=== PATIENT | female | born 1955 | race Caucasian/White ===

== ENCOUNTER 2021-02-13 14:48 | Inpatient (IN) | payer BC ==
[2021-02-13] MEDS ORDERED: NITROGLYCERIN SL TABS 0.4 MG TAB SUBLINGUAL PRN ×2 (15:01→16:18)
[2021-02-13] MEDS ORDERED: HEPARIN SODIUM 1,000 UN/ML (10ML VL) IV ONE ×2 (15:01→15:33)
[2021-02-13] MEDS ORDERED: LORazepam 2 MG/ML INJ IV STA (15:03)
[2021-02-13 15:08] LABS: Anisocytosis Slight; HCT 40.2 % (34.0-46.0); HGB 12.4 gm/dL (11.4-16.0); Hypochromasia Marked; MCH 30.6 pg (25.0-35.0); MCHC 30.9 g/dL (31.0-37.0); MCV 99.3 fL (80.0-100.0); Macrocytosis Slight; Mean Platelet Volume 8.2; Platelet Count 221 k/uL (150-450); Poikilocytosis Moderate; RBC 4.05 m/uL (3.80-5.40); RDW 17.3 % (11.5-15.5); WBC 20.5 k/uL (3.8-10.6)
[2021-02-13 15:08] LABS: Glucose,Whole Blood 244 mg/dL (75-99)
[2021-02-13] MEDS ORDERED: ASPIRIN 325 MG TAB ONE (15:26)
[2021-02-13] MEDS ORDERED: TICAGRELOR 90 MG TAB ONE (15:26)
[2021-02-13] MEDS ORDERED: LIDOCAINE 1% INJ 10MG/ML (20 ML MDV) SQ ONE (15:27)
[2021-02-13] MEDS ORDERED: SODIUM CHLORIDE 0.9% 500 ML 500 ML IV ONE (15:27)
[2021-02-13] MEDS ORDERED: VERAPAMIL SYRINGE (5 MG/10 ML) INTRAARTER ONE (15:28)
[2021-02-13] MEDS ORDERED: HEPARIN SODIUM 1,000 UN/ML (10ML VL) ONE (15:30)
--- NOTE | 2021-02-13 15:31 | XR ---
EXAMINATION TYPE: XR chest 1V portable DATE OF EXAM: 02/13/2021 COMPARISON: Chest x-ray 12/30/2013 HISTORY: Chest pain, intubated TECHNIQUE: Single frontal view of the chest is obtained. FINDINGS: Endotracheal tube is overlying the tracheal air column, there are overlying artifacts. The re is airspace disease seen within the right lung and possibly left. Heart size may be accentuated by apical lordotic and rotated technique. No evident pneumothorax or pleural effusion. Surgical clips a re present right upper quadrant. There is thoracic spondylosis. There is a displaced left third and f ifth rib fracture, nondisplaced left fourth rib fracture IMPRESSION: Status post intubation. There may be underlying pulmonary edema or pneumonia, follow-up PA and lateral chest x-ray when stable. Rib fractures noted on the left.
[2021-02-13] MEDS ORDERED: TICAGRELOR 90 MG TAB OG-TUBE ONE (15:33)
[2021-02-13] MEDS ORDERED: ASPIRIN 325 MG TAB OG-TUBE ONE (15:33)
--- NOTE | 2021-02-13 15:33 | P.CRDCN ---
History of Present Illness History of present illness: HISTORY OF PRESENTING ILLNESS This is a pleasant 65-year-old female past medical history significant for type 2 diabetes, hypertension, dyslipidemia. 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 We have been asked to see in consultation for STEMI. Patient is seen and examined in the emergency department. Apparently, patient was not feeling well during the day, she thought it was her blood sugars, she had symptoms of indigestion. She collapsed and arrested at home. EMS was called. CPR was ini tiated, patient was intubated on scene, given 5 doses of Epi, 5 shocks, 450mg IV amiodarone. ROSC was achieved. patient was transported to [facility]. On arrival to ER, patient's went into cardiac arrest, CPR was initiated with 1 Epi and 1 Bicarb given. EKG revealed atrial fibrillation with ST elevation V2-V5. REVIEW OF SYSTEMS Unable to complete review of systems due to mechanical ventilation PHYSICAL EXAMINATION Blood pressure 90s/50s HR 80s, still in a fib. CONSTITUTIONAL: Intubated on Mechanical Ventilation CHEST EXAMINATION: Lungs are diminished to auscultation bilaterally HEART EXAMINATION: Irregular rate and rhythm. S1, S2 heard. ABDOMEN: Soft, nontender. EXTREMITIES: 2+bilateral lower extremity edema NEUROLOGIC EXAMINATION: Intubated, mechanically ventilated ASSESSMENT STEMI Atrial fibrillation, unclear if paroxysmal or persistent at this time History of hypertension History of hyperlipidemia PLAN -Will proceed with cardiac catheterization at this time with Dr. Myles -Will reach out to family -Further recommendations based on clinical course Nurse Practitioner note has been reviewed, I agree with a documented findings and plan of care. Patient was seen and examined. Past Medical History Past Medical History: Unable to Obtain History of Any Multi-Drug Resistant Organisms: Unobtainable Past Surgical History: Unable to Obtain Past Psychological History: Unable to Obtain Smoking Status: Unknown if ever smoked Past Alcohol Use History: Unable to Obtain Past Drug Use History: Unable to Obtain Medications and Allergies Home Medications Medication Instructions Recorded Confirmed Type Aspirin 1 tab PO DAILY 02/18/14 02/22/14 History Atorvastatin [Lipitor] 40 mg PO DAILY 02/18/14 02/22/14 History Famotidine [Pepcid] 10 mg PO BID 02/18/14 02/22/14 History Insulin Glulisine [Apidra] 0 unit SQ DAILY 02/18/14 02/22/14 History Insulin NPH/Reg Insulin 70/30 0 unit SQ PC-BID 02/18/14 02/22/14 History [humuLIN 70/30 VIAL] Levothyroxine Sodium [Synthroid] 200 mcg PO DAILY 02/18/14 02/22/14 History Metoprolol Succinate [Toprol XL] 50 mg PO DAILY 02/18/14 02/22/14 History Telmisartan/Hydrochlorothiazid 1 each PO DAILY 02/18/14 02/22/14 History [Micardis Hct 40-12.5 mg Tablet] metFORMIN HCL [Glucophage] 500 mg PO BID 02/18/14 02/22/14 History rOPINIRole HCL [Requip] 0.25 mg PO HS 02/18/14 02/22/14 History Allergies Allergy/AdvReac Type Severity Reaction Status Date / Time Penicillins AdvReac Rash/Hives Verified 02/13/21 14:55 Physical Exam Vitals: Vital Signs Temp Pulse Resp BP Pulse Ox 02/13/21 15:11 85 16 93/57 02/13/21 15:08 93 16 92/68 94 L 02/13/21 14:56 97.3 F L 79 16 118/71 96 Intake and Output 02/13/21 02/13/21 02/13/21 06:59 14:59 22:59 Other: Weight 132.676 kg Results Current Medications Generic Name Dose Route Start Last Admin Trade Name Freq PRN Reason Stop Dose Admin Propofol 1,000 mg/ IV Solution 100 mls @ 0 mls/hr 02/13/21 15:15 IV .Q0M ADRIANA Protocol Titrate Nitroglycerin 0.4 mg 02/13/21 15:01 Nitroglycerin Sl Tabs 0.4 Mg Tab SUBLINGUAL Q5M PRN Chest Pain Intake and Output 02/13/21 02/13/21 02/13/21 06:59 14:59 22:59 Other: Weight 132.676 kg Patient Weight 02/14/21 06:59 Weight 132.676 kg
--- NOTE | 2021-02-13 15:34 | ED ---
CPR HPI - General Chief Complaint: Cardiac Arrest/CPR Stated Complaint: CPR Time Seen by Provider: 02/13/21 14:48 Source: EMS, RN notes reviewed Mode of arrival: EMS Limitations: altered mental status, physical limitation - History of Present Illness Initial Comments: 65-year-old female history diabetes no prior history of heart disease who apparently been having issues with her blood sugar all day and she had a witnessed arrest in front of family members. EMS was called a Jody protocol was begun patient was noted be in ventricular fibrillation. Patient was intubated with a 7.5 and a tracheal tube she was placed on monitor found have ventricular fibrillation she was shocked a total of 5 times she was given 450 mg of amiodarone. This continued the patient did get return of spontaneous circulation briefly upon arrival here was noted to be pulseless in what appear to be a PDA rhythm. ACLS was continued. MD Complaint: collapsed during rest - Related Data Home Medications Medication Instructions Recorded Confirmed Aspirin 1 tab PO DAILY 02/18/14 02/22/14 Atorvastatin [Lipitor] 40 mg PO DAILY 02/18/14 02/22/14 Famotidine [Pepcid] 10 mg PO BID 02/18/14 02/22/14 Insulin Glulisine [Apidra] 0 unit SQ DAILY 02/18/14 02/22/14 Insulin NPH/Reg Insulin 70/30 0 unit SQ PC-BID 02/18/14 02/22/14 [humuLIN 70/30 VIAL] Levothyroxine Sodium [Synthroid] 200 mcg PO DAILY 02/18/14 02/22/14 Metoprolol Succinate [Toprol XL] 50 mg PO DAILY 02/18/14 02/22/14 Telmisartan/Hydrochlorothiazid 1 each PO DAILY 02/18/14 02/22/14 [Micardis Hct 40-12.5 mg Tablet] metFORMIN HCL [Glucophage] 500 mg PO BID 02/18/14 02/22/14 rOPINIRole HCL [Requip] 0.25 mg PO HS 02/18/14 02/22/14 Allergies Allergy/AdvReac Type Severity Reaction Status Date / Time Penicillins AdvReac Rash/Hives Verified 02/13/21 14:55 Review of Systems ROS Statement: Those systems with pertinent positive or pertinent negative responses have been documented in the HPI. Limitations: ROS unobtainable due to patients medical condition Past Medical History Past Medical History: Unable to Obtain History of Any Multi-Drug Resistant Organisms: Unobtainable Past Surgical History: Unable to Obtain Past Psychological History: Unable to Obtain Smoking Status: Unknown if ever smoked Past Alcohol Use History: Unable to Obtain Past Drug Use History: Unable to Obtain General Exam - General Exam Comments Initial Comments: This is a well-developed obese female who is unresponsive with ACLS protocol in progress including chest compressions Limitations: altered mental status, physical limitation General appearance: other (Unresponsive) Head exam: Present: atraumatic, normocephalic, normal inspection Eye exam: Present: other (Pupils midline and minimally responsive) ENT exam: Present: other (Orotracheal tube in place) Neck exam: Present: normal inspection, other (No stridor JVD or bruits) Respiratory exam: Present: other (Good breath sounds with ventilatory efforts) Cardiovascular Exam: Present: other (Initially pulseless) GI/Abdominal exam: Present: soft, distended. Absent: bruit, pulsatile mass Rectal exam: Present: deferred Extremities exam: Present: other (Mottled-appearing skin) Back exam: Present: normal inspection Neurological exam: Present: other (Unresponsive) Skin exam: Present: other (Pale and mottled) Course Vital Signs 02/13/21 02/13/21 02/13/21 14:56 15:08 15:11 Temperature 97.3 F L Pulse Rate 79 93 85 Respiratory 16 16 16 Rate Blood Pressure 118/71 92/68 93/57 O2 Sat by Pulse 96 94 L Oximetry - Reevaluation(s) Reevaluation #1: 02/13/21 15:29 Shortly after ACLS protocol was continued the patient was noted have a pulse. EKG was performed showing evidence of an atrial fibrillation rhythm with ST elevations in leads V2 V3 V4 extending into V5. A STEMI alert was called Dr. tom on did come to the emergency department to see the patient. Patient was taken to the Engineering Equipment Operator. Reevaluation #2: 02/13/21 15:30 I did discuss the case with Dr. Nobles who is the admitting physician. Procedures - [place] Protocol (Time Out) Patient Identification (2 identifiers required): Chart, Arm Band Site Marked: Not Applicable Medical Decision Making - Lab Data Lab Results 02/13/21 Range/Units 14:58 POC Glucose (mg/dL) 244 H (75-99) mg/dL POC Glu Polo Coach ID Ana Martino - Radiology Data Radiology results: report reviewed (Image reviewed as well as report evidence of infiltrate versus pulmonary edema rib fractures on the left noted. Refreshes her left third and fifth rib fractures. Nondisplaced left fourth rib fracture ET tube does appear to be in good position), image reviewed Critical Care Time Critical Care Time: Yes Total Critical Care Time: 31 Critical Care Time: Critical care time includes initial presentation with history physical labs x- rays discussed with paramedics on arrival discussion with the admitting physician cardiology group. Review of old charting was available documentation of the above. Disposition Clinical Impression: Acute myocardial infarction, Cardiac arrest, Cardiac arrest with ventricular fibrillation, Signs of return of spontaneous circulation Disposition: ADMITTED IP TO THIS [facility] Condition: Critical Referrals: Thierno Brambila DO [Primary Care Provider] - 1-2 days
[2021-02-13 15:37] LABS: Albumin 3.4 g/dL (3.5-5.0); Calcium 8.6 mg/dL (8.4-10.2); Potassium 2.8 mmol/L (3.5-5.1); Total Bilirubin 0.4 mg/dL (0.2-1.3); Total Protein 6.2 g/dL (6.3-8.2)
[2021-02-13 15:42] LABS: INR 2.7 (<1.2); Partial Thromboplastin Time 26.2 sec (22.0-30.0); Prothrombin Time 26.1 sec (9.0-12.0)
[2021-02-13] MEDS: MIDAZOLAM 2 MG/2 ML VIAL IV ONE ×2 (15:50→16:05)
[2021-02-13] MEDS: METOPROLOL TARTRATE 5 MG/5 ML VIAL IVP ONE ×2 (16:00→16:15)
[2021-02-13] MEDS: POTASSIUM CHLORIDE 20 MEQ in WATER FOR INJECTION 1 100ML.BAG IVPB SCH ×4 (16:00→22:29)
[2021-02-13] MEDS ORDERED: METOPROLOL TARTRATE 5 MG/5 ML VIAL IVP ONE (16:04)
[2021-02-13 16:14] LABS: Band Neutrophils % 24 %; Eosinophils # (M) 0.21 k/uL (0-0.7); Lymphocytes # (M) 9.84 k/uL (1.0-4.8); Metamyelocytes # (M) 0.21 k/uL (0); Metamyelocytes % 1 %; Neutrophils % (M) 26 %; Nucleated Red Blood Cells 0 /100 WBC (0-0); Total Cells Counted 100
[2021-02-13] MEDS ORDERED: IOPAMIDOL-370 125ML BTL INJ ONE (16:16)
[2021-02-13] MEDS ORDERED: IOPAMIDOL-370 100ML BTL INJ ONE (16:17)
[2021-02-13] MEDS ORDERED: RX INFO: IV CONTRAST WAS GIVEN 1 EACH MISC MISCELLANE PRN (16:18)
[2021-02-13] MEDS ORDERED: ATROPINE SULFATE 0.1 MG/ML 10ML SYRINGE IV PRN (16:18)
[2021-02-13] MEDS ORDERED: MAG HYDROX/AL HYDROX/SIMETH 30 ML CUP PO PRN (16:18)
[2021-02-13] MEDS ORDERED: ZOLPIDEM 5 MG TAB PO PRN (16:18)
[2021-02-13 16:19] LABS: ABG Base Excess -5.8 mmol/L; ABG HCO3 21 mmol/L (21-25); ABG Oxygen Saturation 87.5 % (94-97); ABG PCO2 47 mmHg (35-45); ABG PH 7.26 (7.35-7.45); ABG TCO2 23 mmol/L (19-24); Allen Test Performed? Yes
[2021-02-13 16:23] LABS: ABG PO2 59 mmHg (83-108)
[2021-02-13 17:02] LABS: Glucose,Whole Blood 233 mg/dL (75-99)
--- NOTE | 2021-02-13 17:23 | CC ---
CARDIAC CATHETERIZATION REPORT DATE OF PROCEDURE: 02/13/2021 Mrs. Hale is a 65-year-old female with a known history of hypertension, hyperlipidemia, diabetes mellitus, who had a sudden cardiac arrest at home, was defibrillated and CPR was initiated by the EMS. She was transferred to the emergency room, where she had PEA requiring repeat CPR. Patient was intubated. Her EKG showed ST-segment elevation anteriorly. In view of that, recommendation was made regarding cardiac catheterization. No family was available. PROCEDURE DESCRIPTION: Patient was brought to the labor relations specialist. She was draped and prepped in conventional fashion. Using Seldinger technique, a 6-Rwandan sheath was introduced in the right radial artery. Selective left coronary angiography was performed using 6-Rwandan 3.75 EBU guiding catheter. After obtaining images of the left anterior descending artery and performing angioplasty and stenting, a 5-Rwandan 3.5 bend right Priscilla catheter was used to obtain images of the right coronary artery and the guiding catheter was used to cross the aortic valve. At the end procedure, catheter and sheath were removed. Hemostasis was obtained with deployment of a TR band. There was no immediate complication. Patient was returned to her room in stable condition, intubated but hemodynamically stable. FINDINGS: FLUOROSCOPY: There was calcification involving the left anterior descending artery in the proximal segment. LEFT MAIN: This is a large-sized vessel bifurcating into left circumflex and left anterior descending coronary artery. Left main coronary artery has no evidence of high- grade stenosis. LEFT ANTERIOR DESCENDING ARTERY: This is a large-sized vessel giving rise to 2 diagonal branches. At the takeoff of the second diagonal branch in the proximal segment at the takeoff of the first septal crane hoist or lift operator there is a 90% eccentric lesion in a heavily calcified segment. Following that, the vessel is totally occluded with no significant antegrade flow. LEFT CIRCUMFLEX: This is a large-sized vessel, nondominant, giving rise to a large obtuse marginal branch. The left circumflex as well as its branches have no evidence of obstructive coronary artery disease. RIGHT CORONARY ARTERY: This is a large dominant vessel bifurcating distally into PDA and posterolateral segment and branches. The right coronary artery in the proximal segment has an area of stenosis of 50% to 60%. There is another plaque in the mid segment distally bifurcating into PDA and PLV. The PLV appears to be totally occluded with no antegrade flow. COLLATERALS: There is a collateral from the septal crane hoist or lift operator toward the PLV. LEFT VENTRICULOGRAM: Left ventriculogram was not performed. HEMODYNAMICS: There was no gradient across the aortic valve. The left ventricular end- diastolic pressure was 30 to 35 mmHg. ANGIOPLASTY: After cannulating the left main, using a 0.014 balanced medium weight J-wire with the help of a FineCross microcatheter, the total occlusion was crossed and the wire was positioned distally. The microcatheter was removed and a 2.5 x 12 mm Trek balloon was advanced, and two inflations at 8 atmospheres were done. Following that the balloon was removed and a 2.75 x 28 mm Xience Skypoint stent was deployed and post-dilated at 16 atmospheres. Following that the balloon was removed and a 3.25 x 12 mm Xience Skypoint stent was deployed proximal to the first one and post-dilated at 14 atmospheres. Following that, a 3.25 x 12 mm NC Trek balloon was advanced, and inflations in proximal segment of the stents were performed at maximum of 12 atmospheres. After the last inflation, after appropriate wait, the balloon and the guidewire were withdrawn back into the guiding catheter. Images were obtained and repeated. Those images revealed stable successful stenting. Subsequently images of the right coronary artery were performed. Following that, catheter and sheath were removed. Of note, patient received a loading dose of Brilinta as well as 9000 mg of intravenous heparin. The ACT was followed. RESULTS: 1. Totally occluded proximal LAD with reduction of stenosis post angioplasty from 100% to 0%. 2. 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 RECOMMENDATIONS: The patient will be continued on aspirin, Brilinta, beta beni, GONZALEZ inhibitor and statin. An echocardiogram with Doppler will be obtained. Her cardiac enzymes will be followed. Neurologically she will be followed, and depending on her progress, further recommendations will be made. The prognosis remains guarded. Duration of the sedation was 47 minutes. MMFILIPPOL / JOHNN: [id number] /
--- NOTE | 2021-02-13 17:28 | LTR ---
February 13, 2021 To: Dr. Brambila Regarding: Radha Hale (59) Dear Dr. Brambila, I had the pleasure of performing coronary angiography, angioplasty and stenting on Mrs. Hale at [facility] on February 13, and a full copy of the procedure note will be forwarded to you. In brief, she presented with an acute anterior wall myocardial infarction and underwent successful recanalization of the totally occluded LAD. I am hopeful that this procedure will stabilize her status and hopefully her neurological status will stabilize. Depending on her progress, further recommendations will be made. Thank you again for allowing me to participate in this patient's care. Please feel free to call with any questions. Sincerely, Jasper Myles M.D. BLAKE / ZORAIDA: [id number] /
[2021-02-13] MEDS: SODIUM CHLORIDE 0.9% 1,000 ML IV SCH (18:00)
--- NOTE | 2021-02-13 18:13 | P.CNPUL ---
History of Present Illness Consult date: 02/13/21 Requesting physician: Jordan Nobles Reason for consult: dyspnea, chest pain, hypoxemia Chief complaint: Chest pain. History of present illness: Pulmonary/critical care consult dated 02/13/2021. 65-year-old female with a history of diabetes, hypothyroidism, hyperlipidemia, hypertension, gastroesophageal reflux disease, and obesity, who was seen in the emergency room, on February 13. She apparently had a witnessed cardiac arrest in front of family members. EMS was called, and ACLS protocol was begun. The patient was noted to be in ventricular fibrillation. She apparently was intubated, and placed on the monitor and found to have ventricular fibrillation, and was defibrillated, a total of 5 times he was given 450 mg of amiodarone. She did apparently have spontaneous circulation briefly upon arrival, but apparently did develop PEA rhythm in the emergency room, and ACLS was continued. The patient was taken to the Customer Care Assistant, and found to have a complete occlusion of the LAD. 2 stents replaced, via the right radial approach. The patient came back to the intensive care unit on the ventilator. She is on the volume assist control mode, rate 18, tidal volumes 375, FiO2 100%, and PEEP of 10. Initial gases showed a pO2 of 59, pCO2 47, and a pH is 7.26. These blood gases were d one on a rate of 14, and a PEEP of 5. Hence the increase in rate and PEEP. The patient is currently on Toprol fall at 25 mcg/kg/m, and saline at 50 mL an hour. I reviewed her medications at the bedside with the nurse, Rachael. The plan is to keep her on the ventilator overnight, and work on getting her extubated in the morning. Because of a cardiac arrest, no history could be obtained. The medical history that I noted above, was gleaned from the medications that she takes. They included Requip, Glucophage, micardis HCT, metoprolol, Synthroid, insulin, famotidine, Lipitor, and aspirin. Review of Systems REVIEW OF SYSTEMS: Review of systems cannot be obtained on this patient, because she presented to the emergency department, and cardiac arrest, and also to the intensive care unit, ventilated and sedated. CONSTITUTIONAL: [Negative.] NEUROLOGIC: [ Negative.] HEENT: [ Negative.] CARDIAC: [Negative.] PULMONARY: [Negative.] GI: [Negative.] : [Negative.] RHEUMATOLOGIC: [ Negative.] IMMUNOLOGIC: [ Negative.] ENDOCRINE: [Negative. ] DERMATOLOGIC: [Negative.] Past Medical History Past Medical History: Unable to Obtain History of Any Multi-Drug Resistant Organisms: Unobtainable Past Surgical History: Unable to Obtain Past Psychological History: Unable to Obtain Smoking Status: Unknown if ever smoked Past Alcohol Use History: Unable to Obtain Past Drug Use History: Unable to Obtain Medications and Allergies Home Medications Medication Instructions Recorded Confirmed Type Aspirin 81 tab PO DAILY 02/18/14 02/13/21 History Atorvastatin [Lipitor] 40 mg PO DAILY 02/18/14 02/13/21 History Levothyroxine Sodium [Synthroid] 200 mcg PO [id number] 02/18/14 02/13/21 History Famotidine [Pepcid] 40 mg PO BID 02/13/21 02/13/21 History Insulin NPH Hum/Reg Insulin Hm 70 unit SQ DAILY 02/13/21 02/13/21 History [Relion Novolin 70-30 Flexpen] Insulin NPH Hum/Reg Insulin Hm 90 unit SQ HS 02/13/21 02/13/21 History [Relion Novolin 70-30 Flexpen] Levothyroxine Sodium [Synthroid] 125 mcg PO CHEW 02/13/21 02/13/21 History Metoprolol Succinate (ER) [Toprol 100 mg PO DAILY 02/13/21 02/13/21 History XL] cloNIDine HCL 0.1 mg PO BID 02/13/21 02/13/21 History Allergies Allergy/AdvReac Type Severity Reaction Status Date / Time Penicillins AdvReac Rash/Hives Verified 02/13/21 17:35 Physical Exam Osteopathic Statement: *. No significant issues noted on an osteopathic structural exam other than those noted in the History and Physical/Consult. Vitals: Vital Signs Temp Pulse Resp BP Pulse Ox 02/13/21 15:11 85 16 93/57 02/13/21 15:08 93 16 92/68 94 L 02/13/21 14:56 97.3 F L 79 16 118/71 96 Intake and Output 02/13/21 02/13/21 02/13/21 06:59 14:59 22:59 Intake Total 250 Balance 250 Intake: IV 250 Other: Weight 132.676 kg Obese white female, with an orally placed endotracheal tube and NG tube. She is currently sedated on propofol. HEENT examination is grossly unremarkable. Neck supple. Full range of motion. No adenopathy thyromegaly or neck vein distention. Cardiovascular examination reveals regular rhythm rate. S1-S2 normal. No S3 or S4. No discernible murmur noted. Heart sounds are distant. Heart rate is 85 bpm. Lungs reveal scattered bilateral rhonchi. No wheezes or crackles. Breath sounds equal bilaterally.. Abdomen soft, and obese. Bowel sounds are not noted. Extremities are intact. Mild edema. No cyanosis or clubbing. Skin is without rash or lesion. Neurologic examination could not be assessed as the patient is currently sed ated. Results - Laboratory Findings CBC and BMP: 02/13/21 14:55 02/13/21 14:55 ABG ABG pH 7.26 (7.35-7.45) L 02/13/21 16:16 ABG pCO2 47 mmHg (35-45) H 02/13/21 16:16 ABG pO2 59 mmHg (83-108) L* 02/13/21 16:16 ABG O2 Saturation 87.5 % (94-97) L 02/13/21 16:16 PT/INR, D-dimer PT 26.1 sec (9.0-12.0) H 02/13/21 14:55 INR 2.7 (<1.2) H 02/13/21 14:55 Abnormal lab findings: Abnormal Labs 02/13/21 02/13/21 02/13/21 14:55 14:55 14:55 WBC 20.5 H MCHC 30.9 L RDW 17.3 H Neutrophils # (Manual) 10.20 H Lymphocytes # (Manual) 9.84 H Metamyelocytes # (Man) 0.21 H PT 26.1 H INR 2.7 H ABG pH ABG pCO2 ABG pO2 ABG O2 Saturation Potassium 2.8 L Carbon Dioxide 17 L Glucose 265 H POC Glucose (mg/dL) AST 83 H ALT 36 H Total Protein 6.2 L Albumin 3.4 L 02/13/21 02/13/21 02/13/21 14:58 16:16 17:01 WBC MCHC RDW Neutrophils # (Manual) Lymphocytes # (Manual) Metamyelocytes # (Man) PT INR ABG pH 7.26 L ABG pCO2 47 H ABG pO2 59 L* ABG O2 Saturation 87.5 L Potassium Carbon Dioxide Glucose POC Glucose (mg/dL) 244 H 233 H AST ALT Total Protein Albumin - Diagnostic Findings Chest x-ray: image reviewed Assessment and Plan Assessment: [id number] cardiopulmonary arrest, with cardiopulmonary resuscitation, and eventual return of spontaneous circulation. The patient appeared to be intubated in the field, and defibrillated 5 times. She did have return of spontaneous circulation, but was also found to have pulseless electrical activity (PEA). Status post stent placement, to the 100% occluded LAD, via the right radial approach. Routine postoperative ventilator management, status post intubation on February 13. History of diabetes mellitus. History of hypothyroidism. History of hyperlipidemia. History of hypertension. Obesity. History of gastroesophageal reflux disease. Plan: Plan dated 02/13/2021. The patient will be maintained on mechanical ventilator overnight. We'll attempt to get her weaned and extubated tomorrow. Currently, the ventilator settings were changed to increase her rate up from 14 up to 18, and increase the PEEP from 5 up to 10 cm water. This will hopefully improve oxygenation, reduces CO2, and raise the PTH. The patient's on propofol at 25 mcg/kg/m. The patient's receiving saline at 50 mL an hour. Chest x-rays consistent with flash pulmonary edema. I've asked the respiratory therapist to start the patient on DuoNeb, every 4 hours [id number]. Additional recommendations and suggestions are forthcoming. Prognosis is guarded. Time with Patient: Greater than 30
[2021-02-13] MEDS: SPIRONOLACTONE 25 MG TAB PO SCH (18:43)
[2021-02-13] MEDS: METOPROLOL TARTRATE 25 MG TAB PO SCH (20:23)
[2021-02-13] MEDS: TICAGRELOR 90 MG TAB PO SCH (20:23)
[2021-02-13] MEDS: ATORVASTATIN 80 MG TAB PO SCH (20:23)
[2021-02-13] MEDS: lisinopriL 5 MG TAB PO SCH (20:23)
[2021-02-13] MEDS: IPRATROPIUM-ALBUTEROL 3 ML NEB INHALATION SCH ×2 (20:36→23:24)
[2021-02-13] MEDS: CHLORHEXIDINE GLUCONATE 15 ML CUP MUCOUS MEM SCH (21:04)
[2021-02-14 00:23] LABS: Glucose,Whole Blood 261 mg/dL (75-99)
[2021-02-14] MEDS: INSULIN ASPART (NovoLOG) 100 UNIT/ML VIAL SQ SCH ×5 (00:23→23:24)
[2021-02-14] MEDS: IPRATROPIUM-ALBUTEROL 3 ML NEB INHALATION SCH ×5 (03:26→20:32)
[2021-02-14 04:06] LABS: African American GFR (CKD) >90 (>60 ml/min/1.73 sqM); Anion Gap 6 mmol/L; Blood Urea Nitrogen 18 mg/dL (7-17); Carbon Dioxide 26 mmol/L (22-30); Chloride 103 mmol/L (98-107); Glucose 238 mg/dL (74-99); Non-African American GFR(CKD) >90 (>60 ml/min/1.73 sqM); Potassium 4.7 mmol/L (3.5-5.1); Sodium 135 mmol/L (137-145)
[2021-02-14 04:11] LABS: HCT 37.6 % (34.0-46.0); HGB 12.2 gm/dL (11.4-16.0); Hypochromasia Slight; MCH 29.9 pg (25.0-35.0); MCHC 32.3 g/dL (31.0-37.0); Mean Platelet Volume 7.5; Platelet Count 205 k/uL (150-450); RBC 4.06 m/uL (3.80-5.40); RDW 15.8 % (11.5-15.5); WBC 20.1 k/uL (3.8-10.6)
[2021-02-14 04:12] LABS: MCV 92.5 fL (80.0-100.0)
[2021-02-14 05:30] LABS: Glucose,Whole Blood 230 mg/dL (75-99)
[2021-02-14 05:30] LABS: ABG Base Excess 4.2 mmol/L; ABG HCO3 29 mmol/L (21-25); ABG Oxygen Saturation 99.7 % (94-97); ABG PCO2 45 mmHg (35-45); ABG PH 7.42 (7.35-7.45); ABG PO2 159 mmHg (83-108); ABG TCO2 30 mmol/L (19-24); Allen Test Performed? Yes
[2021-02-14] MEDS: LEVOTHYROXINE 100 MCG TAB PO SCH (05:53)
[2021-02-14 06:30] LABS: Amorphous Sediment,Urine Moderate /hpf; Appearance,Urine Turbid (Clear); Bilirubin,Urine Negative (Negative); Blood,Urine Negative (Negative); Color,Urine Yellow; Glucose,Urine (UA) 2+ (Negative); Ketones,Urine Negative (Negative); Leukocyte Esterase,Urine Small (Negative); Mucus,Urine Occasional /hpf; Nitrite,Urine Negative (Negative); PH, Urine 5.5 (5.0-8.0); Protein,Urine 1+ (Negative); Squamous Epithelial Cell,Urine 1 /hpf (0-4); Urobilinogen,Urine <2.0 mg/dL (<2.0); WBC,Urine 8 /hpf (0-5)
[2021-02-14 06:40] LABS: Specific Gravity,Urine >1.050 (1.001-1.035)
[2021-02-14] MEDS: lisinopriL 5 MG TAB PO SCH ×2 (08:02→21:05)
[2021-02-14] MEDS: ASPIRIN 81 MG PO SCH (08:02)
[2021-02-14] MEDS: TICAGRELOR 90 MG TAB PO SCH ×2 (08:02→21:05)
[2021-02-14] MEDS: SPIRONOLACTONE 25 MG TAB PO SCH (08:02)
[2021-02-14] MEDS: CHLORHEXIDINE GLUCONATE 15 ML CUP MUCOUS MEM SCH ×2 (08:02→21:05)
[2021-02-14] MEDS: METOPROLOL TARTRATE 25 MG TAB PO SCH ×2 (08:02→21:05)
--- NOTE | 2021-02-14 08:53 | XR ---
EXAMINATION TYPE: XR chest 1V portable DATE OF EXAM: 02/14/2021 COMPARISON: Chest x-ray 02/13/2021 HISTORY: Intubated TECHNIQUE: Single frontal view of the chest is obtained. FINDINGS: Endotracheal tube, NG tube are overlying appropriate positions. There are overlying artifa cts, exam is expiratory. There is no evident pneumothorax. Basilar density obscures the left hemidiap hragm. There is improvement in aeration in the right lung. Cardiac mediastinal silhouette is likely s table. There are left-sided rib fractures seen on previous exam which are not as well seen on today's . IMPRESSION: There may be basilar atelectasis, effusion.
--- NOTE | 2021-02-14 09:32 | P.PN ---
Subjective Progress Note Date: 02/14/21 Principal diagnosis: Cardiac arrest 65-year-old female with a history of diabetes, hypothyroidism, hyperlipidemia, hypertension, gastroesophageal reflux disease, and obesity, who was seen in the emergency room, on February 13. She apparently had a witnessed cardiac arrest in front of family members. EMS was called, and ACLS protocol was begun. The patient was noted to be in ventricular fibrillation. She apparently was intubated, and placed on the monitor and found to have ventricular fibrillation, and was defibrillated, a total of 5 times he was given 450 mg of amiodarone. She did apparently have spontaneous circulation briefly upon arrival, but apparently did develop PEA rhythm in the emergency room, and ACLS was continued. The patient was taken to the Block [facility], and found to have a complete occlusion of the LAD. 2 stents replaced, via the right radial approach. The patient came back to the intensive care unit on the ventilator. She is on the volume assist control mode, rate 18, tidal volumes 375, FiO2 100%, and PEEP of 10. Initial gases showed a pO2 of 59, pCO2 47, and a pH is 7.26. These blood gases were done on a rate of 14, and a PEEP of 5. Hence the increase in rate and PEEP. The patient is currently on Toprol fall at 25 mcg/kg/m, and saline at 50 mL an hour. I reviewed her medications at the bedside with the nurse, Rachael. The plan is to keep her on the ventilator overnight, and work on getting her extubated in the morning. Because of a cardiac arrest, no history could be obtained. The medical history that I noted above, was gleaned from the medications that she takes. They included Requip, Glucophage, micardis HCT, metoprolol, Synthroid, insulin, famotidine, Lipitor, and aspirin. The patient is seen today 02/14/2021 in follow-up in the intensive care unit. She remains intubated, sedated and on the mechanical ventilator. Current settings are assist-control mode at a rate of 18, tidal volume 375, FiO2 40% and a PEEP of 10. Morning blood gases revealed a PaO2 of 159, pCO2 44, pH 7.4 to on 50% FiO2. She is sedated with propofol at 45 mcg/kg/m. 0.9 normal saying at 50 MLS per hour. Chest x-ray reveals good placement of the endotracheal tube and nasogastric tubes. There is no pneumothorax. Some basilar density obscures left hemidiaphragm. Improved aeration in the right lung. Some bibasilar atelectasis. Left-sided rib fractures. Sputum culture pending. White count 20.1. Hemoglobin 12.2. Platelets 205. Sodium 135. Potassium 4.7. Creatinine 0.72. Glucose 238. Urine culture pending. She's been initiated and DuoNeb inhalations. Remains on Brilinta and aspirin. Objective - Vital Signs Vital signs: Vital Signs Temp 99.3 F 02/14/21 08:00 Pulse 86 02/14/21 08:24 Resp 21 02/14/21 08:24 BP 112/59 02/14/21 08:00 Pulse Ox 99 02/14/21 08:00 Intake & Output 02/13/21 02/14/21 02/14/21 18:59 06:59 18:59 Intake Total 219.055 4785.736 197.146 Output Total 250 555 115 Balance 81.510 673.736 82.146 Weight 132.676 kg 136.6 kg Intake: IV 300 900 100 Potassium Chloride 20 meq 300 In Water For Injection 1 100ml.bag @ 50 mls/hr IVPB Q2HR ADRIANA Rx#: [id number] Sodium Chloride 0.9% 1, 50 600 100 000 ml @ 50 mls/hr IV . Q20H ADRIANA Rx#:[id number] Intake, IV Titration 31.510 328.736 97.146 Amount propofoL 1,000 mg In 31.510 328.736 97.146 Empty Bag 1 bag @ Titrate IV .Q0M ADRIANA Rx#: [id number] Output: Urine 250 555 115 Other: Voiding Method Indwelling Catheter Indwelling Catheter - Exam GENERAL EXAM: Intubated, sedated 65-year-old obese female, in no apparent distress. HEAD: Normocephalic. EYES: Sluggish reaction of pupils, equal size. NOSE: Clear with pink turbinates. THROAT: No erythema or exudates. NECK: No masses, no JVD. CHEST: No chest wall deformity. LUNGS: Equal air entry with crackles in the bilateral bases. CVS: S1 and S2 normal with no audible murmur, regular rhythm. ABDOMEN: No hepatosplenomegaly, normal bowel sounds, no guarding or rigidity. SPINE: No scoliosis or deformity SKIN: No rashes CENTRAL NERVOUS SYSTEM: No focal deficits, tone is normal in all 4 extremities. EXTREMITIES: There is no peripheral edema. No clubbing, no cyanosis. Peripheral pulses are intact. - Labs CBC & Chem 7: 02/14/21 03:18 02/14/21 03:18 Labs: Abnormal Lab Results - Last 24 Hours (Table) 02/13/21 02/13/21 02/13/21 Range/Units 14:55 14:55 14:55 WBC 20.5 H (3.8-10.6) k/uL MCHC 30.9 L (31.0-37.0) g/dL RDW 17.3 H (11.5-15.5) % Neutrophils # (Manual) 10.20 H (1.3-7.7) k/uL Lymphocytes # (Manual) 9.84 H (1.0-4.8) k/uL Metamyelocytes # (Man) 0.21 H (0) k/uL PT 26.1 H (9.0-12.0) sec INR 2.7 H (<1.2) ABG pH (7.35-7.45) ABG pCO2 (35-45) mmHg ABG pO2 (83-108) mmHg ABG HCO3 (21-25) mmol/L ABG Total CO2 (19-24) mmol/L ABG O2 Saturation (94-97) % Sodium (137-145) mmol/L Potassium 2.8 L (3.5-5.1) mmol/L Carbon Dioxide 17 L (22-30) mmol/L BUN (7-17) mg/dL Glucose 265 H (74-99) mg/dL POC Glucose (mg/dL) (75-99) mg/dL Calcium (8.4-10.2) mg/dL AST 83 H (14-36) U/L ALT 36 H (4-34) U/L Troponin I (0.000-0.034) ng/mL Total Protein 6.2 L (6.3-8.2) g/dL Albumin 3.4 L (3.5-5.0) g/dL Urine Appearance (Clear) Ur Specific [place] (1.001-1.035) Urine Protein (Negative) Urine Glucose (UA) (Negative) Ur Leukocyte Esterase (Negative) Urine WBC (0-5) /hpf Amorphous Sediment (None) /hpf Urine Mucus (None) /hpf 02/13/21 02/13/21 02/13/21 Range/Units 14:58 16:16 17:01 WBC (3.8-10.6) k/uL MCHC (31.0-37.0) g/dL RDW (11.5-15.5) % Neutrophils # (Manual) (1.3-7.7) k/uL Lymphocytes # (Manual) (1.0-4.8) k/uL Metamyelocytes # (Man) (0) k/uL PT (9.0-12.0) sec INR (<1.2) ABG pH 7.26 L (7.35-7.45) ABG pCO2 47 H (35-45) mmHg ABG pO2 59 L* (83-108) mmHg ABG HCO3 (21-25) mmol/L ABG Total CO2 (19-24) mmol/L ABG O2 Saturation 87.5 L (94-97) % Sodium (137-145) mmol/L Potassium (3.5-5.1) mmol/L Carbon Dioxide (22-30) mmol/L BUN (7-17) mg/dL Glucose (74-99) mg/dL POC Glucose (mg/dL) 244 H 233 H (75-99) mg/dL Calcium (8.4-10.2) mg/dL AST (14-36) U/L ALT (4-34) U/L Troponin I (0.000-0.034) ng/mL Total Protein (6.3-8.2) g/dL Albumin (3.5-5.0) g/dL Urine Appearance (Clear) Ur Specific [place] (1.001-1.035) Urine Protein (Negative) Urine Glucose (UA) (Negative) Ur Leukocyte Esterase (Negative) Urine WBC (0-5) /hpf Amorphous Sediment (None) /hpf Urine Mucus (None) /hpf 02/13/21 02/13/21 02/14/21 Range/Units 18:08 20:31 00:21 WBC (3.8-10.6) k/uL MCHC (31.0-37.0) g/dL RDW (11.5-15.5) % Neutrophils # (Manual) (1.3-7.7) k/uL Lymphocytes # (Manual) (1.0-4.8) k/uL Metamyelocytes # (Man) (0) k/uL PT (9.0-12.0) sec INR (<1.2) ABG pH (7.35-7.45) ABG pCO2 (35-45) mmHg ABG pO2 (83-108) mmHg ABG HCO3 (21-25) mmol/L ABG Total CO2 (19-24) mmol/L ABG O2 Saturation (94-97) % Sodium (137-145) mmol/L Potassium (3.5-5.1) mmol/L Carbon Dioxide (22-30) mmol/L BUN (7-17) mg/dL Glucose (74-99) mg/dL POC Glucose (mg/dL) 261 H (75-99) mg/dL Calcium (8.4-10.2) mg/dL AST (14-36) U/L ALT (4-34) U/L Troponin I 9.470 H* 23.900 H* (0.000-0.034) ng/mL Total Protein (6.3-8.2) g/dL Albumin (3.5-5.0) g/dL Urine Appearance (Clear) Ur Specific [place] (1.001-1.035) Urine Protein (Negative) Urine Glucose (UA) (Negative) Ur Leukocyte Esterase (Negative) Urine WBC (0-5) /hpf Amorphous Sediment (None) /hpf Urine Mucus (None) /hpf 02/14/21 02/14/21 02/14/21 Range/Units 03:18 03:18 05:16 WBC 20.1 H (3.8-10.6) k/uL MCHC (31.0-37.0) g/dL RDW 15.8 H (11.5-15.5) % Neutrophils # (Manual) (1.3-7.7) k/uL Lymphocytes # (Manual) (1.0-4.8) k/uL Metamyelocytes # (Man) (0) k/uL PT (9.0-12.0) sec INR (<1.2) ABG pH (7.35-7.45) ABG pCO2 (35-45) mmHg ABG pO2 159 H (83-108) mmHg ABG HCO3 29 H (21-25) mmol/L ABG Total CO2 30 H (19-24) mmol/L ABG O2 Saturation 99.7 H (94-97) % Sodium 135 L (137-145) mmol/L Potassium (3.5-5.1) mmol/L Carbon Dioxide (22-30) mmol/L BUN 18 H (7-17) mg/dL Glucose 238 H (74-99) mg/dL POC Glucose (mg/dL) (75-99) mg/dL Calcium 8.0 L (8.4-10.2) mg/dL AST (14-36) U/L ALT (4-34) U/L Troponin I (0.000-0.034) ng/mL Total Protein (6.3-8.2) g/dL Albumin (3.5-5.0) g/dL Urine Appearance (Clear) Ur Specific [place] (1.001-1.035) Urine Protein (Negative) Urine Glucose (UA) (Negative) Ur Leukocyte Esterase (Negative) Urine WBC (0-5) /hpf Amorphous Sediment (None) /hpf Urine Mucus (None) /hpf 02/14/21 02/14/21 Range/Units 05:29 05:33 WBC (3.8-10.6) k/uL MCHC (31.0-37.0) g/dL RDW (11.5-15.5) % Neutrophils # (Manual) (1.3-7.7) k/uL Lymphocytes # (Manual) (1.0-4.8) k/uL Metamyelocytes # (Man) (0) k/uL PT (9.0-12.0) sec INR (<1.2) ABG pH (7.35-7.45) ABG pCO2 (35-45) mmHg ABG pO2 (83-108) mmHg ABG HCO3 (21-25) mmol/L ABG Total CO2 (19-24) mmol/L ABG O2 Saturation (94-97) % Sodium (137-145) mmol/L Potassium (3.5-5.1) mmol/L Carbon Dioxide (22-30) mmol/L BUN (7-17) mg/dL Glucose (74-99) mg/dL POC Glucose (mg/dL) 230 H (75-99) mg/dL Calcium (8.4-10.2) mg/dL AST (14-36) U/L ALT (4-34) U/L Troponin I (0.000-0.034) ng/mL Total Protein (6.3-8.2) g/dL Albumin (3.5-5.0) g/dL Urine Appearance Turbid H (Clear) Ur Specific [place] >1.050 H (1.001-1.035) Urine Protein 1+ H (Negative) Urine Glucose (UA) 2+ H (Negative) Ur Leukocyte Esterase Small H (Negative) Urine WBC 8 H (0-5) /hpf Amorphous Sediment Moderate H (None) /hpf Urine Mucus Occasional H (None) /hpf Microbiology - Last 24 Hours (Table) 02/13/21 15:15 Sputum Culture - Preliminary Sputum Assessment and Plan Assessment: 1 [id number] cardiopulmonary arrest, with cardiopulmonary resuscitation, and eventual return of spontaneous circulation. The patient appeared to be intubated in the field, and defibrillated 5 times. She did have return of spontaneous circulation, but was also found to have pulseless electrical activity (PEA). 2 Status post stent placement, to the 100% occluded LAD, via the right radial approach. 3 Routine postoperative ventilator management, status post intubation on February 13. 4 History of diabetes mellitus. 5 History of hypothyroidism. 6 History of hyperlipidemia. 7 History of hypertension. 8 Obesity. 9 History of gastroesophageal reflux disease. Plan: The patient was seen and evaluated She will receive a daily interruption of sedation Possible spontaneous breathing trial with a pressure support of 5 and CPAP If she does well we'll plan for extubation If not able to extubate we will initiate tube feedings Follow-up chest x-ray, ABGs and labs in the a.m. We will continue to follow and make further recommendations based on her clinical status Critical care time 38 minutes I, the cosigning physician, performed a history & physical examination of the patient. Lungs sounds crackles in the posterior bases. Maintaining good O2 saturations in the 90s on 40% FiO2 and a PEEP of 10 via the mechanical ventilator. I discussed the assessment and plan of care with my nurse practitioner, Marilin Dumont. I attest to the above note as dictated by her.
[2021-02-14] MEDS: DEXMEDETOMIDINE/0.9% NACL(PMX) 400 MCG in EMPTY BAG 1 BAG IV SCH (09:48)
--- NOTE | 2021-02-14 11:10 | P.HPIM ---
History of Present Illness This is a pleasant 65 years old female with past medical history of Coronary Artery Disease , Diabetes Mellitus, GERD, Hypertension, hypothyroidism. She is a patient of Dr. Brambila Patient presents with unresponsiveness and and cardiac arrest. CPR was ongoing through EMS, patient was found in ventricular fibrillation per EMS, Pt was given 5 epi, 5 shocks and 450mg of Amniodarone. Pt did have ROSC for a few minutes but when arriving to ER no pulse present. In the emergency room patient got intubated and placed on mechanical ventilation. Initial vitals showed temperature 97.3, heart rate 79, breathing rate 16, blood pressure 118/71 and 92/62 and she was saturating 96% on mechanical ventilation Labs were showing leukocytosis of 20.5 K. INR 2.7 PH 7.2, pCO2 47 and pO2 59. Sodium 137, low potassium 2.8, normal creatinine 0.9. Glucose elevated to 65. Liver enzymes slightly elevated with AST 83 and ALT 36. Trending up troponin 0.02, 9.4 and 23.9. Coronavirus chest x-ray: Status post intubation. There may be underlying pulmonary edema or pneumonia. Repeat fracture noted on the left Nondetected. EKG showing ST elevation in anterior septal leads V1 to V4 Patient was taken to emergent cardiac cath and she underwent cardiac catheterization with PCI to the totally occluded proximal LAD. After the procedure patient was placed on aspirin, Brillinta ,and beta beni, GONZALEZ inhibitor and statin Today patient is still intubated in the ICU, and on mechanical ventilation. She has PEEP of 10, FiO2 of 40%, tidal volume 375, she has sinus rhythm at 90 bpm, she has a Mcneil and OG tube. She has normal saline running at 50 mL per hour Review of Systems n/a Past Medical History Past Medical History: Coronary Artery Disease (CAD), Diabetes Mellitus, G ERD/Reflux, Hypertension, Thyroid Disorder History of Any Multi-Drug Resistant Organisms: None Reported Past Surgical History: Cholecystectomy Past Anesthesia/Blood Transfusion Reactions: No Reported Reaction Past Psychological History: No Psychological Hx Reported Smoking Status: Never smoker Past Alcohol Use History: Unable to Obtain Past Drug Use History: Unable to Obtain Medications and Allergies Home Medications Medication Instructions Recorded Confirmed Type Aspirin 81 tab PO DAILY 02/18/14 02/13/21 History Atorvastatin [Lipitor] 40 mg PO DAILY 02/18/14 02/13/21 History Levothyroxine Sodium [Synthroid] 200 mcg PO [id number] 02/18/14 02/13/21 History Famotidine [Pepcid] 40 mg PO BID 02/13/21 02/13/21 History Insulin NPH Hum/Reg Insulin Hm 70 unit SQ DAILY 02/13/21 02/13/21 History [Relion Novolin 70-30 Flexpen] Insulin NPH Hum/Reg Insulin Hm 90 unit SQ HS 02/13/21 02/13/21 History [Relion Novolin 70-30 Flexpen] Levothyroxine Sodium [Synthroid] 125 mcg PO CHEW 02/13/21 02/13/21 History Metoprolol Succinate (ER) [Toprol 100 mg PO DAILY 02/13/21 02/13/21 History XL] cloNIDine HCL 0.1 mg PO BID 02/13/21 02/13/21 History Allergies Allergy/AdvReac Type Severity Reaction Status Date / Time Penicillins AdvReac Rash/Hives Verified 02/13/21 17:35 Physical Exam Vitals: Vital Signs Temp Pulse Resp BP Pulse Ox 02/14/21 07:00 82 25 H 119/55 98 02/14/21 06:00 86 25 H 124/63 98 02/14/21 05:00 86 28 H 118/59 99 02/14/21 04:05 85 02/14/21 04:00 97.5 F L 84 24 117/64 100 02/14/21 03:39 85 02/14/21 03:00 79 25 H 119/64 99 02/14/21 02:00 76 18 118/52 100 02/14/21 01:00 82 26 H 120/64 100 02/14/21 00:00 75 24 125/62 99 02/13/21 23:50 77 02/13/21 23:30 82 02/13/21 23:00 75 25 H 107/70 100 02/13/21 22:00 78 30 H 103/83 99 02/13/21 21:00 92 31 H 143/69 100 02/13/21 20:00 98.5 F 91 31 H 123/90 100 02/13/21 19:00 84 27 H 95/63 100 02/13/21 18:30 84 26 H 131/71 100 02/13/21 18:00 91 31 H 133/95 100 02/13/21 17:30 85 31 H 115/65 98 02/13/21 17:00 96 32 H 129/105 93 L 02/13/21 16:54 95 35 H 02/13/21 16:00 27 H 02/13/21 15:11 85 16 93/57 02/13/21 15:08 93 16 92/68 94 L 02/13/21 14:56 97.3 F L 79 16 118/71 96 Intake and Output 02/13/21 02/14/21 02/14/21 22:59 06:59 14:59 Intake Total 935.310 624.936 50 Output Total 435 370 50 Balance 500.310 254.936 0 Intake: IV 750 450 50 Potassium Chloride 20 meq 250 50 In Water For Injection 1 100ml.bag @ 50 mls/hr IVPB Q2HR ADRIANA Rx#: [id number] Sodium Chloride 0.9% 1, 250 400 50 000 ml @ 50 mls/hr IV . Q20H ADRIANA Rx#:[id number] Intake, IV Titration 185.310 174.936 Amount propofoL 1,000 mg In 185.310 174.936 Empty Bag 1 bag @ Titrate IV .Q0M ADRIANA Rx#: [id number] Output: Urine 435 370 50 Other: Voiding Method Indwelling Catheter Indwelling Catheter Weight 132.676 kg 136.6 kg -GENERAL: The patient is sedated and intubated, not in any acute distress. morbidly obese HEENT: Pupils are round and equally reacting to light. EOMI. No scleral icterus. No conjunctival pallor. Normocephalic, atraumatic. No pharyngeal erythema. No thyromegaly. CARDIOVASCULAR: S1 and S2 present. No murmurs, rubs, or gallops. PULMONARY: Chest is clear to auscultation, no wheezing. ABDOMEN: Soft, nontender, nondistended, normoactive bowel sounds. No palpable organomegaly. MUSCULOSKELETAL: No joint swelling or deformity. EXTREMITIES: No cyanosis, clubbing, or pedal edema. NEUROLOGICAL: Gross neurological examination did not reveal any focal deficits. SKIN: No rashes. no petechiae. Results CBC & Chem 7: 02/14/21 03:18 02/14/21 03:18 Labs: Abnormal Lab Results - Last 24 Hours (Table) 02/13/21 02/13/21 02/13/21 Range/Units 14:55 14:55 14:55 WBC 20.5 H (3.8-10.6) k/uL MCHC 30.9 L (31.0-37.0) g/dL RDW 17.3 H (11.5-15.5) % Neutrophils # (Manual) 10.20 H (1.3-7.7) k/uL Lymphocytes # (Manual) 9.84 H (1.0-4.8) k/uL Metamyelocytes # (Man) 0.21 H (0) k/uL PT 26.1 H (9.0-12.0) sec INR 2.7 H (<1.2) ABG pH (7.35-7.45) ABG pCO2 (35-45) mmHg ABG pO2 (83-108) mmHg ABG HCO3 (21-25) mmol/L ABG Total CO2 (19-24) mmol/L ABG O2 Saturation (94-97) % Sodium (137-145) mmol/L Potassium 2.8 L (3.5-5.1) mmol/L Carbon Dioxide 17 L (22-30) mmol/L BUN (7-17) mg/dL Glucose 265 H (74-99) mg/dL POC Glucose (mg/dL) (75-99) mg/dL Calcium (8.4-10.2) mg/dL AST 83 H (14-36) U/L ALT 36 H (4-34) U/L Troponin I (0.000-0.034) ng/mL Total Protein 6.2 L (6.3-8.2) g/dL Albumin 3.4 L (3.5-5.0) g/dL Urine Appearance (Clear) Ur Specific [place] (1.001-1.035) Urine Protein (Negative) Urine Glucose (UA) (Negative) Ur Leukocyte Esterase (Negative) Urine WBC (0-5) /hpf Amorphous Sediment (None) /hpf Urine Mucus (None) /hpf 02/13/21 02/13/21 02/13/21 Range/Units 14:58 16:16 17:01 WBC (3.8-10.6) k/uL MCHC (31.0-37.0) g/dL RDW (11.5-15.5) % Neutrophils # (Manual) (1.3-7.7) k/uL Lymphocytes # (Manual) (1.0-4.8) k/uL Metamyelocytes # (Man) (0) k/uL PT (9.0-12.0) sec INR (<1.2) ABG pH 7.26 L (7.35-7.45) ABG pCO2 47 H (35-45) mmHg ABG pO2 59 L* (83-108) mmHg ABG HCO3 (21-25) mmol/L ABG Total CO2 (19-24) mmol/L ABG O2 Saturation 87.5 L (94-97) % Sodium (137-145) mmol/L Potassium (3.5-5.1) mmol/L Carbon Dioxide (22-30) mmol/L BUN (7-17) mg/dL Glucose (74-99) mg/dL POC Glucose (mg/dL) 244 H 233 H (75-99) mg/dL Calcium (8.4-10.2) mg/dL AST (14-36) U/L ALT (4-34) U/L Troponin I (0.000-0.034) ng/mL Total Protein (6.3-8.2) g/dL Albumin (3.5-5.0) g/dL Urine Appearance (Clear) Ur Specific [place] (1.001-1.035) Urine Protein (Negative) Urine Glucose (UA) (Negative) Ur Leukocyte Esterase (Negative) Urine WBC (0-5) /hpf Amorphous Sediment (None) /hpf Urine Mucus (None) /hpf 02/13/21 02/13/21 02/14/21 Range/Units 18:08 20:31 00:21 WBC (3.8-10.6) k/uL MCHC (31.0-37.0) g/dL RDW (11.5-15.5) % Neutrophils # (Manual) (1.3-7.7) k/uL Lymphocytes # (Manual) (1.0-4.8) k/uL Metamyelocytes # (Man) (0) k/uL PT (9.0-12.0) sec INR (<1.2) ABG pH (7.35-7.45) ABG pCO2 (35-45) mmHg ABG pO2 (83-108) mmHg ABG HCO3 (21-25) mmol/L ABG Total CO2 (19-24) mmol/L ABG O2 Saturation (94-97) % Sodium (137-145) mmol/L Potassium (3.5-5.1) mmol/L Carbon Dioxide (22-30) mmol/L BUN (7-17) mg/dL Glucose (74-99) mg/dL POC Glucose (mg/dL) 261 H (75-99) mg/dL Calcium (8.4-10.2) mg/dL AST (14-36) U/L ALT (4-34) U/L Troponin I 9.470 H* 23.900 H* (0.000-0.034) ng/mL Total Protein (6.3-8.2) g/dL Albumin (3.5-5.0) g/dL Urine Appearance (Clear) Ur Specific [place] (1.001-1.035) Urine Protein (Negative) Urine Glucose (UA) (Negative) Ur Leukocyte Esterase (Negative) Urine WBC (0-5) /hpf Amorphous Sediment (None) /hpf Urine Mucus (None) /hpf 02/14/21 02/14/21 02/14/21 Range/Units 03:18 03:18 05:16 WBC 20.1 H (3.8-10.6) k/uL MCHC (31.0-37.0) g/dL RDW 15.8 H (11.5-15.5) % Neutrophils # (Manual) (1.3-7.7) k/uL Lymphocytes # (Manual) (1.0-4.8) k/uL Metamyelocytes # (Man) (0) k/uL PT (9.0-12.0) sec INR (<1.2) ABG pH (7.35-7.45) ABG pCO2 (35-45) mmHg ABG pO2 159 H (83-108) mmHg ABG HCO3 29 H (21-25) mmol/L ABG Total CO2 30 H (19-24) mmol/L ABG O2 Saturation 99.7 H (94-97) % Sodium 135 L (137-145) mmol/L Potassium (3.5-5.1) mmol/L Carbon Dioxide (22-30) mmol/L BUN 18 H (7-17) mg/dL Glucose 238 H (74-99) mg/dL POC Glucose (mg/dL) (75-99) mg/dL Calcium 8.0 L (8.4-10.2) mg/dL AST (14-36) U/L ALT (4-34) U/L Troponin I (0.000-0.034) ng/mL Total Protein (6.3-8.2) g/dL Albumin (3.5-5.0) g/dL Urine Appearance (Clear) Ur Specific [place] (1.001-1.035) Urine Protein (Negative) Urine Glucose (UA) (Negative) Ur Leukocyte Esterase (Negative) Urine WBC (0-5) /hpf Amorphous Sediment (None) /hpf Urine Mucus (None) /hpf 02/14/21 02/14/21 Range/Units 05:29 05:33 WBC (3.8-10.6) k/uL MCHC (31.0-37.0) g/dL RDW (11.5-15.5) % Neutrophils # (Manual) (1.3-7.7) k/uL Lymphocytes # (Manual) (1.0-4.8) k/uL Metamyelocytes # (Man) (0) k/uL PT (9.0-12.0) sec INR (<1.2) ABG pH (7.35-7.45) ABG pCO2 (35-45) mmHg ABG pO2 (83-108) mmHg ABG HCO3 (21-25) mmol/L ABG Total CO2 (19-24) mmol/L ABG O2 Saturation (94-97) % Sodium (137-145) mmol/L Potassium (3.5-5.1) mmol/L Carbon Dioxide (22-30) mmol/L BUN (7-17) mg/dL Glucose (74-99) mg/dL POC Glucose (mg/dL) 230 H (75-99) mg/dL Calcium (8.4-10.2) mg/dL AST (14-36) U/L ALT (4-34) U/L Troponin I (0.000-0.034) ng/mL Total Protein (6.3-8.2) g/dL Albumin (3.5-5.0) g/dL Urine Appearance Turbid H (Clear) Ur Specific [place] >1.050 H (1.001-1.035) Urine Protein 1+ H (Negative) Urine Glucose (UA) 2+ H (Negative) Ur Leukocyte Esterase Small H (Negative) Urine WBC 8 H (0-5) /hpf Amorphous Sediment Moderate H (None) /hpf Urine Mucus Occasional H (None) /hpf Microbiology - Last 24 Hours (Table) 02/13/21 15:15 Sputum Culture - Preliminary Sputum Thrombosis Risk Factor Assmnt - Choose All That Apply Any of the Below Risk Factors Present?: Yes Each Factor Represents 1 point: Obesity (BMI >25) Each Risk Factor Represents 2 Points: Age 61-74 years Other congenital or acquired thrombophilia - If yes, enter type in comment: No Thrombosis Risk Factor Assessment Total Risk Factor Score: 3 Thrombosis Risk Factor Assessment Level: Moderate Risk Assessment and Plan Assessment: Acute anteroseptal STEMI Cardiac arrest, status post ventricular fibrillation status post CPR and return of circulation Acute hypoxic respiratory failure needing intubation and mechanical ventilation Metabolic acidosis Possible pulmonary edema Leukocytosis, secondary to above Left fracture secondary to CPR Coagulopathy with INR 2.7 upon admission Hypertension Hypothyroidism Diabetes mellitus History of GERD History of coronary artery disease Morbidly obese. BMI 45.8 Plan: This is a 65 years old female who presents with STEMI and cardiac arrest status post CPR and intubation, underwent cardiac cath and PCI to LAD Continue with aspirin, brillinta , beta beni, statin and GONZALEZ inhibitor Continue with Intubation and mechanical ventilation with pulmonary/critical care team consult [employer] Truck [employer] on the case Labs and medication were reviewed.. Continue same treatment. Continue with symptomatic treatment. Resume home medication. Monitor lytes and vitals. DVT and GI prophylaxis. Further recommendations as per clinical course of the patient DVT prophylaxis: Aspirin and brillinta GI Prophylaxis: Pepcid PT/OT: Pending Prognosis is guarded
--- NOTE | 2021-02-14 11:31 | PN ---
PROGRESS NOTE Mrs. Hale is a 65-year-old female with known history of hypertension, hyperlipidemia and diabetes mellitus who presented with a cardiac arrest and acute anterior wall myocardial infarction, underwent CPR and cardioversion, was intubated, taken to the cardiac catheterization laboratory and was found to have a totally occluded proximal LAD and underwent stenting of that vessel. She remains intubated and sedated, in sinus mechanism, had no further arrhythmia. Her urine output is stable. Her oxygenation is stable. She has no episode of ventricular tachycardia nor atrial fibrillation. She is on no vasopressor. Her medications at this time include aspirin once a day, Lipitor 80 mg daily, insulin, lisinopril 5 mg twice a day, metoprolol tartrate 25 mg twice a day, Brilinta 90 mg twice a day and spironolactone 25 mg daily. PHYSICAL EXAMINATION: Blood pressure is running in the 110s to 120s with a heart rate in the 80s. Lungs clear anteriorly. Heart regular rate and rhythm.. S1, S2. No S3. No rub appreciated. Abdomen soft, obese. Positive bowel sounds. EXTREMITIES: No edema. Right radial pulse intact. LAB DATA: Lab data revealed a peak troponin of 23.9. Her BUN and creatinine are 18 and 0.72, potassium 4.7. Her pH is 7.42, pCO2 of 45, PO2 of 159. Hemoglobin 12.2, white blood cell count 20.1. Her magnesium is 1.8. Her EKG revealed QS in V1 to V2 and a small R- wave in V3. Her chest x-ray shows no infiltrate. IMPRESSION: 1. Status post acute anterior wall myocardial infarction complicated by ventricular fibrillation and PEA. Hemodynamically at this time, status post stenting of the LAD. 2. Respiratory failure. 3. Hypertension. 4. Hyperlipidemia. 5. Diabetes mellitus. 6. Obesity. RECOMMENDATIONS: Will continue present therapy. An echocardiogram with Doppler will be obtained today. Patient will be evaluated by Dr. Chávez for possible weaning and extubation if neurologically stable. Will follow her urine output and if needed she will receive diuretics. Depending on her progress, further recommendations will be made. MMODL / JOHNN: [id number] /
--- NOTE | 2021-02-14 12:00 | ECHOF ---
Referral Reason:mo MEASUREMENTS -------- HEIGHT: 172.7 cm WEIGHT: 136.5 kg BP: 119/55 IVSd: 1.3 cm (0.6 - 1.1) LVIDd: 4.2 cm (3.9 - 5.3) LVPWd: 1.6 cm (0.6 - 1.1) IVSs: 1.8 cm LVIDs: 3.0 cm LVPWs: 1.4 cm FINDINGS -------- Sinus rhythm. This was a technically difficult study with suboptimal views. Pt. on a vent. The left ventricular size is normal. There is mild concentric left ventricular hypertrophy. Overa ll left ventricular systolic function is low-normal with, an EF between 50 - 55 %. The RV was not well visualized. The left atrium was not well visualized. The right atrium was not well visualized. 3.0mg of Lumason was utilized for enhancement of images Interatrial and interventricular septum intact. The aortic valve was not well visualized. There is no evidence of aortic regurgitation. There is no evidence of aortic stenosis. The mitral valve was not well visualized. The tricuspid valve was not well visualized. The pulmonic valve was not well visualized. IVC Not well visulized. There is no pericardial effusion. CONCLUSIONS -------- 1. The left ventricular size is normal. 2. There is mild concentric left ventricular hypertrophy. 3. Overall left ventricular systolic function is low-normal with, an EF between 50 - 55 %. VEHICLE SAFETY INSPECTOR: Mackenzie Ruano GAUTAM
[2021-02-14 12:29] LABS: Glucose,Whole Blood 199 mg/dL (75-99)
[2021-02-14] MEDS: SODIUM CHLORIDE 0.9% 1,000 ML IV SCH (13:38)
--- NOTE | 2021-02-14 14:05 | P.CNNES ---
History of Present Illness Consult date: 02/14/21 Requesting physician: Krish Chávez Reason for Consult: anoxic brain injury History of Present Illness: Patient is a 65-year-old female came to the hospital by ambulance, yesterday at 2:48 PM with cardiac arrest. According to EMS flow sheet they were called at 2:24 PM for a patient had become unconscious/fainted. When EMS arrived at the scene at 2:28 PM, patient was laying supine on the living room floor with axonal respiration. Patient's family had mentioned that they heard a fall off the couch. Family stated when they came in the room, she was on the floor and not breathing. Family stated they started CPR at that time. Family stated patient was down for approximately 5 minutes prior to EMS arrival. Patient has no recent history of illness but was complaining of possible diabetic issues earlier in the day. Patient has no known cardiac issues. On examination patient was unresponsive with GCS of 3. Skin pale and cyanotic with mottling to the chest and abdomen. Pupils were 4 mm and nonreactive. Patient had no pulse and agonal respiration upon arrival. CPR was initiated. Patient was noted to have the fibrillation on the monitor. Patient was given A. fib at 200 J with success. Patient was given epinephrine 1 mg IV push 4 total doses. Patient had a moderate amount of frothy sputum/fluid coming from the mouth. Patient was intubated with a size 7.5 mm ET tube placed. Patient remained in V. fib throughout the CPR. Patient's blood sugar was 136. Patient arrived to the ER at 2:48 PM. Patient was noted to be in PEA. CPR was continued in the ER. Patient has ROSC at 2:52 PM. Overall downtime estimated to be around 32 minutes based upon above documentation. Chest x-ray showed status post intubation. There may be underlying pulmonary edema or pneumonia, a follow-up PA and lateral chest x-ray when stable. Her fractures noted on the left. EKG shows atrial fibrillation, rightward axis. 2- D echo revealed normal left ventricular size. Mild concentric LVH. Overall left-ventricular systolic function is low normal, with an EF between 50-55%. Blood test shows WBC 20.5 hemoglobin 12.4, platelet 221. PT is 26.1, INR 2.7 PTT 26.2. Sodium 137 potassium 2.8 normal renal functions, AST 83, ALT 36. Troponin is negative at baseline, but went up to 9.47 in 2 hours. Coronavirus PCR negative. Subsequent troponin went up to 23.9. UA shows small amount of leukocyte Estrace. Patient's home medications include Lipitor 40 mg, levothyroxine, aspirin 81 mg, Pepcid 40 mg twice a day, insulin, levothyroxine, metoprolol, clonidine. Patient has no previous history of atrial fibrillation. She does occasionally smoke marijuana. Patient's daughter has reported that patient 8 and ice cream sandwich earlier, she was complaining of her blood sugars may be elevated. She was complaining of indigestion. Her daughter mentioned that she went downstairs and all of a sudden heard a "fired", she heard her relatives screaming. Patient was found on the ground, unresponsive. EMS was called. Patient underwent cardiac catheterization, and was found to have totally occluded proximal LAD with reduction of stenosis post angioplasty from 100% to 0%. Chronically occluded right PLB with collaterals from the left system with moderate disease in the mid RCA. Patient started on aspirin, Brilinta, beta beni and GONZALEZ inhibitor's and statin. Per nursing report, when sedation was decreased, patient was agitated, thrashing all over, trying to crawl out of bed. The nurse tried her on Precedex, but she could not get her to calm down. Therefore Precedex was discontinued and resumed on propofol 50 g. No seizure-like activity has been witnessed. Review of Systems ROS unobtainable: due to endotracheal tube, due to mental status Past Medical History Past Medical History: Coronary Artery Disease (CAD), Diabetes Mellitus, GERD/Reflux, Hypertension, Thyroid Disorder History of Any Multi-Drug Resistant Organisms: None Reported Past Surgical History: Cholecystectomy Past Anesthesia/Blood Transfusion Reactions: No Reported Reaction Past Psychological History: No Psychological Hx Reported Smoking Status: Never smoker Past Alcohol Use History: Unable to Obtain Past Drug Use History: Unable to Obtain Medications and Allergies Home Medications Medication Instructions Recorded Confirmed Type Aspirin 81 tab PO DAILY 02/18/14 02/13/21 History Atorvastatin [Lipitor] 40 mg PO DAILY 02/18/14 02/13/21 History Levothyroxine Sodium [Synthroid] 200 mcg PO [id number] 02/18/14 02/13/21 History Famotidine [Pepcid] 40 mg PO BID 02/13/21 02/13/21 History Insulin NPH Hum/Reg Insulin Hm 70 unit SQ DAILY 02/13/21 02/13/21 History [Relion Novolin 70-30 Flexpen] Insulin NPH Hum/Reg Insulin Hm 90 unit SQ HS 02/13/21 02/13/21 History [Relion Novolin 70-30 Flexpen] Levothyroxine Sodium [Synthroid] 125 mcg PO CHEW 02/13/21 02/13/21 History Metoprolol Succinate (ER) [Toprol 100 mg PO DAILY 02/13/21 02/13/21 History XL] cloNIDine HCL 0.1 mg PO BID 02/13/21 02/13/21 History Allergies Allergy/AdvReac Type Severity Reaction Status Date / Time Penicillins AdvReac Rash/Hives Verified 02/13/21 17:35 Physical Examination - Vital Signs Vital Signs: Vital Signs Temp Pulse Resp BP Pulse Ox 02/14/21 11:33 72 20 02/14/21 11:19 71 28 H 02/14/21 11:00 87 10 L 86/45 99 02/14/21 10:00 90 117/87 97 02/14/21 09:00 99.1 F 85 31 H 114/63 99 02/14/21 08:24 86 21 02/14/21 08:01 87 29 H 02/14/21 08:00 99.3 F 87 30 H 112/59 99 02/14/21 07:00 82 25 H 119/55 98 02/14/21 06:00 86 25 H 124/63 98 02/14/21 05:00 86 28 H 118/59 99 02/14/21 04:05 85 02/14/21 04:00 97.5 F L 84 24 117/64 100 02/14/21 03:39 85 02/14/21 03:00 79 25 H 119/64 99 02/14/21 02:00 76 18 118/52 100 02/14/21 01:00 82 26 H 120/64 100 02/14/21 00:00 75 24 125/62 99 02/13/21 23:50 77 02/13/21 23:30 82 02/13/21 23:00 75 25 H 107/70 100 02/13/21 22:00 78 30 H 103/83 99 02/13/21 21:00 92 31 H 143/69 100 02/13/21 20:00 98.5 F 91 31 H 123/90 100 02/13/21 19:00 84 27 H 95/63 100 02/13/21 18:30 84 26 H 131/71 100 02/13/21 18:00 91 31 H 133/95 100 02/13/21 17:30 85 31 H 115/65 98 02/13/21 17:00 96 32 H 129/105 93 L 02/13/21 16:54 95 35 H 02/13/21 16:00 27 H 02/13/21 15:11 85 16 93/57 02/13/21 15:08 93 16 92/68 94 L 02/13/21 14:56 97.3 F L 79 16 118/71 96 Intake and Output 02/13/21 02/14/21 02/14/21 22:59 06:59 14:59 Intake Total 935.310 624.936 324.141 Output Total 435 370 160 Balance 500.310 254.936 164.141 Intake: IV 750 450 150 Potassium Chloride 20 meq 250 50 In Water For Injection 1 100ml.bag @ 50 mls/hr IVPB Q2HR ADRIANA Rx#: [id number] Sodium Chloride 0.9% 1, 250 400 150 000 ml @ 50 mls/hr IV . Q20H ADRIANA Rx#:[id number] Intake, IV Titration 185.310 174.936 174.141 Amount Dexmedetomidine/0.9% NaCl 19.295 (Pmx) 400 mcg In Empty Bag 1 bag @ 0.2 MCG/KG/HR 6.83 mls/hr IV .[id number] ADRIANA Rx#:[id number] propofoL 1,000 mg In 185.310 174.936 154.846 Empty Bag 1 bag @ Titrate IV .Q0M ADRIANA Rx#: [id number] Output: Urine 435 370 160 Other: Voiding Method Indwelling Catheter Indwelling Catheter Indwelling Catheter Weight 132.676 kg 136.6 kg Patient is an elderly female, who is sedated on propofol 50 g. Patient is sedated on propofol, unresponsive, GCS of 3. On cranial examination, pupils are round and reacting to light, visual davalos cannot be tested. Oculocephalics are absent. Corneals are very slightly present. Face cannot be assessed as patient is intubated. Lower cranial nerves cannot be assessed. On muscle strength testing, patient does not respond to painful stimuli. No seizure-like activity witnessed. Deep tendon reflexes are absent, plantars are flat. Sensory to touch or painful stimuli shows no response. Cerebellar function cannot be checked. Gait cannot be checked. On general examination, there is no carotid bruit or murmur, S1-S2 audible. Abdomen is soft nontender. Patient is mild peripheral edema. Results - Laboratory Findings CBC and BMP: 02/14/21 03:18 02/14/21 03:18 Abnormal Lab Findings: Abnormal Labs 02/13/21 02/13/21 02/13/21 14:55 14:55 14:55 WBC 20.5 H MCHC 30.9 L RDW 17.3 H Neutrophils # (Manual) 10.20 H Lymphocytes # (Manual) 9.84 H Metamyelocytes # (Man) 0.21 H PT 26.1 H INR 2.7 H ABG pH ABG pCO2 ABG pO2 ABG HCO3 ABG Total CO2 ABG O2 Saturation Sodium Potassium 2.8 L Carbon Dioxide 17 L BUN Glucose 265 H POC Glucose (mg/dL) Calcium AST 83 H ALT 36 H Troponin I Total Protein 6.2 L Albumin 3.4 L Urine Appearance Ur Specific Vass Urine Protein Urine Glucose (UA) Ur Leukocyte Esterase Urine WBC Amorphous Sediment Urine Mucus 02/13/21 02/13/21 02/13/21 14:58 16:16 17:01 WBC MCHC RDW Neutrophils # (Manual) Lymphocytes # (Manual) Metamyelocytes # (Man) PT INR ABG pH 7.26 L ABG pCO2 47 H ABG pO2 59 L* ABG HCO3 ABG Total CO2 ABG O2 Saturation 87.5 L Sodium Potassium Carbon Dioxide BUN Glucose POC Glucose (mg/dL) 244 H 233 H Calcium AST ALT Troponin I Total Protein Albumin Urine Appearance Ur Specific Vass Urine Protein Urine Glucose (UA) Ur Leukocyte Esterase Urine WBC Amorphous Sediment Urine Mucus 02/13/21 02/13/21 02/14/21 18:08 20:31 00:21 WBC MCHC RDW Neutrophils # (Manual) Lymphocytes # (Manual) Metamyelocytes # (Man) PT INR ABG pH ABG pCO2 ABG pO2 ABG HCO3 ABG Total CO2 ABG O2 Saturation Sodium Potassium Carbon Dioxide BUN Glucose POC Glucose (mg/dL) 261 H Calcium AST ALT Troponin I 9.470 H* 23.900 H* Total Protein Albumin Urine Appearance Ur Specific Vass Urine Protein Urine Glucose (UA) Ur Leukocyte Esterase Urine WBC Amorphous Sediment Urine Mucus 02/14/21 02/14/21 02/14/21 03:18 03:18 05:16 WBC 20.1 H MCHC RDW 15.8 H Neutrophils # (Manual) Lymphocytes # (Manual) Metamyelocytes # (Man) PT INR ABG pH ABG pCO2 ABG pO2 159 H ABG HCO3 29 H ABG Total CO2 30 H ABG O2 Saturation 99.7 H Sodium 135 L Potassium Carbon Dioxide BUN 18 H Glucose 238 H POC Glucose (mg/dL) Calcium 8.0 L AST ALT Troponin I Total Protein Albumin Urine Appearance Ur Specific Vass Urine Protein Urine Glucose (UA) Ur Leukocyte Esterase Urine WBC Amorphous Sediment Urine Mucus 02/14/21 02/14/21 02/14/21 05:29 05:33 12:28 WBC MCHC RDW Neutrophils # (Manual) Lymphocytes # (Manual) Metamyelocytes # (Man) PT INR ABG pH ABG pCO2 ABG pO2 ABG HCO3 ABG Total CO2 ABG O2 Saturation Sodium Potassium Carbon Dioxide BUN Glucose POC Glucose (mg/dL) 230 H 199 H Calcium AST ALT Troponin I Total Protein Albumin Urine Appearance Turbid H Ur Specific Vass >1.050 H Urine Protein 1+ H Urine Glucose (UA) 2+ H Ur Leukocyte Esterase Small H Urine WBC 8 H Amorphous Sediment Moderate H Urine Mucus Occasional H Assessment and Plan Assessment: * Status post cardiac arrest, with the downtime of 32 minutes. At present patient is sedated with propofol 50 g. Patient with sedation holiday becomes restless, agitated, moves all 4 extremities, but does not follow commands, as per nursing report. Rule out anoxic encephalopathy. Rule out other structural abnormalities. * Acute STEMI, * New onset atrial fibrillation. * Diabetes * Hypertension * CAD Plan: * Computed tomography scan of head, rule out CVA, ICB * EEG evaluate for underlying cerebral activity, rule out any seizure-like tendency. * Medical management as per IM and critical care * Cardiology also on board. * Continue close neuro checks. * Patient started on aspirin 81 mg and Brilinta, also on high dose statins Lipitor 80 mg. * Repeat PT and INR. Patient's INR was elevated 2.7 of unclear cause, as she is not on warfarin. * DVT prophylaxis with SCDs. * Neurology will follow.
[2021-02-14 14:51] LABS: Prothrombin Time 10.8 sec (9.0-12.0)
[2021-02-14 15:13] LABS: Amphetamine Screen,Urine Not Detected (NotDetected); Barbiturate Screen,Urine Not Detected (NotDetected); Benzodiazepines Screen,Urine Detected (NotDetected); Cocaine Screen,Urine Not Detected (NotDetected); Methadone Screen, Urine Not Detected (NotDetected); Opiate Screen,Urine Not Detected (NotDetected); Oxycodone Screen, Urine Not Detected (NotDetected); Phencyclidine Screen,Urine Not Detected (NotDetected); Tricyclic Antidepressant,Urine Not Detected (NotDetected); Urn Cannabinoid Scrn Detected (NotDetected)
--- NOTE | 2021-02-14 15:35 | CT ---
EXAMINATION TYPE: CT brain wo con DATE OF EXAM: 02/14/2021 COMPARISON: None HISTORY: Altered mental status. CT DLP: 1232.4 mGycm Automated exposure control for dose reduction was used. FINDINGS: Changes of chronic sinusitis. Orbits are symmetric. Low-attenuation in the white matter is nonspecifi c. Area of low-attenuation the right parietal lobe of indeterminate age. Abnormal soft tissue in the nasopharynx is noted could be postinflammatory. No acute hemorrhage or mass effect. Suggestion of an endotracheal tube. IMPRESSION: DEGENERATIVE AND NONSPECIFIC WHITE MATTER CHANGES ARE NONSPECIFIC. IF CONCERN FOR ACUTE ISCHEMIA DONTRELL ELATE WITH MRI WITH PARTICULAR ATTENTION TO THE AREA OF LOW ATTENUATION IN THE RIGHT PARIETAL LOBE TO EXCLUDE ACUTE ISCHEMIA.
[2021-02-14 17:33] LABS: Glucose,Whole Blood 178 mg/dL (75-99)
[2021-02-14] MEDS: ATORVASTATIN 80 MG TAB PO SCH (21:05)
[2021-02-14 23:12] LABS: Glucose,Whole Blood 152 mg/dL (75-99)
[2021-02-15] MEDS: IPRATROPIUM-ALBUTEROL 3 ML NEB INHALATION SCH ×6 (01:33→20:56)
[2021-02-15 04:42] LABS: HCT 36.8 % (34.0-46.0); HGB 11.6 gm/dL (11.4-16.0); Hypochromasia Slight; MCH 29.4 pg (25.0-35.0); MCHC 31.5 g/dL (31.0-37.0); MCV 93.3 fL (80.0-100.0); Mean Platelet Volume 7.1; Platelet Count 174 k/uL (150-450); RBC 3.95 m/uL (3.80-5.40); RDW 15.9 % (11.5-15.5); WBC 14.3 k/uL (3.8-10.6)
[2021-02-15 05:12] LABS: African American GFR (CKD) >90 (>60 ml/min/1.73 sqM); Anion Gap 7 mmol/L; Blood Urea Nitrogen 16 mg/dL (7-17); Calcium 8.3 mg/dL (8.4-10.2); Carbon Dioxide 27 mmol/L (22-30); Chloride 104 mmol/L (98-107); Glucose 206 mg/dL (74-99); Non-African American GFR(CKD) >90 (>60 ml/min/1.73 sqM); Potassium 4.2 mmol/L (3.5-5.1); Sodium 138 mmol/L (137-145)
[2021-02-15] MEDS: LEVOTHYROXINE 100 MCG TAB PO SCH (05:17)
[2021-02-15] MEDS: INSULIN ASPART (NovoLOG) 100 UNIT/ML VIAL SQ SCH ×3 (05:17→18:03)
[2021-02-15 06:04] LABS: Glucose,Whole Blood 234 mg/dL (75-99)
[2021-02-15 06:27] LABS: ABG Base Excess 7.2 mmol/L; ABG HCO3 32 mmol/L (21-25); ABG Oxygen Saturation 97.4 % (94-97); ABG PCO2 48 mmHg (35-45); ABG PH 7.43 (7.35-7.45); ABG PO2 86 mmHg (83-108); ABG TCO2 33 mmol/L (19-24); Allen Test Performed? Yes
--- NOTE | 2021-02-15 07:47 | XR ---
EXAMINATION TYPE: XR chest 1V portable DATE OF EXAM: 02/15/2021 COMPARISON: Chest x-ray 02/14/2021 HISTORY: Tube placement TECHNIQUE: Single frontal view of the chest is obtained. FINDINGS: Endotracheal tube and NG tube are stable. Pleural-parenchymal changes show a similar appea kenisha. There are overlying artifacts. Cardiac mediastinal sweat shows no interval change. Left-sided rib fractures have been previously documented. IMPRESSION: There is not a significant interval change.
[2021-02-15] MEDS: SODIUM CHLORIDE 0.9% 1,000 ML IV SCH (08:17)
[2021-02-15] MEDS: DEXMEDETOMIDINE/0.9% NACL(PMX) 400 MCG in EMPTY BAG 1 BAG IV SCH ×2 (08:18→13:16)
--- NOTE | 2021-02-15 10:05 | EEG ---
ELECTROENCEPHALOGRAM REPORT DATE OF SERVICE: 02/15/2021 PREAMBLE: This is a 65-year-old female with cardiac arrest. Patient is currently on ventilator in the ICU with sedation running at propofol 60 mcg. EEG FINDINGS: This is a 21-channel digital EEG recorded with video competent, utilizing 10/20 international system with referential and bipolar montages. The recording starts with the presence of diffuse moderate to high amplitude activity in mixed frequencies of delta and theta range. During the middle and later part of the recording, more developed and well regulated posterior-dominant 10 hertz alpha activity was seen that does not seem to be clearly reactive to eye opening or closing. Photic stimulation was not performed. No focal or generalized epileptiform activity was seen. Different stages of sleep were not seen. IMPRESSION: This is an abnormal EEG due to background slowing of mild to moderate degree. This is suggestive of generalized cerebral dysfunction as can be seen with toxic metabolic encephalopathy or from diffuse structural brain abnormality. No epileptiform activity was seen. MMODL / IJN: [id number] / MTDD
--- NOTE | 2021-02-15 10:19 | PN ---
PROGRESS NOTE Mrs. Hale is a 65-year-old female who presented with cardiac arrest, was found to have an acute [id number] anterior wall myocardial infarction, underwent stenting of her proximal LAD and mid LAD. She remains intubated and sedated. Yesterday she was moving all her extremities but would not follow commands. She was seen by the neurology service and underwent EEG this morning. She continues to be hemodynamically stable, in sinus mechanism. There is no evidence of recurrent ventricular tachycardia. She continues to be at this time on aspirin once a day, Lipitor 80 mg daily, Zestril 5 mg twice a day, metoprolol tartrate 25 mg twice a day, spironolactone 25 mg daily and Brilinta 90 mg twice a day. PHYSICAL EXAMINATION: Blood pressure is running in the 130s with a heart rate in the 90s. Afebrile. Lungs clear anteriorly. Intubated, sedated. Heart: Regular rate and rhythm. S1, S2. No S3. No rub or gallop. Abdomen soft, obese, non-tender. Extremities no edema. LAB DATA: Lab data revealed BUN and creatinine of 16 and 0.63, potassium 4.2, hemoglobin of 11.6. Her pH is 7.43, pCO2 of 48, PO2 of 86. IMPRESSION: 1. Status post cardiac arrest with ventricular tachycardia and CPR. 2. Status post anterior wall myocardial infarction and stenting of the proximal and mid LAD. 3. 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 4. History of hypertension. 5. Hyperlipidemia. 6. Diabetes mellitus. RECOMMENDATIONS: From the cardiac standpoint, will continue on the present regimen, follow her blood pressure. I will review the results for echocardiogram. We will await the input of the neurology service and the results of the EEG and depending on her progress, further recommendations will be made. MMODL / IJN: [id number] /
[2021-02-15] MEDS: ASPIRIN 81 MG PO SCH (10:21)
[2021-02-15] MEDS: SPIRONOLACTONE 25 MG TAB PO SCH (10:21)
[2021-02-15] MEDS: METOPROLOL TARTRATE 25 MG TAB PO SCH ×2 (10:21→21:01)
[2021-02-15] MEDS: lisinopriL 5 MG TAB PO SCH ×2 (10:21→21:00)
[2021-02-15] MEDS: TICAGRELOR 90 MG TAB PO SCH ×2 (10:21→21:00)
[2021-02-15] MEDS: CHLORHEXIDINE GLUCONATE 15 ML CUP MUCOUS MEM SCH ×2 (10:21→21:00)
--- NOTE | 2021-02-15 11:55 | P.PN ---
Subjective Progress Note Date: 02/15/21 Principal diagnosis: Acute cardiac arrest 65-year-old female with a history of diabetes, hypothyroidism, hyperlipidemia, hypertension, gastroesophageal reflux disease, and obesity, who was seen in the emergency room, on February 13. She apparently had a witnessed cardiac arrest in front of family members. EMS was called, and ACLS protocol was begun. The patient was noted to be in ventricular fibrillation. She apparently was intubated, and placed on the monitor and found to have ventricular fibrillation, and was defibrillated, a total of 5 times he was given 450 mg of amiodarone. She did apparently have spontaneous circulation briefly upon arrival, but apparently did develop PEA rhythm in the emergency room, and ACLS was continued. The patient was taken to the [facility], and found to have a complete occlusion of the LAD. 2 stents replaced, via the right radial approach. The patient came back to the intensive care unit on the ventilator. She is on the volume assist control mode, rate 18, tidal volumes 375, FiO2 100%, and PEEP of 10. Initial gases showed a pO2 of 59, pCO2 47, and a pH is 7.26. These blood gases were done on a rate of 14, and a PEEP of 5. Hence the increase in rate and PEEP. The patient is currently on Toprol fall at 25 mcg/kg/m, and saline at 50 mL an hour. I reviewed her medications at the bedside with the nurse, Rachael. The jac n is to keep her on the ventilator overnight, and work on getting her extubated in the morning. Because of a cardiac arrest, no history could be obtained. The medical history that I noted above, was gleaned from the medications that she takes. They included Requip, Glucophage, micardis HCT, metoprolol, Synthroid, insulin, famotidine, Lipitor, and aspirin. The patient is seen today 02/14/2021 in follow-up in the intensive care unit. She remains intubated, sedated and on the mechanical ventilator. Current settings are assist-control mode at a rate of 18, tidal volume 375, FiO2 40% and a PEEP of 10. Morning blood gases revealed a PaO2 of 159, pCO2 44, pH 7.4 to on 50% FiO2. She is sedated with propofol at 45 mcg/kg/m. 0.9 normal saying at 50 MLS per hour. Chest x-ray reveals good placement of the endotracheal tube and nasogastric tubes. There is no pneumothorax. Some basilar density obscures left hemidiaphragm. Improved aeration in the right lung. Some bibasilar atelectasis. Left-sided rib fractures. Sputum culture pending. White count 20.1. Hemoglobin 12.2. Platelets 205. Sodium 135. Potassium 4.7. Creatinine 0.72. Glucose 238. Urine culture pending. She's been initiated and DuoNeb inhalations. Remains on Brilinta and aspirin. On 02/15/2021 patient seen in follow-up in intensive care unit, she remains intubated, and sedated on mechanical ventilator with assist control mode of ventilation with a rate of 18, tidal, 375, PEEP of 10, and FiO2 of 40%. This morning's blood gas shows pO2 of 86, pCO2 48, and pH of 7.43. 0.9 normal saline entered a 50 ML per hour, Diprivan is at 20 mics per kilo per minute. No tube feedings. She is in sinus mechanism with a rate of 122. Her sedation is being weaned, she failed a sedation holiday yesterday. Right now she has her eyes open, she appears to be slightly tracking with her gaze, however she is not following commands, and she is becoming restless and agitated. She is not on any vasopressor support, no arrhythmias overnight, no acute events. Chest x-ray today shows basilar density at the left hemidiaphragm likely related to atelectasis. Left-sided rib fractures, stable exam. Brain CT from yesterday shows degenerative and nonspecific white matter changes, and MRI was recommended to exclude acute ischemia. No acute hemorrhage or mass effect. Neurology is following, EEG has been completed showing background slowing of mild to moderate degree suggestive of generalized cerebral dysfunction as can be seen with toxic metabolic encephalopathy, no epileptiform activity. Today's labs have been reviewed with blood cell count is improving and is down to 14.3, hemoglobin is 11.6, electrolytes and renal profile are within normal limits, urinalysis showed turbid urine, with 1+ protein, 2+ glucose, small leuks, but no definite sign of infection, urine drug screen showed benzodiazepines and marijuana. COVID-19 PCR was negative. Sputum culture has been sent showing no PMNs, moderate gram-posi tive cocci.. Objective - Vital Signs Vital signs: Vital Signs Temp 98 F 02/15/21 04:00 Pulse 79 02/15/21 11:20 Resp 27 H 02/15/21 07:00 BP 131/75 02/15/21 07:00 Pulse Ox 98 02/15/21 07:00 Intake & Output 02/14/21 02/15/21 02/15/21 18:59 06:59 18:59 Intake Total 749.355 3357.207 260.75 Output Total 675 660 180 Balance 293.659 391.207 80.75 Weight 136.6 kg 135 kg 135 kg Intake: IV 600 600 200 Sodium Chloride 0.9% 1, 600 600 200 000 ml @ 50 mls/hr IV . Q20H [facility] Rx#:[id number] Intake, IV Titration 368.659 451.207 60.75 Amount Dexmedetomidine/0.9% NaCl 19.295 (Pmx) 400 mcg In Empty Bag 1 bag @ 0.2 MCG/KG/HR 6.83 mls/hr IV .[id number] [facility] Rx#:[id number] propofoL 1,000 mg In 349.364 451.207 60.75 Empty Bag 1 bag @ Titrate IV .Q0M [facility] Rx#: [id number] Output: Urine 675 660 180 Other: Voiding Method Indwelling Catheter Indwelling Catheter - Exam GENERAL EXAM: 65-year-old white female patient on assist-control mode of ventilation, slightly restless, her sedation is being weaned, patient opens eyes, appears to be tracking with her eyes but does not follow commands comfortable in no apparent distress. HEAD: Normocephalic/atraumatic. EYES: Normal reaction of pupils, equal size. Conjunctiva pink, sclera white. NOSE: Clear with pink turbinates. THROAT: No erythema or exudates. NECK: No masses, no JVD, no thyroid enlargement, no adenopathy. CHEST: No chest wall deformity. Symmetrical expansion. LUNGS: Equal air entry with no crackles, wheeze, rhonchi or dullness. CVS: Regular rate and rhythm, normal S1 and S2, no gallops, no murmurs, no rubs ABDOMEN: Soft, nontender. No hepatosplenomegaly, normal bowel sounds, no guarding or rigidity. EXTREMITIES: No clubbing, no edema, no cyanosis, 2+ pulses and upper and lower extremities. MUSCULOSKELETAL: Muscle strength and tone normal. SPINE: No scoliosis or deformity SKIN: No rashes CENTRAL NERVOUS SYSTEM: Sedated, restless intubated No focal deficits, tone is normal in all 4 extremities. - Labs CBC & Chem 7: 02/15/21 04:19 02/15/21 04:19 Labs: Abnormal Lab Results - Last 24 Hours (Table) 02/14/21 02/14/21 02/14/21 Range/Units 03:18 12:28 14:32 WBC (3.8-10.6) k/uL RDW (11.5-15.5) % ABG pCO2 (35-45) mmHg ABG HCO3 (21-25) mmol/L ABG Total CO2 (19-24) mmol/L ABG O2 Saturation (94-97) % Glucose (74-99) mg/dL POC Glucose (mg/dL) 199 H (75-99) mg/dL Hemoglobin A1c 9.1 H (4.0-6.0) % Calcium (8.4-10.2) mg/dL U Benzodiazepines Scrn Detected H (NotDetected) U Marijuana (THC) Screen Detected H (NotDetected) 02/14/21 02/14/21 02/15/21 Range/Units 17:32 23:10 04:19 WBC 14.3 H (3.8-10.6) k/uL RDW 15.9 H (11.5-15.5) % ABG pCO2 (35-45) mmHg ABG HCO3 (21-25) mmol/L ABG Total CO2 (19-24) mmol/L ABG O2 Saturation (94-97) % Glucose (74-99) mg/dL POC Glucose (mg/dL) 178 H 152 H (75-99) mg/dL Hemoglobin A1c (4.0-6.0) % Calcium (8.4-10.2) mg/dL U Benzodiazepines Scrn (NotDetected) U Marijuana (THC) Screen (NotDetected) 02/15/21 02/15/21 02/15/21 Range/Units 04:19 06:03 06:21 WBC (3.8-10.6) k/uL RDW (11.5-15.5) % ABG pCO2 48 H (35-45) mmHg ABG HCO3 32 H (21-25) mmol/L ABG Total CO2 33 H (19-24) mmol/L ABG O2 Saturation 97.4 H (94-97) % Glucose 206 H (74-99) mg/dL POC Glucose (mg/dL) 234 H (75-99) mg/dL Hemoglobin A1c (4.0-6.0) % Calcium 8.3 L (8.4-10.2) mg/dL U Benzodiazepines Scrn (NotDetected) U Marijuana (THC) Screen (NotDetected) Microbiology - Last 24 Hours (Table) 02/13/21 15:15 Gram Stain - Preliminary Sputum Sputum Culture - Preliminary Assessment and Plan Plan: Assessment: #1. Acute hypoxic respiratory failure related to acute cardiac arrest, patient was intubated out in the field on 02/13/2021, and remains intubated currently #2. V. fib and PEA out of hospital cardiopulmonary arrest, with 30 pulmonary resuscitation, and return of spontaneous circulation. Patient required defibrillation 5 times, and out in the field intubation #3. Acute anterior wall myocardial infarction, status post stenting of the LAD on 02/13/2021 #4. Altered mental status, likely related to hypoxic encephalopathy, neurology is following #5. History of diabetes mellitus type 2 #6. Hypertension #7. Hyperlipidemia #8. Hypothyroidism #9. Morbid obesity with BMI of 45.3 kg/m #10. Never smoker #11. History of coronary artery disease #12. New onset age of fibrillation #13. History of marijuana smoking Plan: Proceed with daily interruption of sedation If patient tolerates sedation holiday may proceed with pressure support of 5 and CPAP 5 trial However she is a bit restless, not following commands Neurology recs We can stop the Diprivan and start the patient on Precedex for agitation We'll try to get the patient extubated today If not extubated today will need to start nutritional support Consult dietary for tube feeding recommendation Today's labs and chest x-rays reviewed Echocardiogram reviewed Antiplatelet therapy, high intensity statins, beta beni per cardiology recommendations We'll continue to follow her clinical course I performed a history & physical examination of the patient and discussed their management with my nurse practitioner, Ana Tran. I reviewed the nurse practitioner's note and agree with the documented findings and plan of care. Lung sounds are positive for dim breath sounds throughout the lung davalos. The findings and the impression was discussed with the patient. I attest to the documentation by the nurse practitioner. Time with Patient: Greater than 30
[2021-02-15 12:32] LABS: Glucose,Whole Blood 328 mg/dL (75-99)
[2021-02-15 17:22] LABS: Glucose,Whole Blood 322 mg/dL (75-99)
[2021-02-15] MEDS: ATORVASTATIN 80 MG TAB PO SCH (21:00)
[2021-02-15 21:57] LABS: Chol/HDL Ratio 3.47 Ratio
--- NOTE | 2021-02-15 22:33 | P.PN ---
Subjective This is a pleasant 65 years old female with past medical history of Coronary Artery Disease , Diabetes Mellitus, GERD, Hypertension, hypothyroidism. She is a patient of Dr. Brambila Patient presents with unresponsiveness and and cardiac arrest. CPR was ongoing through EMS, patient was found in ventricular fibrillation per EMS, Pt was given 5 epi, 5 shocks and 450mg of Amniodarone. Pt did have ROSC for a few minutes but when arriving to ER no pulse present. In the emergency room patient got intubated and placed on mechanical ventilation. Initial vitals showed temperature 97.3, heart rate 79, breathing rate 16, blood pressure 118/71 and 92/62 and she was saturating 96% on mechanical ventilation Labs were showing leukocytosis of 20.5 K. INR 2.7 PH 7.2, pCO2 47 and pO2 59. Sodium 137, low potassium 2.8, normal creatinine 0.9. Glucose elevated to 65. Liver enzymes slightly elevated with AST 83 and ALT 36. Trending up troponin 0.02, 9.4 and 23.9. Coronavirus chest x-ray: Status post intubation. There may be underlying pulmonary edema or pneumonia. Repeat fracture noted on the left Nondetected. EKG showing ST elevation in anterior septal leads V1 to V4 Patient was taken to emergent cardiac cath and she underwent cardiac cathete rization with PCI to the totally occluded proximal LAD. After the procedure patient was placed on aspirin, Brillinta ,and beta beni, GONZALEZ inhibitor and statin Today patient is still intubated in the ICU, and on mechanical ventilation. She has PEEP of 10, FiO2 of 40%, tidal volume 375, she has sinus rhythm at 90 bpm, she has a Mcneil and OG tube. She has normal saline running at 50 mL per hour 02/15/2021 ICU intubated and sedated with pulmonary/critical care team followed closely Patient failed sedation trial yesterday and today. Neurology team on the case PEG showing no epileptiform discharge Ejection fraction is 50-55% Chest x-ray no change from yesterday Labs reviewed, WBC down to 14 K, INR down to normal at 1.5 Patient remains on aspirin and Brilinta Continue with gentle hydration, lisinopril, metoprolol and Aldactone with cardiology and nephrology followed the patient closely Objective - Vital Signs Vital signs: Vital Signs Temp 98 F 02/15/21 04:00 Pulse 81 02/15/21 11:30 Resp 27 H 02/15/21 07:00 BP 131/75 02/15/21 07:00 Pulse Ox 98 02/15/21 07:00 Intake & Output 02/14/21 02/15/21 02/15/21 18:59 06:59 18:59 Intake Total 252.517 7797.207 260.75 Output Total 675 660 180 Balance 293.659 391.207 80.75 Weight 136.6 kg 135 kg 135 kg Intake: IV 600 600 200 Sodium Chloride 0.9% 1, 600 600 200 000 ml @ 50 mls/hr IV . Q20H [facility] Rx#:[id number] Intake, IV Titration 368.659 451.207 60.75 Amount Dexmedetomidine/0.9% NaCl 19.295 (Pmx) 400 mcg In Empty Bag 1 bag @ 0.2 MCG/KG/HR 6.83 mls/hr IV .[id number] [facility] Rx#:[id number] propofoL 1,000 mg In 349.364 451.207 60.75 Empty Bag 1 bag @ Titrate IV .Q0M [facility] Rx#: [id number] Output: Urine 675 660 180 Other: Voiding Method Indwelling Catheter Indwelling Catheter - Exam -GENERAL: The patient is sedated and intubated, not in any acute distress. morbidly obese HEENT: Pupils are round and equally reacting to light. EOMI. No scleral icterus. No conjunctival pallor. Normocephalic, atraumatic. No pharyngeal erythema. No thyromegaly. CARDIOVASCULAR: S1 and S2 present. No murmurs, rubs, or gallops. PULMONARY: Chest is clear to auscultation, no wheezing. ABDOMEN: Soft, nontender, nondistended, normoactive bowel sounds. No palpable organomegaly. MUSCULOSKELETAL: No joint swelling or deformity. EXTREMITIES: No cyanosis, clubbing, or pedal edema. NEUROLOGICAL: Gross neurological examination did not reveal any focal deficits. SKIN: No rashes. no petechiae. - Labs CBC & Chem 7: 02/15/21 04:19 02/15/21 04:19 Labs: Abnormal Lab Results - Last 24 Hours (Table) 02/14/21 02/14/21 02/14/21 Range/Units 03:18 12:28 14:32 WBC (3.8-10.6) k/uL RDW (11.5-15.5) % ABG pCO2 (35-45) mmHg ABG HCO3 (21-25) mmol/L ABG Total CO2 (19-24) mmol/L ABG O2 Saturation (94-97) % Glucose (74-99) mg/dL POC Glucose (mg/dL) 199 H (75-99) mg/dL Hemoglobin A1c 9.1 H (4.0-6.0) % Calcium (8.4-10.2) mg/dL U Benzodiazepines Scrn Detected H (NotDetected) U Marijuana (THC) Screen Detected H (NotDetected) 02/14/21 02/14/21 02/15/21 Range/Units 17:32 23:10 04:19 WBC 14.3 H (3.8-10.6) k/uL RDW 15.9 H (11.5-15.5) % ABG pCO2 (35-45) mmHg ABG HCO3 (21-25) mmol/L ABG Total CO2 (19-24) mmol/L ABG O2 Saturation (94-97) % Glucose (74-99) mg/dL POC Glucose (mg/dL) 178 H 152 H (75-99) mg/dL Hemoglobin A1c (4.0-6.0) % Calcium (8.4-10.2) mg/dL U Benzodiazepines Scrn (NotDetected) U Marijuana (THC) Screen (NotDetected) 02/15/21 02/15/21 02/15/21 Range/Units 04:19 06:03 06:21 WBC (3.8-10.6) k/uL RDW (11.5-15.5) % ABG pCO2 48 H (35-45) mmHg ABG HCO3 32 H (21-25) mmol/L ABG Total CO2 33 H (19-24) mmol/L ABG O2 Saturation 97.4 H (94-97) % Glucose 206 H (74-99) mg/dL POC Glucose (mg/dL) 234 H (75-99) mg/dL Hemoglobin A1c (4.0-6.0) % Calcium 8.3 L (8.4-10.2) mg/dL U Benzodiazepines Scrn (NotDetected) U Marijuana (THC) Screen (NotDetected) Microbiology - Last 24 Hours (Table) 02/13/21 15:15 Gram Stain - Preliminary Sputum Sputum Culture - Preliminary Assessment and Plan Assessment: Acute anteroseptal STEMI Cardiac arrest, status post ventricular fibrillation status post CPR and return of circulation Acute hypoxic respiratory failure needing intubation and mechanical ventilation Metabolic acidosis Possible pulmonary edema Leukocytosis, secondary to above Left fracture secondary to CPR Coagulopathy with INR 2.7 upon admission Hypertension Hypothyroidism Diabetes mellitus History of GERD History of coronary artery disease Morbidly obese. BMI 45.8 Plan: This is a 65 years old female who presents with STEMI and cardiac arrest status post CPR and intubation, underwent cardiac cath and PCI to LAD Continue with aspirin, brillinta , beta beni, statin and GONZALEZ inhibitor Continue with Intubation and mechanical ventilation with pulmonary/critical care team consult [facility] on the case Neurologist consulted Labs and medication were reviewed.. Continue same treatment. Continue with symptomatic treatment. Resume home medication. Monitor lytes and vitals. DVT and GI prophylaxis. Further recommendations as per clinical course of the patient DVT prophylaxis: Aspirin and brillinta GI Prophylaxis: Pepcid PT/OT: Pending Prognosis is guarded
[2021-02-15 23:51] LABS: Glucose,Whole Blood 285 mg/dL (75-99)
[2021-02-16] MEDS: IPRATROPIUM-ALBUTEROL 3 ML NEB INHALATION SCH ×7 (00:02→19:19)
[2021-02-16] MEDS: INSULIN ASPART (NovoLOG) 100 UNIT/ML VIAL SQ SCH ×5 (00:13→23:45)
[2021-02-16] MEDS: DEXMEDETOMIDINE/0.9% NACL(PMX) 400 MCG in EMPTY BAG 1 BAG IV SCH ×5 (03:52→23:28)
[2021-02-16] MEDS: SODIUM CHLORIDE 0.9% 1,000 ML IV SCH ×2 (03:52→23:47)
[2021-02-16 04:25] LABS: Basophils # (A) 0.1 k/uL (0-0.2); Basophils % (A) 0 %; Eosinophils # (A) 0.1 k/uL (0-0.7); Eosinophils % (A) 1 %; HCT 35.6 % (34.0-46.0); HGB 11.3 gm/dL (11.4-16.0); Hypochromasia Slight; Lymphocytes # (A) 1.2 k/uL (1.0-4.8); Lymphocytes % (A) 8 %; MCH 29.2 pg (25.0-35.0); MCHC 31.8 g/dL (31.0-37.0); MCV 91.8 fL (80.0-100.0); Mean Platelet Volume 8.5; Monocytes # (A) 1.4 k/uL (0-1.0); Monocytes % (A) 9 %; Neutrophils # (A) 12.9 k/uL (1.3-7.7); Neutrophils % (A) 82 %; Platelet Count 171 k/uL (150-450); RBC 3.88 m/uL (3.80-5.40); RDW 15.8 % (11.5-15.5); WBC 15.8 k/uL (3.8-10.6)
[2021-02-16 05:04] LABS: ALT 27 U/L (4-34); AST 28 U/L (14-36); African American GFR (CKD) >90 (>60 ml/min/1.73 sqM); Albumin 2.6 g/dL (3.5-5.0); Alkaline Phosphatase 73 U/L (38-126); Anion Gap 6 mmol/L; Blood Urea Nitrogen 16 mg/dL (7-17); Calcium 7.6 mg/dL (8.4-10.2); Carbon Dioxide 28 mmol/L (22-30); Chloride 101 mmol/L (98-107); Glucose 263 mg/dL (74-99); Non-African American GFR(CKD) >90 (>60 ml/min/1.73 sqM); Potassium 3.5 mmol/L (3.5-5.1); Sodium 135 mmol/L (137-145); Total Bilirubin 0.4 mg/dL (0.2-1.3); Total Protein 5.2 g/dL (6.3-8.2)
[2021-02-16] MEDS ORDERED: Potassium Replacement Protocol 1 EACH MISC MISCELLANE PRN (05:23)
[2021-02-16 05:45] LABS: Glucose,Whole Blood 338 mg/dL (75-99)
[2021-02-16] MEDS: LEVOTHYROXINE 100 MCG TAB PO SCH (05:56)
[2021-02-16] MEDS ORDERED: POTASSIUM CHLORIDE ER 20 MEQ TAB.ER PO SCH (06:00)
[2021-02-16] MEDS: POTASSIUM BICARB-CITRIC ACID 25 MEQ TABLET.EFF PO SCH ×2 (06:23→07:55)
[2021-02-16] MEDS: TICAGRELOR 90 MG TAB PO SCH ×2 (07:55→21:48)
[2021-02-16] MEDS: CHLORHEXIDINE GLUCONATE 15 ML CUP MUCOUS MEM SCH (07:55)
[2021-02-16] MEDS: METOPROLOL TARTRATE 25 MG TAB PO SCH (07:55)
[2021-02-16] MEDS: SPIRONOLACTONE 25 MG TAB PO SCH (07:55)
[2021-02-16] MEDS: lisinopriL 5 MG TAB PO SCH ×2 (07:55→21:47)
[2021-02-16] MEDS: ASPIRIN 81 MG PO SCH (07:55)
[2021-02-16 08:04] LABS: ABG Base Excess 9.4 mmol/L; ABG HCO3 33 mmol/L (21-25); ABG Oxygen Saturation 97.5 % (94-97); ABG PCO2 45 mmHg (35-45); ABG PH 7.48 (7.35-7.45); ABG PO2 83 mmHg (83-108); ABG TCO2 34 mmol/L (19-24); Allen Test Performed? Yes
--- NOTE | 2021-02-16 09:18 | XR ---
EXAMINATION TYPE: XR chest 1V portable DATE OF EXAM: 02/16/2021 Comparison: 02/15/2021 Clinical History: 65-year-old female Tube placement Findings: ET tube is satisfactory. NG tube courses below the diaphragm. Heart borderline in size. Slightly low lung volumes. Perihilar opacities may be slightly increased. Small left pleural effusion and retrocar diac opacity persists and Impression: 1. Perihilar opacities may be slightly increased. Correlate for possible mild pulmonary vascular sae estion. 2. Continued small left pleural effusion with atelectasis versus consolidation in the retrocardiac re gion.
[2021-02-16] MEDS: METOPROLOL TARTRATE 50 MG TAB PO SCH ×2 (09:47→21:47)
--- NOTE | 2021-02-16 10:06 | P.PN ---
Subjective Progress Note Date: 02/16/21 Principal diagnosis: Acute cardiac arrest 65-year-old female with a history of diabetes, hypothyroidism, hyperlipidemia, hypertension, gastroesophageal reflux disease, and obesity, who was seen in the emergency room, on February 13. She apparently had a witnessed cardiac arrest in front of family members. EMS was called, and ACLS protocol was begun. The patient was noted to be in ventricular fibrillation. She apparently was intubated, and placed on the monitor and found to have ventricular fibrillation, and was defibrillated, a total of 5 times he was given 450 mg of amiodarone. She did apparently have spontaneous circulation briefly upon arrival, but apparently did develop PEA rhythm in the emergency room, and ACLS was continued. The patient was taken to the [facility], and found to have a complete occlusion of the LAD. 2 stents replaced, via the right radial approach. The patient came back to the intensive care unit on the ventilator. She is on the volume assist control mode, rate 18, tidal volumes 375, FiO2 100%, and PEEP of 10. Initial gases showed a pO2 of 59, pCO2 47, and a pH is 7.26. These blood gases were done on a rate of 14, and a PEEP of 5. Hence the increase in rate and PEEP. The patient is currently on Toprol fall at 25 mcg/kg/m, and saline at 50 mL an hour. I reviewed her medications at the bedside with the nurse, Rachael. The jac n is to keep her on the ventilator overnight, and work on getting her extubated in the morning. Because of a cardiac arrest, no history could be obtained. The medical history that I noted above, was gleaned from the medications that she takes. They included Requip, Glucophage, micardis HCT, metoprolol, Synthroid, insulin, famotidine, Lipitor, and aspirin. The patient is seen today 02/14/2021 in follow-up in the intensive care unit. She remains intubated, sedated and on the mechanical ventilator. Current settings are assist-control mode at a rate of 18, tidal volume 375, FiO2 40% and a PEEP of 10. Morning blood gases revealed a PaO2 of 159, pCO2 44, pH 7.4 to on 50% FiO2. She is sedated with propofol at 45 mcg/kg/m. 0.9 normal saying at 50 MLS per hour. Chest x-ray reveals good placement of the endotracheal tube and nasogastric tubes. There is no pneumothorax. Some basilar density obscures left hemidiaphragm. Improved aeration in the right lung. Some bibasilar atelectasis. Left-sided rib fractures. Sputum culture pending. White count 20.1. Hemoglobin 12.2. Platelets 205. Sodium 135. Potassium 4.7. Creatinine 0.72. Glucose 238. Urine culture pending. She's been initiated and DuoNeb inhalations. Remains on Brilinta and aspirin. On 02/15/2021 patient seen in follow-up in intensive care unit, she remains intubated, and sedated on mechanical ventilator with assist control mode of ventilation with a rate of 18, tidal, 375, PEEP of 10, and FiO2 of 40%. This morning's blood gas shows pO2 of 86, pCO2 48, and pH of 7.43. 0.9 normal saline entered a 50 ML per hour, Diprivan is at 20 mics per kilo per minute. No tube feedings. She is in sinus mechanism with a rate of 122. Her sedation is being weaned, she failed a sedation holiday yesterday. Right now she has her eyes open, she appears to be slightly tracking with her gaze, however she is not following commands, and she is becoming restless and agitated. She is not on any vasopressor support, no arrhythmias overnight, no acute events. Chest x-ray today shows basilar density at the left hemidiaphragm likely related to atelectasis. Left-sided rib fractures, stable exam. Brain CT from yesterday shows degenerative and nonspecific white matter changes, and MRI was recommended to exclude acute ischemia. No acute hemorrhage or mass effect. Neurology is following, EEG has been completed showing background slowing of mild to moderate degree suggestive of generalized cerebral dysfunction as can be seen with toxic metabolic encephalopathy, no epileptiform activity. Today's labs have been reviewed with blood cell count is improving and is down to 14.3, hemoglobin is 11.6, electrolytes and renal profile are within normal limits, urinalysis showed turbid urine, with 1+ protein, 2+ glucose, small leuks, but no definite sign of infection, urine drug screen showed benzodiazepines and marijuana. COVID-19 PCR was negative. Sputum culture has been sent showing no PMNs, moderate gram-posi tive cocci On 02/16/2021 patient seen in follow-up in the intensive care unit, she remains intubated, sedated on assist control mode of ventilation with a rate of 18, tidal vital 375, FiO2 40% and PEEP of 10. Her peak air pressures 27, and her static pressure is 17. Today's chest x-ray shows perihilar opacities with possible slight increase, and possible mild pulmonary vascular congestion. The re is a small left pleural effusion with atelectasis in the retrocardiac region. Her EEG showed background slowing of mild to moderate degree, and generalized cerebral dysfunction as can be seen with toxic metabolic encephalopathy, no epileptiform activity. Brain CT showed degenerative nonspecific white matter changes. Blood gas today shows pO2 of 83, pCO2 45, and pH of 7.48. Her white blood cell count is improving, is down to 15.8, hemoglobin is 11.3, sodium is 135, the rest of electrolytes and renal profile are unremarkable. Patient is currently on 0.0 cm with a 50 ML per hour and debridement is a 40 mics per kilo per minute. She is in sinus mechanism, with a rate of 12. Yesterday patient tolerated sedation holiday, and she tolerated a brief CPAP trial, however weaning parameters were suboptimal, and patient was not ready to extubate and she was placed on assist-control mode of ventilation and received a day. She's had no acute events overnight. She is having some colored secretions suctioned out of her ET tube. She is tolerating her tube feedings, she is on vital 1.2 at a rate of 28. Objective - Vital Signs Vital signs: Vital Signs Temp 100.3 F H 02/16/21 08:00 Pulse 112 H 02/16/21 08:00 Resp 31 H 02/16/21 08:00 BP 151/71 02/16/21 08:00 Pulse Ox 95 02/16/21 08:00 Intake & Output 02/15/21 02/16/21 02/16/21 18:59 06:59 18:59 Intake Total 496.871 3109.000 275.20 Output Total 675 600 30 Balance 268.493 747.000 245.20 Weight 135 kg 129.3 kg Intake: IV 600 600 50 Sodium Chloride 0.9% 1, 600 600 50 000 ml @ 50 mls/hr IV . Q20H [facility] Rx#:[id number] Intake, IV Titration 315.493 300.000 197.20 Amount Dexmedetomidine/0.9% NaCl 25.043 0 (Pmx) 400 mcg In Empty Bag 1 bag @ 0.2 MCG/KG/HR 6.83 mls/hr IV .[id number] [facility] Rx#:[id number] propofoL 1,000 mg In 290.45 300.000 197.20 Empty Bag 1 bag @ Titrate IV .Q0M [facility] Rx#: [id number] Tube Feeding 28 327 28 Other 120 Output: Urine 675 600 30 Other: Voiding Method Indwelling Catheter Indwelling Catheter Indwelling Catheter - Exam GENERAL EXAM: 65-year-old white female patient on assist-control mode of ventilation, slightly restless, her sedation is being weaned, patient opens eyes, appears to be tracking with her eyes but does not follow commands comfo rtable in no apparent distress. HEAD: Normocephalic/atraumatic. EYES: Normal reaction of pupils, equal size. Conjunctiva pink, sclera white. NOSE: Clear with pink turbinates. THROAT: No erythema or exudates. NECK: No masses, no JVD, no thyroid enlargement, no adenopathy. CHEST: No chest wall deformity. Symmetrical expansion. LUNGS: Equal air entry with no crackles, wheeze, rhonchi or dullness. CVS: Regular rate and rhythm, normal S1 and S2, no gallops, no murmurs, no rubs ABDOMEN: Soft, nontender. No hepatosplenomegaly, normal bowel sounds, no guarding or rigidity. EXTREMITIES: No clubbing, no edema, no cyanosis, 2+ pulses and upper and lower extremities. MUSCULOSKELETAL: Muscle strength and tone normal. SPINE: No scoliosis or deformity SKIN: No rashes CENTRAL NERVOUS SYSTEM: Sedated, restless intubated No focal deficits, tone is normal in all 4 extremities. - Labs CBC & Chem 7: 02/16/21 03:21 02/16/21 04:27 Labs: Abnormal Lab Results - Last 24 Hours (Table) 02/15/21 02/15/21 02/15/21 Range/Units 04:19 12:30 17:21 WBC (3.8-10.6) k/uL Hgb (11.4-16.0) gm/dL RDW (11.5-15.5) % Neutrophils # (1.3-7.7) k/uL Monocytes # (0-1.0) k/uL ABG pH (7.35-7.45) ABG HCO3 (21-25) mmol/L ABG Total CO2 (19-24) mmol/L ABG O2 Saturation (94-97) % Sodium (137-145) mmol/L Glucose (74-99) mg/dL POC Glucose (mg/dL) 328 H 322 H (75-99) mg/dL Calcium (8.4-10.2) mg/dL Total Protein (6.3-8.2) g/dL Albumin (3.5-5.0) g/dL Triglycerides 316.00 H (0.00-149.00) mg/dL VLDL Cholesterol, Calc 63.20 H (5.00-40.00) mg/dL HDL Cholesterol 30.80 L (40.00-60.00) mg/dL 02/15/21 02/16/21 02/16/21 Range/Units 23:49 03:21 04:27 WBC 15.8 H (3.8-10.6) k/uL Hgb 11.3 L (11.4-16.0) gm/dL RDW 15.8 H (11.5-15.5) % Neutrophils # 12.9 H (1.3-7.7) k/uL Monocytes # 1.4 H (0-1.0) k/uL ABG pH (7.35-7.45) ABG HCO3 (21-25) mmol/L ABG Total CO2 (19-24) mmol/L ABG O2 Saturation (94-97) % Sodium 135 L (137-145) mmol/L Glucose 263 H (74-99) mg/dL POC Glucose (mg/dL) 285 H (75-99) mg/dL Calcium 7.6 L (8.4-10.2) mg/dL Total Protein 5.2 L (6.3-8.2) g/dL Albumin 2.6 L (3.5-5.0) g/dL Triglycerides (0.00-149.00) mg/dL VLDL Cholesterol, Calc (5.00-40.00) mg/dL HDL Cholesterol (40.00-60.00) mg/dL 02/16/21 02/16/21 Range/Units 05:44 07:58 WBC (3.8-10.6) k/uL Hgb (11.4-16.0) gm/dL RDW (11.5-15.5) % Neutrophils # (1.3-7.7) k/uL Monocytes # (0-1.0) k/uL ABG pH 7.48 H (7.35-7.45) ABG HCO3 33 H (21-25) mmol/L ABG Total CO2 34 H (19-24) mmol/L ABG O2 Saturation 97.5 H (94-97) % Sodium (137-145) mmol/L Glucose (74-99) mg/dL POC Glucose (mg/dL) 338 H (75-99) mg/dL Calcium (8.4-10.2) mg/dL Total Protein (6.3-8.2) g/dL Albumin (3.5-5.0) g/dL Triglycerides (0.00-149.00) mg/dL VLDL Cholesterol, Calc (5.00-40.00) mg/dL HDL Cholesterol (40.00-60.00) mg/dL Microbiology - Last 24 Hours (Table) 02/13/21 15:15 Gram Stain - Final Sputum Sputum Culture - Final Assessment and Plan Plan: Assessment: #1. Acute hypoxic respiratory failure related to acute cardiac arrest, patient was intubated out in the field on 02/13/2021, and remains intubated currently #2. V. fib and PEA out of hospital cardiopulmonary arrest, with 30 pulmonary resuscitation, and return of spontaneous circulation. Patient required defibrillation 5 times, and out in the field intubation #3. Acute anterior wall myocardial infarction, status post stenting of the LAD on 02/13/2021 #4. Altered mental status, likely related to hypoxic encephalopathy, neurology is following #5. History of diabetes mellitus type 2 #6. Hypertension #7. Hyperlipidemia #8. Hypothyroidism #9. Morbid obesity with BMI of 45.3 kg/m #10. Never smoker #11. History of coronary artery disease #12. New onset age of fibrillation #13. History of marijuana smoking Plan: Proceed with daily interruption of sedation May use Precedex if becomes agitated We'll give another per support of 5 and CPAP of 5 trial today If patient has satisfactory weaning parameters will proceed with extubation Cutback to IV fluids to KVO Echocardiogram has been reviewed, labs and chest x-ray reviewed No arrhythmias overnight, no acute events Will send the pro-calcitonin level, sputum culture We'll cover with antibiotics if positive I performed a history & physical examination of the patient and discussed their management with my nurse practitioner, Ana Tran. I reviewed the nurse practitioner's note and agree with the documented findings and plan of care. Lung sounds are positive for dim breath sounds throughout the lung davalos. The findings and the impression was discussed with the patient. I attest to the documentation by the nurse practitioner. Time with Patient: Greater than 30
--- NOTE | 2021-02-16 10:20 | P.PN ---
Subjective Progress Note Date: 02/15/21 Patient was seen for a follow-up. Patient is still on sedation propofol 50 g per program per minute. Per nursing report, when sedation was decreased, patient nodded appropriately couple times for yes and no. At present patient is sedated. No seizure-like activity noted. Objective - Vital Signs Vital signs: Vital Signs Temp 100.3 F H 02/16/21 08:00 Pulse 107 H 02/16/21 09:00 Resp 30 H 02/16/21 09:00 BP 136/61 02/16/21 09:00 Pulse Ox 96 02/16/21 09:00 Intake & Output 02/15/21 02/16/21 02/16/21 18:59 06:59 18:59 Intake Total 266.160 0633.000 509.20 Output Total 675 600 255 Balance 268.493 747.000 254.20 Weight 135 kg 129.3 kg Intake: IV 600 600 200 Sodium Chloride 0.9% 1, 600 600 200 000 ml @ 50 mls/hr IV . Q20H [facility] Rx#:[id number] Intake, IV Titration 315.493 300.000 197.20 Amount Dexmedetomidine/0.9% NaCl 25.043 0 (Pmx) 400 mcg In Empty Bag 1 bag @ 0.2 MCG/KG/HR 6.83 mls/hr IV .[id number] [facility] Rx#:[id number] propofoL 1,000 mg In 290.45 300.000 197.20 Empty Bag 1 bag @ Titrate IV .Q0M [facility] Rx#: [id number] Tube Feeding 28 327 112 Other 120 Output: Urine 675 600 255 Other: Voiding Method Indwelling Catheter Indwelling Catheter Indwelling Catheter - Exam Patient is sedated. Patient is on ventilator. Pupils are round and reacting. Oculocephalics absent. Corneals minimally present. Patient does not respond to noxious stimuli. Plantars are flat. - Labs CBC & Chem 7: 02/16/21 03:21 02/16/21 04:27 Labs: Abnormal Lab Results - Last 24 Hours (Table) 02/15/21 02/15/21 02/15/21 Range/Units 04:19 12:30 17:21 WBC (3.8-10.6) k/uL Hgb (11.4-16.0) gm/dL RDW (11.5-15.5) % Neutrophils # (1.3-7.7) k/uL Monocytes # (0-1.0) k/uL ABG pH (7.35-7.45) ABG HCO3 (21-25) mmol/L ABG Total CO2 (19-24) mmol/L ABG O2 Saturation (94-97) % Sodium (137-145) mmol/L Glucose (74-99) mg/dL POC Glucose (mg/dL) 328 H 322 H (75-99) mg/dL Calcium (8.4-10.2) mg/dL Total Protein (6.3-8.2) g/dL Albumin (3.5-5.0) g/dL Triglycerides 316.00 H (0.00-149.00) mg/dL VLDL Cholesterol, Calc 63.20 H (5.00-40.00) mg/dL HDL Cholesterol 30.80 L (40.00-60.00) mg/dL 02/15/21 02/16/21 02/16/21 Range/Units 23:49 03:21 04:27 WBC 15.8 H (3.8-10.6) k/uL Hgb 11.3 L (11.4-16.0) gm/dL RDW 15.8 H (11.5-15.5) % Neutrophils # 12.9 H (1.3-7.7) k/uL Monocytes # 1.4 H (0-1.0) k/uL ABG pH (7.35-7.45) ABG HCO3 (21-25) mmol/L ABG Total CO2 (19-24) mmol/L ABG O2 Saturation (94-97) % Sodium 135 L (137-145) mmol/L Glucose 263 H (74-99) mg/dL POC Glucose (mg/dL) 285 H (75-99) mg/dL Calcium 7.6 L (8.4-10.2) mg/dL Total Protein 5.2 L (6.3-8.2) g/dL Albumin 2.6 L (3.5-5.0) g/dL Triglycerides (0.00-149.00) mg/dL VLDL Cholesterol, Calc (5.00-40.00) mg/dL HDL Cholesterol (40.00-60.00) mg/dL 02/16/21 02/16/21 Range/Units 05:44 07:58 WBC (3.8-10.6) k/uL Hgb (11.4-16.0) gm/dL RDW (11.5-15.5) % Neutrophils # (1.3-7.7) k/uL Monocytes # (0-1.0) k/uL ABG pH 7.48 H (7.35-7.45) ABG HCO3 33 H (21-25) mmol/L ABG Total CO2 34 H (19-24) mmol/L ABG O2 Saturation 97.5 H (94-97) % Sodium (137-145) mmol/L Glucose (74-99) mg/dL POC Glucose (mg/dL) 338 H (75-99) mg/dL Calcium (8.4-10.2) mg/dL Total Protein (6.3-8.2) g/dL Albumin (3.5-5.0) g/dL Triglycerides (0.00-149.00) mg/dL VLDL Cholesterol, Calc (5.00-40.00) mg/dL HDL Cholesterol (40.00-60.00) mg/dL Microbiology - Last 24 Hours (Table) 02/13/21 15:15 Gram Stain - Final Sputum Sputum Culture - Final Assessment and Plan Assessment: * Status post cardiac arrest, with the downtime of 32 minutes. At present patient is sedated with propofol 50 g. per nurse report, on sedation holi day, patient did respond slightly better as compared to yesterday. A couple times reported patient nodded appropriately. * Acute STEMI, * New onset atrial fibrillation. * Diabetes * Hypertension * CAD Plan: * Computed tomography scan of head revealed degenerative and nonspecific white matter changes are nonspecific. I reviewed computed tomography scan, no signs of acute stroke. No ICB * EEG was abnormal due to background slowing of mild to moderate degree. This is suggestive of generalized cerebral dysfunction as can be seen with toxic metabolic encephalopathy or from diffuse structural brain abnormality. No epileptiform activity was seen. * Medical management as per IM and critical care * Cardiology also on board. * Continue close neuro checks. * Patient started on aspirin 81 mg and Brilinta, also on high dose statins Lipitor 80 mg. * Repeat PT and INR. Patient's INR was elevated 2.7 of unclear cause, as she is not on warfarin. * DVT prophylaxis with SCDs. * Neurology will follow.
--- NOTE | 2021-02-16 11:09 | PN ---
PROGRESS NOTE Mrs. Hale is a 65-year-old female with a history of diabetes, hypertension and hyperlipidemia who presented with cardiac arrest and evidence of acute anterior wall myocardial infarction, underwent coronary angioplasty and stenting of the LAD in two segments. Her echocardiogram showed no significant impairment in left ventricular systolic function. She remains intubated. Attempts to extubate her yesterday were unsuccessful. She was evaluated by the neurology service and underwent an EEG yesterday that revealed generalized cerebral dysfunction, possible toxic metabolic encephalopathy. Hemodynamically she is stable. She is on no vasopressor. Her urine output has been stable. She continues to be on aspirin once a day, Lipitor 80 mg daily, insulin, lisinopril 5 mg twice a day, metoprolol tartrate 25 mg twice a day, Brilinta 90 mg twice a day and spironolactone 25 mg daily. PHYSICAL EXAMINATION: Blood pressure is running in the 140s to 150s with a heart rate in the low 100s. She has a temperature of a 100.3. Lungs clear anteriorly. Heart: Regular rate and rhythm. S1, S2. No S3. No rub or gallop, with a systolic murmur at the base, ejection type. No diastolic murmur. Abdomen soft, obese. Positive bowel sounds. Extremities no significant edema. LAB DATA: Lab data revealed BUN and creatinine of 16 and 0.52, potassium 3.5. Her pH is 7.48, pCO2 of 45, PO2 of 83. Her hemoglobin is 11.3. IMPRESSION: 1. Status post anterior wall myocardial infarction with stenting of the LAD. 2. Cardiac arrest with ventricular tachycardia and PEA, status post CPR. 3. Hypertension. 4. Hyperlipidemia. 5. Diabetes mellitus. 6. Respiratory failure. 7. Probable metabolic encephalopathy. RECOMMENDATIONS: I will increase the dose of her beta beni and follow her blood pressure and depending on her trend, the lisinopril dose can be further increased. She will be evaluated by Dr. Chávez regarding the requirement for antibiotics. She may have either aspiration or UTI as an explanation for her fever. Depending on her progress, further recommendations will be made. The prognosis remains guarded. MMODL / IJN: [id number] /
[2021-02-16 12:02] LABS: Glucose,Whole Blood 302 mg/dL (75-99)
--- NOTE | 2021-02-16 17:03 | P.PN ---
Subjective Progress Note Date: 02/16/21 Patient was seen for a follow-up. Patient was extubated half an hour ago. Patient is off sedation. Appears somewhat sick. But answers and responds appropriately. Please refer to examination below. Objective - Vital Signs Vital signs: Vital Signs Temp 98.8 F 02/16/21 12:00 Pulse 79 02/16/21 16:00 Resp 24 02/16/21 16:00 BP 138/73 02/16/21 16:00 Pulse Ox 98 02/16/21 16:00 Intake & Output 02/15/21 02/16/21 02/16/21 18:59 06:59 18:59 Intake Total 181.080 7338.000 1050.749 Output Total 675 600 570 Balance 268.493 747.000 480.749 Weight 135 kg 129.3 kg Intake: IV 600 600 500 Sodium Chloride 0.9% 1, 600 600 500 000 ml @ 50 mls/hr IV . Q20H [facility] Rx#:[id number] Intake, IV Titration 315.493 300.000 382.749 Amount Dexmedetomidine/0.9% NaCl 25.043 185.549 (Pmx) 400 mcg In Empty Bag 1 bag @ 0.2 MCG/KG/HR 6.83 mls/hr IV .[id number] [facility] Rx#:[id number] propofoL 1,000 mg In 290.45 300.000 197.20 Empty Bag 1 bag @ Titrate IV .Q0M [facility] Rx#: [id number] Tube Feeding 28 327 168 Other 120 Output: Urine 675 600 570 Other: Voiding Method Indwelling Catheter Indwelling Catheter Indwelling Catheter - Exam Patient is extubated, appears somewhat restless, turns her head back and forth, but does respond appropriately. Patient is quite alert and awake, slightly encephalopathic. Patient makes eye contact. Patient able to name eyeglasses very well. Her pupils are round and reacting. Extraocular muscles are intact. Face appears symmetric. She appears generalized weak. However she was able to squeeze the hand to 3+ bilaterally, able to lift her arms antigravity, also able to wiggle her feet bilaterally. Patient nodded "no" for headache. No obvious seizure activity. - Labs CBC & Chem 7: 02/16/21 03:21 02/16/21 04:27 Labs: Abnormal Lab Results - Last 24 Hours (Table) 02/15/21 02/15/21 02/15/21 Range/Units 04:19 17:21 23:49 WBC (3.8-10.6) k/uL Hgb (11.4-16.0) gm/dL RDW (11.5-15.5) % Neutrophils # (1.3-7.7) k/uL Monocytes # (0-1.0) k/uL ABG pH (7.35-7.45) ABG HCO3 (21-25) mmol/L ABG Total CO2 (19-24) mmol/L ABG O2 Saturation (94-97) % Sodium (137-145) mmol/L Glucose (74-99) mg/dL POC Glucose (mg/dL) 322 H 285 H (75-99) mg/dL Calcium (8.4-10.2) mg/dL Total Protein (6.3-8.2) g/dL Albumin (3.5-5.0) g/dL Triglycerides 316.00 H (0.00-149.00) mg/dL VLDL Cholesterol, Calc 63.20 H (5.00-40.00) mg/dL HDL Cholesterol 30.80 L (40.00-60.00) mg/dL Procalcitonin (0.02-0.09) ng/mL 02/16/21 02/16/21 02/16/21 Range/Units 03:21 04:27 04:27 WBC 15.8 H (3.8-10.6) k/uL Hgb 11.3 L (11.4-16.0) gm/dL RDW 15.8 H (11.5-15.5) % Neutrophils # 12.9 H (1.3-7.7) k/uL Monocytes # 1.4 H (0-1.0) k/uL ABG pH (7.35-7.45) ABG HCO3 (21-25) mmol/L ABG Total CO2 (19-24) mmol/L ABG O2 Saturation (94-97) % Sodium 135 L (137-145) mmol/L Glucose 263 H (74-99) mg/dL POC Glucose (mg/dL) (75-99) mg/dL Calcium 7.6 L (8.4-10.2) mg/dL Total Protein 5.2 L (6.3-8.2) g/dL Albumin 2.6 L (3.5-5.0) g/dL Triglycerides (0.00-149.00) mg/dL VLDL Cholesterol, Calc (5.00-40.00) mg/dL HDL Cholesterol (40.00-60.00) mg/dL Procalcitonin 1.37 H (0.02-0.09) ng/mL 02/16/21 02/16/21 02/16/21 Range/Units 05:44 07:58 12:00 WBC (3.8-10.6) k/uL Hgb (11.4-16.0) gm/dL RDW (11.5-15.5) % Neutrophils # (1.3-7.7) k/uL Monocytes # (0-1.0) k/uL ABG pH 7.48 H (7.35-7.45) ABG HCO3 33 H (21-25) mmol/L ABG Total CO2 34 H (19-24) mmol/L ABG O2 Saturation 97.5 H (94-97) % Sodium (137-145) mmol/L Glucose (74-99) mg/dL POC Glucose (mg/dL) 338 H 302 H (75-99) mg/dL Calcium (8.4-10.2) mg/dL Total Protein (6.3-8.2) g/dL Albumin (3.5-5.0) g/dL Triglycerides (0.00-149.00) mg/dL VLDL Cholesterol, Calc (5.00-40.00) mg/dL HDL Cholesterol (40.00-60.00) mg/dL Procalcitonin (0.02-0.09) ng/mL Microbiology - Last 24 Hours (Table) 02/13/21 15:15 Gram Stain - Final Sputum Sputum Culture - Final Assessment and Plan Assessment: * Status post cardiac arrest, with the downtime of 32 minutes. Patient is extubated today, following commands, able to speak a couple words and move her extremities to some extent on command. * Acute STEMI, * New onset atrial fibrillation. * Diabetes * Hypertension * CAD Plan: * Patient is post extubation, doing quite well. Patient responding appropriately. Still generalized weak, but much better than yesterday. * Computed tomography scan of head revealed degenerative and nonspecific white matter changes are nonspecific. I reviewed computed tomography scan, no signs of acute stroke. No ICB * EEG was abnormal due to background slowing of mild to moderate degree. This is suggestive of generalized cerebral dysfunction as can be seen with toxic metabolic encephalopathy or from diffuse structural brain abnormality. No epileptiform activity was seen. * Medical management as per IM and critical care * Cardiology also on board. * Continue close neuro checks. * Patient started on aspirin 81 mg and Brilinta, also on high dose statins Lipitor 80 mg. * DVT prophylaxis with SCDs. * Neurology will follow.
[2021-02-16 17:53] LABS: Glucose,Whole Blood 186 mg/dL (75-99)
--- NOTE | 2021-02-16 21:15 | P.PN ---
Subjective This is a pleasant 65 years old female with past medical history of Coronary Artery Disease , Diabetes Mellitus, GERD, Hypertension, hypothyroidism. She is a patient of Dr. Brambila Patient presents with unresponsiveness and and cardiac arrest. CPR was ongoing through EMS, patient was found in ventricular fibrillation per EMS, Pt was given 5 epi, 5 shocks and 450mg of Amniodarone. Pt did have ROSC for a few minutes but when arriving to ER no pulse present. In the emergency room patient got intubated and placed on mechanical ventilation. Initial vitals showed temperature 97.3, heart rate 79, breathing rate 16, blood pressure 118/71 and 92/62 and she was saturating 96% on mechanical ventilation Labs were showing leukocytosis of 20.5 K. INR 2.7 PH 7.2, pCO2 47 and pO2 59. Sodium 137, low potassium 2.8, normal creatinine 0.9. Glucose elevated to 65. Liver enzymes slightly elevated with AST 83 and ALT 36. Trending up troponin 0.02, 9.4 and 23.9. Coronavirus chest x-ray: Status post intubation. There may be underlying pulmonary edema or pneumonia. Repeat fracture noted on the left Nondetected. EKG showing ST elevation in anterior septal leads V1 to V4 Patient was taken to emergent cardiac cath and she underwent cardiac cathete rization with PCI to the totally occluded proximal LAD. After the procedure patient was placed on aspirin, Brillinta ,and beta beni, GONZALEZ inhibitor and statin Today patient is still intubated in the ICU, and on mechanical ventilation. She has PEEP of 10, FiO2 of 40%, tidal volume 375, she has sinus rhythm at 90 bpm, she has a Mcneil and OG tube. She has normal saline running at 50 mL per hour 02/15/2021 ICU intubated and sedated with pulmonary/critical care team followed closely Patient failed sedation trial yesterday and today. Neurology team on the case PEG showing no epileptiform discharge Ejection fraction is 50-55% Chest x-ray no change from yesterday Labs reviewed, WBC down to 14 K, INR down to normal at 1.5 Patient remains on aspirin and Brilinta Continue with gentle hydration, lisinopril, metoprolol and Aldactone with cardiology and nephrology followed the patient closely 02/16/2021 Patient remains in the ICU intubated and sedated. She is undergoing sedation holiday today as well with possible extubation that are on. She is developing fever of 100.4, her WBCs 15 K. EEG showing no epileptiform discharge. Chest x-ray showing increased perihilar opacity. There are sputum culture, proteincalcitonin. Patient is kept on aspirin and Brilinta and gentle hydration. Objective - Vital Signs Vital signs: Vital Signs Temp 100.3 F H 02/16/21 08:00 Pulse 107 H 02/16/21 09:00 Resp 30 H 02/16/21 09:00 BP 136/61 02/16/21 09:00 Pulse Ox 96 02/16/21 09:00 Intake & Output 02/15/21 02/16/21 02/16/21 18:59 06:59 18:59 Intake Total 196.727 1310.000 509.20 Output Total 675 600 255 Balance 268.493 747.000 254.20 Weight 135 kg 129.3 kg Intake: IV 600 600 200 Sodium Chloride 0.9% 1, 600 600 200 000 ml @ 50 mls/hr IV . Q20H ADRIANA Rx#:[id number] Intake, IV Titration 315.493 300.000 197.20 Amount Dexmedetomidine/0.9% NaCl 25.043 0 (Pmx) 400 mcg In Empty Bag 1 bag @ 0.2 MCG/KG/HR 6.83 mls/hr IV .[id number] ADRIANA Rx#:[id number] propofoL 1,000 mg In 290.45 300.000 197.20 Empty Bag 1 bag @ Titrate IV .Q0M ADRIANA Rx#: [id number] Tube Feeding 28 327 112 Other 120 Output: Urine 675 600 255 Other: Voiding Method Indwelling Catheter Indwelling Catheter Indwelling Catheter - Exam -GENERAL: The patient is sedated and intubated, not in any acute distress. morbidly obese HEENT: Pupils are round and equally reacting to light. EOMI. No scleral icterus. No conjunctival pallor. Normocephalic, atraumatic. No pharyngeal erythema. No thyromegaly. CARDIOVASCULAR: S1 and S2 present. No murmurs, rubs, or gallops. PULMONARY: Chest is clear to auscultation, no wheezing. ABDOMEN: Soft, nontender, nondistended, normoactive bowel sounds. No palpable organomegaly. MUSCULOSKELETAL: No joint swelling or deformity. EXTREMITIES: No cyanosis, clubbing, or pedal edema. NEUROLOGICAL: Gross neurological examination did not reveal any focal deficits. SKIN: No rashes. no petechiae. - Labs CBC & Chem 7: 02/16/21 03:21 02/16/21 04:27 Labs: Abnormal Lab Results - Last 24 Hours (Table) 02/15/21 02/15/21 02/15/21 Range/Units 04:19 12:30 17:21 WBC (3.8-10.6) k/uL Hgb (11.4-16.0) gm/dL RDW (11.5-15.5) % Neutrophils # (1.3-7.7) k/uL Monocytes # (0-1.0) k/uL ABG pH (7.35-7.45) ABG HCO3 (21-25) mmol/L ABG Total CO2 (19-24) mmol/L ABG O2 Saturation (94-97) % Sodium (137-145) mmol/L Glucose (74-99) mg/dL POC Glucose (mg/dL) 328 H 322 H (75-99) mg/dL Calcium (8.4-10.2) mg/dL Total Protein (6.3-8.2) g/dL Albumin (3.5-5.0) g/dL Triglycerides 316.00 H (0.00-149.00) mg/dL VLDL Cholesterol, Calc 63.20 H (5.00-40.00) mg/dL HDL Cholesterol 30.80 L (40.00-60.00) mg/dL 02/15/21 02/16/21 02/16/21 Range/Units 23:49 03:21 04:27 WBC 15.8 H (3.8-10.6) k/uL Hgb 11.3 L (11.4-16.0) gm/dL RDW 15.8 H (11.5-15.5) % Neutrophils # 12.9 H (1.3-7.7) k/uL Monocytes # 1.4 H (0-1.0) k/uL ABG pH (7.35-7.45) ABG HCO3 (21-25) mmol/L ABG Total CO2 (19-24) mmol/L ABG O2 Saturation (94-97) % Sodium 135 L (137-145) mmol/L Glucose 263 H (74-99) mg/dL POC Glucose (mg/dL) 285 H (75-99) mg/dL Calcium 7.6 L (8.4-10.2) mg/dL Total Protein 5.2 L (6.3-8.2) g/dL Albumin 2.6 L (3.5-5.0) g/dL Triglycerides (0.00-149.00) mg/dL VLDL Cholesterol, Calc (5.00-40.00) mg/dL HDL Cholesterol (40.00-60.00) mg/dL 02/16/21 02/16/21 Range/Units 05:44 07:58 WBC (3.8-10.6) k/uL Hgb (11.4-16.0) gm/dL RDW (11.5-15.5) % Neutrophils # (1.3-7.7) k/uL Monocytes # (0-1.0) k/uL ABG pH 7.48 H (7.35-7.45) ABG HCO3 33 H (21-25) mmol/L ABG Total CO2 34 H (19-24) mmol/L ABG O2 Saturation 97.5 H (94-97) % Sodium (137-145) mmol/L Glucose (74-99) mg/dL POC Glucose (mg/dL) 338 H (75-99) mg/dL Calcium (8.4-10.2) mg/dL Total Protein (6.3-8.2) g/dL Albumin (3.5-5.0) g/dL Triglycerides (0.00-149.00) mg/dL VLDL Cholesterol, Calc (5.00-40.00) mg/dL HDL Cholesterol (40.00-60.00) mg/dL Microbiology - Last 24 Hours (Table) 02/13/21 15:15 Gram Stain - Final Sputum Sputum Culture - Final Assessment and Plan Assessment: Acute anteroseptal STEMI Cardiac arrest, status post ventricular fibrillation status post CPR and return of circulation Acute hypoxic respiratory failure needing intubation and mechanical ventilation Metabolic acidosis Possible pulmonary edema Leukocytosis, secondary to above Left fracture secondary to CPR Coagulopathy with INR 2.7 upon admission, resolved Hypertension Hypothyroidism Diabetes mellitus History of GERD History of coronary artery disease Morbidly obese. BMI 45.8 Plan: This is a 65 years old female who presents with STEMI and cardiac arrest status post CPR and intubation, underwent cardiac cath and PCI to LAD Continue with aspirin, brillinta , beta beni, statin and GONZALEZ inhibitor Continue with Intubation and mechanical ventilation with pulmonary/critical care team consult with possible extubation. Pulmonary team Registered Nurse Supervisor on the case Neurologist consulted Labs and medication were reviewed.. Continue same treatment. Continue with symptomatic treatment. Resume home medication. Monitor lytes and vitals. DVT and GI prophylaxis. Further recommendations as per clinical course of the patient DVT prophylaxis: Aspirin and brillinta GI Prophylaxis: Pepcid PT/OT: Pending Prognosis is guarded
[2021-02-16] MEDS: ATORVASTATIN 80 MG TAB PO SCH (21:47)
[2021-02-16] MEDS ORDERED: ACETAMINOPHEN SUPPOSITORY 650 MG SUPP RECTAL PRN (22:11)
[2021-02-16] MEDS ORDERED: ACETAMINOPHEN IV (For NPO) 1,000 MG in EMPTY BAG 1 BAG IVPB ONE (22:11)
[2021-02-16 23:36] LABS: Glucose,Whole Blood 138 mg/dL (75-99)
[2021-02-17] MEDS: DEXMEDETOMIDINE/0.9% NACL(PMX) 400 MCG in EMPTY BAG 1 BAG IV SCH ×2 (01:30→03:44)
[2021-02-17] MEDS: IPRATROPIUM-ALBUTEROL 3 ML NEB INHALATION SCH ×6 (01:42→20:47)
[2021-02-17 03:49] LABS: HCT 31.6 % (34.0-46.0); Hypochromasia Moderate; MCH 29.7 pg (25.0-35.0); MCHC 31.7 g/dL (31.0-37.0); MCV 93.7 fL (80.0-100.0); Mean Platelet Volume 7.7; Platelet Count 155 k/uL (150-450); RBC 3.37 m/uL (3.80-5.40); RDW 15.7 % (11.5-15.5); WBC 11.9 k/uL (3.8-10.6)
[2021-02-17 04:28] LABS: African American GFR (CKD) >90 (>60 ml/min/1.73 sqM); Anion Gap 9 mmol/L; Blood Urea Nitrogen 19 mg/dL (7-17); Calcium 8.3 mg/dL (8.4-10.2); Carbon Dioxide 28 mmol/L (22-30); Chloride 106 mmol/L (98-107); Glucose 158 mg/dL (74-99); Non-African American GFR(CKD) 87 (>60 ml/min/1.73 sqM); Potassium 4.2 mmol/L (3.5-5.1); Sodium 143 mmol/L (137-145)
[2021-02-17] MEDS: LEVOTHYROXINE 100 MCG TAB PO SCH (06:41)
[2021-02-17 06:42] LABS: Glucose,Whole Blood 229 mg/dL (75-99)
[2021-02-17] MEDS: INSULIN ASPART (NovoLOG) 100 UNIT/ML VIAL SQ SCH ×4 (06:45→23:50)
--- NOTE | 2021-02-17 06:54 | XR ---
EXAMINATION TYPE: XR chest 1V DATE OF EXAM: 02/17/2021 CLINICAL HISTORY: Difficulty breathing had to be intubated. TECHNIQUE: Single AP portable semiupright view of the chest is obtained. COMPARISON: Chest x-ray from earlier today and older studies FINDINGS: New orogastric tube projects below diaphragm. New Endotracheal tube terminates aortic knob level just above oksana. Low lung volumes with increasing right basilar opacity. Persistent left basilar opacity. Cardiac silh ouette size within normal limits. Osseous structures are intact. IMPRESSION: 1. New endotracheal and orogastric tubes satisfactory in position. 2. Stable small left pleural effusion with associated left basilar atelectasis and/or infiltrate. New tiny right pleural effusion with developing right basilar acute atelectasis and/or infiltrate.
[2021-02-17] MEDS ORDERED: CISATRACURIUM 2 MG/ML 5 ML VIAL IV ONE ×2 (08:06→08:48)
--- NOTE | 2021-02-17 08:22 | XR ---
EXAMINATION TYPE: XR chest 1V portable DATE OF EXAM: 02/17/2021 COMPARISON: 02/16/2021 HISTORY: Tube placement TECHNIQUE: Single frontal view of the chest is obtained. FINDINGS: ET and NG tube is been removed. Persistent left-sided consolidation and pleural effusion. Patchy right perihilar infiltrate stable. No pneumothorax. Hypertrophic and degenerative change of th e spine. IMPRESSION: Bilateral infiltrate stable.
[2021-02-17] MEDS: METOPROLOL TARTRATE 5 MG/5 ML VIAL IVP SCH ×2 (08:30→08:37)
--- NOTE | 2021-02-17 08:37 | PN ---
PROGRESS NOTE Mrs. Hale is a 65-year-old female who presented with an acute anterior wall myocardial infarction complicated by cardiac arrest and ventricular fibrillation and CPR. She underwent cardiac catheterization, angioplasty and stenting of the LAD yesterday. She was extubated, but then earlier in the morning became more tachypneic, hypoxic requiring repeat intubation. She is intubated at this time in sinus mechanism. Blood pressure is good. Hemodynamically stable. Her urine output is stable. She had no evidence of ventricular tachycardia or malignant arrhythmia. She continues to be on aspirin once a day, Lipitor 80 mg daily, Zestril 5 mg twice a day, metoprolol tartrate 50 mg twice a day, Aldactone 25 mg daily and Brilinta 90 mg twice a day. PHYSICAL EXAMINATION: Her blood pressure is running in the 130s with a heart rate in the 70s. Her heart rate went up to 120s prior to intubation. LUNGS: Clear. HEART: Regular rate and rhythm S1, S2. No S3. No rub appreciated. ABDOMEN: Soft, obese. Positive bowel sounds. EXTREMITIES: No significant edema. LAB DATA: Lab data revealed BUN and creatinine 19 and 0.74, potassium 4.2, hemoglobin of 10. Chest x-ray shows a small right pleural effusion. IMPRESSION: 1. Respiratory failure requiring repeat intubation, rule out aspiration pneumonia at the time of her initial presentation or yesterday, no evidence of CHF. 2. Status post acute anterior myocardial infarction with stenting of the LAD on February 13. 3. Ventricular tachycardia, ventricular fibrillation and CPR prior to the angioplasty and stenting. 4. History of hypertension. 5. Hyperlipidemia. 6. Diabetes mellitus. 7. Anoxic encephalopathy. RECOMMENDATIONS: From the cardiac standpoint, we will continue present therapy. The patient does not appear to be fluid overloaded at this point. Her urine output has been good. She will be further evaluated today by Dr. Chávez and her respiratory status will be further assessed. Depending on her progress, further recommendations will be made. MMODL / IJN: [id number] / MTDD
--- NOTE | 2021-02-17 08:46 | XR ---
EXAMINATION TYPE: XR chest 1V portable DATE OF EXAM: 02/17/2021 CLINICAL HISTORY: Central line placement. TECHNIQUE: Single AP portable semi-upright view of the chest is obtained. COMPARISON: Chest x-ray from earlier today. FINDINGS: New left-sided internal jugular central venous catheter terminates at cavoatrial junction. No pneumothorax after central line placement. Stable endotracheal and orogastric tubes. Low lung volumes with bibasilar opacities redemonstrated and stable. Cardiac silhouette size is stab le and upper limits of normal. Osseous structures are intact. IMPRESSION: As above.
[2021-02-17] MEDS: CISATRACURIUM 200 MG in SODIUM CHLORIDE 0.9% 180 ML IV SCH ×2 (08:58→16:55)
[2021-02-17] MEDS ORDERED: CISATRACURIUM 200 MG in SODIUM CHLORIDE 0.9% 180 ML IV SCH (09:00)
[2021-02-17 09:22] LABS: ABG Base Excess -1.5 mmol/L; ABG HCO3 25 mmol/L (21-25); ABG PCO2 48 mmHg (35-45); ABG PH 7.32 (7.35-7.45); ABG PO2 122 mmHg (83-108); ABG TCO2 26 mmol/L (19-24)
[2021-02-17 09:24] LABS: Allen Test Performed? no
[2021-02-17] MEDS: CEFEPIME 2 GM in SODIUM CHLORIDE 0.9% 100 ML IVPB SCH ×3 (09:33→23:52)
[2021-02-17] MEDS: SPIRONOLACTONE 25 MG TAB PO SCH (09:34)
[2021-02-17] MEDS: CHLORHEXIDINE GLUCONATE 15 ML CUP MUCOUS MEM SCH ×2 (09:34→20:56)
[2021-02-17] MEDS: lisinopriL 5 MG TAB PO SCH ×3 (09:34→22:27)
[2021-02-17] MEDS: ASPIRIN 81 MG PO SCH (09:34)
[2021-02-17] MEDS: PANTOPRAZOLE 40 MG/10 ML VIAL IVP SCH (09:34)
[2021-02-17] MEDS: METOPROLOL TARTRATE 50 MG TAB PO SCH ×3 (09:34→22:29)
--- NOTE | 2021-02-17 10:07 | PCN ---
PROCEDURE NOTE PROCEDURE PERFORMED: Left internal jugular triple-lumen catheter. CURATOR: Dr. Chávez and Dr. Tran. PREOP DIAGNOSIS: Administration of fluids and pressors. POSTOP DIAGNOSIS: Administration of fluids and pressors. TRIPLE LUMEN CATHETER PLACEMENT: Indication: Hemodynamic monitoring/Intravenous access. A time-out was completed verifying correct patient, procedure, site, positioning, and implant(s) or special equipment if applicable. The patient was placed in a dependent position appropriate for triple lumen catheter placement based on the vein to be cannulated. The patient's left neck was prepped and draped in sterile fashion. 1% Lidocaine was used to anesthetize the surrounding skin area. A triple lumen 9F Cordis catheter was introduced into the internal jugular vein using Seldinger technique. The catheter was threaded smoothly over the guide wire and appropriate blood return was obtained. Each lumen of the catheter was evacuated of air and flushed with sterile saline. The catheter was then sutured in place to the skin and a sterile dressing applied. Perfusion to the extremity distal to the point of catheter insertion was checked and found to be adequate. There was no immediate complication. We used the left internal jugular site. We did a posterior approach. There was good blood return from all 3 ports. The patient tolerated the procedure well. Catheter was sutured in place. A sterile dressing was applied by the nurse. A chest x-ray was ordered to check placement. Rule out complication. MMODL / IJN: [id number] /
[2021-02-17] MEDS ORDERED: METOPROLOL TARTRATE 5 MG/5 ML VIAL IVP ONE (10:11)
[2021-02-17] MEDS: METOPROLOL TARTRATE 5 MG/5 ML VIAL IVP PRN ×2 (10:19→15:44)
--- NOTE | 2021-02-17 10:19 | PCN ---
PROCEDURE NOTE PULMONARY/CRITICAL CARE PROCEDURE NOTE: PROCEDURE PERFORMED: Right radial art line. INTRANET DEVELOPER: Dr. Chávez and Dr. Tran. ARTERIAL LINE PLACEMENT: PREOP DIAGNOSIS: Frequent blood draws and blood gas monitoring. POSTOP DIAGNOSIS: Frequent blood draws and blood gas monitoring. Indications: Hemodynamic monitoring. A time-out was completed verifying correct patient, procedure, site, positioning, and implant(s) or special equipment if applicable. Everette's test was performed to ensure adequate perfusion. The patient's right wrist was prepped and draped in sterile fashion. 1% Lidocaine was used to anesthetize the area. An 18G Arrow arterial line was introduced into the radial artery. The catheter was threaded over the guide wire and the needle was removed with appropriate pulsatile blood return. Blood loss was minimal. The catheter was then sutured in place to the skin and a sterile dressing applied. Perfusion to the extremity distal to the point of catheter insertion was checked and found to be adequate. The patient tolerated the procedure well and there were no complications. We used the right radial artery. The catheter was sutured in place. There was good blood return and waveform. The patient tolerated procedure well. A sterile dressing was applied by the nurse. There was no immediate complication. MMODL / IJN: [id number] /
--- NOTE | 2021-02-17 11:24 | P.PN ---
Subjective Progress Note Date: 02/17/21 Principal diagnosis: Acute cardiac arrest 65-year-old female with a history of diabetes, hypothyroidism, hyperlipidemia, hypertension, gastroesophageal reflux disease, and obesity, who was seen in the emergency room, on February 13. She apparently had a witnessed cardiac arrest in front of family members. EMS was called, and ACLS protocol was begun. The patient was noted to be in ventricular fibrillation. She apparently was intubated, and placed on the monitor and found to have ventricular fibrillation, and was defibrillated, a total of 5 times he was given 450 mg of amiodarone. She did apparently have spontaneous circulation briefly upon arrival, but apparently did develop PEA rhythm in the emergency room, and ACLS was continued. The patient was taken to the [facility], and found to have a complete occlusion of the LAD. 2 stents replaced, via the right radial approach. The patient came back to the intensive care unit on the ventilator. She is on the volume assist control mode, rate 18, tidal volumes 375, FiO2 100%, and PEEP of 10. Initial gases showed a pO2 of 59, pCO2 47, and a pH is 7.26. These blood gases were done on a rate of 14, and a PEEP of 5. Hence the increase in rate and PEEP. The patient is currently on Toprol fall at 25 mcg/kg/m, and saline at 50 mL an hour. I reviewed her medications at the bedside with the nurse, Rachael. The jac n is to keep her on the ventilator overnight, and work on getting her extubated in the morning. Because of a cardiac arrest, no history could be obtained. The medical history that I noted above, was gleaned from the medications that she takes. They included Requip, Glucophage, micardis HCT, metoprolol, Synthroid, insulin, famotidine, Lipitor, and aspirin. The patient is seen today 02/14/2021 in follow-up in the intensive care unit. She remains intubated, sedated and on the mechanical ventilator. Current settings are assist-control mode at a rate of 18, tidal volume 375, FiO2 40% and a PEEP of 10. Morning blood gases revealed a PaO2 of 159, pCO2 44, pH 7.4 to on 50% FiO2. She is sedated with propofol at 45 mcg/kg/m. 0.9 normal saying at 50 MLS per hour. Chest x-ray reveals good placement of the endotracheal tube and nasogastric tubes. There is no pneumothorax. Some basilar density obscures left hemidiaphragm. Improved aeration in the right lung. Some bibasilar atelectasis. Left-sided rib fractures. Sputum culture pending. White count 20.1. Hemoglobin 12.2. Platelets 205. Sodium 135. Potassium 4.7. Creatinine 0.72. Glucose 238. Urine culture pending. She's been initiated and DuoNeb inhalations. Remains on Brilinta and aspirin. On 02/15/2021 patient seen in follow-up in intensive care unit, she remains intubated, and sedated on mechanical ventilator with assist control mode of ventilation with a rate of 18, tidal, 375, PEEP of 10, and FiO2 of 40%. This morning's blood gas shows pO2 of 86, pCO2 48, and pH of 7.43. 0.9 normal saline entered a 50 ML per hour, Diprivan is at 20 mics per kilo per minute. No tube feedings. She is in sinus mechanism with a rate of 122. Her sedation is being weaned, she failed a sedation holiday yesterday. Right now she has her eyes open, she appears to be slightly tracking with her gaze, however she is not following commands, and she is becoming restless and agitated. She is not on any vasopressor support, no arrhythmias overnight, no acute events. Chest x-ray today shows basilar density at the left hemidiaphragm likely related to atelectasis. Left-sided rib fractures, stable exam. Brain CT from yesterday shows degenerative and nonspecific white matter changes, and MRI was recommended to exclude acute ischemia. No acute hemorrhage or mass effect. Neurology is following, EEG has been completed showing background slowing of mild to moderate degree suggestive of generalized cerebral dysfunction as can be seen with toxic metabolic encephalopathy, no epileptiform activity. Today's labs have been reviewed with blood cell count is improving and is down to 14.3, hemoglobin is 11.6, electrolytes and renal profile are within normal limits, urinalysis showed turbid urine, with 1+ protein, 2+ glucose, small leuks, but no definite sign of infection, urine drug screen showed benzodiazepines and marijuana. COVID-19 PCR was negative. Sputum culture has been sent showing no PMNs, moderate gram-posi tive cocci On 02/16/2021 patient seen in follow-up in the intensive care unit, she remains intubated, sedated on assist control mode of ventilation with a rate of 18, tidal vital 375, FiO2 40% and PEEP of 10. Her peak air pressures 27, and her static pressure is 17. Today's chest x-ray shows perihilar opacities with possible slight increase, and possible mild pulmonary vascular congestion. The re is a small left pleural effusion with atelectasis in the retrocardiac region. Her EEG showed background slowing of mild to moderate degree, and generalized cerebral dysfunction as can be seen with toxic metabolic encephalopathy, no epileptiform activity. Brain CT showed degenerative nonspecific white matter changes. Blood gas today shows pO2 of 83, pCO2 45, and pH of 7.48. Her white blood cell count is improving, is down to 15.8, hemoglobin is 11.3, sodium is 135, the rest of electrolytes and renal profile are unremarkable. Patient is currently on 0.0 cm with a 50 ML per hour and debridement is a 40 mics per kilo per minute. She is in sinus mechanism, with a rate of 12. Yesterday patient tolerated sedation holiday, and she tolerated a brief CPAP trial, however weaning parameters were suboptimal, and patient was not ready to extubate and she was placed on assist-control mode of ventilation and received a day. She's had no acute events overnight. She is having some colored secretions suctioned out of her ET tube. She is tolerating her tube feedings, she is on vital 1.2 at a rate of 28. On 02/17/2021 patient seen in follow-up in intensive care unit. She was weaned and extubated from mechanical ventilator last night, however through the night of her breathing had worsened, and exhalation had to be placed on BiPAP support. Early this morning she had failed the BiPAP support, she was very dyspneic, tachycardic, and she had to be reintubated at 6:00 this morning. She is currently on assist control mode of ventilation with a rate of 18, tidal vital 400, FiO2 of 70% and PEEP of 12. She is currently unemployed and was seen at a rate of 29 per hour, Diprivan is a 60 mics per minute. And patient will also need to be paralyzed. Chest x-ray from this morning showed low lung volumes with bibasilar opacities. Patient was still quite tachycardic but in sinus mechanism, and hypertensive, she was given 5 mg of Lopressor IV push with good response, she is less tachycardic and blood pressure has improved. Patient is already on maintenance dose Lopressor 50 mg twice daily. Cardiology is following. The rest of her blood work was reviewed showing white blood cell count of 11.9, hemoglobin of 10, electrolytes are within normal limits, BUN of 19 and creatinine 0.74. Pro-calcitonin level was elevated at 1.37, and patient will be started on cefepime for empiric antibiotic coverage, sputum culture will be sent. Blood culture has also been ordered. Patient is on Protonix for GI prophylaxis, we will add Lovenox for DVT prophylaxis. Objective - Vital Signs Vital signs: Vital Signs Temp 102.9 F H 02/17/21 08:00 Pulse 133 H 02/17/21 10:00 Resp 18 02/17/21 10:00 BP 118/57 02/17/21 10:00 Pulse Ox 96 02/17/21 10:00 Intake & Output 02/16/21 02/17/21 02/17/21 18:59 06:59 18:59 Intake Total 1177.841 729.620 178.648 Output Total 670 675 325 Balance 507.841 54.620 -146.352 Weight 130.4 kg 130.4 kg Intake: IV 600 270 60 Sodium Chloride 0.9% 1, 600 270 60 000 ml @ 20 mls/hr IV . Q24H [facility] Rx#:[id number] Intake, IV Titration 409.841 459.620 118.648 Amount ACETAMINOPHEN IV (For NPO 100 ) 1,000 mg In Empty Bag 1 bag @ 400 mls/hr IVPB ONCE ONE Rx#:[id number] Dexmedetomidine/0.9% NaCl 212.641 347.754 (Pmx) 400 mcg In Empty Bag 1 bag @ 0.2 MCG/KG/HR 6.83 mls/hr IV .[id number] [facility] Rx#:[id number] propofoL 1,000 mg In 197.20 11.866 118.648 Empty Bag 1 bag @ Titrate IV .Q0M [facility] Rx#: [id number] Tube Feeding 168 Output: Urine 670 675 325 Other: Voiding Method Indwelling Catheter Indwelling Catheter ABP, PAP, CO, CI - Last Documented Arterial Blood Pressure 141/76 - Exam GENERAL EXAM: 65-year-old white female patient on assist-control mode of ventilation, sedated, but not paralyzed yet, currently on assist-control mode of ventilation, with a rate of 18, tidal volume 400, FiO2 of 70% and PEEP of 12. HEAD: Normocephalic/atraumatic. EYES: Normal reaction of pupils, equal size. Conjunctiva pink, sclera white. NOSE: Clear with pink turbinates. THROAT: No erythema or exudates. NECK: No masses, no JVD, no thyroid enlargement, no adenopathy. CHEST: No chest wall deformity. Symmetrical expansion. LUNGS: Equal air entry with no crackles, wheeze, rhonchi or dullness. CVS: Regular rate and rhythm, normal S1 and S2, no gallops, no murmurs, no rubs ABDOMEN: Soft, nontender. No hepatosplenomegaly, normal bowel sounds, no guarding or rigidity. EXTREMITIES: No clubbing, no edema, no cyanosis, 2+ pulses and upper and lower extremities. MUSCULOSKELETAL: Muscle strength and tone normal. SPINE: No scoliosis or deformity SKIN: No rashes CENTRAL NERVOUS SYSTEM: Sedated, restless intubated No focal deficits, tone is normal in all 4 extremities. - Labs CBC & Chem 7: 02/17/21 03:08 02/17/21 03:08 Labs: Abnormal Lab Results - Last 24 Hours (Table) 02/16/21 02/16/21 02/16/21 Range/Units 04:27 12:00 17:52 WBC (3.8-10.6) k/uL RBC (3.80-5.40) m/uL Hgb (11.4-16.0) gm/dL Hct (34.0-46.0) % RDW (11.5-15.5) % ABG pH (7.35-7.45) ABG pCO2 (35-45) mmHg ABG pO2 (83-108) mmHg ABG Total CO2 (19-24) mmol/L ABG O2 Saturation (94-97) % BUN (7-17) mg/dL Glucose (74-99) mg/dL POC Glucose (mg/dL) 302 H 186 H (75-99) mg/dL Calcium (8.4-10.2) mg/dL Procalcitonin 1.37 H (0.02-0.09) ng/mL 02/16/21 02/17/21 02/17/21 Range/Units 23:34 03:08 03:08 WBC 11.9 H (3.8-10.6) k/uL RBC 3.37 L (3.80-5.40) m/uL Hgb 10.0 L (11.4-16.0) gm/dL Hct 31.6 L (34.0-46.0) % RDW 15.7 H (11.5-15.5) % ABG pH (7.35-7.45) ABG pCO2 (35-45) mmHg ABG pO2 (83-108) mmHg ABG Total CO2 (19-24) mmol/L ABG O2 Saturation (94-97) % BUN 19 H (7-17) mg/dL Glucose 158 H (74-99) mg/dL POC Glucose (mg/dL) 138 H (75-99) mg/dL Calcium 8.3 L (8.4-10.2) mg/dL Procalcitonin (0.02-0.09) ng/mL 02/17/21 02/17/21 Range/Units 06:40 09:20 WBC (3.8-10.6) k/uL RBC (3.80-5.40) m/uL Hgb (11.4-16.0) gm/dL Hct (34.0-46.0) % RDW (11.5-15.5) % ABG pH 7.32 L (7.35-7.45) ABG pCO2 48 H (35-45) mmHg ABG pO2 122 H (83-108) mmHg ABG Total CO2 26 H (19-24) mmol/L ABG O2 Saturation 99.0 H (94-97) % BUN (7-17) mg/dL Glucose (74-99) mg/dL POC Glucose (mg/dL) 229 H (75-99) mg/dL Calcium (8.4-10.2) mg/dL Procalcitonin (0.02-0.09) ng/mL Microbiology - Last 24 Hours (Table) 02/17/21 06:25 Sputum Culture - Preliminary Sputum Assessment and Plan Plan: Assessment: #1. Acute hypoxic respiratory failure related to acute cardiac arrest, patient was intubated out in the field on 02/13/2021, was weaned and extubated on 02/16/2021 however had to be reintubated on 02/17/2021 for worsening hypoxia, and dyspnea #2. Elevated pro-calcitonin lobe, with possibility of aspiration pneumonia, we'll add cefepime #3. V. fib and PEA out of hospital cardiopulmonary arrest, with 30 pulmonary resuscitation, and return of spontaneous circulation. Patient required defibrillation 5 times, and out in the field intubation #4. Acute anterior wall myocardial infarction, status post stenting of the LAD on 02/13/2021 #5. Altered mental status, likely related to hypoxic encephalopathy, neurology is following #6. History of diabetes mellitus type 2 #7. Hypertension #8. Hyperlipidemia #9. Hypothyroidism #10. Morbid obesity with BMI of 45.3 kg/m #11. Never smoker #12. History of coronary artery disease #13. New onset age of fibrillation #14. History of marijuana smoking Plan: Patient failed BiPAP support, and had to be reintubated early this morning Currently on assist control mode of ventilation with a rate of 18, tidal volume 400, FiO2 of 70% and PEEP of 12 Blood gas has been reviewed Drop FiO2 to 60%, and continue weaning FiO2 to keep O2 sats at or above 90% Patient received a couple doses of IV metoprolol for hypertension, and tachycardia that responded well Maintenance dose of beta blockers per cardiology We will initiate sepsis workup including blood culture and sputum culture Patient will be started on cefepime Reinitiate tube feedings for nutritional support Daily chest x-rays blood gases and basic blood work Daily interruption of sedation for assessment of mental status We'll reevaluate for readiness to wean again tomorrow I performed a history & physical examination of the patient and discussed their management with my nurse practitioner, Ana Tran. I reviewed the nurse practitioner's note and agree with the documented findings and plan of care. Lung sounds are positive for dim breath sounds throughout the lung davalos. The findings and the impression was discussed with the patient. I attest to the documentation by the nurse practitioner. Time with Patient: Greater than 30
[2021-02-17 11:34] LABS: Glucose,Whole Blood 251 mg/dL (75-99)
[2021-02-17] MEDS: TICAGRELOR 90 MG TAB PO SCH ×2 (15:11→20:55)
[2021-02-17] MEDS ORDERED: HYDROmorphone 1 MG/ML 1 ML SYRINGE IVP PRN (15:12)
[2021-02-17 17:08] LABS: Glucose,Whole Blood 265 mg/dL (75-99)
[2021-02-17 17:40] LABS: Glucose,Whole Blood 260 mg/dL (75-99)
[2021-02-17] MEDS: ACETAMINOPHEN IV (For NPO) 1,000 MG in EMPTY BAG 1 BAG IVPB PRN (17:45)
[2021-02-17] MEDS ORDERED: ACETAMINOPHEN IV (For NPO) 1,000 MG in EMPTY BAG 1 BAG IVPB SCH (18:00)
--- NOTE | 2021-02-17 18:10 | P.PN ---
Subjective Progress Note Date: 02/17/21 02/17/2021: Patient apparently developed respiratory distress overnight. Patient's heart rate was going up to 150 and respiration 50/m. BiPAP did not work. Patient was ultimately re-intubated earlier this morning at 6 AM and now on mechanical ventilation. Also on propofol 60 g per 2 g/m. Also on Nimbex 2 mcg/kg/m. Exam limited due to above. 02/16/2021: Patient was seen for a follow-up. Patient was extubated half an hour ago. Patient is off sedation. Appears somewhat sick. But answers and responds appropriately. Please refer to examination below. Objective - Vital Signs Vital signs: Vital Signs Temp 102.1 F H 02/17/21 14:00 Pulse 120 H 02/17/21 17:35 Resp 18 02/17/21 15:18 BP 118/57 02/17/21 15:00 Pulse Ox 95 02/17/21 15:18 Intake & Output 02/16/21 02/17/21 02/17/21 18:59 06:59 18:59 Intake Total 1177.841 729.620 574.443 Output Total 670 675 550 Balance 507.841 54.620 24.443 Weight 130.4 kg 130.4 kg Intake: IV 600 270 140 Sodium Chloride 0.9% 1, 600 270 140 000 ml @ 20 mls/hr IV . Q24H [facility] Rx#:[id number] Intake, IV Titration 409.841 459.620 434.443 Amount ACETAMINOPHEN IV (For NPO 100 ) 1,000 mg In Empty Bag 1 bag @ 400 mls/hr IVPB ONCE ONE Rx#:[id number] Cisatracurium 200 mg In 64.939 Sodium Chloride 0.9% 180 ml @ 1 MCG/KG/MIN 7.824 mls/hr IV .Q24H [facility] Rx#: [id number] Dexmedetomidine/0.9% NaCl 212.641 347.754 (Pmx) 400 mcg In Empty Bag 1 bag @ 0.2 MCG/KG/HR 6.83 mls/hr IV .[id number] [facility] Rx#:[id number] propofoL 1,000 mg In 197.20 11.866 369.504 Empty Bag 1 bag @ Titrate IV .Q0M [facility] Rx#: [id number] Tube Feeding 168 Output: Urine 670 167 550 Other: Voiding Method Indwelling Catheter Indwelling Catheter Indwelling Catheter ABP, PAP, CO, CI - Last Documented Arterial Blood Pressure 136/58 - Exam 02/17/2021: Patient intubated, sedated on high dose propofol 60 g and Nimbex. Exam limited. 02/16/2021: Patient is extubated, appears somewhat restless, turns her head back and forth, but does respond appropriately. Patient is quite alert and awake, slightly encephalopathic. Patient makes eye contact. Patient able to name eyeglasses very well. Her pupils are round and reacting. Extraocular muscles are intact. Face appears symmetric. She appears generalized weak. However she was able to squeeze the hand to 3+ bilaterally, able to lift her arms antigravity, also able to wiggle her feet bilaterally. Patient nodded "no" for headache. No obvious seizure activity. - Labs CBC & Chem 7: 02/17/21 03:08 02/17/21 03:08 Labs: Abnormal Lab Results - Last 24 Hours (Table) 02/16/21 02/17/21 02/17/21 Range/Units 23:34 03:08 03:08 WBC 11.9 H (3.8-10.6) k/uL RBC 3.37 L (3.80-5.40) m/uL Hgb 10.0 L (11.4-16.0) gm/dL Hct 31.6 L (34.0-46.0) % RDW 15.7 H (11.5-15.5) % ABG pH (7.35-7.45) ABG pCO2 (35-45) mmHg ABG pO2 (83-108) mmHg ABG Total CO2 (19-24) mmol/L ABG O2 Saturation (94-97) % BUN 19 H (7-17) mg/dL Glucose 158 H (74-99) mg/dL POC Glucose (mg/dL) 138 H (75-99) mg/dL Calcium 8.3 L (8.4-10.2) mg/dL 02/17/21 02/17/21 02/17/21 Range/Units 06:40 09:20 11:32 WBC (3.8-10.6) k/uL RBC (3.80-5.40) m/uL Hgb (11.4-16.0) gm/dL Hct (34.0-46.0) % RDW (11.5-15.5) % ABG pH 7.32 L (7.35-7.45) ABG pCO2 48 H (35-45) mmHg ABG pO2 122 H (83-108) mmHg ABG Total CO2 26 H (19-24) mmol/L ABG O2 Saturation 99.0 H (94-97) % BUN (7-17) mg/dL Glucose (74-99) mg/dL POC Glucose (mg/dL) 229 H 251 H (75-99) mg/dL Calcium (8.4-10.2) mg/dL 02/17/21 02/17/21 Range/Units 17:07 17:39 WBC (3.8-10.6) k/uL RBC (3.80-5.40) m/uL Hgb (11.4-16.0) gm/dL Hct (34.0-46.0) % RDW (11.5-15.5) % ABG pH (7.35-7.45) ABG pCO2 (35-45) mmHg ABG pO2 (83-108) mmHg ABG Total CO2 (19-24) mmol/L ABG O2 Saturation (94-97) % BUN (7-17) mg/dL Glucose (74-99) mg/dL POC Glucose (mg/dL) 265 H 260 H (75-99) mg/dL Calcium (8.4-10.2) mg/dL Microbiology - Last 24 Hours (Table) 02/17/21 06:25 Sputum Culture - Preliminary Sputum Assessment and Plan Assessment: * Status post cardiac arrest, with the downtime of 32 minutes. Patient was extubated 02/16/2021, and now we intubated this morning 02/17/2021 due to respiratory distress. * Acute STEMI, * New onset atrial fibrillation. * Diabetes * Hypertension * CAD Plan: * Patient is now re-intubated, on sedating and paralyzing agent. Exam is limited. * Computed tomography scan of head revealed degenerative and nonspecific white matter changes are nonspecific. I reviewed computed tomography scan, no signs of acute stroke. No ICB * EEG was abnormal due to background slowing of mild to moderate degree. This is suggestive of generalized cerebral dysfunction as can be seen with toxic metabolic encephalopathy or from diffuse structural brain abnormality. No epileptiform activity was seen. * Medical management as per IM and critical care * Cardiology also on board. * Continue close neuro checks. * Patient started on aspirin 81 mg and Brilinta, also on high dose statins Lipitor 80 mg. * DVT prophylaxis with SCDs. * At present he appears patient to have mainly medical issues. She was doing quite well when she was extubated yesterday and was following commands, appropriate responses. At this time, patient needs continued critical care, IM management. Neurology will follow sporadically/peripherally.
[2021-02-17] MEDS: ATORVASTATIN 80 MG TAB PO SCH (20:55)
[2021-02-17 23:49] LABS: Glucose,Whole Blood 338 mg/dL (75-99)
[2021-02-17] MEDS: SODIUM CHLORIDE 0.9% 1,000 ML IV SCH (23:54)
[2021-02-18] MEDS: IPRATROPIUM-ALBUTEROL 3 ML NEB INHALATION SCH ×6 (01:03→21:33)
[2021-02-18 05:16] LABS: Basophils % (A) 0 %; Eosinophils % (A) 0 %; HGB 10.1 gm/dL (11.4-16.0); Hypochromasia Marked; Lymphocytes # (A) 0.3 k/uL (1.0-4.8); Lymphocytes % (A) 2 %; MCH 29.4 pg (25.0-35.0); MCHC 30.5 g/dL (31.0-37.0); MCV 96.5 fL (80.0-100.0); Mean Platelet Volume 8.1; Monocytes # (A) 0.4 k/uL (0-1.0); Monocytes % (A) 3 %; Neutrophils # (A) 13.3 k/uL (1.3-7.7); Neutrophils % (A) 94 %; Platelet Count 153 k/uL (150-450); RBC 3.42 m/uL (3.80-5.40); RDW 15.6 % (11.5-15.5); WBC 14.1 k/uL (3.8-10.6)
[2021-02-18 05:31] LABS: Albumin 2.6 g/dL (3.5-5.0); Total Protein 5.4 g/dL (6.3-8.2)
[2021-02-18 05:32] LABS: Calcium 7.5 mg/dL (8.4-10.2); Potassium 4.1 mmol/L (3.5-5.1); Total Bilirubin 1.3 mg/dL (0.2-1.3)
[2021-02-18 05:40] LABS: Glucose,Whole Blood 261 mg/dL (75-99)
[2021-02-18] MEDS: LEVOTHYROXINE 100 MCG TAB PO SCH (06:19)
[2021-02-18] MEDS: INSULIN ASPART (NovoLOG) 100 UNIT/ML VIAL SQ SCH ×4 (06:19→23:36)
[2021-02-18 06:29] LABS: ABG Base Excess -1.5 mmol/L; ABG HCO3 27 mmol/L (21-25); ABG PO2 111 mmHg (83-108); ABG TCO2 29 mmol/L (19-24); Allen Test Performed? Yes
[2021-02-18 06:32] LABS: ABG PCO2 75 mmHg (35-45); ABG PH 7.17 (7.35-7.45)
--- NOTE | 2021-02-18 06:35 | XR ---
EXAMINATION TYPE: XR chest 1V portable DATE OF EXAM: 02/18/2021 COMPARISON: 02/17/2021 HISTORY: Tube placement TECHNIQUE: Single frontal view of the chest is obtained. FINDINGS: There is mild pulmonary vascular congestion which is worsened in the interval compared to previous. There is also increased retrocardiac opacity compared to previous. There is no pneumothorax . ET tube approximately 4.6 cm above the oksana. There is a left-sided central venous catheter the tip of which is in the SVC/R junction. There is an NG tube stomach. The osseous structures are intact. IMPRESSION: ET tube 4.6 cm above the oksana. Mild worsening in the acute cardiopulmonary disease as described above.
[2021-02-18] MEDS ORDERED: propofoL 100 ML IV ONE ×3 (08:47→16:49)
[2021-02-18] MEDS: lisinopriL 5 MG TAB PO SCH (09:36)
[2021-02-18] MEDS: CHLORHEXIDINE GLUCONATE 15 ML CUP MUCOUS MEM SCH ×2 (09:45→20:13)
[2021-02-18] MEDS: CEFEPIME 2 GM in SODIUM CHLORIDE 0.9% 100 ML IVPB SCH ×2 (09:45→17:09)
[2021-02-18] MEDS: TICAGRELOR 90 MG TAB PO SCH ×2 (09:46→20:13)
[2021-02-18] MEDS: PANTOPRAZOLE 40 MG/10 ML VIAL IVP SCH (09:46)
[2021-02-18] MEDS: ASPIRIN 81 MG PO SCH (09:46)
--- NOTE | 2021-02-18 10:24 | P.PN ---
Subjective Progress Note Date: 02/18/21 Principal diagnosis: Respiratory failure. 65-year-old female with a history of diabetes, hypothyroidism, hyperlipidemia, hypertension, gastroesophageal reflux disease, and obesity, who was seen in the emergency room, on February 13. She apparently had a witnessed cardiac arrest in front of family members. EMS was called, and ACLS protocol was begun. The patient was noted to be in ventricular fibrillation. She apparently was intubated, and placed on the monitor and found to have ventricular fibrillation, and was defibrillated, a total of 5 times he was given 450 mg of amiodarone. She did apparently have spontaneous circulation briefly upon arrival, but apparently did develop PEA rhythm in the emergency room, and ACLS was continued. The patient was taken to the Care Worker, and found to have a complete occlusion of the LAD. 2 stents replaced, via the right radial approach. The patient came back to the intensive care unit on the ventilator. She is on the volume assist control mode, rate 18, tidal volumes 375, FiO2 100%, and PEEP of 10. Initial gases showed a pO2 of 59, pCO2 47, and a pH is 7.26. These blood gases were done on a rate of 14, and a PEEP of 5. Hence the increase in rate and PEEP. The patient is currently on Toprol fall at 25 mcg/kg/m, and saline at 50 mL an hour. I reviewed her medications at the bedside with the nurse, Rachael. The jac n is to keep her on the ventilator overnight, and work on getting her extubated in the morning. Because of a cardiac arrest, no history could be obtained. The medical history that I noted above, was gleaned from the medications that she takes. They included Requip, Glucophage, micardis HCT, metoprolol, Synthroid, insulin, famotidine, Lipitor, and aspirin. The patient is seen today 02/14/2021 in follow-up in the intensive care unit. She remains intubated, sedated and on the mechanical ventilator. Current settings are assist-control mode at a rate of 18, tidal volume 375, FiO2 40% and a PEEP of 10. Morning blood gases revealed a PaO2 of 159, pCO2 44, pH 7.4 to on 50% FiO2. She is sedated with propofol at 45 mcg/kg/m. 0.9 normal saying at 50 MLS per hour. Chest x-ray reveals good placement of the endotracheal tube and nasogastric tubes. There is no pneumothorax. Some basilar density obscures left hemidiaphragm. Improved aeration in the right lung. Some bibasilar atelectasis. Left-sided rib fractures. Sputum culture pending. White count 20.1. Hemoglobin 12.2. Platelets 205. Sodium 135. Potassium 4.7. Creatinine 0.72. Glucose 238. Urine culture pending. She's been initiated and DuoNeb inhalations. Remains on Brilinta and aspirin. On 02/15/2021 patient seen in follow-up in intensive care unit, she remains intubated, and sedated on mechanical ventilator with assist control mode of ventilation with a rate of 18, tidal, 375, PEEP of 10, and FiO2 of 40%. This morning's blood gas shows pO2 of 86, pCO2 48, and pH of 7.43. 0.9 normal saline entered a 50 ML per hour, Diprivan is at 20 mics per kilo per minute. No tube feedings. She is in sinus mechanism with a rate of 122. Her sedation is being weaned, she failed a sedation holiday yesterday. Right now she has her eyes open, she appears to be slightly tracking with her gaze, however she is not following commands, and she is becoming restless and agitated. She is not on any vasopressor support, no arrhythmias overnight, no acute events. Chest x-ray today shows basilar density at the left hemidiaphragm likely related to atelectasis. Left-sided rib fractures, stable exam. Brain CT from yesterday shows degenerative and nonspecific white matter changes, and MRI was recommended to exclude acute ischemia. No acute hemorrhage or mass effect. Neurology is following, EEG has been completed showing background slowing of mild to moderate degree suggestive of generalized cerebral dysfunction as can be seen with toxic metabolic encephalopathy, no epileptiform activity. Today's labs have been reviewed with blood cell count is improving and is down to 14.3, hemoglobin is 11.6, electrolytes and renal profile are within normal limits, urinalysis showed turbid urine, with 1+ protein, 2+ glucose, small leuks, but no definite sign of infection, urine drug screen showed benzodiazepines and marijuana. COVID-19 PCR was negative. Sputum culture has been sent showing no PMNs, moderate gram-posi tive cocci On 02/16/2021 patient seen in follow-up in the intensive care unit, she remains intubated, sedated on assist control mode of ventilation with a rate of 18, tidal vital 375, FiO2 40% and PEEP of 10. Her peak air pressures 27, and her static pressure is 17. Today's chest x-ray shows perihilar opacities with possible slight increase, and possible mild pulmonary vascular congestion. The re is a small left pleural effusion with atelectasis in the retrocardiac region. Her EEG showed background slowing of mild to moderate degree, and generalized cerebral dysfunction as can be seen with toxic metabolic encephalopathy, no epileptiform activity. Brain CT showed degenerative nonspecific white matter changes. Blood gas today shows pO2 of 83, pCO2 45, and pH of 7.48. Her white blood cell count is improving, is down to 15.8, hemoglobin is 11.3, sodium is 135, the rest of electrolytes and renal profile are unremarkable. Patient is currently on 0.0 cm with a 50 ML per hour and debridement is a 40 mics per kilo per minute. She is in sinus mechanism, with a rate of 12. Yesterday patient tolerated sedation holiday, and she tolerated a brief CPAP trial, however weaning parameters were suboptimal, and patient was not ready to extubate and she was placed on assist-control mode of ventilation and received a day. She's had no acute events overnight. She is having some colored secretions suctioned out of her ET tube. She is tolerating her tube feedings, she is on vital 1.2 at a rate of 28. On 02/17/2021 patient seen in follow-up in intensive care unit. She was weaned and extubated from mechanical ventilator last night, however through the night of her breathing had worsened, and exhalation had to be placed on BiPAP support. Early this morning she had failed the BiPAP support, she was very dyspneic, tachycardic, and she had to be reintubated at 6:00 this morning. She is currently on assist control mode of ventilation with a rate of 18, tidal vital 400, FiO2 of 70% and PEEP of 12. She is currently unemployed and was seen at a rate of 29 per hour, Diprivan is a 60 mics per minute. And patient will also need to be paralyzed. Chest x-ray from this morning showed low lung volumes with bibasilar opacities. Patient was still quite tachycardic but in sinus mechanism, and hypertensive, she was given 5 mg of Lopressor IV push with good response, she is less tachycardic and blood pressure has improved. Patient is already on maintenance dose Lopressor 50 mg twice daily. Cardiology is following. The rest of her blood work was reviewed showing white blood cell count of 11.9, hemoglobin of 10, electrolytes are within normal limits, BUN of 19 and creatinine 0.74. Pro-calcitonin level was elevated at 1.37, and patient will be started on cefepime for empiric antibiotic coverage, sputum culture will be sent. Blood culture has also been ordered. Patient is on Protonix for GI prophylaxis, we will add Lovenox for DVT prophylaxis. Progress note dated 02/18/2021. 65-year-old female again seen in room 261. The patient was extubated from mechanical ventilation, on February 16. Unfortunately, on the morning of the , she was reintubated. The patient remains on the mechanical ventilator. She is on the volume assist control mode, rate 18, tidal volume 400, FiO2 85%, and PEEP of 12. Arterial blood gases show pO2 111, CO2 of 75, and pH is 7.17. The blood gases were done on 100%. Hence, the FiO2 was reduced down to 85%. The patient remains on propofol at 40 mcg/kg/m and Nimbex at 1 mcg/kg/m. She's also getting Dilaudid when necessary. The patient's on saline at 50 mL an hour, and receiving tube feedings with vital high protein at 24 mL an hour, which is goal. The patient was thought to have possibly aspirated, and remains on cefepime. White count 14.1, hemoglobin 10.1, hematocrit 33.0, and platelet count 153,000. Sodium potassium chloride CO2 all normal. Anion gap normal. BUN 35, with a creatinine of 1.29. Chest x-ray shows mild pulmonary vascular congestion, and increased opacity or infiltrate particularly in the right mid lung. Objective - Vital Signs Vital signs: Vital Signs Temp 99.6 F 02/18/21 04:00 Pulse 126 H 02/18/21 08:37 Resp 18 02/18/21 07:00 BP 95/49 02/18/21 01:00 Pulse Ox 95 02/18/21 07:00 Intake & Output 12/02/18/21 02/18/21 18:59 06:59 18:59 Intake Total 335.542 3114.375 174 Output Total 800 285 30 Balance -25.576 1155.375 144 Weight 130.4 kg Intake: IV 220 310 50 Sodium Chloride 0.9% 1, 220 310 50 000 ml @ 50 mls/hr IV . Q20H ADRIANA Rx#:[id number] Intake, IV Titration 506.424 506.375 100 Amount Cisatracurium 200 mg In 64.939 115.469 Sodium Chloride 0.9% 180 ml @ 1 MCG/KG/MIN 7.824 mls/hr IV .Q24H ADRIANA Rx#: [id number] propofoL 1,000 mg In 441.485 390.906 100 Empty Bag 1 bag @ Titrate IV .Q0M ADRIANA Rx#: [id number] Tube Feeding 48 264 24 Other 360 Output: Urine 800 285 30 Other: Voiding Method Indwelling Catheter Indwelling Catheter ABP, PAP, CO, CI - Last Documented Arterial Blood Pressure 103/34 - Exam No acute distress, sedated and paralyzed, with an orally placed endotracheal tube and NG tube. HEENT examination is grossly unremarkable. Neck supple. Full range of motion. No adenopathy thyromegaly or neck vein distention. Cardiovascular examination reveals regular rhythm rate. S1-S2 normal. No S3 or S4. No discernible murmur noted. Heart sounds are distant. Heart rates 126 bpm. It is regular. Lungs reveal coarse bilateral rhonchi and bilateral crackles. Breath sounds equal bilaterally. No wheezes. Abdomen soft, with bowel sounds. Extremities are intact. No cyanosis or clubbing. Mild edema present. Skin is without rash or lesion. Neurologic examination cannot be adequately assessed as the patient's currently sedated and paralyzed. - Labs CBC & Chem 7: 02/18/21 04:40 02/18/21 04:40 Labs: Abnormal Lab Results - Last 24 Hours (Table) 02/17/21 02/17/21 02/17/21 Range/Units 11:32 17:07 17:39 WBC (3.8-10.6) k/uL RBC (3.80-5.40) m/uL Hgb (11.4-16.0) gm/dL Hct (34.0-46.0) % MCHC (31.0-37.0) g/dL RDW (11.5-15.5) % Neutrophils # (1.3-7.7) k/uL Lymphocytes # (1.0-4.8) k/uL ABG pH (7.35-7.45) ABG pCO2 (35-45) mmHg ABG pO2 (83-108) mmHg ABG HCO3 (21-25) mmol/L ABG Total CO2 (19-24) mmol/L ABG O2 Saturation (94-97) % BUN (7-17) mg/dL Creatinine (0.52-1.04) mg/dL Glucose (74-99) mg/dL POC Glucose (mg/dL) 251 H 265 H 260 H (75-99) mg/dL Calcium (8.4-10.2) mg/dL AST (14-36) U/L Total Protein (6.3-8.2) g/dL Albumin (3.5-5.0) g/dL 02/17/21 02/18/21 02/18/21 Range/Units 23:45 04:40 04:40 WBC 14.1 H (3.8-10.6) k/uL RBC 3.42 L (3.80-5.40) m/uL Hgb 10.1 L (11.4-16.0) gm/dL Hct 33.0 L (34.0-46.0) % MCHC 30.5 L (31.0-37.0) g/dL RDW 15.6 H (11.5-15.5) % Neutrophils # 13.3 H (1.3-7.7) k/uL Lymphocytes # 0.3 L (1.0-4.8) k/uL ABG pH (7.35-7.45) ABG pCO2 (35-45) mmHg ABG pO2 (83-108) mmHg ABG HCO3 (21-25) mmol/L ABG Total CO2 (19-24) mmol/L ABG O2 Saturation (94-97) % BUN 35 H (7-17) mg/dL Creatinine 1.29 H (0.52-1.04) mg/dL Glucose 311 H (74-99) mg/dL POC Glucose (mg/dL) 338 H (75-99) mg/dL Calcium 7.5 L (8.4-10.2) mg/dL AST 51 H (14-36) U/L Total Protein 5.4 L (6.3-8.2) g/dL Albumin 2.6 L (3.5-5.0) g/dL 02/18/21 02/18/21 Range/Units 05:39 05:40 WBC (3.8-10.6) k/uL RBC (3.80-5.40) m/uL Hgb (11.4-16.0) gm/dL Hct (34.0-46.0) % MCHC (31.0-37.0) g/dL RDW (11.5-15.5) % Neutrophils # (1.3-7.7) k/uL Lymphocytes # (1.0-4.8) k/uL ABG pH 7.17 L* (7.35-7.45) ABG pCO2 75 H* (35-45) mmHg ABG pO2 111 H (83-108) mmHg ABG HCO3 27 H (21-25) mmol/L ABG Total CO2 29 H (19-24) mmol/L ABG O2 Saturation 98.0 H (94-97) % BUN (7-17) mg/dL Creatinine (0.52-1.04) mg/dL Glucose (74-99) mg/dL POC Glucose (mg/dL) 261 H (75-99) mg/dL Calcium (8.4-10.2) mg/dL AST (14-36) U/L Total Protein (6.3-8.2) g/dL Albumin (3.5-5.0) g/dL Microbiology - Last 24 Hours (Table) 02/17/21 12:10 Blood Culture - Final Blood 02/17/21 06:25 Gram Stain - Preliminary Sputum Sputum Culture - Preliminary Assessment and Plan Assessment: [id number] cardiopulmonary arrest, with cardiopulmonary resuscitation, and eventual return of spontaneous circulation. The patient appeared to be intubated in the field, and defibrillated 5 times. She did have return of s pontaneous circulation, but was also found to have pulseless electrical activity (PEA). Status post stent placement, to the 100% occluded LAD, via the right radial approach. Routine postoperative ventilator management, status post intubation on February 13, extubation on 02/16/2021, and reintubation on 02/17/2021. History of diabetes mellitus. History of hypothyroidism. History of hyperlipidemia. History of hypertension. Morbid obesity. History of gastroesophageal reflux disease. New-onset atrial fibrillation. Plan: Plan dated 02/13/2021. The patient will be maintained on mechanical ventilator overnight. We'll attempt to get her weaned and extubated tomorrow. Currently, the ventilator settings were changed to increase her rate up from 14 up to 18, and increase the PEEP from 5 up to 10 cm water. This will hopefully improve oxygenation, reduces CO2, and raise the PTH. The patient's on propofol at 25 mcg/kg/m. The patient's receiving saline at 50 mL an hour. Chest x-rays consistent with flash pulmonary edema. I've asked the respiratory therapist to start the patient on DuoNeb, every 4 hours [id number]. Additional recommendations and suggestions are forthcoming. Prognosis is guarded. Plan dated 02/18/2021. The patient was initially extubated on February 16, but unfortunately, required reintubation on February 17. The patient's vent settings are change. The rate is increased to 24, and the PEEP is increased to 15. We will attempt to wean the FiO2. We will also try to wean the patient off the Nimbex. The patient remains on cefepime empirically, for possible aspiration pneumonia. The patient's overall prognosis remains very guarded. We will continue to follow make recommendations where appropriate. Prognosis is guarded. Thus far, microbiology is negative. X-ray, labs, medications are reviewed. The patient will have a chest x-ray in the morning, as well as a CBC, basic metabolic profile, and blood gas. Time with Patient: Greater than 30
[2021-02-18] MEDS: NOREPINEPHRINE 4 MG in SODIUM CHLORIDE 0.9% 250 ML IV SCH ×3 (10:49→22:17)
[2021-02-18] MEDS: METOPROLOL TARTRATE 50 MG TAB PO SCH ×2 (11:13→20:13)
--- NOTE | 2021-02-18 11:26 | PN ---
PROGRESS NOTE Mrs. Hale is a 65-year-old female who presented with an acute anterior wall myocardial infarction complicated by cardiac arrest and ventricular fibrillation and ventricular tachycardia requiring CPR. She underwent stenting of the LAD. Her echocardiogram revealed mild impairment of left ventricular systolic function. She was extubated but had to be reintubated and appears to have aspiration pneumonia. She remains intubated. Her blood pressure is on the lower side. She is sedated. She is in sinus mechanism with episode of sinus tachycardia. She continues to be at this time on aspirin once a day, Lipitor 80 mg daily, metoprolol tartrate 50 mg twice a day, lisinopril 5 mg twice a day, Aldactone 25 mg daily and Brilinta 90 mg twice a day in addition to her antibiotics. PHYSICAL EXAMINATION: Blood pressure running in the low 100s with a blood pressure in the 110s. LUNGS: With crackles anteriorly. HEART: Tachycardic. S1, S2. No S3, with a no gallop. ABDOMEN: Soft, obese. EXTREMITIES: No edema. LAB DATA: Lab data revealed BUN and creatinine 35 and 1.29. Her pH 7.17, pCO2 of 75, PO2 111. Her hemoglobin is 10.1, white blood cells 14.1. Her chest x-ray showed increase in the infiltrate and congestion. IMPRESSION: 1. Respiratory failure with possible aspiration pneumonia. 2. Cardiopulmonary arrest following acute anterior myocardial infarction. 3. Status post stenting of the LAD. 4. Worsening renal function. 5. Anoxic encephalopathy. 6. History of diabetes. 7. Hypertension. 8. Hyperlipidemia. 9. Obesity. RECOMMENDATIONS: From the cardiac standpoint, I will hold her Aldactone and her lisinopril at this time. Will continue the rest of her medical regimen. Continue supportive care and depending on her progress further recommendations will be made. Unfortunately prognosis remains guarded. MMODL / IJN: [id number] /
[2021-02-18 11:34] LABS: Glucose,Whole Blood 368 mg/dL (75-99)
[2021-02-18] MEDS: CISATRACURIUM 200 MG in SODIUM CHLORIDE 0.9% 180 ML IV SCH (17:08)
[2021-02-18 17:41] LABS: Glucose,Whole Blood 334 mg/dL (75-99)
[2021-02-18] MEDS ORDERED: VANCOMYCIN IV PER PHARMACY 1 EACH MISC MISCELLANE PRN (17:51)
[2021-02-18] MEDS: VANCOMYCIN 2,500 MG in SODIUM CHLORIDE 0.9% 500 ML 500 ML IVPB SCH (18:55)
[2021-02-18] MEDS: ATORVASTATIN 80 MG TAB PO SCH (20:13)
--- NOTE | 2021-02-18 22:15 | P.PN ---
Subjective This is a pleasant 65 years old female with past medical history of Coronary Artery Disease , Diabetes Mellitus, GERD, Hypertension, hypothyroidism. She is a patient of Dr. Brambila Patient presents with unresponsiveness and and cardiac arrest. CPR was ongoing through EMS, patient was found in ventricular fibrillation per EMS, Pt was given 5 epi, 5 shocks and 450mg of Amniodarone. Pt did have ROSC for a few minutes but when arriving to ER no pulse present. In the emergency room patient got intubated and placed on mechanical ventilation. Initial vitals showed temperature 97.3, heart rate 79, breathing rate 16, blood pressure 118/71 and 92/62 and she was saturating 96% on mechanical ventilation Labs were showing leukocytosis of 20.5 K. INR 2.7 PH 7.2, pCO2 47 and pO2 59. Sodium 137, low potassium 2.8, normal creatinine 0.9. Glucose elevated to 65. Liver enzymes slightly elevated with AST 83 and ALT 36. Trending up troponin 0.02, 9.4 and 23.9. Coronavirus chest x-ray: Status post intubation. There may be underlying pulmonary edema or pneumonia. Repeat fracture noted on the left Nondetected. EKG showing ST elevation in anterior septal leads V1 to V4 Patient was taken to emergent cardiac cath and she underwent cardiac cathete rization with PCI to the totally occluded proximal LAD. After the procedure patient was placed on aspirin, Brillinta ,and beta beni, GONZALEZ inhibitor and statin Today patient is still intubated in the ICU, and on mechanical ventilation. She has PEEP of 10, FiO2 of 40%, tidal volume 375, she has sinus rhythm at 90 bpm, she has a Mcneil and OG tube. She has normal saline running at 50 mL per hour 02/15/2021 ICU intubated and sedated with pulmonary/critical care team followed closely Patient failed sedation trial yesterday and today. Neurology team on the case PEG showing no epileptiform discharge Ejection fraction is 50-55% Chest x-ray no change from yesterday Labs reviewed, WBC down to 14 K, INR down to normal at 1.5 Patient remains on aspirin and Brilinta Continue with gentle hydration, lisinopril, metoprolol and Aldactone with cardiology and nephrology followed the patient closely 02/16/2021 Patient remains in the ICU intubated and sedated. She is undergoing sedation holiday today as well with possible extubation that are on. She is developing fever of 100.4, her WBCs 15 K. EEG showing no epileptiform discharge. Chest x-ray showing increased perihilar opacity. There are sputum culture, proteincalcitonin. Patient is kept on aspirin and Brilinta and gentle hydration. 02/17/2021 Yesterday patient got extubated and she was doing relatively well until during the night when her respiratory status Worsened and by the morning she has to be intubated again for tachypnea and tachycardia and now she is again on mechanical ventilation. Also patient is a spiking a fever and 102 most likely secondary to pneumonia and patient was started on cefepime with culture has been requested from blood and sputum. Objective - Vital Signs Vital signs: Vital Signs Temp 102.9 F H 02/17/21 08:00 Pulse 103 H 02/17/21 12:00 Resp 18 02/17/21 12:00 BP 118/57 02/17/21 12:00 Pulse Ox 97 02/17/21 12:00 Intake & Output 02/16/21 02/17/21 02/17/21 18:59 06:59 18:59 Intake Total 1177.841 729.620 248.134 Output Total 670 675 325 Balance 507.841 54.620 -76.866 Weight 130.4 kg 130.4 kg Intake: IV 600 270 60 Sodium Chloride 0.9% 1, 600 270 60 000 ml @ 20 mls/hr IV . Q24H [facility] Rx#:[id number] Intake, IV Titration 409.841 459.620 188.134 Amount ACETAMINOPHEN IV (For NPO 100 ) 1,000 mg In Empty Bag 1 bag @ 400 mls/hr IVPB ONCE ONE Rx#:[id number] Dexmedetomidine/0.9% NaCl 212.641 347.754 (Pmx) 400 mcg In Empty Bag 1 bag @ 0.2 MCG/KG/HR 6.83 mls/hr IV [id number] ADRIANA Rx#:[id number] propofoL 1,000 mg In 197.20 11.866 188.134 Empty Bag 1 bag @ Titrate IV .Q0M ADRIANA Rx#: [id number] Tube Feeding 168 Output: Urine 670 675 325 Other: Voiding Method Indwelling Catheter Indwelling Catheter ABP, PAP, CO, CI - Last Documented Arterial Blood Pressure 120/50 - Exam -GENERAL: The patient is sedated and intubated, not in any acute distress. morbidly obese HEENT: Pupils are round and equally reacting to light. EOMI. No scleral icterus. No conjunctival pallor. Normocephalic, atraumatic. No pharyngeal erythema. No th yromegaly. CARDIOVASCULAR: S1 and S2 present. No murmurs, rubs, or gallops. PULMONARY: Chest is clear to auscultation, no wheezing. ABDOMEN: Soft, nontender, nondistended, normoactive bowel sounds. No palpable organomegaly. MUSCULOSKELETAL: No joint swelling or deformity. EXTREMITIES: No cyanosis, clubbing, or pedal edema. NEUROLOGICAL: Gross neurological examination did not reveal any focal deficits. SKIN: No rashes. no petechiae. - Labs CBC & Chem 7: 02/18/21 04:40 02/18/21 04:40 Labs: Abnormal Lab Results - Last 24 Hours (Table) 02/16/21 02/16/21 02/16/21 Range/Units 04:27 17:52 23:34 WBC (3.8-10.6) k/uL RBC (3.80-5.40) m/uL Hgb (11.4-16.0) gm/dL Hct (34.0-46.0) % RDW (11.5-15.5) % ABG pH (7.35-7.45) ABG pCO2 (35-45) mmHg ABG pO2 (83-108) mmHg ABG Total CO2 (19-24) mmol/L ABG O2 Saturation (94-97) % BUN (7-17) mg/dL Glucose (74-99) mg/dL POC Glucose (mg/dL) 186 H 138 H (75-99) mg/dL Calcium (8.4-10.2) mg/dL Procalcitonin 1.37 H (0.02-0.09) ng/mL 02/17/21 02/17/21 02/17/21 Range/Units 03:08 03:08 06:40 WBC 11.9 H (3.8-10.6) k/uL RBC 3.37 L (3.80-5.40) m/uL Hgb 10.0 L (11.4-16.0) gm/dL Hct 31.6 L (34.0-46.0) % RDW 15.7 H (11.5-15.5) % ABG pH (7.35-7.45) ABG pCO2 (35-45) mmHg ABG pO2 (83-108) mmHg ABG Total CO2 (19-24) mmol/L ABG O2 Saturation (94-97) % BUN 19 H (7-17) mg/dL Glucose 158 H (74-99) mg/dL POC Glucose (mg/dL) 229 H (75-99) mg/dL Calcium 8.3 L (8.4-10.2) mg/dL Procalcitonin (0.02-0.09) ng/mL 02/17/21 02/17/21 Range/Units 09:20 11:32 WBC (3.8-10.6) k/uL RBC (3.80-5.40) m/uL Hgb (11.4-16.0) gm/dL Hct (34.0-46.0) % RDW (11.5-15.5) % ABG pH 7.32 L (7.35-7.45) ABG pCO2 48 H (35-45) mmHg ABG pO2 122 H (83-108) mmHg ABG Total CO2 26 H (19-24) mmol/L ABG O2 Saturation 99.0 H (94-97) % BUN (7-17) mg/dL Glucose (74-99) mg/dL POC Glucose (mg/dL) 251 H (75-99) mg/dL Calcium (8.4-10.2) mg/dL Procalcitonin (0.02-0.09) ng/mL Microbiology - Last 24 Hours (Table) 02/17/21 06:25 Sputum Culture - Preliminary Sputum Assessment and Plan Assessment: Acute anteroseptal STEMI Cardiac arrest, status post ventricular fibrillation status post CPR and return of circulation Acute hypoxic respiratory failure needing intubation and mechanical ventilation Sepsis secondary to pneumonia with fever and leukocytosis Metabolic acidosis Possible pulmonary edema Leukocytosis, secondary to above Left fracture secondary to CPR Coagulopathy with INR 2.7 upon admission, resolved Hypertension Hypothyroidism Diabetes mellitus History of GERD History of coronary artery disease Morbidly obese. BMI 45.8 Plan: This is a 65 years old female who presents with STEMI and cardiac arrest status post CPR and intubation, underwent cardiac cath and PCI to LAD Continue with aspirin, brillinta , beta beni, statin and GONZALEZ inhibitor Continue with Intubation and mechanical ventilation with pulmonary/critical care team consult with possible extubation. Pulmonary team Patient is started on cefepime. Follow-up culture results Rn Mds on the case Neurologist consulted Labs and medication were reviewed.. Continue same treatment. Continue with symptomatic treatment. Resume home medication. Monitor lytes and vitals. DVT and GI prophylaxis. Further recommendations as per clinical course of the patient DVT prophylaxis: Aspirin and brillinta GI Prophylaxis: Pepcid PT/OT: Pending Prognosis is guarded
[2021-02-18] MEDS ORDERED: SODIUM CHLORIDE 0.9% 1,000 ML IV ONE (22:27)
--- NOTE | 2021-02-18 22:31 | P.PN ---
Subjective This is a pleasant 65 years old female with past medical history of Coronary Artery Disease , Diabetes Mellitus, GERD, Hypertension, hypothyroidism. She is a patient of Dr. Brambila Patient presents with unresponsiveness and and cardiac arrest. CPR was ongoing through EMS, patient was found in ventricular fibrillation per EMS, Pt was given 5 epi, 5 shocks and 450mg of Amniodarone. Pt did have ROSC for a few minutes but when arriving to ER no pulse present. In the emergency room patient got intubated and placed on mechanical ventilation. Initial vitals showed temperature 97.3, heart rate 79, breathing rate 16, blood pressure 118/71 and 92/62 and she was saturating 96% on mechanical ventilation Labs were showing leukocytosis of 20.5 K. INR 2.7 PH 7.2, pCO2 47 and pO2 59. Sodium 137, low potassium 2.8, normal creatinine 0.9. Glucose elevated to 65. Liver enzymes slightly elevated with AST 83 and ALT 36. Trending up troponin 0.02, 9.4 and 23.9. Coronavirus chest x-ray: Status post intubation. There may be underlying pulmonary edema or pneumonia. Repeat fracture noted on the left Nondetected. EKG showing ST elevation in anterior septal leads V1 to V4 Patient was taken to emergent cardiac cath and she underwent cardiac cathete rization with PCI to the totally occluded proximal LAD. After the procedure patient was placed on aspirin, Brillinta ,and beta beni, GONZALEZ inhibitor and statin Today patient is still intubated in the ICU, and on mechanical ventilation. She has PEEP of 10, FiO2 of 40%, tidal volume 375, she has sinus rhythm at 90 bpm, she has a Mcneil and OG tube. She has normal saline running at 50 mL per hour 02/15/2021 ICU intubated and sedated with pulmonary/critical care team followed closely Patient failed sedation trial yesterday and today. Neurology team on the case PEG showing no epileptiform discharge Ejection fraction is 50-55% Chest x-ray no change from yesterday Labs reviewed, WBC down to 14 K, INR down to normal at 1.5 Patient remains on aspirin and Brilinta Continue with gentle hydration, lisinopril, metoprolol and Aldactone with cardiology and nephrology followed the patient closely 02/16/2021 Patient remains in the ICU intubated and sedated. She is undergoing sedation holiday today as well with possible extubation that are on. She is developing fever of 100.4, her WBCs 15 K. EEG showing no epileptiform discharge. Chest x-ray showing increased perihilar opacity. There are sputum culture, proteincalcitonin. Patient is kept on aspirin and Brilinta and gentle hydration. 02/17/2021 Yesterday patient got extubated and she was doing relatively well until during the night when her respiratory status Worsened and by the morning she has to be intubated again for tachypnea and tachycardia and now she is again on mechanical ventilation. Also patient is a spiking a fever and 102 most likely secondary to pneumonia and patient was started on cefepime with culture has been requested from blood and sputum. 02/18/2021 Today patient still intubated and sedated, she still on mechanical ventilation. With pulmonary/critical care team monitor her closely and following her She is developing pneumonia with sepsis status progressed into septic shock, blood culture and sputum culture are growing staph aureus pending final culture results patient was started on IV vancomycin as well as cefepime. her blood pressure started dropping and she needed levothroid, her creatinine trending up and she is developing oliguria as per last hour she made only 5 ml/h when i checked with the night nurse. therefore 1 l liter of bolus is provided. her sugar is elevated more than 300 and if this not improving she might need to be started on insulin drip. her leukocytosis is at 14 k, creatinine trending up to 1.2. she still has a fever of 102 today. Remains on aspirin and Brilinta, pulmonary/critical care team and cardiology teams on the case Objective - Vital Signs Vital signs: Vital Signs Temp 102.1 F H 02/18/21 12:00 Pulse 112 H 02/18/21 13:00 Resp 24 02/18/21 12:00 BP 95/49 02/18/21 01:00 Pulse Ox 97 02/18/21 12:00 Intake & Output 02/17/21 02/18/21 02/18/21 18:59 06:59 18:59 Intake Total 496.626 4179.375 914.015 Output Total 800 285 55 Balance -25.576 1155.375 859.015 Weight 130.4 kg 136.6 kg Intake: IV 220 310 400 Cefepime 2 gm In Sodium 100 Chloride 0.9% 100 ml @ 25 mls/hr IVPB Q8HR [facility] Rx# :[id number] Sodium Chloride 0.9% 1, 220 310 300 000 ml @ 50 mls/hr IV . Q20H [facility] Rx#:[id number] Intake, IV Titration 506.424 506.375 130.015 Amount Cisatracurium 200 mg In 64.939 115.469 Sodium Chloride 0.9% 180 ml @ 1 MCG/KG/MIN 7.824 mls/hr IV .Q24H [facility] Rx#: [id number] Norepinephrine 4 mg In 16.975 Sodium Chloride 0.9% 250 ml @ 0.05 MCG/KG/MIN 24. 841 mls/hr IV .[id number] [facility] Rx#:[id number] propofoL 1,000 mg In 441.485 390.906 113.04 Empty Bag 1 bag @ Titrate IV .Q0M [facility] Rx#: [id number] Tube Feeding 48 264 144 Other 360 240 Output: Urine 800 285 55 Other: Voiding Method Indwelling Catheter Indwelling Catheter Indwelling Catheter ABP, PAP, CO, CI - Last Documented Arterial Blood Pressure 129/46 - Exam -GENERAL: The patient is sedated and intubated, not in any acute distress. morbidly obese HEENT: Pupils are round and equally reacting to light. EOMI. No scleral icterus. No conjunctival pallor. Normocephalic, atraumatic. No pharyngeal erythema. No thyromegaly. CARDIOVASCULAR: S1 and S2 present. No murmurs, rubs, or gallops. PULMONARY: Chest is clear to auscultation, no wheezing. ABDOMEN: Soft, nontender, nondistended, normoactive bowel sounds. No palpable organomegaly. MUSCULOSKELETAL: No joint swelling or deformity. EXTREMITIES: No cyanosis, clubbing, or pedal edema. NEUROLOGICAL: Gross neurological examination did not reveal any focal deficits. SKIN: No rashes. no petechiae. - Labs CBC & Chem 7: 02/18/21 04:40 02/18/21 04:40 Labs: Abnormal Lab Results - Last 24 Hours (Table) 02/17/21 02/17/21 02/17/21 Range/Units 17:07 17:39 23:45 WBC (3.8-10.6) k/uL RBC (3.80-5.40) m/uL Hgb (11.4-16.0) gm/dL Hct (34.0-46.0) % MCHC (31.0-37.0) g/dL RDW (11.5-15.5) % Neutrophils # (1.3-7.7) k/uL Lymphocytes # (1.0-4.8) k/uL ABG pH (7.35-7.45) ABG pCO2 (35-45) mmHg ABG pO2 (83-108) mmHg ABG HCO3 (21-25) mmol/L ABG Total CO2 (19-24) mmol/L ABG O2 Saturation (94-97) % BUN (7-17) mg/dL Creatinine (0.52-1.04) mg/dL Glucose (74-99) mg/dL POC Glucose (mg/dL) 265 H 260 H 338 H (75-99) mg/dL Calcium (8.4-10.2) mg/dL AST (14-36) U/L Total Protein (6.3-8.2) g/dL Albumin (3.5-5.0) g/dL 02/18/21 02/18/21 02/18/21 Range/Units 04:40 04:40 05:39 WBC 14.1 H (3.8-10.6) k/uL RBC 3.42 L (3.80-5.40) m/uL Hgb 10.1 L (11.4-16.0) gm/dL Hct 33.0 L (34.0-46.0) % MCHC 30.5 L (31.0-37.0) g/dL RDW 15.6 H (11.5-15.5) % Neutrophils # 13.3 H (1.3-7.7) k/uL Lymphocytes # 0.3 L (1.0-4.8) k/uL ABG pH (7.35-7.45) ABG pCO2 (35-45) mmHg ABG pO2 (83-108) mmHg ABG HCO3 (21-25) mmol/L ABG Total CO2 (19-24) mmol/L ABG O2 Saturation (94-97) % BUN 35 H (7-17) mg/dL Creatinine 1.29 H (0.52-1.04) mg/dL Glucose 311 H (74-99) mg/dL POC Glucose (mg/dL) 261 H (75-99) mg/dL Calcium 7.5 L (8.4-10.2) mg/dL AST 51 H (14-36) U/L Total Protein 5.4 L (6.3-8.2) g/dL Albumin 2.6 L (3.5-5.0) g/dL 02/18/21 02/18/21 Range/Units 05:40 11:33 WBC (3.8-10.6) k/uL RBC (3.80-5.40) m/uL Hgb (11.4-16.0) gm/dL Hct (34.0-46.0) % MCHC (31.0-37.0) g/dL RDW (11.5-15.5) % Neutrophils # (1.3-7.7) k/uL Lymphocytes # (1.0-4.8) k/uL ABG pH 7.17 L* (7.35-7.45) ABG pCO2 75 H* (35-45) mmHg ABG pO2 111 H (83-108) mmHg ABG HCO3 27 H (21-25) mmol/L ABG Total CO2 29 H (19-24) mmol/L ABG O2 Saturation 98.0 H (94-97) % BUN (7-17) mg/dL Creatinine (0.52-1.04) mg/dL Glucose (74-99) mg/dL POC Glucose (mg/dL) 368 H (75-99) mg/dL Calcium (8.4-10.2) mg/dL AST (14-36) U/L Total Protein (6.3-8.2) g/dL Albumin (3.5-5.0) g/dL Microbiology - Last 24 Hours (Table) 02/17/21 12:10 Blood Culture Gram Stain - Preliminary Blood 02/17/21 06:25 Gram Stain - Preliminary Sputum Sputum Culture - Preliminary Presumptive Staph aureus 02/17/21 12:10 Blood Culture - Final Blood Assessment and Plan Assessment: Acute anteroseptal STEMI Cardiac arrest, status post ventricular fibrillation status post CPR and return of circulation Acute hypoxic respiratory failure needing intubation and mechanical ventilation Sepsis secondary to pneumonia with fever and leukocytosis, developing into septic shock Metabolic acidosis Possible pulmonary edema Leukocytosis, secondary to above Left fracture secondary to CPR Coagulopathy with INR 2.7 upon admission, resolved Hypertension Hypothyroidism Diabetes mellitus History of GERD History of coronary artery disease Morbidly obese. BMI 45.8 Plan: This is a 65 years old female who presents with STEMI and cardiac arrest status post CPR and intubation, underwent cardiac cath and PCI to LAD Continue with aspirin, brillinta , beta beni, statin and GONZALEZ inhibitor Continue with Intubation and mechanical ventilation with pulmonary/critical care team consult with possible extubation. Pulmonary team Patient is started on cefepime. F I vancomycin added, ollow-up culture results Monitor creatinine and urine output Script Manager on the case Neurologist consulted Labs and medication were reviewed.. Continue same treatment. Continue with symptomatic treatment. Resume home medication. Monitor lytes and vitals. DVT and GI prophylaxis. Further recommendations as per clinical course of the patient DVT prophylaxis: Aspirin and brillinta GI Prophylaxis: Pepcid PT/OT: Pending Prognosis is guarded
[2021-02-18 23:17] LABS: Glucose,Whole Blood 306 mg/dL (75-99)
[2021-02-19 00:48] LABS: Glucose,Whole Blood 303 mg/dL (75-99)
[2021-02-19] MEDS: IPRATROPIUM-ALBUTEROL 3 ML NEB INHALATION SCH ×7 (00:55→23:19)
[2021-02-19] MEDS: INSULIN REGULAR 100 UNIT in SODIUM CHLORIDE 0.9% 100 ML IV SCH ×2 (01:10→23:52)
[2021-02-19] MEDS: NOREPINEPHRINE 4 MG in SODIUM CHLORIDE 0.9% 250 ML IV SCH ×4 (01:41→07:54)
[2021-02-19 02:09] LABS: Glucose,Whole Blood 253 mg/dL (75-99)
[2021-02-19 02:52] LABS: Glucose,Whole Blood 241 mg/dL (75-99)
[2021-02-19 03:17] LABS: Anisocytosis Slight; Basophils % (A) 0 %; Eosinophils % (A) 0 %; HCT 32.5 % (34.0-46.0); HGB 9.7 gm/dL (11.4-16.0); Hypochromasia Marked; Lymphocytes # (A) 0.6 k/uL (1.0-4.8); Lymphocytes % (A) 4 %; MCH 28.9 pg (25.0-35.0); MCHC 29.9 g/dL (31.0-37.0); MCV 96.8 fL (80.0-100.0); Mean Platelet Volume 8.9; Monocytes # (A) 0.3 k/uL (0-1.0); Monocytes % (A) 2 %; Neutrophils # (A) 13.6 k/uL (1.3-7.7); Neutrophils % (A) 93 %; Platelet Count 160 k/uL (150-450); RBC 3.36 m/uL (3.80-5.40); RDW 16.1 % (11.5-15.5); WBC 14.6 k/uL (3.8-10.6)
[2021-02-19 03:37] LABS: Albumin 2.3 g/dL (3.5-5.0); Calcium 7.3 mg/dL (8.4-10.2); Potassium 3.6 mmol/L (3.5-5.1); Total Bilirubin 1.1 mg/dL (0.2-1.3); Total Protein 5.2 g/dL (6.3-8.2)
[2021-02-19 03:50] LABS: Glucose,Whole Blood 202 mg/dL (75-99)
[2021-02-19] MEDS: ACETAMINOPHEN IV (For NPO) 1,000 MG in EMPTY BAG 1 BAG IVPB PRN ×2 (04:01→14:21)
[2021-02-19] MEDS ORDERED: Potassium Replacement Protocol 1 EACH MISC MISCELLANE PRN (04:44)
[2021-02-19 04:57] LABS: Glucose,Whole Blood 185 mg/dL (75-99)
[2021-02-19] MEDS ORDERED: POTASSIUM BICARB-CITRIC ACID 25 MEQ TABLET.EFF PO SCH (05:00)
[2021-02-19 05:56] LABS: Glucose,Whole Blood 166 mg/dL (75-99)
[2021-02-19] MEDS ORDERED: CEFEPIME 2 GM in SODIUM CHLORIDE 0.9% 100 ML IVPB SCH (06:00)
[2021-02-19] MEDS: SODIUM CHLORIDE 0.9% 1,000 ML IV SCH (06:09)
[2021-02-19 06:32] LABS: ABG HCO3 23 mmol/L (21-25); ABG Oxygen Saturation 96.2 % (94-97); ABG PCO2 63 mmHg (35-45); ABG PO2 85 mmHg (83-108); ABG TCO2 25 mmol/L (19-24); Allen Test Performed? Yes
[2021-02-19 06:35] LABS: ABG PH 7.18 (7.35-7.45)
--- NOTE | 2021-02-19 06:38 | XR ---
EXAMINATION TYPE: XR chest 1V portable DATE OF EXAM: 02/19/2021 COMPARISON: 02/18/2021 HISTORY: Shortness of breath TECHNIQUE: Single frontal view of the chest is obtained. FINDINGS: ET tube is 5 cm above the oksana. There is no change in the left sided central venous cath eter. There is no change in the retrocardiac opacity in the bilateral pulmonary vascular congestion. There is no pneumothorax. IMPRESSION: No significant interval change in the acute cardiopulmonary disease.
[2021-02-19 06:41] LABS: Glucose,Whole Blood 155 mg/dL (75-99)
[2021-02-19 08:05] LABS: Glucose,Whole Blood 173 mg/dL (75-99)
[2021-02-19] MEDS ORDERED: FUROSEMIDE 10 MG/ML 10 ML VIAL IV STA (08:36)
--- NOTE | 2021-02-19 08:56 | P.NPCON ---
History of Present Illness - Reason for Consult acute renal failure - History of Present Illness Reason for consultation: Acute kidney injury History of present illness: Patient is a 65-year-old female seen in renal consultation for acute kidney injury. Patient presented to the hospital on 02/13/2021 with abnormal blood sugars as well as witnessed arrest in front of family members. She underwent CPR and was found to be in V. fib and was shocked total of 5 times. She underwent cardiac catheterization on 02/13/2021 and underwent angioplasty of the LAD. Echocardiogram revealed preserved ejection fraction. Patient is currently intubated. She is on Levophed. She is being treated for MRSA pneumonia and bacteremia with IV vancomycin. She is receiving IV fluids. Patient is oliguric. Tested negative for coronavirus. Patient does have history of diabetes as well as hypertension. Vital signs - tachycardic and hypotensive. On vasopressor support. Febrile. HEENT: Intubated. LUNGS: Breath sounds decreased. HEART: Tachycardic. ABDOMEN: Soft, obese. EXTREMITITES: No edema. Past Medical History Past Medical History: Coronary Artery Disease (CAD), Diabetes Mellitus, GERD/Reflux, Hypertension, Thyroid Disorder History of Any Multi-Drug Resistant Organisms: None Reported Past Surgical History: Cholecystectomy Past Anesthesia/Blood Transfusion Reactions: No Reported Reaction Past Psychological History: No Psychological Hx Reported Smoking Status: Never smoker Past Alcohol Use History: Unable to Obtain Past Drug Use History: Unable to Obtain Medications and Allergies Home Medications Medication Instructions Recorded Confirmed Type Aspirin 81 tab PO DAILY 02/18/14 02/13/21 History Atorvastatin [Lipitor] 40 mg PO DAILY 02/18/14 02/13/21 History Levothyroxine Sodium [Synthroid] 200 mcg PO [id number] 02/18/14 02/13/21 History Famotidine [Pepcid] 40 mg PO BID 02/13/21 02/13/21 History Insulin NPH Hum/Reg Insulin Hm 70 unit SQ DAILY 02/13/21 02/13/21 History [Relion Novolin 70-30 Flexpen] Insulin NPH Hum/Reg Insulin Hm 90 unit SQ HS 02/13/21 02/13/21 History [Relion Novolin 70-30 Flexpen] Levothyroxine Sodium [Synthroid] 125 mcg PO CHEW 02/13/21 02/13/21 History Metoprolol Succinate (ER) [Toprol 100 mg PO DAILY 02/13/21 02/13/21 History XL] cloNIDine HCL 0.1 mg PO BID 02/13/21 02/13/21 History Allergies Allergy/AdvReac Type Severity Reaction Status Date / Time Penicillins AdvReac Rash/Hives Verified 02/13/21 17:35 Physical Exam Vitals: Vital Signs Temp Pulse Resp Pulse Ox 02/19/21 08:00 100.9 F H 113 H 24 95 02/19/21 07:30 117 H 24 95 02/19/21 07:00 112 H 24 95 02/19/21 06:30 112 H 24 94 L 02/19/21 06:00 111 H 24 94 L 02/19/21 05:30 110 H 19 94 L 02/19/21 05:00 108 H 24 94 L 02/19/21 04:30 105 H 24 94 L 02/19/21 04:00 100.9 F H 105 H 24 94 L 02/19/21 03:30 105 H 24 94 L 02/19/21 03:00 104 H 24 94 L 02/19/21 02:30 101 H 24 95 02/19/21 02:00 98 24 95 02/19/21 01:30 101 H 24 95 02/19/21 01:08 98 02/19/21 01:00 99 24 96 02/19/21 00:55 99 02/19/21 00:30 98 24 97 02/19/21 00:00 99.9 F H 98 24 97 02/18/21 23:30 99 24 97 02/18/21 23:00 100 24 97 02/18/21 22:30 101 H 24 96 02/18/21 22:00 102 H 24 96 02/18/21 21:54 110 H 02/18/21 21:35 114 H 02/18/21 21:30 117 H 24 96 02/18/21 21:00 120 H 24 96 02/18/21 20:00 99.6 F 120 H 24 96 02/18/21 19:00 115 H 24 96 02/18/21 18:00 113 H 24 96 02/18/21 17:00 112 H 24 96 02/18/21 16:34 118 H 02/18/21 16:26 112 H 02/18/21 16:00 96.8 F L 105 H 24 96 02/18/21 15:00 108 H 24 97 02/18/21 14:00 108 H 24 96 02/18/21 13:00 114 H 24 95 02/18/21 12:49 116 H 02/18/21 12:00 102.1 F H 114 H 24 97 02/18/21 11:00 125 H 24 97 02/18/21 10:00 122 H 24 96 02/18/21 09:00 126 H 24 92 L Intake and Output 02/18/21 02/19/21 02/19/21 22:59 06:59 14:59 Intake Total 6441.308 6761.297 467.419 Output Total 70 23 10 Balance 1154.021 5434.297 457.419 Intake: IV 450 350 100 Cefepime 2 gm In Sodium 100 Chloride 0.9% 100 ml @ 25 mls/hr IVPB Q8HR [facility] Rx# :[id number] Sodium Chloride 0.9% 1, 350 350 100 000 ml @ 50 mls/hr IV . Q20H [facility] Rx#:[id number] Intake, IV Titration 918.223 8318.297 299.419 Amount ACETAMINOPHEN IV (For NPO 100 ) 1,000 mg In Empty Bag 1 bag @ 400 mls/hr IVPB Q6HR [facility] Rx#:[id number] Cisatracurium 200 mg In 8.508 Sodium Chloride 0.9% 180 ml @ 1 MCG/KG/MIN 7.824 mls/hr IV .Q24H [facility] Rx#: [id number] Insulin Regular 100 unit 33.050 2.8 In Sodium Chloride 0.9% 100 ml @ Per Protocol IV .Q0M [facility] Rx#:[id number] Norepinephrine 4 mg In 369.511 711.367 254 Sodium Chloride 0.9% 250 ml @ 0.05 MCG/KG/MIN 24. 841 mls/hr IV .[id number] [facility] Rx#:[id number] Sodium Chloride 0.9% 1, 1000 000 ml @ 999 mls/hr IV . Q1H1M [facility] Rx#:[id number] Vancomycin 2,500 mg In 500 Sodium Chloride 0.9% 500 ml 500 ml @ 167 mls/hr IVPB Q24HR@1200 [facility] Rx#: [id number] propofoL 1,000 mg In 74.584 245.880 42.619 Empty Bag 1 bag @ Titrate IV .Q0M [facility] Rx#: [id number] Tube Feeding 216 192 48 Other 120 240 20 Output: Urine 70 23 10 Other: Voiding Method Indwelling Catheter Indwelling Catheter ABP, PAP, CO, CI - Last 8 Hours Arterial Blood Pressure 106/34 Arterial Blood Pressure 112/35 Arterial Blood Pressure 112/36 Arterial Blood Pressure 116/37 Arterial Blood Pressure 120/38 Arterial Blood Pressure 122/38 Arterial Blood Pressure 114/37 Arterial Blood Pressure 114/39 Arterial Blood Pressure 116/39 Arterial Blood Pressure 120/39 Arterial Blood Pressure 115/41 Arterial Blood Pressure 94/38 Arterial Blood Pressure 111/41 Arterial Blood Pressure 112/44 Results - Lab Results Most recent lab results ABG pH 7.18 (7.35-7.45) L* 02/19/21 06:25 ABG pCO2 63 mmHg (35-45) H 02/19/21 06:25 ABG pO2 85 mmHg (83-108) 02/19/21 06:25 ABG HCO3 23 mmol/L (21-25) 02/19/21 06:25 ABG O2 Saturation 96.2 % (94-97) 02/19/21 06:25 Calcium 7.3 mg/dL (8.4-10.2) L 02/19/21 03:00 Magnesium 1.8 mg/dL (1.6-2.3) 02/14/21 03:18 02/19/21 03:00 02/19/21 03:00 Assessment and Plan Plan: Assessment: 1. Acute kidney injury secondary to ATN secondary to cardiac arrest and septic shock. Baseline creatinine is near 1 and is up at 2.74 today. Oliguric. 2. Septic shock secondary to MRSA pneumonia and bacteremia on antibiotics. 3. Status post cardiac arrest on 02/13/2021. 4. Acute MN status post stenting of the LAD on 02/13/2021. 5. Diabetes. Plan: Maintain IV fluids. Wean FiO2 and vasopressors. Lasix 80 mg IV once today. Check vancomycin level. Dose to be adjusted for renal function. Continue to assess daily for need for renal replacement therapy. Thank you for the consultation. I will continue to follow the patient with you during her hospital stay.
[2021-02-19 09:07] LABS: Glucose,Whole Blood 179 mg/dL (75-99)
[2021-02-19] MEDS: CHLORHEXIDINE GLUCONATE 15 ML CUP MUCOUS MEM SCH ×2 (09:09→20:07)
[2021-02-19] MEDS: ASPIRIN 81 MG PO SCH (09:09)
[2021-02-19] MEDS: METOPROLOL TARTRATE 50 MG TAB PO SCH ×2 (09:09→20:07)
[2021-02-19] MEDS: TICAGRELOR 90 MG TAB PO SCH ×2 (09:09→20:07)
[2021-02-19] MEDS: PANTOPRAZOLE 40 MG/10 ML VIAL IVP SCH (09:09)
[2021-02-19] MEDS: LEVOTHYROXINE 100 MCG TAB PO SCH (09:32)
[2021-02-19] MEDS: NOREPINEPHRINE 32 MG in SODIUM CHLORIDE 0.9% 218 ML IV SCH (10:01)
[2021-02-19 10:18] LABS: Glucose,Whole Blood 171 mg/dL (75-99)
[2021-02-19 11:00] LABS: Glucose,Whole Blood 171 mg/dL (75-99)
--- NOTE | 2021-02-19 11:00 | PN ---
PROGRESS NOTE Mrs. Hale is a 65-year-old female with a history of hypertension, hyperlipidemia and diabetes mellitus who presented with a myocardial infarction complicated by ventricular fibrillation and ventricular tachycardia, had CPR and subsequent cardiac catheterization and was found to have a totally occluded LAD and underwent stenting of that vessel. She was extubated, subsequently re-intubated and had evidence of aspiration pneumonia. She continues to be intubated, hemodynamically unstable in sinus tachycardia with decreased urine output. She is requiring vasopressor. She has had no further episode of ventricular tachycardia. She was febrile earlier. Her medications include aspirin once a day, Lipitor 80 mg daily. She received one dose of IV Lasix today. She is on metoprolol 50 mg twice a day in addition to Brilinta 90 mg twice a day. PHYSICAL EXAMINATION: Blood pressure in the 100s with a heart rate in the 110s to 120s. She had a temperature of 100.9. LUNGS: Clear anteriorly. No wheezes. HEART: Tachycardic. S1, S2. No S3, with a systolic murmur at the base. No diastolic murmur. ABDOMEN: Soft. Positive bowel sounds. No organomegaly. EXTREMITIES: Plus edema. LAB DATA: White blood cell count 14.6, hemoglobin 9.7. Her BUN creatinine are up to 51 and 2.74. Her pH is 7.18 with a pCO2 of 63 and a PO2 of 85. Her chest x-ray shows no significant changes. IMPRESSION: 1. Respiratory failure with aspiration pneumonia. 2. Status post cardiac arrest with ventricular fibrillation. 3. Status post anterior myocardial infarction and stenting of the LAD. 4. Acute renal injury. 5. Hypotension with possible septic shock. 6. Diabetes mellitus. 7. History of hyperlipidemia. 8. Obesity. RECOMMENDATIONS: Will continue supportive care. Patient has been seen by the nephrology service. Will continue on the present regimen. Unfortunately the prognosis is guarded. Depending on her progress, further recommendations will be made. MMODL / IJN: [id number] /
--- NOTE | 2021-02-19 11:29 | P.PN ---
Subjective Progress Note Date: 02/19/21 Principal diagnosis: Respiratory failure. 65-year-old female with a history of diabetes, hypothyroidism, hyperlipidemia, hypertension, gastroesophageal reflux disease, and obesity, who was seen in the emergency room, on February 13. She apparently had a witnessed cardiac arrest in front of family members. EMS was called, and ACLS protocol was begun. The patient was noted to be in ventricular fibrillation. She apparently was intubated, and placed on the monitor and found to have ventricular fibrillation, and was defibrillated, a total of 5 times he was given 450 mg of amiodarone. She did apparently have spontaneous circulation briefly upon arrival, but apparently did develop PEA rhythm in the emergency room, and ACLS was continued. The patient was taken to the Ethnographer, and found to have a complete occlusion of the LAD. 2 stents replaced, via the right radial approach. The patient came back to the intensive care unit on the ventilator. She is on the volume assist control mode, rate 18, tidal volumes 375, FiO2 100%, and PEEP of 10. Initial gases showed a pO2 of 59, pCO2 47, and a pH is 7.26. These blood gases were done on a rate of 14, and a PEEP of 5. Hence the increase in rate and PEEP. The patient is currently on Toprol fall at 25 mcg/kg/m, and saline at 50 mL an hour. I reviewed her medications at the bedside with the nurse, Rachael. The jac n is to keep her on the ventilator overnight, and work on getting her extubated in the morning. Because of a cardiac arrest, no history could be obtained. The medical history that I noted above, was gleaned from the medications that she takes. They included Requip, Glucophage, micardis HCT, metoprolol, Synthroid, insulin, famotidine, Lipitor, and aspirin. The patient is seen today 02/14/2021 in follow-up in the intensive care unit. She remains intubated, sedated and on the mechanical ventilator. Current settings are assist-control mode at a rate of 18, tidal volume 375, FiO2 40% and a PEEP of 10. Morning blood gases revealed a PaO2 of 159, pCO2 44, pH 7.4 to on 50% FiO2. She is sedated with propofol at 45 mcg/kg/m. 0.9 normal saying at 50 MLS per hour. Chest x-ray reveals good placement of the endotracheal tube and nasogastric tubes. There is no pneumothorax. Some basilar density obscures left hemidiaphragm. Improved aeration in the right lung. Some bibasilar atelectasis. Left-sided rib fractures. Sputum culture pending. White count 20.1. Hemoglobin 12.2. Platelets 205. Sodium 135. Potassium 4.7. Creatinine 0.72. Glucose 238. Urine culture pending. She's been initiated and DuoNeb inhalations. Remains on Brilinta and aspirin. On 02/15/2021 patient seen in follow-up in intensive care unit, she remains intubated, and sedated on mechanical ventilator with assist control mode of ventilation with a rate of 18, tidal, 375, PEEP of 10, and FiO2 of 40%. This morning's blood gas shows pO2 of 86, pCO2 48, and pH of 7.43. 0.9 normal saline entered a 50 ML per hour, Diprivan is at 20 mics per kilo per minute. No tube feedings. She is in sinus mechanism with a rate of 122. Her sedation is being weaned, she failed a sedation holiday yesterday. Right now she has her eyes open, she appears to be slightly tracking with her gaze, however she is not following commands, and she is becoming restless and agitated. She is not on any vasopressor support, no arrhythmias overnight, no acute events. Chest x-ray today shows basilar density at the left hemidiaphragm likely related to atelectasis. Left-sided rib fractures, stable exam. Brain CT from yesterday shows degenerative and nonspecific white matter changes, and MRI was recommended to exclude acute ischemia. No acute hemorrhage or mass effect. Neurology is following, EEG has been completed showing background slowing of mild to moderate degree suggestive of generalized cerebral dysfunction as can be seen with toxic metabolic encephalopathy, no epileptiform activity. Today's labs have been reviewed with blood cell count is improving and is down to 14.3, hemoglobin is 11.6, electrolytes and renal profile are within normal limits, urinalysis showed turbid urine, with 1+ protein, 2+ glucose, small leuks, but no definite sign of infection, urine drug screen showed benzodiazepines and marijuana. COVID-19 PCR was negative. Sputum culture has been sent showing no PMNs, moderate gram-posi tive cocci On 02/16/2021 patient seen in follow-up in the intensive care unit, she remains intubated, sedated on assist control mode of ventilation with a rate of 18, tidal vital 375, FiO2 40% and PEEP of 10. Her peak air pressures 27, and her static pressure is 17. Today's chest x-ray shows perihilar opacities with possible slight increase, and possible mild pulmonary vascular congestion. The re is a small left pleural effusion with atelectasis in the retrocardiac region. Her EEG showed background slowing of mild to moderate degree, and generalized cerebral dysfunction as can be seen with toxic metabolic encephalopathy, no epileptiform activity. Brain CT showed degenerative nonspecific white matter changes. Blood gas today shows pO2 of 83, pCO2 45, and pH of 7.48. Her white blood cell count is improving, is down to 15.8, hemoglobin is 11.3, sodium is 135, the rest of electrolytes and renal profile are unremarkable. Patient is currently on 0.0 cm with a 50 ML per hour and debridement is a 40 mics per kilo per minute. She is in sinus mechanism, with a rate of 12. Yesterday patient tolerated sedation holiday, and she tolerated a brief CPAP trial, however weaning parameters were suboptimal, and patient was not ready to extubate and she was placed on assist-control mode of ventilation and received a day. She's had no acute events overnight. She is having some colored secretions suctioned out of her ET tube. She is tolerating her tube feedings, she is on vital 1.2 at a rate of 28. On 02/17/2021 patient seen in follow-up in intensive care unit. She was weaned and extubated from mechanical ventilator last night, however through the night of her breathing had worsened, and exhalation had to be placed on BiPAP support. Early this morning she had failed the BiPAP support, she was very dyspneic, tachycardic, and she had to be reintubated at 6:00 this morning. She is currently on assist control mode of ventilation with a rate of 18, tidal vital 400, FiO2 of 70% and PEEP of 12. She is currently unemployed and was seen at a rate of 29 per hour, Diprivan is a 60 mics per minute. And patient will also need to be paralyzed. Chest x-ray from this morning showed low lung volumes with bibasilar opacities. Patient was still quite tachycardic but in sinus mechanism, and hypertensive, she was given 5 mg of Lopressor IV push with good response, she is less tachycardic and blood pressure has improved. Patient is already on maintenance dose Lopressor 50 mg twice daily. Cardiology is following. The rest of her blood work was reviewed showing white blood cell count of 11.9, hemoglobin of 10, electrolytes are within normal limits, BUN of 19 and creatinine 0.74. Pro-calcitonin level was elevated at 1.37, and patient will be started on cefepime for empiric antibiotic coverage, sputum culture will be sent. Blood culture has also been ordered. Patient is on Protonix for GI prophylaxis, we will add Lovenox for DVT prophylaxis. Progress note dated 02/18/2021. 65-year-old female again seen in room 261. The patient was extubated from mechanical ventilation, on February 16. Unfortunately, on the morning of the , she was reintubated. The patient remains on the mechanical ventilator. She is on the volume assist control mode, rate 18, tidal volume 400, FiO2 85%, and PEEP of 12. Arterial blood gases show pO2 111, CO2 of 75, and pH is 7.17. The blood gases were done on 100%. Hence, the FiO2 was reduced down to 85%. The patient remains on propofol at 40 mcg/kg/m and Nimbex at 1 mcg/kg/m. She's also getting Dilaudid when necessary. The patient's on saline at 50 mL an hour, and receiving tube feedings with vital high protein at 24 mL an hour, which is goal. The patient was thought to have possibly aspirated, and remains on cefepime. White count 14.1, hemoglobin 10.1, hematocrit 33.0, and platelet count 153,000. Sodium potassium chloride CO2 all normal. Anion gap normal. BUN 35, with a creatinine of 1.29. Chest x-ray shows mild pulmonary vascular congestion, and increased opacity or infiltrate particularly in the right mid lung. Progress note dated 02/19/2021. 65-year-old female, again seen in room 261. The patient was extubated from mechanical ventilation on February 16, and unfortunately, on the morning of the , she was reintubated. She remains on the mechanical ventilator. She is on the volume assist control mode, rate now 24, to be increased to 28, tidal volume 400, FiO2 60%, and PEEP of 15. Blood gases show pO2 of 85, pCO2 of 63, and a pH is 7.17. The patient's getting saline at 50 mL an hour, propofol at 30 mcg/kg/m, Nimbex at 0.75 mcg/kg/m, levothyroid at 35 mcg/m, insulin at 2 units per hour, and vital high protein at 24 mL an hour, which is goal. The patient likely aspirated, which is why she was reintubated. White count is 14.6, hemoglobin 9.7, hematocrit 32.5, and platelet count 160,000. Sodium 140, potassium 3.6, chlorides 111, CO2 22, anion gap 7, BUN 51, and creatinine 2.74. Albumin is 2.3. Pro-calcitonin level is elevated at 1.37. Sputum from February 17 showed staph aureus. Blood cultures from the same day also show staph aureus. The Staphylococcus aureus is a methicillin sensitive staph aureus. The patients cefepime will be discontinued and the vancomycin will be discontinued, and the patient we placed on Levaquin. The patient's chest x-ray is essentially unchanged, and continues to show pulmonary vascular congestion, and a right midlung infiltrate. Objective - Vital Signs Vital signs: Vital Signs Temp 100.9 F H 02/19/21 08:00 Pulse 98 02/19/21 10:30 Resp 28 H 02/19/21 10:30 BP 95/49 02/18/21 01:00 Pulse Ox 98 02/19/21 10:30 Intake & Output 02/18/21 02/19/21 02/19/21 18:59 06:59 18:59 Intake Total 9335.786 0525.881 711.361 Output Total 80 78 15 Balance 8684.321 7621.881 696.361 Weight 136.6 kg Intake: IV 750 550 200 Cefepime 2 gm In Sodium 200 Chloride 0.9% 100 ml @ 25 mls/hr IVPB Q8HR ADRIANA Rx# :[id number] Sodium Chloride 0.9% 1, 550 550 200 000 ml @ 50 mls/hr IV . Q20H ADRIANA Rx#:[id number] Intake, IV Titration 294.909 2139.881 395.361 Amount ACETAMINOPHEN IV (For NPO 100 ) 1,000 mg In Empty Bag 1 bag @ 400 mls/hr IVPB Q6HR PRN Rx#:[id number] Cisatracurium 200 mg In 84.531 95.942 Sodium Chloride 0.9% 180 ml @ 1 MCG/KG/MIN 7.824 mls/hr IV .Q24H [facility]LY [facility], [facility]–1983 Rx#: [id number] Insulin Regular 100 unit 33.050 2.8 In Sodium Chloride 0.9% 100 ml @ Per Protocol IV .Q0M [facility], [facility]–1983 Rx#:[id number] Norepinephrine 4 mg In 244.935 965.367 254 Sodium Chloride 0.9% 250 ml @ 0.05 MCG/KG/MIN 24. 841 mls/hr IV .[id number] [facility], [facility]–1983 Rx#:[id number] Sodium Chloride 0.9% 1, 1000 000 ml @ 999 mls/hr IV . Q1H1M ONE Rx#:[id number] Vancomycin 2,500 mg In 500 Sodium Chloride 0.9% 500 ml 500 ml @ 167 mls/hr IVPB Q24HR@1200 [facility], [facility]–1983 Rx#: [id number] propofoL 1,000 mg In 200.00 320.464 42.619 Empty Bag 1 bag @ Titrate IV .Q0M [facility], [facility]–1983 Rx#: [id number] Tube Feeding 288 312 96 Other 240 360 20 Output: Urine 80 78 15 Other: Voiding Method Indwelling Catheter Indwelling Catheter Indwelling Catheter ABP, PAP, CO, CI - Last Documented Arterial Blood Pressure 111/50 - Exam No acute distress, sedated and paralyzed, with an orally placed endotracheal tube and NG tube. HEENT examination is grossly unremarkable. Neck supple. Full range of motion. No adenopathy thyromegaly or neck vein distention. Cardiovascular examination reveals regular rhythm rate. S1-S2 normal. No S3 or S4. No discernible murmur noted. Heart sounds are distant. Heart rates 98 bpm. It is regular. Lungs reveal coarse bilateral rhonchi and bilateral crackles. Breath sounds equal bilaterally. No wheezes. Saturations are 98%. Abdomen soft, with bowel sounds. Extremities are intact. No cyanosis or clubbing. Mild edema present. Skin is without rash or lesion. Neurologic examination cannot be adequately assessed as the patient's currently sedated and paralyzed. - Labs CBC & Chem 7: 02/19/21 03:00 02/19/21 03:00 Labs: Abnormal Lab Results - Last 24 Hours (Table) 02/18/21 02/18/21 02/18/21 Range/Units 11:33 17:39 23:16 WBC (3.8-10.6) k/uL RBC (3.80-5.40) m/uL Hgb (11.4-16.0) gm/dL Hct (34.0-46.0) % MCHC (31.0-37.0) g/dL RDW (11.5-15.5) % Neutrophils # (1.3-7.7) k/uL Lymphocytes # (1.0-4.8) k/uL ABG pH (7.35-7.45) ABG pCO2 (35-45) mmHg ABG Total CO2 (19-24) mmol/L Chloride (98-107) mmol/L BUN (7-17) mg/dL Creatinine (0.52-1.04) mg/dL Glucose (74-99) mg/dL POC Glucose (mg/dL) 368 H 334 H 306 H (75-99) mg/dL Calcium (8.4-10.2) mg/dL AST (14-36) U/L Total Protein (6.3-8.2) g/dL Albumin (3.5-5.0) g/dL 02/19/21 02/19/21 02/19/21 Range/Units 00:47 02:08 02:50 WBC (3.8-10.6) k/uL RBC (3.80-5.40) m/uL Hgb (11.4-16.0) gm/dL Hct (34.0-46.0) % MCHC (31.0-37.0) g/dL RDW (11.5-15.5) % Neutrophils # (1.3-7.7) k/uL Lymphocytes # (1.0-4.8) k/uL ABG pH (7.35-7.45) ABG pCO2 (35-45) mmHg ABG Total CO2 (19-24) mmol/L Chloride (98-107) mmol/L BUN (7-17) mg/dL Creatinine (0.52-1.04) mg/dL Glucose (74-99) mg/dL POC Glucose (mg/dL) 303 H 253 H 241 H (75-99) mg/dL Calcium (8.4-10.2) mg/dL AST (14-36) U/L Total Protein (6.3-8.2) g/dL Albumin (3.5-5.0) g/dL 02/19/21 02/19/21 02/19/21 Range/Units 03:00 03:00 03:49 WBC 14.6 H (3.8-10.6) k/uL RBC 3.36 L (3.80-5.40) m/uL Hgb 9.7 L (11.4-16.0) gm/dL Hct 32.5 L (34.0-46.0) % MCHC 29.9 L (31.0-37.0) g/dL RDW 16.1 H (11.5-15.5) % Neutrophils # 13.6 H (1.3-7.7) k/uL Lymphocytes # 0.6 L (1.0-4.8) k/uL ABG pH (7.35-7.45) ABG pCO2 (35-45) mmHg ABG Total CO2 (19-24) mmol/L Chloride 111 H (98-107) mmol/L BUN 51 H (7-17) mg/dL Creatinine 2.74 H (0.52-1.04) mg/dL Glucose 233 H (74-99) mg/dL POC Glucose (mg/dL) 202 H (75-99) mg/dL Calcium 7.3 L (8.4-10.2) mg/dL AST 75 H (14-36) U/L Total Protein 5.2 L (6.3-8.2) g/dL Albumin 2.3 L (3.5-5.0) g/dL 02/19/21 02/19/21 02/19/21 Range/Units 04:55 05:54 06:25 WBC (3.8-10.6) k/uL RBC (3.80-5.40) m/uL Hgb (11.4-16.0) gm/dL Hct (34.0-46.0) % MCHC (31.0-37.0) g/dL RDW (11.5-15.5) % Neutrophils # (1.3-7.7) k/uL Lymphocytes # (1.0-4.8) k/uL ABG pH 7.18 L* (7.35-7.45) ABG pCO2 63 H (35-45) mmHg ABG Total CO2 25 H (19-24) mmol/L Chloride (98-107) mmol/L BUN (7-17) mg/dL Creatinine (0.52-1.04) mg/dL Glucose (74-99) mg/dL POC Glucose (mg/dL) 185 H 166 H (75-99) mg/dL Calcium (8.4-10.2) mg/dL AST (14-36) U/L Total Protein (6.3-8.2) g/dL Albumin (3.5-5.0) g/dL 02/19/21 02/19/21 02/19/21 Range/Units 06:39 08:04 09:06 WBC (3.8-10.6) k/uL RBC (3.80-5.40) m/uL Hgb (11.4-16.0) gm/dL Hct (34.0-46.0) % MCHC (31.0-37.0) g/dL RDW (11.5-15.5) % Neutrophils # (1.3-7.7) k/uL Lymphocytes # (1.0-4.8) k/uL ABG pH (7.35-7.45) ABG pCO2 (35-45) mmHg ABG Total CO2 (19-24) mmol/L Chloride (98-107) mmol/L BUN (7-17) mg/dL Creatinine (0.52-1.04) mg/dL Glucose (74-99) mg/dL POC Glucose (mg/dL) 155 H 173 H 179 H (75-99) mg/dL Calcium (8.4-10.2) mg/dL AST (14-36) U/L Total Protein (6.3-8.2) g/dL Albumin (3.5-5.0) g/dL 02/19/21 02/19/21 Range/Units 10:15 10:58 WBC (3.8-10.6) k/uL RBC (3.80-5.40) m/uL Hgb (11.4-16.0) gm/dL Hct (34.0-46.0) % MCHC (31.0-37.0) g/dL RDW (11.5-15.5) % Neutrophils # (1.3-7.7) k/uL Lymphocytes # (1.0-4.8) k/uL ABG pH (7.35-7.45) ABG pCO2 (35-45) mmHg ABG Total CO2 (19-24) mmol/L Chloride (98-107) mmol/L BUN (7-17) mg/dL Creatinine (0.52-1.04) mg/dL Glucose (74-99) mg/dL POC Glucose (mg/dL) 171 H 171 H (75-99) mg/dL Calcium (8.4-10.2) mg/dL AST (14-36) U/L Total Protein (6.3-8.2) g/dL Albumin (3.5-5.0) g/dL Microbiology - Last 24 Hours (Table) 02/17/21 06:25 Gram Stain - Final Sputum Sputum Culture - Final Staphylococcus aureus 02/17/21 12:10 Blood Culture Gram Stain - Preliminary Blood Blood Culture - Preliminary Staphylococcus aureus 02/17/21 12:10 Blood Culture - Final Blood Assessment and Plan Assessment: [id number] cardiopulmonary arrest, with cardiopulmonary resuscitation, and eventual return of spontaneous circulation. The patient appeared was intubated in the field, and defibrillated 5 times. She did have return of spontaneous circulation, but was also found to have pulseless electrical activity (PEA). Status post stent placement, to the 100% occluded LAD, via the right radial approach. Routine postoperative ventilator management, status post intubation on February 13, extubation on 02/16/2021, and reintubation on 02/17/2021. Methicillin sensitive staph aureus bacteremia/pneumonia/sepsis. History of diabetes mellitus. History of hypothyroidism. History of hyperlipidemia. History of hypertension. Morbid obesity. History of gastroesophageal reflux disease. New-onset atrial fibrillation. Plan: Plan dated 02/13/2021. The patient will be maintained on mechanical ventilator overnight. We'll attempt to get her weaned and extubated tomorrow. Currently, the ventilator settings were changed to increase her rate up from 14 up to 18, and increase the PEEP from 5 up to 10 cm water. This will hopefully improve oxygenation, reduces CO2, and raise the PTH. The patient's on propofol at 25 mcg/kg/m. The patient's receiving saline at 50 mL an hour. Chest x-rays consistent with flash pulmonary edema. I've asked the respiratory therapist to start the patient on DuoNeb, every 4 hours [id number]. Additional recommendations and suggestions are forthcoming. Prognosis is guarded. Plan dated 02/18/2021. The patient was initially extubated on February 16, but unfortunately, required reintubation on February 17. The patient's vent settings are change. The rate is increased to 24, and the PEEP is increased to 15. We will attempt to wean the FiO2. We will also try to wean the patient off the Nimbex. The patient remains on cefepime empirically, for possible aspiration pneumonia. The patient's overall prognosis remains very guarded. We will continue to follow make recommendations where appropriate. Prognosis is guarded. Thus far, microbiology is negative. X-ray, labs, medications are reviewed. The patient will have a chest x-ray in the morning, as well as a CBC, basic metabolic profile, and blood gas. Plan dated 02/19/2021. The patient's sputum and blood showed evidence of methicillin sensitive staph aureus. The cefepime and vancomycin will be discontinued in favor of Levaquin. The patient's labs, x-rays, and medications are all reviewed. Chest x-rays essentially unchanged. The patient will have a morning chest x-ray, labs, and blood gas. The patient remains on propofol, Nimbex, norepinephrine, and insulin. Additional recommendations and suggestions are forthcoming. Prognosis is guarded. We will continue to follow make recommendations where appropriate. Time with Patient: Greater than 30
[2021-02-19 11:57] LABS: Glucose,Whole Blood 154 mg/dL (75-99)
[2021-02-19] MEDS ORDERED: LEVOFLOXACIN 500MG-D5W PMX 500 MG in DEXTROSE/WATER 1 100ML.BAG IVPB ONE (12:00)
[2021-02-19 12:05] LABS: Glucose,Whole Blood 179 mg/dL (75-99)
[2021-02-19 13:01] LABS: Glucose,Whole Blood 186 mg/dL (75-99)
--- NOTE | 2021-02-19 13:32 | P.PN ---
Subjective Progress Note Date: 02/19/21 02/19/2021: This is a telemedicine followup performed on this patient today on 02/19/2021. Patient continues to be on propofol 30 g, and also on Nimbex 0.4 g per program per minute. Patient is on weaning down schedule of Nimbex. She has not had any sedation holidays since she was reintubated on 02/17/2021. No seizure-like activity noted. No new concerns. 02/17/2021: Patient apparently developed respiratory distress overnight. Patient's heart rate was going up to 150 and respiration 50/m. BiPAP did not work. Patient was ultimately re-intubated earlier this morning at 6 AM and now on mechanical ventilation. Also on propofol 60 g per 2 g/m. Also on Nimbex 2 mcg/kg/m. Exam limited due to above. 02/16/2021: Patient was seen for a follow-up. Patient was extubated half an hour ago. Patient is off sedation. Appears somewhat sick. But answers and responds appropriately. Please refer to examination below. Objective - Vital Signs Vital signs: Vital Signs Temp 102.0 F H 02/19/21 12:00 Pulse 100 02/19/21 12:22 Resp 28 H 02/19/21 12:00 BP 95/49 02/18/21 01:00 Pulse Ox 98 02/19/21 12:00 Intake & Output 02/18/21 02/19/21 02/19/21 18:59 06:59 18:59 Intake Total 3706.570 5898.881 1285.897 Output Total 80 78 25 Balance 5224.453 0451.881 1260.897 Weight 136.6 kg Intake: IV 750 550 400 Cefepime 2 gm In Sodium 200 Chloride 0.9% 100 ml @ 25 mls/hr IVPB Q8HR [facility] Rx# :[id number] Levofloxacin 500Mg-D5w 100 Pmx 500 mg In Dextrose/ Water 1 100ml.bag @ 100 mls/hr IVPB ONCE ONE Rx#: [id number] Sodium Chloride 0.9% 1, 550 550 300 000 ml @ 50 mls/hr IV . Q20H [facility] Rx#:[id number] Intake, IV Titration 060.816 8591.881 525.897 Amount ACETAMINOPHEN IV (For NPO 100 ) 1,000 mg In Empty Bag 1 bag @ 400 mls/hr IVPB Q6HR [facility] Rx#:[id number] Cisatracurium 200 mg In 84.531 105.135 Sodium Chloride 0.9% 180 ml @ 1 MCG/KG/MIN 7.824 mls/hr IV .Q24H [facility] Rx#: [id number] Insulin Regular 100 unit 33.050 2.8 In Sodium Chloride 0.9% 100 ml @ Per Protocol IV .Q0M [facility] Rx#:[id number] Norepinephrine 32 mg In 21.343 Sodium Chloride 0.9% 218 ml @ 0.05 MCG/KG/MIN 3. 202 mls/hr IV .Q24H [facility] Rx#:[id number] Norepinephrine 4 mg In 244.935 965.367 254 Sodium Chloride 0.9% 250 ml @ 0.05 MCG/KG/MIN 24. 841 mls/hr IV .[id number] [facility] Rx#:[id number] Sodium Chloride 0.9% 1, 1000 000 ml @ 999 mls/hr IV . Q1H1M [facility] Rx#:[id number] Vancomycin 2,500 mg In 500 Sodium Chloride 0.9% 500 ml 500 ml @ 167 mls/hr IVPB Q24HR@1200 [facility] Rx#: [id number] propofoL 1,000 mg In 200.00 320.464 142.619 Empty Bag 1 bag @ Titrate IV .Q0M [facility] Rx#: [id number] Tube Feeding 288 312 120 Other 240 360 240 Output: Urine 80 78 25 Other: Voiding Method Indwelling Catheter Indwelling Catheter Indwelling Catheter ABP, PAP, CO, CI - Last Documented Arterial Blood Pressure 115/51 - Exam 02/19/2021: Patient intubated, sedated on propofol 30 g per program per minute. Also on Nimbex. Exam is limited. Pupils are equal 3-4 mm, round and reacting bilaterally. Rest of the examination not performed because of on sedation and Nimbex. 02/17/2021: Patient intubated, sedated on high dose propofol 60 g and Nimbex. Exam limited. 02/16/2021: Patient is extubated, appears somewhat restless, turns her head back and forth, but does respond appropriately. Patient is quite alert and awake, slightly encephalopathic. Patient makes eye contact. Patient able to name eyeglasses very well. Her pupils are round and reacting. Extraocular muscles are intact. Face appears symmetric. She appears generalized weak. However she was able to squeeze the hand to 3+ bilaterally, able to lift her arms antigravity, also able to wiggle her feet bilaterally. Patient nodded "no" for headache. No obvious seizure activity. - Labs CBC & Chem 7: 02/19/21 03:00 02/19/21 03:00 Labs: Abnormal Lab Results - Last 24 Hours (Table) 02/18/21 02/18/21 02/19/21 Range/Units 17:39 23:16 00:47 WBC (3.8-10.6) k/uL RBC (3.80-5.40) m/uL Hgb (11.4-16.0) gm/dL Hct (34.0-46.0) % MCHC (31.0-37.0) g/dL RDW (11.5-15.5) % Neutrophils # (1.3-7.7) k/uL Lymphocytes # (1.0-4.8) k/uL ABG pH (7.35-7.45) ABG pCO2 (35-45) mmHg ABG Total CO2 (19-24) mmol/L Chloride (98-107) mmol/L BUN (7-17) mg/dL Creatinine (0.52-1.04) mg/dL Glucose (74-99) mg/dL POC Glucose (mg/dL) 334 H 306 H 303 H (75-99) mg/dL Calcium (8.4-10.2) mg/dL AST (14-36) U/L Total Protein (6.3-8.2) g/dL Albumin (3.5-5.0) g/dL 02/19/21 02/19/21 02/19/21 Range/Units 02:08 02:50 03:00 WBC 14.6 H (3.8-10.6) k/uL RBC 3.36 L (3.80-5.40) m/uL Hgb 9.7 L (11.4-16.0) gm/dL Hct 32.5 L (34.0-46.0) % MCHC 29.9 L (31.0-37.0) g/dL RDW 16.1 H (11.5-15.5) % Neutrophils # 13.6 H (1.3-7.7) k/uL Lymphocytes # 0.6 L (1.0-4.8) k/uL ABG pH (7.35-7.45) ABG pCO2 (35-45) mmHg ABG Total CO2 (19-24) mmol/L Chloride (98-107) mmol/L BUN (7-17) mg/dL Creatinine (0.52-1.04) mg/dL Glucose (74-99) mg/dL POC Glucose (mg/dL) 253 H 241 H (75-99) mg/dL Calcium (8.4-10.2) mg/dL AST (14-36) U/L Total Protein (6.3-8.2) g/dL Albumin (3.5-5.0) g/dL 02/19/21 02/19/21 02/19/21 Range/Units 03:00 03:49 04:55 WBC (3.8-10.6) k/uL RBC (3.80-5.40) m/uL Hgb (11.4-16.0) gm/dL Hct (34.0-46.0) % MCHC (31.0-37.0) g/dL RDW (11.5-15.5) % Neutrophils # (1.3-7.7) k/uL Lymphocytes # (1.0-4.8) k/uL ABG pH (7.35-7.45) ABG pCO2 (35-45) mmHg ABG Total CO2 (19-24) mmol/L Chloride 111 H (98-107) mmol/L BUN 51 H (7-17) mg/dL Creatinine 2.74 H (0.52-1.04) mg/dL Glucose 233 H (74-99) mg/dL POC Glucose (mg/dL) 202 H 185 H (75-99) mg/dL Calcium 7.3 L (8.4-10.2) mg/dL AST 75 H (14-36) U/L Total Protein 5.2 L (6.3-8.2) g/dL Albumin 2.3 L (3.5-5.0) g/dL 02/19/21 02/19/21 02/19/21 Range/Units 05:54 06:25 06:39 WBC (3.8-10.6) k/uL RBC (3.80-5.40) m/uL Hgb (11.4-16.0) gm/dL Hct (34.0-46.0) % MCHC (31.0-37.0) g/dL RDW (11.5-15.5) % Neutrophils # (1.3-7.7) k/uL Lymphocytes # (1.0-4.8) k/uL ABG pH 7.18 L* (7.35-7.45) ABG pCO2 63 H (35-45) mmHg ABG Total CO2 25 H (19-24) mmol/L Chloride (98-107) mmol/L BUN (7-17) mg/dL Creatinine (0.52-1.04) mg/dL Glucose (74-99) mg/dL POC Glucose (mg/dL) 166 H 155 H (75-99) mg/dL Calcium (8.4-10.2) mg/dL AST (14-36) U/L Total Protein (6.3-8.2) g/dL Albumin (3.5-5.0) g/dL 02/19/21 02/19/21 02/19/21 Range/Units 08:04 09:06 10:15 WBC (3.8-10.6) k/uL RBC (3.80-5.40) m/uL Hgb (11.4-16.0) gm/dL Hct (34.0-46.0) % MCHC (31.0-37.0) g/dL RDW (11.5-15.5) % Neutrophils # (1.3-7.7) k/uL Lymphocytes # (1.0-4.8) k/uL ABG pH (7.35-7.45) ABG pCO2 (35-45) mmHg ABG Total CO2 (19-24) mmol/L Chloride (98-107) mmol/L BUN (7-17) mg/dL Creatinine (0.52-1.04) mg/dL Glucose (74-99) mg/dL POC Glucose (mg/dL) 173 H 179 H 171 H (75-99) mg/dL Calcium (8.4-10.2) mg/dL AST (14-36) U/L Total Protein (6.3-8.2) g/dL Albumin (3.5-5.0) g/dL 02/19/21 02/19/21 02/19/21 Range/Units 10:58 11:55 12:04 WBC (3.8-10.6) k/uL RBC (3.80-5.40) m/uL Hgb (11.4-16.0) gm/dL Hct (34.0-46.0) % MCHC (31.0-37.0) g/dL RDW (11.5-15.5) % Neutrophils # (1.3-7.7) k/uL Lymphocytes # (1.0-4.8) k/uL ABG pH (7.35-7.45) ABG pCO2 (35-45) mmHg ABG Total CO2 (19-24) mmol/L Chloride (98-107) mmol/L BUN (7-17) mg/dL Creatinine (0.52-1.04) mg/dL Glucose (74-99) mg/dL POC Glucose (mg/dL) 171 H 154 H 179 H (75-99) mg/dL Calcium (8.4-10.2) mg/dL AST (14-36) U/L Total Protein (6.3-8.2) g/dL Albumin (3.5-5.0) g/dL Microbiology - Last 24 Hours (Table) 02/17/21 06:25 Gram Stain - Final Sputum Sputum Culture - Final Staphylococcus aureus 02/17/21 12:10 Blood Culture Gram Stain - Preliminary Blood Blood Culture - Preliminary Staphylococcus aureus 02/17/21 12:10 Blood Culture - Final Blood Assessment and Plan Assessment: * Status post cardiac arrest, with the downtime of 32 minutes. Patient was extubated 02/16/2021 doing quite well, following commands appropriately, and t hen re-intubated on 02/17/2021 due to respiratory distress. * Toxic metabolic encephalopathy, possible some component of anoxic encephalopathy. * Acute STEMI, * New onset atrial fibrillation. * Diabetes * Hypertension * CAD Plan: * Patient is intubated, on sedating and paralyzing agent. Exam is limited. * Computed tomography scan of head revealed degenerative and nonspecific white matter changes are nonspecific. I reviewed computed tomography scan, no signs of acute stroke. No ICB * EEG was abnormal due to background slowing of mild to moderate degree. This is suggestive of generalized cerebral dysfunction as can be seen with toxic metabolic encephalopathy or from diffuse structural brain abnormality. No epileptiform activity was seen. * Medical management as per IM and critical care * Cardiology also on board. * Patient started on aspirin 81 mg and Brilinta, also on high dose statins Lipitor 80 mg. * DVT prophylaxis with SCDs. * At present he appears patient to have mainly medical issues. She was doing quite well when she was extubated yesterday and was following commands, appropriate responses. At this time, patient needs continued critical care, IM management. Dr. Dominic Chávez to resume neurology service from the morning. Neurology will follow sporadically/peripherally.
[2021-02-19 14:09] LABS: Glucose,Whole Blood 174 mg/dL (75-99)
[2021-02-19 15:11] LABS: Glucose,Whole Blood 173 mg/dL (75-99)
[2021-02-19 16:18] LABS: Glucose,Whole Blood 111 mg/dL (75-99)
[2021-02-19 17:13] LABS: Glucose,Whole Blood 157 mg/dL (75-99)
[2021-02-19 18:49] LABS: Glucose,Whole Blood 183 mg/dL (75-99)
[2021-02-19 19:59] LABS: Glucose,Whole Blood 163 mg/dL (75-99)
[2021-02-19] MEDS: ATORVASTATIN 80 MG TAB PO SCH (20:07)
[2021-02-19 21:03] LABS: Glucose,Whole Blood 161 mg/dL (75-99)
[2021-02-19 21:57] LABS: Glucose,Whole Blood 173 mg/dL (75-99)
--- NOTE | 2021-02-19 22:59 | P.PN ---
Subjective This is a pleasant 65 years old female with past medical history of Coronary Artery Disease , Diabetes Mellitus, GERD, Hypertension, hypothyroidism. She is a patient of Dr. Brambila Patient presents with unresponsiveness and and cardiac arrest. CPR was ongoing through EMS, patient was found in ventricular fibrillation per EMS, Pt was given 5 epi, 5 shocks and 450mg of Amniodarone. Pt did have ROSC for a few minutes but when arriving to ER no pulse present. In the emergency room patient got intubated and placed on mechanical ventilation. Initial vitals showed temperature 97.3, heart rate 79, breathing rate 16, blood pressure 118/71 and 92/62 and she was saturating 96% on mechanical ventilation Labs were showing leukocytosis of 20.5 K. INR 2.7 PH 7.2, pCO2 47 and pO2 59. Sodium 137, low potassium 2.8, normal creatinine 0.9. Glucose elevated to 65. Liver enzymes slightly elevated with AST 83 and ALT 36. Trending up troponin 0.02, 9.4 and 23.9. Coronavirus chest x-ray: Status post intubation. There may be underlying pulmonary edema or pneumonia. Repeat fracture noted on the left Nondetected. EKG showing ST elevation in anterior septal leads V1 to V4 Patient was taken to emergent cardiac cath and she underwent cardiac cathete rization with PCI to the totally occluded proximal LAD. After the procedure patient was placed on aspirin, Brillinta ,and beta beni, GONZALEZ inhibitor and statin Today patient is still intubated in the ICU, and on mechanical ventilation. She has PEEP of 10, FiO2 of 40%, tidal volume 375, she has sinus rhythm at 90 bpm, she has a Mcneil and OG tube. She has normal saline running at 50 mL per hour 02/15/2021 ICU intubated and sedated with pulmonary/critical care team followed closely Patient failed sedation trial yesterday and today. Neurology team on the case PEG showing no epileptiform discharge Ejection fraction is 50-55% Chest x-ray no change from yesterday Labs reviewed, WBC down to 14 K, INR down to normal at 1.5 Patient remains on aspirin and Brilinta Continue with gentle hydration, lisinopril, metoprolol and Aldactone with cardiology and nephrology followed the patient closely 02/16/2021 Patient remains in the ICU intubated and sedated. She is undergoing sedation holiday today as well with possible extubation that are on. She is developing fever of 100.4, her WBCs 15 K. EEG showing no epileptiform discharge. Chest x-ray showing increased perihilar opacity. There are sputum culture, proteincalcitonin. Patient is kept on aspirin and Brilinta and gentle hydration. 02/17/2021 Yesterday patient got extubated and she was doing relatively well until during the night when her respiratory status Worsened and by the morning she has to be intubated again for tachypnea and tachycardia and now she is again on mechanical ventilation. Also patient is a spiking a fever and 102 most likely secondary to pneumonia and patient was started on cefepime with culture has been requested from blood and sputum. 02/18/2021 Today patient still intubated and sedated, she still on mechanical ventilation. With pulmonary/critical care team monitor her closely and following her She is developing pneumonia with sepsis status progressed into septic shock, blood culture and sputum culture are growing staph aureus pending final culture results patient was started on IV vancomycin as well as cefepime. her blood pressure started dropping and she needed levothroid, her creatinine trending up and she is developing oliguria as per last hour she made only 5 ml/h when i checked with the night nurse. therefore 1 l liter of bolus is provided. her sugar is elevated more than 300 and if this not improving she might need to be started on insulin drip. her leukocytosis is at 14 k, creatinine trending up to 1.2. she still has a fever of 102 today. Remains on aspirin and Brilinta, pulmonary/critical care team and cardiology teams on the case 02/19/2021 Patient remains in critical condition needs mechanical ventilation on Levophed for her septic shock secondary to MSSA septicemia and pneumonia with positive sputum on blood culture Her antibiotics were adjusted today about pulmonary/critical care team into Levaquin while they discontinued cefepime and IV vancomycin. Patient still running high fever at 102. And she is becoming oliguric with acute kidney injury creatinine trending up to 2.7. Nephrology consult was obtained as she might need dialysis down the road if no improvement. Chest x-ray shows slight worsening on the right side or an changed. When I reviewed by myself. Antibiotics has just adjusted as above. Also she is on normal saline at 50 mm, insulin drip and pressors. Also she is on aspirin, Brilinta for her new ostomy Objective - Vital Signs Vital signs: Vital Signs Temp 100.9 F H 02/19/21 08:00 Pulse 100 02/19/21 11:30 Resp 28 H 02/19/21 11:30 BP 95/49 02/18/21 01:00 Pulse Ox 98 02/19/21 11:30 Intake & Output 02/18/21 02/19/21 02/19/21 18:59 06:59 18:59 Intake Total 9396.617 9583.881 791.897 Output Total 80 78 20 Balance 3788.442 3799.881 771.897 Weight 136.6 kg Intake: IV 750 550 250 Cefepime 2 gm In Sodium 200 Chloride 0.9% 100 ml @ 25 mls/hr IVPB Q8HR [facility] Rx# :[id number] Sodium Chloride 0.9% 1, 550 550 250 000 ml @ 50 mls/hr IV . Q20H [facility] Rx#:[id number] Intake, IV Titration 880.463 7135.881 425.897 Amount ACETAMINOPHEN IV (For NPO 100 ) 1,000 mg In Empty Bag 1 bag @ 400 mls/hr IVPB Q6HR [facility] Rx#:[id number] Cisatracurium 200 mg In 84.531 105.135 Sodium Chloride 0.9% 180 ml @ 1 MCG/KG/MIN 7.824 mls/hr IV .Q24H [facility] Rx#: [id number] Insulin Regular 100 unit 33.050 2.8 In Sodium Chloride 0.9% 100 ml @ Per Protocol IV .Q0M [facility] Rx#:[id number] Norepinephrine 32 mg In 21.343 Sodium Chloride 0.9% 218 ml @ 0.05 MCG/KG/MIN 3. 202 mls/hr IV .Q24H [facility] Rx#:[id number] Norepinephrine 4 mg In 244.935 965.367 254 Sodium Chloride 0.9% 250 ml @ 0.05 MCG/KG/MIN 24. 841 mls/hr IV .[id number] [facility] Rx#:[id number] Sodium Chloride 0.9% 1, 1000 000 ml @ 999 mls/hr IV . Q1H1M [facility] Rx#:[id number] Vancomycin 2,500 mg In 500 Sodium Chloride 0.9% 500 ml 500 ml @ 167 mls/hr IVPB Q24HR@1200 [facility] Rx#: [id number] propofoL 1,000 mg In 200.00 320.464 42.619 Empty Bag 1 bag @ Titrate IV .Q0M [facility] Rx#: [id number] Tube Feeding 288 312 96 Other 240 360 20 Output: Urine 80 78 20 Other: Voiding Method Indwelling Catheter Indwelling Catheter Indwelling Catheter ABP, PAP, CO, CI - Last Documented Arterial Blood Pressure 97/45 - Exam -GENERAL: The patient is sedated and intubated, not in any acute distress. morbidly obese HEENT: Pupils are round and equally reacting to light. EOMI. No scleral icterus. No conjunctival pallor. Normocephalic, atraumatic. No pharyngeal erythema. No thyromegaly. CARDIOVASCULAR: S1 and S2 present. No murmurs, rubs, or gallops. PULMONARY: Chest is clear to auscultation, no wheezing. ABDOMEN: Soft, nontender, nondistended, normoactive bowel sounds. No palpable organomegaly. MUSCULOSKELETAL: No joint swelling or deformity. EXTREMITIES: No cyanosis, clubbing, or pedal edema. NEUROLOGICAL: Gross neurological examination did not reveal any focal deficits. SKIN: No rashes. no petechiae. - Labs CBC & Chem 7: 02/19/21 03:00 02/19/21 03:00 Labs: Abnormal Lab Results - Last 24 Hours (Table) 02/18/21 02/18/21 02/19/21 Range/Units 17:39 23:16 00:47 WBC (3.8-10.6) k/uL RBC (3.80-5.40) m/uL Hgb (11.4-16.0) gm/dL Hct (34.0-46.0) % MCHC (31.0-37.0) g/dL RDW (11.5-15.5) % Neutrophils # (1.3-7.7) k/uL Lymphocytes # (1.0-4.8) k/uL ABG pH (7.35-7.45) ABG pCO2 (35-45) mmHg ABG Total CO2 (19-24) mmol/L Chloride (98-107) mmol/L BUN (7-17) mg/dL Creatinine (0.52-1.04) mg/dL Glucose (74-99) mg/dL POC Glucose (mg/dL) 334 H 306 H 303 H (75-99) mg/dL Calcium (8.4-10.2) mg/dL AST (14-36) U/L Total Protein (6.3-8.2) g/dL Albumin (3.5-5.0) g/dL 02/19/21 02/19/21 02/19/21 Range/Units 02:08 02:50 03:00 WBC 14.6 H (3.8-10.6) k/uL RBC 3.36 L (3.80-5.40) m/uL Hgb 9.7 L (11.4-16.0) gm/dL Hct 32.5 L (34.0-46.0) % MCHC 29.9 L (31.0-37.0) g/dL RDW 16.1 H (11.5-15.5) % Neutrophils # 13.6 H (1.3-7.7) k/uL Lymphocytes # 0.6 L (1.0-4.8) k/uL ABG pH (7.35-7.45) ABG pCO2 (35-45) mmHg ABG Total CO2 (19-24) mmol/L Chloride (98-107) mmol/L BUN (7-17) mg/dL Creatinine (0.52-1.04) mg/dL Glucose (74-99) mg/dL POC Glucose (mg/dL) 253 H 241 H (75-99) mg/dL Calcium (8.4-10.2) mg/dL AST (14-36) U/L Total Protein (6.3-8.2) g/dL Albumin (3.5-5.0) g/dL 02/19/21 02/19/21 02/19/21 Range/Units 03:00 03:49 04:55 WBC (3.8-10.6) k/uL RBC (3.80-5.40) m/uL Hgb (11.4-16.0) gm/dL Hct (34.0-46.0) % MCHC (31.0-37.0) g/dL RDW (11.5-15.5) % Neutrophils # (1.3-7.7) k/uL Lymphocytes # (1.0-4.8) k/uL ABG pH (7.35-7.45) ABG pCO2 (35-45) mmHg ABG Total CO2 (19-24) mmol/L Chloride 111 H (98-107) mmol/L BUN 51 H (7-17) mg/dL Creatinine 2.74 H (0.52-1.04) mg/dL Glucose 233 H (74-99) mg/dL POC Glucose (mg/dL) 202 H 185 H (75-99) mg/dL Calcium 7.3 L (8.4-10.2) mg/dL AST 75 H (14-36) U/L Total Protein 5.2 L (6.3-8.2) g/dL Albumin 2.3 L (3.5-5.0) g/dL 02/19/21 02/19/21 02/19/21 Range/Units 05:54 06:25 06:39 WBC (3.8-10.6) k/uL RBC (3.80-5.40) m/uL Hgb (11.4-16.0) gm/dL Hct (34.0-46.0) % MCHC (31.0-37.0) g/dL RDW (11.5-15.5) % Neutrophils # (1.3-7.7) k/uL Lymphocytes # (1.0-4.8) k/uL ABG pH 7.18 L* (7.35-7.45) ABG pCO2 63 H (35-45) mmHg ABG Total CO2 25 H (19-24) mmol/L Chloride (98-107) mmol/L BUN (7-17) mg/dL Creatinine (0.52-1.04) mg/dL Glucose (74-99) mg/dL POC Glucose (mg/dL) 166 H 155 H (75-99) mg/dL Calcium (8.4-10.2) mg/dL AST (14-36) U/L Total Protein (6.3-8.2) g/dL Albumin (3.5-5.0) g/dL 02/19/21 02/19/21 02/19/21 Range/Units 08:04 09:06 10:15 WBC (3.8-10.6) k/uL RBC (3.80-5.40) m/uL Hgb (11.4-16.0) gm/dL Hct (34.0-46.0) % MCHC (31.0-37.0) g/dL RDW (11.5-15.5) % Neutrophils # (1.3-7.7) k/uL Lymphocytes # (1.0-4.8) k/uL ABG pH (7.35-7.45) ABG pCO2 (35-45) mmHg ABG Total CO2 (19-24) mmol/L Chloride (98-107) mmol/L BUN (7-17) mg/dL Creatinine (0.52-1.04) mg/dL Glucose (74-99) mg/dL POC Glucose (mg/dL) 173 H 179 H 171 H (75-99) mg/dL Calcium (8.4-10.2) mg/dL AST (14-36) U/L Total Protein (6.3-8.2) g/dL Albumin (3.5-5.0) g/dL 02/19/21 Range/Units 10:58 WBC (3.8-10.6) k/uL RBC (3.80-5.40) m/uL Hgb (11.4-16.0) gm/dL Hct (34.0-46.0) % MCHC (31.0-37.0) g/dL RDW (11.5-15.5) % Neutrophils # (1.3-7.7) k/uL Lymphocytes # (1.0-4.8) k/uL ABG pH (7.35-7.45) ABG pCO2 (35-45) mmHg ABG Total CO2 (19-24) mmol/L Chloride (98-107) mmol/L BUN (7-17) mg/dL Creatinine (0.52-1.04) mg/dL Glucose (74-99) mg/dL POC Glucose (mg/dL) 171 H (75-99) mg/dL Calcium (8.4-10.2) mg/dL AST (14-36) U/L Total Protein (6.3-8.2) g/dL Albumin (3.5-5.0) g/dL Microbiology - Last 24 Hours (Table) 02/17/21 06:25 Gram Stain - Final Sputum Sputum Culture - Final Staphylococcus aureus 02/17/21 12:10 Blood Culture Gram Stain - Preliminary Blood Blood Culture - Preliminary Staphylococcus aureus 02/17/21 12:10 Blood Culture - Final Blood Assessment and Plan Assessment: Acute anteroseptal STEMI Cardiac arrest, status post ventricular fibrillation status post CPR and return of circulation Acute hypoxic respiratory failure needing intubation and mechanical ventilation Sepsis secondary to pneumonia with fever and leukocytosis, developing into septic shock secondary to MSSA in the sputum and blood Metabolic acidosis Possible pulmonary edema Leukocytosis, secondary to above Left fracture secondary to CPR Coagulopathy with INR 2.7 upon admission, resolved Hypertension Hypothyroidism Diabetes mellitus History of GERD History of coronary artery disease Morbidly obese. BMI 45.8 Plan: This is a 65 years old female who presents with STEMI and cardiac arrest status post CPR and intubation, underwent cardiac cath and PCI to LAD Continue with aspirin, brillinta , beta beni, statin and GONZALEZ inhibitor Continue with Intubation and mechanical ventilation with pulmonary/critical care team consult with possible extubation. Pulmonary team Antibiotics were adjusted to Levaquin per pulmonary/critical care team. Monitor creatinine and urine output . Nephrology consult Head Of Commission Department on the case Neurologist consulted Labs and medication were reviewed.. Continue same treatment. Continue with symptomatic treatment. Resume home medication. Monitor lytes and vitals. DVT and GI prophylaxis. Further recommendations as per clinical course of the patient DVT prophylaxis: Aspirin and brillinta GI Prophylaxis: Pepcid PT/OT: Pending Prognosis is guarded
[2021-02-19 23:08] LABS: Glucose,Whole Blood 173 mg/dL (75-99)
[2021-02-19 23:50] LABS: Glucose,Whole Blood 160 mg/dL (75-99)
[2021-02-20 00:57] LABS: Glucose,Whole Blood 165 mg/dL (75-99)
[2021-02-20 02:05] LABS: Glucose,Whole Blood 170 mg/dL (75-99)
[2021-02-20] MEDS: IPRATROPIUM-ALBUTEROL 3 ML NEB INHALATION SCH ×5 (03:13→19:40)
[2021-02-20 03:14] LABS: Glucose,Whole Blood 178 mg/dL (75-99)
[2021-02-20] MEDS: NOREPINEPHRINE 32 MG in SODIUM CHLORIDE 0.9% 218 ML IV SCH ×2 (03:21→05:20)
[2021-02-20 03:51] LABS: Glucose,Whole Blood 178 mg/dL (75-99)
[2021-02-20 03:58] LABS: Anisocytosis Slight; Basophils # (A) 0.1 k/uL (0-0.2); Basophils % (A) 0 %; Eosinophils # (A) 0.2 k/uL (0-0.7); Eosinophils % (A) 1 %; HCT 29.7 % (34.0-46.0); HGB 9.3 gm/dL (11.4-16.0); Hypochromasia Marked; Lymphocytes # (A) 0.9 k/uL (1.0-4.8); Lymphocytes % (A) 5 %; MCH 29.5 pg (25.0-35.0); MCHC 31.4 g/dL (31.0-37.0); Mean Platelet Volume 9.2; Monocytes # (A) 0.4 k/uL (0-1.0); Monocytes % (A) 3 %; Neutrophils # (A) 14.1 k/uL (1.3-7.7); Neutrophils % (A) 89 %; Platelet Count 152 k/uL (150-450); RBC 3.16 m/uL (3.80-5.40); RDW 16.4 % (11.5-15.5); WBC 15.8 k/uL (3.8-10.6)
[2021-02-20 04:45] LABS: Albumin 2.2 g/dL (3.5-5.0); Potassium 4.1 mmol/L (3.5-5.1); Total Protein 5.1 g/dL (6.3-8.2)
[2021-02-20 05:02] LABS: Glucose,Whole Blood 182 mg/dL (75-99)
[2021-02-20 05:48] LABS: Glucose,Whole Blood 187 mg/dL (75-99)
[2021-02-20] MEDS: LEVOTHYROXINE 100 MCG TAB PO SCH (05:58)
[2021-02-20 06:18] LABS: ABG Base Excess -8.8 mmol/L; ABG HCO3 19 mmol/L (21-25); ABG Oxygen Saturation 97.7 % (94-97); ABG PCO2 48 mmHg (35-45); ABG PH 7.21 (7.35-7.45); ABG PO2 98 mmHg (83-108); ABG TCO2 21 mmol/L (19-24); Allen Test Performed? Yes
[2021-02-20 06:59] LABS: Glucose,Whole Blood 195 mg/dL (75-99)
[2021-02-20 08:23] LABS: Glucose,Whole Blood 184 mg/dL (75-99)
[2021-02-20] MEDS ORDERED: SODIUM CHLORIDE 0.9% 500 ML IV SCH (08:39)
[2021-02-20] MEDS: VANCOMYCIN 2,500 MG in SODIUM CHLORIDE 0.9% 500 ML 500 ML IVPB SCH (08:40)
--- NOTE | 2021-02-20 08:41 | P.PN ---
Subjective Patient is seen in follow-up for acute kidney injury. Renal function continues to worsen. Oliguric. On Levophed. Receiving IV fluids as well as tube feeds. Vital signs are stable. On vasopressor support. HEENT: Intubated. LUNGS: Breath sounds decreased. HEART: Tachycardic. ABDOMEN: Soft, obese. EXTREMITITES: 1+ edema. Objective - Vital Signs Vital signs: Vital Signs Temp 99.6 F 02/20/21 04:00 Pulse 110 H 02/20/21 07:00 Resp 28 H 02/20/21 07:00 BP 95/49 02/18/21 01:00 Pulse Ox 96 02/20/21 07:00 Intake & Output 02/19/21 02/20/21 02/20/21 18:59 06:59 18:59 Intake Total 2176.625 1736.959 201.600 Output Total 38 15 0 Balance 2138.625 1721.959 201.600 Weight 140 kg Intake: IV 800 600 50 ACETAMINOPHEN IV (For NPO 100 ) 1,000 mg In Empty Bag 1 bag @ 400 mls/hr IVPB Q6HR PRN Rx#:[id number] Levofloxacin 500Mg-D5w 100 Pmx 500 mg In Dextrose/ Water 1 100ml.bag @ 100 mls/hr IVPB ONCE ONE Rx#: [id number] Sodium Chloride 0.9% 1, 600 600 50 000 ml @ 50 mls/hr IV . Q20H [facility] Rx#:[id number] Intake, IV Titration 752.625 488.959 127.600 Amount Cisatracurium 200 mg In 116.507 Sodium Chloride 0.9% 180 ml @ 1 MCG/KG/MIN 7.824 mls/hr IV .Q24H [facility] Rx#: [id number] Insulin Regular 100 unit 31.767 21.916 In Sodium Chloride 0.9% 100 ml @ Per Protocol IV .Q0M [facility] Rx#:[id number] Norepinephrine 32 mg In 107.732 208.860 29.966 Sodium Chloride 0.9% 218 ml @ 0.05 MCG/KG/MIN 3. 202 mls/hr IV .Q24H [facility] Rx#:[id number] Norepinephrine 4 mg In 254 Sodium Chloride 0.9% 250 ml @ 0.05 MCG/KG/MIN 24. 841 mls/hr IV .[id number] [facility] Rx#:[id number] propofoL 1,000 mg In 242.619 258.183 97.634 Empty Bag 1 bag @ Titrate IV .Q0M [facility] Rx#: [id number] Tube Feeding 264 288 24 Other 360 360 Output: Urine 38 15 0 Other: Voiding Method Indwelling Catheter Indwelling Catheter ABP, PAP, CO, CI - Last Documented Arterial Blood Pressure 112/35 - Labs CBC & Chem 7: 02/20/21 03:55 02/20/21 03:55 Labs: Abnormal Lab Results - Last 24 Hours (Table) 02/19/21 02/19/21 02/19/21 Range/Units 09:06 10:15 10:58 WBC (3.8-10.6) k/uL RBC (3.80-5.40) m/uL Hgb (11.4-16.0) gm/dL Hct (34.0-46.0) % RDW (11.5-15.5) % Neutrophils # (1.3-7.7) k/uL Lymphocytes # (1.0-4.8) k/uL ABG pH (7.35-7.45) ABG pCO2 (35-45) mmHg ABG HCO3 (21-25) mmol/L ABG O2 Saturation (94-97) % Chloride (98-107) mmol/L Carbon Dioxide (22-30) mmol/L BUN (7-17) mg/dL Creatinine (0.52-1.04) mg/dL Glucose (74-99) mg/dL POC Glucose (mg/dL) 179 H 171 H 171 H (75-99) mg/dL Calcium (8.4-10.2) mg/dL AST (14-36) U/L Alkaline Phosphatase (38-126) U/L Total Protein (6.3-8.2) g/dL Albumin (3.5-5.0) g/dL 02/19/21 02/19/21 02/19/21 Range/Units 11:55 12:04 12:59 WBC (3.8-10.6) k/uL RBC (3.80-5.40) m/uL Hgb (11.4-16.0) gm/dL Hct (34.0-46.0) % RDW (11.5-15.5) % Neutrophils # (1.3-7.7) k/uL Lymphocytes # (1.0-4.8) k/uL ABG pH (7.35-7.45) ABG pCO2 (35-45) mmHg ABG HCO3 (21-25) mmol/L ABG O2 Saturation (94-97) % Chloride (98-107) mmol/L Carbon Dioxide (22-30) mmol/L BUN (7-17) mg/dL Creatinine (0.52-1.04) mg/dL Glucose (74-99) mg/dL POC Glucose (mg/dL) 154 H 179 H 186 H (75-99) mg/dL Calcium (8.4-10.2) mg/dL AST (14-36) U/L Alkaline Phosphatase (38-126) U/L Total Protein (6.3-8.2) g/dL Albumin (3.5-5.0) g/dL 02/19/21 02/19/21 02/19/21 Range/Units 14:07 15:10 16:15 WBC (3.8-10.6) k/uL RBC (3.80-5.40) m/uL Hgb (11.4-16.0) gm/dL Hct (34.0-46.0) % RDW (11.5-15.5) % Neutrophils # (1.3-7.7) k/uL Lymphocytes # (1.0-4.8) k/uL ABG pH (7.35-7.45) ABG pCO2 (35-45) mmHg ABG HCO3 (21-25) mmol/L ABG O2 Saturation (94-97) % Chloride (98-107) mmol/L Carbon Dioxide (22-30) mmol/L BUN (7-17) mg/dL Creatinine (0.52-1.04) mg/dL Glucose (74-99) mg/dL POC Glucose (mg/dL) 174 H 173 H 111 H (75-99) mg/dL Calcium (8.4-10.2) mg/dL AST (14-36) U/L Alkaline Phosphatase (38-126) U/L Total Protein (6.3-8.2) g/dL Albumin (3.5-5.0) g/dL 02/19/21 02/19/21 02/19/21 Range/Units 17:12 18:48 19:57 WBC (3.8-10.6) k/uL RBC (3.80-5.40) m/uL Hgb (11.4-16.0) gm/dL Hct (34.0-46.0) % RDW (11.5-15.5) % Neutrophils # (1.3-7.7) k/uL Lymphocytes # (1.0-4.8) k/uL ABG pH (7.35-7.45) ABG pCO2 (35-45) mmHg ABG HCO3 (21-25) mmol/L ABG O2 Saturation (94-97) % Chloride (98-107) mmol/L Carbon Dioxide (22-30) mmol/L BUN (7-17) mg/dL Creatinine (0.52-1.04) mg/dL Glucose (74-99) mg/dL POC Glucose (mg/dL) 157 H 183 H 163 H (75-99) mg/dL Calcium (8.4-10.2) mg/dL AST (14-36) U/L Alkaline Phosphatase (38-126) U/L Total Protein (6.3-8.2) g/dL Albumin (3.5-5.0) g/dL 02/19/21 02/19/21 02/19/21 Range/Units 21:02 21:55 23:06 WBC (3.8-10.6) k/uL RBC (3.80-5.40) m/uL Hgb (11.4-16.0) gm/dL Hct (34.0-46.0) % RDW (11.5-15.5) % Neutrophils # (1.3-7.7) k/uL Lymphocytes # (1.0-4.8) k/uL ABG pH (7.35-7.45) ABG pCO2 (35-45) mmHg ABG HCO3 (21-25) mmol/L ABG O2 Saturation (94-97) % Chloride (98-107) mmol/L Carbon Dioxide (22-30) mmol/L BUN (7-17) mg/dL Creatinine (0.52-1.04) mg/dL Glucose (74-99) mg/dL POC Glucose (mg/dL) 161 H 173 H 173 H (75-99) mg/dL Calcium (8.4-10.2) mg/dL AST (14-36) U/L Alkaline Phosphatase (38-126) U/L Total Protein (6.3-8.2) g/dL Albumin (3.5-5.0) g/dL 02/19/21 02/20/21 02/20/21 Range/Units 23:48 00:54 02:04 WBC (3.8-10.6) k/uL RBC (3.80-5.40) m/uL Hgb (11.4-16.0) gm/dL Hct (34.0-46.0) % RDW (11.5-15.5) % Neutrophils # (1.3-7.7) k/uL Lymphocytes # (1.0-4.8) k/uL ABG pH (7.35-7.45) ABG pCO2 (35-45) mmHg ABG HCO3 (21-25) mmol/L ABG O2 Saturation (94-97) % Chloride (98-107) mmol/L Carbon Dioxide (22-30) mmol/L BUN (7-17) mg/dL Creatinine (0.52-1.04) mg/dL Glucose (74-99) mg/dL POC Glucose (mg/dL) 160 H 165 H 170 H (75-99) mg/dL Calcium (8.4-10.2) mg/dL AST (14-36) U/L Alkaline Phosphatase (38-126) U/L Total Protein (6.3-8.2) g/dL Albumin (3.5-5.0) g/dL 02/20/21 02/20/21 02/20/21 Range/Units 03:12 03:49 03:55 WBC 15.8 H (3.8-10.6) k/uL RBC 3.16 L (3.80-5.40) m/uL Hgb 9.3 L (11.4-16.0) gm/dL Hct 29.7 L (34.0-46.0) % RDW 16.4 H (11.5-15.5) % Neutrophils # 14.1 H (1.3-7.7) k/uL Lymphocytes # 0.9 L (1.0-4.8) k/uL ABG pH (7.35-7.45) ABG pCO2 (35-45) mmHg ABG HCO3 (21-25) mmol/L ABG O2 Saturation (94-97) % Chloride (98-107) mmol/L Carbon Dioxide (22-30) mmol/L BUN (7-17) mg/dL Creatinine (0.52-1.04) mg/dL Glucose (74-99) mg/dL POC Glucose (mg/dL) 178 H 178 H (75-99) mg/dL Calcium (8.4-10.2) mg/dL AST (14-36) U/L Alkaline Phosphatase (38-126) U/L Total Protein (6.3-8.2) g/dL Albumin (3.5-5.0) g/dL 02/20/21 02/20/21 02/20/21 Range/Units 03:55 05:01 05:47 WBC (3.8-10.6) k/uL RBC (3.80-5.40) m/uL Hgb (11.4-16.0) gm/dL Hct (34.0-46.0) % RDW (11.5-15.5) % Neutrophils # (1.3-7.7) k/uL Lymphocytes # (1.0-4.8) k/uL ABG pH (7.35-7.45) ABG pCO2 (35-45) mmHg ABG HCO3 (21-25) mmol/L ABG O2 Saturation (94-97) % Chloride 110 H (98-107) mmol/L Carbon Dioxide 17 L (22-30) mmol/L BUN 65 H (7-17) mg/dL Creatinine 3.75 H (0.52-1.04) mg/dL Glucose 171 H (74-99) mg/dL POC Glucose (mg/dL) 182 H 187 H (75-99) mg/dL Calcium 7.0 L (8.4-10.2) mg/dL AST 113 H (14-36) U/L Alkaline Phosphatase 156 H (38-126) U/L Total Protein 5.1 L (6.3-8.2) g/dL Albumin 2.2 L (3.5-5.0) g/dL 02/20/21 02/20/21 02/20/21 Range/Units 06:15 06:58 08:22 WBC (3.8-10.6) k/uL RBC (3.80-5.40) m/uL Hgb (11.4-16.0) gm/dL Hct (34.0-46.0) % RDW (11.5-15.5) % Neutrophils # (1.3-7.7) k/uL Lymphocytes # (1.0-4.8) k/uL ABG pH 7.21 L (7.35-7.45) ABG pCO2 48 H (35-45) mmHg ABG HCO3 19 L (21-25) mmol/L ABG O2 Saturation 97.7 H (94-97) % Chloride (98-107) mmol/L Carbon Dioxide (22-30) mmol/L BUN (7-17) mg/dL Creatinine (0.52-1.04) mg/dL Glucose (74-99) mg/dL POC Glucose (mg/dL) 195 H 184 H (75-99) mg/dL Calcium (8.4-10.2) mg/dL AST (14-36) U/L Alkaline Phosphatase (38-126) U/L Total Protein (6.3-8.2) g/dL Albumin (3.5-5.0) g/dL Microbiology - Last 24 Hours (Table) 02/17/21 12:10 Blood Culture Gram Stain - Preliminary Blood Blood Culture - Preliminary Staphylococcus aureus 02/17/21 06:25 Gram Stain - Final Sputum Sputum Culture - Final Staphylococcus aureus Assessment and Plan Plan: Assessment: 1. Acute kidney injury secondary to ATN secondary to cardiac arrest and septic shock. Baseline creatinine is near 1 and is up at 3.75 today. Oliguric. Diuretic unresponsive. 2. Septic shock secondary to staph pneumonia and bacteremia on antibiotics. 3. Status post cardiac arrest on 02/13/2021. 4. Acute [place] status post stenting of the LAD on 02/13/2021. 5. Diabetes. 6. Metabolic acidosis secondary to acute kidney injury. Expect improvement postdialysis. Plan: Hep-Lock IV fluids. Receiving tube feeding. Wean FiO2 and vasopressors. Monitor vancomycin levels. Dose to be adjusted for renal function. Due to worsening renal function and oliguria, initiate renal replacement therapy. Consult vascular surgery for dialysis catheter placement. First treatment of hemodialysis today and second treatment tomorrow.
[2021-02-20] MEDS ORDERED: SODIUM CHLORIDE 0.9% 2,000 ML IV ONE (08:50)
--- NOTE | 2021-02-20 08:57 | P.PN ---
Subjective Progress Note Date: 02/20/21 65-year-old female with a history of diabetes, hypothyroidism, hyperlipidemia, hypertension, gastroesophageal reflux disease, and obesity, who was seen in the emergency room, on February 13. She apparently had a witnessed cardiac arrest in front of family members. EMS was called, and ACLS protocol was begun. The patient was noted to be in ventricular fibrillation. She apparently was intubated, and placed on the monitor and found to have ventricular fibrillation, and was defibrillated, a total of 5 times he was given 450 mg of amiodarone. She did apparently have spontaneous circulation briefly upon arrival, but apparently did develop PEA rhythm in the emergency room, and ACLS was continued. The patient was taken to the [facility], and found to have a complete occlusion of the LAD. 2 stents replaced, via the right radial approach. The patient came back to the intensive care unit on the ventilator. Chest x-ray today shows basilar density at the left hemidiaphragm likely related to atelectasis. Left- sided rib fractures, stable exam. Brain CT from yesterday shows degenerative and nonspecific white matter changes, and MRI was recommended to exclude acute ischemia. No acute hemorrhage or mass effect. Neurology is following, EEG has been completed showing background slowing of mild to moderate degree suggestive of generalized cerebral dysfunction as can be seen with toxic metabolic encephalopathy, no epileptiform activity. Urine drug screen showed benzodiazepines and marijuana. COVID-19 PCR was negative. Sputum culture has been sent showing no PMNs, moderate gram-positive cocci. On 02/16/2021 patient was weaned and extubated from mechanical ventilator last night, however through the night of her breathing had worsened, and exhalation had to be placed on BiPAP support. She had to be reintubated on 02/17/2021. The patient was thought to have possibly aspirated, and remains on cefepime. She is on the volume assist control mode, rate now 28, tidal volume 400, FiO2 60%, and PEEP of 15. Blood gases show from today shows a pH of 7.21 with a pCO2 of 48 and pO2 o f 98. The peak airway pressure is 30. The chest x-ray from today showing bibasilar atelectatic changes and infiltrates. ET tube is sitting high in the trachea and it may benefit from pushing and thereby around 1 cm. No significant orotracheal secretions. The patient is obese and she has a short thick neck, likely obvious features of obstructive sleep apnea. She'll follow-up The patient's getting saline at KVO , and the patient has developed an acute kidney injury in the renal function progressively getting worse. Urine output is in order of 0-5 mL an hour. Fluid balance has been positive and the patient has gained at least 10 kg since this current hospitalization. On her blood work today, the patient has a creatinine of 3.75 with a BUN of 65, serum bicarb is at 17 with a potassium level of 4.1, the white cell is at 15.8 with a hemoglobin of 9.3 and a platelet count of 152. She is obviously hemodynamically unstable. She had progressive worsening in her blood pressure control and the patient is currently on norepinephrine infusion running at 34 g per minute. She is sadated , propofol at 40 mcg/kg/m, Nimbex off, insulin at 4 units per hour, and vital high protein at 24 mL an hour, which is goal. The patient likely aspirated, which is why she was reintubated. Pro-calcitonin level is elevated at 1.37. Sputum from February 17 showed staph aureus. Blood cultures from the same day also show staph aureus. The Staphylo coccus aureus is a methicillin sensitive staph aureus. The patients cefepime will be discontinued and the vancomycin will be discontinued, and the patient we placed on Levaquin. Objective - Vital Signs Vital signs: Vital Signs Temp 99.6 F 02/20/21 04:00 Pulse 110 H 02/20/21 07:00 Resp 28 H 02/20/21 07:00 BP 95/49 02/18/21 01:00 Pulse Ox 96 02/20/21 07:00 Intake & Output 02/19/21 02/20/21 02/20/21 18:59 06:59 18:59 Intake Total 2176.625 1736.959 201.600 Output Total 38 15 0 Balance 2138.625 1721.959 201.600 Weight 140 kg Intake: IV 800 600 50 ACETAMINOPHEN IV (For NPO 100 ) 1,000 mg In Empty Bag 1 bag @ 400 mls/hr IVPB Q6HR PRN Rx#:[id number] Levofloxacin 500Mg-D5w 100 Pmx 500 mg In Dextrose/ Water 1 100ml.bag @ 100 mls/hr IVPB ONCE ONE Rx#: [id number] Sodium Chloride 0.9% 1, 600 600 50 000 ml @ 50 mls/hr IV . Q20H ADRIANA Rx#:[id number] Intake, IV Titration 752.625 488.959 127.600 Amount Cisatracurium 200 mg In 116.507 Sodium Chloride 0.9% 180 ml @ 1 MCG/KG/MIN 7.824 mls/hr IV .Q24H ADRIANA Rx#: [id number] Insulin Regular 100 unit 31.767 21.916 In Sodium Chloride 0.9% 100 ml @ Per Protocol IV .Q0M [facility]RIANA Rx#:[id number] Norepinephrine 32 mg In 107.732 208.860 29.966 Sodium Chloride 0.9% 218 ml @ 0.05 MCG/KG/MIN 3. 202 mls/hr IV .Q24H [facility]ANA Rx#:[id number] Norepinephrine 4 mg In 254 Sodium Chloride 0.9% 250 ml @ 0.05 MCG/KG/MIN 24. 841 mls/hr IV .[id number] [facility]RIANA Rx#:[id number] propofoL 1,000 mg In 242.619 258.183 97.634 Empty Bag 1 bag @ Titrate IV .Q0M ADRIANA Rx#: [id number] Tube Feeding 264 288 24 Other 360 360 Output: Urine 38 15 0 Other: Voiding Method Indwelling Catheter Indwelling Catheter ABP, PAP, CO, CI - Last Documented Arterial Blood Pressure 112/35 - Exam No acute distress, sedated , with an orally placed endotracheal tube and NG tube. The patient is morbidly obese with obvious features of obstructive sleep apnea. She is currently intubated on a mechanical ventilator. She is off paralytics and she is sedated with propofol HEENT examination is grossly unremarkable. Neck supple. Full range of motion. No adenopathy thyromegaly or neck vein distention. Cardiovascular examination reveals regular rhythm rate. S1-S2 normal. No S3 or S4. No discernible murmur noted. Heart sounds are distant. Lungs reveal coarse bilateral rhonchi and bilateral crackles. Breath sounds equal bilaterally. No wheezes. Abdomen soft, with bowel sounds. Extremities are intact. No cyanosis or clubbing. Mild edema present. the patient is cold and clammy and there is marked diminished and the pulses in all 4 extremities. Skin is without rash or lesion. Neurologic examination cannot be adequately assessed as the patient's currently sedated - Labs CBC & Chem 7: 02/20/21 03:55 02/20/21 03:55 Labs: Abnormal Lab Results - Last 24 Hours (Table) 02/19/21 02/19/21 02/19/21 Range/Units 09:06 10:15 10:58 WBC (3.8-10.6) k/uL RBC (3.80-5.40) m/uL Hgb (11.4-16.0) gm/dL Hct (34.0-46.0) % RDW (11.5-15.5) % Neutrophils # (1.3-7.7) k/uL Lymphocytes # (1.0-4.8) k/uL ABG pH (7.35-7.45) ABG pCO2 (35-45) mmHg ABG HCO3 (21-25) mmol/L ABG O2 Saturation (94-97) % Chloride (98-107) mmol/L Carbon Dioxide (22-30) mmol/L BUN (7-17) mg/dL Creatinine (0.52-1.04) mg/dL Glucose (74-99) mg/dL POC Glucose (mg/dL) 179 H 171 H 171 H (75-99) mg/dL Calcium (8.4-10.2) mg/dL AST (14-36) U/L Alkaline Phosphatase (38-126) U/L Total Protein (6.3-8.2) g/dL Albumin (3.5-5.0) g/dL 02/19/21 02/19/21 02/19/21 Range/Units 11:55 12:04 12:59 WBC (3.8-10.6) k/uL RBC (3.80-5.40) m/uL Hgb (11.4-16.0) gm/dL Hct (34.0-46.0) % RDW (11.5-15.5) % Neutrophils # (1.3-7.7) k/uL Lymphocytes # (1.0-4.8) k/uL ABG pH (7.35-7.45) ABG pCO2 (35-45) mmHg ABG HCO3 (21-25) mmol/L ABG O2 Saturation (94-97) % Chloride (98-107) mmol/L Carbon Dioxide (22-30) mmol/L BUN (7-17) mg/dL Creatinine (0.52-1.04) mg/dL Glucose (74-99) mg/dL POC Glucose (mg/dL) 154 H 179 H 186 H (75-99) mg/dL Calcium (8.4-10.2) mg/dL AST (14-36) U/L Alkaline Phosphatase (38-126) U/L Total Protein (6.3-8.2) g/dL Albumin (3.5-5.0) g/dL 02/19/21 02/19/21 02/19/21 Range/Units 14:07 15:10 16:15 WBC (3.8-10.6) k/uL RBC (3.80-5.40) m/uL Hgb (11.4-16.0) gm/dL Hct (34.0-46.0) % RDW (11.5-15.5) % Neutrophils # (1.3-7.7) k/uL Lymphocytes # (1.0-4.8) k/uL ABG pH (7.35-7.45) ABG pCO2 (35-45) mmHg ABG HCO3 (21-25) mmol/L ABG O2 Saturation (94-97) % Chloride (98-107) mmol/L Carbon Dioxide (22-30) mmol/L BUN (7-17) mg/dL Creatinine (0.52-1.04) mg/dL Glucose (74-99) mg/dL POC Glucose (mg/dL) 174 H 173 H 111 H (75-99) mg/dL Calcium (8.4-10.2) mg/dL AST (14-36) U/L Alkaline Phosphatase (38-126) U/L Total Protein (6.3-8.2) g/dL Albumin (3.5-5.0) g/dL 02/19/21 02/19/21 02/19/21 Range/Units 17:12 18:48 19:57 WBC (3.8-10.6) k/uL RBC (3.80-5.40) m/uL Hgb (11.4-16.0) gm/dL Hct (34.0-46.0) % RDW (11.5-15.5) % Neutrophils # (1.3-7.7) k/uL Lymphocytes # (1.0-4.8) k/uL ABG pH (7.35-7.45) ABG pCO2 (35-45) mmHg ABG HCO3 (21-25) mmol/L ABG O2 Saturation (94-97) % Chloride (98-107) mmol/L Carbon Dioxide (22-30) mmol/L BUN (7-17) mg/dL Creatinine (0.52-1.04) mg/dL Glucose (74-99) mg/dL POC Glucose (mg/dL) 157 H 183 H 163 H (75-99) mg/dL Calcium (8.4-10.2) mg/dL AST (14-36) U/L Alkaline Phosphatase (38-126) U/L Total Protein (6.3-8.2) g/dL Albumin (3.5-5.0) g/dL 02/19/21 02/19/21 02/19/21 Range/Units 21:02 21:55 23:06 WBC (3.8-10.6) k/uL RBC (3.80-5.40) m/uL Hgb (11.4-16.0) gm/dL Hct (34.0-46.0) % RDW (11.5-15.5) % Neutrophils # (1.3-7.7) k/uL Lymphocytes # (1.0-4.8) k/uL ABG pH (7.35-7.45) ABG pCO2 (35-45) mmHg ABG HCO3 (21-25) mmol/L ABG O2 Saturation (94-97) % Chloride (98-107) mmol/L Carbon Dioxide (22-30) mmol/L BUN (7-17) mg/dL Creatinine (0.52-1.04) mg/dL Glucose (74-99) mg/dL POC Glucose (mg/dL) 161 H 173 H 173 H (75-99) mg/dL Calcium (8.4-10.2) mg/dL AST (14-36) U/L Alkaline Phosphatase (38-126) U/L Total Protein (6.3-8.2) g/dL Albumin (3.5-5.0) g/dL 02/19/21 02/20/2102/20/21 Range/Units 23:48 00:54 02:04 WBC (3.8-10.6) k/uL RBC (3.80-5.40) m/uL Hgb (11.4-16.0) gm/dL Hct (34.0-46.0) % RDW (11.5-15.5) % Neutrophils # (1.3-7.7) k/uL Lymphocytes # (1.0-4.8) k/uL ABG pH (7.35-7.45) ABG pCO2 (35-45) mmHg ABG HCO3 (21-25) mmol/L ABG O2 Saturation (94-97) % Chloride (98-107) mmol/L Carbon Dioxide (22-30) mmol/L BUN (7-17) mg/dL Creatinine (0.52-1.04) mg/dL Glucose (74-99) mg/dL POC Glucose (mg/dL) 160 H 165 H 170 H (75-99) mg/dL Calcium (8.4-10.2) mg/dL AST (14-36) U/L Alkaline Phosphatase (38-126) U/L Total Protein (6.3-8.2) g/dL Albumin (3.5-5.0) g/dL 02/20/21 02/20/21 02/20/21 Range/Units 03:12 03:49 03:55 WBC 15.8 H (3.8-10.6) k/uL RBC 3.16 L (3.80-5.40) m/uL Hgb 9.3 L (11.4-16.0) gm/dL Hct 29.7 L (34.0-46.0) % RDW 16.4 H (11.5-15.5) % Neutrophils # 14.1 H (1.3-7.7) k/uL Lymphocytes # 0.9 L (1.0-4.8) k/uL ABG pH (7.35-7.45) ABG pCO2 (35-45) mmHg ABG HCO3 (21-25) mmol/L ABG O2 Saturation (94-97) % Chloride (98-107) mmol/L Carbon Dioxide (22-30) mmol/L BUN (7-17) mg/dL Creatinine (0.52-1.04) mg/dL Glucose (74-99) mg/dL POC Glucose (mg/dL) 178 H 178 H (75-99) mg/dL Calcium (8.4-10.2) mg/dL AST (14-36) U/L Alkaline Phosphatase (38-126) U/L Total Protein (6.3-8.2) g/dL Albumin (3.5-5.0) g/dL 02/20/21 02/20/21 02/20/21 Range/Units 03:55 05:01 05:47 WBC (3.8-10.6) k/uL RBC (3.80-5.40) m/uL Hgb (11.4-16.0) gm/dL Hct (34.0-46.0) % RDW (11.5-15.5) % Neutrophils # (1.3-7.7) k/uL Lymphocytes # (1.0-4.8) k/uL ABG pH (7.35-7.45) ABG pCO2 (35-45) mmHg ABG HCO3 (21-25) mmol/L ABG O2 Saturation (94-97) % Chloride 110 H (98-107) mmol/L Carbon Dioxide 17 L (22-30) mmol/L BUN 65 H (7-17) mg/dL Creatinine 3.75 H (0.52-1.04) mg/dL Glucose 171 H (74-99) mg/dL POC Glucose (mg/dL) 182 H 187 H (75-99) mg/dL Calcium 7.0 L (8.4-10.2) mg/dL AST 113 H (14-36) U/L Alkaline Phosphatase 156 H (38-126) U/L Total Protein 5.1 L (6.3-8.2) g/dL Albumin 2.2 L (3.5-5.0) g/dL 02/20/21 02/20/21 02/20/21 Range/Units 06:15 06:58 08:22 WBC (3.8-10.6) k/uL RBC (3.80-5.40) m/uL Hgb (11.4-16.0) gm/dL Hct (34.0-46.0) % RDW (11.5-15.5) % Neutrophils # (1.3-7.7) k/uL Lymphocytes # (1.0-4.8) k/uL ABG pH 7.21 L (7.35-7.45) ABG pCO2 48 H (35-45) mmHg ABG HCO3 19 L (21-25) mmol/L ABG O2 Saturation 97.7 H (94-97) % Chloride (98-107) mmol/L Carbon Dioxide (22-30) mmol/L BUN (7-17) mg/dL Creatinine (0.52-1.04) mg/dL Glucose (74-99) mg/dL POC Glucose (mg/dL) 195 H 184 H (75-99) mg/dL Calcium (8.4-10.2) mg/dL AST (14-36) U/L Alkaline Phosphatase (38-126) U/L Total Protein (6.3-8.2) g/dL Albumin (3.5-5.0) g/dL Microbiology - Last 24 Hours (Table) 02/17/21 12:10 Blood Culture Gram Stain - Preliminary Blood Blood Culture - Preliminary Staphylococcus aureus 02/17/21 06:25 Gram Stain - Final Sputum Sputum Culture - Final Staphylococcus aureus Assessment and Plan Plan: 1 [id number] cardiopulmonary arrest, with cardiopulmonary resuscitation, and eventual return of spontaneous circulation. The patient appeared was intubated in the field, and defibrillated 5 times. She did have return of spontaneous circulation, but was also found to have pulseless electrical activity (PEA). 2 Acute STEMI, anterior wall and the patient is Status post stent placement, to the 100% occluded LAD, via the right radial approach. 3 Routine postoperative ventilator management, status post intubation on February 13, extubation on 02/16/2021, and reintubation on 02/17/2021. 4 Methicillin sensitive staph aureus bacteremia/pneumonia/sepsis. 5 shock, and the patient is profoundly hypotensive on pressors and higher dose of norepinephrine running at 34 g per minute. This is likely septic shock. The patient had a cardiac rhythm showed a preserved LV function. She is acute ST segment elevation myocardial infarction and 6 acute kidney injury/ATN secondary to cardiac arrest/shock. The findings on t he case. The patient is oliguric and the patient is developing fluid retention. 7 History of hyperlipidemia. 8 History of hypertension. 9 Morbid obesity. 10 History of gastroesophageal reflux disease. 11 New-onset atrial fibrillation, converted into normal sinus rhythm and currently the patient is sinus tachycardia. 12 History of diabetes mellitus. 13 History of hypothyroidism. 14 metabolic acidosis secondary to above Plan: Continue vent support, no ventilator changes to be done for today. The patient is profoundly hypotensive. This is likely septic shock. Discussed this with the medical team. The patient will be given a total of 2 L of normal saline bolus and following that the patient will be placed on vasopressin physiologic dose and the norepinephrine will be titrated to maintain a blood pressure mean above 65. Meanwhile, we'll going to continue the Levaquin and add cefepime again as an empiric antibiotic coverage. Awaiting final cultures. Repeat cultures will be sent also. The pro calcitonin level was elevated. In regards to the acute kidney injury, the patient is oliguric. I'm not sure she is going to be handled dialysis for now. While this is the plan per nephrology. Dialysis catheter will be inserted today and we'll attempt a slow dialysis as long as her hemodynamics allow. We'll check troponins Will check cardiac enzymes we'll check EKG We'll do a limited echo to reevaluate the ejection fraction Ultrasound the kidneys to rule out hydronephrosis Stop metoprolol due to her massive shock state Continue aspirin and Plavix Current cardiac rhythm is sinus sugar control continue insulin drip for blood sugar control Condition is extremely critical. This patient is a very high mortality risk and she has signs of multisystem organ failure post cardiac arrest. We'll continue to follow. My working diagnosis septic shock post cardiac arrest, the patient is hemodynamically unstable and the patient has developed significant renal failure. Extremely critical. This evaluation was done and morning 30 minutes. Time with Patient: Greater than 30
[2021-02-20 09:34] LABS: Glucose,Whole Blood 192 mg/dL (75-99)
--- NOTE | 2021-02-20 09:47 | US ---
EXAMINATION TYPE: US kidneys/renal and bladder DATE OF EXAM: 02/20/2021 COMPARISON: NONE CLINICAL HISTORY: acute kidney injury. EXAM MEASUREMENTS: Right Kidney: 12.2 x7.2 x 5.7 cm Left Kidney: 10.9 x 5.5 x 7.0 cm Right Kidney: Obscured by overlying bowel gas Left Kidney: Extremely limited due to overlying bowel gas and patient body habitus Bladder: Bladder not seen, johnson catheter seen Bilateral Jets seen: No Limited exam due to patient body habitus IMPRESSION: Limited exam demonstrates no obvious hydronephrosis or nephrolithiasis.
--- NOTE | 2021-02-20 10:08 | XR ---
EXAMINATION TYPE: XR chest 1V portable DATE OF EXAM: 02/20/2021 COMPARISON: 02/19/2021 HISTORY: Tube placement TECHNIQUE: Single frontal view of the chest is obtained. FINDINGS: ET and NG tube in good position. Bilateral mixed alveolar and interstitial infiltrates are noted. Central line noted stable. No pneumothorax. Sclerosis of the left scapula seen which can be a ssociated with osseous lesions correlate clinically. IMPRESSION: Bilateral infiltrate is stable.
[2021-02-20 10:09] LABS: Glucose,Whole Blood 179 mg/dL (75-99)
[2021-02-20] MEDS: SODIUM CHLORIDE 0.9% 1,000 ML IV SCH ×2 (11:00→12:08)
[2021-02-20] MEDS: CEFEPIME 1 GM in SODIUM CHLORIDE 0.9% 50 ML IVPB SCH ×2 (11:00→21:58)
[2021-02-20 11:23] LABS: Glucose,Whole Blood 182 mg/dL (75-99)
--- NOTE | 2021-02-20 11:35 | P.GSCN ---
History of Present Illness History of present illness: 65-year-old white female patient seen in the schedule for consulted for urgent replacement dialysis catheter. Patient is OLIGURIC AND CREATININE IS HIGH PATIENT WILL NEED A DIALYSIS CATHETER FEMORAL APPROACH. NECK EXAMINATION PATIENT HAS BEEN INTUBATED CHEST AREA BREATH SOUNDS ARE DECREAS ED ABDOMEN IS PROTUBERANT NO PERITONEAL SIGN NOTED FEMORALS ARE PALPABLE BILATERAL PLAN IS PLACEMENT OF A DIALYSIS CATHETER RISK AND COMPLICATION DISCUSSED Past Medical History Past Medical History: Coronary Artery Disease (CAD), Diabetes Mellitus, GERD/Re flux, Hypertension, Thyroid Disorder History of Any Multi-Drug Resistant Organisms: None Reported Past Surgical History: Cholecystectomy Past Anesthesia/Blood Transfusion Reactions: No Reported Reaction Past Psychological History: No Psychological Hx Reported Smoking Status: Never smoker Past Alcohol Use History: Unable to Obtain Past Drug Use History: Unable to Obtain Medications and Allergies Home Medications Medication Instructions Recorded Confirmed Type Aspirin 81 tab PO DAILY 02/18/14 02/13/21 History Atorvastatin [Lipitor] 40 mg PO DAILY 02/18/14 02/13/21 History Levothyroxine Sodium [Synthroid] 200 mcg PO [id number] 02/18/14 02/13/21 History Famotidine [Pepcid] 40 mg PO BID 02/13/21 02/13/21 History Insulin NPH Hum/Reg Insulin Hm 70 unit SQ DAILY 02/13/21 02/13/21 History [Relion Novolin 70-30 Flexpen] Insulin NPH Hum/Reg Insulin Hm 90 unit SQ HS 02/13/21 02/13/21 History [Relion Novolin 70-30 Flexpen] Levothyroxine Sodium [Synthroid] 125 mcg PO CHEW 02/13/21 02/13/21 History Metoprolol Succinate (ER) [Toprol 100 mg PO DAILY 02/13/21 02/13/21 History XL] cloNIDine HCL 0.1 mg PO BID 02/13/21 02/13/21 History Allergies Allergy/AdvReac Type Severity Reaction Status Date / Time Penicillins AdvReac Rash/Hives Verified 02/13/21 17:35 Surgical - Exam Vital Signs Temp Pulse Resp BP Pulse Ox 97.3 F L 79 16 118/71 96 02/13/21 14:56 02/13/21 14:56 02/13/21 14:56 02/13/21 14:56 02/13/21 14:56 Results - Labs 02/20/21 03:55 02/20/21 03:55 Abnormal Lab Results - Last 24 Hours (Table) 02/19/21 02/19/21 02/19/21 Range/Units 11:55 12:04 12:59 WBC (3.8-10.6) k/uL RBC (3.80-5.40) m/uL Hgb (11.4-16.0) gm/dL Hct (34.0-46.0) % RDW (11.5-15.5) % Neutrophils # (1.3-7.7) k/uL Lymphocytes # (1.0-4.8) k/uL ABG pH (7.35-7.45) ABG pCO2 (35-45) mmHg ABG HCO3 (21-25) mmol/L ABG O2 Saturation (94-97) % Chloride (98-107) mmol/L Carbon Dioxide (22-30) mmol/L BUN (7-17) mg/dL Creatinine (0.52-1.04) mg/dL Glucose (74-99) mg/dL POC Glucose (mg/dL) 154 H 179 H 186 H (75-99) mg/dL Calcium (8.4-10.2) mg/dL AST (14-36) U/L Alkaline Phosphatase (38-126) U/L Total Protein (6.3-8.2) g/dL Albumin (3.5-5.0) g/dL 02/19/21 02/19/21 02/19/21 Range/Units 14:07 15:10 16:15 WBC (3.8-10.6) k/uL RBC (3.80-5.40) m/uL Hgb (11.4-16.0) gm/dL Hct (34.0-46.0) % RDW (11.5-15.5) % Neutrophils # (1.3-7.7) k/uL Lymphocytes # (1.0-4.8) k/uL ABG pH (7.35-7.45) ABG pCO2 (35-45) mmHg ABG HCO3 (21-25) mmol/L ABG O2 Saturation (94-97) % Chloride (98-107) mmol/L Carbon Dioxide (22-30) mmol/L BUN (7-17) mg/dL Creatinine (0.52-1.04) mg/dL Glucose (74-99) mg/dL POC Glucose (mg/dL) 174 H 173 H 111 H (75-99) mg/dL Calcium (8.4-10.2) mg/dL AST (14-36) U/L Alkaline Phosphatase (38-126) U/L Total Protein (6.3-8.2) g/dL Albumin (3.5-5.0) g/dL 02/19/21 02/19/21 02/19/21 Range/Units 17:12 18:48 19:57 WBC (3.8-10.6) k/uL RBC (3.80-5.40) m/uL Hgb (11.4-16.0) gm/dL Hct (34.0-46.0) % RDW (11.5-15.5) % Neutrophils # (1.3-7.7) k/uL Lymphocytes # (1.0-4.8) k/uL ABG pH (7.35-7.45) ABG pCO2 (35-45) mmHg ABG HCO3 (21-25) mmol/L ABG O2 Saturation (94-97) % Chloride (98-107) mmol/L Carbon Dioxide (22-30) mmol/L BUN (7-17) mg/dL Creatinine (0.52-1.04) mg/dL Glucose (74-99) mg/dL POC Glucose (mg/dL) 157 H 183 H 163 H (75-99) mg/dL Calcium (8.4-10.2) mg/dL AST (14-36) U/L Alkaline Phosphatase (38-126) U/L Total Protein (6.3-8.2) g/dL Albumin (3.5-5.0) g/dL 02/19/21 02/19/21 02/19/21 Range/Units 21:02 21:55 23:06 WBC (3.8-10.6) k/uL RBC (3.80-5.40) m/uL Hgb (11.4-16.0) gm/dL Hct (34.0-46.0) % RDW (11.5-15.5) % Neutrophils # (1.3-7.7) k/uL Lymphocytes # (1.0-4.8) k/uL ABG pH (7.35-7.45) ABG pCO2 (35-45) mmHg ABG HCO3 (21-25) mmol/L ABG O2 Saturation (94-97) % Chloride (98-107) mmol/L Carbon Dioxide (22-30) mmol/L BUN (7-17) mg/dL Creatinine (0.52-1.04) mg/dL Glucose (74-99) mg/dL POC Glucose (mg/dL) 161 H 173 H 173 H (75-99) mg/dL Calcium (8.4-10.2) mg/dL AST (14-36) U/L Alkaline Phosphatase (38-126) U/L Total Protein (6.3-8.2) g/dL Albumin (3.5-5.0) g/dL 02/19/21 02/20/21 02/20/21 Range/Units 23:48 00:54 02:04 WBC (3.8-10.6) k/uL RBC (3.80-5.40) m/uL Hgb (11.4-16.0) gm/dL Hct (34.0-46.0) % RDW (11.5-15.5) % Neutrophils # (1.3-7.7) k/uL Lymphocytes # (1.0-4.8) k/uL ABG pH (7.35-7.45) ABG pCO2 (35-45) mmHg ABG HCO3 (21-25) mmol/L ABG O2 Saturation (94-97) % Chloride (98-107) mmol/L Carbon Dioxide (22-30) mmol/L BUN (7-17) mg/dL Creatinine (0.52-1.04) mg/dL Glucose (74-99) mg/dL POC Glucose (mg/dL) 160 H 165 H 170 H (75-99) mg/dL Calcium (8.4-10.2) mg/dL AST (14-36) U/L Alkaline Phosphatase (38-126) U/L Total Protein (6.3-8.2) g/dL Albumin (3.5-5.0) g/dL 02/20/21 02/20/21 02/20/21 Range/Units 03:12 03:49 03:55 WBC 15.8 H (3.8-10.6) k/uL RBC 3.16 L (3.80-5.40) m/uL Hgb 9.3 L (11.4-16.0) gm/dL Hct 29.7 L (34.0-46.0) % RDW 16.4 H (11.5-15.5) % Neutrophils # 14.1 H (1.3-7.7) k/uL Lymphocytes # 0.9 L (1.0-4.8) k/uL ABG pH (7.35-7.45) ABG pCO2 (35-45) mmHg ABG HCO3 (21-25) mmol/L ABG O2 Saturation (94-97) % Chloride (98-107) mmol/L Carbon Dioxide (22-30) mmol/L BUN (7-17) mg/dL Creatinine (0.52-1.04) mg/dL Glucose (74-99) mg/dL POC Glucose (mg/dL) 178 H 178 H (75-99) mg/dL Calcium (8.4-10.2) mg/dL AST (14-36) U/L Alkaline Phosphatase (38-126) U/L Total Protein (6.3-8.2) g/dL Albumin (3.5-5.0) g/dL 02/20/21 02/20/21 02/20/21 Range/Units 03:55 05:01 05:47 WBC (3.8-10.6) k/uL RBC (3.80-5.40) m/uL Hgb (11.4-16.0) gm/dL Hct (34.0-46.0) % RDW (11.5-15.5) % Neutrophils # (1.3-7.7) k/uL Lymphocytes # (1.0-4.8) k/uL ABG pH (7.35-7.45) ABG pCO2 (35-45) mmHg ABG HCO3 (21-25) mmol/L ABG O2 Saturation (94-97) % Chloride 110 H (98-107) mmol/L Carbon Dioxide 17 L (22-30) mmol/L BUN 65 H (7-17) mg/dL Creatinine 3.75 H (0.52-1.04) mg/dL Glucose 171 H (74-99) mg/dL POC Glucose (mg/dL) 182 H 187 H (75-99) mg/dL Calcium 7.0 L (8.4-10.2) mg/dL AST 113 H (14-36) U/L Alkaline Phosphatase 156 H (38-126) U/L Total Protein 5.1 L (6.3-8.2) g/dL Albumin 2.2 L (3.5-5.0) g/dL 02/20/21 02/20/21 02/20/21 Range/Units 06:15 06:58 08:22 WBC (3.8-10.6) k/uL RBC (3.80-5.40) m/uL Hgb (11.4-16.0) gm/dL Hct (34.0-46.0) % RDW (11.5-15.5) % Neutrophils # (1.3-7.7) k/uL Lymphocytes # (1.0-4.8) k/uL ABG pH 7.21 L (7.35-7.45) ABG pCO2 48 H (35-45) mmHg ABG HCO3 19 L (21-25) mmol/L ABG O2 Saturation 97.7 H (94-97) % Chloride (98-107) mmol/L Carbon Dioxide (22-30) mmol/L BUN (7-17) mg/dL Creatinine (0.52-1.04) mg/dL Glucose (74-99) mg/dL POC Glucose (mg/dL) 195 H 184 H (75-99) mg/dL Calcium (8.4-10.2) mg/dL AST (14-36) U/L Alkaline Phosphatase (38-126) U/L Total Protein (6.3-8.2) g/dL Albumin (3.5-5.0) g/dL 02/20/21 02/20/21 02/20/21 Range/Units 09:33 10:08 11:21 WBC (3.8-10.6) k/uL RBC (3.80-5.40) m/uL Hgb (11.4-16.0) gm/dL Hct (34.0-46.0) % RDW (11.5-15.5) % Neutrophils # (1.3-7.7) k/uL Lymphocytes # (1.0-4.8) k/uL ABG pH (7.35-7.45) ABG pCO2 (35-45) mmHg ABG HCO3 (21-25) mmol/L ABG O2 Saturation (94-97) % Chloride (98-107) mmol/L Carbon Dioxide (22-30) mmol/L BUN (7-17) mg/dL Creatinine (0.52-1.04) mg/dL Glucose (74-99) mg/dL POC Glucose (mg/dL) 192 H 179 H 182 H (75-99) mg/dL Calcium (8.4-10.2) mg/dL AST (14-36) U/L Alkaline Phosphatase (38-126) U/L Total Protein (6.3-8.2) g/dL Albumin (3.5-5.0) g/dL Microbiology - Last 24 Hours (Table) 02/17/21 12:10 Blood Culture Gram Stain - Preliminary Blood Blood Culture - Preliminary Staphylococcus aureus 02/17/21 06:25 Gram Stain - Final Sputum Sputum Culture - Final Staphylococcus aureus Diabetes panel 02/20/21 Range/Units 03:55 Sodium 140 (137-145) mmol/L Potassium 4.1 (3.5-5.1) mmol/L Chloride 110 H (98-107) mmol/L Carbon Dioxide 17 L (22-30) mmol/L BUN 65 H (7-17) mg/dL Creatinine 3.75 H (0.52-1.04) mg/dL Glucose 171 H (74-99) mg/dL Calcium 7.0 L (8.4-10.2) mg/dL AST 113 H (14-36) U/L ALT 26 (4-34) U/L Alkaline Phosphatase 156 H (38-126) U/L Total Protein 5.1 L (6.3-8.2) g/dL Albumin 2.2 L (3.5-5.0) g/dL Calcium panel 02/20/21 Range/Units 03:55 Calcium 7.0 L (8.4-10.2) mg/dL Albumin 2.2 L (3.5-5.0) g/dL Pituitary panel 02/20/21 Range/Units 03:55 Sodium 140 (137-145) mmol/L Potassium 4.1 (3.5-5.1) mmol/L Chloride 110 H (98-107) mmol/L Carbon Dioxide 17 L (22-30) mmol/L BUN 65 H (7-17) mg/dL Creatinine 3.75 H (0.52-1.04) mg/dL Glucose 171 H (74-99) mg/dL Calcium 7.0 L (8.4-10.2) mg/dL Adrenal panel 02/20/21 Range/Units 03:55 Sodium 140 (137-145) mmol/L Potassium 4.1 (3.5-5.1) mmol/L Chloride 110 H (98-107) mmol/L Carbon Dioxide 17 L (22-30) mmol/L BUN 65 H (7-17) mg/dL Creatinine 3.75 H (0.52-1.04) mg/dL Glucose 171 H (74-99) mg/dL Calcium 7.0 L (8.4-10.2) mg/dL Total Bilirubin 1.0 (0.2-1.3) mg/dL AST 113 H (14-36) U/L ALT 26 (4-34) U/L Alkaline Phosphatase 156 H (38-126) U/L Total Protein 5.1 L (6.3-8.2) g/dL Albumin 2.2 L (3.5-5.0) g/dL
[2021-02-20] MEDS ORDERED: LEVOFLOXACIN 250MG-D5W PMX 250 MG in DEXTROSE/WATER 1 50ML.BAG IVPB SCH (12:00)
[2021-02-20 12:04] LABS: Glucose,Whole Blood 173 mg/dL (75-99)
[2021-02-20] MEDS: CHLORHEXIDINE GLUCONATE 15 ML CUP MUCOUS MEM SCH ×2 (12:04→20:30)
[2021-02-20] MEDS: PANTOPRAZOLE 40 MG/10 ML VIAL IVP SCH (12:04)
[2021-02-20] MEDS: ASPIRIN 81 MG PO SCH (12:04)
[2021-02-20] MEDS: TICAGRELOR 90 MG TAB PO SCH ×2 (12:04→20:30)
--- NOTE | 2021-02-20 12:13 | PN ---
PROGRESS NOTE FOLLOW-UP NOTE: This is a 65-year-old lady who has been in the hospital for almost a week, was admitted with acute coronary syndrome, underwent cardiac catheterization, angioplasty of a totally occluded LAD. On her initial presentation, she was in ventricular fibrillation, had CPR. Currently she is intubated on vent, has renal failure and is going to have dialysis started soon. Current medications include aspirin, Lipitor, Lopressor and Brilinta. On exam, she is intubated on vent and unresponsive. Heart rate is 90 to 105 beats per minute. She is in sinus. Respiratory rate is 15, blood pressure 89/50. Chest exam reveals diminished air entry at the bases. I do not hear any crackles or rhonchi. Heart exam reveals first and second heart sounds. No gallop. No murmur. Abdomen appears distended. Examination of extremities reveals bilateral 1+ pitting edema. Labs show that the hemoglobin is 9.3. Potassium is 4.1. BUN is 65, creatinine is 3.7. ASSESSMENT: 1. Acute coronary syndrome. 2. Ventricular fibrillation, status post cardiac arrest. 3. Renal failure. 4. Vent-requiring respiratory failure. PLAN: I will continue aspirin, Brilinta, statin and current supportive therapy. MMODL / IJN: [id number] /
[2021-02-20] MEDS: SODIUM CHLORIDE 0.9% 50 ML with VASOPRESSIN 20 UNIT IVPB SCH ×2 (13:10)
[2021-02-20 13:16] LABS: Glucose,Whole Blood 165 mg/dL (75-99)
[2021-02-20 15:29] LABS: Glucose,Whole Blood 154 mg/dL (75-99)
[2021-02-20 16:08] LABS: Glucose,Whole Blood 153 mg/dL (75-99)
[2021-02-20 17:15] LABS: Glucose,Whole Blood 143 mg/dL (75-99)
[2021-02-20 18:55] LABS: Glucose,Whole Blood 146 mg/dL (75-99)
[2021-02-20 19:35] LABS: Glucose,Whole Blood 157 mg/dL (75-99)
[2021-02-20] MEDS: ATORVASTATIN 80 MG TAB PO SCH (20:30)
[2021-02-20 21:15] LABS: Glucose,Whole Blood 158 mg/dL (75-99)
[2021-02-20 22:23] LABS: Glucose,Whole Blood 177 mg/dL (75-99)
[2021-02-20 22:23] LABS: Hepatitis B Surface AB- Quant 3.5 mIU/mL; Hepatitis B Surface Antibody Nonreactive (Nonreactive); Hepatitis B Surface Antigen Nonreactive (Nonreactive)
[2021-02-20 23:08] LABS: Glucose,Whole Blood 164 mg/dL (75-99)
[2021-02-20 23:57] LABS: Glucose,Whole Blood 167 mg/dL (75-99)
--- NOTE | 2021-02-21 00:11 | P.PN ---
Subjective This is a pleasant 65 years old female with past medical history of Coronary Artery Disease , Diabetes Mellitus, GERD, Hypertension, hypothyroidism. She is a patient of Dr. Brambila Patient presents with unresponsiveness and and cardiac arrest. CPR was ongoing through EMS, patient was found in ventricular fibrillation per EMS, Pt was given 5 epi, 5 shocks and 450mg of Amniodarone. Pt did have ROSC for a few minutes but when arriving to ER no pulse present. In the emergency room patient got intubated and placed on mechanical ventilation. Initial vitals showed temperature 97.3, heart rate 79, breathing rate 16, blood pressure 118/71 and 92/62 and she was saturating 96% on mechanical ventilation Labs were showing leukocytosis of 20.5 K. INR 2.7 PH 7.2, pCO2 47 and pO2 59. Sodium 137, low potassium 2.8, normal creatinine 0.9. Glucose elevated to 65. Liver enzymes slightly elevated with AST 83 and ALT 36. Trending up troponin 0.02, 9.4 and 23.9. Coronavirus chest x-ray: Status post intubation. There may be underlying pulmonary edema or pneumonia. Repeat fracture noted on the left Nondetected. EKG showing ST elevation in anterior septal leads V1 to V4 Patient was taken to emergent cardiac cath and she underwent cardiac cathete rization with PCI to the totally occluded proximal LAD. After the procedure patient was placed on aspirin, Brillinta ,and beta beni, GONZALEZ inhibitor and statin Today patient is still intubated in the ICU, and on mechanical ventilation. She has PEEP of 10, FiO2 of 40%, tidal volume 375, she has sinus rhythm at 90 bpm, she has a Mcneil and OG tube. She has normal saline running at 50 mL per hour 02/15/2021 ICU intubated and sedated with pulmonary/critical care team followed closely Patient failed sedation trial yesterday and today. Neurology team on the case PEG showing no epileptiform discharge Ejection fraction is 50-55% Chest x-ray no change from yesterday Labs reviewed, WBC down to 14 K, INR down to normal at 1.5 Patient remains on aspirin and Brilinta Continue with gentle hydration, lisinopril, metoprolol and Aldactone with cardiology and nephrology followed the patient closely 02/16/2021 Patient remains in the ICU intubated and sedated. She is undergoing sedation holiday today as well with possible extubation that are on. She is developing fever of 100.4, her WBCs 15 K. EEG showing no epileptiform discharge. Chest x-ray showing increased perihilar opacity. There are sputum culture, proteincalcitonin. Patient is kept on aspirin and Brilinta and gentle hydration. 02/17/2021 Yesterday patient got extubated and she was doing relatively well until during the night when her respiratory status Worsened and by the morning she has to be intubated again for tachypnea and tachycardia and now she is again on mechanical ventilation. Also patient is a spiking a fever and 102 most likely secondary to pneumonia and patient was started on cefepime with culture has been requested from blood and sputum. 02/18/2021 Today patient still intubated and sedated, she still on mechanical ventilation. With pulmonary/critical care team monitor her closely and following her She is developing pneumonia with sepsis status progressed into septic shock, blood culture and sputum culture are growing staph aureus pending final culture results patient was started on IV vancomycin as well as cefepime. her blood pressure started dropping and she needed levothroid, her creatinine trending up and she is developing oliguria as per last hour she made only 5 ml/h when i checked with the night nurse. therefore 1 l liter of bolus is provided. her sugar is elevated more than 300 and if this not improving she might need to be started on insulin drip. her leukocytosis is at 14 k, creatinine trending up to 1.2. she still has a fever of 102 today. Remains on aspirin and Brilinta, pulmonary/critical care team and cardiology teams on the case 02/19/2021 Patient remains in critical condition needs mechanical ventilation on Levophed for her septic shock secondary to MSSA septicemia and pneumonia with positive sputum on blood culture Her antibiotics were adjusted today about pulmonary/critical care team into Levaquin while they discontinued cefepime and IV vancomycin. Patient still running high fever at 102. And she is becoming oliguric with acute kidney injury creatinine trending up to 2.7. Nephrology consult was obtained as she might need dialysis down the road if no improvement. Chest x-ray shows slight worsening on the right side or an changed. When I reviewed by myself. Antibiotics has just adjusted as above. Also she is on normal saline at 50 mm, insulin drip and pressors. Also she is on aspirin, Brilinta for her new ostomy 02/20/2021 Patient remains intubated and sedated in the ICU. She still in critical condition. She is currently in septic shock secondary to MSSA pneumonia and bacteremia. She's been covered with broad-spectrum antibiotics of Levaquin and cefepime. Continue with IV fluid normal sign 75 and pressors with levophed and vasopressin Also he is on insulin drip. Labs showed leukocytosis of 15.6. Creatinine trending up to 3.7 and patient is oliguric. Patient is started on hemodialysis today, second hemodialysis tomorrow Objective - Vital Signs Vital signs: Vital Signs Temp 99.6 F 02/20/21 04:00 Pulse 104 H 02/20/21 10:00 Resp 15 02/20/21 10:00 BP 89/52 02/20/21 10:00 Pulse Ox 97 02/20/21 10:00 Intake & Output 02/19/21 02/20/21 02/20/21 18:59 06:59 18:59 Intake Total 2176.625 0370.767 1594.972 Output Total 38 15 10 Balance 2138.625 1692.356 8192.972 Weight 140 kg Intake: IV 736 508 1636 ACETAMINOPHEN IV (For NPO 100 ) 1,000 mg In Empty Bag 1 bag @ 400 mls/hr IVPB Q6HR PRN Rx#:[id number] Levofloxacin 500Mg-D5w 100 Pmx 500 mg In Dextrose/ Water 1 100ml.bag @ 100 mls/hr IVPB ONCE ONE Rx#: [id number] Sodium Chloride 0.9% 1, 037 503 6655 000 ml @ 50 mls/hr IV . Q20H [facility]RIANA Rx#:[id number] Intake, IV Titration 752.625 488.959 176.972 Amount Cisatracurium 200 mg In 116.507 Sodium Chloride 0.9% 180 ml @ 1 MCG/KG/MIN 7.824 mls/hr IV .Q24H ADRIANA Rx#: [id number] Insulin Regular 100 unit 31.767 21.916 25.467 In Sodium Chloride 0.9% 100 ml @ Per Protocol IV .Q0M ADRIANA Rx#:[id number] Norepinephrine 32 mg In 107.732 208.860 53.871 Sodium Chloride 0.9% 218 ml @ 0.05 MCG/KG/MIN 3. 202 mls/hr IV .Q24H [facility]RIANA Rx#:[id number] Norepinephrine 4 mg In 254 Sodium Chloride 0.9% 250 ml @ 0.05 MCG/KG/MIN 24. 841 mls/hr IV .[id number] ADRIANA Rx#:[id number] propofoL 1,000 mg In 242.619 258.183 97.634 Empty Bag 1 bag @ Titrate IV .Q0M ADRIANA Rx#: [id number] Tube Feeding 264 288 24 Other 360 360 Output: Urine 38 15 10 Other: Voiding Method Indwelling Catheter Indwelling Catheter Indwelling Catheter ABP, PAP, CO, CI - Last Documented Arterial Blood Pressure 112/34 - Exam -GENERAL: The patient is sedated and intubated, not in any acute distress. morbidly obese HEENT: Pupils are round and equally reacting to light. EOMI. No scleral icterus. No conjunctival pallor. Normocephalic, atraumatic. No pharyngeal erythema. No thyromegaly. CARDIOVASCULAR: S1 and S2 present. No murmurs, rubs, or gallops. PULMONARY: Chest is clear to auscultation, no wheezing. ABDOMEN: Soft, nontender, nondistended, normoactive bowel sounds. No palpable organomegaly. MUSCULOSKELETAL: No joint swelling or deformity. EXTREMITIES: No cyanosis, clubbing, or pedal edema. NEUROLOGICAL: Gross neurological examination did not reveal any focal deficits. SKIN: No rashes. no petechiae. - Labs CBC & Chem 7: 02/20/21 03:55 02/20/21 03:55 Labs: Abnormal Lab Results - Last 24 Hours (Table) 02/19/21 02/19/21 02/19/21 Range/Units 10:58 11:55 12:04 WBC (3.8-10.6) k/uL RBC (3.80-5.40) m/uL Hgb (11.4-16.0) gm/dL Hct (34.0-46.0) % RDW (11.5-15.5) % Neutrophils # (1.3-7.7) k/uL Lymphocytes # (1.0-4.8) k/uL ABG pH (7.35-7.45) ABG pCO2 (35-45) mmHg ABG HCO3 (21-25) mmol/L ABG O2 Saturation (94-97) % Chloride (98-107) mmol/L Carbon Dioxide (22-30) mmol/L BUN (7-17) mg/dL Creatinine (0.52-1.04) mg/dL Glucose (74-99) mg/dL POC Glucose (mg/dL) 171 H 154 H 179 H (75-99) mg/dL Calcium (8.4-10.2) mg/dL AST (14-36) U/L Alkaline Phosphatase (38-126) U/L Total Protein (6.3-8.2) g/dL Albumin (3.5-5.0) g/dL 02/19/21 02/19/21 02/19/21 Range/Units 12:59 14:07 15:10 WBC (3.8-10.6) k/uL RBC (3.80-5.40) m/uL Hgb (11.4-16.0) gm/dL Hct (34.0-46.0) % RDW (11.5-15.5) % Neutrophils # (1.3-7.7) k/uL Lymphocytes # (1.0-4.8) k/uL ABG pH (7.35-7.45) ABG pCO2 (35-45) mmHg ABG HCO3 (21-25) mmol/L ABG O2 Saturation (94-97) % Chloride (98-107) mmol/L Carbon Dioxide (22-30) mmol/L BUN (7-17) mg/dL Creatinine (0.52-1.04) mg/dL Glucose (74-99) mg/dL POC Glucose (mg/dL) 186 H 174 H 173 H (75-99) mg/dL Calcium (8.4-10.2) mg/dL AST (14-36) U/L Alkaline Phosphatase (38-126) U/L Total Protein (6.3-8.2) g/dL Albumin (3.5-5.0) g/dL 02/19/21 02/19/21 02/19/21 Range/Units 16:15 17:12 18:48 WBC (3.8-10.6) k/uL RBC (3.80-5.40) m/uL Hgb (11.4-16.0) gm/dL Hct (34.0-46.0) % RDW (11.5-15.5) % Neutrophils # (1.3-7.7) k/uL Lymphocytes # (1.0-4.8) k/uL ABG pH (7.35-7.45) ABG pCO2 (35-45) mmHg ABG HCO3 (21-25) mmol/L ABG O2 Saturation (94-97) % Chloride (98-107) mmol/L Carbon Dioxide (22-30) mmol/L BUN (7-17) mg/dL Creatinine (0.52-1.04) mg/dL Glucose (74-99) mg/dL POC Glucose (mg/dL) 111 H 157 H 183 H (75-99) mg/dL Calcium (8.4-10.2) mg/dL AST (14-36) U/L Alkaline Phosphatase (38-126) U/L Total Protein (6.3-8.2) g/dL Albumin (3.5-5.0) g/dL 02/19/21 02/19/21 02/19/21 Range/Units 19:57 21:02 21:55 WBC (3.8-10.6) k/uL RBC (3.80-5.40) m/uL Hgb (11.4-16.0) gm/dL Hct (34.0-46.0) % RDW (11.5-15.5) % Neutrophils # (1.3-7.7) k/uL Lymphocytes # (1.0-4.8) k/uL ABG pH (7.35-7.45) ABG pCO2 (35-45) mmHg ABG HCO3 (21-25) mmol/L ABG O2 Saturation (94-97) % Chloride (98-107) mmol/L Carbon Dioxide (22-30) mmol/L BUN (7-17) mg/dL Creatinine (0.52-1.04) mg/dL Glucose (74-99) mg/dL POC Glucose (mg/dL) 163 H 161 H 173 H (75-99) mg/dL Calcium (8.4-10.2) mg/dL AST (14-36) U/L Alkaline Phosphatase (38-126) U/L Total Protein (6.3-8.2) g/dL Albumin (3.5-5.0) g/dL 02/19/21 02/19/21 02/20/21 Range/Units 23:06 23:48 00:54 WBC (3.8-10.6) k/uL RBC (3.80-5.40) m/uL Hgb (11.4-16.0) gm/dL Hct (34.0-46.0) % RDW (11.5-15.5) % Neutrophils # (1.3-7.7) k/uL Lymphocytes # (1.0-4.8) k/uL ABG pH (7.35-7.45) ABG pCO2 (35-45) mmHg ABG HCO3 (21-25) mmol/L ABG O2 Saturation (94-97) % Chloride (98-107) mmol/L Carbon Dioxide (22-30) mmol/L BUN (7-17) mg/dL Creatinine (0.52-1.04) mg/dL Glucose (74-99) mg/dL POC Glucose (mg/dL) 173 H 160 H 165 H (75-99) mg/dL Calcium (8.4-10.2) mg/dL AST (14-36) U/L Alkaline Phosphatase (38-126) U/L Total Protein (6.3-8.2) g/dL Albumin (3.5-5.0) g/dL 02/20/21 02/20/21 02/20/21 Range/Units 02:04 03:12 03:49 WBC (3.8-10.6) k/uL RBC (3.80-5.40) m/uL Hgb (11.4-16.0) gm/dL Hct (34.0-46.0) % RDW (11.5-15.5) % Neutrophils # (1.3-7.7) k/uL Lymphocytes # (1.0-4.8) k/uL ABG pH (7.35-7.45) ABG pCO2 (35-45) mmHg ABG HCO3 (21-25) mmol/L ABG O2 Saturation (94-97) % Chloride (98-107) mmol/L Carbon Dioxide (22-30) mmol/L BUN (7-17) mg/dL Creatinine (0.52-1.04) mg/dL Glucose (74-99) mg/dL POC Glucose (mg/dL) 170 H 178 H 178 H (75-99) mg/dL Calcium (8.4-10.2) mg/dL AST (14-36) U/L Alkaline Phosphatase (38-126) U/L Total Protein (6.3-8.2) g/dL Albumin (3.5-5.0) g/dL 02/20/21 02/20/21 02/20/21 Range/Units 03:55 03:55 05:01 WBC 15.8 H (3.8-10.6) k/uL RBC 3.16 L (3.80-5.40) m/uL Hgb 9.3 L (11.4-16.0) gm/dL Hct 29.7 L (34.0-46.0) % RDW 16.4 H (11.5-15.5) % Neutrophils # 14.1 H (1.3-7.7) k/uL Lymphocytes # 0.9 L (1.0-4.8) k/uL ABG pH (7.35-7.45) ABG pCO2 (35-45) mmHg ABG HCO3 (21-25) mmol/L ABG O2 Saturation (94-97) % Chloride 110 H (98-107) mmol/L Carbon Dioxide 17 L (22-30) mmol/L BUN 65 H (7-17) mg/dL Creatinine 3.75 H (0.52-1.04) mg/dL Glucose 171 H (74-99) mg/dL POC Glucose (mg/dL) 182 H (75-99) mg/dL Calcium 7.0 L (8.4-10.2) mg/dL AST 113 H (14-36) U/L Alkaline Phosphatase 156 H (38-126) U/L Total Protein 5.1 L (6.3-8.2) g/dL Albumin 2.2 L (3.5-5.0) g/dL 02/20/21 02/20/21 02/20/21 Range/Units 05:47 06:15 06:58 WBC (3.8-10.6) k/uL RBC (3.80-5.40) m/uL Hgb (11.4-16.0) gm/dL Hct (34.0-46.0) % RDW (11.5-15.5) % Neutrophils # (1.3-7.7) k/uL Lymphocytes # (1.0-4.8) k/uL ABG pH 7.21 L (7.35-7.45) ABG pCO2 48 H (35-45) mmHg ABG HCO3 19 L (21-25) mmol/L ABG O2 Saturation 97.7 H (94-97) % Chloride (98-107) mmol/L Carbon Dioxide (22-30) mmol/L BUN (7-17) mg/dL Creatinine (0.52-1.04) mg/dL Glucose (74-99) mg/dL POC Glucose (mg/dL) 187 H 195 H (75-99) mg/dL Calcium (8.4-10.2) mg/dL AST (14-36) U/L Alkaline Phosphatase (38-126) U/L Total Protein (6.3-8.2) g/dL Albumin (3.5-5.0) g/dL 02/20/21 02/20/21 02/20/21 Range/Units 08:22 09:33 10:08 WBC (3.8-10.6) k/uL RBC (3.80-5.40) m/uL Hgb (11.4-16.0) gm/dL Hct (34.0-46.0) % RDW (11.5-15.5) % Neutrophils # (1.3-7.7) k/uL Lymphocytes # (1.0-4.8) k/uL ABG pH (7.35-7.45) ABG pCO2 (35-45) mmHg ABG HCO3 (21-25) mmol/L ABG O2 Saturation (94-97) % Chloride (98-107) mmol/L Carbon Dioxide (22-30) mmol/L BUN (7-17) mg/dL Creatinine (0.52-1.04) mg/dL Glucose (74-99) mg/dL POC Glucose (mg/dL) 184 H 192 H 179 H (75-99) mg/dL Calcium (8.4-10.2) mg/dL AST (14-36) U/L Alkaline Phosphatase (38-126) U/L Total Protein (6.3-8.2) g/dL Albumin (3.5-5.0) g/dL Microbiology - Last 24 Hours (Table) 02/17/21 12:10 Blood Culture Gram Stain - Preliminary Blood Blood Culture - Preliminary Staphylococcus aureus 02/17/21 06:25 Gram Stain - Final Sputum Sputum Culture - Final Staphylococcus aureus Assessment and Plan Assessment: Acute anteroseptal STEMI Cardiac arrest, status post ventricular fibrillation status post CPR and return of circulation Acute hypoxic respiratory failure needing intubation and mechanical ventilation Sepsis secondary to pneumonia with fever and leukocytosis, developing into septic shock secondary to MSSA in the sputum and blood Metabolic acidosis acute kidney injury with oliguria requiring hemodialysis Possible pulmonary edema Leukocytosis, secondary to above Left fracture secondary to CPR Coagulopathy with INR 2.7 upon admission, resolved Hypertension Hypothyroidism Diabetes mellitus History of GERD History of coronary artery disease Morbidly obese. BMI 45.8 Plan: This is a 65 years old female who presents with STEMI and cardiac arrest status post CPR and intubation, underwent cardiac cath and PCI to LAD Continue with aspirin, brillinta , beta beni, statin and GONZALEZ inhibitor Continue with Intubation and mechanical ventilation with pulmonary/critical care team consult with possible extubation. Pulmonary team Antibiotics were adjusted to Levaquin per pulmonary/critical care team. Monitor creatinine and urine output . Nephrology consult. Continue with hemodialysis per her senior java ui developer Med Surg Rn on the case Neurologist consulted Labs and medication were reviewed.. Continue same treatment. Continue with symptomatic treatment. Resume home medication. Monitor lytes and vitals. DVT and GI prophylaxis. Further recommendations as per clinical course of the patient DVT prophylaxis: Aspirin and brillinta GI Prophylaxis: Pepcid Prognosis is guarded
[2021-02-21] MEDS: SODIUM CHLORIDE 0.9% 50 ML with VASOPRESSIN 20 UNIT IVPB SCH ×6 (01:28→20:36)
[2021-02-21] MEDS: INSULIN REGULAR 100 UNIT in SODIUM CHLORIDE 0.9% 100 ML IV SCH (01:32)
[2021-02-21] MEDS: SODIUM CHLORIDE 0.9% 1,000 ML IV SCH ×2 (02:00→20:35)
[2021-02-21] MEDS: IPRATROPIUM-ALBUTEROL 3 ML NEB INHALATION SCH ×6 (02:15→19:12)
[2021-02-21 02:21] LABS: Glucose,Whole Blood 171 mg/dL (75-99)
[2021-02-21 03:06] LABS: Glucose,Whole Blood 173 mg/dL (75-99)
[2021-02-21 03:31] LABS: Anisocytosis Slight; Basophils # (A) 0.1 k/uL (0-0.2); Basophils % (A) 0 %; Eosinophils # (A) 0.1 k/uL (0-0.7); Eosinophils % (A) 0 %; HCT 29.5 % (34.0-46.0); HGB 8.8 gm/dL (11.4-16.0); Hypochromasia Marked; Lymphocytes # (A) 0.7 k/uL (1.0-4.8); Lymphocytes % (A) 3 %; MCH 28.2 pg (25.0-35.0); MCHC 29.6 g/dL (31.0-37.0); MCV 95.2 fL (80.0-100.0); Monocytes # (A) 0.6 k/uL (0-1.0); Monocytes % (A) 2 %; Neutrophils # (A) 21.4 k/uL (1.3-7.7); Neutrophils % (A) 93 %; Platelet Count 150 k/uL (150-450); Poikilocytosis Slight; RDW 17.2 % (11.5-15.5)
[2021-02-21 03:39] LABS: Albumin 2.1 g/dL (3.5-5.0); Calcium 6.8 mg/dL (8.4-10.2); Phosphorus 4.1 mg/dL (2.5-4.5); Potassium 3.9 mmol/L (3.5-5.1); Total Bilirubin 0.8 mg/dL (0.2-1.3); Total Protein 4.9 g/dL (6.3-8.2)
[2021-02-21 06:06] LABS: Glucose,Whole Blood 172 mg/dL (75-99)
[2021-02-21 06:07] LABS: ABG Base Excess -6.7 mmol/L; ABG HCO3 21 mmol/L (21-25); ABG Oxygen Saturation 98.9 % (94-97); ABG PCO2 47 mmHg (35-45); ABG PH 7.25 (7.35-7.45); ABG PO2 123 mmHg (83-108); ABG TCO2 22 mmol/L (19-24); Allen Test Performed? Yes
[2021-02-21] MEDS: LEVOTHYROXINE 100 MCG TAB PO SCH (06:12)
[2021-02-21 07:02] LABS: Glucose,Whole Blood 168 mg/dL (75-99)
[2021-02-21] MEDS: NOREPINEPHRINE 32 MG in SODIUM CHLORIDE 0.9% 218 ML IV SCH (07:06)
[2021-02-21 08:17] LABS: Glucose,Whole Blood 164 mg/dL (75-99)
--- NOTE | 2021-02-21 08:39 | P.PN ---
Subjective Patient is seen in follow-up for acute kidney injury. Hemodialysis dependent. Started on dialysis 02/20/2021. Oliguric. On Levophed. Receiving tube feeds. Vital signs are stable. On vasopressor support. HEENT: Intubated. LUNGS: Breath sounds decreased. HEART: Tachycardic. ABDOMEN: Soft, obese. EXTREMITITES: 1+ edema. Objective - Vital Signs Vital signs: Vital Signs Temp 98.2 F 02/21/21 04:30 Pulse 111 H 02/21/21 04:30 Resp 32 H 02/21/21 04:30 BP 89/52 02/20/21 19:30 Pulse Ox 97 02/21/21 04:30 Intake & Output 02/20/21 02/21/21 02/21/21 18:59 06:59 18:59 Intake Total 3839.370 1816.977 360 Output Total 20 10 10 Balance 3819.370 1806.977 350 Weight 140 kg 142 kg Intake: IV 2859 992 162 PRESSURE BAGS Sodium 54 72 12 chloride 0.9 Sodium Chloride 0.9% 1, 2130 000 ml @ 50 mls/hr IV . Q20H [facility]ANA Rx#:[id number] Sodium Chloride 0.9% 1, 675 920 150 000 ml @ 75 mls/hr IV . [id number] [facility]RIANA Rx#:[id number] Intake, IV Titration 296.370 106.977 Amount Insulin Regular 100 unit 36.417 45.250 In Sodium Chloride 0.9% 100 ml @ Per Protocol IV .Q0M [facility]ANA Rx#:[id number] Norepinephrine 32 mg In 162.319 61.727 Sodium Chloride 0.9% 218 ml @ 0.05 MCG/KG/MIN 3. 202 mls/hr IV .Q24H [facility]ANA Rx#:[id number] propofoL 1,000 mg In 97.634 Empty Bag 1 bag @ Titrate IV .Q0M ADRIANA Rx#: [id number] Tube Feeding 264 358 78 Other 420 360 120 Output: Urine 20 10 10 Hemodialysis 0 Other: Voiding Method Indwelling Catheter Indwelling Catheter Indwelling Catheter ABP, PAP, CO, CI - Last Documented Arterial Blood Pressure 131/36 - Labs CBC & Chem 7: 02/21/21 03:00 02/21/21 03:00 Labs: Abnormal Lab Results - Last 24 Hours (Table) 02/20/21 02/20/21 02/20/21 Range/Units 09:33 10:08 11:21 WBC (3.8-10.6) k/uL RBC (3.80-5.40) m/uL Hgb (11.4-16.0) gm/dL Hct (34.0-46.0) % MCHC (31.0-37.0) g/dL RDW (11.5-15.5) % Neutrophils # (1.3-7.7) k/uL Lymphocytes # (1.0-4.8) k/uL ABG pH (7.35-7.45) ABG pCO2 (35-45) mmHg ABG pO2 (83-108) mmHg ABG O2 Saturation (94-97) % Chloride (98-107) mmol/L Carbon Dioxide (22-30) mmol/L BUN (7-17) mg/dL Creatinine (0.52-1.04) mg/dL Glucose (74-99) mg/dL POC Glucose (mg/dL) 192 H 179 H 182 H (75-99) mg/dL Calcium (8.4-10.2) mg/dL AST (14-36) U/L Alkaline Phosphatase (38-126) U/L Troponin I (0.000-0.034) ng/mL Total Protein (6.3-8.2) g/dL Albumin (3.5-5.0) g/dL Procalcitonin (0.02-0.09) ng/mL 02/20/21 02/20/21 02/20/21 Range/Units 12:03 12:55 12:55 WBC (3.8-10.6) k/uL RBC (3.80-5.40) m/uL Hgb (11.4-16.0) gm/dL Hct (34.0-46.0) % MCHC (31.0-37.0) g/dL RDW (11.5-15.5) % Neutrophils # (1.3-7.7) k/uL Lymphocytes # (1.0-4.8) k/uL ABG pH (7.35-7.45) ABG pCO2 (35-45) mmHg ABG pO2 (83-108) mmHg ABG O2 Saturation (94-97) % Chloride (98-107) mmol/L Carbon Dioxide (22-30) mmol/L BUN (7-17) mg/dL Creatinine (0.52-1.04) mg/dL Glucose (74-99) mg/dL POC Glucose (mg/dL) 173 H (75-99) mg/dL Calcium (8.4-10.2) mg/dL AST (14-36) U/L Alkaline Phosphatase (38-126) U/L Troponin I 1.570 H* (0.000-0.034) ng/mL Total Protein (6.3-8.2) g/dL Albumin (3.5-5.0) g/dL Procalcitonin 19.60 H (0.02-0.09) ng/mL 02/20/21 02/20/21 02/20/21 Range/Units 13:15 15:27 16:06 WBC (3.8-10.6) k/uL RBC (3.80-5.40) m/uL Hgb (11.4-16.0) gm/dL Hct (34.0-46.0) % MCHC (31.0-37.0) g/dL RDW (11.5-15.5) % Neutrophils # (1.3-7.7) k/uL Lymphocytes # (1.0-4.8) k/uL ABG pH (7.35-7.45) ABG pCO2 (35-45) mmHg ABG pO2 (83-108) mmHg ABG O2 Saturation (94-97) % Chloride (98-107) mmol/L Carbon Dioxide (22-30) mmol/L BUN (7-17) mg/dL Creatinine (0.52-1.04) mg/dL Glucose (74-99) mg/dL POC Glucose (mg/dL) 165 H 154 H 153 H (75-99) mg/dL Calcium (8.4-10.2) mg/dL AST (14-36) U/L Alkaline Phosphatase (38-126) U/L Troponin I (0.000-0.034) ng/mL Total Protein (6.3-8.2) g/dL Albumin (3.5-5.0) g/dL Procalcitonin (0.02-0.09) ng/mL 02/20/21 02/20/21 02/20/21 Range/Units 17:13 17:15 18:53 WBC (3.8-10.6) k/uL RBC (3.80-5.40) m/uL Hgb (11.4-16.0) gm/dL Hct (34.0-46.0) % MCHC (31.0-37.0) g/dL RDW (11.5-15.5) % Neutrophils # (1.3-7.7) k/uL Lymphocytes # (1.0-4.8) k/uL ABG pH (7.35-7.45) ABG pCO2 (35-45) mmHg ABG pO2 (83-108) mmHg ABG O2 Saturation (94-97) % Chloride (98-107) mmol/L Carbon Dioxide (22-30) mmol/L BUN (7-17) mg/dL Creatinine (0.52-1.04) mg/dL Glucose (74-99) mg/dL POC Glucose (mg/dL) 143 H 146 H (75-99) mg/dL Calcium (8.4-10.2) mg/dL AST (14-36) U/L Alkaline Phosphatase (38-126) U/L Troponin I 1.500 H* (0.000-0.034) ng/mL Total Protein (6.3-8.2) g/dL Albumin (3.5-5.0) g/dL Procalcitonin (0.02-0.09) ng/mL 02/20/21 02/20/21 02/20/21 Range/Units 19:34 21:13 22:21 WBC (3.8-10.6) k/uL RBC (3.80-5.40) m/uL Hgb (11.4-16.0) gm/dL Hct (34.0-46.0) % MCHC (31.0-37.0) g/dL RDW (11.5-15.5) % Neutrophils # (1.3-7.7) k/uL Lymphocytes # (1.0-4.8) k/uL ABG pH (7.35-7.45) ABG pCO2 (35-45) mmHg ABG pO2 (83-108) mmHg ABG O2 Saturation (94-97) % Chloride (98-107) mmol/L Carbon Dioxide (22-30) mmol/L BUN (7-17) mg/dL Creatinine (0.52-1.04) mg/dL Glucose (74-99) mg/dL POC Glucose (mg/dL) 157 H 158 H 177 H (75-99) mg/dL Calcium (8.4-10.2) mg/dL AST (14-36) U/L Alkaline Phosphatase (38-126) U/L Troponin I (0.000-0.034) ng/mL Total Protein (6.3-8.2) g/dL Albumin (3.5-5.0) g/dL Procalcitonin (0.02-0.09) ng/mL 02/20/21 02/20/21 02/21/21 Range/Units 23:07 23:57 02:19 WBC (3.8-10.6) k/uL RBC (3.80-5.40) m/uL Hgb (11.4-16.0) gm/dL Hct (34.0-46.0) % MCHC (31.0-37.0) g/dL RDW (11.5-15.5) % Neutrophils # (1.3-7.7) k/uL Lymphocytes # (1.0-4.8) k/uL ABG pH (7.35-7.45) ABG pCO2 (35-45) mmHg ABG pO2 (83-108) mmHg ABG O2 Saturation (94-97) % Chloride (98-107) mmol/L Carbon Dioxide (22-30) mmol/L BUN (7-17) mg/dL Creatinine (0.52-1.04) mg/dL Glucose (74-99) mg/dL POC Glucose (mg/dL) 164 H 167 H 171 H (75-99) mg/dL Calcium (8.4-10.2) mg/dL AST (14-36) U/L Alkaline Phosphatase (38-126) U/L Troponin I (0.000-0.034) ng/mL Total Protein (6.3-8.2) g/dL Albumin (3.5-5.0) g/dL Procalcitonin (0.02-0.09) ng/mL 02/21/21 02/21/21 02/21/21 Range/Units 03:00 03:00 03:05 WBC 23.0 H (3.8-10.6) k/uL RBC 3.10 L (3.80-5.40) m/uL Hgb 8.8 L (11.4-16.0) gm/dL Hct 29.5 L (34.0-46.0) % MCHC 29.6 L (31.0-37.0) g/dL RDW 17.2 H (11.5-15.5) % Neutrophils # 21.4 H (1.3-7.7) k/uL Lymphocytes # 0.7 L (1.0-4.8) k/uL ABG pH (7.35-7.45) ABG pCO2 (35-45) mmHg ABG pO2 (83-108) mmHg ABG O2 Saturation (94-97) % Chloride 113 H (98-107) mmol/L Carbon Dioxide 18 L (22-30) mmol/L BUN 59 H (7-17) mg/dL Creatinine 3.65 H (0.52-1.04) mg/dL Glucose 158 H (74-99) mg/dL POC Glucose (mg/dL) 173 H (75-99) mg/dL Calcium 6.8 L (8.4-10.2) mg/dL AST 123 H (14-36) U/L Alkaline Phosphatase 203 H (38-126) U/L Troponin I (0.000-0.034) ng/mL Total Protein 4.9 L (6.3-8.2) g/dL Albumin 2.1 L (3.5-5.0) g/dL Procalcitonin (0.02-0.09) ng/mL 02/21/21 02/21/21 02/21/21 Range/Units 06:03 06:04 07:00 WBC (3.8-10.6) k/uL RBC (3.80-5.40) m/uL Hgb (11.4-16.0) gm/dL Hct (34.0-46.0) % MCHC (31.0-37.0) g/dL RDW (11.5-15.5) % Neutrophils # (1.3-7.7) k/uL Lymphocytes # (1.0-4.8) k/uL ABG pH 7.25 L (7.35-7.45) ABG pCO2 47 H (35-45) mmHg ABG pO2 123 H (83-108) mmHg ABG O2 Saturation 98.9 H (94-97) % Chloride (98-107) mmol/L Carbon Dioxide (22-30) mmol/L BUN (7-17) mg/dL Creatinine (0.52-1.04) mg/dL Glucose (74-99) mg/dL POC Glucose (mg/dL) 172 H 168 H (75-99) mg/dL Calcium (8.4-10.2) mg/dL AST (14-36) U/L Alkaline Phosphatase (38-126) U/L Troponin I (0.000-0.034) ng/mL Total Protein (6.3-8.2) g/dL Albumin (3.5-5.0) g/dL Procalcitonin (0.02-0.09) ng/mL 02/21/21 Range/Units 08:16 WBC (3.8-10.6) k/uL RBC (3.80-5.40) m/uL Hgb (11.4-16.0) gm/dL Hct (34.0-46.0) % MCHC (31.0-37.0) g/dL RDW (11.5-15.5) % Neutrophils # (1.3-7.7) k/uL Lymphocytes # (1.0-4.8) k/uL ABG pH (7.35-7.45) ABG pCO2 (35-45) mmHg ABG pO2 (83-108) mmHg ABG O2 Saturation (94-97) % Chloride (98-107) mmol/L Carbon Dioxide (22-30) mmol/L BUN (7-17) mg/dL Creatinine (0.52-1.04) mg/dL Glucose (74-99) mg/dL POC Glucose (mg/dL) 164 H (75-99) mg/dL Calcium (8.4-10.2) mg/dL AST (14-36) U/L Alkaline Phosphatase (38-126) U/L Troponin I (0.000-0.034) ng/mL Total Protein (6.3-8.2) g/dL Albumin (3.5-5.0) g/dL Procalcitonin (0.02-0.09) ng/mL Microbiology - Last 24 Hours (Table) 02/20/21 09:01 Blood Culture Gram Stain - Preliminary Blood 02/20/21 09:01 Blood Culture - Final Blood 02/17/21 12:10 Blood Culture Gram Stain - Final Blood Blood Culture - Final Staphylococcus aureus Assessment and Plan Plan: Assessment: 1. Acute kidney injury secondary to ATN secondary to cardiac arrest and septic shock. Baseline creatinine is near 1. Oliguric. Diuretic unresponsive. Started on hemodialysis 02/20/2021. No hydronephrosis noted on kidney ultrasound. 2. Septic shock secondary to staph pneumonia and bacteremia on antibiotics. 3. Status post cardiac arrest on 02/13/2021. 4. Acute SD status post stenting of the LAD on 02/13/2021. 5. Diabetes. 6. Metabolic acidosis secondary to acute kidney injury and IVFs. Plan: Second treatment of hemodialysis today. Maintain tube feeding. Wean FiO2 and vasopressors. Add bicarb. Continue to assess daily for need for renal replacement therapy. Phosphorus normal at 4.1.
--- NOTE | 2021-02-21 09:01 | XR ---
EXAMINATION TYPE: XR chest 1V portable DATE OF EXAM: 02/21/2021 COMPARISON: 02/20/2021 HISTORY: Tube placement TECHNIQUE: Single frontal view of the chest is obtained. FINDINGS: ET and NG tube stable. There is diffuse bilateral infiltrate stable. Consolidative process left lower lobe. No pneumothorax. Central line stable. Small left pleural effusion. IMPRESSION: Correlate for CHF versus diffuse interstitial and alveolar pneumonia.
--- NOTE | 2021-02-21 09:17 | P.PN ---
Subjective Progress Note Date: 02/21/21 65-year-old female with a history of diabetes, hypothyroidism, hyperlipidemia, hypertension, gastroesophageal reflux disease, and obesity, who was seen in the emergency room, on February 13. She apparently had a witnessed cardiac arrest in front of family members. EMS was called, and ACLS protocol was begun. The patient was noted to be in ventricular fibrillation. She apparently was intubated, and placed on the monitor and found to have ventricular fibrillation, and was defibrillated, a total of 5 times he was given 450 mg of amiodarone. She did apparently have spontaneous circulation briefly upon arrival, but apparently did develop PEA rhythm in the emergency room, and ACLS was continued. The patient was taken to the [facility], and found to have a complete occlusion of the LAD. 2 stents replaced, via the right radial approach. The patient came back to the intensive care unit on the ventilator. Chest x-ray today shows basilar density at the left hemidiaphragm likely related to atelectasis. Left- sided rib fractures, stable exam. Brain CT from yesterday shows degenerative and nonspecific white matter changes, and MRI was recommended to exclude acute ischemia. No acute hemorrhage or mass effect. Neurology is following, EEG has been completed showing background slowing of mild to moderate degree suggestive of generalized cerebral dysfunction as can be seen with toxic metabolic encephalopathy, no epileptiform activity. Urine drug screen showed benzodiazepines and marijuana. COVID-19 PCR was negative. Sputum culture has been sent showing no PMNs, moderate gram-positive cocci. On 02/16/2021 patient was weaned and extubated from mechanical ventilator last night, however through the night of her breathing had worsened, and exhalation had to be placed on BiPAP support. She had to be reintubated on 02/17/2021. The patient was thought to have possibly aspirated, and remains on cefepime. She is on the volume assist control mode, rate now 28, tidal volume 400, FiO2 60%, and PEEP of 15. Blood gases show from today shows a pH of 7.21 with a pCO2 of 48 and pO2 o f 98. The peak airway pressure is 30. The chest x-ray from today showing bibasilar atelectatic changes and infiltrates. ET tube is sitting high in the trachea and it may benefit from pushing and thereby around 1 cm. No significant orotracheal secretions. The patient is obese and she has a short thick neck, likely obvious features of obstructive sleep apnea. She'll follow-up The patient's getting saline at KVO , and the patient has developed an acute kidney injury in the renal function progressively getting worse. Urine output is in order of 0-5 mL an hour. Fluid balance has been positive and the patient has gained at least 10 kg since this current hospitalization. On her blood work today, the patient has a creatinine of 3.75 with a BUN of 65, serum bicarb is at 17 with a potassium level of 4.1, the white cell is at 15.8 with a hemoglobin of 9.3 and a platelet count of 152. She is obviously hemodynamically unstable. She had progressive worsening in her blood pressure control and the patient is currently on norepinephrine infusion running at 34 g per minute. She is sadated , propofol at 40 mcg/kg/m, Nimbex off, insulin at 4 units per hour, and vital high protein at 24 mL an hour, which is goal. The patient likely aspirated, which is why she was reintubated. Pro-calcitonin level is elevated at 1.37. Sputum from February 17 showed staph aureus. Blood cultures from the same day also show staph aureus. The Staphylo coccus aureus is a methicillin sensitive staph aureus. The patients cefepime will be discontinued and the vancomycin will be discontinued, and the patient we placed on Levaquin. On today's evaluation of 02/21/2021, the patient is post cardiac arrest and septic shock and the patient is currently being seen for a follow-up in intensive care unit. On today's evaluation, the patient remains off sedation the patient was taken off propofol yesterday morning and she has been also off paralytics. despite that, she remains completely unresponsive to any verbal or painful stimulation.. This patient is not following any commands. She is not even grimacing to painful stimulation. treatment are equal and reactive to light. no seizure activity has been noted. CAT scan of the brain that was done at time of admission showed nonspecific white matter changes and no follow-up CAT scan was done since as the patient's condition decompensated significantly. EEG was consistent with some encephalopathy. this morning, the patient remains on a assist-control mode of mechanical ventilation. She is on a rate of 28 with a tidal volume of 400 FiO2 is at60% with a PEEP of 15. The chest x-ray showed lower lobe bilateral pulmonary infiltrates. ET tube is in a good location. the peak airway pressure is around 28. the blood gases from today showed a pH of 7.25 with a pCO2 of 47 and pO2 of 123 and this was done and FiO2 of 60%. as such, the patient is demonstrating adequate oxygenation special that her current pulse ox is around 98%. hemodynamically, the patient was septic. Blood cultures turn down man to be positive for staph aureus, MSSA. I give the patient does of vancomycin yesterday and I covered her with IV cefepime. she did receive a total of 2 L of IV fluids yesterday in consultation for septic shock. following that, she was started on a combination of norepinephrine and vasopressin. overnight, vasopressin was discontinued and the patient is currently on norepinephrine running at 23 g her minutes. urine output is 0 and the patient is currently undergoing hemodialysis. she did undergo insertion of dialysis yesterday and it is her second session today. metabolically, her electrolytes showing a sodium level of 141, serum bicarbonate of 18, creatinine is at 3.6 with a mean of 59. her troponin peaked at 1.5. Her white cell count currently is at 23 with a hemoglobin of 8.8 and a platelet count of 150. she is receiving enteral feeding for nutritional support. She was started on vital high protein Actigall of 55 mL an hour. she is also receiving water flushes through her OG. active issue for now is her unresponsiveness specially off sedation for the past 24 hours. cardiac rhythm is sinus. Echocardiogram showed a preserved LV function post cardiac arrest and post myocardial infarction. Objective - Vital Signs Vital signs: Vital Signs Temp 98.7 F 02/21/21 08:00 Pulse 107 H 02/21/21 08:30 Resp 32 H 02/21/21 08:30 BP 89/52 02/21/21 08:30 Pulse Ox 97 02/21/21 08:30 Intake & Output 02/20/21 02/21/21 02/21/21 18:59 06:59 18:59 Intake Total 3839.370 1816.977 360 Output Total 20 10 10 Balance 3819.370 1806.977 350 Weight 140 kg 142 kg Intake: IV 2859 992 162 PRESSURE BAGS Sodium 54 72 12 chloride 0.9 Sodium Chloride 0.9% 1, 2130 000 ml @ 50 mls/hr IV . [facility] Rx#:[id number] Sodium Chloride 0.9% 1, 675 920 150 000 ml @ 75 mls/hr IV . [id number] [facility] Rx#:[id number] Intake, IV Titration 296.370 106.977 Amount Insulin Regular 100 unit 36.417 45.250 In Sodium Chloride 0.9% 100 ml @ Per Protocol IV .Q0M [facility] Rx#:[id number] Norepinephrine 32 mg In 162.319 61.727 Sodium Chloride 0.9% 218 ml @ 0.05 MCG/KG/MIN 3. 202 mls/hr IV .Q24H [facility] Rx#:[id number] propofoL 1,000 mg In 97.634 Empty Bag 1 bag @ Titrate IV .Q0M [facility] Rx#: [id number] Tube Feeding 264 358 78 Other 420 360 120 Output: Urine 20 10 10 Hemodialysis 0 Other: Voiding Method Indwelling Catheter Indwelling Catheter Indwelling Catheter ABP, PAP, CO, CI - Last Documented Arterial Blood Pressure 79/32 - Exam No acute distress, sedated , with an orally placed endotracheal tube and NG tube. The patient is morbidly obese with obvious features of obstructive sleep apnea. She is currently intubated on a mechanical ventilator. She is off paralytics and sedated HEENT examination is grossly unremarkable. Neck supple. Full range of motion. No adenopathy thyromegaly or neck vein distention. Cardiovascular examination reveals regular rhythm rate. S1-S2 normal. No S3 or S4. No discernible murmur noted. Heart sounds are distant. Lungs reveal coarse bilateral rhonchi and bilateral crackles. Breath sounds equal bilaterally. No wheezes. Abdomen soft, with bowel sounds. Extremities are intact. No cyanosis or clubbing. Mild edema present. the patient is cold and clammy and there is marked diminished and the pulses in all 4 extremities. Skin is without rash or lesion. Neurologic examination cannot be adequately assessed as the patient's off sedated , completely unresponsive at this point, not following any verbal coommands or painful stimulation. pupils are equal and reactive to light. pupillary response is sluggish. She has a weak cough and mechanism and a weak gag. motor function cannot be assessed. sensory function cannot be assessed. no seizure activity has been noted on today's evaluation. - Labs CBC & Chem 7: 02/21/21 03:00 02/21/21 03:00 Labs: Abnormal Lab Results - Last 24 Hours (Table) 02/20/21 02/20/21 02/20/21 Range/Units 09:33 10:08 11:21 WBC (3.8-10.6) k/uL RBC (3.80-5.40) m/uL Hgb (11.4-16.0) gm/dL Hct (34.0-46.0) % MCHC (31.0-37.0) g/dL RDW (11.5-15.5) % Neutrophils # (1.3-7.7) k/uL Lymphocytes # (1.0-4.8) k/uL ABG pH (7.35-7.45) ABG pCO2 (35-45) mmHg ABG pO2 (83-108) mmHg ABG O2 Saturation (94-97) % Chloride (98-107) mmol/L Carbon Dioxide (22-30) mmol/L BUN (7-17) mg/dL Creatinine (0.52-1.04) mg/dL Glucose (74-99) mg/dL POC Glucose (mg/dL) 192 H 179 H 182 H (75-99) mg/dL Calcium (8.4-10.2) mg/dL AST (14-36) U/L Alkaline Phosphatase (38-126) U/L Troponin I (0.000-0.034) ng/mL Total Protein (6.3-8.2) g/dL Albumin (3.5-5.0) g/dL Procalcitonin (0.02-0.09) ng/mL 02/20/21 02/20/21 02/20/21 Range/Units 12:03 12:55 12:55 WBC (3.8-10.6) k/uL RBC (3.80-5.40) m/uL Hgb (11.4-16.0) gm/dL Hct (34.0-46.0) % MCHC (31.0-37.0) g/dL RDW (11.5-15.5) % Neutrophils # (1.3-7.7) k/uL Lymphocytes # (1.0-4.8) k/uL ABG pH (7.35-7.45) ABG pCO2 (35-45) mmHg ABG pO2 (83-108) mmHg ABG O2 Saturation (94-97) % Chloride (98-107) mmol/L Carbon Dioxide (22-30) mmol/L BUN (7-17) mg/dL Creatinine (0.52-1.04) mg/dL Glucose (74-99) mg/dL POC Glucose (mg/dL) 173 H (75-99) mg/dL Calcium (8.4-10.2) mg/dL AST (14-36) U/L Alkaline Phosphatase (38-126) U/L Troponin I 1.570 H* (0.000-0.034) ng/mL Total Protein (6.3-8.2) g/dL Albumin (3.5-5.0) g/dL Procalcitonin 19.60 H (0.02-0.09) ng/mL 02/20/21 02/20/21 02/20/21 Range/Units 13:15 15:27 16:06 WBC (3.8-10.6) k/uL RBC (3.80-5.40) m/uL Hgb (11.4-16.0) gm/dL Hct (34.0-46.0) % MCHC (31.0-37.0) g/dL RDW (11.5-15.5) % Neutrophils # (1.3-7.7) k/uL Lymphocytes # (1.0-4.8) k/uL ABG pH (7.35-7.45) ABG pCO2 (35-45) mmHg ABG pO2 (83-108) mmHg ABG O2 Saturation (94-97) % Chloride (98-107) mmol/L Carbon Dioxide (22-30) mmol/L BUN (7-17) mg/dL Creatinine (0.52-1.04) mg/dL Glucose (74-99) mg/dL POC Glucose (mg/dL) 165 H 154 H 153 H (75-99) mg/dL Calcium (8.4-10.2) mg/dL AST (14-36) U/L Alkaline Phosphatase (38-126) U/L Troponin I (0.000-0.034) ng/mL Total Protein (6.3-8.2) g/dL Albumin (3.5-5.0) g/dL Procalcitonin (0.02-0.09) ng/mL 02/20/21 02/20/21 02/20/21 Range/Units 17:13 17:15 18:53 WBC (3.8-10.6) k/uL RBC (3.80-5.40) m/uL Hgb (11.4-16.0) gm/dL Hct (34.0-46.0) % MCHC (31.0-37.0) g/dL RDW (11.5-15.5) % Neutrophils # (1.3-7.7) k/uL Lymphocytes # (1.0-4.8) k/uL ABG pH (7.35-7.45) ABG pCO2 (35-45) mmHg ABG pO2 (83-108) mmHg ABG O2 Saturation (94-97) % Chloride (98-107) mmol/L Carbon Dioxide (22-30) mmol/L BUN (7-17) mg/dL Creatinine (0.52-1.04) mg/dL Glucose (74-99) mg/dL POC Glucose (mg/dL) 143 H 146 H (75-99) mg/dL Calcium (8.4-10.2) mg/dL AST (14-36) U/L Alkaline Phosphatase (38-126) U/L Troponin I 1.500 H* (0.000-0.034) ng/mL Total Protein (6.3-8.2) g/dL Albumin (3.5-5.0) g/dL Procalcitonin (0.02-0.09) ng/mL 02/20/21 02/20/21 02/20/21 Range/Units 19:34 21:13 22:21 WBC (3.8-10.6) k/uL RBC (3.80-5.40) m/uL Hgb (11.4-16.0) gm/dL Hct (34.0-46.0) % MCHC (31.0-37.0) g/dL RDW (11.5-15.5) % Neutrophils # (1.3-7.7) k/uL Lymphocytes # (1.0-4.8) k/uL ABG pH (7.35-7.45) ABG pCO2 (35-45) mmHg ABG pO2 (83-108) mmHg ABG O2 Saturation (94-97) % Chloride (98-107) mmol/L Carbon Dioxide (22-30) mmol/L BUN (7-17) mg/dL Creatinine (0.52-1.04) mg/dL Glucose (74-99) mg/dL POC Glucose (mg/dL) 157 H 158 H 177 H (75-99) mg/dL Calcium (8.4-10.2) mg/dL AST (14-36) U/L Alkaline Phosphatase (38-126) U/L Troponin I (0.000-0.034) ng/mL Total Protein (6.3-8.2) g/dL Albumin (3.5-5.0) g/dL Procalcitonin (0.02-0.09) ng/mL 02/20/21 02/20/21 02/21/21 Range/Units 23:07 23:57 02:19 WBC (3.8-10.6) k/uL RBC (3.80-5.40) m/uL Hgb (11.4-16.0) gm/dL Hct (34.0-46.0) % MCHC (31.0-37.0) g/dL RDW (11.5-15.5) % Neutrophils # (1.3-7.7) k/uL Lymphocytes # (1.0-4.8) k/uL ABG pH (7.35-7.45) ABG pCO2 (35-45) mmHg ABG pO2 (83-108) mmHg ABG O2 Saturation (94-97) % Chloride (98-107) mmol/L Carbon Dioxide (22-30) mmol/L BUN (7-17) mg/dL Creatinine (0.52-1.04) mg/dL Glucose (74-99) mg/dL POC Glucose (mg/dL) 164 H 167 H 171 H (75-99) mg/dL Calcium (8.4-10.2) mg/dL AST (14-36) U/L Alkaline Phosphatase (38-126) U/L Troponin I (0.000-0.034) ng/mL Total Protein (6.3-8.2) g/dL Albumin (3.5-5.0) g/dL Procalcitonin (0.02-0.09) ng/mL 02/21/21 02/21/21 02/21/21 Range/Units 03:00 03:00 03:05 WBC 23.0 H (3.8-10.6) k/uL RBC 3.10 L (3.80-5.40) m/uL Hgb 8.8 L (11.4-16.0) gm/dL Hct 29.5 L (34.0-46.0) % MCHC 29.6 L (31.0-37.0) g/dL RDW 17.2 H (11.5-15.5) % Neutrophils # 21.4 H (1.3-7.7) k/uL Lymphocytes # 0.7 L (1.0-4.8) k/uL ABG pH (7.35-7.45) ABG pCO2 (35-45) mmHg ABG pO2 (83-108) mmHg ABG O2 Saturation (94-97) % Chloride 113 H (98-107) mmol/L Carbon Dioxide 18 L (22-30) mmol/L BUN 59 H (7-17) mg/dL Creatinine 3.65 H (0.52-1.04) mg/dL Glucose 158 H (74-99) mg/dL POC Glucose (mg/dL) 173 H (75-99) mg/dL Calcium 6.8 L (8.4-10.2) mg/dL AST 123 H (14-36) U/L Alkaline Phosphatase 203 H (38-126) U/L Troponin I (0.000-0.034) ng/mL Total Protein 4.9 L (6.3-8.2) g/dL Albumin 2.1 L (3.5-5.0) g/dL Procalcitonin (0.02-0.09) ng/mL 02/21/21 02/21/21 02/21/21 Range/Units 06:03 06:04 07:00 WBC (3.8-10.6) k/uL RBC (3.80-5.40) m/uL Hgb (11.4-16.0) gm/dL Hct (34.0-46.0) % MCHC (31.0-37.0) g/dL RDW (11.5-15.5) % Neutrophils # (1.3-7.7) k/uL Lymphocytes # (1.0-4.8) k/uL ABG pH 7.25 L (7.35-7.45) ABG pCO2 47 H (35-45) mmHg ABG pO2 123 H (83-108) mmHg ABG O2 Saturation 98.9 H (94-97) % Chloride (98-107) mmol/L Carbon Dioxide (22-30) mmol/L BUN (7-17) mg/dL Creatinine (0.52-1.04) mg/dL Glucose (74-99) mg/dL POC Glucose (mg/dL) 172 H 168 H (75-99) mg/dL Calcium (8.4-10.2) mg/dL AST (14-36) U/L Alkaline Phosphatase (38-126) U/L Troponin I (0.000-0.034) ng/mL Total Protein (6.3-8.2) g/dL Albumin (3.5-5.0) g/dL Procalcitonin (0.02-0.09) ng/mL 02/21/21 Range/Units 08:16 WBC (3.8-10.6) k/uL RBC (3.80-5.40) m/uL Hgb (11.4-16.0) gm/dL Hct (34.0-46.0) % MCHC (31.0-37.0) g/dL RDW (11.5-15.5) % Neutrophils # (1.3-7.7) k/uL Lymphocytes # (1.0-4.8) k/uL ABG pH (7.35-7.45) ABG pCO2 (35-45) mmHg ABG pO2 (83-108) mmHg ABG O2 Saturation (94-97) % Chloride (98-107) mmol/L Carbon Dioxide (22-30) mmol/L BUN (7-17) mg/dL Creatinine (0.52-1.04) mg/dL Glucose (74-99) mg/dL POC Glucose (mg/dL) 164 H (75-99) mg/dL Calcium (8.4-10.2) mg/dL AST (14-36) U/L Alkaline Phosphatase (38-126) U/L Troponin I (0.000-0.034) ng/mL Total Protein (6.3-8.2) g/dL Albumin (3.5-5.0) g/dL Procalcitonin (0.02-0.09) ng/mL Microbiology - Last 24 Hours (Table) 02/20/21 09:01 Blood Culture Gram Stain - Preliminary Blood 02/20/21 09:01 Blood Culture - Final Blood 02/17/21 12:10 Blood Culture Gram Stain - Final Blood Blood Culture - Final Staphylococcus aureus Assessment and Plan Plan: 1 [id number] cardiopulmonary arrest, with cardiopulmonary resuscitation, and eventual return of spontaneous circulation. The patient appeared was intubated in the field, and defibrillated 5 times. She did have return of spontaneous circulation, but was also found to have pulseless electrical activity (PEA). 2 Acute STEMI, anterior wall and the patient is Status post stent placement, to the 100% occluded LAD, via the right radial approach. 3 Routine postoperative ventilator management, status post intubation on , extubation on 02/16/2021, and reintubation on 02/17/2021. 4 septic shock secondary to Methicillin sensitive staph aureus bacteremia/pneumonia/sepsis. the patient is currently on a combination of antibiotics and pressors. 5 shock, and the patient is profoundly hypotensive on pressors and higher dose of norepinephrine running at 23 g per minute. This is likely septic shock. The patient had a cardiac rhythm showed a preserved LV function. She is post acute ST segment elevation myocardial infarction and 6 acute kidney injury/ATN secondary to cardiac arrest/shock. The findings on the case. The patient is oliguric and the patient is developing fluid retention. the patient receives her first session of hemodialysis yesterday, second session is to follow 7 History of hyperlipidemia. 8 History of hypertension. 9 Morbid obesity. 10 History of gastroesophageal reflux disease. 11 New-onset atrial fibrillation, converted into normal sinus rhythm and currently the patient is sinus tachycardia. 12 History of diabetes mellitus. 13 History of hypothyroidism. 14 metabolic acidosis secondary to above , metabolic acidosis of been improving 15 unresponsive/comatose state , post cardiac arrest. The patient was at one point more responsive. post intubation, she was taken off sedation patient off sedation paralytics for the past 24 hours and currently she is not showing any signs of neurologic responsiveness. She has been off sedation for the past 24 hours. Plan: Continue vent support, drop the FiO2 down to 50% wean down the norepinephrine infusion as tolerated to maintain mean arterial pressure above 65. I think there is some room for weaning of the norepinephrine infusion for now. The patient is currently on vasopressin Continue IV cefepime for now regarding MSSA sepsis stop the Levaquin Proceed with hemodialysis today Continue aspirin and Brilinta Cardiac rhythm is sinus Blood sugar control is through insulin drip running at 3.5 units an hour Of concern is her mental status. Keep the patient off sedation. reconsult neurology. Obtain a follow-up EEG and a CAT scan of the brain once she has completed her dialysis and as long as she remains hemodynamically stable. Continue enteral feeding for nutritional support Condition of his is critical and will continue to follow make further recommendations based on her progress. Condition is extremely critical. This patient is a very high mortality risk and she has signs of multisystem organ failure post cardiac arrest. We'll continue to follow. My working diagnosis septic shock post cardiac arrest, the patient is hemodynamically unstable and the patient has developed significant renal failure. Extremely critical. This evaluation was done and morning 30 minutes. Time with Patient: Greater than 30
[2021-02-21 09:29] LABS: Glucose,Whole Blood 150 mg/dL (75-99)
[2021-02-21] MEDS: CEFEPIME 1 GM in SODIUM CHLORIDE 0.9% 50 ML IVPB SCH ×2 (09:53→20:35)
[2021-02-21] MEDS: PANTOPRAZOLE 40 MG/10 ML VIAL IVP SCH (09:53)
[2021-02-21] MEDS: CHLORHEXIDINE GLUCONATE 15 ML CUP MUCOUS MEM SCH ×2 (09:54→20:35)
[2021-02-21] MEDS: TICAGRELOR 90 MG TAB PO SCH ×2 (09:54→20:35)
[2021-02-21] MEDS: ASPIRIN 81 MG PO SCH (09:54)
[2021-02-21 10:42] LABS: Glucose,Whole Blood 151 mg/dL (75-99)
[2021-02-21] MEDS: SODIUM BICARBONATE TAB 650 MG TAB PO SCH ×2 (10:51→20:35)
--- NOTE | 2021-02-21 11:00 | P.PN ---
Subjective Progress Note Date: 02/21/21 I am seeing the patient for the first time during this admission. Please refer to Dr. Strong's note for further details. The patient continues to be unresponsive even though he has been off Propofol for 24 hours. Her creatnine is trending up and last creatnine is 3.65. On presentation it was 0.91 Her sugar is in the range of 160-170's. Her calcium is 6.8 last on 02/21/21 Patient last viitals is arterial BP 79/32, HR 107, RR 32, Tempt 98.7axillary and pulse oxygen 97% on 60% FiO2. Per the patient's nurse no seizure-like activity is seen. Patient continues to be intubated and on ventilator and is on Norepinephrine. Per the nurse patient last IV sedation was 8am on 02/20/21 for IV Propofol. Patient is getting dialysis this morning. Objective - Vital Signs Vital signs: Vital Signs Temp 98.7 F 02/21/21 08:00 Pulse 107 H 02/21/21 08:30 Resp 32 H 02/21/21 08:30 BP 89/52 02/21/21 08:30 Pulse Ox 97 02/21/21 08:30 Intake & Output 02/20/21 02/21/21 02/21/21 18:59 06:59 18:59 Intake Total 3839.370 1816.977 509.397 Output Total 20 10 15 Balance 3819.370 1806.977 494.397 Weight 140 kg 142 kg Intake: IV 2859 992 243 PRESSURE BAGS Sodium 54 72 18 chloride 0.9 Sodium Chloride 0.9% 1, 2130 000 ml @ 50 mls/hr IV . Q20H ADRIANA Rx#:[id number] Sodium Chloride 0.9% 1, 675 920 225 000 ml @ 75 mls/hr IV . [id number] ADRIANA Rx#:[id number] Intake, IV Titration 296.370 106.977 24.397 Amount Insulin Regular 100 unit 36.417 45.250 In Sodium Chloride 0.9% 100 ml @ Per Protocol IV .Q0M ADRIANA Rx#:[id number] Norepinephrine 32 mg In 162.319 61.727 24.397 Sodium Chloride 0.9% 218 ml @ 0.05 MCG/KG/MIN 3. 202 mls/hr IV .Q24H ADRIANA Rx#:[id number] propofoL 1,000 mg In 97.634 Empty Bag 1 bag @ Titrate IV .Q0M ADRIANA Rx#: [id number] Tube Feeding 264 358 122 Other 420 360 120 Output: Urine 20 10 15 Hemodialysis 0 Other: Voiding Method Indwelling Catheter Indwelling Catheter Indwelling Catheter ABP, PAP, CO, CI - Last Documented Arterial Blood Pressure 79/32 - Exam GENERAL: The patient is morbid obese woman, lying in bed and does not seem in acute distress. LUNG: Clear to auscultation bilaterally no wheezing noted throughout. Not labored breathing. Intubated on ventilator. NEUROLOGICAL: Limited because of condition. Last IV sedation was on 02/20/21 at 8am. Higher mental function: The patient is comatose GCS 7 ( E1, VT1, M5). The patient is not verbally responsive or following commands. Cranial nerves: I manually opened her eyes. The primary gaze is midline. The pupils are round, equal (3-4mm) and reactive to light. Positive corneal reflex bilaterally. No facial weaknesss. Is breathing over the vent. Negative gag reflex. Motor: The strength is hard to assess because of her condition. But was minimally withdrawing to painful stimuli over the left upper extremity and left lower extremity. Normal tone and bulk. Cerebellum: Could not assess. Sensation: Could not assess light touch but seem to notice painful stimuli over the left side. WORK-UP: * AST of 123 which is trending up while ALTs 25. * His creatnine is trending up and last creatnine is 3.65. On presentation it was 0.91 * Patient white blood cell is trending up is 23.0 * Computed tomography scan of head 02/14/21: Is reported as degenerative and nonspecific white matter changes are nonspecific. * EEG was abnormal due to background slowing of mild to moderate degree. This is suggestive of generalized cerebral dysfunction as can be seen with toxic metabolic encephalopathy or from diffuse structural brain abnormality. No epileptiform activity was seen. * 2-D echo was reported as left ventricular size is normal. Mild concentric left ventricular hypertrophy. Ejection fraction of 50-55%. - Labs CBC & Chem 7: 02/21/21 03:00 02/21/21 03:00 Labs: Abnormal Lab Results - Last 24 Hours (Table) 02/20/21 02/20/21 02/20/21 Range/Units 09:33 10:08 11:21 WBC (3.8-10.6) k/uL RBC (3.80-5.40) m/uL Hgb (11.4-16.0) gm/dL Hct (34.0-46.0) % MCHC (31.0-37.0) g/dL RDW (11.5-15.5) % Neutrophils # (1.3-7.7) k/uL Lymphocytes # (1.0-4.8) k/uL ABG pH (7.35-7.45) ABG pCO2 (35-45) mmHg ABG pO2 (83-108) mmHg ABG O2 Saturation (94-97) % Chloride (98-107) mmol/L Carbon Dioxide (22-30) mmol/L BUN (7-17) mg/dL Creatinine (0.52-1.04) mg/dL Glucose (74-99) mg/dL POC Glucose (mg/dL) 192 H 179 H 182 H (75-99) mg/dL Calcium (8.4-10.2) mg/dL AST (14-36) U/L Alkaline Phosphatase (38-126) U/L Troponin I (0.000-0.034) ng/mL Total Protein (6.3-8.2) g/dL Albumin (3.5-5.0) g/dL Procalcitonin (0.02-0.09) ng/mL 02/20/21 02/20/21 02/20/21 Range/Units 12:03 12:55 12:55 WBC (3.8-10.6) k/uL RBC (3.80-5.40) m/uL Hgb (11.4-16.0) gm/dL Hct (34.0-46.0) % MCHC (31.0-37.0) g/dL RDW (11.5-15.5) % Neutrophils # (1.3-7.7) k/uL Lymphocytes # (1.0-4.8) k/uL ABG pH (7.35-7.45) ABG pCO2 (35-45) mmHg ABG pO2 (83-108) mmHg ABG O2 Saturation (94-97) % Chloride (98-107) mmol/L Carbon Dioxide (22-30) mmol/L BUN (7-17) mg/dL Creatinine (0.52-1.04) mg/dL Glucose (74-99) mg/dL POC Glucose (mg/dL) 173 H (75-99) mg/dL Calcium (8.4-10.2) mg/dL AST (14-36) U/L Alkaline Phosphatase (38-126) U/L Troponin I 1.570 H* (0.000-0.034) ng/mL Total Protein (6.3-8.2) g/dL Albumin (3.5-5.0) g/dL Procalcitonin 19.60 H (0.02-0.09) ng/mL 02/20/21 02/20/21 02/20/21 Range/Units 13:15 15:27 16:06 WBC (3.8-10.6) k/uL RBC (3.80-5.40) m/uL Hgb (11.4-16.0) gm/dL Hct (34.0-46.0) % MCHC (31.0-37.0) g/dL RDW (11.5-15.5) % Neutrophils # (1.3-7.7) k/uL Lymphocytes # (1.0-4.8) k/uL ABG pH (7.35-7.45) ABG pCO2 (35-45) mmHg ABG pO2 (83-108) mmHg ABG O2 Saturation (94-97) % Chloride (98-107) mmol/L Carbon Dioxide (22-30) mmol/L BUN (7-17) mg/dL Creatinine (0.52-1.04) mg/dL Glucose (74-99) mg/dL POC Glucose (mg/dL) 165 H 154 H 153 H (75-99) mg/dL Calcium (8.4-10.2) mg/dL AST (14-36) U/L Alkaline Phosphatase (38-126) U/L Troponin I (0.000-0.034) ng/mL Total Protein (6.3-8.2) g/dL Albumin (3.5-5.0) g/dL Procalcitonin (0.02-0.09) ng/mL 02/20/21 02/20/21 02/20/21 Range/Units 17:13 17:15 18:53 WBC (3.8-10.6) k/uL RBC (3.80-5.40) m/uL Hgb (11.4-16.0) gm/dL Hct (34.0-46.0) % MCHC (31.0-37.0) g/dL RDW (11.5-15.5) % Neutrophils # (1.3-7.7) k/uL Lymphocytes # (1.0-4.8) k/uL ABG pH (7.35-7.45) ABG pCO2 (35-45) mmHg ABG pO2 (83-108) mmHg ABG O2 Saturation (94-97) % Chloride (98-107) mmol/L Carbon Dioxide (22-30) mmol/L BUN (7-17) mg/dL Creatinine (0.52-1.04) mg/dL Glucose (74-99) mg/dL POC Glucose (mg/dL) 143 H 146 H (75-99) mg/dL Calcium (8.4-10.2) mg/dL AST (14-36) U/L Alkaline Phosphatase (38-126) U/L Troponin I 1.500 H* (0.000-0.034) ng/mL Total Protein (6.3-8.2) g/dL Albumin (3.5-5.0) g/dL Procalcitonin (0.02-0.09) ng/mL 02/20/21 02/20/21 02/20/21 Range/Units 19:34 21:13 22:21 WBC (3.8-10.6) k/uL RBC (3.80-5.40) m/uL Hgb (11.4-16.0) gm/dL Hct (34.0-46.0) % MCHC (31.0-37.0) g/dL RDW (11.5-15.5) % Neutrophils # (1.3-7.7) k/uL Lymphocytes # (1.0-4.8) k/uL ABG pH (7.35-7.45) ABG pCO2 (35-45) mmHg ABG pO2 (83-108) mmHg ABG O2 Saturation (94-97) % Chloride (98-107) mmol/L Carbon Dioxide (22-30) mmol/L BUN (7-17) mg/dL Creatinine (0.52-1.04) mg/dL Glucose (74-99) mg/dL POC Glucose (mg/dL) 157 H 158 H 177 H (75-99) mg/dL Calcium (8.4-10.2) mg/dL AST (14-36) U/L Alkaline Phosphatase (38-126) U/L Troponin I (0.000-0.034) ng/mL Total Protein (6.3-8.2) g/dL Albumin (3.5-5.0) g/dL Procalcitonin (0.02-0.09) ng/mL 02/20/21 02/20/21 02/21/21 Range/Units 23:07 23:57 02:19 WBC (3.8-10.6) k/uL RBC (3.80-5.40) m/uL Hgb (11.4-16.0) gm/dL Hct (34.0-46.0) % MCHC (31.0-37.0) g/dL RDW (11.5-15.5) % Neutrophils # (1.3-7.7) k/uL Lymphocytes # (1.0-4.8) k/uL ABG pH (7.35-7.45) ABG pCO2 (35-45) mmHg ABG pO2 (83-108) mmHg ABG O2 Saturation (94-97) % Chloride (98-107) mmol/L Carbon Dioxide (22-30) mmol/L BUN (7-17) mg/dL Creatinine (0.52-1.04) mg/dL Glucose (74-99) mg/dL POC Glucose (mg/dL) 164 H 167 H 171 H (75-99) mg/dL Calcium (8.4-10.2) mg/dL AST (14-36) U/L Alkaline Phosphatase (38-126) U/L Troponin I (0.000-0.034) ng/mL Total Protein (6.3-8.2) g/dL Albumin (3.5-5.0) g/dL Procalcitonin (0.02-0.09) ng/mL 02/21/21 02/21/21 02/21/21 Range/Units 03:00 03:00 03:05 WBC 23.0 H (3.8-10.6) k/uL RBC 3.10 L (3.80-5.40) m/uL Hgb 8.8 L (11.4-16.0) gm/dL Hct 29.5 L (34.0-46.0) % MCHC 29.6 L (31.0-37.0) g/dL RDW 17.2 H (11.5-15.5) % Neutrophils # 21.4 H (1.3-7.7) k/uL Lymphocytes # 0.7 L (1.0-4.8) k/uL ABG pH (7.35-7.45) ABG pCO2 (35-45) mmHg ABG pO2 (83-108) mmHg ABG O2 Saturation (94-97) % Chloride 113 H (98-107) mmol/L Carbon Dioxide 18 L (22-30) mmol/L BUN 59 H (7-17) mg/dL Creatinine 3.65 H (0.52-1.04) mg/dL Glucose 158 H (74-99) mg/dL POC Glucose (mg/dL) 173 H (75-99) mg/dL Calcium 6.8 L (8.4-10.2) mg/dL AST 123 H (14-36) U/L Alkaline Phosphatase 203 H (38-126) U/L Troponin I (0.000-0.034) ng/mL Total Protein 4.9 L (6.3-8.2) g/dL Albumin 2.1 L (3.5-5.0) g/dL Procalcitonin (0.02-0.09) ng/mL 02/21/21 02/21/21 02/21/21 Range/Units 06:03 06:04 07:00 WBC (3.8-10.6) k/uL RBC (3.80-5.40) m/uL Hgb (11.4-16.0) gm/dL Hct (34.0-46.0) % MCHC (31.0-37.0) g/dL RDW (11.5-15.5) % Neutrophils # (1.3-7.7) k/uL Lymphocytes # (1.0-4.8) k/uL ABG pH 7.25 L (7.35-7.45) ABG pCO2 47 H (35-45) mmHg ABG pO2 123 H (83-108) mmHg ABG O2 Saturation 98.9 H (94-97) % Chloride (98-107) mmol/L Carbon Dioxide (22-30) mmol/L BUN (7-17) mg/dL Creatinine (0.52-1.04) mg/dL Glucose (74-99) mg/dL POC Glucose (mg/dL) 172 H 168 H (75-99) mg/dL Calcium (8.4-10.2) mg/dL AST (14-36) U/L Alkaline Phosphatase (38-126) U/L Troponin I (0.000-0.034) ng/mL Total Protein (6.3-8.2) g/dL Albumin (3.5-5.0) g/dL Procalcitonin (0.02-0.09) ng/mL 02/21/21 Range/Units 08:16 WBC (3.8-10.6) k/uL RBC (3.80-5.40) m/uL Hgb (11.4-16.0) gm/dL Hct (34.0-46.0) % MCHC (31.0-37.0) g/dL RDW (11.5-15.5) % Neutrophils # (1.3-7.7) k/uL Lymphocytes # (1.0-4.8) k/uL ABG pH (7.35-7.45) ABG pCO2 (35-45) mmHg ABG pO2 (83-108) mmHg ABG O2 Saturation (94-97) % Chloride (98-107) mmol/L Carbon Dioxide (22-30) mmol/L BUN (7-17) mg/dL Creatinine (0.52-1.04) mg/dL Glucose (74-99) mg/dL POC Glucose (mg/dL) 164 H (75-99) mg/dL Calcium (8.4-10.2) mg/dL AST (14-36) U/L Alkaline Phosphatase (38-126) U/L Troponin I (0.000-0.034) ng/mL Total Protein (6.3-8.2) g/dL Albumin (3.5-5.0) g/dL Procalcitonin (0.02-0.09) ng/mL Microbiology - Last 24 Hours (Table) 02/20/21 09:01 Blood Culture Gram Stain - Preliminary Blood 02/20/21 09:01 Blood Culture - Final Blood 02/17/21 12:10 Blood Culture Gram Stain - Final Blood Blood Culture - Final Staphylococcus aureus Assessment and Plan Assessment: * Altered mental status due to multifactorial: anoxic encephalopathy due to cardiac arrest (24 minutes), septic encephalopathy and component of toxic- metabolic encephalopathy (her creatine is trending up, with slight elevation of AST). Has component of medication effect (Propofol which was discontinued 24 hours ago) and take time to resolve since BRITTANY. * Status post cardiac arrest, with the downtime of 32 minutes. Patient was extubated 02/16/2021 doing quite well, following commands appropriately, and t hen re-intubated on 02/17/2021 due to respiratory distress. * Epic shock secondary due to methicillin sensitive staph aureus bacteremia/pneumonia. Is on antibiotic and pressors. Most current vital is hypotensive. * Acute kidney injury and is trending upward getting dialysis today. * Mild hepatopathy * Acute STEMI, * New onset atrial fibrillation vertigo to normal sinus rhythm. * History of Diabetes * History of hypothyroidism * Hypertension * CAD Plan: I ordered a repeat CT of the head. Ordered ionized calcium and ammonia level and if they are abnormal we'll defer the management to the ICU in the primary team. We'll get a repeat routine EEG by tomorrow if no improvement. Q2 neuro checks. 2D echo is ordered by ICU team. Please avoid any hypotensive episode we'll defer the management to the primary and ICU team. Defer the rest of the medical management to the primary ICU team CONDITION: Is very guarded. The plan is discussed with the patient's nurse. Dominic Chávez M.D. Neuro-Hospitalist Time with Patient: Less than 30
[2021-02-21 11:13] LABS: Glucose,Whole Blood 136 mg/dL (75-99)
[2021-02-21 12:08] LABS: Glucose,Whole Blood 144 mg/dL (75-99)
[2021-02-21 12:53] LABS: Glucose,Whole Blood 155 mg/dL (75-99)
--- NOTE | 2021-02-21 13:35 | PCN ---
PROCEDURE NOTE Radha is a 65-year-old lady was admitted to [facility] with acute myocardial infarction and underwent emergent revascularization. She came in with ventricular tachycardia, cardiac arrest and had been intubated since. At the moment, patient remains intubated on vent, unresponsive off sedation. On exam, heart rate is 106 beats per minute, blood pressure is 89/50, respiratory is 30, O2 saturation is 97% on FiO2 50%. Chest exam reveals diminished air entry bilaterally. Heart exam reveals first and second heart sounds. No gallop. No murmur. Abdomen is soft. Examination of extremities reveals mild edema. The patient is currently on aspirin, Lipitor, Synthroid, Lopressor as needed, Levophed for hypotension and Brilinta. ASSESSMENT: 1. Status post cardiac arrest, cath and angioplasty. 2. Vent requiring respiratory failure. 3. Unresponsiveness, probably related to hypoxic ischemic encephalopathy. PLAN: Continue current medications. Prognosis is guarded. MMODL / IJN: [id number] /
[2021-02-21 14:06] LABS: Glucose,Whole Blood 169 mg/dL (75-99)
[2021-02-21 15:07] LABS: Glucose,Whole Blood 183 mg/dL (75-99)
--- NOTE | 2021-02-21 16:30 | CT ---
EXAMINATION TYPE: CT brain wo con DATE OF EXAM: 02/21/2021 HISTORY: Altered mental status. CT DLP: 1217.4 mGycm. Automated Exposure Control for Dose Reduction was Utilized. TECHNIQUE: CT scan of the head is performed without contrast. COMPARISON: CT brain 1 week ago. FINDINGS: There is no acute intracranial hemorrhage or midline shift identified. There is mild diff use ventricular and sulcal prominence consistent with diffuse age-related cerebral atrophy. There is mild low attenuation in the periventricular white matter consistent with chronic small vessel ischem ic change. Completely fluid filled right sphenoid sinus with near complete fluid filling of the left sphenoid sinus patchy fluid and mucosal thickening bilateral ethmoid sinuses. New dependent fluid rig ht greater than left bilateral maxillary sinuses. Patient has known endotracheal tube on the localize r. New opacification bilateral mastoid air cells IMPRESSION: No acute intracranial hemorrhage or midline shift. There is mild diffuse age-related ce rebral atrophy and chronic small vessel ischemic change redemonstrated without significant interval c hange. Worsening paranasal sinus findings could reflect product of intubation versus sinusitis. Liliana lar worsening mastoid fluid could reflect product of increasing paranasal sinus secretions related to intubation, cannot exclude mastoiditis.
[2021-02-21 17:25] LABS: Glucose,Whole Blood 182 mg/dL (75-99)
[2021-02-21 18:15] LABS: Glucose,Whole Blood 217 mg/dL (75-99)
[2021-02-21 18:53] LABS: Glucose,Whole Blood 192 mg/dL (75-99)
[2021-02-21 20:07] LABS: Glucose,Whole Blood 137 mg/dL (75-99)
[2021-02-21] MEDS: ATORVASTATIN 80 MG TAB PO SCH (20:35)
[2021-02-21 21:00] LABS: Glucose,Whole Blood 215 mg/dL (75-99)
--- NOTE | 2021-02-21 21:58 | P.PN ---
Subjective This is a pleasant 65 years old female with past medical history of Coronary Artery Disease , Diabetes Mellitus, GERD, Hypertension, hypothyroidism. She is a patient of Dr. Brambila Patient presents with unresponsiveness and and cardiac arrest. CPR was ongoing through EMS, patient was found in ventricular fibrillation per EMS, Pt was given 5 epi, 5 shocks and 450mg of Amniodarone. Pt did have ROSC for a few minutes but when arriving to ER no pulse present. In the emergency room patient got intubated and placed on mechanical ventilation. Initial vitals showed temperature 97.3, heart rate 79, breathing rate 16, blood pressure 118/71 and 92/62 and she was saturating 96% on mechanical ventilation Labs were showing leukocytosis of 20.5 K. INR 2.7 PH 7.2, pCO2 47 and pO2 59. Sodium 137, low potassium 2.8, normal creatinine 0.9. Glucose elevated to 65. Liver enzymes slightly elevated with AST 83 and ALT 36. Trending up troponin 0.02, 9.4 and 23.9. Coronavirus chest x-ray: Status post intubation. There may be underlying pulmonary edema or pneumonia. Repeat fracture noted on the left Nondetected. EKG showing ST elevation in anterior septal leads V1 to V4 Patient was taken to emergent cardiac cath and she underwent cardiac cathete rization with PCI to the totally occluded proximal LAD. After the procedure patient was placed on aspirin, Brillinta ,and beta beni, GONZALEZ inhibitor and statin Today patient is still intubated in the ICU, and on mechanical ventilation. She has PEEP of 10, FiO2 of 40%, tidal volume 375, she has sinus rhythm at 90 bpm, she has a Mcneil and OG tube. She has normal saline running at 50 mL per hour 02/15/2021 ICU intubated and sedated with pulmonary/critical care team followed closely Patient failed sedation trial yesterday and today. Neurology team on the case PEG showing no epileptiform discharge Ejection fraction is 50-55% Chest x-ray no change from yesterday Labs reviewed, WBC down to 14 K, INR down to normal at 1.5 Patient remains on aspirin and Brilinta Continue with gentle hydration, lisinopril, metoprolol and Aldactone with cardiology and nephrology followed the patient closely 02/16/2021 Patient remains in the ICU intubated and sedated. She is undergoing sedation holiday today as well with possible extubation that are on. She is developing fever of 100.4, her WBCs 15 K. EEG showing no epileptiform discharge. Chest x-ray showing increased perihilar opacity. There are sputum culture, proteincalcitonin. Patient is kept on aspirin and Brilinta and gentle hydration. 02/17/2021 Yesterday patient got extubated and she was doing relatively well until during the night when her respiratory status Worsened and by the morning she has to be intubated again for tachypnea and tachycardia and now she is again on mechanical ventilation. Also patient is a spiking a fever and 102 most likely secondary to pneumonia and patient was started on cefepime with culture has been requested from blood and sputum. 02/18/2021 Today patient still intubated and sedated, she still on mechanical ventilation. With pulmonary/critical care team monitor her closely and following her She is developing pneumonia with sepsis status progressed into septic shock, blood culture and sputum culture are growing staph aureus pending final culture results patient was started on IV vancomycin as well as cefepime. her blood pressure started dropping and she needed levothroid, her creatinine trending up and she is developing oliguria as per last hour she made only 5 ml/h when i checked with the night nurse. therefore 1 l liter of bolus is provided. her sugar is elevated more than 300 and if this not improving she might need to be started on insulin drip. her leukocytosis is at 14 k, creatinine trending up to 1.2. she still has a fever of 102 today. Remains on aspirin and Brilinta, pulmonary/critical care team and cardiology teams on the case 02/19/2021 Patient remains in critical condition needs mechanical ventilation on Levophed for her septic shock secondary to MSSA septicemia and pneumonia with positive sputum on blood culture Her antibiotics were adjusted today about pulmonary/critical care team into Levaquin while they discontinued cefepime and IV vancomycin. Patient still running high fever at 102. And she is becoming oliguric with acute kidney injury creatinine trending up to 2.7. Nephrology consult was obtained as she might need dialysis down the road if no improvement. Chest x-ray shows slight worsening on the right side or an changed. When I reviewed by myself. Antibiotics has just adjusted as above. Also she is on normal saline at 50 mm, insulin drip and pressors. Also she is on aspirin, Brilinta for her new ostomy 02/20/2021 Patient remains intubated and sedated in the ICU. She still in critical condition. She is currently in septic shock secondary to MSSA pneumonia and bacteremia. She's been covered with broad-spectrum antibiotics of Levaquin and cefepime. Continue with IV fluid normal sign 75 and pressors with levophed and vasopressin Also he is on insulin drip. Labs showed leukocytosis of 15.6. Creatinine trending up to 3.7 and patient is oliguric. Patient is started on hemodialysis today, second hemodialysis tomorrow 02/21/2021 Patients with septic shock secondary to MSSA pneumonia and septicemia status post cardiac arrest on arrival to the emergency room, resuscitated and currently intubated in the ICU. She developed oliguric renal failure undergoing hemodialysis. She was taken off sedation with no much response, therefore neurologist is involved and she is having negative CT of the brain. Plan to repeat EEG tomorrow Other than that she remains critically ill in the ICU and kept on broad-spectrum antibiotics with cefepime and Levaquin, aspirin and Brilinta Today DC'd her Levaquin Continue with insulin and drip Objective - Vital Signs Vital signs: Vital Signs Temp 98.7 F 02/21/21 08:00 Pulse 109 H 02/21/21 11:00 Resp 24 02/21/21 11:00 BP 89/52 02/21/21 11:00 Pulse Ox 99 02/21/21 11:00 Intake & Output 02/20/21 02/21/21 02/21/21 18:59 06:59 18:59 Intake Total 3839.370 1816.977 970.822 Output Total 20 10 15 Balance 3819.370 1806.977 955.822 Weight 140 kg 142 kg Intake: IV 2859 992 405 PRESSURE BAGS Sodium 54 72 30 chloride 0.9 Sodium Chloride 0.9% 1, 2130 000 ml @ 50 mls/hr IV . Q20H ADRIANA Rx#:[id number] Sodium Chloride 0.9% 1, 675 920 375 000 ml @ 75 mls/hr IV . [id number] ADRIANA Rx#:[id number] Intake, IV Titration 296.370 106.977 55.822 Amount Insulin Regular 100 unit 36.417 45.250 31.425 In Sodium Chloride 0.9% 100 ml @ Per Protocol IV .Q0M ADRIANA Rx#:[id number] Norepinephrine 32 mg In 162.319 61.727 24.397 Sodium Chloride 0.9% 218 ml @ 0.05 MCG/KG/MIN 3. 202 mls/hr IV .Q24H ADRIANA Rx#:[id number] propofoL 1,000 mg In 97.634 Empty Bag 1 bag @ Titrate IV .Q0M ADRIANA Rx#: [id number] Tube Feeding 264 358 210 Other 420 360 300 Output: Urine 20 10 15 Hemodialysis 0 Other: Voiding Method Indwelling Catheter Indwelling Catheter Indwelling Catheter ABP, PAP, CO, CI - Last Documented Arterial Blood Pressure 141/42 - Exam -GENERAL: The patient is sedated and intubated, not in any acute distress. morbidly obese HEENT: Pupils are round and equally reacting to light. EOMI. No scleral icterus. No conjunctival pallor. Normocephalic, atraumatic. No pharyngeal erythema. No thyromegaly. CARDIOVASCULAR: S1 and S2 present. No murmurs, rubs, or gallops. PULMONARY: Chest is clear to auscultation, no wheezing. ABDOMEN: Soft, nontender, nondistended, normoactive bowel sounds. No palpable organomegaly. MUSCULOSKELETAL: No joint swelling or deformity. EXTREMITIES: No cyanosis, clubbing, or pedal edema. NEUROLOGICAL: Gross neurological examination did not reveal any focal deficits. SKIN: No rashes. no petechiae. - Labs CBC & Chem 7: 02/21/21 03:00 02/21/21 03:00 Labs: Abnormal Lab Results - Last 24 Hours (Table) 02/20/21 02/20/21 02/20/21 Range/Units 11:21 12:03 12:55 WBC (3.8-10.6) k/uL RBC (3.80-5.40) m/uL Hgb (11.4-16.0) gm/dL Hct (34.0-46.0) % MCHC (31.0-37.0) g/dL RDW (11.5-15.5) % Neutrophils # (1.3-7.7) k/uL Lymphocytes # (1.0-4.8) k/uL ABG pH (7.35-7.45) ABG pCO2 (35-45) mmHg ABG pO2 (83-108) mmHg ABG O2 Saturation (94-97) % Chloride (98-107) mmol/L Carbon Dioxide (22-30) mmol/L BUN (7-17) mg/dL Creatinine (0.52-1.04) mg/dL Glucose (74-99) mg/dL POC Glucose (mg/dL) 182 H 173 H (75-99) mg/dL Calcium (8.4-10.2) mg/dL AST (14-36) U/L Alkaline Phosphatase (38-126) U/L Troponin I 1.570 H* (0.000-0.034) ng/mL Total Protein (6.3-8.2) g/dL Albumin (3.5-5.0) g/dL Procalcitonin (0.02-0.09) ng/mL 02/20/21 02/20/21 02/20/21 Range/Units 12:55 13:15 15:27 WBC (3.8-10.6) k/uL RBC (3.80-5.40) m/uL Hgb (11.4-16.0) gm/dL Hct (34.0-46.0) % MCHC (31.0-37.0) g/dL RDW (11.5-15.5) % Neutrophils # (1.3-7.7) k/uL Lymphocytes # (1.0-4.8) k/uL ABG pH (7.35-7.45) ABG pCO2 (35-45) mmHg ABG pO2 (83-108) mmHg ABG O2 Saturation (94-97) % Chloride (98-107) mmol/L Carbon Dioxide (22-30) mmol/L BUN (7-17) mg/dL Creatinine (0.52-1.04) mg/dL Glucose (74-99) mg/dL POC Glucose (mg/dL) 165 H 154 H (75-99) mg/dL Calcium (8.4-10.2) mg/dL AST (14-36) U/L Alkaline Phosphatase (38-126) U/L Troponin I (0.000-0.034) ng/mL Total Protein (6.3-8.2) g/dL Albumin (3.5-5.0) g/dL Procalcitonin 19.60 H (0.02-0.09) ng/mL 02/20/21 02/20/21 02/20/21 Range/Units 16:06 17:13 17:15 WBC (3.8-10.6) k/uL RBC (3.80-5.40) m/uL Hgb (11.4-16.0) gm/dL Hct (34.0-46.0) % MCHC (31.0-37.0) g/dL RDW (11.5-15.5) % Neutrophils # (1.3-7.7) k/uL Lymphocytes # (1.0-4.8) k/uL ABG pH (7.35-7.45) ABG pCO2 (35-45) mmHg ABG pO2 (83-108) mmHg ABG O2 Saturation (94-97) % Chloride (98-107) mmol/L Carbon Dioxide (22-30) mmol/L BUN (7-17) mg/dL Creatinine (0.52-1.04) mg/dL Glucose (74-99) mg/dL POC Glucose (mg/dL) 153 H 143 H (75-99) mg/dL Calcium (8.4-10.2) mg/dL AST (14-36) U/L Alkaline Phosphatase (38-126) U/L Troponin I 1.500 H* (0.000-0.034) ng/mL Total Protein (6.3-8.2) g/dL Albumin (3.5-5.0) g/dL Procalcitonin (0.02-0.09) ng/mL 02/20/21 02/20/21 02/20/21 Range/Units 18:53 19:34 21:13 WBC (3.8-10.6) k/uL RBC (3.80-5.40) m/uL Hgb (11.4-16.0) gm/dL Hct (34.0-46.0) % MCHC (31.0-37.0) g/dL RDW (11.5-15.5) % Neutrophils # (1.3-7.7) k/uL Lymphocytes # (1.0-4.8) k/uL ABG pH (7.35-7.45) ABG pCO2 (35-45) mmHg ABG pO2 (83-108) mmHg ABG O2 Saturation (94-97) % Chloride (98-107) mmol/L Carbon Dioxide (22-30) mmol/L BUN (7-17) mg/dL Creatinine (0.52-1.04) mg/dL Glucose (74-99) mg/dL POC Glucose (mg/dL) 146 H 157 H 158 H (75-99) mg/dL Calcium (8.4-10.2) mg/dL AST (14-36) U/L Alkaline Phosphatase (38-126) U/L Troponin I (0.000-0.034) ng/mL Total Protein (6.3-8.2) g/dL Albumin (3.5-5.0) g/dL Procalcitonin (0.02-0.09) ng/mL 02/20/21 02/20/21 02/20/21 Range/Units 22:21 23:07 23:57 WBC (3.8-10.6) k/uL RBC (3.80-5.40) m/uL Hgb (11.4-16.0) gm/dL Hct (34.0-46.0) % MCHC (31.0-37.0) g/dL RDW (11.5-15.5) % Neutrophils # (1.3-7.7) k/uL Lymphocytes # (1.0-4.8) k/uL ABG pH (7.35-7.45) ABG pCO2 (35-45) mmHg ABG pO2 (83-108) mmHg ABG O2 Saturation (94-97) % Chloride (98-107) mmol/L Carbon Dioxide (22-30) mmol/L BUN (7-17) mg/dL Creatinine (0.52-1.04) mg/dL Glucose (74-99) mg/dL POC Glucose (mg/dL) 177 H 164 H 167 H (75-99) mg/dL Calcium (8.4-10.2) mg/dL AST (14-36) U/L Alkaline Phosphatase (38-126) U/L Troponin I (0.000-0.034) ng/mL Total Protein (6.3-8.2) g/dL Albumin (3.5-5.0) g/dL Procalcitonin (0.02-0.09) ng/mL 02/21/21 02/21/21 02/21/21 Range/Units 02:19 03:00 03:00 WBC 23.0 H (3.8-10.6) k/uL RBC 3.10 L (3.80-5.40) m/uL Hgb 8.8 L (11.4-16.0) gm/dL Hct 29.5 L (34.0-46.0) % MCHC 29.6 L (31.0-37.0) g/dL RDW 17.2 H (11.5-15.5) % Neutrophils # 21.4 H (1.3-7.7) k/uL Lymphocytes # 0.7 L (1.0-4.8) k/uL ABG pH (7.35-7.45) ABG pCO2 (35-45) mmHg ABG pO2 (83-108) mmHg ABG O2 Saturation (94-97) % Chloride 113 H (98-107) mmol/L Carbon Dioxide 18 L (22-30) mmol/L BUN 59 H (7-17) mg/dL Creatinine 3.65 H (0.52-1.04) mg/dL Glucose 158 H (74-99) mg/dL POC Glucose (mg/dL) 171 H (75-99) mg/dL Calcium 6.8 L (8.4-10.2) mg/dL AST 123 H (14-36) U/L Alkaline Phosphatase 203 H (38-126) U/L Troponin I (0.000-0.034) ng/mL Total Protein 4.9 L (6.3-8.2) g/dL Albumin 2.1 L (3.5-5.0) g/dL Procalcitonin (0.02-0.09) ng/mL 02/21/21 02/21/21 02/21/21 Range/Units 03:05 06:03 06:04 WBC (3.8-10.6) k/uL RBC (3.80-5.40) m/uL Hgb (11.4-16.0) gm/dL Hct (34.0-46.0) % MCHC (31.0-37.0) g/dL RDW (11.5-15.5) % Neutrophils # (1.3-7.7) k/uL Lymphocytes # (1.0-4.8) k/uL ABG pH 7.25 L (7.35-7.45) ABG pCO2 47 H (35-45) mmHg ABG pO2 123 H (83-108) mmHg ABG O2 Saturation 98.9 H (94-97) % Chloride (98-107) mmol/L Carbon Dioxide (22-30) mmol/L BUN (7-17) mg/dL Creatinine (0.52-1.04) mg/dL Glucose (74-99) mg/dL POC Glucose (mg/dL) 173 H 172 H (75-99) mg/dL Calcium (8.4-10.2) mg/dL AST (14-36) U/L Alkaline Phosphatase (38-126) U/L Troponin I (0.000-0.034) ng/mL Total Protein (6.3-8.2) g/dL Albumin (3.5-5.0) g/dL Procalcitonin (0.02-0.09) ng/mL 02/21/21 02/21/21 02/21/21 Range/Units 07:00 08:16 09:28 WBC (3.8-10.6) k/uL RBC (3.80-5.40) m/uL Hgb (11.4-16.0) gm/dL Hct (34.0-46.0) % MCHC (31.0-37.0) g/dL RDW (11.5-15.5) % Neutrophils # (1.3-7.7) k/uL Lymphocytes # (1.0-4.8) k/uL ABG pH (7.35-7.45) ABG pCO2 (35-45) mmHg ABG pO2 (83-108) mmHg ABG O2 Saturation (94-97) % Chloride (98-107) mmol/L Carbon Dioxide (22-30) mmol/L BUN (7-17) mg/dL Creatinine (0.52-1.04) mg/dL Glucose (74-99) mg/dL POC Glucose (mg/dL) 168 H 164 H 150 H (75-99) mg/dL Calcium (8.4-10.2) mg/dL AST (14-36) U/L Alkaline Phosphatase (38-126) U/L Troponin I (0.000-0.034) ng/mL Total Protein (6.3-8.2) g/dL Albumin (3.5-5.0) g/dL Procalcitonin (0.02-0.09) ng/mL 02/21/21 Range/Units 10:41 WBC (3.8-10.6) k/uL RBC (3.80-5.40) m/uL Hgb (11.4-16.0) gm/dL Hct (34.0-46.0) % MCHC (31.0-37.0) g/dL RDW (11.5-15.5) % Neutrophils # (1.3-7.7) k/uL Lymphocytes # (1.0-4.8) k/uL ABG pH (7.35-7.45) ABG pCO2 (35-45) mmHg ABG pO2 (83-108) mmHg ABG O2 Saturation (94-97) % Chloride (98-107) mmol/L Carbon Dioxide (22-30) mmol/L BUN (7-17) mg/dL Creatinine (0.52-1.04) mg/dL Glucose (74-99) mg/dL POC Glucose (mg/dL) 151 H (75-99) mg/dL Calcium (8.4-10.2) mg/dL AST (14-36) U/L Alkaline Phosphatase (38-126) U/L Troponin I (0.000-0.034) ng/mL Total Protein (6.3-8.2) g/dL Albumin (3.5-5.0) g/dL Procalcitonin (0.02-0.09) ng/mL Microbiology - Last 24 Hours (Table) 02/20/21 09:01 Blood Culture Gram Stain - Preliminary Blood 02/20/21 09:01 Blood Culture - Final Blood 02/17/21 12:10 Blood Culture Gram Stain - Final Blood Blood Culture - Final Staphylococcus aureus Assessment and Plan Assessment: Acute anteroseptal STEMI Cardiac arrest, status post ventricular fibrillation status post CPR and return of circulation Acute hypoxic respiratory failure needing intubation and mechanical ventilation Sepsis secondary to pneumonia with fever and leukocytosis, developing into septic shock secondary to MSSA in the sputum and blood Metabolic acidosis acute kidney injury with oliguria requiring hemodialysis unresponsiveness off sedation concerning for ischemic brain injury Possible pulmonary edema Leukocytosis, secondary to above Left fracture secondary to CPR Coagulopathy with INR 2.7 upon admission, resolved Hypertension Hypothyroidism Diabetes mellitus History of GERD History of coronary artery disease Morbidly obese. BMI 45.8 Plan: This is a 65 years old female who presents with STEMI and cardiac arrest status post CPR and intubation, underwent cardiac cath and PCI to LAD Continue with aspirin, brillinta Continue with Intubation and mechanical ventilation with pulmonary/critical care team consult with possible extubation. Pulmonary team Antibiotics were adjusted to cefepime. Nephrology consult. 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 Continue same treatment. Continue with symptomatic treatment. Resume home medication. Monitor lytes and vitals. DVT and GI prophylaxis. Further recommendations as per clinical course of the patient DVT prophylaxis: Aspirin and brillinta GI Prophylaxis: Pepcid Prognosis is guarded
[2021-02-21 22:19] LABS: Glucose,Whole Blood 225 mg/dL (75-99)
[2021-02-21 23:08] LABS: Glucose,Whole Blood 202 mg/dL (75-99)
[2021-02-22 00:07] LABS: Glucose,Whole Blood 215 mg/dL (75-99)
[2021-02-22] MEDS: IPRATROPIUM-ALBUTEROL 3 ML NEB INHALATION SCH ×7 (00:22→23:51)
[2021-02-22 01:14] LABS: Glucose,Whole Blood 98 mg/dL (75-99)
[2021-02-22 01:14] LABS: Glucose,Whole Blood 206 mg/dL (75-99)
[2021-02-22] MEDS: INSULIN REGULAR 100 UNIT in SODIUM CHLORIDE 0.9% 100 ML IV SCH ×2 (01:16→17:19)
[2021-02-22 02:03] LABS: Glucose,Whole Blood 205 mg/dL (75-99)
[2021-02-22 04:05] LABS: Glucose,Whole Blood 195 mg/dL (75-99)
[2021-02-22] MEDS: SODIUM CHLORIDE 0.9% 1,000 ML IV SCH ×2 (04:52→19:11)
[2021-02-22 05:08] LABS: Glucose,Whole Blood 190 mg/dL (75-99)
[2021-02-22 05:24] LABS: Anisocytosis Slight; Basophils % (A) 0 %; Eosinophils # (A) 0.2 k/uL (0-0.7); Eosinophils % (A) 1 %; HCT 25.5 % (34.0-46.0); Hypochromasia Moderate; Lymphocytes # (A) 0.9 k/uL (1.0-4.8); Lymphocytes % (A) 6 %; MCH 28.9 pg (25.0-35.0); MCHC 31.3 g/dL (31.0-37.0); MCV 92.3 fL (80.0-100.0); Mean Platelet Volume 9.6; Monocytes # (A) 0.5 k/uL (0-1.0); Monocytes % (A) 3 %; Neutrophils # (A) 13.6 k/uL (1.3-7.7); Neutrophils % (A) 88 %; Platelet Count 147 k/uL (150-450); RBC 2.76 m/uL (3.80-5.40); RDW 16.9 % (11.5-15.5); WBC 15.4 k/uL (3.8-10.6)
[2021-02-22 05:40] LABS: Calcium 6.7 mg/dL (8.4-10.2); Potassium 3.4 mmol/L (3.5-5.1); Total Bilirubin 0.7 mg/dL (0.2-1.3); Total Protein 4.7 g/dL (6.3-8.2)
[2021-02-22 06:11] LABS: Glucose,Whole Blood 178 mg/dL (75-99)
[2021-02-22] MEDS: LEVOTHYROXINE 100 MCG TAB PO SCH (06:32)
[2021-02-22 06:34] LABS: ABG Base Excess -2.5 mmol/L; ABG HCO3 24 mmol/L (21-25); ABG Oxygen Saturation 96.5 % (94-97); ABG PCO2 50 mmHg (35-45); ABG PH 7.29 (7.35-7.45); ABG PO2 85 mmHg (83-108); ABG TCO2 26 mmol/L (19-24); Allen Test Performed? Yes
[2021-02-22 07:01] LABS: Glucose,Whole Blood 185 mg/dL (75-99)
[2021-02-22] MEDS ORDERED: FUROSEMIDE 10 MG/ML 2 ML VIAL IV ONE (08:08)
[2021-02-22] MEDS ORDERED: POTASSIUM BICARB-CITRIC ACID 25 MEQ TABLET.EFF PO ONE (08:08)
[2021-02-22 08:09] LABS: Glucose,Whole Blood 181 mg/dL (75-99)
[2021-02-22] MEDS: CHLORHEXIDINE GLUCONATE 15 ML CUP MUCOUS MEM SCH ×2 (08:30→21:40)
[2021-02-22] MEDS: SODIUM BICARBONATE TAB 650 MG TAB PO SCH ×2 (08:31→21:40)
[2021-02-22] MEDS: ASPIRIN 81 MG PO SCH (08:31)
[2021-02-22] MEDS: TICAGRELOR 90 MG TAB PO SCH ×2 (08:31→21:41)
[2021-02-22] MEDS: PANTOPRAZOLE 40 MG/10 ML VIAL IVP SCH (08:31)
--- NOTE | 2021-02-22 08:46 | P.PN ---
Subjective Patient is seen in follow-up for acute kidney injury. Hemodialysis dependent. Started on dialysis 02/20/2021. Oliguric. On Levophed. Receiving tube feeds. Vital signs are stable. On vasopressor support. HEENT: Intubated. LUNGS: Breath sounds decreased. HEART: Tachycardic. ABDOMEN: Soft, obese. EXTREMITITES: 1+ edema. Objective - Vital Signs Vital signs: Vital Signs Temp 99.2 F 02/22/21 04:00 Pulse 105 H 02/22/21 08:30 Resp 28 H 02/22/21 06:00 BP 116/55 02/22/21 06:00 Pulse Ox 100 02/22/21 06:00 Intake & Output 02/21/21 02/22/21 02/22/21 18:59 06:59 18:59 Intake Total 2153.760 2406.715 138.567 Output Total 1020 15 0 Balance 3090.087 9178.715 138.567 Weight 142 kg Intake: IV 972 972 81 PRESSURE BAGS Sodium 72 72 6 chloride 0.9 Sodium Chloride 0.9% 1, 900 900 75 000 ml @ 75 mls/hr IV . [id number] ADRIANA Rx#:[id number] Intake, IV Titration 101.760 174.715 2.567 Amount Insulin Regular 100 unit 53.458 73.350 2.567 In Sodium Chloride 0.9% 100 ml @ Per Protocol IV .Q0M ADRIANA Rx#:[id number] Norepinephrine 32 mg In 48.302 101.365 Sodium Chloride 0.9% 218 ml @ 0.05 MCG/KG/MIN 3. 202 mls/hr IV .Q24H ADRIANA Rx#:[id number] Tube Feeding 540 660 55 Other 540 600 Output: Urine 20 15 0 Hemodialysis 1000 Other: Voiding Method Indwelling Catheter Indwelling Catheter ABP, PAP, CO, CI - Last Documented Arterial Blood Pressure 115/48 - Labs CBC & Chem 7: 02/22/21 03:55 02/22/21 03:55 Labs: Abnormal Lab Results - Last 24 Hours (Table) 02/21/21 02/21/21 02/21/21 Range/Units 03:00 09:28 10:41 WBC (3.8-10.6) k/uL RBC (3.80-5.40) m/uL Hgb (11.4-16.0) gm/dL Hct (34.0-46.0) % RDW (11.5-15.5) % Plt Count (150-450) k/uL Neutrophils # (1.3-7.7) k/uL Lymphocytes # (1.0-4.8) k/uL ABG pH (7.35-7.45) ABG pCO2 (35-45) mmHg ABG Total CO2 (19-24) mmol/L Potassium (3.5-5.1) mmol/L Chloride (98-107) mmol/L BUN (7-17) mg/dL Creatinine (0.52-1.04) mg/dL Glucose (74-99) mg/dL POC Glucose (mg/dL) 150 H 151 H (75-99) mg/dL Calcium (8.4-10.2) mg/dL AST (14-36) U/L Alkaline Phosphatase (38-126) U/L Total Protein (6.3-8.2) g/dL Albumin (3.5-5.0) g/dL Procalcitonin 16.90 H (0.02-0.09) ng/mL 02/21/21 02/21/21 02/21/21 Range/Units 11:11 12:07 12:50 WBC (3.8-10.6) k/uL RBC (3.80-5.40) m/uL Hgb (11.4-16.0) gm/dL Hct (34.0-46.0) % RDW (11.5-15.5) % Plt Count (150-450) k/uL Neutrophils # (1.3-7.7) k/uL Lymphocytes # (1.0-4.8) k/uL ABG pH (7.35-7.45) ABG pCO2 (35-45) mmHg ABG Total CO2 (19-24) mmol/L Potassium (3.5-5.1) mmol/L Chloride (98-107) mmol/L BUN (7-17) mg/dL Creatinine (0.52-1.04) mg/dL Glucose (74-99) mg/dL POC Glucose (mg/dL) 136 H 144 H 155 H (75-99) mg/dL Calcium (8.4-10.2) mg/dL AST (14-36) U/L Alkaline Phosphatase (38-126) U/L Total Protein (6.3-8.2) g/dL Albumin (3.5-5.0) g/dL Procalcitonin (0.02-0.09) ng/mL 02/21/21 02/21/21 02/21/21 Range/Units 14:04 15:05 17:24 WBC (3.8-10.6) k/uL RBC (3.80-5.40) m/uL Hgb (11.4-16.0) gm/dL Hct (34.0-46.0) % RDW (11.5-15.5) % Plt Count (150-450) k/uL Neutrophils # (1.3-7.7) k/uL Lymphocytes # (1.0-4.8) k/uL ABG pH (7.35-7.45) ABG pCO2 (35-45) mmHg ABG Total CO2 (19-24) mmol/L Potassium (3.5-5.1) mmol/L Chloride (98-107) mmol/L BUN (7-17) mg/dL Creatinine (0.52-1.04) mg/dL Glucose (74-99) mg/dL POC Glucose (mg/dL) 169 H 183 H 182 H (75-99) mg/dL Calcium (8.4-10.2) mg/dL AST (14-36) U/L Alkaline Phosphatase (38-126) U/L Total Protein (6.3-8.2) g/dL Albumin (3.5-5.0) g/dL Procalcitonin (0.02-0.09) ng/mL 02/21/21 02/21/21 02/21/21 Range/Units 18:14 18:50 20:05 WBC (3.8-10.6) k/uL RBC (3.80-5.40) m/uL Hgb (11.4-16.0) gm/dL Hct (34.0-46.0) % RDW (11.5-15.5) % Plt Count (150-450) k/uL Neutrophils # (1.3-7.7) k/uL Lymphocytes # (1.0-4.8) k/uL ABG pH (7.35-7.45) ABG pCO2 (35-45) mmHg ABG Total CO2 (19-24) mmol/L Potassium (3.5-5.1) mmol/L Chloride (98-107) mmol/L BUN (7-17) mg/dL Creatinine (0.52-1.04) mg/dL Glucose (74-99) mg/dL POC Glucose (mg/dL) 217 H 192 H 137 H (75-99) mg/dL Calcium (8.4-10.2) mg/dL AST (14-36) U/L Alkaline Phosphatase (38-126) U/L Total Protein (6.3-8.2) g/dL Albumin (3.5-5.0) g/dL Procalcitonin (0.02-0.09) ng/mL 02/21/21 02/21/21 02/21/21 Range/Units 20:59 22:07 23:07 WBC (3.8-10.6) k/uL RBC (3.80-5.40) m/uL Hgb (11.4-16.0) gm/dL Hct (34.0-46.0) % RDW (11.5-15.5) % Plt Count (150-450) k/uL Neutrophils # (1.3-7.7) k/uL Lymphocytes # (1.0-4.8) k/uL ABG pH (7.35-7.45) ABG pCO2 (35-45) mmHg ABG Total CO2 (19-24) mmol/L Potassium (3.5-5.1) mmol/L Chloride (98-107) mmol/L BUN (7-17) mg/dL Creatinine (0.52-1.04) mg/dL Glucose (74-99) mg/dL POC Glucose (mg/dL) 215 H 225 H 202 H (75-99) mg/dL Calcium (8.4-10.2) mg/dL AST (14-36) U/L Alkaline Phosphatase (38-126) U/L Total Protein (6.3-8.2) g/dL Albumin (3.5-5.0) g/dL Procalcitonin (0.02-0.09) ng/mL 12/02/22/21 02/22/21 Range/Units 00:05 01:12 02:01 WBC (3.8-10.6) k/uL RBC (3.80-5.40) m/uL Hgb (11.4-16.0) gm/dL Hct (34.0-46.0) % RDW (11.5-15.5) % Plt Count (150-450) k/uL Neutrophils # (1.3-7.7) k/uL Lymphocytes # (1.0-4.8) k/uL ABG pH (7.35-7.45) ABG pCO2 (35-45) mmHg ABG Total CO2 (19-24) mmol/L Potassium (3.5-5.1) mmol/L Chloride (98-107) mmol/L BUN (7-17) mg/dL Creatinine (0.52-1.04) mg/dL Glucose (74-99) mg/dL POC Glucose (mg/dL) 215 H 206 H 205 H (75-99) mg/dL Calcium (8.4-10.2) mg/dL AST (14-36) U/L Alkaline Phosphatase (38-126) U/L Total Protein (6.3-8.2) g/dL Albumin (3.5-5.0) g/dL Procalcitonin (0.02-0.09) ng/mL 02/22/21 02/22/21 02/22/21 Range/Units 03:55 03:55 04:03 WBC 15.4 H (3.8-10.6) k/uL RBC 2.76 L (3.80-5.40) m/uL Hgb 8.0 L (11.4-16.0) gm/dL Hct 25.5 L (34.0-46.0) % RDW 16.9 H (11.5-15.5) % Plt Count 147 L (150-450) k/uL Neutrophils # 13.6 H (1.3-7.7) k/uL Lymphocytes # 0.9 L (1.0-4.8) k/uL ABG pH (7.35-7.45) ABG pCO2 (35-45) mmHg ABG Total CO2 (19-24) mmol/L Potassium 3.4 L (3.5-5.1) mmol/L Chloride 112 H (98-107) mmol/L BUN 56 H (7-17) mg/dL Creatinine 3.74 H (0.52-1.04) mg/dL Glucose 184 H (74-99) mg/dL POC Glucose (mg/dL) 195 H (75-99) mg/dL Calcium 6.7 L (8.4-10.2) mg/dL AST 132 H (14-36) U/L Alkaline Phosphatase 232 H (38-126) U/L Total Protein 4.7 L (6.3-8.2) g/dL Albumin 2.0 L (3.5-5.0) g/dL Procalcitonin (0.02-0.09) ng/mL 02/22/21 02/22/21 02/22/21 Range/Units 05:06 06:10 06:15 WBC (3.8-10.6) k/uL RBC (3.80-5.40) m/uL Hgb (11.4-16.0) gm/dL Hct (34.0-46.0) % RDW (11.5-15.5) % Plt Count (150-450) k/uL Neutrophils # (1.3-7.7) k/uL Lymphocytes # (1.0-4.8) k/uL ABG pH 7.29 L (7.35-7.45) ABG pCO2 50 H (35-45) mmHg ABG Total CO2 26 H (19-24) mmol/L Potassium (3.5-5.1) mmol/L Chloride (98-107) mmol/L BUN (7-17) mg/dL Creatinine (0.52-1.04) mg/dL Glucose (74-99) mg/dL POC Glucose (mg/dL) 190 H 178 H (75-99) mg/dL Calcium (8.4-10.2) mg/dL AST (14-36) U/L Alkaline Phosphatase (38-126) U/L Total Protein (6.3-8.2) g/dL Albumin (3.5-5.0) g/dL Procalcitonin (0.02-0.09) ng/mL 02/22/21 02/22/21 Range/Units 06:59 08:03 WBC (3.8-10.6) k/uL RBC (3.80-5.40) m/uL Hgb (11.4-16.0) gm/dL Hct (34.0-46.0) % RDW (11.5-15.5) % Plt Count (150-450) k/uL Neutrophils # (1.3-7.7) k/uL Lymphocytes # (1.0-4.8) k/uL ABG pH (7.35-7.45) ABG pCO2 (35-45) mmHg ABG Total CO2 (19-24) mmol/L Potassium (3.5-5.1) mmol/L Chloride (98-107) mmol/L BUN (7-17) mg/dL Creatinine (0.52-1.04) mg/dL Glucose (74-99) mg/dL POC Glucose (mg/dL) 185 H 181 H (75-99) mg/dL Calcium (8.4-10.2) mg/dL AST (14-36) U/L Alkaline Phosphatase (38-126) U/L Total Protein (6.3-8.2) g/dL Albumin (3.5-5.0) g/dL Procalcitonin (0.02-0.09) ng/mL Microbiology - Last 24 Hours (Table) 02/21/21 09:35 Blood Culture Gram Stain - Preliminary Blood 02/20/21 09:35 Blood Culture - Final Blood 02/20/21 09:01 Blood Culture Gram Stain - Preliminary Blood 02/20/21 09:01 Blood Culture - Final Blood Assessment and Plan Plan: Assessment: 1. Acute kidney injury secondary to ATN secondary to cardiac arrest and septic shock. Baseline creatinine is near 1. Oliguric. Diuretic unresponsive. Started on hemodialysis 02/20/2021. No hydronephrosis noted on kidney ultrasound. 2. Septic shock secondary to staph pneumonia and bacteremia on antibiotics. 3. Status post cardiac arrest on 02/13/2021. 4. Acute [place] status post stenting of the LAD on 02/13/2021. 5. Diabetes. 6. Metabolic acidosis secondary to acute kidney injury and IVFs. On oral bicarb. Better. 7. Hypokalemia, being replaced. Plan: Hold hemodialysis today. Plan for treatment tomorrow. Maintain tube feeding. Wean FiO2 and vasopressors. Phosphorus normal at 4.1. Hep-Lock IV fluids.
[2021-02-22] MEDS: CEFEPIME 1 GM in SODIUM CHLORIDE 0.9% 50 ML IVPB SCH ×2 (08:53→21:41)
[2021-02-22 09:06] LABS: Glucose,Whole Blood 180 mg/dL (75-99)
--- NOTE | 2021-02-22 09:14 | P.PN ---
Subjective Progress Note Date: 02/22/21 Principal diagnosis: Acute cardiac arrest 65-year-old female with a history of diabetes, hypothyroidism, hyperlipidemia, hypertension, gastroesophageal reflux disease, and obesity, who was seen in the emergency room, on February 13. She apparently had a witnessed cardiac arrest in front of family members. EMS was called, and ACLS protocol was begun. The patient was noted to be in ventricular fibrillation. She apparently was intubated, and placed on the monitor and found to have ventricular fibrillation, and was defibrillated, a total of 5 times he was given 450 mg of amiodarone. She did apparently have spontaneous circulation briefly upon arrival, but apparently did develop PEA rhythm in the emergency room, and ACLS was continued. The patient was taken to the [facility], and found to have a complete occlusion of the LAD. 2 stents replaced, via the right radial approach. The patient came back to the intensive care unit on the ventilator. She is on the volume assist control mode, rate 18, tidal volumes 375, FiO2 100%, and PEEP of 10. Initial gases showed a pO2 of 59, pCO2 47, and a pH is 7.26. These blood gases were done on a rate of 14, and a PEEP of 5. Hence the increase in rate and PEEP. The patient is currently on Toprol fall at 25 mcg/kg/m, and saline at 50 mL an hour. I reviewed her medications at the bedside with the nurse, Rachael. The jac n is to keep her on the ventilator overnight, and work on getting her extubated in the morning. Because of a cardiac arrest, no history could be obtained. The medical history that I noted above, was gleaned from the medications that she takes. They included Requip, Glucophage, micardis HCT, metoprolol, Synthroid, insulin, famotidine, Lipitor, and aspirin. The patient is seen today 02/14/2021 in follow-up in the intensive care unit. She remains intubated, sedated and on the mechanical ventilator. Current settings are assist-control mode at a rate of 18, tidal volume 375, FiO2 40% and a PEEP of 10. Morning blood gases revealed a PaO2 of 159, pCO2 44, pH 7.4 to on 50% FiO2. She is sedated with propofol at 45 mcg/kg/m. 0.9 normal saying at 50 MLS per hour. Chest x-ray reveals good placement of the endotracheal tube and nasogastric tubes. There is no pneumothorax. Some basilar density obscures left hemidiaphragm. Improved aeration in the right lung. Some bibasilar atelectasis. Left-sided rib fractures. Sputum culture pending. White count 20.1. Hemoglobin 12.2. Platelets 205. Sodium 135. Potassium 4.7. Creatinine 0.72. Glucose 238. Urine culture pending. She's been initiated and DuoNeb inhalations. Remains on Brilinta and aspirin. On 02/15/2021 patient seen in follow-up in intensive care unit, she remains intubated, and sedated on mechanical ventilator with assist control mode of ventilation with a rate of 18, tidal, 375, PEEP of 10, and FiO2 of 40%. This morning's blood gas shows pO2 of 86, pCO2 48, and pH of 7.43. 0.9 normal saline entered a 50 ML per hour, Diprivan is at 20 mics per kilo per minute. No tube feedings. She is in sinus mechanism with a rate of 122. Her sedation is being weaned, she failed a sedation holiday yesterday. Right now she has her eyes open, she appears to be slightly tracking with her gaze, however she is not following commands, and she is becoming restless and agitated. She is not on any vasopressor support, no arrhythmias overnight, no acute events. Chest x-ray today shows basilar density at the left hemidiaphragm likely related to atelectasis. Left-sided rib fractures, stable exam. Brain CT from yesterday shows degenerative and nonspecific white matter changes, and MRI was recommended to exclude acute ischemia. No acute hemorrhage or mass effect. Neurology is following, EEG has been completed showing background slowing of mild to moderate degree suggestive of generalized cerebral dysfunction as can be seen with toxic metabolic encephalopathy, no epileptiform activity. Today's labs have been reviewed with blood cell count is improving and is down to 14.3, hemoglobin is 11.6, electrolytes and renal profile are within normal limits, urinalysis showed turbid urine, with 1+ protein, 2+ glucose, small leuks, but no definite sign of infection, urine drug screen showed benzodiazepines and marijuana. COVID-19 PCR was negative. Sputum culture has been sent showing no PMNs, moderate gram-posi tive cocci On 02/16/2021 patient seen in follow-up in the intensive care unit, she remains intubated, sedated on assist control mode of ventilation with a rate of 18, tidal vital 375, FiO2 40% and PEEP of 10. Her peak air pressures 27, and her static pressure is 17. Today's chest x-ray shows perihilar opacities with possible slight increase, and possible mild pulmonary vascular congestion. The re is a small left pleural effusion with atelectasis in the retrocardiac region. Her EEG showed background slowing of mild to moderate degree, and generalized cerebral dysfunction as can be seen with toxic metabolic encephalopathy, no epileptiform activity. Brain CT showed degenerative nonspecific white matter changes. Blood gas today shows pO2 of 83, pCO2 45, and pH of 7.48. Her white blood cell count is improving, is down to 15.8, hemoglobin is 11.3, sodium is 135, the rest of electrolytes and renal profile are unremarkable. Patient is currently on 0.0 cm with a 50 ML per hour and debridement is a 40 mics per kilo per minute. She is in sinus mechanism, with a rate of 12. Yesterday patient tolerated sedation holiday, and she tolerated a brief CPAP trial, however weaning parameters were suboptimal, and patient was not ready to extubate and she was placed on assist-control mode of ventilation and received a day. She's had no acute events overnight. She is having some colored secretions suctioned out of her ET tube. She is tolerating her tube feedings, she is on vital 1.2 at a rate of 28. On 02/17/2021 patient seen in follow-up in intensive care unit. She was weaned and extubated from mechanical ventilator last night, however through the night of her breathing had worsened, and exhalation had to be placed on BiPAP support. Early this morning she had failed the BiPAP support, she was very dyspneic, tachycardic, and she had to be reintubated at 6:00 this morning. She is currently on assist control mode of ventilation with a rate of 18, tidal vital 400, FiO2 of 70% and PEEP of 12. She is currently unemployed and was seen at a rate of 29 per hour, Diprivan is a 60 mics per minute. And patient will also need to be paralyzed. Chest x-ray from this morning showed low lung volumes with bibasilar opacities. Patient was still quite tachycardic but in sinus mechanism, and hypertensive, she was given 5 mg of Lopressor IV push with good response, she is less tachycardic and blood pressure has improved. Patient is already on maintenance dose Lopressor 50 mg twice daily. Cardiology is following. The rest of her blood work was reviewed showing white blood cell count of 11.9, hemoglobin of 10, electrolytes are within normal limits, BUN of 19 and creatinine 0.74. Pro-calcitonin level was elevated at 1.37, and patient will be started on cefepime for empiric antibiotic coverage, sputum culture will be sent. Blood culture has also been ordered. Patient is on Protonix for GI prophylaxis, we will add Lovenox for DVT prophylaxis. On 02/22/2022 patient seen in follow-up in intensive care unit. She remains unresponsive, she has been off sedation since 02/20/2021. She has not received any Diprivan or narcotics. She remains intubated on assist control mode of ventilation with a rate of 28, tidal volume is 400, FiO2 of 50% and PEEP of 15. This morning's blood gas shows pO2 of 85, pCO2 50, and pH of 7.29 and this was done on the above-mentioned vent settings. She is on small amount of norepinephrine, 11 mics per minute, vasopressin has been discontinued, she is on 0.9 normal saline at a rate of 20 ML per hour, no other drips. She is in sinus mechanism slightly tachycardic with a rate of 105. She has not had recurrence of A. fib. She is on aspirin and Brilinta for a recent history of stenting of the LAD 2. No other anti-coagulants at this time. Her chest x-ray today shows diffuse bilateral infiltrates that are stable in appearance, and consolidative process in the left lower lobe with a small left pleural effusion, patient was started on hemodialysis and she had hemodialysis treatments for the last 2 days. On 02/21/2021 she had 1 L of fluid removed with hemodialysis, and just ultrafiltration on 02/20/2021 with no fluid removed. Urine output is minimal in the order of 5-10 mL per hour, patient is an significantly positive net fluid balance since admission, she has significant third spacing and edema involving her upper and lower extremities and trunk. She is at least 10 kg positive since admission. Low-grade fevers overnight. T-max is 99.6F. Patient remains on cefepime for antibiotic coverage, her blood cultures from 02/17/2021 showed MSSA, follow-up blood cultures sent on 02/20/2021 and 02/21/2021 are showing g jaiden-positive cocci in groups. Final culture is pending. Today's labs show improvement in white count which is down to 15.4, hemoglobin is 8.0, platelet count is 147, sodium is 144, potassium is 3.4, chloride is 112, B1 is 56, and creatinine is 3.74, renal profile is relatively stable, her AST is 132, slightly increased, ALT is within normal limits at 25, alkaline phosphatase is 232, her last pro-calcitonin from yesterday 02/21/2021 was still significantly elevated at 16.9. Patient did receive a dose of vancomycin a few days back, her last Vanco troph was on 02/19/2021 and was at 19.0. Neurologically patient doesn't attempt to open eyes, does not follow any purposeful command, she does have a positive corneal reflex, positive cough, negative gag, negative Babinski. CT of the brain from yesterday on 02/21/2021 showed no acute intracranial hemorrhage or midline shift, mild diffuse age-related cerebral atrophy and chronic small vessel ischemic change without significant interval change. There was worsening paranasal sinus findings possibly related to intubation versus sinusitis. N eurology is following. Objective - Vital Signs Vital signs: Vital Signs Temp 99.2 F 02/22/21 04:00 Pulse 105 H 02/22/21 08:30 Resp 28 H 02/22/21 06:00 BP 116/55 02/22/21 06:00 Pulse Ox 100 02/22/21 06:00 Intake & Output 02/21/21 02/22/21 02/22/21 18:59 06:59 18:59 Intake Total 2153.760 2406.715 138.567 Output Total 1020 15 0 Balance 5432.582 6832.715 138.567 Weight 142 kg Intake: IV 972 972 81 PRESSURE BAGS Sodium 72 72 6 chloride 0.9 Sodium Chloride 0.9% 1, 900 900 75 000 ml @ 75 mls/hr IV . [id number] [facility] Rx#:[id number] Intake, IV Titration 101.760 174.715 2.567 Amount Insulin Regular 100 unit 53.458 73.350 2.567 In Sodium Chloride 0.9% 100 ml @ Per Protocol IV .Q0M [facility] Rx#:[id number] Norepinephrine 32 mg In 48.302 101.365 Sodium Chloride 0.9% 218 ml @ 0.05 MCG/KG/MIN 3. 202 mls/hr IV .Q24H [facility] Rx#:[id number] Tube Feeding 540 660 55 Other 540 600 Output: Urine 20 15 0 Hemodialysis 1000 Other: Voiding Method Indwelling Catheter Indwelling Catheter ABP, PAP, CO, CI - Last Documented Arterial Blood Pressure 115/48 - Exam GENERAL EXAM: 65-year-old white female patient on assist-control mode of ventilation, unresponsive, has been off sedation for the past 48 hours currently on assist-control mode of ventilation, with a rate of 28, tidal volume 400, FiO2 of 50% and PEEP of 15. HEAD: Normocephalic/atraumatic. EYES: Normal reaction of pupils, equal size. Conjunctiva pink, sclera white. NOSE: Clear with pink turbinates. THROAT: No erythema or exudates. NECK: No masses, no JVD, no thyroid enlargement, no adenopathy. CHEST: No chest wall deformity. Symmetrical expansion. LUNGS: Equal air entry with no crackles, wheeze, rhonchi or dullness. CVS: Regular rate and rhythm, normal S1 and S2, no gallops, no murmurs, no rubs ABDOMEN: Soft, nontender. No hepatosplenomegaly, normal bowel sounds, no guarding or rigidity. EXTREMITIES: No clubbing, significant generalized edema no cyanosis, 2+ pulses and upper and lower extremities. MUSCULOSKELETAL: Muscle strength and tone normal. SPINE: No scoliosis or deformity SKIN: No rashes CENTRAL NERVOUS SYSTEM: Unresponsive, attempts to open eyes to vigorous tactile stimulation, positive cough, positive corneal reflex, negative gag reflex, negative Babinski, - Labs CBC & Chem 7: 02/22/21 03:55 02/22/21 03:55 Labs: Abnormal Lab Results - Last 24 Hours (Table) 02/21/21 02/21/21 02/21/21 Range/Units 03:00 09:28 10:41 WBC (3.8-10.6) k/uL RBC (3.80-5.40) m/uL Hgb (11.4-16.0) gm/dL Hct (34.0-46.0) % RDW (11.5-15.5) % Plt Count (150-450) k/uL Neutrophils # (1.3-7.7) k/uL Lymphocytes # (1.0-4.8) k/uL ABG pH (7.35-7.45) ABG pCO2 (35-45) mmHg ABG Total CO2 (19-24) mmol/L Potassium (3.5-5.1) mmol/L Chloride (98-107) mmol/L BUN (7-17) mg/dL Creatinine (0.52-1.04) mg/dL Glucose (74-99) mg/dL POC Glucose (mg/dL) 150 H 151 H (75-99) mg/dL Calcium (8.4-10.2) mg/dL AST (14-36) U/L Alkaline Phosphatase (38-126) U/L Total Protein (6.3-8.2) g/dL Albumin (3.5-5.0) g/dL Procalcitonin 16.90 H (0.02-0.09) ng/mL 02/21/21 02/21/21 02/21/21 Range/Units 11:11 12:07 12:50 WBC (3.8-10.6) k/uL RBC (3.80-5.40) m/uL Hgb (11.4-16.0) gm/dL Hct (34.0-46.0) % RDW (11.5-15.5) % Plt Count (150-450) k/uL Neutrophils # (1.3-7.7) k/uL Lymphocytes # (1.0-4.8) k/uL ABG pH (7.35-7.45) ABG pCO2 (35-45) mmHg ABG Total CO2 (19-24) mmol/L Potassium (3.5-5.1) mmol/L Chloride (98-107) mmol/L BUN (7-17) mg/dL Creatinine (0.52-1.04) mg/dL Glucose (74-99) mg/dL POC Glucose (mg/dL) 136 H 144 H 155 H (75-99) mg/dL Calcium (8.4-10.2) mg/dL AST (14-36) U/L Alkaline Phosphatase (38-126) U/L Total Protein (6.3-8.2) g/dL Albumin (3.5-5.0) g/dL Procalcitonin (0.02-0.09) ng/mL 02/21/21 02/21/21 02/21/21 Range/Units 14:04 15:05 17:24 WBC (3.8-10.6) k/uL RBC (3.80-5.40) m/uL Hgb (11.4-16.0) gm/dL Hct (34.0-46.0) % RDW (11.5-15.5) % Plt Count (150-450) k/uL Neutrophils # (1.3-7.7) k/uL Lymphocytes # (1.0-4.8) k/uL ABG pH (7.35-7.45) ABG pCO2 (35-45) mmHg ABG Total CO2 (19-24) mmol/L Potassium (3.5-5.1) mmol/L Chloride (98-107) mmol/L BUN (7-17) mg/dL Creatinine (0.52-1.04) mg/dL Glucose (74-99) mg/dL POC Glucose (mg/dL) 169 H 183 H 182 H (75-99) mg/dL Calcium (8.4-10.2) mg/dL AST (14-36) U/L Alkaline Phosphatase (38-126) U/L Total Protein (6.3-8.2) g/dL Albumin (3.5-5.0) g/dL Procalcitonin (0.02-0.09) ng/mL 02/21/21 02/21/21 02/21/21 Range/Units 18:14 18:50 20:05 WBC (3.8-10.6) k/uL RBC (3.80-5.40) m/uL Hgb (11.4-16.0) gm/dL Hct (34.0-46.0) % RDW (11.5-15.5) % Plt Count (150-450) k/uL Neutrophils # (1.3-7.7) k/uL Lymphocytes # (1.0-4.8) k/uL ABG pH (7.35-7.45) ABG pCO2 (35-45) mmHg ABG Total CO2 (19-24) mmol/L Potassium (3.5-5.1) mmol/L Chloride (98-107) mmol/L BUN (7-17) mg/dL Creatinine (0.52-1.04) mg/dL Glucose (74-99) mg/dL POC Glucose (mg/dL) 217 H 192 H 137 H (75-99) mg/dL Calcium (8.4-10.2) mg/dL AST (14-36) U/L Alkaline Phosphatase (38-126) U/L Total Protein (6.3-8.2) g/dL Albumin (3.5-5.0) g/dL Procalcitonin (0.02-0.09) ng/mL 02/21/21 02/21/21 02/21/21 Range/Units 20:59 22:07 23:07 WBC (3.8-10.6) k/uL RBC (3.80-5.40) m/uL Hgb (11.4-16.0) gm/dL Hct (34.0-46.0) % RDW (11.5-15.5) % Plt Count (150-450) k/uL Neutrophils # (1.3-7.7) k/uL Lymphocytes # (1.0-4.8) k/uL ABG pH (7.35-7.45) ABG pCO2 (35-45) mmHg ABG Total CO2 (19-24) mmol/L Potassium (3.5-5.1) mmol/L Chloride (98-107) mmol/L BUN (7-17) mg/dL Creatinine (0.52-1.04) mg/dL Glucose (74-99) mg/dL POC Glucose (mg/dL) 215 H 225 H 202 H (75-99) mg/dL Calcium (8.4-10.2) mg/dL AST (14-36) U/L Alkaline Phosphatase (38-126) U/L Total Protein (6.3-8.2) g/dL Albumin (3.5-5.0) g/dL Procalcitonin (0.02-0.09) ng/mL 02/22/21 02/22/21 02/22/21 Range/Units 00:05 01:12 02:01 WBC (3.8-10.6) k/uL RBC (3.80-5.40) m/uL Hgb (11.4-16.0) gm/dL Hct (34.0-46.0) % RDW (11.5-15.5) % Plt Count (150-450) k/uL Neutrophils # (1.3-7.7) k/uL Lymphocytes # (1.0-4.8) k/uL ABG pH (7.35-7.45) ABG pCO2 (35-45) mmHg ABG Total CO2 (19-24) mmol/L Potassium (3.5-5.1) mmol/L Chloride (98-107) mmol/L BUN (7-17) mg/dL Creatinine (0.52-1.04) mg/dL Glucose (74-99) mg/dL POC Glucose (mg/dL) 215 H 206 H 205 H (75-99) mg/dL Calcium (8.4-10.2) mg/dL AST (14-36) U/L Alkaline Phosphatase (38-126) U/L Total Protein (6.3-8.2) g/dL Albumin (3.5-5.0) g/dL Procalcitonin (0.02-0.09) ng/mL 02/22/21 02/22/21 02/22/21 Range/Units 03:55 03:55 04:03 WBC 15.4 H (3.8-10.6) k/uL RBC 2.76 L (3.80-5.40) m/uL Hgb 8.0 L (11.4-16.0) gm/dL Hct 25.5 L (34.0-46.0) % RDW 16.9 H (11.5-15.5) % Plt Count 147 L (150-450) k/uL Neutrophils # 13.6 H (1.3-7.7) k/uL Lymphocytes # 0.9 L (1.0-4.8) k/uL ABG pH (7.35-7.45) ABG pCO2 (35-45) mmHg ABG Total CO2 (19-24) mmol/L Potassium 3.4 L (3.5-5.1) mmol/L Chloride 112 H (98-107) mmol/L BUN 56 H (7-17) mg/dL Creatinine 3.74 H (0.52-1.04) mg/dL Glucose 184 H (74-99) mg/dL POC Glucose (mg/dL) 195 H (75-99) mg/dL Calcium 6.7 L (8.4-10.2) mg/dL AST 132 H (14-36) U/L Alkaline Phosphatase 232 H (38-126) U/L Total Protein 4.7 L (6.3-8.2) g/dL Albumin 2.0 L (3.5-5.0) g/dL Procalcitonin (0.02-0.09) ng/mL 02/22/21 02/22/21 02/22/21 Range/Units 05:06 06:10 06:15 WBC (3.8-10.6) k/uL RBC (3.80-5.40) m/uL Hgb (11.4-16.0) gm/dL Hct (34.0-46.0) % RDW (11.5-15.5) % Plt Count (150-450) k/uL Neutrophils # (1.3-7.7) k/uL Lymphocytes # (1.0-4.8) k/uL ABG pH 7.29 L (7.35-7.45) ABG pCO2 50 H (35-45) mmHg ABG Total CO2 26 H (19-24) mmol/L Potassium (3.5-5.1) mmol/L Chloride (98-107) mmol/L BUN (7-17) mg/dL Creatinine (0.52-1.04) mg/dL Glucose (74-99) mg/dL POC Glucose (mg/dL) 190 H 178 H (75-99) mg/dL Calcium (8.4-10.2) mg/dL AST (14-36) U/L Alkaline Phosphatase (38-126) U/L Total Protein (6.3-8.2) g/dL Albumin (3.5-5.0) g/dL Procalcitonin (0.02-0.09) ng/mL 02/22/21 02/22/21 Range/Units 06:59 08:03 WBC (3.8-10.6) k/uL RBC (3.80-5.40) m/uL Hgb (11.4-16.0) gm/dL Hct (34.0-46.0) % RDW (11.5-15.5) % Plt Count (150-450) k/uL Neutrophils # (1.3-7.7) k/uL Lymphocytes # (1.0-4.8) k/uL ABG pH (7.35-7.45) ABG pCO2 (35-45) mmHg ABG Total CO2 (19-24) mmol/L Potassium (3.5-5.1) mmol/L Chloride (98-107) mmol/L BUN (7-17) mg/dL Creatinine (0.52-1.04) mg/dL Glucose (74-99) mg/dL POC Glucose (mg/dL) 185 H 181 H (75-99) mg/dL Calcium (8.4-10.2) mg/dL AST (14-36) U/L Alkaline Phosphatase (38-126) U/L Total Protein (6.3-8.2) g/dL Albumin (3.5-5.0) g/dL Procalcitonin (0.02-0.09) ng/mL Microbiology - Last 24 Hours (Table) 02/21/21 09:35 Blood Culture Gram Stain - Preliminary Blood 02/20/21 09:35 Blood Culture - Final Blood 02/20/21 09:01 Blood Culture Gram Stain - Preliminary Blood 02/20/21 09:01 Blood Culture - Final Blood Assessment and Plan Plan: Assessment: #1. Acute hypoxic respiratory failure related to acute out of hospital cardiac arrest with estimated down time of 34 minutes before return of spontaneous circulation. Patient was intubated out in the field on 02/13/2021, was weaned and extubated on 02/16/2021 however had to be reintubated on 02/17/2021 for worsening hypoxia, and dyspnea. #2. Septic shock secondary to methicillin sensitive staph aureus bacteremia/pneumonia/sepsis. Patient is currently on cefepime, did receive a dose of vancomycin. Pro-calcitonin remains elevated, and blood cultures show persistent bacteremia. Currently the blood pressure is improved, patient is still requiring a small dose of norepinephrine, vasopressin has been weaned off #3. Unresponsive comatose state after cardiac arrest, likely related to anoxic brain injury, neurology is on the case, sedation has been off for the last 48 hours, brain CT has shown no acute findings #4. Metabolic acidosis related to acute kidney injury, and patient has been started on hemodialysis on 02/20/2021, she is on oral bicarbonate #5. Acute anterior wall myocardial infarction, status post stenting of the LAD on 02/13/2021 #6. History of diabetes mellitus type 2 #7. Hypertension #8. Hyperlipidemia #9. Hypothyroidism #10. Morbid obesity with BMI of 45.3 kg/m #11. Never smoker #12. History of coronary artery disease #13. New onset atrial fibrillation #14. History of marijuana smoking Plan: Patient remains deeply comatose, unresponsive, sedation has been on hold for last 48 hours Suspect anoxic brain injury. Repeat brain CT showed no acute findings Continue holding sedation and narcotics Today's chest x-ray shows no significant change Continue current ventilator settings Currently on assist control mode of ventilation with a rate of 28, tidal volume 400, FiO2 of 50% and PEEP of 15 Hemodynamically patient is stable, she remains in sinus mechanism, vasopressor requirements are significantly down, patient is down to 11 mics per minute on norepinephrine, is not requiring vasopressin White count is improving, However follow-up blood cultures are still positive for gram-positive cocci in groups, will await final cultures We'll give 1 dose of IV vancomycin Consult Dr. Narayanan from ID service Continue cefepime Hemodialysis per nephrology Patient remains anuric She had hemodialysis yesterday, Less acidotic on today's blood gas and chem profile Neurology recs, possible EEG today Daily blood work, including CBC, CMP, chest x-ray and blood gases Has not had recurrence of atrial fibrillation Antiplatelet therapy, rate control medications per cardiology We'll add Lovenox 30 mg subcu for DVT prophylaxis Overall prognosis is extremely poor and guarded We'll continue to follow I performed a history & physical examination of the patient and discussed their management with my nurse practitioner, Ana Tran. I reviewed the nurse practitioner's note and agree with the documented findings and plan of care. Lung sounds are positive for dim breath sounds throughout the lung davalos. The findings and the impression was discussed with the patient. I attest to the documentation by the nurse practitioner. Time with Patient: Greater than 30
[2021-02-22] MEDS ORDERED: VANCOMYCIN IV PER PHARMACY 1 EACH MISC MISCELLANE PRN (09:15)
--- NOTE | 2021-02-22 09:17 | XR ---
EXAMINATION TYPE: XR chest 1V portable DATE OF EXAM: 02/22/2021 COMPARISON: Chest x-ray dated 02/21/2021 HISTORY: Intubated TECHNIQUE: Single frontal view of the chest is obtained. FINDINGS: Endotracheal tube and NG tube are overlying appropriate positions, there is a left jugular central venous catheter, distal tip is overlying the cavoatrial junction. Patient is rotated, there is no evident pneumothorax. Left hemidiaphragm remains obscured, there is blunting of left costophren ic angle. Exam is expiratory. Cardiac mediastinal silhouette is stable. Bilateral airspace disease is present, there are overlying artifacts. IMPRESSION: Correlate for pneumonia, congestive heart failure, ARDS, difficult to exclude effusion
[2021-02-22] MEDS: ENOXAPARIN 30 MG/0.3 ML SYRINGE SQ SCH (09:54)
--- NOTE | 2021-02-22 10:00 | ECHOF ---
Referral Reason:hypotension MEASUREMENTS -------- HEIGHT: 172.7 cm WEIGHT: 139.7 kg BP: 116/33 IVSd: 2.1 cm (0.6 - 1.1) LVIDd: 3.8 cm (3.9 - 5.3) LVPWd: 1.6 cm (0.6 - 1.1) IVSs: 1.6 cm LVIDs: 2.5 cm LVPWs: 1.9 cm FINDINGS -------- Sinus rhythm. This was a technically difficult study with suboptimal views. Limited Study The left ventricular size is normal. There is severe concentric left ventricular hypertrophy. Ove rall left ventricular systolic function is normal with, an EF between 55 - 60 %. 4.0mg of Lumason was utilized for enhancement of images There is no pericardial effusion. CONCLUSIONS -------- 1. The left ventricular size is normal. 2. There is severe concentric left ventricular hypertrophy. 3. Overall left ventricular systolic function is normal with, an EF between 55 - 60 %. [employer] TECHNICIAN: Mackenzie Ruano [facility] [place]
[2021-02-22 10:02] LABS: Glucose,Whole Blood 163 mg/dL (75-99)
[2021-02-22] MEDS: NOREPINEPHRINE 32 MG in SODIUM CHLORIDE 0.9% 218 ML IV SCH ×2 (10:26→17:19)
--- NOTE | 2021-02-22 10:46 | P.PN ---
Subjective Progress Note Date: 02/22/21 Patient is a 65-year-old female admitted with acute myocardial infarction and underwent emergency revascularization. Patient came in with ventricular tachycardia, cardiac arrest and remains intubated. Patient is currently mechanically ventilated and unresponsive. Sedation has been discontinued since 02/20/2021. Patient underwent a CT of the brain which was negative for an acute stroke. She remains on levo for blood pressure. Patient's blood culture continue to come back positive and is being treated with IV antibiotics. Chest x-ray today correlates for pneumonia, congestive heart failure, and possible ARDS. Her echocardiogram showed normal LV function with ejection fraction of 55- 60%. Patient is receiving dialysis tomorrow. Blood pressure today is 164/69, heart rate 112, respirations 21, mechanically ventilated. Labs today reveal hemoglobin of 8, potassium 3.4, BUNs 3.74, AST 132, ALT 25. Objective - Vital Signs Vital signs: Vital Signs Temp 99.3 F 02/22/21 09:08 Pulse 112 H 02/22/21 10:00 Resp 21 02/22/21 10:00 BP 116/55 02/22/21 06:00 Pulse Ox 99 02/22/21 10:00 Intake & Output 02/21/21 02/22/21 02/22/21 18:59 06:59 18:59 Intake Total 2153.760 2406.715 601.707 Output Total 1020 15 0 Balance 0625.692 5243.715 601.707 Weight 142 kg Intake: IV 972 972 159 PRESSURE BAGS Sodium 72 72 24 chloride 0.9 Sodium Chloride 0.9% 1, 900 900 135 000 ml @ 20 mls/hr IV . Q24H [facility] Rx#:[id number] Intake, IV Titration 101.760 174.715 97.707 Amount Cefepime 1 gm In Sodium 50 Chloride 0.9% 50 ml @ 12. 5 mls/hr IVPB Q12HR [facility] Rx#:[id number] Insulin Regular 100 unit 53.458 73.350 23.800 In Sodium Chloride 0.9% 100 ml @ Per Protocol IV .Q0M [facility] Rx#:[id number] Norepinephrine 32 mg In 48.302 101.365 23.907 Sodium Chloride 0.9% 218 ml @ 0.05 MCG/KG/MIN 3. 202 mls/hr IV .Q24H [facility] Rx#:[id number] Tube Feeding 540 660 275 Other 540 600 70 Output: Urine 20 15 0 Hemodialysis 1000 Other: Voiding Method Indwelling Catheter Indwelling Catheter ABP, PAP, CO, CI - Last Documented Arterial Blood Pressure 164/69 - Exam PHYSICAL EXAM: VITAL SIGNS: Reviewed. GENERAL: Well-developed in no acute distress. HEENT: Head is normocephalic. Pupils are equal, round. Sclerae anicteric. Mucous membranes of the mouth are moist. NECK: Supple. No JVD or thyromegaly RESPIRATORY: Respirations even and unlabored. Lungs diminished to auscultation bilaterally. Patient is mechanically ventilated CARDIO: Regular rate and rhythm. S1 and S2 heard. No murmur or gallops. EXTREMITIES: No clubbing or cyanosis. Peripheral pulses intact. Negative for bilateral lower extremity edema NEURO: Patient is unresponsive, No response to pain - Labs CBC & Chem 7: 02/22/21 03:55 02/22/21 03:55 Labs: Abnormal Lab Results - Last 24 Hours (Table) 02/21/21 02/21/21 02/21/21 Range/Units 03:00 10:41 11:11 WBC (3.8-10.6) k/uL RBC (3.80-5.40) m/uL Hgb (11.4-16.0) gm/dL Hct (34.0-46.0) % RDW (11.5-15.5) % Plt Count (150-450) k/uL Neutrophils # (1.3-7.7) k/uL Lymphocytes # (1.0-4.8) k/uL ABG pH (7.35-7.45) ABG pCO2 (35-45) mmHg ABG Total CO2 (19-24) mmol/L Potassium (3.5-5.1) mmol/L Chloride (98-107) mmol/L BUN (7-17) mg/dL Creatinine (0.52-1.04) mg/dL Glucose (74-99) mg/dL POC Glucose (mg/dL) 151 H 136 H (75-99) mg/dL Calcium (8.4-10.2) mg/dL AST (14-36) U/L Alkaline Phosphatase (38-126) U/L Total Protein (6.3-8.2) g/dL Albumin (3.5-5.0) g/dL Procalcitonin 16.90 H (0.02-0.09) ng/mL 02/21/21 02/21/21 02/21/21 Range/Units 12:07 12:50 14:04 WBC (3.8-10.6) k/uL RBC (3.80-5.40) m/uL Hgb (11.4-16.0) gm/dL Hct (34.0-46.0) % RDW (11.5-15.5) % Plt Count (150-450) k/uL Neutrophils # (1.3-7.7) k/uL Lymphocytes # (1.0-4.8) k/uL ABG pH (7.35-7.45) ABG pCO2 (35-45) mmHg ABG Total CO2 (19-24) mmol/L Potassium (3.5-5.1) mmol/L Chloride (98-107) mmol/L BUN (7-17) mg/dL Creatinine (0.52-1.04) mg/dL Glucose (74-99) mg/dL POC Glucose (mg/dL) 144 H 155 H 169 H (75-99) mg/dL Calcium (8.4-10.2) mg/dL AST (14-36) U/L Alkaline Phosphatase (38-126) U/L Total Protein (6.3-8.2) g/dL Albumin (3.5-5.0) g/dL Procalcitonin (0.02-0.09) ng/mL 02/21/21 02/21/21 02/21/21 Range/Units 15:05 17:24 18:14 WBC (3.8-10.6) k/uL RBC (3.80-5.40) m/uL Hgb (11.4-16.0) gm/dL Hct (34.0-46.0) % RDW (11.5-15.5) % Plt Count (150-450) k/uL Neutrophils # (1.3-7.7) k/uL Lymphocytes # (1.0-4.8) k/uL ABG pH (7.35-7.45) ABG pCO2 (35-45) mmHg ABG Total CO2 (19-24) mmol/L Potassium (3.5-5.1) mmol/L Chloride (98-107) mmol/L BUN (7-17) mg/dL Creatinine (0.52-1.04) mg/dL Glucose (74-99) mg/dL POC Glucose (mg/dL) 183 H 182 H 217 H (75-99) mg/dL Calcium (8.4-10.2) mg/dL AST (14-36) U/L Alkaline Phosphatase (38-126) U/L Total Protein (6.3-8.2) g/dL Albumin (3.5-5.0) g/dL Procalcitonin (0.02-0.09) ng/mL 02/21/21 02/21/21 02/21/21 Range/Units 18:50 20:05 20:59 WBC (3.8-10.6) k/uL RBC (3.80-5.40) m/uL Hgb (11.4-16.0) gm/dL Hct (34.0-46.0) % RDW (11.5-15.5) % Plt Count (150-450) k/uL Neutrophils # (1.3-7.7) k/uL Lymphocytes # (1.0-4.8) k/uL ABG pH (7.35-7.45) ABG pCO2 (35-45) mmHg ABG Total CO2 (19-24) mmol/L Potassium (3.5-5.1) mmol/L Chloride (98-107) mmol/L BUN (7-17) mg/dL Creatinine (0.52-1.04) mg/dL Glucose (74-99) mg/dL POC Glucose (mg/dL) 192 H 137 H 215 H (75-99) mg/dL Calcium (8.4-10.2) mg/dL AST (14-36) U/L Alkaline Phosphatase (38-126) U/L Total Protein (6.3-8.2) g/dL Albumin (3.5-5.0) g/dL Procalcitonin (0.02-0.09) ng/mL 02/21/21 02/21/21 02/22/21 Range/Units 22:07 23:07 00:05 WBC (3.8-10.6) k/uL RBC (3.80-5.40) m/uL Hgb (11.4-16.0) gm/dL Hct (34.0-46.0) % RDW (11.5-15.5) % Plt Count (150-450) k/uL Neutrophils # (1.3-7.7) k/uL Lymphocytes # (1.0-4.8) k/uL ABG pH (7.35-7.45) ABG pCO2 (35-45) mmHg ABG Total CO2 (19-24) mmol/L Potassium (3.5-5.1) mmol/L Chloride (98-107) mmol/L BUN (7-17) mg/dL Creatinine (0.52-1.04) mg/dL Glucose (74-99) mg/dL POC Glucose (mg/dL) 225 H 202 H 215 H (75-99) mg/dL Calcium (8.4-10.2) mg/dL AST (14-36) U/L Alkaline Phosphatase (38-126) U/L Total Protein (6.3-8.2) g/dL Albumin (3.5-5.0) g/dL Procalcitonin (0.02-0.09) ng/mL 02/22/21 02/22/21 02/22/21 Range/Units 01:12 02:01 03:55 WBC 15.4 H (3.8-10.6) k/uL RBC 2.76 L (3.80-5.40) m/uL Hgb 8.0 L (11.4-16.0) gm/dL Hct 25.5 L (34.0-46.0) % RDW 16.9 H (11.5-15.5) % Plt Count 147 L (150-450) k/uL Neutrophils # 13.6 H (1.3-7.7) k/uL Lymphocytes # 0.9 L (1.0-4.8) k/uL ABG pH (7.35-7.45) ABG pCO2 (35-45) mmHg ABG Total CO2 (19-24) mmol/L Potassium (3.5-5.1) mmol/L Chloride (98-107) mmol/L BUN (7-17) mg/dL Creatinine (0.52-1.04) mg/dL Glucose (74-99) mg/dL POC Glucose (mg/dL) 206 H 205 H (75-99) mg/dL Calcium (8.4-10.2) mg/dL AST (14-36) U/L Alkaline Phosphatase (38-126) U/L Total Protein (6.3-8.2) g/dL Albumin (3.5-5.0) g/dL Procalcitonin (0.02-0.09) ng/mL 02/22/21 02/22/21 02/22/21 Range/Units 03:55 04:03 05:06 WBC (3.8-10.6) k/uL RBC (3.80-5.40) m/uL Hgb (11.4-16.0) gm/dL Hct (34.0-46.0) % RDW (11.5-15.5) % Plt Count (150-450) k/uL Neutrophils # (1.3-7.7) k/uL Lymphocytes # (1.0-4.8) k/uL ABG pH (7.35-7.45) ABG pCO2 (35-45) mmHg ABG Total CO2 (19-24) mmol/L Potassium 3.4 L (3.5-5.1) mmol/L Chloride 112 H (98-107) mmol/L BUN 56 H (7-17) mg/dL Creatinine 3.74 H (0.52-1.04) mg/dL Glucose 184 H (74-99) mg/dL POC Glucose (mg/dL) 195 H 190 H (75-99) mg/dL Calcium 6.7 L (8.4-10.2) mg/dL AST 132 H (14-36) U/L Alkaline Phosphatase 232 H (38-126) U/L Total Protein 4.7 L (6.3-8.2) g/dL Albumin 2.0 L (3.5-5.0) g/dL Procalcitonin (0.02-0.09) ng/mL 02/22/21 02/22/21 02/22/21 Range/Units 06:10 06:15 06:59 WBC (3.8-10.6) k/uL RBC (3.80-5.40) m/uL Hgb (11.4-16.0) gm/dL Hct (34.0-46.0) % RDW (11.5-15.5) % Plt Count (150-450) k/uL Neutrophils # (1.3-7.7) k/uL Lymphocytes # (1.0-4.8) k/uL ABG pH 7.29 L (7.35-7.45) ABG pCO2 50 H (35-45) mmHg ABG Total CO2 26 H (19-24) mmol/L Potassium (3.5-5.1) mmol/L Chloride (98-107) mmol/L BUN (7-17) mg/dL Creatinine (0.52-1.04) mg/dL Glucose (74-99) mg/dL POC Glucose (mg/dL) 178 H 185 H (75-99) mg/dL Calcium (8.4-10.2) mg/dL AST (14-36) U/L Alkaline Phosphatase (38-126) U/L Total Protein (6.3-8.2) g/dL Albumin (3.5-5.0) g/dL Procalcitonin (0.02-0.09) ng/mL 02/22/21 02/22/21 02/22/21 Range/Units 08:03 09:04 10:00 WBC (3.8-10.6) k/uL RBC (3.80-5.40) m/uL Hgb (11.4-16.0) gm/dL Hct (34.0-46.0) % RDW (11.5-15.5) % Plt Count (150-450) k/uL Neutrophils # (1.3-7.7) k/uL Lymphocytes # (1.0-4.8) k/uL ABG pH (7.35-7.45) ABG pCO2 (35-45) mmHg ABG Total CO2 (19-24) mmol/L Potassium (3.5-5.1) mmol/L Chloride (98-107) mmol/L BUN (7-17) mg/dL Creatinine (0.52-1.04) mg/dL Glucose (74-99) mg/dL POC Glucose (mg/dL) 181 H 180 H 163 H (75-99) mg/dL Calcium (8.4-10.2) mg/dL AST (14-36) U/L Alkaline Phosphatase (38-126) U/L Total Protein (6.3-8.2) g/dL Albumin (3.5-5.0) g/dL Procalcitonin (0.02-0.09) ng/mL Microbiology - Last 24 Hours (Table) 02/21/21 09:35 Blood Culture Gram Stain - Preliminary Blood 02/20/21 09:35 Blood Culture - Final Blood 02/20/21 09:01 Blood Culture Gram Stain - Preliminary Blood 02/20/21 09:01 Blood Culture - Final Blood Assessment and Plan Assessment: Status post cardiac arrest Revascularization and angioplasty Respiratory failure requiring mechanical ventilation Unresponsiveness, probably related to hypoxic ischemia encephalopathy Plan: Continue with all current cardiac medications prognosis is guarded
[2021-02-22 11:00] LABS: Glucose,Whole Blood 161 mg/dL (75-99)
[2021-02-22] MEDS ORDERED: VANCOMYCIN 2,500 MG in SODIUM CHLORIDE 0.9% 500 ML 500 ML IVPB ONE (11:00)
[2021-02-22 11:54] LABS: Glucose,Whole Blood 172 mg/dL (75-99)
[2021-02-22 13:02] LABS: Glucose,Whole Blood 158 mg/dL (75-99)
[2021-02-22 14:10] LABS: Glucose,Whole Blood 155 mg/dL (75-99)
[2021-02-22 15:03] LABS: Glucose,Whole Blood 153 mg/dL (75-99)
--- NOTE | 2021-02-22 15:54 | P.PN ---
Subjective Progress Note Date: 02/22/21 The patient is seen at bedside and per nurse no improvement in patient condition. Objective - Vital Signs Vital signs: Vital Signs Temp 99 F 02/22/21 12:00 Pulse 110 H 02/22/21 15:43 Resp 36 H 02/22/21 15:30 BP 116/55 02/22/21 06:00 Pulse Ox 100 02/22/21 15:30 Intake & Output 02/21/21 02/22/21 02/22/21 18:59 06:59 18:59 Intake Total 2153.760 2406.715 1114.006 Output Total 1020 15 5 Balance 0442.641 2212.715 1109.006 Weight 142 kg 142 kg Intake: IV 972 972 269 PRESSURE BAGS Sodium 72 72 54 chloride 0.9 Sodium Chloride 0.9% 1, 900 900 215 000 ml @ 20 mls/hr IV . Q24H [facility] Rx#:[id number] Intake, IV Titration 101.760 174.715 120.006 Amount Cefepime 1 gm In Sodium 50 Chloride 0.9% 50 ml @ 12. 5 mls/hr IVPB Q12HR [facility] Rx#:[id number] Insulin Regular 100 unit 53.458 73.350 40.208 In Sodium Chloride 0.9% 100 ml @ Per Protocol IV .Q0M [facility] Rx#:[id number] Norepinephrine 32 mg In 48.302 101.365 29.798 Sodium Chloride 0.9% 218 ml @ 0.05 MCG/KG/MIN 3. 202 mls/hr IV .Q24H [facility] Rx#:[id number] Tube Feeding 540 660 605 Lipid 20 PRESSURE BAGS Sodium 20 chloride 0.9 Other 540 600 100 Output: Urine 20 15 5 Hemodialysis 1000 Other: Voiding Method Indwelling Catheter Indwelling Catheter ABP, PAP, CO, CI - Last Documented Arterial Blood Pressure 149/50 - Exam GENERAL: The patient is morbid obese woman, lying in bed and does not seem in acute distress. LUNG: Clear to auscultation bilaterally no wheezing noted throughout. Not labored breathing. Intubated on ventilator. NEUROLOGICAL: Limited because of condition. Last IV sedation was on 02/20/21 at 8am. Higher mental function: The patient is comatose GCS 7 ( E1, VT1, M5). The patient is not verbally responsive or following commands. Cranial nerves: I manually opened her eyes. The primary gaze is midline. The pupils are round, equal (3-4mm) and reactive to light. Positive corneal reflex bilaterally. No facial weaknesss. Is breathing over the vent. Negative gag reflex. Motor: The strength is hard to assess because of her condition. But was minimally withdrawing to painful stimuli over the left upper extremity and left lower extremity. Normal tone and bulk. Cerebellum: Could not assess. Sensation: Could not assess light touch but seem to notice painful stimuli over the left side. WORK-UP: * AST of 123 which is trending up while ALTs 25. * Ammonia level 11. * His creatnine is trending up. On presentation it was 0.91 * Ionized calcium is 4.5. * Patient white blood cell is trending up is 23.0 * Computed tomography scan of head 02/14/21: Is reported as degenerative and non specific white matter changes are nonspecific. * Repeat CT head on 02/21/21: No acute intracranial hemorrhage or midline shift. There is mild diffuse age-related cerebral atrophy and chronic small vessel ischemic change redomenstarted without significant interval change. * EEG was abnormal due to background slowing of mild to moderate degree. This is suggestive of generalized cerebral dysfunction as can be seen with toxic metabolic encephalopathy or from diffuse structural brain abnormality. No epileptiform activity was seen. * 2-D echo was reported as left ventricular size is normal. Mild concentric left ventricular hypertrophy. Ejection fraction of 50-55%. - Labs CBC & Chem 7: 02/22/21 03:55 02/22/21 03:55 Labs: Abnormal Lab Results - Last 24 Hours (Table) 02/21/21 02/21/21 02/21/21 Range/Units 17:24 18:14 18:50 WBC (3.8-10.6) k/uL RBC (3.80-5.40) m/uL Hgb (11.4-16.0) gm/dL Hct (34.0-46.0) % RDW (11.5-15.5) % Plt Count (150-450) k/uL Neutrophils # (1.3-7.7) k/uL Lymphocytes # (1.0-4.8) k/uL ABG pH (7.35-7.45) ABG pCO2 (35-45) mmHg ABG Total CO2 (19-24) mmol/L Potassium (3.5-5.1) mmol/L Chloride (98-107) mmol/L BUN (7-17) mg/dL Creatinine (0.52-1.04) mg/dL Glucose (74-99) mg/dL POC Glucose (mg/dL) 182 H 217 H 192 H (75-99) mg/dL Calcium (8.4-10.2) mg/dL AST (14-36) U/L Alkaline Phosphatase (38-126) U/L Total Protein (6.3-8.2) g/dL Albumin (3.5-5.0) g/dL 02/21/21 02/21/21 02/21/21 Range/Units 20:05 20:59 22:07 WBC (3.8-10.6) k/uL RBC (3.80-5.40) m/uL Hgb (11.4-16.0) gm/dL Hct (34.0-46.0) % RDW (11.5-15.5) % Plt Count (150-450) k/uL Neutrophils # (1.3-7.7) k/uL Lymphocytes # (1.0-4.8) k/uL ABG pH (7.35-7.45) ABG pCO2 (35-45) mmHg ABG Total CO2 (19-24) mmol/L Potassium (3.5-5.1) mmol/L Chloride (98-107) mmol/L BUN (7-17) mg/dL Creatinine (0.52-1.04) mg/dL Glucose (74-99) mg/dL POC Glucose (mg/dL) 137 H 215 H 225 H (75-99) mg/dL Calcium (8.4-10.2) mg/dL AST (14-36) U/L Alkaline Phosphatase (38-126) U/L Total Protein (6.3-8.2) g/dL Albumin (3.5-5.0) g/dL 02/21/21 02/22/21 02/22/21 Range/Units 23:07 00:05 01:12 WBC (3.8-10.6) k/uL RBC (3.80-5.40) m/uL Hgb (11.4-16.0) gm/dL Hct (34.0-46.0) % RDW (11.5-15.5) % Plt Count (150-450) k/uL Neutrophils # (1.3-7.7) k/uL Lymphocytes # (1.0-4.8) k/uL ABG pH (7.35-7.45) ABG pCO2 (35-45) mmHg ABG Total CO2 (19-24) mmol/L Potassium (3.5-5.1) mmol/L Chloride (98-107) mmol/L BUN (7-17) mg/dL Creatinine (0.52-1.04) mg/dL Glucose (74-99) mg/dL POC Glucose (mg/dL) 202 H 215 H 206 H (75-99) mg/dL Calcium (8.4-10.2) mg/dL AST (14-36) U/L Alkaline Phosphatase (38-126) U/L Total Protein (6.3-8.2) g/dL Albumin (3.5-5.0) g/dL 02/22/21 02/22/21 02/22/21 Range/Units 02:01 03:55 03:55 WBC 15.4 H (3.8-10.6) k/uL RBC 2.76 L (3.80-5.40) m/uL Hgb 8.0 L (11.4-16.0) gm/dL Hct 25.5 L (34.0-46.0) % RDW 16.9 H (11.5-15.5) % Plt Count 147 L (150-450) k/uL Neutrophils # 13.6 H (1.3-7.7) k/uL Lymphocytes # 0.9 L (1.0-4.8) k/uL ABG pH (7.35-7.45) ABG pCO2 (35-45) mmHg ABG Total CO2 (19-24) mmol/L Potassium 3.4 L (3.5-5.1) mmol/L Chloride 112 H (98-107) mmol/L BUN 56 H (7-17) mg/dL Creatinine 3.74 H (0.52-1.04) mg/dL Glucose 184 H (74-99) mg/dL POC Glucose (mg/dL) 205 H (75-99) mg/dL Calcium 6.7 L (8.4-10.2) mg/dL AST 132 H (14-36) U/L Alkaline Phosphatase 232 H (38-126) U/L Total Protein 4.7 L (6.3-8.2) g/dL Albumin 2.0 L (3.5-5.0) g/dL 02/22/21 02/22/21 02/22/21 Range/Units 04:03 05:06 06:10 WBC (3.8-10.6) k/uL RBC (3.80-5.40) m/uL Hgb (11.4-16.0) gm/dL Hct (34.0-46.0) % RDW (11.5-15.5) % Plt Count (150-450) k/uL Neutrophils # (1.3-7.7) k/uL Lymphocytes # (1.0-4.8) k/uL ABG pH (7.35-7.45) ABG pCO2 (35-45) mmHg ABG Total CO2 (19-24) mmol/L Potassium (3.5-5.1) mmol/L Chloride (98-107) mmol/L BUN (7-17) mg/dL Creatinine (0.52-1.04) mg/dL Glucose (74-99) mg/dL POC Glucose (mg/dL) 195 H 190 H 178 H (75-99) mg/dL Calcium (8.4-10.2) mg/dL AST (14-36) U/L Alkaline Phosphatase (38-126) U/L Total Protein (6.3-8.2) g/dL Albumin (3.5-5.0) g/dL 02/22/21 02/22/21 02/22/21 Range/Units 06:15 06:59 08:03 WBC (3.8-10.6) k/uL RBC (3.80-5.40) m/uL Hgb (11.4-16.0) gm/dL Hct (34.0-46.0) % RDW (11.5-15.5) % Plt Count (150-450) k/uL Neutrophils # (1.3-7.7) k/uL Lymphocytes # (1.0-4.8) k/uL ABG pH 7.29 L (7.35-7.45) ABG pCO2 50 H (35-45) mmHg ABG Total CO2 26 H (19-24) mmol/L Potassium (3.5-5.1) mmol/L Chloride (98-107) mmol/L BUN (7-17) mg/dL Creatinine (0.52-1.04) mg/dL Glucose (74-99) mg/dL POC Glucose (mg/dL) 185 H 181 H (75-99) mg/dL Calcium (8.4-10.2) mg/dL AST (14-36) U/L Alkaline Phosphatase (38-126) U/L Total Protein (6.3-8.2) g/dL Albumin (3.5-5.0) g/dL 02/22/21 02/22/21 02/22/21 Range/Units 09:04 10:00 10:58 WBC (3.8-10.6) k/uL RBC (3.80-5.40) m/uL Hgb (11.4-16.0) gm/dL Hct (34.0-46.0) % RDW (11.5-15.5) % Plt Count (150-450) k/uL Neutrophils # (1.3-7.7) k/uL Lymphocytes # (1.0-4.8) k/uL ABG pH (7.35-7.45) ABG pCO2 (35-45) mmHg ABG Total CO2 (19-24) mmol/L Potassium (3.5-5.1) mmol/L Chloride (98-107) mmol/L BUN (7-17) mg/dL Creatinine (0.52-1.04) mg/dL Glucose (74-99) mg/dL POC Glucose (mg/dL) 180 H 163 H 161 H (75-99) mg/dL Calcium (8.4-10.2) mg/dL AST (14-36) U/L Alkaline Phosphatase (38-126) U/L Total Protein (6.3-8.2) g/dL Albumin (3.5-5.0) g/dL 02/22/21 02/22/21 02/22/21 Range/Units 11:52 13:00 14:08 WBC (3.8-10.6) k/uL RBC (3.80-5.40) m/uL Hgb (11.4-16.0) gm/dL Hct (34.0-46.0) % RDW (11.5-15.5) % Plt Count (150-450) k/uL Neutrophils # (1.3-7.7) k/uL Lymphocytes # (1.0-4.8) k/uL ABG pH (7.35-7.45) ABG pCO2 (35-45) mmHg ABG Total CO2 (19-24) mmol/L Potassium (3.5-5.1) mmol/L Chloride (98-107) mmol/L BUN (7-17) mg/dL Creatinine (0.52-1.04) mg/dL Glucose (74-99) mg/dL POC Glucose (mg/dL) 172 H 158 H 155 H (75-99) mg/dL Calcium (8.4-10.2) mg/dL AST (14-36) U/L Alkaline Phosphatase (38-126) U/L Total Protein (6.3-8.2) g/dL Albumin (3.5-5.0) g/dL 02/22/21 Range/Units 15:01 WBC (3.8-10.6) k/uL RBC (3.80-5.40) m/uL Hgb (11.4-16.0) gm/dL Hct (34.0-46.0) % RDW (11.5-15.5) % Plt Count (150-450) k/uL Neutrophils # (1.3-7.7) k/uL Lymphocytes # (1.0-4.8) k/uL ABG pH (7.35-7.45) ABG pCO2 (35-45) mmHg ABG Total CO2 (19-24) mmol/L Potassium (3.5-5.1) mmol/L Chloride (98-107) mmol/L BUN (7-17) mg/dL Creatinine (0.52-1.04) mg/dL Glucose (74-99) mg/dL POC Glucose (mg/dL) 153 H (75-99) mg/dL Calcium (8.4-10.2) mg/dL AST (14-36) U/L Alkaline Phosphatase (38-126) U/L Total Protein (6.3-8.2) g/dL Albumin (3.5-5.0) g/dL Microbiology - Last 24 Hours (Table) 02/21/21 09:35 Blood Culture Gram Stain - Preliminary Blood Blood Culture - Preliminary Staphylococcus aureus 02/20/21 09:35 Blood Culture - Final Blood Assessment and Plan Assessment: * Altered mental status due to multifactorial: anoxic encephalopathy due to cardiac arrest (24 minutes), septic encephalopathy and component of toxic- metabolic encephalopathy (her creatine is trending up, with slight elevation of AST). Has component of medication effect (Propofol which was discontinued 24 hours ago) and take time to resolve since BRITT[place]. * Status post cardiac arrest, with the downtime of 32 minutes. Patient was extubated 02/16/2021 doing quite well, following commands appropriately, and then re-intubated on 02/17/2021 due to respiratory distress. * Epic shock secondary due to methicillin sensitive staph aureus bacteremia/pneumonia. Is on antibiotic and pressors. Most current vital is hypotensive. * Acute kidney injury and is trending upward getting dialysis on 02/21/21. * Mild hepatopathy * Acute STEMI, * New onset atrial fibrillation vertigo to normal sinus rhythm. * History of Diabetes * History of hypothyroidism * Hypertension * CAD Plan: I Feel the repeat EEG is not warranted at this time since it is felt more metabolic encephalopathy. Had previous EEG and no seizure or epileptiform activity seen on prior EEG (02/15/21). Q2 neuro checks. Please avoid any hypotensive episode we'll defer the management to the primary and ICU team. Defer the rest of the medical management to the primary ICU team CONDITION: Is very guarded. The plan is discussed with the patient's nurse. Dominic Chávez M.D. Neuro-Hospitalist Time with Patient: Less than 30
[2021-02-22 16:18] LABS: Glucose,Whole Blood 151 mg/dL (75-99)
[2021-02-22 17:54] LABS: Glucose,Whole Blood 164 mg/dL (75-99)
[2021-02-22 21:33] LABS: Glucose,Whole Blood 165 mg/dL (75-99)
[2021-02-22] MEDS: ATORVASTATIN 80 MG TAB PO SCH (21:40)
--- NOTE | 2021-02-22 21:46 | P.PN ---
Subjective This is a pleasant 65 years old female with past medical history of Coronary Artery Disease , Diabetes Mellitus, GERD, Hypertension, hypothyroidism. She is a patient of Dr. Brambila Patient presents with unresponsiveness and and cardiac arrest. CPR was ongoing through EMS, patient was found in ventricular fibrillation per EMS, Pt was given 5 epi, 5 shocks and 450mg of Amniodarone. Pt did have ROSC for a few minutes but when arriving to ER no pulse present. In the emergency room patient got intubated and placed on mechanical ventilation. Initial vitals showed temperature 97.3, heart rate 79, breathing rate 16, blood pressure 118/71 and 92/62 and she was saturating 96% on mechanical ventilation Labs were showing leukocytosis of 20.5 K. INR 2.7 PH 7.2, pCO2 47 and pO2 59. Sodium 137, low potassium 2.8, normal creatinine 0.9. Glucose elevated to 65. Liver enzymes slightly elevated with AST 83 and ALT 36. Trending up troponin 0.02, 9.4 and 23.9. Coronavirus chest x-ray: Status post intubation. There may be underlying pulmonary edema or pneumonia. Repeat fracture noted on the left Nondetected. EKG showing ST elevation in anterior septal leads V1 to V4 Patient was taken to emergent cardiac cath and she underwent cardiac cathete rization with PCI to the totally occluded proximal LAD. After the procedure patient was placed on aspirin, Brillinta ,and beta beni, GONZALEZ inhibitor and statin Today patient is still intubated in the ICU, and on mechanical ventilation. She has PEEP of 10, FiO2 of 40%, tidal volume 375, she has sinus rhythm at 90 bpm, she has a Mcneil and OG tube. She has normal saline running at 50 mL per hour 02/15/2021 ICU intubated and sedated with pulmonary/critical care team followed closely Patient failed sedation trial yesterday and today. Neurology team on the case PEG showing no epileptiform discharge Ejection fraction is 50-55% Chest x-ray no change from yesterday Labs reviewed, WBC down to 14 K, INR down to normal at 1.5 Patient remains on aspirin and Brilinta Continue with gentle hydration, lisinopril, metoprolol and Aldactone with cardiology and nephrology followed the patient closely 02/16/2021 Patient remains in the ICU intubated and sedated. She is undergoing sedation holiday today as well with possible extubation that are on. She is developing fever of 100.4, her WBCs 15 K. EEG showing no epileptiform discharge. Chest x-ray showing increased perihilar opacity. There are sputum culture, proteincalcitonin. Patient is kept on aspirin and Brilinta and gentle hydration. 02/17/2021 Yesterday patient got extubated and she was doing relatively well until during the night when her respiratory status Worsened and by the morning she has to be intubated again for tachypnea and tachycardia and now she is again on mechanical ventilation. Also patient is a spiking a fever and 102 most likely secondary to pneumonia and patient was started on cefepime with culture has been requested from blood and sputum. 02/18/2021 Today patient still intubated and sedated, she still on mechanical ventilation. With pulmonary/critical care team monitor her closely and following her She is developing pneumonia with sepsis status progressed into septic shock, blood culture and sputum culture are growing staph aureus pending final culture results patient was started on IV vancomycin as well as cefepime. her blood pressure started dropping and she needed levothroid, her creatinine trending up and she is developing oliguria as per last hour she made only 5 ml/h when i checked with the night nurse. therefore 1 l liter of bolus is provided. her sugar is elevated more than 300 and if this not improving she might need to be started on insulin drip. her leukocytosis is at 14 k, creatinine trending up to 1.2. she still has a fever of 102 today. Remains on aspirin and Brilinta, pulmonary/critical care team and cardiology teams on the case 02/19/2021 Patient remains in critical condition needs mechanical ventilation on Levophed for her septic shock secondary to MSSA septicemia and pneumonia with positive sputum on blood culture Her antibiotics were adjusted today about pulmonary/critical care team into Levaquin while they discontinued cefepime and IV vancomycin. Patient still running high fever at 102. And she is becoming oliguric with acute kidney injury creatinine trending up to 2.7. Nephrology consult was obtained as she might need dialysis down the road if no improvement. Chest x-ray shows slight worsening on the right side or an changed. When I reviewed by myself. Antibiotics has just adjusted as above. Also she is on normal saline at 50 mm, insulin drip and pressors. Also she is on aspirin, Brilinta for her new ostomy 02/20/2021 Patient remains intubated and sedated in the ICU. She still in critical condition. She is currently in septic shock secondary to MSSA pneumonia and bacteremia. She's been covered with broad-spectrum antibiotics of Levaquin and cefepime. Continue with IV fluid normal sign 75 and pressors with levophed and vasopressin Also he is on insulin drip. Labs showed leukocytosis of 15.6. Creatinine trending up to 3.7 and patient is oliguric. Patient is started on hemodialysis today, second hemodialysis tomorrow 02/21/2021 Patients with septic shock secondary to MSSA pneumonia and septicemia status post cardiac arrest on arrival to the emergency room, resuscitated and currently intubated in the ICU. She developed oliguric renal failure undergoing hemodialysis. She was taken off sedation with no much response, therefore neurologist is involved and she is having negative CT of the brain. Plan to repeat EEG tomorrow Other than that she remains critically ill in the ICU and kept on broad-spectrum antibiotics with cefepime and Levaquin, aspirin and Brilinta Today DC'd her Levaquin Continue with insulin and drip 02/22/2021 Patient remains in septic shock and respiratory failure requiring intubation and mechanical ventilation. Several consultants on the case including pulmonary/critical care team, nephrology, cardiology, neurology. She still needs pressors. Patient has been afebrile for more than 48 hours but her blood culture showing persistent staff. She received 1 dose of IV vancomycin on the top of cefepime and Levaquin. Infectious disease team were consulted today. WBC is 15 K, creatinine 3.7 and she is undergoing hemodialysis today and tomorrow as she is anuric. Glucose controlled on insulin drip. Hemoglobin is stable at 8.0. She is on aspirin and Brilinta given her cardiac arrest upon admission. Prognosis remains guarded Objective - Vital Signs Vital signs: Vital Signs Temp 99.5 F 02/22/21 16:00 Pulse 99 02/22/21 20:04 Resp 28 H 02/22/21 19:00 BP 116/55 02/22/21 06:00 Pulse Ox 100 02/22/21 19:00 Intake & Output 02/22/21 02/22/21 02/23/21 06:59 18:59 06:59 Intake Total 2406.715 1433.335 136 Output Total 15 15 0 Balance 2391.715 1418.335 136 Weight 142 kg 142 kg Intake: IV 972 347 26 PRESSURE BAGS Sodium 72 72 6 chloride 0.9 Sodium Chloride 0.9% 1, 900 275 20 000 ml @ 20 mls/hr IV . Q24H ADRIANA Rx#:[id number] Intake, IV Titration 174.715 166.335 Amount Cefepime 1 gm In Sodium 50 Chloride 0.9% 50 ml @ 12. 5 mls/hr IVPB Q12HR ADRIANA Rx#:[id number] Insulin Regular 100 unit 73.350 66.791 In Sodium Chloride 0.9% 100 ml @ Per Protocol IV .Q0M ADRIANA Rx#:[id number] Norepinephrine 32 mg In 101.365 49.544 Sodium Chloride 0.9% 218 ml @ 0.05 MCG/KG/MIN 3. 202 mls/hr IV .Q24H ADRIANA Rx#:[id number] Tube Feeding 660 770 110 Lipid 20 PRESSURE BAGS Sodium 20 chloride 0.9 Other 600 130 Output: Urine 15 15 0 Other: Voiding Method Indwelling Catheter Indwelling Catheter ABP, PAP, CO, CI - Last Documented Arterial Blood Pressure 136/47 - Exam -GENERAL: The patient is sedated and intubated, not in any acute distress. morbidly obese HEENT: Pupils are round and equally reacting to light. EOMI. No scleral icterus. No conjunctival pallor. Normocephalic, atraumatic. No pharyngeal erythema. No thyromegaly. CARDIOVASCULAR: S1 and S2 present. No murmurs, rubs, or gallops. PULMONARY: Chest is clear to auscultation, no wheezing. ABDOMEN: Soft, nontender, nondistended, normoactive bowel sounds. No palpable organomegaly. MUSCULOSKELETAL: No joint swelling or deformity. EXTREMITIES: No cyanosis, clubbing, or pedal edema. NEUROLOGICAL: Gross neurological examination did not reveal any focal deficits. SKIN: No rashes. no petechiae. - Labs CBC & Chem 7: 02/22/21 03:55 02/22/21 03:55 Labs: Abnormal Lab Results - Last 24 Hours (Table) 02/21/21 02/21/21 02/22/21 Range/Units 22:07 23:07 00:05 WBC (3.8-10.6) k/uL RBC (3.80-5.40) m/uL Hgb (11.4-16.0) gm/dL Hct (34.0-46.0) % RDW (11.5-15.5) % Plt Count (150-450) k/uL Neutrophils # (1.3-7.7) k/uL Lymphocytes # (1.0-4.8) k/uL ABG pH (7.35-7.45) ABG pCO2 (35-45) mmHg ABG Total CO2 (19-24) mmol/L Potassium (3.5-5.1) mmol/L Chloride (98-107) mmol/L BUN (7-17) mg/dL Creatinine (0.52-1.04) mg/dL Glucose (74-99) mg/dL POC Glucose (mg/dL) 225 H 202 H 215 H (75-99) mg/dL Calcium (8.4-10.2) mg/dL AST (14-36) U/L Alkaline Phosphatase (38-126) U/L Total Protein (6.3-8.2) g/dL Albumin (3.5-5.0) g/dL 02/22/21 02/22/21 02/22/21 Range/Units 01:12 02:01 03:55 WBC 15.4 H (3.8-10.6) k/uL RBC 2.76 L (3.80-5.40) m/uL Hgb 8.0 L (11.4-16.0) gm/dL Hct 25.5 L (34.0-46.0) % RDW 16.9 H (11.5-15.5) % Plt Count 147 L (150-450) k/uL Neutrophils # 13.6 H (1.3-7.7) k/uL Lymphocytes # 0.9 L (1.0-4.8) k/uL ABG pH (7.35-7.45) ABG pCO2 (35-45) mmHg ABG Total CO2 (19-24) mmol/L Potassium (3.5-5.1) mmol/L Chloride (98-107) mmol/L BUN (7-17) mg/dL Creatinine (0.52-1.04) mg/dL Glucose (74-99) mg/dL POC Glucose (mg/dL) 206 H 205 H (75-99) mg/dL Calcium (8.4-10.2) mg/dL AST (14-36) U/L Alkaline Phosphatase (38-126) U/L Total Protein (6.3-8.2) g/dL Albumin (3.5-5.0) g/dL 02/22/21 02/22/21 02/22/21 Range/Units 03:55 04:03 05:06 WBC (3.8-10.6) k/uL RBC (3.80-5.40) m/uL Hgb (11.4-16.0) gm/dL Hct (34.0-46.0) % RDW (11.5-15.5) % Plt Count (150-450) k/uL Neutrophils # (1.3-7.7) k/uL Lymphocytes # (1.0-4.8) k/uL ABG pH (7.35-7.45) ABG pCO2 (35-45) mmHg ABG Total CO2 (19-24) mmol/L Potassium 3.4 L (3.5-5.1) mmol/L Chloride 112 H (98-107) mmol/L BUN 56 H (7-17) mg/dL Creatinine 3.74 H (0.52-1.04) mg/dL Glucose 184 H (74-99) mg/dL POC Glucose (mg/dL) 195 H 190 H (75-99) mg/dL Calcium 6.7 L (8.4-10.2) mg/dL AST 132 H (14-36) U/L Alkaline Phosphatase 232 H (38-126) U/L Total Protein 4.7 L (6.3-8.2) g/dL Albumin 2.0 L (3.5-5.0) g/dL 02/22/21 02/22/21 02/22/21 Range/Units 06:10 06:15 06:59 WBC (3.8-10.6) k/uL RBC (3.80-5.40) m/uL Hgb (11.4-16.0) gm/dL Hct (34.0-46.0) % RDW (11.5-15.5) % Plt Count (150-450) k/uL Neutrophils # (1.3-7.7) k/uL Lymphocytes # (1.0-4.8) k/uL ABG pH 7.29 L (7.35-7.45) ABG pCO2 50 H (35-45) mmHg ABG Total CO2 26 H (19-24) mmol/L Potassium (3.5-5.1) mmol/L Chloride (98-107) mmol/L BUN (7-17) mg/dL Creatinine (0.52-1.04) mg/dL Glucose (74-99) mg/dL POC Glucose (mg/dL) 178 H 185 H (75-99) mg/dL Calcium (8.4-10.2) mg/dL AST (14-36) U/L Alkaline Phosphatase (38-126) U/L Total Protein (6.3-8.2) g/dL Albumin (3.5-5.0) g/dL 02/22/21 02/22/21 02/22/21 Range/Units 08:03 09:04 10:00 WBC (3.8-10.6) k/uL RBC (3.80-5.40) m/uL Hgb (11.4-16.0) gm/dL Hct (34.0-46.0) % RDW (11.5-15.5) % Plt Count (150-450) k/uL Neutrophils # (1.3-7.7) k/uL Lymphocytes # (1.0-4.8) k/uL ABG pH (7.35-7.45) ABG pCO2 (35-45) mmHg ABG Total CO2 (19-24) mmol/L Potassium (3.5-5.1) mmol/L Chloride (98-107) mmol/L BUN (7-17) mg/dL Creatinine (0.52-1.04) mg/dL Glucose (74-99) mg/dL POC Glucose (mg/dL) 181 H 180 H 163 H (75-99) mg/dL Calcium (8.4-10.2) mg/dL AST (14-36) U/L Alkaline Phosphatase (38-126) U/L Total Protein (6.3-8.2) g/dL Albumin (3.5-5.0) g/dL 02/22/21 02/22/2121 Range/Units 10:58 11:52 13:00 WBC (3.8-10.6) k/uL RBC (3.80-5.40) m/uL Hgb (11.4-16.0) gm/dL Hct (34.0-46.0) % RDW (11.5-15.5) % Plt Count (150-450) k/uL Neutrophils # (1.3-7.7) k/uL Lymphocytes # (1.0-4.8) k/uL ABG pH (7.35-7.45) ABG pCO2 (35-45) mmHg ABG Total CO2 (19-24) mmol/L Potassium (3.5-5.1) mmol/L Chloride (98-107) mmol/L BUN (7-17) mg/dL Creatinine (0.52-1.04) mg/dL Glucose (74-99) mg/dL POC Glucose (mg/dL) 161 H 172 H 158 H (75-99) mg/dL Calcium (8.4-10.2) mg/dL AST (14-36) U/L Alkaline Phosphatase (38-126) U/L Total Protein (6.3-8.2) g/dL Albumin (3.5-5.0) g/dL 02/22/21 02/22/21 02/22/21 Range/Units 14:08 15:01 16:17 WBC (3.8-10.6) k/uL RBC (3.80-5.40) m/uL Hgb (11.4-16.0) gm/dL Hct (34.0-46.0) % RDW (11.5-15.5) % Plt Count (150-450) k/uL Neutrophils # (1.3-7.7) k/uL Lymphocytes # (1.0-4.8) k/uL ABG pH (7.35-7.45) ABG pCO2 (35-45) mmHg ABG Total CO2 (19-24) mmol/L Potassium (3.5-5.1) mmol/L Chloride (98-107) mmol/L BUN (7-17) mg/dL Creatinine (0.52-1.04) mg/dL Glucose (74-99) mg/dL POC Glucose (mg/dL) 155 H 153 H 151 H (75-99) mg/dL Calcium (8.4-10.2) mg/dL AST (14-36) U/L Alkaline Phosphatase (38-126) U/L Total Protein (6.3-8.2) g/dL Albumin (3.5-5.0) g/dL 02/22/21 02/22/21 Range/Units 17:53 21:31 WBC (3.8-10.6) k/uL RBC (3.80-5.40) m/uL Hgb (11.4-16.0) gm/dL Hct (34.0-46.0) % RDW (11.5-15.5) % Plt Count (150-450) k/uL Neutrophils # (1.3-7.7) k/uL Lymphocytes # (1.0-4.8) k/uL ABG pH (7.35-7.45) ABG pCO2 (35-45) mmHg ABG Total CO2 (19-24) mmol/L Potassium (3.5-5.1) mmol/L Chloride (98-107) mmol/L BUN (7-17) mg/dL Creatinine (0.52-1.04) mg/dL Glucose (74-99) mg/dL POC Glucose (mg/dL) 164 H 165 H (75-99) mg/dL Calcium (8.4-10.2) mg/dL AST (14-36) U/L Alkaline Phosphatase (38-126) U/L Total Protein (6.3-8.2) g/dL Albumin (3.5-5.0) g/dL Microbiology - Last 24 Hours (Table) 02/20/21 09:01 Blood Culture Gram Stain - Preliminary Blood Blood Culture - Preliminary Presumptive Staph aureus 02/21/21 09:35 Blood Culture Gram Stain - Preliminary Blood Blood Culture - Preliminary Staphylococcus aureus 02/20/21 09:35 Blood Culture - Final Blood Assessment and Plan Assessment: Acute anteroseptal STEMI Cardiac arrest, status post ventricular fibrillation status post CPR and return of circulation Acute hypoxic respiratory failure needing intubation and mechanical ventilation Sepsis secondary to pneumonia with fever and leukocytosis, developing into septic shock secondary to MSSA in the sputum and blood Metabolic acidosis acute kidney injury with oliguria requiring hemodialysis unresponsiveness off sedation concerning for ischemic brain injury Possible pulmonary edema Leukocytosis, secondary to above Left fracture secondary to CPR Coagulopathy with INR 2.7 upon admission, resolved Hypertension Hypothyroidism Diabetes mellitus History of GERD History of coronary artery disease Morbidly obese. BMI 45.8 Plan: This is a 65 years old female who presents with STEMI and cardiac arrest status post CPR and intubation, underwent cardiac cath and PCI to LAD Continue with aspirin, brillinta Continue with Intubation and mechanical ventilation with pulmonary/critical care team consult with possible extubation. Pulmonary team Antibiotics were adjusted to cefepime. Nephrology consult. Continue with hemodialysis per her [employer] on the case Neurologist consulted. Infectious disease consult Labs and medication were reviewed.. Continue same treatment. Continue with symptomatic treatment. Resume home medication. Monitor lytes and vitals. DVT and GI prophylaxis. Further recommendations as per clinical course of the patient DVT prophylaxis: Aspirin and brillinta GI Prophylaxis: Pepcid Prognosis is guarded
[2021-02-22 22:20] LABS: Glucose,Whole Blood 171 mg/dL (75-99)
[2021-02-22 23:03] LABS: Glucose,Whole Blood 167 mg/dL (75-99)
[2021-02-23 00:28] LABS: Glucose,Whole Blood 149 mg/dL (75-99)
[2021-02-23 01:16] LABS: Glucose,Whole Blood 160 mg/dL (75-99)
[2021-02-23 02:21] LABS: Glucose,Whole Blood 156 mg/dL (75-99)
[2021-02-23 03:23] LABS: Glucose,Whole Blood 159 mg/dL (75-99)
[2021-02-23] MEDS: IPRATROPIUM-ALBUTEROL 3 ML NEB INHALATION SCH ×6 (03:40→23:40)
[2021-02-23 04:33] LABS: Glucose,Whole Blood 172 mg/dL (75-99)
[2021-02-23 05:00] LABS: Anisocytosis Slight; Basophils # (A) 0.1 k/uL (0-0.2); Basophils % (A) 0 %; Eosinophils # (A) 0.3 k/uL (0-0.7); Eosinophils % (A) 2 %; HCT 23.7 % (34.0-46.0); HGB 7.4 gm/dL (11.4-16.0); Hypochromasia Marked; Lymphocytes # (A) 1.2 k/uL (1.0-4.8); Lymphocytes % (A) 8 %; MCH 29.1 pg (25.0-35.0); MCHC 31.1 g/dL (31.0-37.0); MCV 93.5 fL (80.0-100.0); Mean Platelet Volume 9.7; Monocytes # (A) 0.5 k/uL (0-1.0); Monocytes % (A) 3 %; Neutrophils # (A) 12.6 k/uL (1.3-7.7); Neutrophils % (A) 85 %; Platelet Count 164 k/uL (150-450); RBC 2.54 m/uL (3.80-5.40); RDW 17.6 % (11.5-15.5); WBC 14.7 k/uL (3.8-10.6)
[2021-02-23 05:09] LABS: Glucose,Whole Blood 164 mg/dL (75-99)
[2021-02-23 05:20] LABS: Calcium 6.7 mg/dL (8.4-10.2); Potassium 4.8 mmol/L (3.5-5.1); Total Bilirubin 0.4 mg/dL (0.2-1.3); Total Protein 4.9 g/dL (6.3-8.2)
[2021-02-23 05:57] LABS: ABG Base Excess -3.2 mmol/L; ABG HCO3 23 mmol/L (21-25); ABG Oxygen Saturation 98.9 % (94-97); ABG PCO2 47 mmHg (35-45); ABG PO2 124 mmHg (83-108); ABG TCO2 25 mmol/L (19-24); Allen Test Performed? Yes
[2021-02-23 06:16] LABS: Glucose,Whole Blood 161 mg/dL (75-99)
[2021-02-23] MEDS: LEVOTHYROXINE 100 MCG TAB PO SCH (07:11)
[2021-02-23 07:20] LABS: Glucose,Whole Blood 161 mg/dL (75-99)
[2021-02-23] MEDS: SODIUM BICARBONATE TAB 650 MG TAB PO SCH (08:33)
[2021-02-23] MEDS: ASPIRIN 81 MG PO SCH (08:33)
[2021-02-23] MEDS: ENOXAPARIN 30 MG/0.3 ML SYRINGE SQ SCH (08:33)
[2021-02-23] MEDS: CHLORHEXIDINE GLUCONATE 15 ML CUP MUCOUS MEM SCH ×2 (08:33→21:10)
[2021-02-23] MEDS: PANTOPRAZOLE 40 MG/10 ML VIAL IVP SCH (08:33)
[2021-02-23] MEDS: TICAGRELOR 90 MG TAB PO SCH ×2 (08:33→21:10)
--- NOTE | 2021-02-23 08:40 | XR ---
EXAMINATION TYPE: XR chest 1V portable DATE OF EXAM: 02/23/2021 COMPARISON: 02/23/2020 HISTORY: Shortness of breath TECHNIQUE: Single frontal view of the chest is obtained. FINDINGS: ET and NG tube stable. There is diffuse bilateral infiltrate stable. Consolidative process left lower lobe. No pneumothorax. Central line stable. Small left pleural effusion. IMPRESSION: Bilateral infiltrate greater on the left pleural effusion stable. Correlate for CHF versus pneumonia
--- NOTE | 2021-02-23 08:40 | P.CONS ---
History of Present Illness - Reason for Consult Consult date: 02/22/21 bacteremia Requesting physician: Ana Tran - Chief Complaint unresponsive day of admission 02/13/21 - History of Present Illness History of present illness : Patient is 65-year-old female presented to hospital about 10 days ago was brought into the hospital on 13 February 2021 after the patient was found to be unresponsive at home apparently patient did eat denies cream sandwich and was complaining of blood sugar being elevated he was complaining of some indigestion patient went downstairs and also did hurt of blood patient was rushed to the ER in this patient noticed with acute MD with a cardiac arrest patient was resuscitated patient is status post cardiac cath with a totally occluded proximal LAD status post angioplasty since then the patient has been in the hospital patient has developed renal insufficiency/failure requiring dialysis catheter placement and has been dialyzed patient did have a white count of 20,000 on admission and has been elevated throughout her hospital stay patient did have a normal creatinine on admission with a creatinine is slowly coming up on the and is up to 3.74 today as mentioned earlier she has been dialyzed urine that has been significantly positive urine testing was +1 benzo and marijuana hepatitis panel was negative patient started spiking a fever on 16 February and has been spiking a fever on the in the as well as on the patient did have a blood culture done on the which came back positive for MSSA, sputum is also positive for MSSA patient has been bacteremic for the last 5 days and has been treated with vancomycin and currently on cefepime infectious disease was consulted today 02/22/2021 for further management of antibiotic therapy all of the information has been obtained from review the chart and talking to nursing staff the patient is currently unresponsive on the vent patient is requiring a low-dose pressor support no significant purulent secretions through the ET patient been tolerating her tube feeds and no diarrhea has been reported last chest x-ray done this morning blunting of the left hemidiaphragm bilateral airspace disease is present Review of system: Positive point has been mentioned in HPI complete review could not be obtained because of underlying mental status Past medical history : Reviewed, documented below Past surgical history : Reviewed, documented below Social history: Reviewed, documented below Medications: Reviewed, as documented below EXAMINATION: Vital sigans= Reviewed and documented below GENERAL DESCRIPTION: Middle-aged female intubated on the vent no tachypnea or accessory muscle of respiration use. HEENT: Shows Pallor , no scleral icterus. Oral mucous membrane is dry. NECK: Trachea central, no thyromegaly. LUNGS: Unlabored breathing. Decreased breath sound at the base sedated on the vent. No wheeze or crackle. HEART: S1, S2, regular rate and rhythm. ABDOMEN: Soft, no tenderness , guarding or rigidity EXTREMITIES: No edema of feet. SKIN: No rash, no masses palpable. NEUROLOGICAL: The patient is on the vent, unresponsive unable to complete neuro exam LABS AND RADIOLOGY: Reviewed results see below Assessment : Patient with an episode of sepsis in this patient who did have a fever elevated white count and tachycardia on 17 February 2021 in this patient presented to hospital on 13 February after the patient was found to be unresponsive at home secondary to an MD this patient status post cardiac cath and intervention to the LAD, patient with possible component of aspiration pneumonitis with secondary bacteremic would be the likely source as there is no other obvious focus of infection patient did get a dialysis catheter while the patient was bacteremic and could be a source of persistent bacteremia Plan: 1-blood cultures will be repeated daily to document clearance of her bacteremia 2-discontinue cefepime and start the patient cefazolin 2 g every 12 hours We will follow on clinical condition and cultures to further adjust medication if needed Thank you for this consultation we will follow the patient along with you Past Medical History Past Medical History: Coronary Artery Disease (CAD), Diabetes Mellitus, GERD/Reflux, Hypertension, Thyroid Disorder History of Any Multi-Drug Resistant Organisms: None Reported Past Surgical History: Cholecystectomy Past Anesthesia/Blood Transfusion Reactions: No Reported Reaction Past Psychological History: No Psychological Hx Reported Smoking Status: Never smoker Past Alcohol Use History: Unable to Obtain Past Drug Use History: Unable to Obtain Medications and Allergies Home Medications Medication Instructions Recorded Confirmed Type Aspirin 81 tab PO DAILY 02/18/14 02/13/21 History Atorvastatin [Lipitor] 40 mg PO DAILY 02/18/14 02/13/21 History Levothyroxine Sodium [Synthroid] 200 mcg PO [id number] 02/18/14 02/13/21 History Famotidine [Pepcid] 40 mg PO BID 02/13/21 02/13/21 History Insulin NPH Hum/Reg Insulin Hm 70 unit SQ DAILY 02/13/21 02/13/21 History [Relion Novolin 70-30 Flexpen] Insulin NPH Hum/Reg Insulin Hm 90 unit SQ HS 02/13/21 02/13/21 History [Relion Novolin 70-30 Flexpen] Levothyroxine Sodium [Synthroid] 125 mcg PO CHEW 02/13/21 02/13/21 History Metoprolol Succinate (ER) [Toprol 100 mg PO DAILY 02/13/21 02/13/21 History XL] cloNIDine HCL 0.1 mg PO BID 02/13/21 02/13/21 History Allergies Allergy/AdvReac Type Severity Reaction Status Date / Time Penicillins AdvReac Rash/Hives Verified 02/13/21 17:35 Physical Exam Vitals: Vital Signs Temp Pulse Pulse Resp BP Pulse Ox 02/22/21 11:59 112 H 02/22/21 11:50 111 H 02/22/21 11:00 109 H 25 H 100 02/22/21 10:30 110 H 34 H 100 02/22/21 10:00 112 H 21 99 02/22/21 09:30 106 H 27 H 100 02/22/21 09:08 99.3 F 106 H 28 H 100 02/22/21 08:40 106 H 02/22/21 08:30 105 H 02/22/21 06:00 111 H 28 H 116/55 100 02/22/21 05:00 105 H 28 H 117/43 99 02/22/21 04:00 99.2 F 105 H 23 105/43 99 02/22/21 03:00 105 H 28 H 99/44 98 02/22/21 02:00 105 H 30 H 121/45 99 02/22/21 01:00 107 H 28 H 135/48 98 02/22/21 00:35 95 02/22/21 00:22 104 H 02/22/21 00:00 99.6 F 105 H 28 H 109/73 99 02/21/21 23:00 28 H 119/51 99 02/21/21 22:00 105 H 28 H 125/58 97 02/21/21 21:30 105 H 28 H 97 02/21/21 21:00 105 H 28 H 98 02/21/21 20:30 104 H 28 H 98 02/21/21 20:00 99.6 F 105 H 28 H 97 02/21/21 19:30 101 H 28 H 98 02/21/21 19:28 101 H 02/21/21 19:12 106 H 02/21/21 19:00 106 H 24 96 02/21/21 18:30 105 H 27 H 97 02/21/21 18:00 101 H 28 H 97 02/21/21 17:30 107 H 28 H 94 L 02/21/21 16:00 98.8 F 104 H 28 H 97 02/21/21 15:38 28 H 02/21/21 15:30 108 H 29 H 97 02/21/21 15:26 117 H 02/21/21 15:12 115 H 02/21/21 15:00 114 H 30 H 98 02/21/21 14:30 116 H 28 H 98 02/21/21 14:00 109 H 30 H 98 02/21/21 13:30 112 H 28 H 98 Intake and Output 02/21/21 02/22/21 02/22/21 22:59 06:59 14:59 Intake Total 1345.687 0026.737 705.006 Output Total 5 15 0 Balance 9419.347 2735.737 705.006 Intake: IV 648 648 185 PRESSURE BAGS Sodium 48 48 30 chloride 0.9 Sodium Chloride 0.9% 1, 600 600 155 000 ml @ 20 mls/hr IV . Q24H [facility] Rx#:[id number] Intake, IV Titration 98.561 93.737 120.006 Amount Cefepime 1 gm In Sodium 50 Chloride 0.9% 50 ml @ 12. 5 mls/hr IVPB Q12HR [facility] Rx#:[id number] Insulin Regular 100 unit 29.533 61.400 40.208 In Sodium Chloride 0.9% 100 ml @ Per Protocol IV .Q0M [facility] Rx#:[id number] Norepinephrine 32 mg In 69.028 32.337 29.798 Sodium Chloride 0.9% 218 ml @ 0.05 MCG/KG/MIN 3. 202 mls/hr IV .Q24H [facility] Rx#:[id number] Tube Feeding 418 440 330 Other 360 360 70 Output: Urine 5 15 0 Other: Voiding Method Indwelling Catheter Indwelling Catheter Weight 142 kg ABP, PAP, CO, CI - Last 8 Hours Arterial Blood Pressure 133/42 Arterial Blood Pressure 102/42 Arterial Blood Pressure 164/69 Arterial Blood Pressure 121/55 Arterial Blood Pressure 120/50 Results CBC & Chem 7: 02/23/21 04:15 02/23/21 04:15 Labs: Abnormal Lab Results - Last 24 Hours (Table) 02/21/21 02/21/21 02/21/21 Range/Units 14:04 15:05 17:24 WBC (3.8-10.6) k/uL RBC (3.80-5.40) m/uL Hgb (11.4-16.0) gm/dL Hct (34.0-46.0) % RDW (11.5-15.5) % Plt Count (150-450) k/uL Neutrophils # (1.3-7.7) k/uL Lymphocytes # (1.0-4.8) k/uL ABG pH (7.35-7.45) ABG pCO2 (35-45) mmHg ABG Total CO2 (19-24) mmol/L Potassium (3.5-5.1) mmol/L Chloride (98-107) mmol/L BUN (7-17) mg/dL Creatinine (0.52-1.04) mg/dL Glucose (74-99) mg/dL POC Glucose (mg/dL) 169 H 183 H 182 H (75-99) mg/dL Calcium (8.4-10.2) mg/dL AST (14-36) U/L Alkaline Phosphatase (38-126) U/L Total Protein (6.3-8.2) g/dL Albumin (3.5-5.0) g/dL 02/21/21 02/21/21 02/21/21 Range/Units 18:14 18:50 20:05 WBC (3.8-10.6) k/uL RBC (3.80-5.40) m/uL Hgb (11.4-16.0) gm/dL Hct (34.0-46.0) % RDW (11.5-15.5) % Plt Count (150-450) k/uL Neutrophils # (1.3-7.7) k/uL Lymphocytes # (1.0-4.8) k/uL ABG pH (7.35-7.45) ABG pCO2 (35-45) mmHg ABG Total CO2 (19-24) mmol/L Potassium (3.5-5.1) mmol/L Chloride (98-107) mmol/L BUN (7-17) mg/dL Creatinine (0.52-1.04) mg/dL Glucose (74-99) mg/dL POC Glucose (mg/dL) 217 H 192 H 137 H (75-99) mg/dL Calcium (8.4-10.2) mg/dL AST (14-36) U/L Alkaline Phosphatase (38-126) U/L Total Protein (6.3-8.2) g/dL Albumin (3.5-5.0) g/dL 02/21/21 02/21/21 02/21/21 Range/Units 20:59 22:07 23:07 WBC (3.8-10.6) k/uL RBC (3.80-5.40) m/uL Hgb (11.4-16.0) gm/dL Hct (34.0-46.0) % RDW (11.5-15.5) % Plt Count (150-450) k/uL Neutrophils # (1.3-7.7) k/uL Lymphocytes # (1.0-4.8) k/uL ABG pH (7.35-7.45) ABG pCO2 (35-45) mmHg ABG Total CO2 (19-24) mmol/L Potassium (3.5-5.1) mmol/L Chloride (98-107) mmol/L BUN (7-17) mg/dL Creatinine (0.52-1.04) mg/dL Glucose (74-99) mg/dL POC Glucose (mg/dL) 215 H 225 H 202 H (75-99) mg/dL Calcium (8.4-10.2) mg/dL AST (14-36) U/L Alkaline Phosphatase (38-126) U/L Total Protein (6.3-8.2) g/dL Albumin (3.5-5.0) g/dL 02/22/21 02/22/21 02/22/21 Range/Units 00:05 01:12 02:01 WBC (3.8-10.6) k/uL RBC (3.80-5.40) m/uL Hgb (11.4-16.0) gm/dL Hct (34.0-46.0) % RDW (11.5-15.5) % Plt Count (150-450) k/uL Neutrophils # (1.3-7.7) k/uL Lymphocytes # (1.0-4.8) k/uL ABG pH (7.35-7.45) ABG pCO2 (35-45) mmHg ABG Total CO2 (19-24) mmol/L Potassium (3.5-5.1) mmol/L Chloride (98-107) mmol/L BUN (7-17) mg/dL Creatinine (0.52-1.04) mg/dL Glucose (74-99) mg/dL POC Glucose (mg/dL) 215 H 206 H 205 H (75-99) mg/dL Calcium (8.4-10.2) mg/dL AST (14-36) U/L Alkaline Phosphatase (38-126) U/L Total Protein (6.3-8.2) g/dL Albumin (3.5-5.0) g/dL 02/22/21 02/22/21 02/22/21 Range/Units 03:55 03:55 04:03 WBC 15.4 H (3.8-10.6) k/uL RBC 2.76 L (3.80-5.40) m/uL Hgb 8.0 L (11.4-16.0) gm/dL Hct 25.5 L (34.0-46.0) % RDW 16.9 H (11.5-15.5) % Plt Count 147 L (150-450) k/uL Neutrophils # 13.6 H (1.3-7.7) k/uL Lymphocytes # 0.9 L (1.0-4.8) k/uL ABG pH (7.35-7.45) ABG pCO2 (35-45) mmHg ABG Total CO2 (19-24) mmol/L Potassium 3.4 L (3.5-5.1) mmol/L Chloride 112 H (98-107) mmol/L BUN 56 H (7-17) mg/dL Creatinine 3.74 H (0.52-1.04) mg/dL Glucose 184 H (74-99) mg/dL POC Glucose (mg/dL) 195 H (75-99) mg/dL Calcium 6.7 L (8.4-10.2) mg/dL AST 132 H (14-36) U/L Alkaline Phosphatase 232 H (38-126) U/L Total Protein 4.7 L (6.3-8.2) g/dL Albumin 2.0 L (3.5-5.0) g/dL 02/22/21 02/22/21 02/22/21 Range/Units 05:06 06:10 06:15 WBC (3.8-10.6) k/uL RBC (3.80-5.40) m/uL Hgb (11.4-16.0) gm/dL Hct (34.0-46.0) % RDW (11.5-15.5) % Plt Count (150-450) k/uL Neutrophils # (1.3-7.7) k/uL Lymphocytes # (1.0-4.8) k/uL ABG pH 7.29 L (7.35-7.45) ABG pCO2 50 H (35-45) mmHg ABG Total CO2 26 H (19-24) mmol/L Potassium (3.5-5.1) mmol/L Chloride (98-107) mmol/L BUN (7-17) mg/dL Creatinine (0.52-1.04) mg/dL Glucose (74-99) mg/dL POC Glucose (mg/dL) 190 H 178 H (75-99) mg/dL Calcium (8.4-10.2) mg/dL AST (14-36) U/L Alkaline Phosphatase (38-126) U/L Total Protein (6.3-8.2) g/dL Albumin (3.5-5.0) g/dL 02/22/21 02/22/21 02/22/21 Range/Units 06:59 08:03 09:04 WBC (3.8-10.6) k/uL RBC (3.80-5.40) m/uL Hgb (11.4-16.0) gm/dL Hct (34.0-46.0) % RDW (11.5-15.5) % Plt Count (150-450) k/uL Neutrophils # (1.3-7.7) k/uL Lymphocytes # (1.0-4.8) k/uL ABG pH (7.35-7.45) ABG pCO2 (35-45) mmHg ABG Total CO2 (19-24) mmol/L Potassium (3.5-5.1) mmol/L Chloride (98-107) mmol/L BUN (7-17) mg/dL Creatinine (0.52-1.04) mg/dL Glucose (74-99) mg/dL POC Glucose (mg/dL) 185 H 181 H 180 H (75-99) mg/dL Calcium (8.4-10.2) mg/dL AST (14-36) U/L Alkaline Phosphatase (38-126) U/L Total Protein (6.3-8.2) g/dL Albumin (3.5-5.0) g/dL 02/22/21 02/22/21 02/22/21 Range/Units 10:00 10:58 11:52 WBC (3.8-10.6) k/uL RBC (3.80-5.40) m/uL Hgb (11.4-16.0) gm/dL Hct (34.0-46.0) % RDW (11.5-15.5) % Plt Count (150-450) k/uL Neutrophils # (1.3-7.7) k/uL Lymphocytes # (1.0-4.8) k/uL ABG pH (7.35-7.45) ABG pCO2 (35-45) mmHg ABG Total CO2 (19-24) mmol/L Potassium (3.5-5.1) mmol/L Chloride (98-107) mmol/L BUN (7-17) mg/dL Creatinine (0.52-1.04) mg/dL Glucose (74-99) mg/dL POC Glucose (mg/dL) 163 H 161 H 172 H (75-99) mg/dL Calcium (8.4-10.2) mg/dL AST (14-36) U/L Alkaline Phosphatase (38-126) U/L Total Protein (6.3-8.2) g/dL Albumin (3.5-5.0) g/dL 02/22/21 Range/Units 13:00 WBC (3.8-10.6) k/uL RBC (3.80-5.40) m/uL Hgb (11.4-16.0) gm/dL Hct (34.0-46.0) % RDW (11.5-15.5) % Plt Count (150-450) k/uL Neutrophils # (1.3-7.7) k/uL Lymphocytes # (1.0-4.8) k/uL ABG pH (7.35-7.45) ABG pCO2 (35-45) mmHg ABG Total CO2 (19-24) mmol/L Potassium (3.5-5.1) mmol/L Chloride (98-107) mmol/L BUN (7-17) mg/dL Creatinine (0.52-1.04) mg/dL Glucose (74-99) mg/dL POC Glucose (mg/dL) 158 H (75-99) mg/dL Calcium (8.4-10.2) mg/dL AST (14-36) U/L Alkaline Phosphatase (38-126) U/L Total Protein (6.3-8.2) g/dL Albumin (3.5-5.0) g/dL Microbiology - Last 24 Hours (Table) 02/21/21 09:35 Blood Culture Gram Stain - Preliminary Blood 02/20/21 09:35 Blood Culture - Final Blood 02/20/21 09:01 Blood Culture Gram Stain - Preliminary Blood
[2021-02-23 08:46] LABS: Glucose,Whole Blood 152 mg/dL (75-99)
[2021-02-23 10:26] LABS: Glucose,Whole Blood 139 mg/dL (75-99)
[2021-02-23] MEDS: INSULIN REGULAR 100 UNIT in SODIUM CHLORIDE 0.9% 100 ML IV SCH (11:24)
--- NOTE | 2021-02-23 11:30 | P.PN ---
Subjective Progress Note Date: 02/23/21 Follow-up for acute kidney injury on dialysis. Levo fed and high vent settings Objective - Vital Signs Vital signs: Vital Signs Temp 98.8 F 02/23/21 08:30 Pulse 105 H 02/23/21 11:00 Resp 33 H 02/23/21 11:00 BP 119/52 02/23/21 08:00 Pulse Ox 99 02/23/21 11:00 Intake & Output 02/22/21 02/23/21 02/23/21 18:59 06:59 18:59 Intake Total 6659.297 3345.272 573.792 Output Total 15 28 4 Balance 2022.478 7412.272 569.792 Weight 142 kg 149.9 kg Intake: IV 347 362.0 118 Cefepime 1 gm In Sodium 50.0 Chloride 0.9% 50 ml @ 12. 5 mls/hr IVPB Q12HR [facility] Rx#:[id number] PRESSURE BAGS Sodium 72 72 18 chloride 0.9 Sodium Chloride 0.9% 1, 275 240 100 000 ml @ 20 mls/hr IV . Q24H [facility] Rx#:[id number] Intake, IV Titration 166.335 77.272 35.792 Amount Cefepime 1 gm In Sodium 50 Chloride 0.9% 50 ml @ 12. 5 mls/hr IVPB Q12HR [facility] Rx#:[id number] Insulin Regular 100 unit 66.791 53.983 35.792 In Sodium Chloride 0.9% 100 ml @ Per Protocol IV .Q0M [facility] Rx#:[id number] Norepinephrine 32 mg In 49.544 23.289 Sodium Chloride 0.9% 218 ml @ 0.05 MCG/KG/MIN 3. 202 mls/hr IV .Q24H [facility] Rx#:[id number] Tube Feeding 770 770 330 Lipid 20 PRESSURE BAGS Sodium 20 chloride 0.9 Other 130 90 90 Output: Urine 15 28 4 Other: Voiding Method Indwelling Catheter Indwelling Catheter ABP, PAP, CO, CI - Last Documented Arterial Blood Pressure 122/57 - Exam No acute distress Intubated on ventilator Edema - Labs CBC & Chem 7: 02/23/21 04:15 02/23/21 04:15 Labs: Abnormal Lab Results - Last 24 Hours (Table) 02/22/21 02/22/21 02/22/21 Range/Units 11:52 13:00 14:08 WBC (3.8-10.6) k/uL RBC (3.80-5.40) m/uL Hgb (11.4-16.0) gm/dL Hct (34.0-46.0) % RDW (11.5-15.5) % Neutrophils # (1.3-7.7) k/uL ABG pH (7.35-7.45) ABG pCO2 (35-45) mmHg ABG pO2 (83-108) mmHg ABG Total CO2 (19-24) mmol/L ABG O2 Saturation (94-97) % Chloride (98-107) mmol/L Carbon Dioxide (22-30) mmol/L BUN (7-17) mg/dL Creatinine (0.52-1.04) mg/dL Glucose (74-99) mg/dL POC Glucose (mg/dL) 172 H 158 H 155 H (75-99) mg/dL Calcium (8.4-10.2) mg/dL AST (14-36) U/L Alkaline Phosphatase (38-126) U/L Total Protein (6.3-8.2) g/dL Albumin (3.5-5.0) g/dL 02/22/21 02/22/21 02/22/21 Range/Units 15:01 16:17 17:53 WBC (3.8-10.6) k/uL RBC (3.80-5.40) m/uL Hgb (11.4-16.0) gm/dL Hct (34.0-46.0) % RDW (11.5-15.5) % Neutrophils # (1.3-7.7) k/uL ABG pH (7.35-7.45) ABG pCO2 (35-45) mmHg ABG pO2 (83-108) mmHg ABG Total CO2 (19-24) mmol/L ABG O2 Saturation (94-97) % Chloride (98-107) mmol/L Carbon Dioxide (22-30) mmol/L BUN (7-17) mg/dL Creatinine (0.52-1.04) mg/dL Glucose (74-99) mg/dL POC Glucose (mg/dL) 153 H 151 H 164 H (75-99) mg/dL Calcium (8.4-10.2) mg/dL AST (14-36) U/L Alkaline Phosphatase (38-126) U/L Total Protein (6.3-8.2) g/dL Albumin (3.5-5.0) g/dL 02/22/21 02/22/21 02/22/21 Range/Units 21:31 22:18 23:00 WBC (3.8-10.6) k/uL RBC (3.80-5.40) m/uL Hgb (11.4-16.0) gm/dL Hct (34.0-46.0) % RDW (11.5-15.5) % Neutrophils # (1.3-7.7) k/uL ABG pH (7.35-7.45) ABG pCO2 (35-45) mmHg ABG pO2 (83-108) mmHg ABG Total CO2 (19-24) mmol/L ABG O2 Saturation (94-97) % Chloride (98-107) mmol/L Carbon Dioxide (22-30) mmol/L BUN (7-17) mg/dL Creatinine (0.52-1.04) mg/dL Glucose (74-99) mg/dL POC Glucose (mg/dL) 165 H 171 H 167 H (75-99) mg/dL Calcium (8.4-10.2) mg/dL AST (14-36) U/L Alkaline Phosphatase (38-126) U/L Total Protein (6.3-8.2) g/dL Albumin (3.5-5.0) g/dL 02/23/21 02/23/21 02/23/21 Range/Units 00:26 01:13 02:19 WBC (3.8-10.6) k/uL RBC (3.80-5.40) m/uL Hgb (11.4-16.0) gm/dL Hct (34.0-46.0) % RDW (11.5-15.5) % Neutrophils # (1.3-7.7) k/uL ABG pH (7.35-7.45) ABG pCO2 (35-45) mmHg ABG pO2 (83-108) mmHg ABG Total CO2 (19-24) mmol/L ABG O2 Saturation (94-97) % Chloride (98-107) mmol/L Carbon Dioxide (22-30) mmol/L BUN (7-17) mg/dL Creatinine (0.52-1.04) mg/dL Glucose (74-99) mg/dL POC Glucose (mg/dL) 149 H 160 H 156 H (75-99) mg/dL Calcium (8.4-10.2) mg/dL AST (14-36) U/L Alkaline Phosphatase (38-126) U/L Total Protein (6.3-8.2) g/dL Albumin (3.5-5.0) g/dL 02/23/21 02/23/21 02/23/21 Range/Units 03:22 04:15 04:15 WBC 14.7 H (3.8-10.6) k/uL RBC 2.54 L (3.80-5.40) m/uL Hgb 7.4 L (11.4-16.0) gm/dL Hct 23.7 L (34.0-46.0) % RDW 17.6 H (11.5-15.5) % Neutrophils # 12.6 H (1.3-7.7) k/uL ABG pH (7.35-7.45) ABG pCO2 (35-45) mmHg ABG pO2 (83-108) mmHg ABG Total CO2 (19-24) mmol/L ABG O2 Saturation (94-97) % Chloride 110 H (98-107) mmol/L Carbon Dioxide 21 L (22-30) mmol/L BUN 82 H (7-17) mg/dL Creatinine 4.74 H (0.52-1.04) mg/dL Glucose 155 H (74-99) mg/dL POC Glucose (mg/dL) 159 H (75-99) mg/dL Calcium 6.7 L (8.4-10.2) mg/dL AST 142 H (14-36) U/L Alkaline Phosphatase 237 H (38-126) U/L Total Protein 4.9 L (6.3-8.2) g/dL Albumin 2.0 L (3.5-5.0) g/dL 02/23/21 02/23/21 02/23/21 Range/Units 04:28 05:08 05:50 WBC (3.8-10.6) k/uL RBC (3.80-5.40) m/uL Hgb (11.4-16.0) gm/dL Hct (34.0-46.0) % RDW (11.5-15.5) % Neutrophils # (1.3-7.7) k/uL ABG pH 7.30 L (7.35-7.45) ABG pCO2 47 H (35-45) mmHg ABG pO2 124 H (83-108) mmHg ABG Total CO2 25 H (19-24) mmol/L ABG O2 Saturation 98.9 H (94-97) % Chloride (98-107) mmol/L Carbon Dioxide (22-30) mmol/L BUN (7-17) mg/dL Creatinine (0.52-1.04) mg/dL Glucose (74-99) mg/dL POC Glucose (mg/dL) 172 H 164 H (75-99) mg/dL Calcium (8.4-10.2) mg/dL AST (14-36) U/L Alkaline Phosphatase (38-126) U/L Total Protein (6.3-8.2) g/dL Albumin (3.5-5.0) g/dL 02/23/21 02/23/21 02/23/21 Range/Units 06:14 07:18 08:45 WBC (3.8-10.6) k/uL RBC (3.80-5.40) m/uL Hgb (11.4-16.0) gm/dL Hct (34.0-46.0) % RDW (11.5-15.5) % Neutrophils # (1.3-7.7) k/uL ABG pH (7.35-7.45) ABG pCO2 (35-45) mmHg ABG pO2 (83-108) mmHg ABG Total CO2 (19-24) mmol/L ABG O2 Saturation (94-97) % Chloride (98-107) mmol/L Carbon Dioxide (22-30) mmol/L BUN (7-17) mg/dL Creatinine (0.52-1.04) mg/dL Glucose (74-99) mg/dL POC Glucose (mg/dL) 161 H 161 H 152 H (75-99) mg/dL Calcium (8.4-10.2) mg/dL AST (14-36) U/L Alkaline Phosphatase (38-126) U/L Total Protein (6.3-8.2) g/dL Albumin (3.5-5.0) g/dL 02/23/21 Range/Units 10:25 WBC (3.8-10.6) k/uL RBC (3.80-5.40) m/uL Hgb (11.4-16.0) gm/dL Hct (34.0-46.0) % RDW (11.5-15.5) % Neutrophils # (1.3-7.7) k/uL ABG pH (7.35-7.45) ABG pCO2 (35-45) mmHg ABG pO2 (83-108) mmHg ABG Total CO2 (19-24) mmol/L ABG O2 Saturation (94-97) % Chloride (98-107) mmol/L Carbon Dioxide (22-30) mmol/L BUN (7-17) mg/dL Creatinine (0.52-1.04) mg/dL Glucose (74-99) mg/dL POC Glucose (mg/dL) 139 H (75-99) mg/dL Calcium (8.4-10.2) mg/dL AST (14-36) U/L Alkaline Phosphatase (38-126) U/L Total Protein (6.3-8.2) g/dL Albumin (3.5-5.0) g/dL Microbiology - Last 24 Hours (Table) 02/20/21 09:01 Blood Culture Gram Stain - Preliminary Blood Blood Culture - Preliminary Presumptive Staph aureus 02/21/21 09:35 Blood Culture Gram Stain - Preliminary Blood Blood Culture - Preliminary Staphylococcus aureus Assessment and Plan Assessment: #1 oliguric acute kidney injury secondary to hemodynamic from cardiopulmonary arrest and septic ATN. #2 ventilator-dependent respiratory failure #3 volume overload #4 cardiogenic/septic shock #5 metabolic acidosis Plan: #1 on daily hemodialysis for volume. Increase ultrafiltration to 2.5 L today, p josefina again tomorrow for 3 L. #2 ICU care
[2021-02-23 11:43] LABS: Glucose,Whole Blood 129 mg/dL (75-99)
[2021-02-23] MEDS ORDERED: VANCOMYCIN 2,500 MG in SODIUM CHLORIDE 0.9% 500 ML 500 ML IVPB ONE (12:00)
[2021-02-23 13:00] LABS: Glucose,Whole Blood 127 mg/dL (75-99)
--- NOTE | 2021-02-23 13:51 | P.PN ---
Subjective Progress Note Date: 02/23/21 Principal diagnosis: He could myocardial infarction, cardiac arrest, septic shock and also encephalopathy This is 64-year-old female was admitted on the with history of cardiac arrest at home with prolonged resuscitation effort had stent placement of the LAD. Patient however remained unresponsive and seemed to have encephalopathy probably hypoxic patient's course is completed by septic shock. Patient also developed acute renal failure on dialysis. Patient intubated and unresponsive. Patient is also on vasopressors. She is getting beta blockers, aspirin and Benadryl enter. Prognosis seemed to be extremely poor. Objective - Vital Signs Vital signs: Vital Signs Temp 98 F 02/23/21 13:15 Pulse 107 H 02/23/21 13:30 Resp 32 H 02/23/21 13:30 BP 106/48 02/23/21 13:15 Pulse Ox 99 02/23/21 13:30 Intake & Output 02/22/21 02/23/21 02/23/21 18:59 06:59 18:59 Intake Total 0724.926 6281.272 816.292 Output Total 15 2003 Balance 0594.017 6947.272 -1187.708 Weight 142 kg 149.9 kg Intake: IV 347 362.0 164 Cefepime 1 gm In Sodium 50.0 Chloride 0.9% 50 ml @ 12. 5 mls/hr IVPB Q12HR [facility] Rx#:[id number] PRESSURE BAGS Sodium 72 72 24 chloride 0.9 Sodium Chloride 0.9% 1, 275 240 140 000 ml @ 20 mls/hr IV . Q24H [facility] Rx#:[id number] Intake, IV Titration 166.335 77.272 37.292 Amount Cefepime 1 gm In Sodium 50 Chloride 0.9% 50 ml @ 12. 5 mls/hr IVPB Q12HR [facility] Rx#:[id number] Insulin Regular 100 unit 66.791 53.983 37.292 In Sodium Chloride 0.9% 100 ml @ Per Protocol IV .Q0M [facility] Rx#:[id number] Norepinephrine 32 mg In 49.544 23.289 Sodium Chloride 0.9% 218 ml @ 0.05 MCG/KG/MIN 3. 202 mls/hr IV .Q24H [facility] Rx#:[id number] Tube Feeding 770 770 495 Lipid 20 PRESSURE BAGS Sodium 20 chloride 0.9 Other 130 90 120 Output: Urine 15 28 Hemodialysis 1999 Other: Voiding Method Indwelling Catheter Indwelling Catheter ABP, PAP, CO, CI - Last Documented Arterial Blood Pressure 115/43 - Exam GENERAL EXAM: Patient is to be intubated and sedated HEENT: Normocephalic. NECK: No masses, no nuchal rigidity. CHEST: No chest wall deformity. LUNGS: There are distress sounds HEART: S1 and S2 normal . Stent heart sounds ABDOMEN: No hepatosplenomegaly, normal bowel sounds, no guarding or rigidity. SKIN: No rashes CENTRAL NERVOUS SYSTEM: Sedated and unresponsive EXTREMITIES: Significant edema - Labs CBC & Chem 7: 02/23/21 04:15 02/23/21 04:15 Labs: Abnormal Lab Results - Last 24 Hours (Table) 02/22/21 02/22/21 02/22/21 Range/Units 14:08 15:01 16:17 WBC (3.8-10.6) k/uL RBC (3.80-5.40) m/uL Hgb (11.4-16.0) gm/dL Hct (34.0-46.0) % RDW (11.5-15.5) % Neutrophils # (1.3-7.7) k/uL ABG pH (7.35-7.45) ABG pCO2 (35-45) mmHg ABG pO2 (83-108) mmHg ABG Total CO2 (19-24) mmol/L ABG O2 Saturation (94-97) % Chloride (98-107) mmol/L Carbon Dioxide (22-30) mmol/L BUN (7-17) mg/dL Creatinine (0.52-1.04) mg/dL Glucose (74-99) mg/dL POC Glucose (mg/dL) 155 H 153 H 151 H (75-99) mg/dL Calcium (8.4-10.2) mg/dL AST (14-36) U/L Alkaline Phosphatase (38-126) U/L Total Protein (6.3-8.2) g/dL Albumin (3.5-5.0) g/dL 02/22/21 02/22/21 02/22/21 Range/Units 17:53 21:31 22:18 WBC (3.8-10.6) k/uL RBC (3.80-5.40) m/uL Hgb (11.4-16.0) gm/dL Hct (34.0-46.0) % RDW (11.5-15.5) % Neutrophils # (1.3-7.7) k/uL ABG pH (7.35-7.45) ABG pCO2 (35-45) mmHg ABG pO2 (83-108) mmHg ABG Total CO2 (19-24) mmol/L ABG O2 Saturation (94-97) % Chloride (98-107) mmol/L Carbon Dioxide (22-30) mmol/L BUN (7-17) mg/dL Creatinine (0.52-1.04) mg/dL Glucose (74-99) mg/dL POC Glucose (mg/dL) 164 H 165 H 171 H (75-99) mg/dL Calcium (8.4-10.2) mg/dL AST (14-36) U/L Alkaline Phosphatase (38-126) U/L Total Protein (6.3-8.2) g/dL Albumin (3.5-5.0) g/dL 02/22/21 02/23/21 02/23/21 Range/Units 23:00 00:26 01:13 WBC (3.8-10.6) k/uL RBC (3.80-5.40) m/uL Hgb (11.4-16.0) gm/dL Hct (34.0-46.0) % RDW (11.5-15.5) % Neutrophils # (1.3-7.7) k/uL ABG pH (7.35-7.45) ABG pCO2 (35-45) mmHg ABG pO2 (83-108) mmHg ABG Total CO2 (19-24) mmol/L ABG O2 Saturation (94-97) % Chloride (98-107) mmol/L Carbon Dioxide (22-30) mmol/L BUN (7-17) mg/dL Creatinine (0.52-1.04) mg/dL Glucose (74-99) mg/dL POC Glucose (mg/dL) 167 H 149 H 160 H (75-99) mg/dL Calcium (8.4-10.2) mg/dL AST (14-36) U/L Alkaline Phosphatase (38-126) U/L Total Protein (6.3-8.2) g/dL Albumin (3.5-5.0) g/dL 02/23/21 02/23/21 02/23/21 Range/Units 02:19 03:22 04:15 WBC 14.7 H (3.8-10.6) k/uL RBC 2.54 L (3.80-5.40) m/uL Hgb 7.4 L (11.4-16.0) gm/dL Hct 23.7 L (34.0-46.0) % RDW 17.6 H (11.5-15.5) % Neutrophils # 12.6 H (1.3-7.7) k/uL ABG pH (7.35-7.45) ABG pCO2 (35-45) mmHg ABG pO2 (83-108) mmHg ABG Total CO2 (19-24) mmol/L ABG O2 Saturation (94-97) % Chloride (98-107) mmol/L Carbon Dioxide (22-30) mmol/L BUN (7-17) mg/dL Creatinine (0.52-1.04) mg/dL Glucose (74-99) mg/dL POC Glucose (mg/dL) 156 H 159 H (75-99) mg/dL Calcium (8.4-10.2) mg/dL AST (14-36) U/L Alkaline Phosphatase (38-126) U/L Total Protein (6.3-8.2) g/dL Albumin (3.5-5.0) g/dL 02/23/21 02/23/21 02/23/21 Range/Units 04:15 04:28 05:08 WBC (3.8-10.6) k/uL RBC (3.80-5.40) m/uL Hgb (11.4-16.0) gm/dL Hct (34.0-46.0) % RDW (11.5-15.5) % Neutrophils # (1.3-7.7) k/uL ABG pH (7.35-7.45) ABG pCO2 (35-45) mmHg ABG pO2 (83-108) mmHg ABG Total CO2 (19-24) mmol/L ABG O2 Saturation (94-97) % Chloride 110 H (98-107) mmol/L Carbon Dioxide 21 L (22-30) mmol/L BUN 82 H (7-17) mg/dL Creatinine 4.74 H (0.52-1.04) mg/dL Glucose 155 H (74-99) mg/dL POC Glucose (mg/dL) 172 H 164 H (75-99) mg/dL Calcium 6.7 L (8.4-10.2) mg/dL AST 142 H (14-36) U/L Alkaline Phosphatase 237 H (38-126) U/L Total Protein 4.9 L (6.3-8.2) g/dL Albumin 2.0 L (3.5-5.0) g/dL 02/23/21 02/23/21 02/23/21 Range/Units 05:50 06:14 07:18 WBC (3.8-10.6) k/uL RBC (3.80-5.40) m/uL Hgb (11.4-16.0) gm/dL Hct (34.0-46.0) % RDW (11.5-15.5) % Neutrophils # (1.3-7.7) k/uL ABG pH 7.30 L (7.35-7.45) ABG pCO2 47 H (35-45) mmHg ABG pO2 124 H (83-108) mmHg ABG Total CO2 25 H (19-24) mmol/L ABG O2 Saturation 98.9 H (94-97) % Chloride (98-107) mmol/L Carbon Dioxide (22-30) mmol/L BUN (7-17) mg/dL Creatinine (0.52-1.04) mg/dL Glucose (74-99) mg/dL POC Glucose (mg/dL) 161 H 161 H (75-99) mg/dL Calcium (8.4-10.2) mg/dL AST (14-36) U/L Alkaline Phosphatase (38-126) U/L Total Protein (6.3-8.2) g/dL Albumin (3.5-5.0) g/dL 02/23/21 02/23/21 02/23/21 Range/Units 08:45 10:25 11:41 WBC (3.8-10.6) k/uL RBC (3.80-5.40) m/uL Hgb (11.4-16.0) gm/dL Hct (34.0-46.0) % RDW (11.5-15.5) % Neutrophils # (1.3-7.7) k/uL ABG pH (7.35-7.45) ABG pCO2 (35-45) mmHg ABG pO2 (83-108) mmHg ABG Total CO2 (19-24) mmol/L ABG O2 Saturation (94-97) % Chloride (98-107) mmol/L Carbon Dioxide (22-30) mmol/L BUN (7-17) mg/dL Creatinine (0.52-1.04) mg/dL Glucose (74-99) mg/dL POC Glucose (mg/dL) 152 H 139 H 129 H (75-99) mg/dL Calcium (8.4-10.2) mg/dL AST (14-36) U/L Alkaline Phosphatase (38-126) U/L Total Protein (6.3-8.2) g/dL Albumin (3.5-5.0) g/dL 02/23/21 Range/Units 12:59 WBC (3.8-10.6) k/uL RBC (3.80-5.40) m/uL Hgb (11.4-16.0) gm/dL Hct (34.0-46.0) % RDW (11.5-15.5) % Neutrophils # (1.3-7.7) k/uL ABG pH (7.35-7.45) ABG pCO2 (35-45) mmHg ABG pO2 (83-108) mmHg ABG Total CO2 (19-24) mmol/L ABG O2 Saturation (94-97) % Chloride (98-107) mmol/L Carbon Dioxide (22-30) mmol/L BUN (7-17) mg/dL Creatinine (0.52-1.04) mg/dL Glucose (74-99) mg/dL POC Glucose (mg/dL) 127 H (75-99) mg/dL Calcium (8.4-10.2) mg/dL AST (14-36) U/L Alkaline Phosphatase (38-126) U/L Total Protein (6.3-8.2) g/dL Albumin (3.5-5.0) g/dL Microbiology - Last 24 Hours (Table) 02/20/21 09:01 Blood Culture Gram Stain - Preliminary Blood Blood Culture - Preliminary Presumptive Staph aureus 02/21/21 09:35 Blood Culture Gram Stain - Preliminary Blood Blood Culture - Preliminary Staphylococcus aureus Assessment and Plan (1) Septic shock Current Visit: Yes Status: Acute Code(s): A41.9 - SEPSIS, UNSPECIFIED ORGANISM; R65.21 - SEVERE SEPSIS WITH SEPTIC SHOCK SNOMED Code(s): 71129785 (2) Acute myocardial infarction Current Visit: Yes Status: Acute Code(s): I21.9 - ACUTE MYOCARDIAL INFARCTION, UNSPECIFIED SNOMED Code(s): 38804907 (3) Cardiac arrest Current Visit: Yes Status: Acute Code(s): I46.9 - CARDIAC ARREST, CAUSE UNSPECIFIED SNOMED Code(s): 593403300 (4) Encephalopathy Current Visit: Yes Status: Acute Code(s): G93.40 - ENCEPHALOPATHY, UNSPECIFIED SNOMED Code(s): 38445041 (5) Acute renal failure Current Visit: Yes Status: Acute Code(s): N17.9 - ACUTE KIDNEY FAILURE, UNSPECIFIED SNOMED Code(s): 62886968 Plan: Continue current measures, including respiratory support dialysis and antibiotics along with a cardiac medication. Her prognosis appears to be relatively poor. We'll continue to follow her as needed
[2021-02-23 14:29] LABS: Glucose,Whole Blood 176 mg/dL (75-99)
--- NOTE | 2021-02-23 14:57 | P.PN ---
Subjective Progress Note Date: 02/23/21 Principal diagnosis: Acute hypoxic respiratory failure secondary to auto possible cardiac arrest with prolonged down time, 34 minutes before return of spontaneous circulation. On 02/22/2022 patient seen in follow-up in intensive care unit. She remains unresponsive, she has been off sedation since 02/20/2021. She has not received any Diprivan or narcotics. She remains intubated on assist control mode of ventilation with a rate of 28, tidal volume is 400, FiO2 of 50% and PEEP of 15. This morning's blood gas shows pO2 of 85, pCO2 50, and pH of 7.29 and this was done on the above-mentioned vent settings. She is on small amount of norepinephrine, 11 mics per minute, vasopressin has been discontinued, she is on 0.9 normal saline at a rate of 20 ML per hour, no other drips. She is in sinus mechanism slightly tachycardic with a rate of 105. She has not had recurrence of A. fib. She is on aspirin and Brilinta for a recent history of stenting of the LAD 2. No other anti-coagulants at this time. Her chest x-ray today shows diffuse bilateral infiltrates that are stable in appearance, and consolidative process in the left lower lobe with a small left pleural effusion, patient was started on hemodialysis and she had hemodialysis treatments for the last 2 days. On 02/21/2021 she had 1 L of fluid removed with hemodialysis, and just ultrafiltration on 02/20/2021 with no fluid removed. Urine output is minimal in the order of 5-10 mL per hour, patient is an significantly positive net fluid balance since admission, she has significant third spacing and edema involving her upper and lower extremities and trunk. She is at least 10 kg positive since admission. Low-grade fevers overnight. T-max is 99.6F. Patient remains on cefepime for antibiotic coverage, her blood cultures from 02/17/2021 showed MSSA, follow-up blood cultures sent on 02/20/2021 and 02/21/2021 are showing gram-positive cocci in groups. Final culture is pending. Today's labs show im provement in white count which is down to 15.4, hemoglobin is 8.0, platelet count is 147, sodium is 144, potassium is 3.4, chloride is 112, B1 is 56, and creatinine is 3.74, renal profile is relatively stable, her AST is 132, slightly increased, ALT is within normal limits at 25, alkaline phosphatase is 232, her last pro-calcitonin from yesterday 02/21/2021 was still significantly elevated at 16.9. Patient did receive a dose of vancomycin a few days back, her last Vanco troph was on 02/19/2021 and was at 19.0. Neurologically patient doesn't attempt to open eyes, does not follow any purposeful command, she does have a positive corneal reflex, positive cough, negative gag, negative Babinski. CT of the brain from yesterday on 02/21/2021 showed no acute intracranial hemorrhage or midline shift, mild diffuse age-related cerebral atrophy and chronic small vessel ischemic change without significant interval change. There was worsening paranasal sinus findings possibly related to intubation versus sinusitis. Neurology is following. Reevaluated today on 02/23/21, patient remains intubated and mechanically ventilated, she is on assist control rate of 28 tidal volume 400 FiO2 50% PEEP o f 15. Remains on norepinephrine at 0.03 mcg/kg/m on insulin for 5.5 units per hour she is off sedation completely, she is not requiring any narcotics or sedatives. She is not on any paralytics. ABG showed a pO2 of 124 pCO2 47 pH of 7.30. Patient is undergoing hemodialysis during my evaluation. Chest x-ray showed bilateral infiltrates greater on the left compared to the right, I believe the findings are mostly findings of CHF not true pneumonia although the patient may have aspirated during the code. WBC count is 14.7, hemoglobin is 7.4 electrolytes are normal BUN is 82 creatinine 4.74. Patient is being followed by many consultants including cardiology and nephrology and neurology, and at this point I believe her condition is extremely poor, and I doubt if we are going to notice any neurological recovery. May have to approach family somewhat along the line regarding CODE STATUS and comfort care measures. Objective - Vital Signs Vital signs: Vital Signs Temp 98 F 02/23/21 13:15 Pulse 107 H 02/23/21 13:30 Resp 32 H 02/23/21 13:30 BP 106/48 02/23/21 13:15 Pulse Ox 99 02/23/21 13:30 Intake & Output 02/22/21 02/23/21 02/23/21 18:59 06:59 18:59 Intake Total 4029.896 9209.272 816.292 Output Total 15 2003 Balance 9754.159 5422.272 -1187.708 Weight 142 kg 149.9 kg Intake: IV 347 362.0 164 Cefepime 1 gm In Sodium 50.0 Chloride 0.9% 50 ml @ 12. 5 mls/hr IVPB Q12HR [facility] Rx#:[id number] PRESSURE BAGS Sodium 72 72 24 chloride 0.9 Sodium Chloride 0.9% 1, 275 240 140 000 ml @ 20 mls/hr IV . Q24H [facility] Rx#:[id number] Intake, IV Titration 166.335 77.272 37.292 Amount Cefepime 1 gm In Sodium 50 Chloride 0.9% 50 ml @ 12. 5 mls/hr IVPB Q12HR [facility] Rx#:[id number] Insulin Regular 100 unit 66.791 53.983 37.292 In Sodium Chloride 0.9% 100 ml @ Per Protocol IV .Q0M [facility] Rx#:[id number] Norepinephrine 32 mg In 49.544 23.289 Sodium Chloride 0.9% 218 ml @ 0.05 MCG/KG/MIN 3. 202 mls/hr IV .Q24H [facility] Rx#:[id number] Tube Feeding 770 770 495 Lipid 20 PRESSURE BAGS Sodium 20 chloride 0.9 Other 130 90 120 Output: Urine 15 28 Hemodialysis 1999 Other: Voiding Method Indwelling Catheter Indwelling Catheter ABP, PAP, CO, CI - Last Documented Arterial Blood Pressure 115/43 - Exam GENERAL EXAM: Revealed 64-year-old female obese, unresponsive to any stimuli, intubated and mechanically ventilated. HEAD: Normocephalic/atraumatic. EYES: Normal reaction of pupils, equal size. Conjunctiva pink, sclera white. NOSE: Clear with pink turbinates. THROAT: No erythema or exudates. NECK: No masses, no JVD, no thyroid enlargement, no adenopathy. CHEST: No chest wall deformity. Symmetrical expansion. LUNGS: Crackles at the bases no rhonchi and no wheezes. CVS: Regular rate and rhythm, normal S1 and S2, no gallops, no murmurs, no rubs ABDOMEN: Obese soft nontender no megaly no rebound. EXTREMITIES: 2+ bipedal edema. SKIN: No rashes CENTRAL NERVOUS SYSTEM: Unresponsive, to any stimuli, patient is comatose. - Labs CBC & Chem 7: 02/23/21 04:15 02/23/21 04:15 Labs: Abnormal Lab Results - Last 24 Hours (Table) 02/22/21 02/22/21 02/22/21 Range/Units 15:01 16:17 17:53 WBC (3.8-10.6) k/uL RBC (3.80-5.40) m/uL Hgb (11.4-16.0) gm/dL Hct (34.0-46.0) % RDW (11.5-15.5) % Neutrophils # (1.3-7.7) k/uL ABG pH (7.35-7.45) ABG pCO2 (35-45) mmHg ABG pO2 (83-108) mmHg ABG Total CO2 (19-24) mmol/L ABG O2 Saturation (94-97) % Chloride (98-107) mmol/L Carbon Dioxide (22-30) mmol/L BUN (7-17) mg/dL Creatinine (0.52-1.04) mg/dL Glucose (74-99) mg/dL POC Glucose (mg/dL) 153 H 151 H 164 H (75-99) mg/dL Calcium (8.4-10.2) mg/dL AST (14-36) U/L Alkaline Phosphatase (38-126) U/L Total Protein (6.3-8.2) g/dL Albumin (3.5-5.0) g/dL 02/22/21 02/22/21 02/22/21 Range/Units 21:31 22:18 23:00 WBC (3.8-10.6) k/uL RBC (3.80-5.40) m/uL Hgb (11.4-16.0) gm/dL Hct (34.0-46.0) % RDW (11.5-15.5) % Neutrophils # (1.3-7.7) k/uL ABG pH (7.35-7.45) ABG pCO2 (35-45) mmHg ABG pO2 (83-108) mmHg ABG Total CO2 (19-24) mmol/L ABG O2 Saturation (94-97) % Chloride (98-107) mmol/L Carbon Dioxide (22-30) mmol/L BUN (7-17) mg/dL Creatinine (0.52-1.04) mg/dL Glucose (74-99) mg/dL POC Glucose (mg/dL) 165 H 171 H 167 H (75-99) mg/dL Calcium (8.4-10.2) mg/dL AST (14-36) U/L Alkaline Phosphatase (38-126) U/L Total Protein (6.3-8.2) g/dL Albumin (3.5-5.0) g/dL 02/23/21 02/23/21 02/23/21 Range/Units 00:26 01:13 02:19 WBC (3.8-10.6) k/uL RBC (3.80-5.40) m/uL Hgb (11.4-16.0) gm/dL Hct (34.0-46.0) % RDW (11.5-15.5) % Neutrophils # (1.3-7.7) k/uL ABG pH (7.35-7.45) ABG pCO2 (35-45) mmHg ABG pO2 (83-108) mmHg ABG Total CO2 (19-24) mmol/L ABG O2 Saturation (94-97) % Chloride (98-107) mmol/L Carbon Dioxide (22-30) mmol/L BUN (7-17) mg/dL Creatinine (0.52-1.04) mg/dL Glucose (74-99) mg/dL POC Glucose (mg/dL) 149 H 160 H 156 H (75-99) mg/dL Calcium (8.4-10.2) mg/dL AST (14-36) U/L Alkaline Phosphatase (38-126) U/L Total Protein (6.3-8.2) g/dL Albumin (3.5-5.0) g/dL 02/23/21 02/23/21 02/23/21 Range/Units 03:22 04:15 04:15 WBC 14.7 H (3.8-10.6) k/uL RBC 2.54 L (3.80-5.40) m/uL Hgb 7.4 L (11.4-16.0) gm/dL Hct 23.7 L (34.0-46.0) % RDW 17.6 H (11.5-15.5) % Neutrophils # 12.6 H (1.3-7.7) k/uL ABG pH (7.35-7.45) ABG pCO2 (35-45) mmHg ABG pO2 (83-108) mmHg ABG Total CO2 (19-24) mmol/L ABG O2 Saturation (94-97) % Chloride 110 H (98-107) mmol/L Carbon Dioxide 21 L (22-30) mmol/L BUN 82 H (7-17) mg/dL Creatinine 4.74 H (0.52-1.04) mg/dL Glucose 155 H (74-99) mg/dL POC Glucose (mg/dL) 159 H (75-99) mg/dL Calcium 6.7 L (8.4-10.2) mg/dL AST 142 H (14-36) U/L Alkaline Phosphatase 237 H (38-126) U/L Total Protein 4.9 L (6.3-8.2) g/dL Albumin 2.0 L (3.5-5.0) g/dL 02/23/21 02/23/21 02/23/21 Range/Units 04:28 05:08 05:50 WBC (3.8-10.6) k/uL RBC (3.80-5.40) m/uL Hgb (11.4-16.0) gm/dL Hct (34.0-46.0) % RDW (11.5-15.5) % Neutrophils # (1.3-7.7) k/uL ABG pH 7.30 L (7.35-7.45) ABG pCO2 47 H (35-45) mmHg ABG pO2 124 H (83-108) mmHg ABG Total CO2 25 H (19-24) mmol/L ABG O2 Saturation 98.9 H (94-97) % Chloride (98-107) mmol/L Carbon Dioxide (22-30) mmol/L BUN (7-17) mg/dL Creatinine (0.52-1.04) mg/dL Glucose (74-99) mg/dL POC Glucose (mg/dL) 172 H 164 H (75-99) mg/dL Calcium (8.4-10.2) mg/dL AST (14-36) U/L Alkaline Phosphatase (38-126) U/L Total Protein (6.3-8.2) g/dL Albumin (3.5-5.0) g/dL 02/23/21 02/23/21 02/23/21 Range/Units 06:14 07:18 08:45 WBC (3.8-10.6) k/uL RBC (3.80-5.40) m/uL Hgb (11.4-16.0) gm/dL Hct (34.0-46.0) % RDW (11.5-15.5) % Neutrophils # (1.3-7.7) k/uL ABG pH (7.35-7.45) ABG pCO2 (35-45) mmHg ABG pO2 (83-108) mmHg ABG Total CO2 (19-24) mmol/L ABG O2 Saturation (94-97) % Chloride (98-107) mmol/L Carbon Dioxide (22-30) mmol/L BUN (7-17) mg/dL Creatinine (0.52-1.04) mg/dL Glucose (74-99) mg/dL POC Glucose (mg/dL) 161 H 161 H 152 H (75-99) mg/dL Calcium (8.4-10.2) mg/dL AST (14-36) U/L Alkaline Phosphatase (38-126) U/L Total Protein (6.3-8.2) g/dL Albumin (3.5-5.0) g/dL 02/23/21 02/23/21 02/23/21 Range/Units 10:25 11:41 12:59 WBC (3.8-10.6) k/uL RBC (3.80-5.40) m/uL Hgb (11.4-16.0) gm/dL Hct (34.0-46.0) % RDW (11.5-15.5) % Neutrophils # (1.3-7.7) k/uL ABG pH (7.35-7.45) ABG pCO2 (35-45) mmHg ABG pO2 (83-108) mmHg ABG Total CO2 (19-24) mmol/L ABG O2 Saturation (94-97) % Chloride (98-107) mmol/L Carbon Dioxide (22-30) mmol/L BUN (7-17) mg/dL Creatinine (0.52-1.04) mg/dL Glucose (74-99) mg/dL POC Glucose (mg/dL) 139 H 129 H 127 H (75-99) mg/dL Calcium (8.4-10.2) mg/dL AST (14-36) U/L Alkaline Phosphatase (38-126) U/L Total Protein (6.3-8.2) g/dL Albumin (3.5-5.0) g/dL 02/23/21 Range/Units 14:27 WBC (3.8-10.6) k/uL RBC (3.80-5.40) m/uL Hgb (11.4-16.0) gm/dL Hct (34.0-46.0) % RDW (11.5-15.5) % Neutrophils # (1.3-7.7) k/uL ABG pH (7.35-7.45) ABG pCO2 (35-45) mmHg ABG pO2 (83-108) mmHg ABG Total CO2 (19-24) mmol/L ABG O2 Saturation (94-97) % Chloride (98-107) mmol/L Carbon Dioxide (22-30) mmol/L BUN (7-17) mg/dL Creatinine (0.52-1.04) mg/dL Glucose (74-99) mg/dL POC Glucose (mg/dL) 176 H (75-99) mg/dL Calcium (8.4-10.2) mg/dL AST (14-36) U/L Alkaline Phosphatase (38-126) U/L Total Protein (6.3-8.2) g/dL Albumin (3.5-5.0) g/dL Microbiology - Last 24 Hours (Table) 02/20/21 09:01 Blood Culture Gram Stain - Preliminary Blood Blood Culture - Preliminary Presumptive Staph aureus 02/21/21 09:35 Blood Culture Gram Stain - Preliminary Blood Blood Culture - Preliminary Staphylococcus aureus Assessment and Plan Assessment: Impression: Acute hypoxic respiratory failure secondary to cardiac arrest with prolonged downtime of 34 minutes until return of spontaneous circulation. Intubated on 02/13 , extubated on 02/16 reintubated on 02/17 and he remains intubated and unresponsive. Possible septic shock secondary to MSSA bacteremia patient remains on antibiotics. Did receive vancomycin she is now on cefepime. She had elevated pro Chavez level. Required pressors for low blood pressure. Suspect acute metabolic encephalopathy and anoxic brain injury Acute anterior wall myocardial infarction status post LAD the stenting on 02/13 Type 2 diabetes Benign essential hypertension Hypothyroidism Morbid obesity History of coronary artery disease New-onset atrial fibrillation History of marijuana smoking Recommendation: Continue ventilatory support Continue to hold sedation to assess mental status off sedation Continue dialysis Continue present ventilator settings he is now on assist control rate of 28th of volume 400 FiO2 50% and PEEP of 15, normal for weaning at this point. Continue antibiotics for possible cultures Continue cefepime Neurology is assessing her neurological status daily Patient remains critically ill Continue GI and DVT prophylaxis. Prognosis is guarded Critical care time is over 30 minutes. Time with Patient: Greater than 30
--- NOTE | 2021-02-23 15:45 | P.PN ---
Subjective Progress Note Date: 02/23/21 The patient is seen at bedside and per the nurse the patient condition has not changed. She continues to be off sedation. Objective - Vital Signs Vital signs: Vital Signs Temp 98 F 02/23/21 13:15 Pulse 111 H 02/23/21 15:00 Resp 24 02/23/21 15:00 BP 106/48 02/23/21 13:15 Pulse Ox 98 02/23/21 15:00 Intake & Output 02/22/21 02/23/21 02/23/21 18:59 06:59 18:59 Intake Total 7103.290 6094.272 996.538 Output Total 15 2003 Balance 4353.970 1551.272 -1007.462 Weight 142 kg 149.9 kg Intake: IV 347 362.0 207 Cefepime 1 gm In Sodium 50.0 Chloride 0.9% 50 ml @ 12. 5 mls/hr IVPB Q12HR [facility] Rx#:[id number] PRESSURE BAGS Sodium 72 72 27 chloride 0.9 Sodium Chloride 0.9% 1, 275 240 180 000 ml @ 20 mls/hr IV . Q24H [facility] Rx#:[id number] Intake, IV Titration 166.335 77.272 64.538 Amount Cefepime 1 gm In Sodium 50 Chloride 0.9% 50 ml @ 12. 5 mls/hr IVPB Q12HR [facility] Rx#:[id number] Insulin Regular 100 unit 66.791 53.983 37.292 In Sodium Chloride 0.9% 100 ml @ Per Protocol IV .Q0M [facility] Rx#:[id number] Norepinephrine 32 mg In 49.544 23.289 27.246 Sodium Chloride 0.9% 218 ml @ 0.05 MCG/KG/MIN 3. 202 mls/hr IV .Q24H [facility] Rx#:[id number] Tube Feeding 770 770 605 Lipid 20 PRESSURE BAGS Sodium 20 chloride 0.9 Other 130 90 120 Output: Urine 15 28 4 Hemodialysis 1999 Other: Voiding Method Indwelling Catheter Indwelling Catheter ABP, PAP, CO, CI - Last Documented Arterial Blood Pressure 105/38 - Exam GENERAL: The patient is morbid obese woman, lying in bed and does not seem in acute distress. LUNG: Clear to auscultation bilaterally no wheezing noted throughout. Not labored breathing. Intubated on ventilator. NEUROLOGICAL: Limited because of condition. Last IV sedation was on 02/20/21 at 8am. Higher mental function: The patient is comatose GCS 7 ( E1, VT1, M5). The patient is not verbally responsive or following commands. Cranial nerves: I manually opened her eyes. The primary gaze is midline. The pupils are round, equal (3-4mm) and reactive to light. Positive corneal reflex bilaterally. No facial weaknesss. Is breathing over the vent. Negative gag reflex. Motor: The strength is hard to assess because of her condition. But was minimally withdrawing to painful stimuli over the left upper extremity and left lower extremity. Normal tone and bulk. Cerebellum: Could not assess. Sensation: Could not assess light touch but seem to notice painful stimuli over the left side. WORK-UP: * AST of 123 which is trending up while ALTs 25. * Ammonia level 11. * His creatnine is trending up. On presentation it was 0.91 * Ionized calcium is 4.5. * Patient white blood cell is trending up is 23.0 * Computed tomography scan of head 02/14/21: Is reported as degenerative and nonspecific white matter changes are nonspecific. * Repeat CT head on 02/21/21: No acute intracranial hemorrhage or midline shift. There is mild diffuse age-related cerebral atrophy and chronic small vessel ischemic change redomenstarted without significant interval change. * EEG was abnormal due to background slowing of mild to moderate degree. This is suggestive of generalized cerebral dysfunction as can be seen with toxic metabolic encephalopathy or from diffuse structural brain abnormality. No epileptiform activity was seen. * 2-D echo was reported as left ventricular size is normal. Mild concentric left ventricular hypertrophy. Ejection fraction of 50-55%. - Labs CBC & Chem 7: 02/23/21 04:15 02/23/21 04:15 Labs: Abnormal Lab Results - Last 24 Hours (Table) 02/22/21 02/22/21 02/22/21 Range/Units 16:17 17:53 21:31 WBC (3.8-10.6) k/uL RBC (3.80-5.40) m/uL Hgb (11.4-16.0) gm/dL Hct (34.0-46.0) % RDW (11.5-15.5) % Neutrophils # (1.3-7.7) k/uL ABG pH (7.35-7.45) ABG pCO2 (35-45) mmHg ABG pO2 (83-108) mmHg ABG Total CO2 (19-24) mmol/L ABG O2 Saturation (94-97) % Chloride (98-107) mmol/L Carbon Dioxide (22-30) mmol/L BUN (7-17) mg/dL Creatinine (0.52-1.04) mg/dL Glucose (74-99) mg/dL POC Glucose (mg/dL) 151 H 164 H 165 H (75-99) mg/dL Calcium (8.4-10.2) mg/dL AST (14-36) U/L Alkaline Phosphatase (38-126) U/L Total Protein (6.3-8.2) g/dL Albumin (3.5-5.0) g/dL 02/22/21 02/22/21 02/23/21 Range/Units 22:18 23:00 00:26 WBC (3.8-10.6) k/uL RBC (3.80-5.40) m/uL Hgb (11.4-16.0) gm/dL Hct (34.0-46.0) % RDW (11.5-15.5) % Neutrophils # (1.3-7.7) k/uL ABG pH (7.35-7.45) ABG pCO2 (35-45) mmHg ABG pO2 (83-108) mmHg ABG Total CO2 (19-24) mmol/L ABG O2 Saturation (94-97) % Chloride (98-107) mmol/L Carbon Dioxide (22-30) mmol/L BUN (7-17) mg/dL Creatinine (0.52-1.04) mg/dL Glucose (74-99) mg/dL POC Glucose (mg/dL) 171 H 167 H 149 H (75-99) mg/dL Calcium (8.4-10.2) mg/dL AST (14-36) U/L Alkaline Phosphatase (38-126) U/L Total Protein (6.3-8.2) g/dL Albumin (3.5-5.0) g/dL 02/23/21 02/23/21 02/23/21 Range/Units 01:13 02:19 03:22 WBC (3.8-10.6) k/uL RBC (3.80-5.40) m/uL Hgb (11.4-16.0) gm/dL Hct (34.0-46.0) % RDW (11.5-15.5) % Neutrophils # (1.3-7.7) k/uL ABG pH (7.35-7.45) ABG pCO2 (35-45) mmHg ABG pO2 (83-108) mmHg ABG Total CO2 (19-24) mmol/L ABG O2 Saturation (94-97) % Chloride (98-107) mmol/L Carbon Dioxide (22-30) mmol/L BUN (7-17) mg/dL Creatinine (0.52-1.04) mg/dL Glucose (74-99) mg/dL POC Glucose (mg/dL) 160 H 156 H 159 H (75-99) mg/dL Calcium (8.4-10.2) mg/dL AST (14-36) U/L Alkaline Phosphatase (38-126) U/L Total Protein (6.3-8.2) g/dL Albumin (3.5-5.0) g/dL 02/23/21 02/23/21 02/23/21 Range/Units 04:15 04:15 04:28 WBC 14.7 H (3.8-10.6) k/uL RBC 2.54 L (3.80-5.40) m/uL Hgb 7.4 L (11.4-16.0) gm/dL Hct 23.7 L (34.0-46.0) % RDW 17.6 H (11.5-15.5) % Neutrophils # 12.6 H (1.3-7.7) k/uL ABG pH (7.35-7.45) ABG pCO2 (35-45) mmHg ABG pO2 (83-108) mmHg ABG Total CO2 (19-24) mmol/L ABG O2 Saturation (94-97) % Chloride 110 H (98-107) mmol/L Carbon Dioxide 21 L (22-30) mmol/L BUN 82 H (7-17) mg/dL Creatinine 4.74 H (0.52-1.04) mg/dL Glucose 155 H (74-99) mg/dL POC Glucose (mg/dL) 172 H (75-99) mg/dL Calcium 6.7 L (8.4-10.2) mg/dL AST 142 H (14-36) U/L Alkaline Phosphatase 237 H (38-126) U/L Total Protein 4.9 L (6.3-8.2) g/dL Albumin 2.0 L (3.5-5.0) g/dL 02/23/21 02/23/21 02/23/21 Range/Units 05:08 05:50 06:14 WBC (3.8-10.6) k/uL RBC (3.80-5.40) m/uL Hgb (11.4-16.0) gm/dL Hct (34.0-46.0) % RDW (11.5-15.5) % Neutrophils # (1.3-7.7) k/uL ABG pH 7.30 L (7.35-7.45) ABG pCO2 47 H (35-45) mmHg ABG pO2 124 H (83-108) mmHg ABG Total CO2 25 H (19-24) mmol/L ABG O2 Saturation 98.9 H (94-97) % Chloride (98-107) mmol/L Carbon Dioxide (22-30) mmol/L BUN (7-17) mg/dL Creatinine (0.52-1.04) mg/dL Glucose (74-99) mg/dL POC Glucose (mg/dL) 164 H 161 H (75-99) mg/dL Calcium (8.4-10.2) mg/dL AST (14-36) U/L Alkaline Phosphatase (38-126) U/L Total Protein (6.3-8.2) g/dL Albumin (3.5-5.0) g/dL 02/23/21 02/23/21 02/23/21 Range/Units 07:18 08:45 10:25 WBC (3.8-10.6) k/uL RBC (3.80-5.40) m/uL Hgb (11.4-16.0) gm/dL Hct (34.0-46.0) % RDW (11.5-15.5) % Neutrophils # (1.3-7.7) k/uL ABG pH (7.35-7.45) ABG pCO2 (35-45) mmHg ABG pO2 (83-108) mmHg ABG Total CO2 (19-24) mmol/L ABG O2 Saturation (94-97) % Chloride (98-107) mmol/L Carbon Dioxide (22-30) mmol/L BUN (7-17) mg/dL Creatinine (0.52-1.04) mg/dL Glucose (74-99) mg/dL POC Glucose (mg/dL) 161 H 152 H 139 H (75-99) mg/dL Calcium (8.4-10.2) mg/dL AST (14-36) U/L Alkaline Phosphatase (38-126) U/L Total Protein (6.3-8.2) g/dL Albumin (3.5-5.0) g/dL 02/23/21 02/23/21 02/23/21 Range/Units 11:41 12:59 14:27 WBC (3.8-10.6) k/uL RBC (3.80-5.40) m/uL Hgb (11.4-16.0) gm/dL Hct (34.0-46.0) % RDW (11.5-15.5) % Neutrophils # (1.3-7.7) k/uL ABG pH (7.35-7.45) ABG pCO2 (35-45) mmHg ABG pO2 (83-108) mmHg ABG Total CO2 (19-24) mmol/L ABG O2 Saturation (94-97) % Chloride (98-107) mmol/L Carbon Dioxide (22-30) mmol/L BUN (7-17) mg/dL Creatinine (0.52-1.04) mg/dL Glucose (74-99) mg/dL POC Glucose (mg/dL) 129 H 127 H 176 H (75-99) mg/dL Calcium (8.4-10.2) mg/dL AST (14-36) U/L Alkaline Phosphatase (38-126) U/L Total Protein (6.3-8.2) g/dL Albumin (3.5-5.0) g/dL Microbiology - Last 24 Hours (Table) 02/20/21 09:01 Blood Culture Gram Stain - Preliminary Blood Blood Culture - Preliminary Presumptive Staph aureus 02/21/21 09:35 Blood Culture Gram Stain - Preliminary Blood Blood Culture - Preliminary Staphylococcus aureus Assessment and Plan Assessment: * Altered mental status due to multifactorial: anoxic encephalopathy due to cardiac arrest (24 minutes), septic encephalopathy and component of toxic- metabolic encephalopathy (her creatine is trending up, with slight elevation of AST). Has component of medication effect (Propofol which was discontinued 24 hours ago) and take time to resolve since BRITTANY. * Status post cardiac arrest, with the downtime of 32 minutes. Patient was extubated 02/16/2021 doing quite well, following commands appropriately, and then re-intubated on 02/17/2021 due to respiratory distress. * Epic shock secondary due to methicillin sensitive staph aureus bacteremia/pneumonia. Is on antibiotic and pressors. Most current vital is hypotensive. * Acute kidney injury and is trending upward and is receiving dialysis. * Mild hepatopathy * Acute STEMI, * New onset atrial fibrillation vertigo to normal sinus rhythm. * History of Diabetes * History of hypothyroidism * Hypertension * CAD Plan: Had previous EEG and no seizure or epileptiform activity seen on prior EEG (02/15/21). Ordered repeat EEG. Q2 neuro checks. Nephrology team in on board. Please avoid any hypotensive episode we'll defer the management to the primary and ICU team. Defer the rest of the medical management to the primary ICU team CONDITION: Is very guarded. The plan is discussed with the patient's nurse. Dominic Chávez M.D. Neuro-Hospitalist Time with Patient: Less than 30
[2021-02-23 16:17] LABS: Glucose,Whole Blood 186 mg/dL (75-99)
[2021-02-23] MEDS: SODIUM CHLORIDE 0.9% 1,000 ML IV SCH (16:20)
[2021-02-23 17:54] LABS: Glucose,Whole Blood 186 mg/dL (75-99)
[2021-02-23 20:55] LABS: Glucose,Whole Blood 175 mg/dL (75-99)
[2021-02-23] MEDS: ATORVASTATIN 80 MG TAB PO SCH (21:10)
[2021-02-23 22:33] LABS: Glucose,Whole Blood 169 mg/dL (75-99)
--- NOTE | 2021-02-23 22:43 | PN ---
PROGRESS NOTE DATE OF SERVICE: 02/23/2021 REASON FOR FOLLOWUP: MSSA bacteremia, likely pneumonia. INTERVAL HISTORY: The patient is afebrile. The patient is requiring low-dose pressor support. FiO2 is currently 50%. No significant purulent secretion through the ET, diarrhea or any other changes reported by the nursing staff. The patient did get her dialysis today. PHYSICAL EXAMINATION: Blood pressure 129/48 with a pulse of 107, temperature 98. She is 98% on 50% FiO2. General description is a middle-aged female intubated on the vent. Respiratory system: Unlabored breathing, decreased intensity of breath sounds. No wheeze. Heart S1, S2. Regular rate and rhythm. Abdomen soft, no tenderness. LABS: Hemoglobin is 7.4, white count .7, creatinine 4.74. DIAGNOSTIC IMPRESSION AND PLAN: Patient with MSSA bacteremia. Source is possible pneumonia; sputum with the same pathogen. Blood culture has been repeated to document clearance of bacteremia. Continue cefazolin. Prognosis remains guarded. MMODL / IJN: [id number] /
--- NOTE | 2021-02-24 00:02 | P.PN ---
Subjective This is a pleasant 65 years old female with past medical history of Coronary Artery Disease , Diabetes Mellitus, GERD, Hypertension, hypothyroidism. She is a patient of Dr. Brambila Patient presents with unresponsiveness and and cardiac arrest. CPR was ongoing through EMS, patient was found in ventricular fibrillation per EMS, Pt was given 5 epi, 5 shocks and 450mg of Amniodarone. Pt did have ROSC for a few minutes but when arriving to ER no pulse present. In the emergency room patient got intubated and placed on mechanical ventilation. Initial vitals showed temperature 97.3, heart rate 79, breathing rate 16, blood pressure 118/71 and 92/62 and she was saturating 96% on mechanical ventilation Labs were showing leukocytosis of 20.5 K. INR 2.7 PH 7.2, pCO2 47 and pO2 59. Sodium 137, low potassium 2.8, normal creatinine 0.9. Glucose elevated to 65. Liver enzymes slightly elevated with AST 83 and ALT 36. Trending up troponin 0.02, 9.4 and 23.9. Coronavirus chest x-ray: Status post intubation. There may be underlying pulmonary edema or pneumonia. Repeat fracture noted on the left Nondetected. EKG showing ST elevation in anterior septal leads V1 to V4 Patient was taken to emergent cardiac cath and she underwent cardiac cathete rization with PCI to the totally occluded proximal LAD. After the procedure patient was placed on aspirin, Brillinta ,and beta beni, GONZALEZ inhibitor and statin Today patient is still intubated in the ICU, and on mechanical ventilation. She has PEEP of 10, FiO2 of 40%, tidal volume 375, she has sinus rhythm at 90 bpm, she has a Mcneil and OG tube. She has normal saline running at 50 mL per hour 02/15/2021 ICU intubated and sedated with pulmonary/critical care team followed closely Patient failed sedation trial yesterday and today. Neurology team on the case PEG showing no epileptiform discharge Ejection fraction is 50-55% Chest x-ray no change from yesterday Labs reviewed, WBC down to 14 K, INR down to normal at 1.5 Patient remains on aspirin and Brilinta Continue with gentle hydration, lisinopril, metoprolol and Aldactone with cardiology and nephrology followed the patient closely 02/16/2021 Patient remains in the ICU intubated and sedated. She is undergoing sedation holiday today as well with possible extubation that are on. She is developing fever of 100.4, her WBCs 15 K. EEG showing no epileptiform discharge. Chest x-ray showing increased perihilar opacity. There are sputum culture, proteincalcitonin. Patient is kept on aspirin and Brilinta and gentle hydration. 02/17/2021 Yesterday patient got extubated and she was doing relatively well until during the night when her respiratory status Worsened and by the morning she has to be intubated again for tachypnea and tachycardia and now she is again on mechanical ventilation. Also patient is a spiking a fever and 102 most likely secondary to pneumonia and patient was started on cefepime with culture has been requested from blood and sputum. 02/18/2021 Today patient still intubated and sedated, she still on mechanical ventilation. With pulmonary/critical care team monitor her closely and following her She is developing pneumonia with sepsis status progressed into septic shock, blood culture and sputum culture are growing staph aureus pending final culture results patient was started on IV vancomycin as well as cefepime. her blood pressure started dropping and she needed levothroid, her creatinine trending up and she is developing oliguria as per last hour she made only 5 ml/h when i checked with the night nurse. therefore 1 l liter of bolus is provided. her sugar is elevated more than 300 and if this not improving she might need to be started on insulin drip. her leukocytosis is at 14 k, creatinine trending up to 1.2. she still has a fever of 102 today. Remains on aspirin and Brilinta, pulmonary/critical care team and cardiology teams on the case 02/19/2021 Patient remains in critical condition needs mechanical ventilation on Levophed for her septic shock secondary to MSSA septicemia and pneumonia with positive sputum on blood culture Her antibiotics were adjusted today about pulmonary/critical care team into Levaquin while they discontinued cefepime and IV vancomycin. Patient still running high fever at 102. And she is becoming oliguric with acute kidney injury creatinine trending up to 2.7. Nephrology consult was obtained as she might need dialysis down the road if no improvement. Chest x-ray shows slight worsening on the right side or an changed. When I reviewed by myself. Antibiotics has just adjusted as above. Also she is on normal saline at 50 mm, insulin drip and pressors. Also she is on aspirin, Brilinta for her new ostomy 02/20/2021 Patient remains intubated and sedated in the ICU. She still in critical condition. She is currently in septic shock secondary to MSSA pneumonia and bacteremia. She's been covered with broad-spectrum antibiotics of Levaquin and cefepime. Continue with IV fluid normal sign 75 and pressors with levophed and vasopressin Also he is on insulin drip. Labs showed leukocytosis of 15.6. Creatinine trending up to 3.7 and patient is oliguric. Patient is started on hemodialysis today, second hemodialysis tomorrow 02/21/2021 Patients with septic shock secondary to MSSA pneumonia and septicemia status post cardiac arrest on arrival to the emergency room, resuscitated and currently intubated in the ICU. She developed oliguric renal failure undergoing hemodialysis. She was taken off sedation with no much response, therefore neurologist is involved and she is having negative CT of the brain. Plan to repeat EEG tomorrow Other than that she remains critically ill in the ICU and kept on broad-spectrum antibiotics with cefepime and Levaquin, aspirin and Brilinta Today DC'd her Levaquin Continue with insulin and drip 02/22/2021 Patient remains in septic shock and respiratory failure requiring intubation and mechanical ventilation. Several consultants on the case including pulmonary/critical care team, nephrology, cardiology, neurology. She still needs pressors. Patient has been afebrile for more than 48 hours but her blood culture showing persistent staff. She received 1 dose of IV vancomycin on the top of cefepime and Levaquin. Infectious disease team were consulted today. WBC is 15 K, creatinine 3.7 and she is undergoing hemodialysis today and tomorrow as she is anuric. Glucose controlled on insulin drip. Hemoglobin is stable at 8.0. She is on aspirin and Brilinta given her cardiac arrest upon admission. Prognosis remains guarded 02/23/2021 Patient critically air in the ICU with pulmonary/critical care team monitor her closely and help with vent management. It looks patient brain function is not showing good response while off sedation with neurology team on the case and recommended repeat EEG. Other than that she remains on FiO2 of 50%, she is tachypneic every 2 and afebrile. WBC today 14.7, creatinine 4.7. Hemoglobin 7.4. Antibiotics were adjusted to cefazolin today. Patient did not cut hemodialysis yesterday, she will Probably 1 today. Continue with aspirin Brilinta, with roll press operator team on the case Objective - Vital Signs Vital signs: Vital Signs Temp 98.4 F 02/23/21 12:00 Pulse 108 H 02/23/21 12:00 Resp 34 H 02/23/21 12:00 BP 119/52 02/23/21 08:00 Pulse Ox 99 02/23/21 12:00 Intake & Output 02/22/21 02/23/21 02/23/21 18:59 06:59 18:59 Intake Total 8662.028 3037.272 683.292 Output Total 15 28 4 Balance 7014.430 4305.272 679.292 Weight 142 kg 149.9 kg Intake: IV 347 362.0 141 Cefepime 1 gm In Sodium 50.0 Chloride 0.9% 50 ml @ 12. 5 mls/hr IVPB Q12HR [facility] Rx#:[id number] PRESSURE BAGS Sodium 72 72 21 chloride 0.9 Sodium Chloride 0.9% 1, 275 240 120 000 ml @ 20 mls/hr IV . Q24H [facility] Rx#:[id number] Intake, IV Titration 166.335 77.272 37.292 Amount Cefepime 1 gm In Sodium 50 Chloride 0.9% 50 ml @ 12. 5 mls/hr IVPB Q12HR [facility] Rx#:[id number] Insulin Regular 100 unit 66.791 53.983 37.292 In Sodium Chloride 0.9% 100 ml @ Per Protocol IV .Q0M [facility] Rx#:[id number] Norepinephrine 32 mg In 49.544 23.289 Sodium Chloride 0.9% 218 ml @ 0.05 MCG/KG/MIN 3. 202 mls/hr IV .Q24H [facility] Rx#:[id number] Tube Feeding 770 770 385 Lipid 20 PRESSURE BAGS Sodium 20 chloride 0.9 Other 130 90 120 Output: Urine 15 28 4 Other: Voiding Method Indwelling Catheter Indwelling Catheter ABP, PAP, CO, CI - Last Documented Arterial Blood Pressure 110/43 - Exam -GENERAL: The patient is sedated and intubated, not in any acute distress. morbidly obese HEENT: Pupils are round and equally reacting to light. EOMI. No scleral icterus. No conjunctival pallor. Normocephalic, atraumatic. No pharyngeal erythema. No thyromegaly. CARDIOVASCULAR: S1 and S2 present. No murmurs, rubs, or gallops. PULMONARY: Chest is clear to auscultation, no wheezing. ABDOMEN: Soft, nontender, nondistended, normoactive bowel sounds. No palpable organomegaly. MUSCULOSKELETAL: No joint swelling or deformity. EXTREMITIES: No cyanosis, clubbing, or pedal edema. NEUROLOGICAL: Gross neurological examination did not reveal any focal deficits. SKIN: No rashes. no petechiae. - Labs CBC & Chem 7: 02/23/21 04:15 02/23/21 04:15 Labs: Abnormal Lab Results - Last 24 Hours (Table) 02/22/21 02/22/21 02/22/21 Range/Units 13:00 14:08 15:01 WBC (3.8-10.6) k/uL RBC (3.80-5.40) m/uL Hgb (11.4-16.0) gm/dL Hct (34.0-46.0) % RDW (11.5-15.5) % Neutrophils # (1.3-7.7) k/uL ABG pH (7.35-7.45) ABG pCO2 (35-45) mmHg ABG pO2 (83-108) mmHg ABG Total CO2 (19-24) mmol/L ABG O2 Saturation (94-97) % Chloride (98-107) mmol/L Carbon Dioxide (22-30) mmol/L BUN (7-17) mg/dL Creatinine (0.52-1.04) mg/dL Glucose (74-99) mg/dL POC Glucose (mg/dL) 158 H 155 H 153 H (75-99) mg/dL Calcium (8.4-10.2) mg/dL AST (14-36) U/L Alkaline Phosphatase (38-126) U/L Total Protein (6.3-8.2) g/dL Albumin (3.5-5.0) g/dL 02/22/21 02/22/21 02/22/21 Range/Units 16:17 17:53 21:31 WBC (3.8-10.6) k/uL RBC (3.80-5.40) m/uL Hgb (11.4-16.0) gm/dL Hct (34.0-46.0) % RDW (11.5-15.5) % Neutrophils # (1.3-7.7) k/uL ABG pH (7.35-7.45) ABG pCO2 (35-45) mmHg ABG pO2 (83-108) mmHg ABG Total CO2 (19-24) mmol/L ABG O2 Saturation (94-97) % Chloride (98-107) mmol/L Carbon Dioxide (22-30) mmol/L BUN (7-17) mg/dL Creatinine (0.52-1.04) mg/dL Glucose (74-99) mg/dL POC Glucose (mg/dL) 151 H 164 H 165 H (75-99) mg/dL Calcium (8.4-10.2) mg/dL AST (14-36) U/L Alkaline Phosphatase (38-126) U/L Total Protein (6.3-8.2) g/dL Albumin (3.5-5.0) g/dL 02/22/21 02/22/21 02/23/21 Range/Units 22:18 23:00 00:26 WBC (3.8-10.6) k/uL RBC (3.80-5.40) m/uL Hgb (11.4-16.0) gm/dL Hct (34.0-46.0) % RDW (11.5-15.5) % Neutrophils # (1.3-7.7) k/uL ABG pH (7.35-7.45) ABG pCO2 (35-45) mmHg ABG pO2 (83-108) mmHg ABG Total CO2 (19-24) mmol/L ABG O2 Saturation (94-97) % Chloride (98-107) mmol/L Carbon Dioxide (22-30) mmol/L BUN (7-17) mg/dL Creatinine (0.52-1.04) mg/dL Glucose (74-99) mg/dL POC Glucose (mg/dL) 171 H 167 H 149 H (75-99) mg/dL Calcium (8.4-10.2) mg/dL AST (14-36) U/L Alkaline Phosphatase (38-126) U/L Total Protein (6.3-8.2) g/dL Albumin (3.5-5.0) g/dL 02/23/21 02/23/21 02/23/21 Range/Units 01:13 02:19 03:22 WBC (3.8-10.6) k/uL RBC (3.80-5.40) m/uL Hgb (11.4-16.0) gm/dL Hct (34.0-46.0) % RDW (11.5-15.5) % Neutrophils # (1.3-7.7) k/uL ABG pH (7.35-7.45) ABG pCO2 (35-45) mmHg ABG pO2 (83-108) mmHg ABG Total CO2 (19-24) mmol/L ABG O2 Saturation (94-97) % Chloride (98-107) mmol/L Carbon Dioxide (22-30) mmol/L BUN (7-17) mg/dL Creatinine (0.52-1.04) mg/dL Glucose (74-99) mg/dL POC Glucose (mg/dL) 160 H 156 H 159 H (75-99) mg/dL Calcium (8.4-10.2) mg/dL AST (14-36) U/L Alkaline Phosphatase (38-126) U/L Total Protein (6.3-8.2) g/dL Albumin (3.5-5.0) g/dL 02/23/21 02/23/21 02/23/21 Range/Units 04:15 04:15 04:28 WBC 14.7 H (3.8-10.6) k/uL RBC 2.54 L (3.80-5.40) m/uL Hgb 7.4 L (11.4-16.0) gm/dL Hct 23.7 L (34.0-46.0) % RDW 17.6 H (11.5-15.5) % Neutrophils # 12.6 H (1.3-7.7) k/uL ABG pH (7.35-7.45) ABG pCO2 (35-45) mmHg ABG pO2 (83-108) mmHg ABG Total CO2 (19-24) mmol/L ABG O2 Saturation (94-97) % Chloride 110 H (98-107) mmol/L Carbon Dioxide 21 L (22-30) mmol/L BUN 82 H (7-17) mg/dL Creatinine 4.74 H (0.52-1.04) mg/dL Glucose 155 H (74-99) mg/dL POC Glucose (mg/dL) 172 H (75-99) mg/dL Calcium 6.7 L (8.4-10.2) mg/dL AST 142 H (14-36) U/L Alkaline Phosphatase 237 H (38-126) U/L Total Protein 4.9 L (6.3-8.2) g/dL Albumin 2.0 L (3.5-5.0) g/dL 02/23/21 02/23/21 02/23/21 Range/Units 05:08 05:50 06:14 WBC (3.8-10.6) k/uL RBC (3.80-5.40) m/uL Hgb (11.4-16.0) gm/dL Hct (34.0-46.0) % RDW (11.5-15.5) % Neutrophils # (1.3-7.7) k/uL ABG pH 7.30 L (7.35-7.45) ABG pCO2 47 H (35-45) mmHg ABG pO2 124 H (83-108) mmHg ABG Total CO2 25 H (19-24) mmol/L ABG O2 Saturation 98.9 H (94-97) % Chloride (98-107) mmol/L Carbon Dioxide (22-30) mmol/L BUN (7-17) mg/dL Creatinine (0.52-1.04) mg/dL Glucose (74-99) mg/dL POC Glucose (mg/dL) 164 H 161 H (75-99) mg/dL Calcium (8.4-10.2) mg/dL AST (14-36) U/L Alkaline Phosphatase (38-126) U/L Total Protein (6.3-8.2) g/dL Albumin (3.5-5.0) g/dL 02/23/21 02/23/21 02/23/21 Range/Units 07:18 08:45 10:25 WBC (3.8-10.6) k/uL RBC (3.80-5.40) m/uL Hgb (11.4-16.0) gm/dL Hct (34.0-46.0) % RDW (11.5-15.5) % Neutrophils # (1.3-7.7) k/uL ABG pH (7.35-7.45) ABG pCO2 (35-45) mmHg ABG pO2 (83-108) mmHg ABG Total CO2 (19-24) mmol/L ABG O2 Saturation (94-97) % Chloride (98-107) mmol/L Carbon Dioxide (22-30) mmol/L BUN (7-17) mg/dL Creatinine (0.52-1.04) mg/dL Glucose (74-99) mg/dL POC Glucose (mg/dL) 161 H 152 H 139 H (75-99) mg/dL Calcium (8.4-10.2) mg/dL AST (14-36) U/L Alkaline Phosphatase (38-126) U/L Total Protein (6.3-8.2) g/dL Albumin (3.5-5.0) g/dL 02/23/21 Range/Units 11:41 WBC (3.8-10.6) k/uL RBC (3.80-5.40) m/uL Hgb (11.4-16.0) gm/dL Hct (34.0-46.0) % RDW (11.5-15.5) % Neutrophils # (1.3-7.7) k/uL ABG pH (7.35-7.45) ABG pCO2 (35-45) mmHg ABG pO2 (83-108) mmHg ABG Total CO2 (19-24) mmol/L ABG O2 Saturation (94-97) % Chloride (98-107) mmol/L Carbon Dioxide (22-30) mmol/L BUN (7-17) mg/dL Creatinine (0.52-1.04) mg/dL Glucose (74-99) mg/dL POC Glucose (mg/dL) 129 H (75-99) mg/dL Calcium (8.4-10.2) mg/dL AST (14-36) U/L Alkaline Phosphatase (38-126) U/L Total Protein (6.3-8.2) g/dL Albumin (3.5-5.0) g/dL Microbiology - Last 24 Hours (Table) 02/20/21 09:01 Blood Culture Gram Stain - Preliminary Blood Blood Culture - Preliminary Presumptive Staph aureus 02/21/21 09:35 Blood Culture Gram Stain - Preliminary Blood Blood Culture - Preliminary Staphylococcus aureus Assessment and Plan Assessment: Acute anteroseptal STEMI Cardiac arrest, status post ventricular fibrillation status post CPR and return of circulation Acute hypoxic respiratory failure needing intubation and mechanical ventilation Sepsis secondary to pneumonia with fever and leukocytosis, developing into septic shock secondary to MSSA in the sputum and blood Metabolic acidosis acute kidney injury with oliguria requiring hemodialysis unresponsiveness off sedation concerning for ischemic brain injury Possible pulmonary edema Leukocytosis, secondary to above Left fracture secondary to CPR Coagulopathy with INR 2.7 upon admission, resolved Hypertension Hypothyroidism Diabetes mellitus History of GERD History of coronary artery disease Morbidly obese. BMI 45.8 Plan: This is a 65 years old female who presents with STEMI and cardiac arrest status post CPR and intubation, underwent cardiac cath and PCI to LAD Continue with aspirin, brillinta Continue with Intubation and mechanical ventilation with pulmonary/critical care team consult with possible extubation. Pulmonary team Antibiotics were adjusted to cefepime. Nephrology consult. Continue with hemodialysis per her body sander Tugboat Operator on the case Neurologist consulted. Infectious disease consult Labs and medication were reviewed.. Continue same treatment. Continue with symptomatic treatment. Resume home medication. Monitor lytes and vitals. DVT and GI prophylaxis. Further recommendations as per clinical course of the patient DVT prophylaxis: Aspirin and brillinta GI Prophylaxis: Pepcid Prognosis is guarded
[2021-02-24 00:14] LABS: Glucose,Whole Blood 167 mg/dL (75-99)
[2021-02-24 02:06] LABS: Glucose,Whole Blood 168 mg/dL (75-99)
[2021-02-24] MEDS: IPRATROPIUM-ALBUTEROL 3 ML NEB INHALATION SCH ×5 (03:32→21:26)
[2021-02-24 04:12] LABS: Glucose,Whole Blood 178 mg/dL (75-99)
[2021-02-24 05:46] LABS: Glucose,Whole Blood 155 mg/dL (75-99)
[2021-02-24] MEDS: NOREPINEPHRINE 32 MG in SODIUM CHLORIDE 0.9% 218 ML IV SCH (05:59)
[2021-02-24] MEDS: INSULIN REGULAR 100 UNIT in SODIUM CHLORIDE 0.9% 100 ML IV SCH (06:00)
[2021-02-24 06:19] LABS: Anisocytosis Slight; Basophils % (A) 0 %; Eosinophils # (A) 0.4 k/uL (0-0.7); Eosinophils % (A) 3 %; HCT 25.9 % (34.0-46.0); Hypochromasia Marked; Lymphocytes # (A) 1.1 k/uL (1.0-4.8); Lymphocytes % (A) 9 %; MCH 29.1 pg (25.0-35.0); MCV 93.8 fL (80.0-100.0); Mean Platelet Volume 10.1; Monocytes # (A) 0.6 k/uL (0-1.0); Monocytes % (A) 5 %; Neutrophils # (A) 10.8 k/uL (1.3-7.7); Neutrophils % (A) 82 %; Platelet Count 192 k/uL (150-450); RBC 2.76 m/uL (3.80-5.40); WBC 13.1 k/uL (3.8-10.6)
[2021-02-24 06:23] LABS: Albumin 2.1 g/dL (3.5-5.0); Potassium 4.5 mmol/L (3.5-5.1); Total Bilirubin 0.4 mg/dL (0.2-1.3); Total Protein 5.1 g/dL (6.3-8.2)
[2021-02-24 06:26] LABS: ABG Base Excess -0.3 mmol/L; ABG HCO3 26 mmol/L (21-25); ABG Oxygen Saturation 97.4 % (94-97); ABG PCO2 49 mmHg (35-45); ABG PH 7.33 (7.35-7.45); ABG PO2 95 mmHg (83-108); ABG TCO2 27 mmol/L (19-24)
[2021-02-24 06:29] LABS: Allen Test Performed? no
[2021-02-24] MEDS: LEVOTHYROXINE 100 MCG TAB PO SCH (06:48)
--- NOTE | 2021-02-24 06:50 | XR ---
EXAMINATION TYPE: XR chest 1V portable DATE OF EXAM: 02/24/2021 CLINICAL HISTORY: Hypoxia progress study. TECHNIQUE: Single AP portable upright view of the chest is obtained. COMPARISON: Chest x-ray from one day earlier and older studies. FINDINGS: Stable endotracheal and orogastric tubes. Stable left-sided central venous catheter. Low lung volumes with right basilar opacity. Increasing diffuse left lung opacity. Cardiac silhouette size is stable and upper limits of normal. Osseous structures are intact. IMPRESSION: Worsening left lung edema and/or infiltrates.
[2021-02-24 08:06] LABS: Glucose,Whole Blood 155 mg/dL (75-99)
[2021-02-24] MEDS: ASPIRIN 81 MG PO SCH (09:56)
[2021-02-24] MEDS: PANTOPRAZOLE 40 MG/10 ML VIAL IVP SCH (09:57)
[2021-02-24] MEDS: ENOXAPARIN 30 MG/0.3 ML SYRINGE SQ SCH (09:57)
[2021-02-24] MEDS: TICAGRELOR 90 MG TAB PO SCH ×2 (09:57→20:03)
[2021-02-24] MEDS: CHLORHEXIDINE GLUCONATE 15 ML CUP MUCOUS MEM SCH ×2 (09:57→20:04)
[2021-02-24 10:11] LABS: Glucose,Whole Blood 157 mg/dL (75-99)
[2021-02-24 11:48] LABS: Glucose,Whole Blood 120 mg/dL (75-99)
--- NOTE | 2021-02-24 12:01 | P.PN ---
Subjective Progress Note Date: 02/24/21 Principal diagnosis: Acute hypoxic respiratory failure secondary to auto possible cardiac arrest with prolonged down time, 34 minutes before return of spontaneous circulation. On 02/22/2022 patient seen in follow-up in intensive care unit. She remains unresponsive, she has been off sedation since 02/20/2021. She has not received any Diprivan or narcotics. She remains intubated on assist control mode of ventilation with a rate of 28, tidal volume is 400, FiO2 of 50% and PEEP of 15. This morning's blood gas shows pO2 of 85, pCO2 50, and pH of 7.29 and this was done on the above-mentioned vent settings. She is on small amount of norepinephrine, 11 mics per minute, vasopressin has been discontinued, she is on 0.9 normal saline at a rate of 20 ML per hour, no other drips. She is in sinus mechanism slightly tachycardic with a rate of 105. She has not had recurrence of A. fib. She is on aspirin and Brilinta for a recent history of stenting of the LAD 2. No other anti-coagulants at this time. Her chest x-ray today shows diffuse bilateral infiltrates that are stable in appearance, and consolidative process in the left lower lobe with a small left pleural effusion, patient was started on hemodialysis and she had hemodialysis treatments for the last 2 days. On 02/21/2021 she had 1 L of fluid removed with hemodialysis, and just ultrafiltration on 02/20/2021 with no fluid removed. Urine output is minimal in the order of 5-10 mL per hour, patient is an significantly positive net fluid balance since admission, she has significant third spacing and edema involving her upper and lower extremities and trunk. She is at least 10 kg positive since admission. Low-grade fevers overnight. T-max is 99.6F. Patient remains on cefepime for antibiotic coverage, her blood cultures from 02/17/2021 showed MSSA, follow-up blood cultures sent on 02/20/2021 and 02/21/2021 are showing gram-positive cocci in groups. Final culture is pending. Today's labs show im provement in white count which is down to 15.4, hemoglobin is 8.0, platelet count is 147, sodium is 144, potassium is 3.4, chloride is 112, B1 is 56, and creatinine is 3.74, renal profile is relatively stable, her AST is 132, slightly increased, ALT is within normal limits at 25, alkaline phosphatase is 232, her last pro-calcitonin from yesterday 02/21/2021 was still significantly elevated at 16.9. Patient did receive a dose of vancomycin a few days back, her last Vanco troph was on 02/19/2021 and was at 19.0. Neurologically patient doesn't attempt to open eyes, does not follow any purposeful command, she does have a positive corneal reflex, positive cough, negative gag, negative Babinski. CT of the brain from yesterday on 02/21/2021 showed no acute intracranial hemorrhage or midline shift, mild diffuse age-related cerebral atrophy and chronic small vessel ischemic change without significant interval change. There was worsening paranasal sinus findings possibly related to intubation versus sinusitis. Neurology is following. Reevaluated today on 02/23/21, patient remains intubated and mechanically ventilated, she is on assist control rate of 28 tidal volume 400 FiO2 50% PEEP o f 15. Remains on norepinephrine at 0.03 mcg/kg/m on insulin for 5.5 units per hour she is off sedation completely, she is not requiring any narcotics or sedatives. She is not on any paralytics. ABG showed a pO2 of 124 pCO2 47 pH of 7.30. Patient is undergoing hemodialysis during my evaluation. Chest x-ray showed bilateral infiltrates greater on the left compared to the right, I believe the findings are mostly findings of CHF not true pneumonia although the patient may have aspirated during the code. WBC count is 14.7, hemoglobin is 7.4 electrolytes are normal BUN is 82 creatinine 4.74. Patient is being followed by many consultants including cardiology and nephrology and neurology, and at this point I believe her condition is extremely poor, and I doubt if we are going to notice any neurological recovery. May have to approach family somewhat along the line regarding CODE STATUS and comfort care measures. Reevaluated today on 02/24/21, patient remains in the ICU, intubated and m echanically ventilated. She is on assist control rate of 28 tidal volume 400 FiO2 on the percent and PEEP of 15. ABG is marginal with a pO2 of 95 pCO2 49 pH of 7.33. Chest x-ray is showing worsening left lung edema and or infiltrates. Patient is supposed to be dialyzed today, and I believe that would likely improve her pulmonary status. Her FiO2 had to be increased up to 100% last night. And today we will try to titrated down and maintain O2 saturation above 90%. Renal functioning remains poor with elevated BUN elevated creatinine of 7.06. WBC count is 15.1 hemoglobin is 8.0. Patient remains empirically on antibiotics. She is also on Lovenox/DVT prophylaxis. And she is also on Sheri linta, on Protonix for GI prophylaxis. His been on off norepinephrine intermittently Objective - Vital Signs Vital signs: Vital Signs Temp 99.8 F H 02/24/21 08:00 Pulse 115 H 02/24/21 11:44 Resp 32 H 02/24/21 10:00 BP 135/64 02/24/21 07:00 Pulse Ox 97 02/24/21 10:00 Intake & Output 02/23/21 02/24/21 02/24/21 18:59 06:59 18:59 Intake Total 1281.238 553.079 28.668 Output Total 2004 22 0 Balance -722.762 531.079 28.668 Intake: IV 276 359 26 Kefzol 50 PRESSURE BAGS Sodium 36 69 6 chloride 0.9 Sodium Chloride 0.9% 1, 240 240 20 000 ml @ 20 mls/hr IV . Q24H [facility] Rx#:[id number] Intake, IV Titration 85.238 84.079 2.668 Amount Insulin Regular 100 unit 57.992 64.800 In Sodium Chloride 0.9% 100 ml @ Per Protocol IV .Q0M [facility] Rx#:[id number] Norepinephrine 32 mg In 27.246 19.279 2.668 Sodium Chloride 0.9% 218 ml @ 0.05 MCG/KG/MIN 3. 202 mls/hr IV .Q24H [facility]ANA Rx#:[id number] Tube Feeding 770 110 Other 150 Output: Urine 4 22 0 Hemodialysis 1999 Other: Voiding Method Indwelling Catheter Indwelling Catheter ABP, PAP, CO, CI - Last Documented Arterial Blood Pressure 118/37 - Exam GENERAL EXAM: Revealed 64-year-old female obese, unresponsive to any stimuli, intubated and mechanically ventilated. HEAD: Normocephalic/atraumatic. EYES: Normal reaction of pupils, equal size. Conjunctiva pink, sclera white. NOSE: Clear with pink turbinates. THROAT: No erythema or exudates. NECK: No masses, no JVD, no thyroid enlargement, no adenopathy. CHEST: No chest wall deformity. Symmetrical expansion. LUNGS: Crackles at the bases no rhonchi and no wheezes. CVS: Regular rate and rhythm, normal S1 and S2, no gallops, no murmurs, no rubs ABDOMEN: Obese soft nontender no megaly no rebound. EXTREMITIES: 2+ bipedal edema. SKIN: No rashes CENTRAL NERVOUS SYSTEM: Unresponsive, to any stimuli, patient is comatose. - Labs CBC & Chem 7: 02/24/21 04:10 02/24/21 04:10 Labs: Abnormal Lab Results - Last 24 Hours (Table) 02/23/21 02/23/21 02/23/21 Range/Units 12:59 14:27 16:16 WBC (3.8-10.6) k/uL RBC (3.80-5.40) m/uL Hgb (11.4-16.0) gm/dL Hct (34.0-46.0) % RDW (11.5-15.5) % Neutrophils # (1.3-7.7) k/uL ABG pH (7.35-7.45) ABG pCO2 (35-45) mmHg ABG HCO3 (21-25) mmol/L ABG Total CO2 (19-24) mmol/L ABG O2 Saturation (94-97) % Chloride (98-107) mmol/L BUN (7-17) mg/dL Creatinine (0.52-1.04) mg/dL Glucose (74-99) mg/dL POC Glucose (mg/dL) 127 H 176 H 186 H (75-99) mg/dL Calcium (8.4-10.2) mg/dL AST (14-36) U/L ALT (4-34) U/L Alkaline Phosphatase (38-126) U/L Total Protein (6.3-8.2) g/dL Albumin (3.5-5.0) g/dL 02/23/21 02/23/21 02/23/21 Range/Units 17:52 20:53 22:19 WBC (3.8-10.6) k/uL RBC (3.80-5.40) m/uL Hgb (11.4-16.0) gm/dL Hct (34.0-46.0) % RDW (11.5-15.5) % Neutrophils # (1.3-7.7) k/uL ABG pH (7.35-7.45) ABG pCO2 (35-45) mmHg ABG HCO3 (21-25) mmol/L ABG Total CO2 (19-24) mmol/L ABG O2 Saturation (94-97) % Chloride (98-107) mmol/L BUN (7-17) mg/dL Creatinine (0.52-1.04) mg/dL Glucose (74-99) mg/dL POC Glucose (mg/dL) 186 H 175 H 169 H (75-99) mg/dL Calcium (8.4-10.2) mg/dL AST (14-36) U/L ALT (4-34) U/L Alkaline Phosphatase (38-126) U/L Total Protein (6.3-8.2) g/dL Albumin (3.5-5.0) g/dL 02/24/21 02/24/21 02/24/21 Range/Units 00:12 02:04 04:10 WBC (3.8-10.6) k/uL RBC (3.80-5.40) m/uL Hgb (11.4-16.0) gm/dL Hct (34.0-46.0) % RDW (11.5-15.5) % Neutrophils # (1.3-7.7) k/uL ABG pH (7.35-7.45) ABG pCO2 (35-45) mmHg ABG HCO3 (21-25) mmol/L ABG Total CO2 (19-24) mmol/L ABG O2 Saturation (94-97) % Chloride (98-107) mmol/L BUN (7-17) mg/dL Creatinine (0.52-1.04) mg/dL Glucose (74-99) mg/dL POC Glucose (mg/dL) 167 H 168 H 178 H (75-99) mg/dL Calcium (8.4-10.2) mg/dL AST (14-36) U/L ALT (4-34) U/L Alkaline Phosphatase (38-126) U/L Total Protein (6.3-8.2) g/dL Albumin (3.5-5.0) g/dL 02/24/21 02/24/21 02/24/21 Range/Units 04:10 04:10 05:44 WBC 13.1 H (3.8-10.6) k/uL RBC 2.76 L (3.80-5.40) m/uL Hgb 8.0 L (11.4-16.0) gm/dL Hct 25.9 L (34.0-46.0) % RDW 17.0 H (11.5-15.5) % Neutrophils # 10.8 H (1.3-7.7) k/uL ABG pH (7.35-7.45) ABG pCO2 (35-45) mmHg ABG HCO3 (21-25) mmol/L ABG Total CO2 (19-24) mmol/L ABG O2 Saturation (94-97) % Chloride 111 H (98-107) mmol/L BUN 73 H (7-17) mg/dL Creatinine 4.06 H (0.52-1.04) mg/dL Glucose 169 H (74-99) mg/dL POC Glucose (mg/dL) 155 H (75-99) mg/dL Calcium 7.0 L (8.4-10.2) mg/dL AST 170 H (14-36) U/L ALT 37 H (4-34) U/L Alkaline Phosphatase 315 H (38-126) U/L Total Protein 5.1 L (6.3-8.2) g/dL Albumin 2.1 L (3.5-5.0) g/dL 02/24/21 02/24/21 02/24/21 Range/Units 06:24 08:04 10:09 WBC (3.8-10.6) k/uL RBC (3.80-5.40) m/uL Hgb (11.4-16.0) gm/dL Hct (34.0-46.0) % RDW (11.5-15.5) % Neutrophils # (1.3-7.7) k/uL ABG pH 7.33 L (7.35-7.45) ABG pCO2 49 H (35-45) mmHg ABG HCO3 26 H (21-25) mmol/L ABG Total CO2 27 H (19-24) mmol/L ABG O2 Saturation 97.4 H (94-97) % Chloride (98-107) mmol/L BUN (7-17) mg/dL Creatinine (0.52-1.04) mg/dL Glucose (74-99) mg/dL POC Glucose (mg/dL) 155 H 157 H (75-99) mg/dL Calcium (8.4-10.2) mg/dL AST (14-36) U/L ALT (4-34) U/L Alkaline Phosphatase (38-126) U/L Total Protein (6.3-8.2) g/dL Albumin (3.5-5.0) g/dL 02/24/21 Range/Units 11:46 WBC (3.8-10.6) k/uL RBC (3.80-5.40) m/uL Hgb (11.4-16.0) gm/dL Hct (34.0-46.0) % RDW (11.5-15.5) % Neutrophils # (1.3-7.7) k/uL ABG pH (7.35-7.45) ABG pCO2 (35-45) mmHg ABG HCO3 (21-25) mmol/L ABG Total CO2 (19-24) mmol/L ABG O2 Saturation (94-97) % Chloride (98-107) mmol/L BUN (7-17) mg/dL Creatinine (0.52-1.04) mg/dL Glucose (74-99) mg/dL POC Glucose (mg/dL) 120 H (75-99) mg/dL Calcium (8.4-10.2) mg/dL AST (14-36) U/L ALT (4-34) U/L Alkaline Phosphatase (38-126) U/L Total Protein (6.3-8.2) g/dL Albumin (3.5-5.0) g/dL Microbiology - Last 24 Hours (Table) 02/20/21 09:01 Blood Culture Gram Stain - Final Blood Blood Culture - Final Staphylococcus aureus Assessment and Plan Assessment: Impression: Acute hypoxic respiratory failure secondary to cardiac arrest with prolonged downtime of 34 minutes until return of spontaneous circulation. Intubated on 02/13 , extubated on 02/16 reintubated on 02/17 and he remains intubated and unresponsive. Possible septic shock secondary to MSSA bacteremia patient remains on antibiotics. Did receive vancomycin she is now on cefazolin had elevated pro calcitonin level. Required pressors for low blood pressure. Suspect acute metabolic encephalopathy and anoxic brain injury Acute anterior wall myocardial infarction status post LAD the stenting on 02/13 Type 2 diabetes Benign essential hypertension Hypothyroidism Morbid obesity History of coronary artery disease New-onset atrial fibrillation History of marijuana smoking Recommendation: Continue ventilatory support, FiO2 had to be increased up to 100% today. I believe the patient is developing worsening pulmonary edema Continue to hold sedation to assess mental status off sedation Continue dialysis Continue present ventilator settings he is now on assist control rate of 28th of volume 400 FiO2 50% and PEEP of 15, normal for weaning at this point. Continue antibiotics for possible cultures, placed on cefazolin. Infectious disease on the case. Neurology is assessing her neurological status daily Patient remains critically ill Continue GI and DVT prophylaxis. Prognosis is guarded Critical care time is over 30 minutes. Time with Patient: Greater than 30
--- NOTE | 2021-02-24 12:28 | P.PN ---
Subjective Progress Note Date: 02/24/21 Follow-up for acute kidney injury on dialysis. Levo fed and high vent settings. Seen urine dialysis, tolerating well Objective - Vital Signs Vital signs: Vital Signs Temp 99.8 F H 02/24/21 08:00 Pulse 112 H 02/24/21 12:01 Resp 32 H 02/24/21 10:00 BP 135/64 02/24/21 07:00 Pulse Ox 97 02/24/21 10:00 Intake & Output 02/23/21 02/24/21 02/24/21 18:59 06:59 18:59 Intake Total 1281.238 553.079 28.668 Output Total 2004 22 0 Balance -722.762 531.079 28.668 Intake: IV 276 359 26 Kefzol 50 PRESSURE BAGS Sodium 36 69 6 chloride 0.9 Sodium Chloride 0.9% 1, 240 240 20 000 ml @ 20 mls/hr IV . Q24H [facility] Rx#:[id number] Intake, IV Titration 85.238 84.079 2.668 Amount Insulin Regular 100 unit 57.992 64.800 In Sodium Chloride 0.9% 100 ml @ Per Protocol IV .Q0M [facility] Rx#:[id number] Norepinephrine 32 mg In 27.246 19.279 2.668 Sodium Chloride 0.9% 218 ml @ 0.05 MCG/KG/MIN 3. 202 mls/hr IV .Q24H [facility] Rx#:[id number] Tube Feeding 770 110 Other 150 Output: Urine 4 22 0 Hemodialysis 2000 Other: Voiding Method Indwelling Catheter Indwelling Catheter ABP, PAP, CO, CI - Last Documented Arterial Blood Pressure 118/37 - Exam No acute distress Intubated on ventilator Edema - Labs CBC & Chem 7: 02/24/21 04:10 02/24/21 04:10 Labs: Abnormal Lab Results - Last 24 Hours (Table) 02/23/21 02/23/21 02/23/21 Range/Units 12:59 14:27 16:16 WBC (3.8-10.6) k/uL RBC (3.80-5.40) m/uL Hgb (11.4-16.0) gm/dL Hct (34.0-46.0) % RDW (11.5-15.5) % Neutrophils # (1.3-7.7) k/uL ABG pH (7.35-7.45) ABG pCO2 (35-45) mmHg ABG HCO3 (21-25) mmol/L ABG Total CO2 (19-24) mmol/L ABG O2 Saturation (94-97) % Chloride (98-107) mmol/L BUN (7-17) mg/dL Creatinine (0.52-1.04) mg/dL Glucose (74-99) mg/dL POC Glucose (mg/dL) 127 H 176 H 186 H (75-99) mg/dL Calcium (8.4-10.2) mg/dL AST (14-36) U/L ALT (4-34) U/L Alkaline Phosphatase (38-126) U/L Total Protein (6.3-8.2) g/dL Albumin (3.5-5.0) g/dL 02/23/21 02/23/21 02/23/21 Range/Units 17:52 20:53 22:19 WBC (3.8-10.6) k/uL RBC (3.80-5.40) m/uL Hgb (11.4-16.0) gm/dL Hct (34.0-46.0) % RDW (11.5-15.5) % Neutrophils # (1.3-7.7) k/uL ABG pH (7.35-7.45) ABG pCO2 (35-45) mmHg ABG HCO3 (21-25) mmol/L ABG Total CO2 (19-24) mmol/L ABG O2 Saturation (94-97) % Chloride (98-107) mmol/L BUN (7-17) mg/dL Creatinine (0.52-1.04) mg/dL Glucose (74-99) mg/dL POC Glucose (mg/dL) 186 H 175 H 169 H (75-99) mg/dL Calcium (8.4-10.2) mg/dL AST (14-36) U/L ALT (4-34) U/L Alkaline Phosphatase (38-126) U/L Total Protein (6.3-8.2) g/dL Albumin (3.5-5.0) g/dL 02/24/21 02/24/21 02/24/21 Range/Units 00:12 02:04 04:10 WBC (3.8-10.6) k/uL RBC (3.80-5.40) m/uL Hgb (11.4-16.0) gm/dL Hct (34.0-46.0) % RDW (11.5-15.5) % Neutrophils # (1.3-7.7) k/uL ABG pH (7.35-7.45) ABG pCO2 (35-45) mmHg ABG HCO3 (21-25) mmol/L ABG Total CO2 (19-24) mmol/L ABG O2 Saturation (94-97) % Chloride (98-107) mmol/L BUN (7-17) mg/dL Creatinine (0.52-1.04) mg/dL Glucose (74-99) mg/dL POC Glucose (mg/dL) 167 H 168 H 178 H (75-99) mg/dL Calcium (8.4-10.2) mg/dL AST (14-36) U/L ALT (4-34) U/L Alkaline Phosphatase (38-126) U/L Total Protein (6.3-8.2) g/dL Albumin (3.5-5.0) g/dL 02/24/21 02/24/21 02/24/21 Range/Units 04:10 04:10 05:44 WBC 13.1 H (3.8-10.6) k/uL RBC 2.76 L (3.80-5.40) m/uL Hgb 8.0 L (11.4-16.0) gm/dL Hct 25.9 L (34.0-46.0) % RDW 17.0 H (11.5-15.5) % Neutrophils # 10.8 H (1.3-7.7) k/uL ABG pH (7.35-7.45) ABG pCO2 (35-45) mmHg ABG HCO3 (21-25) mmol/L ABG Total CO2 (19-24) mmol/L ABG O2 Saturation (94-97) % Chloride 111 H (98-107) mmol/L BUN 73 H (7-17) mg/dL Creatinine 4.06 H (0.52-1.04) mg/dL Glucose 169 H (74-99) mg/dL POC Glucose (mg/dL) 155 H (75-99) mg/dL Calcium 7.0 L (8.4-10.2) mg/dL AST 170 H (14-36) U/L ALT 37 H (4-34) U/L Alkaline Phosphatase 315 H (38-126) U/L Total Protein 5.1 L (6.3-8.2) g/dL Albumin 2.1 L (3.5-5.0) g/dL 02/24/21 02/24/21 02/24/21 Range/Units 06:24 08:04 10:09 WBC (3.8-10.6) k/uL RBC (3.80-5.40) m/uL Hgb (11.4-16.0) gm/dL Hct (34.0-46.0) % RDW (11.5-15.5) % Neutrophils # (1.3-7.7) k/uL ABG pH 7.33 L (7.35-7.45) ABG pCO2 49 H (35-45) mmHg ABG HCO3 26 H (21-25) mmol/L ABG Total CO2 27 H (19-24) mmol/L ABG O2 Saturation 97.4 H (94-97) % Chloride (98-107) mmol/L BUN (7-17) mg/dL Creatinine (0.52-1.04) mg/dL Glucose (74-99) mg/dL POC Glucose (mg/dL) 155 H 157 H (75-99) mg/dL Calcium (8.4-10.2) mg/dL AST (14-36) U/L ALT (4-34) U/L Alkaline Phosphatase (38-126) U/L Total Protein (6.3-8.2) g/dL Albumin (3.5-5.0) g/dL 02/24/21 Range/Units 11:46 WBC (3.8-10.6) k/uL RBC (3.80-5.40) m/uL Hgb (11.4-16.0) gm/dL Hct (34.0-46.0) % RDW (11.5-15.5) % Neutrophils # (1.3-7.7) k/uL ABG pH (7.35-7.45) ABG pCO2 (35-45) mmHg ABG HCO3 (21-25) mmol/L ABG Total CO2 (19-24) mmol/L ABG O2 Saturation (94-97) % Chloride (98-107) mmol/L BUN (7-17) mg/dL Creatinine (0.52-1.04) mg/dL Glucose (74-99) mg/dL POC Glucose (mg/dL) 120 H (75-99) mg/dL Calcium (8.4-10.2) mg/dL AST (14-36) U/L ALT (4-34) U/L Alkaline Phosphatase (38-126) U/L Total Protein (6.3-8.2) g/dL Albumin (3.5-5.0) g/dL Microbiology - Last 24 Hours (Table) 02/20/21 09:01 Blood Culture Gram Stain - Final Blood Blood Culture - Final Staphylococcus aureus Assessment and Plan Assessment: #1 oliguric acute kidney injury secondary to hemodynamic from cardiopulmonary arrest and septic ATN. #2 ventilator-dependent respiratory failure #3 volume overload #4 cardiogenic/septic shock #5 metabolic acidosis Plan: #1 on daily hemodialysis for volume. 3 L UF today. #2 for holiday give a break tomorrow and plan again for Saturday. #3 ICU care
--- NOTE | 2021-02-24 12:46 | P.PN ---
Subjective Progress Note Date: 02/24/21 The patient is seen at bedside and per the nurse the patient is about the same and no neurological improvement. She continues to be off sedation. Today she is getting repeat dialysis. She continues to be on Norepinephrine. Objective - Vital Signs Vital signs: Vital Signs Temp 99.8 F H 02/24/21 08:00 Pulse 112 H 02/24/21 12:01 Resp 32 H 02/24/21 10:00 BP 135/64 02/24/21 07:00 Pulse Ox 97 02/24/21 10:00 Intake & Output 02/23/21 02/24/21 02/24/21 18:59 06:59 18:59 Intake Total 1281.238 553.079 28.668 Output Total 2004 22 0 Balance -722.762 531.079 28.668 Weight 149.9 kg Intake: IV 276 359 26 Kefzol 50 PRESSURE BAGS Sodium 36 69 6 chloride 0.9 Sodium Chloride 0.9% 1, 240 240 20 000 ml @ 20 mls/hr IV . Q24H ADRIANA Rx#:[id number] Intake, IV Titration 85.238 84.079 2.668 Amount Insulin Regular 100 unit 57.992 64.800 In Sodium Chloride 0.9% 100 ml @ Per Protocol IV .Q0M ADRIANA Rx#:[id number] Norepinephrine 32 mg In 27.246 19.279 2.668 Sodium Chloride 0.9% 218 ml @ 0.05 MCG/KG/MIN 3. 202 mls/hr IV .Q24H ADRIANA Rx#:[id number] Tube Feeding 770 110 Other 150 Output: Urine 4 22 0 Hemodialysis 1999 Other: Voiding Method Indwelling Catheter Indwelling Catheter ABP, PAP, CO, CI - Last Documented Arterial Blood Pressure 118/37 - Exam GENERAL: The patient is morbid obese woman, lying in bed and does not seem in acute distress. LUNG: Clear to auscultation bilaterally no wheezing noted throughout. Not labored breathing. Intubated on ventilator. NEUROLOGICAL: Limited because of condition. Last IV sedation was on 02/20/21 at 8am. Higher mental function: The patient is comatose GCS 7 ( E1, VT1, M5). The patient is not verbally responsive or following commands. Cranial nerves: I manually opened her eyes. The primary gaze is midline. The pupils are round, right is 2-3mm and left is 3-4mm and reactive to light. Positive corneal reflex bilaterally. No facial weaknesss. Is breathing over t he vent. Negative gag reflex. Motor: The strength is hard to assess because of her condition. But was minimally withdrawing to painful stimuli over the left upper extremity and left lower extremity. Normal tone and bulk. Cerebellum: Could not assess. Sensation: Could not assess light touch but seem to notice painful stimuli over the left side. WORK-UP: * AST of 123 which is trending up while ALTs 25.-->170/37 * Ammonia level 11. * His creatnine is trending up. On presentation it was 0.91. Most current is 4.06 * Ionized calcium is 4.5. * Patient white blood cell is trending up is 23.0 * Computed tomography scan of head 02/14/21: Is reported as degenerative and nonspecific white matter changes are nonspecific. * Repeat CT head on 02/21/21: No acute intracranial hemorrhage or midline shift. There is mild diffuse age-related cerebral atrophy and chronic small vessel ischemic change redomenstarted without significant interval change. * EEG was abnormal due to background slowing of mild to moderate degree. This is suggestive of generalized cerebral dysfunction as can be seen with toxic metabolic encephalopathy or from diffuse structural brain abnormality. No epileptiform activity was seen. * 2-D echo was reported as left ventricular size is normal. Mild concentric lef t ventricular hypertrophy. Ejection fraction of 50-55%. - Labs CBC & Chem 7: 02/24/21 04:10 02/24/21 04:10 Labs: Abnormal Lab Results - Last 24 Hours (Table) 02/23/21 02/23/21 02/23/21 Range/Units 12:59 14:27 16:16 WBC (3.8-10.6) k/uL RBC (3.80-5.40) m/uL Hgb (11.4-16.0) gm/dL Hct (34.0-46.0) % RDW (11.5-15.5) % Neutrophils # (1.3-7.7) k/uL ABG pH (7.35-7.45) ABG pCO2 (35-45) mmHg ABG HCO3 (21-25) mmol/L ABG Total CO2 (19-24) mmol/L ABG O2 Saturation (94-97) % Chloride (98-107) mmol/L BUN (7-17) mg/dL Creatinine (0.52-1.04) mg/dL Glucose (74-99) mg/dL POC Glucose (mg/dL) 127 H 176 H 186 H (75-99) mg/dL Calcium (8.4-10.2) mg/dL AST (14-36) U/L ALT (4-34) U/L Alkaline Phosphatase (38-126) U/L Total Protein (6.3-8.2) g/dL Albumin (3.5-5.0) g/dL 02/23/21 02/23/21 02/23/21 Range/Units 17:52 20:53 22:19 WBC (3.8-10.6) k/uL RBC (3.80-5.40) m/uL Hgb (11.4-16.0) gm/dL Hct (34.0-46.0) % RDW (11.5-15.5) % Neutrophils # (1.3-7.7) k/uL ABG pH (7.35-7.45) ABG pCO2 (35-45) mmHg ABG HCO3 (21-25) mmol/L ABG Total CO2 (19-24) mmol/L ABG O2 Saturation (94-97) % Chloride (98-107) mmol/L BUN (7-17) mg/dL Creatinine (0.52-1.04) mg/dL Glucose (74-99) mg/dL POC Glucose (mg/dL) 186 H 175 H 169 H (75-99) mg/dL Calcium (8.4-10.2) mg/dL AST (14-36) U/L ALT (4-34) U/L Alkaline Phosphatase (38-126) U/L Total Protein (6.3-8.2) g/dL Albumin (3.5-5.0) g/dL 02/24/21 02/24/21 02/24/21 Range/Units 00:12 02:04 04:10 WBC (3.8-10.6) k/uL RBC (3.80-5.40) m/uL Hgb (11.4-16.0) gm/dL Hct (34.0-46.0) % RDW (11.5-15.5) % Neutrophils # (1.3-7.7) k/uL ABG pH (7.35-7.45) ABG pCO2 (35-45) mmHg ABG HCO3 (21-25) mmol/L ABG Total CO2 (19-24) mmol/L ABG O2 Saturation (94-97) % Chloride (98-107) mmol/L BUN (7-17) mg/dL Creatinine (0.52-1.04) mg/dL Glucose (74-99) mg/dL POC Glucose (mg/dL) 167 H 168 H 178 H (75-99) mg/dL Calcium (8.4-10.2) mg/dL AST (14-36) U/L ALT (4-34) U/L Alkaline Phosphatase (38-126) U/L Total Protein (6.3-8.2) g/dL Albumin (3.5-5.0) g/dL 02/24/21 02/24/21 02/24/21 Range/Units 04:10 04:10 05:44 WBC 13.1 H (3.8-10.6) k/uL RBC 2.76 L (3.80-5.40) m/uL Hgb 8.0 L (11.4-16.0) gm/dL Hct 25.9 L (34.0-46.0) % RDW 17.0 H (11.5-15.5) % Neutrophils # 10.8 H (1.3-7.7) k/uL ABG pH (7.35-7.45) ABG pCO2 (35-45) mmHg ABG HCO3 (21-25) mmol/L ABG Total CO2 (19-24) mmol/L ABG O2 Saturation (94-97) % Chloride 111 H (98-107) mmol/L BUN 73 H (7-17) mg/dL Creatinine 4.06 H (0.52-1.04) mg/dL Glucose 169 H (74-99) mg/dL POC Glucose (mg/dL) 155 H (75-99) mg/dL Calcium 7.0 L (8.4-10.2) mg/dL AST 170 H (14-36) U/L ALT 37 H (4-34) U/L Alkaline Phosphatase 315 H (38-126) U/L Total Protein 5.1 L (6.3-8.2) g/dL Albumin 2.1 L (3.5-5.0) g/dL 02/24/21 02/24/21 02/24/21 Range/Units 06:24 08:04 10:09 WBC (3.8-10.6) k/uL RBC (3.80-5.40) m/uL Hgb (11.4-16.0) gm/dL Hct (34.0-46.0) % RDW (11.5-15.5) % Neutrophils # (1.3-7.7) k/uL ABG pH 7.33 L (7.35-7.45) ABG pCO2 49 H (35-45) mmHg ABG HCO3 26 H (21-25) mmol/L ABG Total CO2 27 H (19-24) mmol/L ABG O2 Saturation 97.4 H (94-97) % Chloride (98-107) mmol/L BUN (7-17) mg/dL Creatinine (0.52-1.04) mg/dL Glucose (74-99) mg/dL POC Glucose (mg/dL) 155 H 157 H (75-99) mg/dL Calcium (8.4-10.2) mg/dL AST (14-36) U/L ALT (4-34) U/L Alkaline Phosphatase (38-126) U/L Total Protein (6.3-8.2) g/dL Albumin (3.5-5.0) g/dL 02/24/21 Range/Units 11:46 WBC (3.8-10.6) k/uL RBC (3.80-5.40) m/uL Hgb (11.4-16.0) gm/dL Hct (34.0-46.0) % RDW (11.5-15.5) % Neutrophils # (1.3-7.7) k/uL ABG pH (7.35-7.45) ABG pCO2 (35-45) mmHg ABG HCO3 (21-25) mmol/L ABG Total CO2 (19-24) mmol/L ABG O2 Saturation (94-97) % Chloride (98-107) mmol/L BUN (7-17) mg/dL Creatinine (0.52-1.04) mg/dL Glucose (74-99) mg/dL POC Glucose (mg/dL) 120 H (75-99) mg/dL Calcium (8.4-10.2) mg/dL AST (14-36) U/L ALT (4-34) U/L Alkaline Phosphatase (38-126) U/L Total Protein (6.3-8.2) g/dL Albumin (3.5-5.0) g/dL Microbiology - Last 24 Hours (Table) 02/20/21 09:01 Blood Culture Gram Stain - Final Blood Blood Culture - Final Staphylococcus aureus Assessment and Plan Assessment: * Altered mental status due to multifactorial: anoxic encephalopathy due to cardiac arrest (34 minutes), septic encephalopathy and component of toxic- metabolic encephalopathy (her creatine is trending up, with slight elevation of AST). Off sedation since 02/20/21 at 8am. * Status post cardiac arrest, with the downtime of 34 minutes. Patient was extubated 02/16/2021 doing quite well, following commands appropriately, and then re-intubated on 02/17/2021 due to respiratory distress. * Epic shock secondary due to methicillin sensitive staph aureus bacteremia/pneumonia. Is on antibiotic and pressors. Most current vital is hypotensive. * Acute kidney injury and is trending upward and is receiving dialysis (3rd day of dialysis) * Mild hepatopathy * Acute STEMI, * New onset atrial fibrillation vertigo to normal sinus rhythm. * History of Diabetes * History of hypothyroidism * Hypertension * CAD Plan: Had previous EEG and no seizure or epileptiform activity seen on prior EEG (02/15/21). Repeat EEG will likely be done on 02/24/21 Q2 neuro checks. Nephrology team in on board. Please avoid any hypotensive episode we'll defer the management to the primary and ICU team. Defer the rest of the medical management to the primary ICU team CONDITION: Is very guarded. The plan is discussed with the patient's nurse. Dominic Chávez M.D. Neuro-Hospitalist Time with Patient: Less than 30
[2021-02-24 14:07] LABS: Glucose,Whole Blood 160 mg/dL (75-99)
--- NOTE | 2021-02-24 15:02 | PN ---
PROGRESS NOTE DATE OF SERVICE: 02/24/2021 REASON FOR FOLLOWUP: MSSA bacteremia and pneumonia. INTERVAL HISTORY: The patient is afebrile. The patient is hemodynamically stable, requiring pressor dialysis and no significant purulent secretions through the ET, diarrhea or any other changes reported by the nursing staff. PHYSICAL EXAMINATION: Blood pressure 113/43, pulse of , temperature of 99.1. She is 98% on 80% FiO2. General description is a middle-aged female intubated on the vent. Respiratory system: Unlabored breathing, decreased intensity of breath sounds. No wheeze. Heart S1, S2. Regular rate and rhythm. Abdomen soft, no tenderness. LABS: Hemoglobin is 8, white count , creatinine 4.06. Blood cultures repeat were ordered; not done. DIAGNOSTIC IMPRESSION AND PLAN: Patient with MSSA bacteremia; source possible pneumonia; however, bacteremia is concerning. Repeat cultures were ordered; not done. Will repeat blood cultures. Continue with cefazolin. Condition remains critical with a guarded prognosis. MMODL / IJN: [id number] /
[2021-02-24 15:55] LABS: Glucose,Whole Blood 162 mg/dL (75-99)
--- NOTE | 2021-02-24 15:56 | PN ---
PROGRESS NOTE Mrs. Hale is admitted to the hospital with acute myocardial infarction and cardiac arrest. She was admitted on February 13. The patient had a prolonged resuscitation effort before coming to the hospital. Patient is still intubated and sedated. Patient's blood pressure is running about 117/43, heart rate in the 120s, respirations are 23. She is ventilated. Patient is still on aspirin, Lipitor, Lovenox mg, Synthroid, metoprolol as needed, and also on norepinephrine drip. She is also on the Brilinta along with the aspirin. Her lab values today showed hemoglobin of 8, white count is 13.5. Her ABG showed a pH of 7.33, pCO2 of 49 and pO2 95. Her creatinine is 4.06. AST and ALT are mildly elevated. Physical examination: The patient was not physically examined. Information was gathered from architectural sales consultant notes. FINAL IMPRESSION: 1. Status post cardiac arrest with hypoxic encephalopathy. 2. Respiratory failure, mechanical ventilation dependent. 3. Anemia. 4. Renal failure. PLAN: Continue with supportive measures. Prognosis appears to be guarded. Will continue to follow as needed. MMODL / IJN: [id number] /
[2021-02-24 18:44] LABS: Glucose,Whole Blood 179 mg/dL (75-99)
[2021-02-24] MEDS: SODIUM CHLORIDE 0.9% 1,000 ML IV SCH (19:41)
[2021-02-24 19:55] LABS: Glucose,Whole Blood 161 mg/dL (75-99)
[2021-02-24] MEDS: ATORVASTATIN 80 MG TAB PO SCH (20:03)
--- NOTE | 2021-02-24 20:24 | P.PN ---
Subjective This is a pleasant 65 years old female with past medical history of Coronary Artery Disease , Diabetes Mellitus, GERD, Hypertension, hypothyroidism. She is a patient of Dr. Brambila Patient presents with unresponsiveness and and cardiac arrest. CPR was ongoing through EMS, patient was found in ventricular fibrillation per EMS, Pt was given 5 epi, 5 shocks and 450mg of Amniodarone. Pt did have ROSC for a few minutes but when arriving to ER no pulse present. In the emergency room patient got intubated and placed on mechanical ventilation. Initial vitals showed temperature 97.3, heart rate 79, breathing rate 16, blood pressure 118/71 and 92/62 and she was saturating 96% on mechanical ventilation Labs were showing leukocytosis of 20.5 K. INR 2.7 PH 7.2, pCO2 47 and pO2 59. Sodium 137, low potassium 2.8, normal creatinine 0.9. Glucose elevated to 65. Liver enzymes slightly elevated with AST 83 and ALT 36. Trending up troponin 0.02, 9.4 and 23.9. Coronavirus chest x-ray: Status post intubation. There may be underlying pulmonary edema or pneumonia. Repeat fracture noted on the left Nondetected. EKG showing ST elevation in anterior septal leads V1 to V4 Patient was taken to emergent cardiac cath and she underwent cardiac cathete rization with PCI to the totally occluded proximal LAD. After the procedure patient was placed on aspirin, Brillinta ,and beta beni, GONZALEZ inhibitor and statin Today patient is still intubated in the ICU, and on mechanical ventilation. She has PEEP of 10, FiO2 of 40%, tidal volume 375, she has sinus rhythm at 90 bpm, she has a Mcneil and OG tube. She has normal saline running at 50 mL per hour 02/15/2021 ICU intubated and sedated with pulmonary/critical care team followed closely Patient failed sedation trial yesterday and today. Neurology team on the case PEG showing no epileptiform discharge Ejection fraction is 50-55% Chest x-ray no change from yesterday Labs reviewed, WBC down to 14 K, INR down to normal at 1.5 Patient remains on aspirin and Brilinta Continue with gentle hydration, lisinopril, metoprolol and Aldactone with cardiology and nephrology followed the patient closely 02/16/2021 Patient remains in the ICU intubated and sedated. She is undergoing sedation holiday today as well with possible extubation that are on. She is developing fever of 100.4, her WBCs 15 K. EEG showing no epileptiform discharge. Chest x-ray showing increased perihilar opacity. There are sputum culture, proteincalcitonin. Patient is kept on aspirin and Brilinta and gentle hydration. 02/17/2021 Yesterday patient got extubated and she was doing relatively well until during the night when her respiratory status Worsened and by the morning she has to be intubated again for tachypnea and tachycardia and now she is again on mechanical ventilation. Also patient is a spiking a fever and 102 most likely secondary to pneumonia and patient was started on cefepime with culture has been requested from blood and sputum. 02/18/2021 Today patient still intubated and sedated, she still on mechanical ventilation. With pulmonary/critical care team monitor her closely and following her She is developing pneumonia with sepsis status progressed into septic shock, blood culture and sputum culture are growing staph aureus pending final culture results patient was started on IV vancomycin as well as cefepime. her blood pressure started dropping and she needed levothroid, her creatinine trending up and she is developing oliguria as per last hour she made only 5 ml/h when i checked with the night nurse. therefore 1 l liter of bolus is provided. her sugar is elevated more than 300 and if this not improving she might need to be started on insulin drip. her leukocytosis is at 14 k, creatinine trending up to 1.2. she still has a fever of 102 today. Remains on aspirin and Brilinta, pulmonary/critical care team and cardiology teams on the case 02/19/2021 Patient remains in critical condition needs mechanical ventilation on Levophed for her septic shock secondary to MSSA septicemia and pneumonia with positive sputum on blood culture Her antibiotics were adjusted today about pulmonary/critical care team into Levaquin while they discontinued cefepime and IV vancomycin. Patient still running high fever at 102. And she is becoming oliguric with acute kidney injury creatinine trending up to 2.7. Nephrology consult was obtained as she might need dialysis down the road if no improvement. Chest x-ray shows slight worsening on the right side or an changed. When I reviewed by myself. Antibiotics has just adjusted as above. Also she is on normal saline at 50 mm, insulin drip and pressors. Also she is on aspirin, Brilinta for her new ostomy 02/20/2021 Patient remains intubated and sedated in the ICU. She still in critical condition. She is currently in septic shock secondary to MSSA pneumonia and bacteremia. She's been covered with broad-spectrum antibiotics of Levaquin and cefepime. Continue with IV fluid normal sign 75 and pressors with levophed and vasopressin Also he is on insulin drip. Labs showed leukocytosis of 15.6. Creatinine trending up to 3.7 and patient is oliguric. Patient is started on hemodialysis today, second hemodialysis tomorrow 02/21/2021 Patients with septic shock secondary to MSSA pneumonia and septicemia status post cardiac arrest on arrival to the emergency room, resuscitated and currently intubated in the ICU. She developed oliguric renal failure undergoing hemodialysis. She was taken off sedation with no much response, therefore neurologist is involved and she is having negative CT of the brain. Plan to repeat EEG tomorrow Other than that she remains critically ill in the ICU and kept on broad-spectrum antibiotics with cefepime and Levaquin, aspirin and Brilinta Today DC'd her Levaquin Continue with insulin and drip 02/22/2021 Patient remains in septic shock and respiratory failure requiring intubation and mechanical ventilation. Several consultants on the case including pulmonary/critical care team, nephrology, cardiology, neurology. She still needs pressors. Patient has been afebrile for more than 48 hours but her blood culture showing persistent staff. She received 1 dose of IV vancomycin on the top of cefepime and Levaquin. Infectious disease team were consulted today. WBC is 15 K, creatinine 3.7 and she is undergoing hemodialysis today and tomorrow as she is anuric. Glucose controlled on insulin drip. Hemoglobin is stable at 8.0. She is on aspirin and Brilinta given her cardiac arrest upon admission. Prognosis remains guarded 02/23/2021 Patient critically air in the ICU with pulmonary/critical care team monitor her closely and help with vent management. It looks patient brain function is not showing good response while off sedation with neurology team on the case and recommended repeat EEG. Other than that she remains on FiO2 of 50%, she is tachypneic every 2 and afebrile. WBC today 14.7, creatinine 4.7. Hemoglobin 7.4. Antibiotics were adjusted to cefazolin today. Patient did not cut hemodialysis yesterday, she will Probably 1 today. Continue with aspirin Brilinta, with heavy repairer team on the case 02/24/2021 Patient is intubated and sedated. However she underwent an still with of sedation with no significant change in her mental status but the septum time she is septic with positive blood culture for staph, sensitive been covered with cefazolin. She still has a fever today of 100.5. Her FiO2 actually went up to 80% today. Distal tachypneic around 30. Chest x-ray showing worsening left lung infiltrate compared to yesterday. Neurology still in the process offices in mental status. Repeat EEG today is pending. She remains on cefazolin, aspirin and Brilinta. She's getting hemodialysis daily with nephrology team of the case Objective - Vital Signs Vital signs: Vital Signs Temp 99.1 F 02/24/21 14:25 Pulse 120 H 02/24/21 14:25 Resp 23 02/24/21 14:25 BP 117/43 02/24/21 14:25 Pulse Ox 98 02/24/21 13:00 Intake & Output 02/23/21 02/24/21 02/24/21 18:59 06:59 18:59 Intake Total 1281.238 553.079 265.118 Output Total 2003 3005 Balance -722.762 531.079 -2739.882 Weight 149.9 kg Intake: IV 276 359 226 Kefzol 50 PRESSURE BAGS Sodium 36 69 36 chloride 0.9 Sodium Chloride 0.9% 1, 240 240 140 000 ml @ 20 mls/hr IV . Q24H ADRIANA Rx#:[id number] ceFAZolin 2 gm In Sodium 50 Chloride 0.9% 50 ml @ 100 mls/hr IVPB Q12HR ADRIANA Rx #:[id number] Intake, IV Titration 85.238 84.079 39.118 Amount Insulin Regular 100 unit 57.992 64.800 36.45 In Sodium Chloride 0.9% 100 ml @ Per Protocol IV .Q0M ADRIANA Rx#:[id number] Norepinephrine 32 mg In 27.246 19.279 2.668 Sodium Chloride 0.9% 218 ml @ 0.05 MCG/KG/MIN 3. 202 mls/hr IV .Q24H ADRIANA Rx#:[id number] Tube Feeding 770 110 Other 150 Output: Urine 4 22 5 Hemodialysis 1999 3000 Other: Voiding Method Indwelling Catheter Indwelling Catheter ABP, PAP, CO, CI - Last Documented Arterial Blood Pressure 88/52 - Exam -GENERAL: The patient is sedated and intubated, not in any acute distress. morbidly obese HEENT: Pupils are round and equally reacting to light. EOMI. No scleral icterus. No conjunctival pallor. Normocephalic, atraumatic. No pharyngeal erythema. No thyromegaly. CARDIOVASCULAR: S1 and S2 present. No murmurs, rubs, or gallops. PULMONARY: Chest is clear to auscultation, no wheezing. ABDOMEN: Soft, nontender, nondistended, normoactive bowel sounds. No palpable organomegaly. MUSCULOSKELETAL: No joint swelling or deformity. EXTREMITIES: No cyanosis, clubbing, or pedal edema. NEUROLOGICAL: Gross neurological examination did not reveal any focal deficits. SKIN: No rashes. no petechiae. - Labs CBC & Chem 7: 02/24/21 04:10 02/24/21 04:10 Labs: Abnormal Lab Results - Last 24 Hours (Table) 02/23/21 02/23/21 02/23/21 Range/Units 16:16 17:52 20:53 WBC (3.8-10.6) k/uL RBC (3.80-5.40) m/uL Hgb (11.4-16.0) gm/dL Hct (34.0-46.0) % RDW (11.5-15.5) % Neutrophils # (1.3-7.7) k/uL ABG pH (7.35-7.45) ABG pCO2 (35-45) mmHg ABG HCO3 (21-25) mmol/L ABG Total CO2 (19-24) mmol/L ABG O2 Saturation (94-97) % Chloride (98-107) mmol/L BUN (7-17) mg/dL Creatinine (0.52-1.04) mg/dL Glucose (74-99) mg/dL POC Glucose (mg/dL) 186 H 186 H 175 H (75-99) mg/dL Calcium (8.4-10.2) mg/dL AST (14-36) U/L ALT (4-34) U/L Alkaline Phosphatase (38-126) U/L Total Protein (6.3-8.2) g/dL Albumin (3.5-5.0) g/dL 02/23/21 02/24/21 02/24/21 Range/Units 22:19 00:12 02:04 WBC (3.8-10.6) k/uL RBC (3.80-5.40) m/uL Hgb (11.4-16.0) gm/dL Hct (34.0-46.0) % RDW (11.5-15.5) % Neutrophils # (1.3-7.7) k/uL ABG pH (7.35-7.45) ABG pCO2 (35-45) mmHg ABG HCO3 (21-25) mmol/L ABG Total CO2 (19-24) mmol/L ABG O2 Saturation (94-97) % Chloride (98-107) mmol/L BUN (7-17) mg/dL Creatinine (0.52-1.04) mg/dL Glucose (74-99) mg/dL POC Glucose (mg/dL) 169 H 167 H 168 H (75-99) mg/dL Calcium (8.4-10.2) mg/dL AST (14-36) U/L ALT (4-34) U/L Alkaline Phosphatase (38-126) U/L Total Protein (6.3-8.2) g/dL Albumin (3.5-5.0) g/dL 02/24/21 02/24/21 02/24/21 Range/Units 04:10 04:10 04:10 WBC 13.1 H (3.8-10.6) k/uL RBC 2.76 L (3.80-5.40) m/uL Hgb 8.0 L (11.4-16.0) gm/dL Hct 25.9 L (34.0-46.0) % RDW 17.0 H (11.5-15.5) % Neutrophils # 10.8 H (1.3-7.7) k/uL ABG pH (7.35-7.45) ABG pCO2 (35-45) mmHg ABG HCO3 (21-25) mmol/L ABG Total CO2 (19-24) mmol/L ABG O2 Saturation (94-97) % Chloride 111 H (98-107) mmol/L BUN 73 H (7-17) mg/dL Creatinine 4.06 H (0.52-1.04) mg/dL Glucose 169 H (74-99) mg/dL POC Glucose (mg/dL) 178 H (75-99) mg/dL Calcium 7.0 L (8.4-10.2) mg/dL AST 170 H (14-36) U/L ALT 37 H (4-34) U/L Alkaline Phosphatase 315 H (38-126) U/L Total Protein 5.1 L (6.3-8.2) g/dL Albumin 2.1 L (3.5-5.0) g/dL 02/24/21 02/24/21 02/24/21 Range/Units 05:44 06:24 08:04 WBC (3.8-10.6) k/uL RBC (3.80-5.40) m/uL Hgb (11.4-16.0) gm/dL Hct (34.0-46.0) % RDW (11.5-15.5) % Neutrophils # (1.3-7.7) k/uL ABG pH 7.33 L (7.35-7.45) ABG pCO2 49 H (35-45) mmHg ABG HCO3 26 H (21-25) mmol/L ABG Total CO2 27 H (19-24) mmol/L ABG O2 Saturation 97.4 H (94-97) % Chloride (98-107) mmol/L BUN (7-17) mg/dL Creatinine (0.52-1.04) mg/dL Glucose (74-99) mg/dL POC Glucose (mg/dL) 155 H 155 H (75-99) mg/dL Calcium (8.4-10.2) mg/dL AST (14-36) U/L ALT (4-34) U/L Alkaline Phosphatase (38-126) U/L Total Protein (6.3-8.2) g/dL Albumin (3.5-5.0) g/dL 02/24/21 02/24/21 02/24/21 Range/Units 10:09 11:46 14:04 WBC (3.8-10.6) k/uL RBC (3.80-5.40) m/uL Hgb (11.4-16.0) gm/dL Hct (34.0-46.0) % RDW (11.5-15.5) % Neutrophils # (1.3-7.7) k/uL ABG pH (7.35-7.45) ABG pCO2 (35-45) mmHg ABG HCO3 (21-25) mmol/L ABG Total CO2 (19-24) mmol/L ABG O2 Saturation (94-97) % Chloride (98-107) mmol/L BUN (7-17) mg/dL Creatinine (0.52-1.04) mg/dL Glucose (74-99) mg/dL POC Glucose (mg/dL) 157 H 120 H 160 H (75-99) mg/dL Calcium (8.4-10.2) mg/dL AST (14-36) U/L ALT (4-34) U/L Alkaline Phosphatase (38-126) U/L Total Protein (6.3-8.2) g/dL Albumin (3.5-5.0) g/dL Microbiology - Last 24 Hours (Table) 02/21/21 09:35 Blood Culture Gram Stain - Final Blood Blood Culture - Final Staphylococcus aureus 02/20/21 09:01 Blood Culture Gram Stain - Final Blood Blood Culture - Final Staphylococcus aureus Assessment and Plan Assessment: Acute anteroseptal STEMI Cardiac arrest, status post ventricular fibrillation status post CPR and return of circulation Acute hypoxic respiratory failure needing intubation and mechanical ventilation Sepsis secondary to pneumonia with fever and leukocytosis, developing into septic shock secondary to MSSA in the sputum and blood Metabolic acidosis acute kidney injury with oliguria requiring hemodialysis unresponsiveness off sedation concerning for ischemic brain injury Possible pulmonary edema Leukocytosis, secondary to above Left fracture secondary to CPR Coagulopathy with INR 2.7 upon admission, resolved Hypertension Hypothyroidism Diabetes mellitus History of GERD History of coronary artery disease Morbidly obese. BMI 45.8 Plan: This is a 65 years old female who presents with STEMI and cardiac arrest status post CPR and intubation, underwent cardiac cath and PCI to LAD Continue with aspirin, brillinta Continue with Intubation and mechanical ventilation with pulmonary/critical care team consult with possible extubation. Pulmonary team Antibiotics were adjusted to cefepime. Nephrology consult. Continue with hemodialysis per her public records researcher Penal Officer on the case Neurologist consulted. Infectious disease consult Labs and medication were reviewed.. Continue same treatment. Continue with symptomatic treatment. Resume home medication. Monitor lytes and vitals. DVT and GI prophylaxis. Further recommendations as per clinical course of the patient DVT prophylaxis: Aspirin and brillinta GI Prophylaxis: Pepcid Prognosis is guarded
[2021-02-24 21:49] LABS: Glucose,Whole Blood 147 mg/dL (75-99)
[2021-02-25 00:24] LABS: Glucose,Whole Blood 164 mg/dL (75-99)
[2021-02-25] MEDS: IPRATROPIUM-ALBUTEROL 3 ML NEB INHALATION SCH ×6 (00:54→21:40)
[2021-02-25 02:04] LABS: Glucose,Whole Blood 166 mg/dL (75-99)
[2021-02-25 03:32] LABS: Glucose,Whole Blood 172 mg/dL (75-99)
[2021-02-25 04:09] LABS: Anisocytosis Slight; HCT 25.1 % (34.0-46.0); HGB 7.8 gm/dL (11.4-16.0); Hypochromasia Marked; MCH 29.3 pg (25.0-35.0); MCHC 30.9 g/dL (31.0-37.0); Mean Platelet Volume 9.6; Platelet Count 248 k/uL (150-450); RBC 2.64 m/uL (3.80-5.40); WBC 16.5 k/uL (3.8-10.6)
[2021-02-25 04:43] LABS: Albumin 2.2 g/dL (3.5-5.0); Calcium 7.1 mg/dL (8.4-10.2); Potassium 4.8 mmol/L (3.5-5.1); Total Bilirubin 0.4 mg/dL (0.2-1.3); Total Protein 5.3 g/dL (6.3-8.2)
[2021-02-25 06:21] LABS: ABG HCO3 25 mmol/L (21-25); ABG Oxygen Saturation 99.9 % (94-97); ABG PCO2 49 mmHg (35-45); ABG PH 7.32 (7.35-7.45); ABG PO2 171 mmHg (83-108); ABG TCO2 27 mmol/L (19-24); Allen Test Performed? Yes
[2021-02-25 06:23] LABS: Glucose,Whole Blood 176 mg/dL (75-99)
[2021-02-25] MEDS: LEVOTHYROXINE 100 MCG TAB PO SCH (06:34)
[2021-02-25 07:58] LABS: Glucose,Whole Blood 173 mg/dL (75-99)
--- NOTE | 2021-02-25 08:09 | XR ---
EXAMINATION TYPE: XR chest 1V DATE OF EXAM: 02/25/2021 COMPARISON: 02/24/2021 HISTORY: 65 years Female. STUDY INDICATION GIVEN: intubated . TECHNIQUE: AP chest radiograph IMPRESSION: Bilateral airspace opacities and left lower lobe atelectasis/near-complete collapse, slight improveme nt. No pneumothorax. There may be trace right effusion. No large effusion on the left. The cardiomediastinal silhouette is stable. Endotracheal tube in the midthoracic trachea. Left central venous catheter tip at the cavoatrial junc tion stable. Enteric tube courses into the stomach. Osseous structures are stable in comparison to the prior, noted right shoulder degenerative changes a nd slight right glenohumeral subluxation.
[2021-02-25] MEDS: INSULIN REGULAR 100 UNIT in SODIUM CHLORIDE 0.9% 100 ML IV SCH ×2 (08:29→21:15)
[2021-02-25] MEDS: PANTOPRAZOLE 40 MG/10 ML VIAL IVP SCH (08:35)
[2021-02-25] MEDS: CHLORHEXIDINE GLUCONATE 15 ML CUP MUCOUS MEM SCH ×3 (08:35→21:10)
[2021-02-25] MEDS: ENOXAPARIN 30 MG/0.3 ML SYRINGE SQ SCH (08:35)
[2021-02-25] MEDS: TICAGRELOR 90 MG TAB PO SCH ×2 (08:35→21:10)
[2021-02-25] MEDS: ASPIRIN 81 MG PO SCH (08:35)
--- NOTE | 2021-02-25 09:33 | EEG ---
ELECTROENCEPHALOGRAM REPORT CLINICAL HISTORY: This is a 65-year-old woman who continues to have altered mental status. The video EEG is obtained to evaluate for seizure epileptiform activity. RELEVANT MEDICATION: The patient is not on any antiepileptic drugs. EEG TYPE: A routine 21 channel EEG is performed with video using the 10/20 electrode system. DESCRIPTION: The patient is intubated on a ventilator. Awake state wakefulness is only obtained. During awake state, the background consists of diffuse nonrhythmic 4-5 hertz theta activity that is low to moderate voltage in activity and is intermixed with delta activity. There is no physiological stage 2 sleep activity. There is no focal slowing. There is moderate to significant bilateral frontal myogenic artifact. Interictal and ictal is none. ACTIVATION PROCEDURE: Photic stimulation and hyperventilation is not performed. CLINICAL INTERPRETATION: This is an abnormal routine EEG. The background slowing is suggestive of moderate to severe encephalopathy. There are no focal slowing, epileptiform discharge or seizure on the EEG. Clinical correlation is recommended. BLAKE / ZORAIDA: [id number] / YO
--- NOTE | 2021-02-25 10:18 | P.PN ---
Subjective This is a pleasant 65 years old female with past medical history of Coronary Artery Disease , Diabetes Mellitus, GERD, Hypertension, hypothyroidism. She is a patient of Dr. Brambila Patient presents with unresponsiveness and and cardiac arrest. CPR was ongoing through EMS, patient was found in ventricular fibrillation per EMS, Pt was given 5 epi, 5 shocks and 450mg of Amniodarone. Pt did have ROSC for a few minutes but when arriving to ER no pulse present. In the emergency room patient got intubated and placed on mechanical ventilation. Initial vitals showed temperature 97.3, heart rate 79, breathing rate 16, blood pressure 118/71 and 92/62 and she was saturating 96% on mechanical ventilation Labs were showing leukocytosis of 20.5 K. INR 2.7 PH 7.2, pCO2 47 and pO2 59. Sodium 137, low potassium 2.8, normal creatinine 0.9. Glucose elevated to 65. Liver enzymes slightly elevated with AST 83 and ALT 36. Trending up troponin 0.02, 9.4 and 23.9. Coronavirus chest x-ray: Status post intubation. There may be underlying pulmonary edema or pneumonia. Repeat fracture noted on the left Nondetected. EKG showing ST elevation in anterior septal leads V1 to V4 Patient was taken to emergent cardiac cath and she underwent cardiac cathete rization with PCI to the totally occluded proximal LAD. After the procedure patient was placed on aspirin, Brillinta ,and beta beni, GONZALEZ inhibitor and statin Today patient is still intubated in the ICU, and on mechanical ventilation. She has PEEP of 10, FiO2 of 40%, tidal volume 375, she has sinus rhythm at 90 bpm, she has a Mcneil and OG tube. She has normal saline running at 50 mL per hour 02/15/2021 ICU intubated and sedated with pulmonary/critical care team followed closely Patient failed sedation trial yesterday and today. Neurology team on the case PEG showing no epileptiform discharge Ejection fraction is 50-55% Chest x-ray no change from yesterday Labs reviewed, WBC down to 14 K, INR down to normal at 1.5 Patient remains on aspirin and Brilinta Continue with gentle hydration, lisinopril, metoprolol and Aldactone with cardiology and nephrology followed the patient closely 02/16/2021 Patient remains in the ICU intubated and sedated. She is undergoing sedation holiday today as well with possible extubation that are on. She is developing fever of 100.4, her WBCs 15 K. EEG showing no epileptiform discharge. Chest x-ray showing increased perihilar opacity. There are sputum culture, proteincalcitonin. Patient is kept on aspirin and Brilinta and gentle hydration. 02/17/2021 Yesterday patient got extubated and she was doing relatively well until during the night when her respiratory status Worsened and by the morning she has to be intubated again for tachypnea and tachycardia and now she is again on mechanical ventilation. Also patient is a spiking a fever and 102 most likely secondary to pneumonia and patient was started on cefepime with culture has been requested from blood and sputum. 02/18/2021 Today patient still intubated and sedated, she still on mechanical ventilation. With pulmonary/critical care team monitor her closely and following her She is developing pneumonia with sepsis status progressed into septic shock, blood culture and sputum culture are growing staph aureus pending final culture results patient was started on IV vancomycin as well as cefepime. her blood pressure started dropping and she needed levothroid, her creatinine trending up and she is developing oliguria as per last hour she made only 5 ml/h when i checked with the night nurse. therefore 1 l liter of bolus is provided. her sugar is elevated more than 300 and if this not improving she might need to be started on insulin drip. her leukocytosis is at 14 k, creatinine trending up to 1.2. she still has a fever of 102 today. Remains on aspirin and Brilinta, pulmonary/critical care team and cardiology teams on the case 02/19/2021 Patient remains in critical condition needs mechanical ventilation on Levophed for her septic shock secondary to MSSA septicemia and pneumonia with positive sputum on blood culture Her antibiotics were adjusted today about pulmonary/critical care team into Levaquin while they discontinued cefepime and IV vancomycin. Patient still running high fever at 102. And she is becoming oliguric with acute kidney injury creatinine trending up to 2.7. Nephrology consult was obtained as she might need dialysis down the road if no improvement. Chest x-ray shows slight worsening on the right side or an changed. When I reviewed by myself. Antibiotics has just adjusted as above. Also she is on normal saline at 50 mm, insulin drip and pressors. Also she is on aspirin, Brilinta for her new ostomy 02/20/2021 Patient remains intubated and sedated in the ICU. She still in critical condition. She is currently in septic shock secondary to MSSA pneumonia and bacteremia. She's been covered with broad-spectrum antibiotics of Levaquin and cefepime. Continue with IV fluid normal sign 75 and pressors with levophed and vasopressin Also he is on insulin drip. Labs showed leukocytosis of 15.6. Creatinine trending up to 3.7 and patient is oliguric. Patient is started on hemodialysis today, second hemodialysis tomorrow 02/21/2021 Patients with septic shock secondary to MSSA pneumonia and septicemia status post cardiac arrest on arrival to the emergency room, resuscitated and currently intubated in the ICU. She developed oliguric renal failure undergoing hemodialysis. She was taken off sedation with no much response, therefore neurologist is involved and she is having negative CT of the brain. Plan to repeat EEG tomorrow Other than that she remains critically ill in the ICU and kept on broad-spectrum antibiotics with cefepime and Levaquin, aspirin and Brilinta Today DC'd her Levaquin Continue with insulin and drip 02/22/2021 Patient remains in septic shock and respiratory failure requiring intubation and mechanical ventilation. Several consultants on the case including pulmonary/critical care team, nephrology, cardiology, neurology. She still needs pressors. Patient has been afebrile for more than 48 hours but her blood culture showing persistent staff. She received 1 dose of IV vancomycin on the top of cefepime and Levaquin. Infectious disease team were consulted today. WBC is 15 K, creatinine 3.7 and she is undergoing hemodialysis today and tomorrow as she is anuric. Glucose controlled on insulin drip. Hemoglobin is stable at 8.0. She is on aspirin and Brilinta given her cardiac arrest upon admission. Prognosis remains guarded 02/23/2021 Patient critically air in the ICU with pulmonary/critical care team monitor her closely and help with vent management. It looks patient brain function is not showing good response while off sedation with neurology team on the case and recommended repeat EEG. Other than that she remains on FiO2 of 50%, she is tachypneic every 2 and afebrile. WBC today 14.7, creatinine 4.7. Hemoglobin 7.4. Antibiotics were adjusted to cefazolin today. Patient did not cut hemodialysis yesterday, she will Probably 1 today. Continue with aspirin Brilinta, with housing court judge team on the case 02/24/2021 Patient is intubated and sedated. However she underwent an still with of sedation with no significant change in her mental status but the septum time she is septic with positive blood culture for staph, sensitive been covered with cefazolin. She still has a fever today of 100.5. Her FiO2 actually went up to 80% today. Distal tachypneic around 30. Chest x-ray showing worsening left lung infiltrate compared to yesterday. Neurology still in the process offices in mental status. Repeat EEG today is pending. She remains on cefazolin, aspirin and Brilinta. She's getting hemodialysis daily with nephrology team of the case 02/25/2021 Patient remains in the ICU intubated on mechanical ventilation while she is off sedation she does not make good progress mentally. Neurologic service following her closely. First EEG was negative, patient had a repeat EEG and result is pending. She still needs pressors. She has infection with staph aureus and her blood and pneumonia. Chest x-ray showing bilateral airspace opacity and left lower lobe opacity near complete collapse, slight improvement. She has a fever today 100.5. Tachypneic as expected and 31. She is tachycardic at 111, Her FiO2 to 60%. Peep 15. Labs reviewed. Hemoglobin 7.4. Creatinine 4.0. WBC 13.[address] Tom zavala. No hemodialysis today and resume it tomorrow per class b truck driver. Continue cefazolin, insulin drip at 5.5 units per hour, she's on levophed at 0.07 this morning. No IV fluids Objective - Vital Signs Vital signs: Vital Signs Temp 100.5 F H 02/25/21 04:00 Pulse 111 H 02/25/21 09:10 Resp 31 H 02/25/21 09:10 BP 137/61 02/24/21 23:00 Pulse Ox 99 02/25/21 07:15 Intake & Output 02/24/21 02/25/21 02/25/21 18:59 06:59 18:59 Intake Total 108.690 0344.008 118.276 Output Total 3013 10 Balance -2559.393 1243.008 118.276 Weight 149.9 kg 147.8 kg Intake: IV 382 300 23 Kefzol 50 PRESSURE BAGS Sodium 72 30 3 chloride 0.9 Sodium Chloride 0.9% 1, 260 220 20 000 ml @ 20 mls/hr IV . Q24H ADRIANA Rx#:[id number] ceFAZolin 2 gm In Sodium 50 Chloride 0.9% 50 ml @ 100 mls/hr IVPB Q12HR ADRIANA Rx #:[id number] Intake, IV Titration 71.607 93.008 25.276 Amount Insulin Regular 100 unit 53.783 21.941 25.276 In Sodium Chloride 0.9% 100 ml @ Per Protocol IV .Q0M ADRIANA Rx#:[id number] Norepinephrine 32 mg In 17.824 71.067 Sodium Chloride 0.9% 218 ml @ 0.05 MCG/KG/MIN 3. 202 mls/hr IV .Q24H ADRIANA Rx#:[id number] Tube Feeding 770 70 Other 90 Output: Urine 13 10 Hemodialysis 3000 Other: Voiding Method Indwelling Catheter Indwelling Catheter ABP, PAP, CO, CI - Last Documented Arterial Blood Pressure 156/48 - Exam -GENERAL: The patient is sedated and intubated, not in any acute distress. morbidly obese HEENT: Pupils are round and equally reacting to light. EOMI. No scleral icterus. No conjunctival pallor. Normocephalic, atraumatic. No pharyngeal erythema. No thyromegaly. CARDIOVASCULAR: S1 and S2 present. No murmurs, rubs, or gallops. PULMONARY: Chest is clear to auscultation, no wheezing. ABDOMEN: Soft, nontender, nondistended, normoactive bowel sounds. No palpable organomegaly. MUSCULOSKELETAL: No joint swelling or deformity. EXTREMITIES: No cyanosis, clubbing, or pedal edema. NEUROLOGICAL: Gross neurological examination did not reveal any focal deficits. SKIN: No rashes. no petechiae. - Labs CBC & Chem 7: 02/25/21 03:26 02/25/21 03:26 Labs: Abnormal Lab Results - Last 24 Hours (Table) 02/24/21 02/24/21 02/24/21 Range/Units 11:46 14:04 15:54 WBC (3.8-10.6) k/uL RBC (3.80-5.40) m/uL Hgb (11.4-16.0) gm/dL Hct (34.0-46.0) % MCHC (31.0-37.0) g/dL RDW (11.5-15.5) % ABG pH (7.35-7.45) ABG pCO2 (35-45) mmHg ABG pO2 (83-108) mmHg ABG Total CO2 (19-24) mmol/L ABG O2 Saturation (94-97) % Chloride (98-107) mmol/L BUN (7-17) mg/dL Creatinine (0.52-1.04) mg/dL Glucose (74-99) mg/dL POC Glucose (mg/dL) 120 H 160 H 162 H (75-99) mg/dL Calcium (8.4-10.2) mg/dL AST (14-36) U/L Alkaline Phosphatase (38-126) U/L Total Protein (6.3-8.2) g/dL Albumin (3.5-5.0) g/dL 02/24/21 02/24/21 02/24/21 Range/Units 18:42 19:54 21:47 WBC (3.8-10.6) k/uL RBC (3.80-5.40) m/uL Hgb (11.4-16.0) gm/dL Hct (34.0-46.0) % MCHC (31.0-37.0) g/dL RDW (11.5-15.5) % ABG pH (7.35-7.45) ABG pCO2 (35-45) mmHg ABG pO2 (83-108) mmHg ABG Total CO2 (19-24) mmol/L ABG O2 Saturation (94-97) % Chloride (98-107) mmol/L BUN (7-17) mg/dL Creatinine (0.52-1.04) mg/dL Glucose (74-99) mg/dL POC Glucose (mg/dL) 179 H 161 H 147 H (75-99) mg/dL Calcium (8.4-10.2) mg/dL AST (14-36) U/L Alkaline Phosphatase (38-126) U/L Total Protein (6.3-8.2) g/dL Albumin (3.5-5.0) g/dL 02/25/21 02/25/2102/25/21 Range/Units 00:22 01:59 03:26 WBC 16.5 H (3.8-10.6) k/uL RBC 2.64 L (3.80-5.40) m/uL Hgb 7.8 L (11.4-16.0) gm/dL Hct 25.1 L (34.0-46.0) % MCHC 30.9 L (31.0-37.0) g/dL RDW 17.0 H (11.5-15.5) % ABG pH (7.35-7.45) ABG pCO2 (35-45) mmHg ABG pO2 (83-108) mmHg ABG Total CO2 (19-24) mmol/L ABG O2 Saturation (94-97) % Chloride (98-107) mmol/L BUN (7-17) mg/dL Creatinine (0.52-1.04) mg/dL Glucose (74-99) mg/dL POC Glucose (mg/dL) 164 H 166 H (75-99) mg/dL Calcium (8.4-10.2) mg/dL AST (14-36) U/L Alkaline Phosphatase (38-126) U/L Total Protein (6.3-8.2) g/dL Albumin (3.5-5.0) g/dL 02/25/21 02/25/21 02/25/21 Range/Units 03:26 03:30 06:17 WBC (3.8-10.6) k/uL RBC (3.80-5.40) m/uL Hgb (11.4-16.0) gm/dL Hct (34.0-46.0) % MCHC (31.0-37.0) g/dL RDW (11.5-15.5) % ABG pH 7.32 L (7.35-7.45) ABG pCO2 49 H (35-45) mmHg ABG pO2 171 H (83-108) mmHg ABG Total CO2 27 H (19-24) mmol/L ABG O2 Saturation 99.9 H (94-97) % Chloride 110 H (98-107) mmol/L BUN 77 H (7-17) mg/dL Creatinine 4.05 H (0.52-1.04) mg/dL Glucose 166 H (74-99) mg/dL POC Glucose (mg/dL) 172 H (75-99) mg/dL Calcium 7.1 L (8.4-10.2) mg/dL AST 167 H (14-36) U/L Alkaline Phosphatase 328 H (38-126) U/L Total Protein 5.3 L (6.3-8.2) g/dL Albumin 2.2 L (3.5-5.0) g/dL 02/25/21 02/25/21 Range/Units 06: 07:57 WBC (3.8-10.6) k/uL RBC (3.80-5.40) m/uL Hgb (11.4-16.0) gm/dL Hct (34.0-46.0) % MCHC (31.0-37.0) g/dL RDW (11.5-15.5) % ABG pH (7.35-7.45) ABG pCO2 (35-45) mmHg ABG pO2 (83-108) mmHg ABG Total CO2 (19-24) mmol/L ABG O2 Saturation (94-97) % Chloride (98-107) mmol/L BUN (7-17) mg/dL Creatinine (0.52-1.04) mg/dL Glucose (74-99) mg/dL POC Glucose (mg/dL) 176 H 173 H (75-99) mg/dL Calcium (8.4-10.2) mg/dL AST (14-36) U/L Alkaline Phosphatase (38-126) U/L Total Protein (6.3-8.2) g/dL Albumin (3.5-5.0) g/dL Microbiology - Last 24 Hours (Table) 02/24/21 06:05 Blood Culture - Preliminary Blood No Growth after 24 hours 02/21/21 09:35 Blood Culture Gram Stain - Final Blood Blood Culture - Final Staphylococcus aureus 02/20/21 09:01 Blood Culture Gram Stain - Final Blood Blood Culture - Final Staphylococcus aureus Assessment and Plan Assessment: Acute anteroseptal STEMI Cardiac arrest, status post ventricular fibrillation status post CPR and return of circulation Acute hypoxic respiratory failure needing intubation and mechanical ventilation Sepsis secondary to pneumonia with fever and leukocytosis, developing into septic shock secondary to MSSA in the sputum and blood Metabolic acidosis acute kidney injury with oliguria requiring hemodialysis unresponsiveness off sedation concerning for ischemic brain injury Possible pulmonary edema Leukocytosis, secondary to above Left fracture secondary to CPR Coagulopathy with INR 2.7 upon admission, resolved Hypertension Hypothyroidism Diabetes mellitus History of GERD History of coronary artery disease Morbidly obese. BMI 45.8 Plan: This is a 65 years old female who presents with STEMI and cardiac arrest status post CPR and intubation, underwent cardiac cath and PCI to LAD Continue with aspirin, brillinta Continue with Intubation and mechanical ventilation with pulmonary/critical care team consult with possible extubation. Pulmonary team Antibiotics were adjusted to cefepime. Nephrology consult. Continue with hemodialysis per her class b truck driver Management Architect on the case Neurologist consulted. Infectious disease consult Labs and medication were reviewed.. Continue same treatment. Continue with symptomatic treatment. Resume home medication. Monitor lytes and vitals. DVT and GI prophylaxis. Further recommendations as per clinical course of the patient DVT prophylaxis: Aspirin and brillinta GI Prophylaxis: Pepcid Prognosis is guarded
[2021-02-25 11:02] LABS: Glucose,Whole Blood 153 mg/dL (75-99)
[2021-02-25] MEDS: NOREPINEPHRINE 32 MG in SODIUM CHLORIDE 0.9% 218 ML IV SCH (11:20)
--- NOTE | 2021-02-25 11:28 | P.PN ---
Subjective Progress Note Date: 02/25/21 Principal diagnosis: Acute hypoxic respiratory failure secondary to auto possible cardiac arrest with prolonged down time, 34 minutes before return of spontaneous circulation. On 02/22/2022 patient seen in follow-up in intensive care unit. She remains unresponsive, she has been off sedation since 02/20/2021. She has not received any Diprivan or narcotics. She remains intubated on assist control mode of ventilation with a rate of 28, tidal volume is 400, FiO2 of 50% and PEEP of 15. This morning's blood gas shows pO2 of 85, pCO2 50, and pH of 7.29 and this was done on the above-mentioned vent settings. She is on small amount of norepinephrine, 11 mics per minute, vasopressin has been discontinued, she is on 0.9 normal saline at a rate of 20 ML per hour, no other drips. She is in sinus mechanism slightly tachycardic with a rate of 105. She has not had recurrence of A. fib. She is on aspirin and Brilinta for a recent history of stenting of the LAD 2. No other anti-coagulants at this time. Her chest x-ray today shows diffuse bilateral infiltrates that are stable in appearance, and consolidative process in the left lower lobe with a small left pleural effusion, patient was started on hemodialysis and she had hemodialysis treatments for the last 2 days. On 02/21/2021 she had 1 L of fluid removed with hemodialysis, and just ultrafiltration on 02/20/2021 with no fluid removed. Urine output is minimal in the order of 5-10 mL per hour, patient is an significantly positive net fluid balance since admission, she has significant third spacing and edema involving her upper and lower extremities and trunk. She is at least 10 kg positive since admission. Low-grade fevers overnight. T-max is 99.6F. Patient remains on cefepime for antibiotic coverage, her blood cultures from 02/17/2021 showed MSSA, follow-up blood cultures sent on 02/20/2021 and 02/21/2021 are showing gram-positive cocci in groups. Final culture is pending. Today's labs show im provement in white count which is down to 15.4, hemoglobin is 8.0, platelet count is 147, sodium is 144, potassium is 3.4, chloride is 112, B1 is 56, and creatinine is 3.74, renal profile is relatively stable, her AST is 132, slightly increased, ALT is within normal limits at 25, alkaline phosphatase is 232, her last pro-calcitonin from yesterday 02/21/2021 was still significantly elevated at 16.9. Patient did receive a dose of vancomycin a few days back, her last Vanco troph was on 02/19/2021 and was at 19.0. Neurologically patient doesn't attempt to open eyes, does not follow any purposeful command, she does have a positive corneal reflex, positive cough, negative gag, negative Babinski. CT of the brain from yesterday on 02/21/2021 showed no acute intracranial hemorrhage or midline shift, mild diffuse age-related cerebral atrophy and chronic small vessel ischemic change without significant interval change. There was worsening paranasal sinus findings possibly related to intubation versus sinusitis. Neurology is following. Reevaluated today on 02/23/21, patient remains intubated and mechanically ventilated, she is on assist control rate of 28 tidal volume 400 FiO2 50% PEEP o f 15. Remains on norepinephrine at 0.03 mcg/kg/m on insulin for 5.5 units per hour she is off sedation completely, she is not requiring any narcotics or sedatives. She is not on any paralytics. ABG showed a pO2 of 124 pCO2 47 pH of 7.30. Patient is undergoing hemodialysis during my evaluation. Chest x-ray showed bilateral infiltrates greater on the left compared to the right, I believe the findings are mostly findings of CHF not true pneumonia although the patient may have aspirated during the code. WBC count is 14.7, hemoglobin is 7.4 electrolytes are normal BUN is 82 creatinine 4.74. Patient is being followed by many consultants including cardiology and nephrology and neurology, and at this point I believe her condition is extremely poor, and I doubt if we are going to notice any neurological recovery. May have to approach family somewhat along the line regarding CODE STATUS and comfort care measures. Reevaluated today on 02/24/21, patient remains in the ICU, intubated and m echanically ventilated. She is on assist control rate of 28 tidal volume 400 FiO2 on the percent and PEEP of 15. ABG is marginal with a pO2 of 95 pCO2 49 pH of 7.33. Chest x-ray is showing worsening left lung edema and or infiltrates. Patient is supposed to be dialyzed today, and I believe that would likely improve her pulmonary status. Her FiO2 had to be increased up to 100% last night. And today we will try to titrated down and maintain O2 saturation above 90%. Renal functioning remains poor with elevated BUN elevated creatinine of 7.06. WBC count is 15.1 hemoglobin is 8.0. Patient remains empirically on antibiotics. She is also on Lovenox/DVT prophylaxis. And she is also on Sheri linta, on Protonix for GI prophylaxis. His been on off norepinephrine intermittently Reevaluated today on 02/25/21, patient remains in the ICU intubated and mechanically ventilator. She is on assist control rate of 28 tidal volume 400 FiO2 60% PEEP is 15. Today after reviewing that ABG I cut down the PEEP to 12 and I cut down the FiO2 to 50%. Patient is requiring norepinephrine at 0.07 mcg/kg/m she is also on insulin at 5.5 units per hour she is on cefazolin, IV fluids at KVO, patient is off all narcotics and sedatives, and yet there is no evidence of any neurological response whatsoever except she may slightly open her eyes to deep painful stimuli. Otherwise no purposeful responses noted whatsoever. Chest x-ray showed adequate placement of the endotracheal tube. Bilateral airspace opacities noted mostly in the left lower lobe with atelectasis ABG today showed a pO2 of 171 pCO2 49 pH of 7.3 renal functioning is worsening. patient is not receiving hemodialysis today. WBC count is 16.5 hemoglobin is 7.8. Objective - Vital Signs Vital signs: Vital Signs Temp 100.5 F H 02/25/21 04:00 Pulse 111 H 02/25/21 09:10 Resp 31 H 02/25/21 09:10 BP 137/61 02/24/21 23:00 Pulse Ox 99 02/25/21 07:15 Intake & Output 02/24/21 02/25/21 02/25/21 18:59 06:59 18:59 Intake Total 798.619 4302.008 132.943 Output Total 3013 10 Balance -2559.393 1243.008 132.943 Weight 149.9 kg 147.8 kg Intake: IV 382 300 23 Kefzol 50 PRESSURE BAGS Sodium 72 30 3 chloride 0.9 Sodium Chloride 0.9% 1, 260 220 20 000 ml @ 20 mls/hr IV . Q24H [facility] Rx#:[id number] ceFAZolin 2 gm In Sodium 50 Chloride 0.9% 50 ml @ 100 mls/hr IVPB Q12HR [facility] Rx #:[id number] Intake, IV Titration 71.607 93.008 39.943 Amount Insulin Regular 100 unit 53.783 21.941 39.943 In Sodium Chloride 0.9% 100 ml @ Per Protocol IV .Q0M [facility] Rx#:[id number] Norepinephrine 32 mg In 17.824 71.067 Sodium Chloride 0.9% 218 ml @ 0.05 MCG/KG/MIN 3. 202 mls/hr IV .Q24H [facility] Rx#:[id number] Tube Feeding 770 70 Other 90 Output: Urine 13 10 Hemodialysis 3000 Other: Voiding Method Indwelling Catheter Indwelling Catheter ABP, PAP, CO, CI - Last Documented Arterial Blood Pressure 156/48 - Exam GENERAL EXAM: Revealed 64-year-old female obese, unresponsive to any stimuli, intubated and mechanically ventilated. HEAD: Normocephalic/atraumatic. EYES: Normal reaction of pupils, equal size. Conjunctiva pink, sclera white. NOSE: Clear with pink turbinates. THROAT: No erythema or exudates. NECK: No masses, no JVD, no thyroid enlargement, no adenopathy. CHEST: No chest wall deformity. Symmetrical expansion. LUNGS: Crackles at the bases no rhonchi and no wheezes. CVS: Regular rate and rhythm, normal S1 and S2, no gallops, no murmurs, no rubs ABDOMEN: Obese soft nontender no megaly no rebound. EXTREMITIES: 2+ bipedal edema. SKIN: No rashes CENTRAL NERVOUS SYSTEM: Unresponsive, to any stimuli, may open eyes slightly to deep painful stimuli at times. patient is comatose. - Labs CBC & Chem 7: 02/25/21 03:26 02/25/21 03:26 Labs: Abnormal Lab Results - Last 24 Hours (Table) 02/24/21 02/24/21 02/24/21 Range/Units 11:46 14:04 15:54 WBC (3.8-10.6) k/uL RBC (3.80-5.40) m/uL Hgb (11.4-16.0) gm/dL Hct (34.0-46.0) % MCHC (31.0-37.0) g/dL RDW (11.5-15.5) % ABG pH (7.35-7.45) ABG pCO2 (35-45) mmHg ABG pO2 (83-108) mmHg ABG Total CO2 (19-24) mmol/L ABG O2 Saturation (94-97) % Chloride (98-107) mmol/L BUN (7-17) mg/dL Creatinine (0.52-1.04) mg/dL Glucose (74-99) mg/dL POC Glucose (mg/dL) 120 H 160 H 162 H (75-99) mg/dL Calcium (8.4-10.2) mg/dL AST (14-36) U/L Alkaline Phosphatase (38-126) U/L Total Protein (6.3-8.2) g/dL Albumin (3.5-5.0) g/dL 02/24/21 02/24/21 02/24/21 Range/Units 18:42 19:54 21:47 WBC (3.8-10.6) k/uL RBC (3.80-5.40) m/uL Hgb (11.4-16.0) gm/dL Hct (34.0-46.0) % MCHC (31.0-37.0) g/dL RDW (11.5-15.5) % ABG pH (7.35-7.45) ABG pCO2 (35-45) mmHg ABG pO2 (83-108) mmHg ABG Total CO2 (19-24) mmol/L ABG O2 Saturation (94-97) % Chloride (98-107) mmol/L BUN (7-17) mg/dL Creatinine (0.52-1.04) mg/dL Glucose (74-99) mg/dL POC Glucose (mg/dL) 179 H 161 H 147 H (75-99) mg/dL Calcium (8.4-10.2) mg/dL AST (14-36) U/L Alkaline Phosphatase (38-126) U/L Total Protein (6.3-8.2) g/dL Albumin (3.5-5.0) g/dL 02/25/21 02/25/21 02/25/21 Range/Units 00:22 01:59 03:26 WBC 16.5 H (3.8-10.6) k/uL RBC 2.64 L (3.80-5.40) m/uL Hgb 7.8 L (11.4-16.0) gm/dL Hct 25.1 L (34.0-46.0) % MCHC 30.9 L (31.0-37.0) g/dL RDW 17.0 H (11.5-15.5) % ABG pH (7.35-7.45) ABG pCO2 (35-45) mmHg ABG pO2 (83-108) mmHg ABG Total CO2 (19-24) mmol/L ABG O2 Saturation (94-97) % Chloride (98-107) mmol/L BUN (7-17) mg/dL Creatinine (0.52-1.04) mg/dL Glucose (74-99) mg/dL POC Glucose (mg/dL) 164 H 166 H (75-99) mg/dL Calcium (8.4-10.2) mg/dL AST (14-36) U/L Alkaline Phosphatase (38-126) U/L Total Protein (6.3-8.2) g/dL Albumin (3.5-5.0) g/dL 02/25/21 02/25/21 02/25/21 Range/Units 03:26 03:30 06:17 WBC (3.8-10.6) k/uL RBC (3.80-5.40) m/uL Hgb (11.4-16.0) gm/dL Hct (34.0-46.0) % MCHC (31.0-37.0) g/dL RDW (11.5-15.5) % ABG pH 7.32 L (7.35-7.45) ABG pCO2 49 H (35-45) mmHg ABG pO2 171 H (83-108) mmHg ABG Total CO2 27 H (19-24) mmol/L ABG O2 Saturation 99.9 H (94-97) % Chloride 110 H (98-107) mmol/L BUN 77 H (7-17) mg/dL Creatinine 4.05 H (0.52-1.04) mg/dL Glucose 166 H (74-99) mg/dL POC Glucose (mg/dL) 172 H (75-99) mg/dL Calcium 7.1 L (8.4-10.2) mg/dL AST 167 H (14-36) U/L Alkaline Phosphatase 328 H (38-126) U/L Total Protein 5.3 L (6.3-8.2) g/dL Albumin 2.2 L (3.5-5.0) g/dL 02/25/21 02/25/21 02/25/21 Range/Units 06:21 07:57 11:00 WBC (3.8-10.6) k/uL RBC (3.80-5.40) m/uL Hgb (11.4-16.0) gm/dL Hct (34.0-46.0) % MCHC (31.0-37.0) g/dL RDW (11.5-15.5) % ABG pH (7.35-7.45) ABG pCO2 (35-45) mmHg ABG pO2 (83-108) mmHg ABG Total CO2 (19-24) mmol/L ABG O2 Saturation (94-97) % Chloride (98-107) mmol/L BUN (7-17) mg/dL Creatinine (0.52-1.04) mg/dL Glucose (74-99) mg/dL POC Glucose (mg/dL) 176 H 173 H 153 H (75-99) mg/dL Calcium (8.4-10.2) mg/dL AST (14-36) U/L Alkaline Phosphatase (38-126) U/L Total Protein (6.3-8.2) g/dL Albumin (3.5-5.0) g/dL Microbiology - Last 24 Hours (Table) 02/24/21 06:05 Blood Culture - Preliminary Blood No Growth after 24 hours 02/21/21 09:35 Blood Culture Gram Stain - Final Blood Blood Culture - Final Staphylococcus aureus 02/20/21 09:01 Blood Culture Gram Stain - Final Blood Blood Culture - Final Staphylococcus aureus Assessment and Plan Assessment: Impression: Acute hypoxic respiratory failure secondary to cardiac arrest with prolonged downtime of 34 minutes until return of spontaneous circulation. Intubated on 02/13 , extubated on 02/16 reintubated on 02/17 and he remains intubated and unresponsive. Possible septic shock secondary to MSSA bacteremia patient remains on antibiotics. Did receive vancomycin she is now on cefazolin had elevated pro calcitonin level. Required pressors for low blood pressure. Remains on norepinephrine Suspect acute metabolic encephalopathy and anoxic brain injury Acute anterior wall myocardial infarction status post LAD the stenting on 02/13 Type 2 diabetes Benign essential hypertension Hypothyroidism Morbid obesity History of coronary artery disease New-onset atrial fibrillation History of marijuana smoking Recommendation: Continue ventilatory support, FiO2 is down to 50% PEEP is 12 continued tidal v olume of 400 and assist control rate of 28 Keep patient off sedation completely to assess mental status as I see no recovery at this point. Continue dialysis Continue antibiotics for possible cultures, placed on cefazolin. Infectious disease on the case. Neurology is assessing her neurological status daily Patient remains critically ill Continue GI and DVT prophylaxis. Prognosis is guarded Critical care time is over 30 minutes. Time with Patient: Greater than 30
[2021-02-25 12:00] LABS: Glucose,Whole Blood 168 mg/dL (75-99)
--- NOTE | 2021-02-25 12:45 | P.PN ---
Subjective Progress Note Date: 02/25/21 The patient is seen at bedside and per the nurse she has been about the same from neurological perspective. Patient continues to be off sedation. She is on Norepinephrine. Objective - Vital Signs Vital signs: Vital Signs Temp 100.5 F H 02/25/21 04:00 Pulse 111 H 02/25/21 09:10 Resp 31 H 02/25/21 09:10 BP 137/61 02/24/21 23:00 Pulse Ox 99 02/25/21 07:15 Intake & Output 02/24/21 02/25/21 02/25/21 18:59 06:59 18:59 Intake Total 248.731 4311.008 118.276 Output Total 3013 10 Balance -2559.393 1243.008 118.276 Weight 149.9 kg 147.8 kg Intake: IV 382 300 23 Kefzol 50 PRESSURE BAGS Sodium 72 30 3 chloride 0.9 Sodium Chloride 0.9% 1, 260 220 20 000 ml @ 20 mls/hr IV . Q24H [facility] Rx#:[id number] ceFAZolin 2 gm In Sodium 50 Chloride 0.9% 50 ml @ 100 mls/hr IVPB Q12HR [facility] Rx #:[id number] Intake, IV Titration 71.607 93.008 25.276 Amount Insulin Regular 100 unit 53.783 21.941 25.276 In Sodium Chloride 0.9% 100 ml @ Per Protocol IV .Q0M [facility] Rx#:[id number] Norepinephrine 32 mg In 17.824 71.067 Sodium Chloride 0.9% 218 ml @ 0.05 MCG/KG/MIN 3. 202 mls/hr IV .Q24H [facility] Rx#:[id number] Tube Feeding 770 70 Other 90 Output: Urine 13 10 Hemodialysis 3000 Other: Voiding Method Indwelling Catheter Indwelling Catheter ABP, PAP, CO, CI - Last Documented Arterial Blood Pressure 156/48 - Exam GENERAL: The patient is morbid obese woman, lying in bed and does not seem in acute distress. LUNG: Clear to auscultation bilaterally no wheezing noted throughout. Not labored breathing. Intubated on ventilator. NEUROLOGICAL: Limited because of condition. Last IV sedation was on 02/20/21 at 8am. Higher mental function: The patient is comatose GCS 4( E2, VT1, M1). The patient is not verbally responsive or following commands. Cranial nerves: I manually opened her eyes. The primary gaze is midline. With painful stimuli the patient minimally opens eyes. The pupils are round, right is 2-3mm and left is 3-4mm and reactive to light. Positive corneal reflex bilaterally. No facial weaknesss. Is breathing over the vent. Negative gag reflex. Motor: The strength is hard to assess because of her condition. No movement noted to painful stimuli patient would grimace face minimally on bilateral upper. Normal tone and bulk. Cerebellum: Could not assess. Sensation: Could not assess light touch. WORK-UP: * AST of 123 which is trending up while ALTs 25.-->170/37 * Ammonia level 11. * His creatnine is trending up. On presentation it was 0.91. Most current is 4.06 * Ionized calcium is 4.5. * Patient white blood cell is trending up is 23.0 * Computed tomography scan of head 02/14/21: Is reported as degenerative and nonspecific white matter changes are nonspecific. * Repeat CT head on 02/21/21: No acute intracranial hemorrhage or midline shift. There is mild diffuse age-related cerebral atrophy and chronic small vessel ischemic change redomenstarted without significant interval change. * Routine EEG on 02/15/2021 is reported as was abnormal due to background slowing of mild to moderate degree. This is suggestive of generalized cerebral dysfunction as can be seen with toxic metabolic encephalopathy or from diffuse structural brain abnormality. No epileptiform activity was seen. * Repeat routine EEG on 02/24/2021: Is abnormal. The background slowing suggestive of moderate to severe encephalopathy. There are no focal slowing, epileptiform discharges or seizure on the EEG. * 2-D echo was reported as left ventricular size is normal. Mild concentric left ventricular hypertrophy. Ejection fraction of 50-55%. - Labs CBC & Chem 7: 02/25/21 03:26 02/25/21 03:26 Labs: Abnormal Lab Results - Last 24 Hours (Table) 02/24/21 02/24/21 02/24/21 Range/Units 11:46 14:04 15:54 WBC (3.8-10.6) k/uL RBC (3.80-5.40) m/uL Hgb (11.4-16.0) gm/dL Hct (34.0-46.0) % MCHC (31.0-37.0) g/dL RDW (11.5-15.5) % ABG pH (7.35-7.45) ABG pCO2 (35-45) mmHg ABG pO2 (83-108) mmHg ABG Total CO2 (19-24) mmol/L ABG O2 Saturation (94-97) % Chloride (98-107) mmol/L BUN (7-17) mg/dL Creatinine (0.52-1.04) mg/dL Glucose (74-99) mg/dL POC Glucose (mg/dL) 120 H 160 H 162 H (75-99) mg/dL Calcium (8.4-10.2) mg/dL AST (14-36) U/L Alkaline Phosphatase (38-126) U/L Total Protein (6.3-8.2) g/dL Albumin (3.5-5.0) g/dL 02/24/21 02/24/21 02/24/21 Range/Units 18:42 19:54 21:47 WBC (3.8-10.6) k/uL RBC (3.80-5.40) m/uL Hgb (11.4-16.0) gm/dL Hct (34.0-46.0) % MCHC (31.0-37.0) g/dL RDW (11.5-15.5) % ABG pH (7.35-7.45) ABG pCO2 (35-45) mmHg ABG pO2 (83-108) mmHg ABG Total CO2 (19-24) mmol/L ABG O2 Saturation (94-97) % Chloride (98-107) mmol/L BUN (7-17) mg/dL Creatinine (0.52-1.04) mg/dL Glucose (74-99) mg/dL POC Glucose (mg/dL) 179 H 161 H 147 H (75-99) mg/dL Calcium (8.4-10.2) mg/dL AST (14-36) U/L Alkaline Phosphatase (38-126) U/L Total Protein (6.3-8.2) g/dL Albumin (3.5-5.0) g/dL 02/25/21 02/25/21 02/25/21 Range/Units 00:22 01:59 03:26 WBC 16.5 H (3.8-10.6) k/uL RBC 2.64 L (3.80-5.40) m/uL Hgb 7.8 L (11.4-16.0) gm/dL Hct 25.1 L (34.0-46.0) % MCHC 30.9 L (31.0-37.0) g/dL RDW 17.0 H (11.5-15.5) % ABG pH (7.35-7.45) ABG pCO2 (35-45) mmHg ABG pO2 (83-108) mmHg ABG Total CO2 (19-24) mmol/L ABG O2 Saturation (94-97) % Chloride (98-107) mmol/L BUN (7-17) mg/dL Creatinine (0.52-1.04) mg/dL Glucose (74-99) mg/dL POC Glucose (mg/dL) 164 H 166 H (75-99) mg/dL Calcium (8.4-10.2) mg/dL AST (14-36) U/L Alkaline Phosphatase (38-126) U/L Total Protein (6.3-8.2) g/dL Albumin (3.5-5.0) g/dL 02/25/21 02/25/21 02/25/21 Range/Units 03:26 03:30 06:17 WBC (3.8-10.6) k/uL RBC (3.80-5.40) m/uL Hgb (11.4-16.0) gm/dL Hct (34.0-46.0) % MCHC (31.0-37.0) g/dL RDW (11.5-15.5) % ABG pH 7.32 L (7.35-7.45) ABG pCO2 49 H (35-45) mmHg ABG pO2 171 H (83-108) mmHg ABG Total CO2 27 H (19-24) mmol/L ABG O2 Saturation 99.9 H (94-97) % Chloride 110 H (98-107) mmol/L BUN 77 H (7-17) mg/dL Creatinine 4.05 H (0.52-1.04) mg/dL Glucose 166 H (74-99) mg/dL POC Glucose (mg/dL) 172 H (75-99) mg/dL Calcium 7.1 L (8.4-10.2) mg/dL AST 167 H (14-36) U/L Alkaline Phosphatase 328 H (38-126) U/L Total Protein 5.3 L (6.3-8.2) g/dL Albumin 2.2 L (3.5-5.0) g/dL 02/25/21 02/25/21 02/25/21 Range/Units 06:21 07:57 11:00 WBC (3.8-10.6) k/uL RBC (3.80-5.40) m/uL Hgb (11.4-16.0) gm/dL Hct (34.0-46.0) % MCHC (31.0-37.0) g/dL RDW (11.5-15.5) % ABG pH (7.35-7.45) ABG pCO2 (35-45) mmHg ABG pO2 (83-108) mmHg ABG Total CO2 (19-24) mmol/L ABG O2 Saturation (94-97) % Chloride (98-107) mmol/L BUN (7-17) mg/dL Creatinine (0.52-1.04) mg/dL Glucose (74-99) mg/dL POC Glucose (mg/dL) 176 H 173 H 153 H (75-99) mg/dL Calcium (8.4-10.2) mg/dL AST (14-36) U/L Alkaline Phosphatase (38-126) U/L Total Protein (6.3-8.2) g/dL Albumin (3.5-5.0) g/dL Microbiology - Last 24 Hours (Table) 02/24/21 06:05 Blood Culture - Preliminary Blood No Growth after 24 hours 02/21/21 09:35 Blood Culture Gram Stain - Final Blood Blood Culture - Final Staphylococcus aureus 02/20/21 09:01 Blood Culture Gram Stain - Final Blood Blood Culture - Final Staphylococcus aureus Assessment and Plan Assessment: * Altered mental status due to multifactorial: anoxic encephalopathy due to cardiac arrest (34 minutes), septic encephalopathy and component of toxic- metabolic encephalopathy (her creatine is trending up, with slight elevation of AST). Off sedation since 02/20/21 at 8am. * Status post cardiac arrest, with the downtime of 34 minutes. Patient was extubated 02/16/2021 doing quite well, following commands appropriately, and then re-intubated on 02/17/2021 due to respiratory distress. * Epic shock secondary due to methicillin sensitive staph aureus bacteremia/pneumonia. Is on antibiotic and pressors. Most current vital is hypotensive. * Acute kidney injury and is trending upward and is receiving dialysis (3rd day of dialysis) * Mild hepatopathy * Acute STEMI, * New onset atrial fibrillation vertigo to normal sinus rhythm. * History of Diabetes * History of hypothyroidism * Hypertension * CAD Plan: Repeat routine EEG on 02/24/2021: Is abnormal. The background slowing suggestive of moderate to severe encephalopathy. There are no focal slowing, epileptiform discharges or seizure on the EEG. Q2 neuro checks. Nephrology team in on board. Defer the rest of the medical management to the primary ICU team CONDITION: Is very guarded. I spoke with the patient's son via phone and updated the patient's condition. T he patient son stated, he wants to talk to rest of the family regarding further plan of care. He does not want to pursue with Trach and PEG until family decides what their wishes. The plan is discussed with the patient's nurse and patient's son (Bruce) via phone. Dominic Chávez M.D. Neuro-Hospitalist Time with Patient: Less than 30
[2021-02-25] MEDS ORDERED: DARBEPOETIN ALFA 60 MCG/0.3 ML SYRINGE SQ SCH (13:00)
--- NOTE | 2021-02-25 13:27 | PN ---
PROGRESS NOTE Patient is seen for followup for acute kidney injury. She is maintained on hemodialysis for acute kidney injury. She has underlying acute hypoxic respiratory failure, currently maintained on the vent. Blood cultures have been positive for Staph aureus, mostly MSSA. No significant urine output. Urine output noted at 0-5 cc an hour. EXAMINATION: Today patient is on the vent. She is sedated. Blood pressure 122/42, heart rate 111 per minute, she is afebrile. Examination of the heart S1, S2. Examination of the lungs, bilateral breath sounds are heard. Abdomen is soft, nontender. Examination of lower extremities shows no significant edema. LAB: Show sodium 143, potassium 4.8, chloride 110, CO2 is 23, BUN 77, creatinine 4.0, hemoglobin 7.8 g/dL. ASSESSMENT: 1. Acute kidney injury, acute tubular necrosis, currently hemodialysis dependent, status post dialysis yesterday. We will plan for treatment tomorrow. 2. MSSA bacteremia, source possibly pneumonia. Consider endocarditis as blood cultures have been persistently positive. Currently maintained on cefazolin. 3. Septic shock. 4. Acute hypoxic respiratory failure, currently on the vent. 5. Metabolic acidosis, currently improved. PLAN: Hemodialysis in a.m. Check iron profile if not done recently. I will add Aranesp for anemia as well. MMODL / IJN: [id number] /
[2021-02-25 14:09] LABS: Glucose,Whole Blood 185 mg/dL (75-99)
[2021-02-25 15:58] LABS: Glucose,Whole Blood 181 mg/dL (75-99)
[2021-02-25 18:07] LABS: Glucose,Whole Blood 195 mg/dL (75-99)
--- NOTE | 2021-02-25 19:45 | PN ---
PROGRESS NOTE DATE OF SERVICE: 02/25/2021 REASON FOR FOLLOWUP: MSSA bacteremia and pneumonia. INTERVAL HISTORY: The patient is afebrile. The patient is hemodynamically stable. FiO2 is currently stable at 50%. No significant purulent secretions through the ET, diarrhea or any other changes reported by the nursing staff. PHYSICAL EXAMINATION: Blood pressure 127/42 with a pulse of 112, temperature of 98.8. She is % on 50% FiO2. General description is a middle-aged female intubated on the vent. Respiratory system: Unlabored breathing, decreased intensity of breath sounds. No wheeze. Heart S1, S2. Regular rate and rhythm. Abdomen soft, no tenderness. LABS: Hemoglobin is 7, white count , creatinine 4.05. Blood culture repeat on 02/24 has been negative so far. DIAGNOSTIC IMPRESSION AND PLAN: Patient with MSSA bacteremia; possible source pneumonia. Blood culture repeat has been negative so far. Patient to continue cefazolin while monitoring clinical course closely. Continue with supportive care. MMODL / IJN: [id number] /
[2021-02-25] MEDS: SPIRONOLACTONE 25 MG TAB PO SCH (19:55)
[2021-02-25 20:25] LABS: Glucose,Whole Blood 224 mg/dL (75-99)
[2021-02-25] MEDS: SODIUM CHLORIDE 0.9% 1,000 ML IV SCH (20:26)
[2021-02-25] MEDS: ATORVASTATIN 80 MG TAB PO SCH (21:10)
[2021-02-25 22:03] LABS: Glucose,Whole Blood 203 mg/dL (75-99)
[2021-02-25 23:00] LABS: % Iron Saturation 14.35 (12.00-45.00)
[2021-02-25 23:59] LABS: Glucose,Whole Blood 191 mg/dL (75-99)
[2021-02-26] MEDS: IPRATROPIUM-ALBUTEROL 3 ML NEB INHALATION SCH ×7 (00:41→23:36)
[2021-02-26 02:14] LABS: Glucose,Whole Blood 175 mg/dL (75-99)
[2021-02-26 03:49] LABS: Anisocytosis Slight; Basophils % (A) 0 %; Eosinophils # (A) 0.3 k/uL (0-0.7); Eosinophils % (A) 2 %; HCT 25.4 % (34.0-46.0); HGB 7.6 gm/dL (11.4-16.0); Hypochromasia Marked; Lymphocytes # (A) 1.1 k/uL (1.0-4.8); Lymphocytes % (A) 7 %; MCH 28.6 pg (25.0-35.0); MCHC 30.1 g/dL (31.0-37.0); MCV 95.1 fL (80.0-100.0); Mean Platelet Volume 9.9; Monocytes # (A) 0.6 k/uL (0-1.0); Monocytes % (A) 4 %; Neutrophils # (A) 14.3 k/uL (1.3-7.7); Neutrophils % (A) 86 %; Platelet Count 237 k/uL (150-450); RBC 2.67 m/uL (3.80-5.40); WBC 16.5 k/uL (3.8-10.6)
[2021-02-26 04:21] LABS: ALT <6 U/L (4-34); AST 195 U/L (14-36); African American GFR (CKD) 10 (>60 ml/min/1.73 sqM); Albumin 2.2 g/dL (3.5-5.0); Alkaline Phosphatase 298 U/L (38-126); Anion Gap 12 mmol/L; Calcium 7.1 mg/dL (8.4-10.2); Carbon Dioxide 21 mmol/L (22-30); Chloride 108 mmol/L (98-107); Glucose 170 mg/dL (74-99); Non-African American GFR(CKD) 9 (>60 ml/min/1.73 sqM); Sodium 141 mmol/L (137-145); Total Bilirubin 0.4 mg/dL (0.2-1.3); Total Protein 5.4 g/dL (6.3-8.2)
[2021-02-26 04:37] LABS: Blood Urea Nitrogen 107 mg/dL (7-17)
[2021-02-26 04:38] LABS: Potassium 5.8 mmol/L (3.5-5.1)
[2021-02-26 04:49] LABS: Glucose,Whole Blood 173 mg/dL (75-99)
[2021-02-26] MEDS: NOREPINEPHRINE 32 MG in SODIUM CHLORIDE 0.9% 218 ML IV SCH (04:56)
[2021-02-26 05:54] LABS: ABG Base Excess -3.5 mmol/L; ABG HCO3 23 mmol/L (21-25); ABG PCO2 44 mmHg (35-45); ABG PH 7.32 (7.35-7.45); ABG PO2 128 mmHg (83-108); ABG TCO2 24 mmol/L (19-24); Allen Test Performed? Yes
[2021-02-26 06:39] LABS: Glucose,Whole Blood 138 mg/dL (75-99)
[2021-02-26 06:46] LABS: Glucose,Whole Blood 173 mg/dL (75-99)
[2021-02-26] MEDS: LEVOTHYROXINE 100 MCG TAB PO SCH (06:47)
--- NOTE | 2021-02-26 07:21 | XR ---
EXAMINATION TYPE: XR chest 1V DATE OF EXAM: 02/26/2021 COMPARISON: February 25, 2021 HISTORY: 65 years Female. STUDY INDICATION GIVEN: intubated . TECHNIQUE: AP upright chest radiograph IMPRESSION: Tip of endotracheal tube 3.5 cm above kosana. Left central venous catheter tip at the superior cavoat rial junction. Enteric tube courses into the stomach. Stable bilateral left greater than right opacities with left lower lobe atelectasis/near complete col lapse. No pneumothorax or large effusion. The cardiomediastinal silhouette is obscured. Overall no significant change in comparison to prior.
[2021-02-26] MEDS: ASPIRIN 81 MG PO SCH (09:08)
[2021-02-26] MEDS: CHLORHEXIDINE GLUCONATE 15 ML CUP MUCOUS MEM SCH ×2 (09:08→20:45)
[2021-02-26] MEDS: TICAGRELOR 90 MG TAB PO SCH ×2 (09:09→20:45)
[2021-02-26] MEDS: ENOXAPARIN 30 MG/0.3 ML SYRINGE SQ SCH (09:09)
[2021-02-26] MEDS: PANTOPRAZOLE 40 MG/10 ML VIAL IVP SCH (09:09)
[2021-02-26 09:52] LABS: Glucose,Whole Blood 114 mg/dL (75-99)
--- NOTE | 2021-02-26 10:29 | P.PN ---
Subjective Progress Note Date: 02/26/21 The patient is seen at bedside and per the nurse patient condition is unchanged. Today she is getting dialysis. Objective - Vital Signs Vital signs: Vital Signs Temp 99.7 F H 02/25/21 23:45 Pulse 116 H 02/26/21 07:28 Resp 30 H 02/26/21 06:00 BP 153/74 02/26/21 03:30 Pulse Ox 97 02/26/21 07:15 Intake & Output 02/25/21 02/26/21 02/26/21 18:59 06:59 18:59 Intake Total 8916.588 9731.115 122.533 Output Total 55 105 Balance 9590.416 4131.115 122.533 Weight 148.7 kg Intake: IV 253 369 23 Kefzol 50 PRESSURE BAGS Sodium 33 39 3 chloride 0.9 Sodium Chloride 0.9% 1, 220 230 20 000 ml @ 20 mls/hr IV . Q24H ADRIANA Rx#:[id number] ceFAZolin 2 gm In Sodium 50 Chloride 0.9% 50 ml @ 100 mls/hr IVPB Q12HR ADRIANA Rx #:[id number] Intake, IV Titration 73.543 171.115 29.533 Amount Insulin Regular 100 unit 73.543 51.017 29.533 In Sodium Chloride 0.9% 100 ml @ Per Protocol IV .Q0M ADRIANA Rx#:[id number] Norepinephrine 32 mg In 120.098 Sodium Chloride 0.9% 218 ml @ 0.05 MCG/KG/MIN 3. 202 mls/hr IV .Q24H ADRIANA Rx#:[id number] Tube Feeding 770 770 70 Other 30 30 Output: Urine 55 105 Other: Voiding Method Indwelling Catheter Indwelling Catheter ABP, PAP, CO, CI - Last Documented Arterial Blood Pressure 87/41 - Exam GENERAL: The patient is morbid obese woman, lying in bed and does not seem in ac nelson distress. LUNG: Clear to auscultation bilaterally no wheezing noted throughout. Not labored breathing. Intubated on ventilator. NEUROLOGICAL: Limited because of condition. Last IV sedation was on 02/20/21 at 8am. Higher mental function: The patient is comatose GCS 4( E2, VT1, M1). The patie nt is not verbally responsive or following commands. Cranial nerves: I manually opened her eyes. The primary gaze is midline. With painful stimuli the patient minimally opens eyes. The pupils are round, right is 2-3mm and left is 3-4mm and reactive to light. Positive corneal reflex bilaterally. No facial weaknesss. Is breathing over the vent. Negative gag reflex. Motor: The strength is hard to assess because of her condition. No movement noted to painful stimuli patient would grimace face minimally on bilateral upper. Normal tone and bulk. Cerebellum: Could not assess. Sensation: Could not assess light touch. WORK-UP: * AST of 123 which is trending up while ALTs 25.-->170/37 * Ammonia level 11. * His creatnine is trending up. On presentation it was 0.91. Most current is 5.02 * Ionized calcium is 4.5. * Patient white blood cell is trending up is 23.0 * Computed tomography scan of head 02/14/21: Is reported as degenerative and nonspecific white matter changes are nonspecific. * Repeat CT head on 02/21/21: No acute intracranial hemorrhage or midline shift. There is mild diffuse age-related cerebral atrophy and chronic small vessel ischemic change redomenstarted without significant interval change. * Routine EEG on 02/15/2021 is reported as was abnormal due to background slowing of mild to moderate degree. This is suggestive of generalized cerebral dysfunction as can be seen with toxic metabolic encephalopathy or from diffuse structural brain abnormality. No epileptiform activity was seen. * Repeat routine EEG on 02/24/2021: Is abnormal. The background slowing suggestive of moderate to severe encephalopathy. There are no focal slowing, epileptiform discharges or seizure on the EEG. * 2-D echo was reported as left ventricular size is normal. Mild concentric left ventricular hypertrophy. Ejection fraction of 50-55%. - Labs CBC & Chem 7: 02/26/21 03:40 02/26/21 03:40 Labs: Abnormal Lab Results - Last 24 Hours (Table) 02/25/21 02/25/21 02/25/21 Range/Units 03:26 11:00 11:58 WBC (3.8-10.6) k/uL RBC (3.80-5.40) m/uL Hgb (11.4-16.0) gm/dL Hct (34.0-46.0) % MCHC (31.0-37.0) g/dL RDW (11.5-15.5) % Neutrophils # (1.3-7.7) k/uL ABG pH (7.35-7.45) ABG pO2 (83-108) mmHg ABG O2 Saturation (94-97) % Potassium (3.5-5.1) mmol/L Chloride (98-107) mmol/L Carbon Dioxide (22-30) mmol/L BUN (7-17) mg/dL Creatinine (0.52-1.04) mg/dL Glucose (74-99) mg/dL POC Glucose (mg/dL) 153 H 168 H (75-99) mg/dL Calcium (8.4-10.2) mg/dL Iron 24 L (50-170) ug/dL TIBC 168 L (228-460) ug/dL Transferrin 120.0 L (204.0-354.0) mg/dL AST (14-36) U/L Alkaline Phosphatase (38-126) U/L Total Protein (6.3-8.2) g/dL Albumin (3.5-5.0) g/dL 02/25/21 02/25/21 02/25/21 Range/Units 14:07 15:57 18:05 WBC (3.8-10.6) k/uL RBC (3.80-5.40) m/uL Hgb (11.4-16.0) gm/dL Hct (34.0-46.0) % MCHC (31.0-37.0) g/dL RDW (11.5-15.5) % Neutrophils # (1.3-7.7) k/uL ABG pH (7.35-7.45) ABG pO2 (83-108) mmHg ABG O2 Saturation (94-97) % Potassium (3.5-5.1) mmol/L Chloride (98-107) mmol/L Carbon Dioxide (22-30) mmol/L BUN (7-17) mg/dL Creatinine (0.52-1.04) mg/dL Glucose (74-99) mg/dL POC Glucose (mg/dL) 185 H 181 H 195 H (75-99) mg/dL Calcium (8.4-10.2) mg/dL Iron (50-170) ug/dL TIBC (228-460) ug/dL Transferrin (204.0-354.0) mg/dL AST (14-36) U/L Alkaline Phosphatase (38-126) U/L Total Protein (6.3-8.2) g/dL Albumin (3.5-5.0) g/dL 02/25/21 02/25/21 02/25/21 Range/Units 20:24 22:00 23:57 WBC (3.8-10.6) k/uL RBC (3.80-5.40) m/uL Hgb (11.4-16.0) gm/dL Hct (34.0-46.0) % MCHC (31.0-37.0) g/dL RDW (11.5-15.5) % Neutrophils # (1.3-7.7) k/uL ABG pH (7.35-7.45) ABG pO2 (83-108) mmHg ABG O2 Saturation (94-97) % Potassium (3.5-5.1) mmol/L Chloride (98-107) mmol/L Carbon Dioxide (22-30) mmol/L BUN (7-17) mg/dL Creatinine (0.52-1.04) mg/dL Glucose (74-99) mg/dL POC Glucose (mg/dL) 224 H 203 H 191 H (75-99) mg/dL Calcium (8.4-10.2) mg/dL Iron (50-170) ug/dL TIBC (228-460) ug/dL Transferrin (204.0-354.0) mg/dL AST (14-36) U/L Alkaline Phosphatase (38-126) U/L Total Protein (6.3-8.2) g/dL Albumin (3.5-5.0) g/dL 02/26/21 02/26/21 02/26/21 Range/Units 02:11 03:40 03:40 WBC 16.5 H (3.8-10.6) k/uL RBC 2.67 L (3.80-5.40) m/uL Hgb 7.6 L (11.4-16.0) gm/dL Hct 25.4 L (34.0-46.0) % MCHC 30.1 L (31.0-37.0) g/dL RDW 17.0 H (11.5-15.5) % Neutrophils # 14.3 H (1.3-7.7) k/uL ABG pH (7.35-7.45) ABG pO2 (83-108) mmHg ABG O2 Saturation (94-97) % Potassium 5.8 H (3.5-5.1) mmol/L Chloride 108 H (98-107) mmol/L Carbon Dioxide 21 L (22-30) mmol/L BUN 107 H* (7-17) mg/dL Creatinine 5.02 H (0.52-1.04) mg/dL Glucose 170 H (74-99) mg/dL POC Glucose (mg/dL) 175 H (75-99) mg/dL Calcium 7.1 L (8.4-10.2) mg/dL Iron (50-170) ug/dL TIBC (228-460) ug/dL Transferrin (204.0-354.0) mg/dL AST 195 H (14-36) U/L Alkaline Phosphatase 298 H (38-126) U/L Total Protein 5.4 L (6.3-8.2) g/dL Albumin 2.2 L (3.5-5.0) g/dL 02/26/21 02/26/21 02/26/21 Range/Units 04:48 05:48 06:38 WBC (3.8-10.6) k/uL RBC (3.80-5.40) m/uL Hgb (11.4-16.0) gm/dL Hct (34.0-46.0) % MCHC (31.0-37.0) g/dL RDW (11.5-15.5) % Neutrophils # (1.3-7.7) k/uL ABG pH 7.32 L (7.35-7.45) ABG pO2 128 H (83-108) mmHg ABG O2 Saturation 99.0 H (94-97) % Potassium (3.5-5.1) mmol/L Chloride (98-107) mmol/L Carbon Dioxide (22-30) mmol/L BUN (7-17) mg/dL Creatinine (0.52-1.04) mg/dL Glucose (74-99) mg/dL POC Glucose (mg/dL) 173 H 138 H (75-99) mg/dL Calcium (8.4-10.2) mg/dL Iron (50-170) ug/dL TIBC (228-460) ug/dL Transferrin (204.0-354.0) mg/dL AST (14-36) U/L Alkaline Phosphatase (38-126) U/L Total Protein (6.3-8.2) g/dL Albumin (3.5-5.0) g/dL 02/26/21 02/26/21 Range/Units 06:41 09:51 WBC (3.8-10.6) k/uL RBC (3.80-5.40) m/uL Hgb (11.4-16.0) gm/dL Hct (34.0-46.0) % MCHC (31.0-37.0) g/dL RDW (11.5-15.5) % Neutrophils # (1.3-7.7) k/uL ABG pH (7.35-7.45) ABG pO2 (83-108) mmHg ABG O2 Saturation (94-97) % Potassium (3.5-5.1) mmol/L Chloride (98-107) mmol/L Carbon Dioxide (22-30) mmol/L BUN (7-17) mg/dL Creatinine (0.52-1.04) mg/dL Glucose (74-99) mg/dL POC Glucose (mg/dL) 173 H 114 H (75-99) mg/dL Calcium (8.4-10.2) mg/dL Iron (50-170) ug/dL TIBC (228-460) ug/dL Transferrin (204.0-354.0) mg/dL AST (14-36) U/L Alkaline Phosphatase (38-126) U/L Total Protein (6.3-8.2) g/dL Albumin (3.5-5.0) g/dL Microbiology - Last 24 Hours (Table) 02/24/21 06:05 Blood Culture - Preliminary Blood No Growth after 48 hours 02/24/21 15:35 Blood Culture - Preliminary Blood No Growth after 24 hours Assessment and Plan Assessment: * Altered mental status due to multifactorial: anoxic encephalopathy due to cardiac arrest (34 minutes), septic encephalopathy and component of toxic- metabolic encephalopathy (her creatine is trending up, with slight elevation of AST). Off sedation since 02/20/21 at 8am. * Status post cardiac arrest, with the downtime of 34 minutes. Patient was extu bated 02/16/2021 doing quite well, following commands appropriately, and then re-intubated on 02/17/2021 due to respiratory distress. * Epic shock secondary due to methicillin sensitive staph aureus bacteremia/pneumonia. Is on antibiotic and pressors. Most current vital is hypotensive. * Acute kidney injury and is trending upward and is receiving dialysis. Received three dialysis so far. * Mild hepatopathy * Acute STEMI, * New onset atrial fibrillation vertigo to normal sinus rhythm. * History of Diabetes * History of hypothyroidism * Hypertension * CAD Plan: Repeat routine EEG on 02/24/2021: Is abnormal. The background slowing suggestive of moderate to severe encephalopathy. There are no focal slowing, epileptiform discharges or seizure on the EEG. Q2 neuro checks. Nephrology team in on board. She is getting dialysis today. Defer the rest of the medical management to the primary ICU team CONDITION: Is very guarded. Pending family decision if they want Trach and PEG vs avoiding any further intervention. The plan is discussed with the patient's nurse. Dr. Strong will resume Neurology service tomorrow AM. Dominic Chávez M.D. Neuro-Hospitalist Time with Patient: Less than 30
--- NOTE | 2021-02-26 10:53 | P.PN ---
Subjective Progress Note Date: 02/26/21 Principal diagnosis: Acute hypoxic respiratory failure secondary to auto possible cardiac arrest with prolonged down time, 34 minutes before return of spontaneous circulation. On 02/22/2022 patient seen in follow-up in intensive care unit. She remains unresponsive, she has been off sedation since 02/20/2021. She has not received any Diprivan or narcotics. She remains intubated on assist control mode of ventilation with a rate of 28, tidal volume is 400, FiO2 of 50% and PEEP of 15. This morning's blood gas shows pO2 of 85, pCO2 50, and pH of 7.29 and this was done on the above-mentioned vent settings. She is on small amount of norepinephrine, 11 mics per minute, vasopressin has been discontinued, she is on 0.9 normal saline at a rate of 20 ML per hour, no other drips. She is in sinus mechanism slightly tachycardic with a rate of 105. She has not had recurrence of A. fib. She is on aspirin and Brilinta for a recent history of stenting of the LAD 2. No other anti-coagulants at this time. Her chest x-ray today shows diffuse bilateral infiltrates that are stable in appearance, and consolidative process in the left lower lobe with a small left pleural effusion, patient was started on hemodialysis and she had hemodialysis treatments for the last 2 days. On 02/21/2021 she had 1 L of fluid removed with hemodialysis, and just ultrafiltration on 02/20/2021 with no fluid removed. Urine output is minimal in the order of 5-10 mL per hour, patient is an significantly positive net fluid balance since admission, she has significant third spacing and edema involving her upper and lower extremities and trunk. She is at least 10 kg positive since admission. Low-grade fevers overnight. T-max is 99.6F. Patient remains on cefepime for antibiotic coverage, her blood cultures from 02/17/2021 showed MSSA, follow-up blood cultures sent on 02/20/2021 and 02/21/2021 are showing gram-positive cocci in groups. Final culture is pending. Today's labs show im provement in white count which is down to 15.4, hemoglobin is 8.0, platelet count is 147, sodium is 144, potassium is 3.4, chloride is 112, B1 is 56, and creatinine is 3.74, renal profile is relatively stable, her AST is 132, slightly increased, ALT is within normal limits at 25, alkaline phosphatase is 232, her last pro-calcitonin from yesterday 02/21/2021 was still significantly elevated at 16.9. Patient did receive a dose of vancomycin a few days back, her last Vanco troph was on 02/19/2021 and was at 19.0. Neurologically patient doesn't attempt to open eyes, does not follow any purposeful command, she does have a positive corneal reflex, positive cough, negative gag, negative Babinski. CT of the brain from yesterday on 02/21/2021 showed no acute intracranial hemorrhage or midline shift, mild diffuse age-related cerebral atrophy and chronic small vessel ischemic change without significant interval change. There was worsening paranasal sinus findings possibly related to intubation versus sinusitis. Neurology is following. Reevaluated today on 02/23/21, patient remains intubated and mechanically ventilated, she is on assist control rate of 28 tidal volume 400 FiO2 50% PEEP o f 15. Remains on norepinephrine at 0.03 mcg/kg/m on insulin for 5.5 units per hour she is off sedation completely, she is not requiring any narcotics or sedatives. She is not on any paralytics. ABG showed a pO2 of 124 pCO2 47 pH of 7.30. Patient is undergoing hemodialysis during my evaluation. Chest x-ray showed bilateral infiltrates greater on the left compared to the right, I believe the findings are mostly findings of CHF not true pneumonia although the patient may have aspirated during the code. WBC count is 14.7, hemoglobin is 7.4 electrolytes are normal BUN is 82 creatinine 4.74. Patient is being followed by many consultants including cardiology and nephrology and neurology, and at this point I believe her condition is extremely poor, and I doubt if we are going to notice any neurological recovery. May have to approach family somewhat along the line regarding CODE STATUS and comfort care measures. Reevaluated today on 02/24/21, patient remains in the ICU, intubated and m echanically ventilated. She is on assist control rate of 28 tidal volume 400 FiO2 on the percent and PEEP of 15. ABG is marginal with a pO2 of 95 pCO2 49 pH of 7.33. Chest x-ray is showing worsening left lung edema and or infiltrates. Patient is supposed to be dialyzed today, and I believe that would likely improve her pulmonary status. Her FiO2 had to be increased up to 100% last night. And today we will try to titrated down and maintain O2 saturation above 90%. Renal functioning remains poor with elevated BUN elevated creatinine of 7.06. WBC count is 15.1 hemoglobin is 8.0. Patient remains empirically on antibiotics. She is also on Lovenox/DVT prophylaxis. And she is also on Sheri linta, on Protonix for GI prophylaxis. His been on off norepinephrine intermittently Reevaluated today on 02/25/21, patient remains in the ICU intubated and mechanically ventilator. She is on assist control rate of 28 tidal volume 400 FiO2 60% PEEP is 15. Today after reviewing that ABG I cut down the PEEP to 12 and I cut down the FiO2 to 50%. Patient is requiring norepinephrine at 0.07 mcg/kg/m she is also on insulin at 5.5 units per hour she is on cefazolin, IV fluids at KVO, patient is off all narcotics and sedatives, and yet there is no evidence of any neurological response whatsoever except she may slightly open her eyes to deep painful stimuli. Otherwise no purposeful responses noted whatsoever. Chest x-ray showed adequate placement of the endotracheal tube. Bilateral airspace opacities noted mostly in the left lower lobe with atelectasis ABG today showed a pO2 of 171 pCO2 49 pH of 7.3 renal functioning is worsening. patient is not receiving hemodialysis today. WBC count is 16.5 hemoglobin is 7.8. Reevaluated today on 02/26/21, patient remains in the ICU, intubated and mechanically ventilated. Have not noticed any signs of neurological recovery over the last week, patient remains practically about the same. She is now on assist control rate of 28 tidal volume 400 FiO2 50% and PEEP is 10 ABG showed a pO2 of 128 pCO2 44 pH of 7.3 to and I cut down her FiO2 to 45%. Chest x-ray continues to show bibasilar opacities, improving overall, her electrolytes are normal except for potassium of 5.8 however her BUN is 107 creatinine is 5 and the patient is about to receive dialysis sometime in the next hour or so in the ICU. Her drips include norepinephrine at 0.04 she is also on insulin at 4 units per hour and she is receiving enteral feeding/Nepro. Patient remains off narcotics and sedatives and again no signs of neurological recovery noted please refer to full neurological evaluation. Objective - Vital Signs Vital signs: Vital Signs Temp 99.7 F H 02/25/21 23:45 Pulse 116 H 02/26/21 07:28 Resp 30 H 02/26/21 06:00 BP 153/74 02/26/21 03:30 Pulse Ox 97 02/26/21 07:15 Intake & Output 02/25/21 02/26/21 02/26/21 18:59 06:59 18:59 Intake Total 2033.963 3548.115 122.533 Output Total 55 105 Balance 2446.394 3431.115 122.533 Weight 148.7 kg Intake: IV 253 369 23 Kefzol 50 PRESSURE BAGS Sodium 33 39 3 chloride 0.9 Sodium Chloride 0.9% 1, 220 230 20 000 ml @ 20 mls/hr IV . Q24H ADRIANA Rx#:[id number] ceFAZolin 2 gm In Sodium 50 Chloride 0.9% 50 ml @ 100 mls/hr IVPB Q12HR ADRIANA Rx #:[id number] Intake, IV Titration 73.543 171.115 29.533 Amount Insulin Regular 100 unit 73.543 51.017 29.533 In Sodium Chloride 0.9% 100 ml @ Per Protocol IV .Q0M ADRIANA Rx#:[id number] Norepinephrine 32 mg In 120.098 Sodium Chloride 0.9% 218 ml @ 0.05 MCG/KG/MIN 3. 202 mls/hr IV .Q24H ADRIANA Rx#:[id number] Tube Feeding 770 770 70 Other 30 30 Output: Urine 55 105 Other: Voiding Method Indwelling Catheter Indwelling Catheter ABP, PAP, CO, CI - Last Documented Arterial Blood Pressure 87/41 - Exam GENERAL EXAM: Revealed 64-year-old female obese, unresponsive to any stimuli, intubated and mechanically ventilated. HEAD: Normocephalic/atraumatic. EYES: Normal reaction of pupils, equal size. Conjunctiva pink, sclera white. NOSE: Clear with pink turbinates. THROAT: No erythema or exudates. NECK: No masses, no JVD, no thyroid enlargement, no adenopathy. CHEST: No chest wall deformity. Symmetrical expansion. LUNGS: Crackles at the bases no rhonchi and no wheezes. CVS: Regular rate and rhythm, normal S1 and S2, no gallops, no murmurs, no rubs ABDOMEN: Obese soft nontender no megaly no rebound. EXTREMITIES: 2+ bipedal edema. SKIN: No rashes CENTRAL NERVOUS SYSTEM: Unresponsive, to any stimuli, may open eyes slightly to deep painful stimuli at times. patient is comatose. - Labs CBC & Chem 7: 02/26/21 03:40 02/26/21 03:40 Labs: Abnormal Lab Results - Last 24 Hours (Table) 02/25/21 02/25/21 02/25/21 Range/Units 03:26 11:00 11:58 WBC (3.8-10.6) k/uL RBC (3.80-5.40) m/uL Hgb (11.4-16.0) gm/dL Hct (34.0-46.0) % MCHC (31.0-37.0) g/dL RDW (11.5-15.5) % Neutrophils # (1.3-7.7) k/uL ABG pH (7.35-7.45) ABG pO2 (83-108) mmHg ABG O2 Saturation (94-97) % Potassium (3.5-5.1) mmol/L Chloride (98-107) mmol/L Carbon Dioxide (22-30) mmol/L BUN (7-17) mg/dL Creatinine (0.52-1.04) mg/dL Glucose (74-99) mg/dL POC Glucose (mg/dL) 153 H 168 H (75-99) mg/dL Calcium (8.4-10.2) mg/dL Iron 24 L (50-170) ug/dL TIBC 168 L (228-460) ug/dL Transferrin 120.0 L (204.0-354.0) mg/dL AST (14-36) U/L Alkaline Phosphatase (38-126) U/L Total Protein (6.3-8.2) g/dL Albumin (3.5-5.0) g/dL 02/25/21 02/25/21 02/25/21 Range/Units 14:07 15:57 18:05 WBC (3.8-10.6) k/uL RBC (3.80-5.40) m/uL Hgb (11.4-16.0) gm/dL Hct (34.0-46.0) % MCHC (31.0-37.0) g/dL RDW (11.5-15.5) % Neutrophils # (1.3-7.7) k/uL ABG pH (7.35-7.45) ABG pO2 (83-108) mmHg ABG O2 Saturation (94-97) % Potassium (3.5-5.1) mmol/L Chloride (98-107) mmol/L Carbon Dioxide (22-30) mmol/L BUN (7-17) mg/dL Creatinine (0.52-1.04) mg/dL Glucose (74-99) mg/dL POC Glucose (mg/dL) 185 H 181 H 195 H (75-99) mg/dL Calcium (8.4-10.2) mg/dL Iron (50-170) ug/dL TIBC (228-460) ug/dL Transferrin (204.0-354.0) mg/dL AST (14-36) U/L Alkaline Phosphatase (38-126) U/L Total Protein (6.3-8.2) g/dL Albumin (3.5-5.0) g/dL 02/25/21 02/25/21 02/25/21 Range/Units 20:24 22:00 23:57 WBC (3.8-10.6) k/uL RBC (3.80-5.40) m/uL Hgb (11.4-16.0) gm/dL Hct (34.0-46.0) % MCHC (31.0-37.0) g/dL RDW (11.5-15.5) % Neutrophils # (1.3-7.7) k/uL ABG pH (7.35-7.45) ABG pO2 (83-108) mmHg ABG O2 Saturation (94-97) % Potassium (3.5-5.1) mmol/L Chloride (98-107) mmol/L Carbon Dioxide (22-30) mmol/L BUN (7-17) mg/dL Creatinine (0.52-1.04) mg/dL Glucose (74-99) mg/dL POC Glucose (mg/dL) 224 H 203 H 191 H (75-99) mg/dL Calcium (8.4-10.2) mg/dL Iron (50-170) ug/dL TIBC (228-460) ug/dL Transferrin (204.0-354.0) mg/dL AST (14-36) U/L Alkaline Phosphatase (38-126) U/L Total Protein (6.3-8.2) g/dL Albumin (3.5-5.0) g/dL 02/26/21 02/26/21 02/26/21 Range/Units 02:11 03:40 03:40 WBC 16.5 H (3.8-10.6) k/uL RBC 2.67 L (3.80-5.40) m/uL Hgb 7.6 L (11.4-16.0) gm/dL Hct 25.4 L (34.0-46.0) % MCHC 30.1 L (31.0-37.0) g/dL RDW 17.0 H (11.5-15.5) % Neutrophils # 14.3 H (1.3-7.7) k/uL ABG pH (7.35-7.45) ABG pO2 (83-108) mmHg ABG O2 Saturation (94-97) % Potassium 5.8 H (3.5-5.1) mmol/L Chloride 108 H (98-107) mmol/L Carbon Dioxide 21 L (22-30) mmol/L BUN 107 H* (7-17) mg/dL Creatinine 5.02 H (0.52-1.04) mg/dL Glucose 170 H (74-99) mg/dL POC Glucose (mg/dL) 175 H (75-99) mg/dL Calcium 7.1 L (8.4-10.2) mg/dL Iron (50-170) ug/dL TIBC (228-460) ug/dL Transferrin (204.0-354.0) mg/dL AST 195 H (14-36) U/L Alkaline Phosphatase 298 H (38-126) U/L Total Protein 5.4 L (6.3-8.2) g/dL Albumin 2.2 L (3.5-5.0) g/dL 02/26/21 02/26/21 02/26/21 Range/Units 04:48 05:48 06:38 WBC (3.8-10.6) k/uL RBC (3.80-5.40) m/uL Hgb (11.4-16.0) gm/dL Hct (34.0-46.0) % MCHC (31.0-37.0) g/dL RDW (11.5-15.5) % Neutrophils # (1.3-7.7) k/uL ABG pH 7.32 L (7.35-7.45) ABG pO2 128 H (83-108) mmHg ABG O2 Saturation 99.0 H (94-97) % Potassium (3.5-5.1) mmol/L Chloride (98-107) mmol/L Carbon Dioxide (22-30) mmol/L BUN (7-17) mg/dL Creatinine (0.52-1.04) mg/dL Glucose (74-99) mg/dL POC Glucose (mg/dL) 173 H 138 H (75-99) mg/dL Calcium (8.4-10.2) mg/dL Iron (50-170) ug/dL TIBC (228-460) ug/dL Transferrin (204.0-354.0) mg/dL AST (14-36) U/L Alkaline Phosphatase (38-126) U/L Total Protein (6.3-8.2) g/dL Albumin (3.5-5.0) g/dL 02/26/21 02/26/21 Range/Units 06:41 09:51 WBC (3.8-10.6) k/uL RBC (3.80-5.40) m/uL Hgb (11.4-16.0) gm/dL Hct (34.0-46.0) % MCHC (31.0-37.0) g/dL RDW (11.5-15.5) % Neutrophils # (1.3-7.7) k/uL ABG pH (7.35-7.45) ABG pO2 (83-108) mmHg ABG O2 Saturation (94-97) % Potassium (3.5-5.1) mmol/L Chloride (98-107) mmol/L Carbon Dioxide (22-30) mmol/L BUN (7-17) mg/dL Creatinine (0.52-1.04) mg/dL Glucose (74-99) mg/dL POC Glucose (mg/dL) 173 H 114 H (75-99) mg/dL Calcium (8.4-10.2) mg/dL Iron (50-170) ug/dL TIBC (228-460) ug/dL Transferrin (204.0-354.0) mg/dL AST (14-36) U/L Alkaline Phosphatase (38-126) U/L Total Protein (6.3-8.2) g/dL Albumin (3.5-5.0) g/dL Microbiology - Last 24 Hours (Table) 02/24/21 06:05 Blood Culture - Preliminary Blood No Growth after 48 hours 02/24/21 15:35 Blood Culture - Preliminary Blood No Growth after 24 hours Assessment and Plan Assessment: Impression: Acute hypoxic respiratory failure secondary to cardiac arrest with prolonged downtime of 34 minutes until return of spontaneous circulation. Intubated on 02/13 , extubated on 02/16 reintubated on 02/17 and he remains intubated and unresponsive. Possible septic shock secondary to MSSA bacteremia patient remains on antibiotics. Did receive vancomycin she is now on cefazolin had elevated pro calcitonin level. Required pressors for low blood pressure. Remains on norepinephrine Suspect acute metabolic encephalopathy and anoxic brain injury Acute anterior wall myocardial infarction status post LAD the stenting on 02/13 Type 2 diabetes Benign essential hypertension Hypothyroidism Morbid obesity History of coronary artery disease New-onset atrial fibrillation History of marijuana smoking Recommendation: Continue ventilatory support, assist control rate 28th tidal volume of 400 FiO2 down to 45% PEEP is 10 Keep patient off sedation completely Continue dialysis Continue antibiotics for possible cultures, placed on cefazolin. Infectious disease on the case. Patient remains critically ill Continue GI and DVT prophylaxis. Prognosis is guarded, obviously the patient sustained significant anoxic brain injury. May have to discuss with family CODE STATUS and possibly comfort care measures in the next 24 hours if no neurological improvement. Critical care time is over 30 minutes. Time with Patient: Greater than 30
--- NOTE | 2021-02-26 11:19 | PN ---
PROGRESS NOTE Patient is seen for followup for acute kidney injury. She currently remains on the vent. Patient is off of sedation. Mentation has not improved. FiO2 is at 50%. Patient is currently seen on dialysis, tolerating her treatment well. Blood pressure had been low, currently staying at about 100 mmHg systolic. Heart rate 117 per minute. Patient is afebrile. On examination, bilateral breath sounds are heard. Abdomen is soft. Examination of lower extremities shows significant edema with blisters noted. [employer] exam shows patient is unresponsive. She does not respond to verbal stimuli. Labs show sodium 141, potassium 5.8, chloride 108, BUN 107, serum creatinine 5.0, hemoglobin 7.6. ASSESSMENT: 1. Acute kidney injury, acute tubular necrosis, oliguric, currently dialysis- dependent. Will maintain on daily dialysis. 2. Hyperkalemia associated with acute kidney injury. Expect improvement post dialysis. 3. Acute hypoxic respiratory failure, currently maintained on the vent. 4. MSSA bacteremia, source possibly pneumonia. Consider endocarditis. Patient is being followed by ID. 5. Metabolic acidosis, now improved. 6. Volume overload. PLAN: Continue with daily treatments. Increase UF as tolerated. Continue with Aranesp. Minimize fluids. MMODL / IJN: [id number] /
[2021-02-26 11:38] LABS: Glucose,Whole Blood 154 mg/dL (75-99)
--- NOTE | 2021-02-26 17:16 | P.PN ---
Subjective This is a pleasant 65 years old female with past medical history of Coronary Artery Disease , Diabetes Mellitus, GERD, Hypertension, hypothyroidism. She is a patient of Dr. Brambila Patient presents with unresponsiveness and and cardiac arrest. CPR was ongoing through EMS, patient was found in ventricular fibrillation per EMS, Pt was given 5 epi, 5 shocks and 450mg of Amniodarone. Pt did have ROSC for a few minutes but when arriving to ER no pulse present. In the emergency room patient got intubated and placed on mechanical ventilation. Initial vitals showed temperature 97.3, heart rate 79, breathing rate 16, blood pressure 118/71 and 92/62 and she was saturating 96% on mechanical ventilation Labs were showing leukocytosis of 20.5 K. INR 2.7 PH 7.2, pCO2 47 and pO2 59. Sodium 137, low potassium 2.8, normal creatinine 0.9. Glucose elevated to 65. Liver enzymes slightly elevated with AST 83 and ALT 36. Trending up troponin 0.02, 9.4 and 23.9. Coronavirus chest x-ray: Status post intubation. There may be underlying pulmonary edema or pneumonia. Repeat fracture noted on the left Nondetected. EKG showing ST elevation in anterior septal leads V1 to V4 Patient was taken to emergent cardiac cath and she underwent cardiac cathete rization with PCI to the totally occluded proximal LAD. After the procedure patient was placed on aspirin, Brillinta ,and beta beni, GONZALEZ inhibitor and statin Today patient is still intubated in the ICU, and on mechanical ventilation. She has PEEP of 10, FiO2 of 40%, tidal volume 375, she has sinus rhythm at 90 bpm, she has a Mcneil and OG tube. She has normal saline running at 50 mL per hour 02/15/2021 ICU intubated and sedated with pulmonary/critical care team followed closely Patient failed sedation trial yesterday and today. Neurology team on the case PEG showing no epileptiform discharge Ejection fraction is 50-55% Chest x-ray no change from yesterday Labs reviewed, WBC down to 14 K, INR down to normal at 1.5 Patient remains on aspirin and Brilinta Continue with gentle hydration, lisinopril, metoprolol and Aldactone with cardiology and nephrology followed the patient closely 02/16/2021 Patient remains in the ICU intubated and sedated. She is undergoing sedation holiday today as well with possible extubation that are on. She is developing fever of 100.4, her WBCs 15 K. EEG showing no epileptiform discharge. Chest x-ray showing increased perihilar opacity. There are sputum culture, proteincalcitonin. Patient is kept on aspirin and Brilinta and gentle hydration. 02/17/2021 Yesterday patient got extubated and she was doing relatively well until during the night when her respiratory status Worsened and by the morning she has to be intubated again for tachypnea and tachycardia and now she is again on mechanical ventilation. Also patient is a spiking a fever and 102 most likely secondary to pneumonia and patient was started on cefepime with culture has been requested from blood and sputum. 02/18/2021 Today patient still intubated and sedated, she still on mechanical ventilation. With pulmonary/critical care team monitor her closely and following her She is developing pneumonia with sepsis status progressed into septic shock, blood culture and sputum culture are growing staph aureus pending final culture results patient was started on IV vancomycin as well as cefepime. her blood pressure started dropping and she needed levothroid, her creatinine trending up and she is developing oliguria as per last hour she made only 5 ml/h when i checked with the night nurse. therefore 1 l liter of bolus is provided. her sugar is elevated more than 300 and if this not improving she might need to be started on insulin drip. her leukocytosis is at 14 k, creatinine trending up to 1.2. she still has a fever of 102 today. Remains on aspirin and Brilinta, pulmonary/critical care team and cardiology teams on the case 02/19/2021 Patient remains in critical condition needs mechanical ventilation on Levophed for her septic shock secondary to MSSA septicemia and pneumonia with positive sputum on blood culture Her antibiotics were adjusted today about pulmonary/critical care team into Levaquin while they discontinued cefepime and IV vancomycin. Patient still running high fever at 102. And she is becoming oliguric with acute kidney injury creatinine trending up to 2.7. Nephrology consult was obtained as she might need dialysis down the road if no improvement. Chest x-ray shows slight worsening on the right side or an changed. When I reviewed by myself. Antibiotics has just adjusted as above. Also she is on normal saline at 50 mm, insulin drip and pressors. Also she is on aspirin, Brilinta for her new ostomy 02/20/2021 Patient remains intubated and sedated in the ICU. She still in critical condition. She is currently in septic shock secondary to MSSA pneumonia and bacteremia. She's been covered with broad-spectrum antibiotics of Levaquin and cefepime. Continue with IV fluid normal sign 75 and pressors with levophed and vasopressin Also he is on insulin drip. Labs showed leukocytosis of 15.6. Creatinine trending up to 3.7 and patient is oliguric. Patient is started on hemodialysis today, second hemodialysis tomorrow 02/21/2021 Patients with septic shock secondary to MSSA pneumonia and septicemia status post cardiac arrest on arrival to the emergency room, resuscitated and currently intubated in the ICU. She developed oliguric renal failure undergoing hemodialysis. She was taken off sedation with no much response, therefore neurologist is involved and she is having negative CT of the brain. Plan to repeat EEG tomorrow Other than that she remains critically ill in the ICU and kept on broad-spectrum antibiotics with cefepime and Levaquin, aspirin and Brilinta Today DC'd her Levaquin Continue with insulin and drip 02/22/2021 Patient remains in septic shock and respiratory failure requiring intubation and mechanical ventilation. Several consultants on the case including pulmonary/critical care team, nephrology, cardiology, neurology. She still needs pressors. Patient has been afebrile for more than 48 hours but her blood culture showing persistent staff. She received 1 dose of IV vancomycin on the top of cefepime and Levaquin. Infectious disease team were consulted today. WBC is 15 K, creatinine 3.7 and she is undergoing hemodialysis today and tomorrow as she is anuric. Glucose controlled on insulin drip. Hemoglobin is stable at 8.0. She is on aspirin and Brilinta given her cardiac arrest upon admission. Prognosis remains guarded 02/23/2021 Patient critically air in the ICU with pulmonary/critical care team monitor her closely and help with vent management. It looks patient brain function is not showing good response while off sedation with neurology team on the case and recommended repeat EEG. Other than that she remains on FiO2 of 50%, she is tachypneic every 2 and afebrile. WBC today 14.7, creatinine 4.7. Hemoglobin 7.4. Antibiotics were adjusted to cefazolin today. Patient did not cut hemodialysis yesterday, she will Probably 1 today. Continue with aspirin Brilinta, with assistant store leader team on the case 02/24/2021 Patient is intubated and sedated. However she underwent an still with of sedation with no significant change in her mental status but the septum time she is septic with positive blood culture for staph, sensitive been covered with cefazolin. She still has a fever today of 100.5. Her FiO2 actually went up to 80% today. Distal tachypneic around 30. Chest x-ray showing worsening left lung infiltrate compared to yesterday. Neurology still in the process offices in mental status. Repeat EEG today is pending. She remains on cefazolin, aspirin and Brilinta. She's getting hemodialysis daily with nephrology team of the case 02/25/2021 Patient remains in the ICU intubated on mechanical ventilation while she is off sedation she does not make good progress mentally. Neurologic service following her closely. First EEG was negative, patient had a repeat EEG and result is pending. She still needs pressors. She has infection with staph aureus and her blood and pneumonia. Chest x-ray showing bilateral airspace opacity and left lower lobe opacity near complete collapse, slight improvement. She has a fever today 100.5. Tachypneic as expected and 31. She is tachycardic at 111, Her FiO2 to 60%. Peep 15. Labs reviewed. Hemoglobin 7.4. Creatinine 4.0. WBC 13.[address] Santos gait. No hemodialysis today and resume it tomorrow per product assurance engineer. Continue cefazolin, insulin drip at 5.5 units per hour, she's on levophed at 0.07 this morning. No IV fluids 02/26/2021 Patient on the ICU on mechanical ventilation. No signs of neurological recovery. EEG showing no epileptiform discharge suspect seizure. Anoxic brain injury is highly suspected as patient with no recovery. At this point conditions needs to be discussed with the family about all of care. Other than that she remains on levophed at 0.04 this morning, no IV fluid. Still on insulin drip at 4 units per hour. Labs reviewed. Hemoglobin 7.6. Chest x-ray no change. Patient remains on cefazolin, aspirin and Brilinta Objective - Vital Signs Vital signs: Vital Signs Temp 99.7 F H 02/25/21 23:45 Pulse 120 H 02/26/21 11:37 Resp 30 H 02/26/21 06:00 BP 153/74 02/26/21 03:30 Pulse Ox 97 02/26/21 07:15 Intake & Output 02/25/21 02/26/21 02/26/21 18:59 06:59 18:59 Intake Total 3668.256 1156.115 122.533 Output Total 55 105 Balance 2586.922 8617.115 122.533 Weight 148.7 kg Intake: IV 253 369 23 Kefzol 50 PRESSURE BAGS Sodium 33 39 3 chloride 0.9 Sodium Chloride 0.9% 1, 220 230 20 000 ml @ 20 mls/hr IV . Q24H ADRIANA Rx#:[id number] ceFAZolin 2 gm In Sodium 50 Chloride 0.9% 50 ml @ 100 mls/hr IVPB Q12HR [facility]RIANA Rx #:[id number] Intake, IV Titration 73.543 171.115 29.533 Amount Insulin Regular 100 unit 73.543 51.017 29.533 In Sodium Chloride 0.9% 100 ml @ Per Protocol IV .Q0M ADRIANA Rx#:[id number] Norepinephrine 32 mg In 120.098 Sodium Chloride 0.9% 218 ml @ 0.05 MCG/KG/MIN 3. 202 mls/hr IV .Q24H ADRIANA Rx#:[id number] Tube Feeding 770 770 70 Other 30 30 Output: Urine 55 105 Other: Voiding Method Indwelling Catheter Indwelling Catheter ABP, PAP, CO, CI - Last Documented Arterial Blood Pressure 87/41 - Exam -GENERAL: The patient is sedated and intubated, not in any acute distress. morbidly obese HEENT: Pupils are round and equally reacting to light. EOMI. No scleral icterus. No conjunctival pallor. Normocephalic, atraumatic. No pharyngeal erythema. No thyromegaly. CARDIOVASCULAR: S1 and S2 present. No murmurs, rubs, or gallops. PULMONARY: Chest is clear to auscultation, no wheezing. ABDOMEN: Soft, nontender, nondistended, normoactive bowel sounds. No palpable organomegaly. MUSCULOSKELETAL: No joint swelling or deformity. EXTREMITIES: No cyanosis, clubbing, or pedal edema. NEUROLOGICAL: Gross neurological examination did not reveal any focal deficits. SKIN: No rashes. no petechiae. - Labs CBC & Chem 7: 02/26/21 03:40 02/26/21 03:40 Labs: Abnormal Lab Results - Last 24 Hours (Table) 02/25/21 02/25/21 02/25/21 Range/Units 03:26 14:07 15:57 WBC (3.8-10.6) k/uL RBC (3.80-5.40) m/uL Hgb (11.4-16.0) gm/dL Hct (34.0-46.0) % MCHC (31.0-37.0) g/dL RDW (11.5-15.5) % Neutrophils # (1.3-7.7) k/uL ABG pH (7.35-7.45) ABG pO2 (83-108) mmHg ABG O2 Saturation (94-97) % Potassium (3.5-5.1) mmol/L Chloride (98-107) mmol/L Carbon Dioxide (22-30) mmol/L BUN (7-17) mg/dL Creatinine (0.52-1.04) mg/dL Glucose (74-99) mg/dL POC Glucose (mg/dL) 185 H 181 H (75-99) mg/dL Calcium (8.4-10.2) mg/dL Iron 24 L (50-170) ug/dL TIBC 168 L (228-460) ug/dL Transferrin 120.0 L (204.0-354.0) mg/dL AST (14-36) U/L Alkaline Phosphatase (38-126) U/L Total Protein (6.3-8.2) g/dL Albumin (3.5-5.0) g/dL 02/25/21 02/25/21 02/25/21 Range/Units 18:05 20:24 22:00 WBC (3.8-10.6) k/uL RBC (3.80-5.40) m/uL Hgb (11.4-16.0) gm/dL Hct (34.0-46.0) % MCHC (31.0-37.0) g/dL RDW (11.5-15.5) % Neutrophils # (1.3-7.7) k/uL ABG pH (7.35-7.45) ABG pO2 (83-108) mmHg ABG O2 Saturation (94-97) % Potassium (3.5-5.1) mmol/L Chloride (98-107) mmol/L Carbon Dioxide (22-30) mmol/L BUN (7-17) mg/dL Creatinine (0.52-1.04) mg/dL Glucose (74-99) mg/dL POC Glucose (mg/dL) 195 H 224 H 203 H (75-99) mg/dL Calcium (8.4-10.2) mg/dL Iron (50-170) ug/dL TIBC (228-460) ug/dL Transferrin (204.0-354.0) mg/dL AST (14-36) U/L Alkaline Phosphatase (38-126) U/L Total Protein (6.3-8.2) g/dL Albumin (3.5-5.0) g/dL 02/25/21 02/26/21 02/26/21 Range/Units 23:57 02:11 03:40 WBC 16.5 H (3.8-10.6) k/uL RBC 2.67 L (3.80-5.40) m/uL Hgb 7.6 L (11.4-16.0) gm/dL Hct 25.4 L (34.0-46.0) % MCHC 30.1 L (31.0-37.0) g/dL RDW 17.0 H (11.5-15.5) % Neutrophils # 14.3 H (1.3-7.7) k/uL ABG pH (7.35-7.45) ABG pO2 (83-108) mmHg ABG O2 Saturation (94-97) % Potassium (3.5-5.1) mmol/L Chloride (98-107) mmol/L Carbon Dioxide (22-30) mmol/L BUN (7-17) mg/dL Creatinine (0.52-1.04) mg/dL Glucose (74-99) mg/dL POC Glucose (mg/dL) 191 H 175 H (75-99) mg/dL Calcium (8.4-10.2) mg/dL Iron (50-170) ug/dL TIBC (228-460) ug/dL Transferrin (204.0-354.0) mg/dL AST (14-36) U/L Alkaline Phosphatase (38-126) U/L Total Protein (6.3-8.2) g/dL Albumin (3.5-5.0) g/dL 02/26/21 02/26/21 02/26/21 Range/Units 03:40 04:48 05:48 WBC (3.8-10.6) k/uL RBC (3.80-5.40) m/uL Hgb (11.4-16.0) gm/dL Hct (34.0-46.0) % MCHC (31.0-37.0) g/dL RDW (11.5-15.5) % Neutrophils # (1.3-7.7) k/uL ABG pH 7.32 L (7.35-7.45) ABG pO2 128 H (83-108) mmHg ABG O2 Saturation 99.0 H (94-97) % Potassium 5.8 H (3.5-5.1) mmol/L Chloride 108 H (98-107) mmol/L Carbon Dioxide 21 L (22-30) mmol/L BUN 107 H* (7-17) mg/dL Creatinine 5.02 H (0.52-1.04) mg/dL Glucose 170 H (74-99) mg/dL POC Glucose (mg/dL) 173 H (75-99) mg/dL Calcium 7.1 L (8.4-10.2) mg/dL Iron (50-170) ug/dL TIBC (228-460) ug/dL Transferrin (204.0-354.0) mg/dL AST 195 H (14-36) U/L Alkaline Phosphatase 298 H (38-126) U/L Total Protein 5.4 L (6.3-8.2) g/dL Albumin 2.2 L (3.5-5.0) g/dL 02/26/21 02/26/21 02/26/21 Range/Units 06:38 06:41 09:51 WBC (3.8-10.6) k/uL RBC (3.80-5.40) m/uL Hgb (11.4-16.0) gm/dL Hct (34.0-46.0) % MCHC (31.0-37.0) g/dL RDW (11.5-15.5) % Neutrophils # (1.3-7.7) k/uL ABG pH (7.35-7.45) ABG pO2 (83-108) mmHg ABG O2 Saturation (94-97) % Potassium (3.5-5.1) mmol/L Chloride (98-107) mmol/L Carbon Dioxide (22-30) mmol/L BUN (7-17) mg/dL Creatinine (0.52-1.04) mg/dL Glucose (74-99) mg/dL POC Glucose (mg/dL) 138 H 173 H 114 H (75-99) mg/dL Calcium (8.4-10.2) mg/dL Iron (50-170) ug/dL TIBC (228-460) ug/dL Transferrin (204.0-354.0) mg/dL AST (14-36) U/L Alkaline Phosphatase (38-126) U/L Total Protein (6.3-8.2) g/dL Albumin (3.5-5.0) g/dL 02/26/21 Range/Units 11:37 WBC (3.8-10.6) k/uL RBC (3.80-5.40) m/uL Hgb (11.4-16.0) gm/dL Hct (34.0-46.0) % MCHC (31.0-37.0) g/dL RDW (11.5-15.5) % Neutrophils # (1.3-7.7) k/uL ABG pH (7.35-7.45) ABG pO2 (83-108) mmHg ABG O2 Saturation (94-97) % Potassium (3.5-5.1) mmol/L Chloride (98-107) mmol/L Carbon Dioxide (22-30) mmol/L BUN (7-17) mg/dL Creatinine (0.52-1.04) mg/dL Glucose (74-99) mg/dL POC Glucose (mg/dL) 154 H (75-99) mg/dL Calcium (8.4-10.2) mg/dL Iron (50-170) ug/dL TIBC (228-460) ug/dL Transferrin (204.0-354.0) mg/dL AST (14-36) U/L Alkaline Phosphatase (38-126) U/L Total Protein (6.3-8.2) g/dL Albumin (3.5-5.0) g/dL Microbiology - Last 24 Hours (Table) 02/24/21 06:05 Blood Culture - Preliminary Blood No Growth after 48 hours 02/24/21 15:35 Blood Culture - Preliminary Blood No Growth after 24 hours Assessment and Plan Assessment: Acute anteroseptal STEMI most likely anoxic brain injury with no improvement in the neurological status Cardiac arrest, status post ventricular fibrillation status post CPR and return of circulation Acute hypoxic respiratory failure needing intubation and mechanical ventilation Sepsis secondary to pneumonia with fever and leukocytosis, developing into septic shock secondary to MSSA in the sputum and blood Metabolic acidosis acute kidney injury with oliguria requiring hemodialysis unresponsiveness off sedation concerning for ischemic brain injury Possible pulmonary edema Leukocytosis, secondary to above Left fracture secondary to CPR Coagulopathy with INR 2.7 upon admission, resolved Hypertension Hypothyroidism Diabetes mellitus History of GERD History of coronary artery disease Morbidly obese. BMI 45.8 Plan: This is a 65 years old female who presents with STEMI and cardiac arrest status post CPR and intubation, underwent cardiac cath and PCI to LAD Continue with aspirin, brillinta Continue with Intubation and mechanical ventilation with pulmonary/critical care team consult with possible extubation. Pulmonary team Antibiotics were adjusted to cefepime. Nephrology consult. Continue with hemodialysis per her product assurance engineer Bumper Operator on the case Neurologist consulted. Infectious disease consult need to discuss plan of care with family about the goals of treatment Labs and medication were reviewed.. Continue same treatment. Continue with symptomatic treatment. Resume home medication. Monitor lytes and vitals. DVT and GI prophylaxis. Further recommendations as per clinical course of the patient DVT prophylaxis: Aspirin and brillinta GI Prophylaxis: Pepcid Prognosis is guardedThanks very poor
[2021-02-26 17:56] LABS: Glucose,Whole Blood 195 mg/dL (75-99)
[2021-02-26] MEDS: SODIUM CHLORIDE 0.9% 1,000 ML IV SCH (18:11)
[2021-02-26 20:19] LABS: Glucose,Whole Blood 165 mg/dL (75-99)
[2021-02-26] MEDS: INSULIN REGULAR 100 UNIT in SODIUM CHLORIDE 0.9% 100 ML IV SCH (20:23)
[2021-02-26] MEDS: ATORVASTATIN 80 MG TAB PO SCH (20:45)
[2021-02-26 22:34] LABS: Glucose,Whole Blood 156 mg/dL (75-99)
--- NOTE | 2021-02-26 23:46 | PN ---
PROGRESS NOTE DATE OF SERVICE: 02/26/2021 REASON FOR FOLLOWUP: MSSA bacteremia source likely pneumonia. INTERVAL HISTORY: The patient is afebrile. The patient is hemodynamically stable. FiO2 is currently stable at 45%. No significant purulent secretions thru the ET, diarrhea or any other changes reported by the nursing staff. PHYSICAL EXAMINATION: Blood pressure 112/47, pulse 100, temperature 98, she is 90% on 45% FiO2. General description is a middle-aged female intubated on the vent. Respiratory system: Unlabored breathing with decreased intensity in breath sounds. No wheeze. Heart S1, S2. Regular rate and rhythm. Abdomen soft, no tenderness. LABS: Blood culture repeat on February 24, has been negative so far. White count is elevated to 16.5. DIAGNOSTIC IMPRESSION AND PLAN: Patient with MSSA bacteremia, source likely pneumonia. Follow up blood culture has been negative. White count still elevated. Cultures will be repeated. Continue cefazolin and monitor clinical course closely. MMODL / IJN: [id number] /
[2021-02-27 00:02] LABS: Glucose,Whole Blood 173 mg/dL (75-99)
[2021-02-27 01:59] LABS: Glucose,Whole Blood 139 mg/dL (75-99)
[2021-02-27 04:03] LABS: Glucose,Whole Blood 209 mg/dL (75-99)
[2021-02-27 04:29] LABS: Anisocytosis Slight; HCT 23.3 % (34.0-46.0); HGB 7.1 gm/dL (11.4-16.0); Hypochromasia Marked; MCH 29.4 pg (25.0-35.0); MCHC 30.7 g/dL (31.0-37.0); MCV 95.8 fL (80.0-100.0); Mean Platelet Volume 9.6; Platelet Count 252 k/uL (150-450); RBC 2.43 m/uL (3.80-5.40); RDW 17.2 % (11.5-15.5); WBC 17.2 k/uL (3.8-10.6)
[2021-02-27] MEDS: IPRATROPIUM-ALBUTEROL 3 ML NEB INHALATION SCH ×5 (04:29→19:48)
[2021-02-27 05:19] LABS: Calcium 7.3 mg/dL (8.4-10.2); Total Bilirubin 0.3 mg/dL (0.2-1.3); Total Protein 5.2 g/dL (6.3-8.2)
[2021-02-27 05:52] LABS: Glucose,Whole Blood 202 mg/dL (75-99)
[2021-02-27 06:05] LABS: ABG Base Excess -2.5 mmol/L; ABG HCO3 24 mmol/L (21-25); ABG Oxygen Saturation 97.7 % (94-97); ABG PCO2 47 mmHg (35-45); ABG PH 7.31 (7.35-7.45); ABG PO2 107 mmHg (83-108); ABG TCO2 25 mmol/L (19-24); Allen Test Performed? Yes
[2021-02-27] MEDS: LEVOTHYROXINE 100 MCG TAB PO SCH (07:13)
[2021-02-27 08:15] LABS: Glucose,Whole Blood 201 mg/dL (75-99)
[2021-02-27] MEDS: ENOXAPARIN 30 MG/0.3 ML SYRINGE SQ SCH (08:20)
[2021-02-27] MEDS: CHLORHEXIDINE GLUCONATE 15 ML CUP MUCOUS MEM SCH ×2 (08:20→21:17)
[2021-02-27] MEDS: ASPIRIN 81 MG PO SCH (08:21)
[2021-02-27] MEDS: TICAGRELOR 90 MG TAB PO SCH ×2 (08:21→21:18)
[2021-02-27] MEDS: PANTOPRAZOLE 40 MG/10 ML VIAL IVP SCH (08:21)
[2021-02-27 10:01] LABS: Glucose,Whole Blood 124 mg/dL (75-99)
[2021-02-27] MEDS: NOREPINEPHRINE 32 MG in SODIUM CHLORIDE 0.9% 218 ML IV SCH (10:01)
[2021-02-27 11:28] LABS: Glucose,Whole Blood 121 mg/dL (75-99)
[2021-02-27 11:57] LABS: Glucose,Whole Blood 144 mg/dL (75-99)
--- NOTE | 2021-02-27 12:35 | P.PN ---
Subjective Progress Note Date: 02/27/21 Principal diagnosis: Acute hypoxic respiratory failure secondary to auto possible cardiac arrest with prolonged down time, 34 minutes before return of spontaneous circulation. On 02/22/2022 patient seen in follow-up in intensive care unit. She remains unresponsive, she has been off sedation since 02/20/2021. She has not received any Diprivan or narcotics. She remains intubated on assist control mode of ventilation with a rate of 28, tidal volume is 400, FiO2 of 50% and PEEP of 15. This morning's blood gas shows pO2 of 85, pCO2 50, and pH of 7.29 and this was done on the above-mentioned vent settings. She is on small amount of norepinephrine, 11 mics per minute, vasopressin has been discontinued, she is on 0.9 normal saline at a rate of 20 ML per hour, no other drips. She is in sinus mechanism slightly tachycardic with a rate of 105. She has not had recurrence of A. fib. She is on aspirin and Brilinta for a recent history of stenting of the LAD 2. No other anti-coagulants at this time. Her chest x-ray today shows diffuse bilateral infiltrates that are stable in appearance, and consolidative process in the left lower lobe with a small left pleural effusion, patient was started on hemodialysis and she had hemodialysis treatments for the last 2 days. On 02/21/2021 she had 1 L of fluid removed with hemodialysis, and just ultrafiltration on 02/20/2021 with no fluid removed. Urine output is minimal in the order of 5-10 mL per hour, patient is an significantly positive net fluid balance since admission, she has significant third spacing and edema involving her upper and lower extremities and trunk. She is at least 10 kg positive since admission. Low-grade fevers overnight. T-max is 99.6F. Patient remains on cefepime for antibiotic coverage, her blood cultures from 02/17/2021 showed MSSA, follow-up blood cultures sent on 02/20/2021 and 02/21/2021 are showing gram-positive cocci in groups. Final culture is pending. Today's labs show im provement in white count which is down to 15.4, hemoglobin is 8.0, platelet count is 147, sodium is 144, potassium is 3.4, chloride is 112, B1 is 56, and creatinine is 3.74, renal profile is relatively stable, her AST is 132, slightly increased, ALT is within normal limits at 25, alkaline phosphatase is 232, her last pro-calcitonin from yesterday 02/21/2021 was still significantly elevated at 16.9. Patient did receive a dose of vancomycin a few days back, her last Vanco troph was on 02/19/2021 and was at 19.0. Neurologically patient doesn't attempt to open eyes, does not follow any purposeful command, she does have a positive corneal reflex, positive cough, negative gag, negative Babinski. CT of the brain from yesterday on 02/21/2021 showed no acute intracranial hemorrhage or midline shift, mild diffuse age-related cerebral atrophy and chronic small vessel ischemic change without significant interval change. There was worsening paranasal sinus findings possibly related to intubation versus sinusitis. Neurology is following. Reevaluated today on 02/23/21, patient remains intubated and mechanically ventilated, she is on assist control rate of 28 tidal volume 400 FiO2 50% PEEP o f 15. Remains on norepinephrine at 0.03 mcg/kg/m on insulin for 5.5 units per hour she is off sedation completely, she is not requiring any narcotics or sedatives. She is not on any paralytics. ABG showed a pO2 of 124 pCO2 47 pH of 7.30. Patient is undergoing hemodialysis during my evaluation. Chest x-ray showed bilateral infiltrates greater on the left compared to the right, I believe the findings are mostly findings of CHF not true pneumonia although the patient may have aspirated during the code. WBC count is 14.7, hemoglobin is 7.4 electrolytes are normal BUN is 82 creatinine 4.74. Patient is being followed by many consultants including cardiology and nephrology and neurology, and at this point I believe her condition is extremely poor, and I doubt if we are going to notice any neurological recovery. May have to approach family somewhat along the line regarding CODE STATUS and comfort care measures. Reevaluated today on 02/24/21, patient remains in the ICU, intubated and m echanically ventilated. She is on assist control rate of 28 tidal volume 400 FiO2 on the percent and PEEP of 15. ABG is marginal with a pO2 of 95 pCO2 49 pH of 7.33. Chest x-ray is showing worsening left lung edema and or infiltrates. Patient is supposed to be dialyzed today, and I believe that would likely improve her pulmonary status. Her FiO2 had to be increased up to 100% last night. And today we will try to titrated down and maintain O2 saturation above 90%. Renal functioning remains poor with elevated BUN elevated creatinine of 7.06. WBC count is 15.1 hemoglobin is 8.0. Patient remains empirically on antibiotics. She is also on Lovenox/DVT prophylaxis. And she is also on Sheri linta, on Protonix for GI prophylaxis. His been on off norepinephrine intermittently Reevaluated today on 02/25/21, patient remains in the ICU intubated and mechanically ventilator. She is on assist control rate of 28 tidal volume 400 FiO2 60% PEEP is 15. Today after reviewing that ABG I cut down the PEEP to 12 and I cut down the FiO2 to 50%. Patient is requiring norepinephrine at 0.07 mcg/kg/m she is also on insulin at 5.5 units per hour she is on cefazolin, IV fluids at KVO, patient is off all narcotics and sedatives, and yet there is no evidence of any neurological response whatsoever except she may slightly open her eyes to deep painful stimuli. Otherwise no purposeful responses noted whatsoever. Chest x-ray showed adequate placement of the endotracheal tube. Bilateral airspace opacities noted mostly in the left lower lobe with atelectasis ABG today showed a pO2 of 171 pCO2 49 pH of 7.3 renal functioning is worsening. patient is not receiving hemodialysis today. WBC count is 16.5 hemoglobin is 7.8. Reevaluated today on 02/26/21, patient remains in the ICU, intubated and mechanically ventilated. Have not noticed any signs of neurological recovery over the last week, patient remains practically about the same. She is now on assist control rate of 28 tidal volume 400 FiO2 50% and PEEP is 10 ABG showed a pO2 of 128 pCO2 44 pH of 7.3 to and I cut down her FiO2 to 45%. Chest x-ray continues to show bibasilar opacities, improving overall, her electrolytes are normal except for potassium of 5.8 however her BUN is 107 creatinine is 5 and the patient is about to receive dialysis sometime in the next hour or so in the ICU. Her drips include norepinephrine at 0.04 she is also on insulin at 4 units per hour and she is receiving enteral feeding/Nepro. Patient remains off narcotics and sedatives and again no signs of neurological recovery noted please refer to full neurological evaluation. Reevaluated today on 02/27/21, remains in the ICU, intubated and mechanically ventilated, no changes whatsoever noted in the last few days. Patient remains on assist control rate of 28 tidal volume 400 FiO2 50% PEEP of 10 remains on daily hemodialysis ABG today showed a pO2 of 107 pCO2 47 pH of 7.31. Patient is not requiring any sedation, has been off sedation completely for the last 2 days to assess mental status, and her mental status is extremely poor, patient is unresponsive to any stimuli. Her WBC count is 17.2 hemoglobin 7.1. Electrolytes are abnormal with ablated potassium of 6.0 will correct with hemodialysis today. BUN is 88 creatinine is 3.87. No changes in medications over the last 24 hours. Patient is not requiring any sedation but she is requ iring norepinephrine at 0.05 mcg/kg/m, and she is also requiring insulin at 8.5 units per hour. Remains on GI and DVT prophylaxis, remains on Brilinta, remains on cefazolin. Objective - Vital Signs Vital signs: Vital Signs Temp 99.2 F 02/27/21 12:00 Pulse 114 H 02/27/21 12:28 Resp 28 H 02/27/21 12:00 BP 121/41 02/26/21 13:33 Pulse Ox 98 02/27/21 12:00 Intake & Output 02/26/21 02/27/21 02/27/21 18:59 06:59 18:59 Intake Total 5034.186 0009.035 566.031 Output Total 1800 60 8 Balance -491.064 3038.035 558.031 Weight 146.3 kg Intake: IV 230 273 145 PRESSURE BAGS Sodium 30 33 15 chloride 0.9 Sodium Chloride 0.9% 1, 200 240 60 000 ml @ 20 mls/hr IV . Q24H [facility] Rx#:[id number] ceFAZolin 2 gm In Sodium 70 Chloride 0.9% 50 ml @ 100 mls/hr IVPB Q12HR [facility] Rx #:[id number] Intake, IV Titration 29.533 121.035 41.031 Amount Insulin Regular 100 unit 29.533 66.358 30.017 In Sodium Chloride 0.9% 100 ml @ Per Protocol IV .Q0M [facility] Rx#:[id number] Norepinephrine 32 mg In 54.677 11.014 Sodium Chloride 0.9% 218 ml @ 0.05 MCG/KG/MIN 3. 202 mls/hr IV .Q24H [facility] Rx#:[id number] Tube Feeding 700 840 350 Hemodialysis 300 Other 90 30 30 Output: Urine 0 60 8 Hemodialysis 1800 Other: Voiding Method Indwelling Catheter Indwelling Catheter Indwelling Catheter ABP, PAP, CO, CI - Last Documented Arterial Blood Pressure 106/47 - Exam GENERAL EXAM: Revealed 64-year-old female obese, unresponsive to any stimuli, intubated and mechanically ventilated. HEAD: Normocephalic/atraumatic. EYES: Eyes seemed to deviate upwards. Pupils are sluggishly reactive. NOSE: Clear with pink turbinates. THROAT: No erythema or exudates. NECK: No masses, no JVD, no thyroid enlargement, no adenopathy. CHEST: No chest wall deformity. Symmetrical expansion. LUNGS: Crackles at the bases no rhonchi and no wheezes. CVS: Regular rate and rhythm, normal S1 and S2, no gallops, no murmurs, no rubs ABDOMEN: Obese soft nontender no megaly no rebound. EXTREMITIES: 2+ bipedal edema. SKIN: No rashes CENTRAL NERVOUS SYSTEM: Unresponsive, to any stimuli, comatose. - Labs CBC & Chem 7: 02/27/21 04:00 02/27/21 04:00 Labs: Abnormal Lab Results - Last 24 Hours (Table) 02/26/21 02/26/21 02/26/21 Range/Units 17:54 20:17 22:33 WBC (3.8-10.6) k/uL RBC (3.80-5.40) m/uL Hgb (11.4-16.0) gm/dL Hct (34.0-46.0) % MCHC (31.0-37.0) g/dL RDW (11.5-15.5) % ABG pH (7.35-7.45) ABG pCO2 (35-45) mmHg ABG Total CO2 (19-24) mmol/L ABG O2 Saturation (94-97) % Potassium (3.5-5.1) mmol/L Chloride (98-107) mmol/L BUN (7-17) mg/dL Creatinine (0.52-1.04) mg/dL Glucose (74-99) mg/dL POC Glucose (mg/dL) 195 H 165 H 156 H (75-99) mg/dL Calcium (8.4-10.2) mg/dL AST (14-36) U/L Alkaline Phosphatase (38-126) U/L C-Reactive Protein (<1.0) mg/dL Total Protein (6.3-8.2) g/dL Albumin (3.5-5.0) g/dL Procalcitonin (0.02-0.09) ng/mL 02/27/21 02/27/21 02/27/21 Range/Units 00:01 01:57 04:00 WBC (3.8-10.6) k/uL RBC (3.80-5.40) m/uL Hgb (11.4-16.0) gm/dL Hct (34.0-46.0) % MCHC (31.0-37.0) g/dL RDW (11.5-15.5) % ABG pH (7.35-7.45) ABG pCO2 (35-45) mmHg ABG Total CO2 (19-24) mmol/L ABG O2 Saturation (94-97) % Potassium (3.5-5.1) mmol/L Chloride (98-107) mmol/L BUN (7-17) mg/dL Creatinine (0.52-1.04) mg/dL Glucose (74-99) mg/dL POC Glucose (mg/dL) 173 H 139 H (75-99) mg/dL Calcium (8.4-10.2) mg/dL AST (14-36) U/L Alkaline Phosphatase (38-126) U/L C-Reactive Protein (<1.0) mg/dL Total Protein (6.3-8.2) g/dL Albumin (3.5-5.0) g/dL Procalcitonin 3.94 H (0.02-0.09) ng/mL 02/27/21 02/27/21 02/27/21 Range/Units 04:00 04:00 04:01 WBC 17.2 H (3.8-10.6) k/uL RBC 2.43 L (3.80-5.40) m/uL Hgb 7.1 L (11.4-16.0) gm/dL Hct 23.3 L (34.0-46.0) % MCHC 30.7 L (31.0-37.0) g/dL RDW 17.2 H (11.5-15.5) % ABG pH (7.35-7.45) ABG pCO2 (35-45) mmHg ABG Total CO2 (19-24) mmol/L ABG O2 Saturation (94-97) % Potassium 6.0 H (3.5-5.1) mmol/L Chloride 111 H (98-107) mmol/L BUN 88 H (7-17) mg/dL Creatinine 3.87 H (0.52-1.04) mg/dL Glucose 195 H (74-99) mg/dL POC Glucose (mg/dL) 209 H (75-99) mg/dL Calcium 7.3 L (8.4-10.2) mg/dL AST 295 H (14-36) U/L Alkaline Phosphatase 310 H (38-126) U/L C-Reactive Protein 18.0 H (<1.0) mg/dL Total Protein 5.2 L (6.3-8.2) g/dL Albumin 2.0 L (3.5-5.0) g/dL Procalcitonin (0.02-0.09) ng/mL 02/27/21 02/27/21 02/27/21 Range/Units 05:44 05:50 08:13 WBC (3.8-10.6) k/uL RBC (3.80-5.40) m/uL Hgb (11.4-16.0) gm/dL Hct (34.0-46.0) % MCHC (31.0-37.0) g/dL RDW (11.5-15.5) % ABG pH 7.31 L (7.35-7.45) ABG pCO2 47 H (35-45) mmHg ABG Total CO2 25 H (19-24) mmol/L ABG O2 Saturation 97.7 H (94-97) % Potassium (3.5-5.1) mmol/L Chloride (98-107) mmol/L BUN (7-17) mg/dL Creatinine (0.52-1.04) mg/dL Glucose (74-99) mg/dL POC Glucose (mg/dL) 202 H 201 H (75-99) mg/dL Calcium (8.4-10.2) mg/dL AST (14-36) U/L Alkaline Phosphatase (38-126) U/L C-Reactive Protein (<1.0) mg/dL Total Protein (6.3-8.2) g/dL Albumin (3.5-5.0) g/dL Procalcitonin (0.02-0.09) ng/mL 02/27/21 02/27/21 02/27/21 Range/Units 10:00 11:27 11:56 WBC (3.8-10.6) k/uL RBC (3.80-5.40) m/uL Hgb (11.4-16.0) gm/dL Hct (34.0-46.0) % MCHC (31.0-37.0) g/dL RDW (11.5-15.5) % ABG pH (7.35-7.45) ABG pCO2 (35-45) mmHg ABG Total CO2 (19-24) mmol/L ABG O2 Saturation (94-97) % Potassium (3.5-5.1) mmol/L Chloride (98-107) mmol/L BUN (7-17) mg/dL Creatinine (0.52-1.04) mg/dL Glucose (74-99) mg/dL POC Glucose (mg/dL) 124 H 121 H 144 H (75-99) mg/dL Calcium (8.4-10.2) mg/dL AST (14-36) U/L Alkaline Phosphatase (38-126) U/L C-Reactive Protein (<1.0) mg/dL Total Protein (6.3-8.2) g/dL Albumin (3.5-5.0) g/dL Procalcitonin (0.02-0.09) ng/mL Microbiology - Last 24 Hours (Table) 02/24/21 06:05 Blood Culture - Preliminary Blood No Growth after 72 hours 02/24/21 15:35 Blood Culture - Preliminary Blood No Growth after 48 hours Assessment and Plan Assessment: Impression: Acute hypoxic respiratory failure secondary to cardiac arrest with prolonged downtime of 34 minutes until return of spontaneous circulation. Intubated on 02/13 , extubated on 02/16 reintubated on 02/17 and he remains intubated and unresponsive. Possible septic shock secondary to MSSA bacteremia patient remains on antibiotics. Did receive vancomycin she is now on cefazolin had elevated pro calcitonin level. Required pressors for low blood pressure. Remains on norepinephrine Suspect acute metabolic encephalopathy and anoxic brain injury Acute anterior wall myocardial infarction status post LAD the stenting on 02/13 Type 2 diabetes Benign essential hypertension Hypothyroidism Morbid obesity History of coronary artery disease New-onset atrial fibrillation History of marijuana smoking Recommendation: Continue ventilatory support, assist control rate 28 tidal volume of 400 FiO2 down to 45% PEEP is 10 Keep patient off sedation completely Continue dialysis Continue antibiotics for possible cultures, placed on cefazolin. Infectious disease on the case. Patient remains critically ill Continue GI and DVT prophylaxis. Prognosis is guarded, obviously the patient sustained significant anoxic brain injury. Discussed her condition with her daughter Katerine over the phone today, explained to her the prognosis, and her daughter will discuss this with the rest of the family members including her brother and they would likely make a decision to proceed with comfort care measures soon. Critical care time is over 30 minutes. Time with Patient: Greater than 30
--- NOTE | 2021-02-27 12:38 | PN ---
PROGRESS NOTE Patient is seen for followup for acute kidney injury. She is currently seen on dialysis. Blood pressure remains on the lower side. She is significantly volume- overloaded. On examination today, blood pressure 108/46, heart rate 112 per minute. Patient is afebrile. No improvement in mentation without sedation. CODE STATUS has been discussed with the family and plan is for possible comfort care soon. Examination of lower extremities shows edema 3 to 4+ bilaterally. Abdomen is morbidly obese. Labs from today show sodium 142, potassium 6.0, BUN 88, creatinine 3.87, hemoglobin 7.1. ASSESSMENT: 1. Acute kidney injury, acute tubular necrosis, currently dialysis-dependent, receiving daily treatments. 2. Hyperkalemia associated with hypercatabolic state, acute kidney injury, hyperglycemia as well. Will continue on daily dialysis treatments for now. 3. Encephalopathy with no improvement in mentation without sedation for many days. 4. MSSA bacteremia, possibly pneumonia. Repeat blood cultures negative. 5. Severe volume overload. Patient will continue to need daily treatments for now. 6. Acute hypoxic respiratory failure, currently on the vent. PLAN: Continue with daily treatments. Agree with plans for comfort care measures. Overall prognosis is poor. MMODL / IJN: [id number] /
[2021-02-27 14:10] LABS: Glucose,Whole Blood 172 mg/dL (75-99)
[2021-02-27 16:04] LABS: Glucose,Whole Blood 183 mg/dL (75-99)
--- NOTE | 2021-02-27 17:14 | PN ---
PROGRESS NOTE DATE OF SERVICE: 02/27/2021 REASON FOR FOLLOWUP: MSSA bacteremia pneumonia. INTERVAL HISTORY: Patient did spike a fever last night of 101. She is running a low-grade fever of 99.1 this morning. The patient is hemodynamically stable. FiO2 is currently 50%. No purulent secretions through the ET, diarrhea or any other changes reported by the nursing staff. PHYSICAL EXAMINATION: Blood pressure 107/48 with a pulse of 115, temperature 99.2, T-max is 101. She is 98% on 50% FiO2. General description is a middle-aged female intubated on the vent. Respiratory system: Unlabored breathing, decreased intensity of breath sounds. No wheeze. Heart S1, S2. Regular rate and rhythm. Abdomen soft, no tenderness. LABS: Hemoglobin 7.1, white count 17.2 creatinine 3.87. DIAGNOSTIC IMPRESSION AND PLAN: Patient with MSSA bacteremia. Concern for possible pneumonia. Repeat blood culture has been negative. The patient is running a low-grade fever, slightly concerning. Repeat culture has been ordered. Closely follow. The antibiotic adjusted further if needed. For now, continue cefazolin and monitor clinical course closely. MMODL / IJN: [id number] /
[2021-02-27 18:10] LABS: Glucose,Whole Blood 168 mg/dL (75-99)
[2021-02-27] MEDS: INSULIN REGULAR 100 UNIT in SODIUM CHLORIDE 0.9% 100 ML IV SCH (18:10)
[2021-02-27 20:58] LABS: Glucose,Whole Blood 168 mg/dL (75-99)
[2021-02-27] MEDS: ATORVASTATIN 80 MG TAB PO SCH (21:18)
[2021-02-27] MEDS: SODIUM CHLORIDE 0.9% 1,000 ML IV SCH (21:18)
[2021-02-27 22:08] LABS: Glucose,Whole Blood 168 mg/dL (75-99)
[2021-02-28 00:02] LABS: Glucose,Whole Blood 100 mg/dL (75-99)
[2021-02-28] MEDS: IPRATROPIUM-ALBUTEROL 3 ML NEB INHALATION SCH ×6 (00:39→20:28)
[2021-02-28 01:06] LABS: Glucose,Whole Blood 167 mg/dL (75-99)
[2021-02-28 02:19] LABS: Glucose,Whole Blood 196 mg/dL (75-99)
[2021-02-28 03:19] LABS: Glucose,Whole Blood 217 mg/dL (75-99)
[2021-02-28 04:16] LABS: Glucose,Whole Blood 198 mg/dL (75-99)
[2021-02-28 05:14] LABS: Glucose,Whole Blood 136 mg/dL (75-99)
[2021-02-28] MEDS: LEVOTHYROXINE 100 MCG TAB PO SCH (06:04)
[2021-02-28 06:12] LABS: ABG Base Excess 0.2 mmol/L; ABG HCO3 26 mmol/L (21-25); ABG Oxygen Saturation 98.9 % (94-97); ABG PCO2 50 mmHg (35-45); ABG PH 7.33 (7.35-7.45); ABG PO2 125 mmHg (83-108); ABG TCO2 28 mmol/L (19-24); Allen Test Performed? Yes
[2021-02-28 06:16] LABS: Glucose,Whole Blood 187 mg/dL (75-99)
[2021-02-28 08:05] LABS: Glucose,Whole Blood 172 mg/dL (75-99)
[2021-02-28 08:31] LABS: Anisocytosis Slight; Basophils # (A) 0.1 k/uL (0-0.2); Basophils % (A) 0 %; Eosinophils # (A) 0.2 k/uL (0-0.7); Eosinophils % (A) 1 %; HCT 23.9 % (34.0-46.0); HGB 7.2 gm/dL (11.4-16.0); Hypochromasia Marked; Lymphocytes # (A) 1.1 k/uL (1.0-4.8); Lymphocytes % (A) 8 %; MCHC 30.4 g/dL (31.0-37.0); MCV 95.5 fL (80.0-100.0); Mean Platelet Volume 9.3; Monocytes # (A) 0.5 k/uL (0-1.0); Monocytes % (A) 3 %; Neutrophils # (A) 12.2 k/uL (1.3-7.7); Neutrophils % (A) 86 %; Platelet Count 295 k/uL (150-450); RDW 16.8 % (11.5-15.5); WBC 14.1 k/uL (3.8-10.6)
[2021-02-28 08:40] LABS: Albumin 2.1 g/dL (3.5-5.0); Calcium 7.5 mg/dL (8.4-10.2); Total Bilirubin 0.2 mg/dL (0.2-1.3); Total Protein 5.4 g/dL (6.3-8.2)
[2021-02-28] MEDS: TICAGRELOR 90 MG TAB PO SCH ×2 (09:08→20:32)
[2021-02-28] MEDS: ENOXAPARIN 30 MG/0.3 ML SYRINGE SQ SCH (09:08)
[2021-02-28] MEDS: CHLORHEXIDINE GLUCONATE 15 ML CUP MUCOUS MEM SCH ×2 (09:08→20:32)
[2021-02-28] MEDS: PANTOPRAZOLE 40 MG/10 ML VIAL IVP SCH (09:08)
[2021-02-28] MEDS: ASPIRIN 81 MG PO SCH (09:08)
[2021-02-28 09:47] LABS: Glucose,Whole Blood 155 mg/dL (75-99)
[2021-02-28] MEDS ORDERED: INSULIN DETEMIR (LEVEMIR) 100 UNIT/ML SYR SQ ONE (12:30)
--- NOTE | 2021-02-28 13:04 | P.PN ---
Subjective Progress Note Date: 02/28/21 Principal diagnosis: Acute hypoxic respiratory failure secondary to auto possible cardiac arrest with prolonged down time, 34 minutes before return of spontaneous circulation. On 02/22/2022 patient seen in follow-up in intensive care unit. She remains unresponsive, she has been off sedation since 02/20/2021. She has not received any Diprivan or narcotics. She remains intubated on assist control mode of ventilation with a rate of 28, tidal volume is 400, FiO2 of 50% and PEEP of 15. This morning's blood gas shows pO2 of 85, pCO2 50, and pH of 7.29 and this was done on the above-mentioned vent settings. She is on small amount of norepinephrine, 11 mics per minute, vasopressin has been discontinued, she is on 0.9 normal saline at a rate of 20 ML per hour, no other drips. She is in sinus mechanism slightly tachycardic with a rate of 105. She has not had recurrence of A. fib. She is on aspirin and Brilinta for a recent history of stenting of the LAD 2. No other anti-coagulants at this time. Her chest x-ray today shows diffuse bilateral infiltrates that are stable in appearance, and consolidative process in the left lower lobe with a small left pleural effusion, patient was started on hemodialysis and she had hemodialysis treatments for the last 2 days. On 02/21/2021 she had 1 L of fluid removed with hemodialysis, and just ultrafiltration on 02/20/2021 with no fluid removed. Urine output is minimal in the order of 5-10 mL per hour, patient is an significantly positive net fluid balance since admission, she has significant third spacing and edema involving her upper and lower extremities and trunk. She is at least 10 kg positive since admission. Low-grade fevers overnight. T-max is 99.6F. Patient remains on cefepime for antibiotic coverage, her blood cultures from 02/17/2021 showed MSSA, follow-up blood cultures sent on 02/20/2021 and 02/21/2021 are showing gram-positive cocci in groups. Final culture is pending. Today's labs show im provement in white count which is down to 15.4, hemoglobin is 8.0, platelet count is 147, sodium is 144, potassium is 3.4, chloride is 112, B1 is 56, and creatinine is 3.74, renal profile is relatively stable, her AST is 132, slightly increased, ALT is within normal limits at 25, alkaline phosphatase is 232, her last pro-calcitonin from yesterday 02/21/2021 was still significantly elevated at 16.9. Patient did receive a dose of vancomycin a few days back, her last Vanco troph was on 02/19/2021 and was at 19.0. Neurologically patient doesn't attempt to open eyes, does not follow any purposeful command, she does have a positive corneal reflex, positive cough, negative gag, negative Babinski. CT of the brain from yesterday on 02/21/2021 showed no acute intracranial hemorrhage or midline shift, mild diffuse age-related cerebral atrophy and chronic small vessel ischemic change without significant interval change. There was worsening paranasal sinus findings possibly related to intubation versus sinusitis. Neurology is following. Reevaluated today on 02/23/21, patient remains intubated and mechanically ventilated, she is on assist control rate of 28 tidal volume 400 FiO2 50% PEEP o f 15. Remains on norepinephrine at 0.03 mcg/kg/m on insulin for 5.5 units per hour she is off sedation completely, she is not requiring any narcotics or sedatives. She is not on any paralytics. ABG showed a pO2 of 124 pCO2 47 pH of 7.30. Patient is undergoing hemodialysis during my evaluation. Chest x-ray showed bilateral infiltrates greater on the left compared to the right, I believe the findings are mostly findings of CHF not true pneumonia although the patient may have aspirated during the code. WBC count is 14.7, hemoglobin is 7.4 electrolytes are normal BUN is 82 creatinine 4.74. Patient is being followed by many consultants including cardiology and nephrology and neurology, and at this point I believe her condition is extremely poor, and I doubt if we are going to notice any neurological recovery. May have to approach family somewhat along the line regarding CODE STATUS and comfort care measures. Reevaluated today on 02/24/21, patient remains in the ICU, intubated and m echanically ventilated. She is on assist control rate of 28 tidal volume 400 FiO2 on the percent and PEEP of 15. ABG is marginal with a pO2 of 95 pCO2 49 pH of 7.33. Chest x-ray is showing worsening left lung edema and or infiltrates. Patient is supposed to be dialyzed today, and I believe that would likely improve her pulmonary status. Her FiO2 had to be increased up to 100% last night. And today we will try to titrated down and maintain O2 saturation above 90%. Renal functioning remains poor with elevated BUN elevated creatinine of 7.06. WBC count is 15.1 hemoglobin is 8.0. Patient remains empirically on antibiotics. She is also on Lovenox/DVT prophylaxis. And she is also on Sheri linta, on Protonix for GI prophylaxis. His been on off norepinephrine intermittently Reevaluated today on 02/25/21, patient remains in the ICU intubated and mechanically ventilator. She is on assist control rate of 28 tidal volume 400 FiO2 60% PEEP is 15. Today after reviewing that ABG I cut down the PEEP to 12 and I cut down the FiO2 to 50%. Patient is requiring norepinephrine at 0.07 mcg/kg/m she is also on insulin at 5.5 units per hour she is on cefazolin, IV fluids at KVO, patient is off all narcotics and sedatives, and yet there is no evidence of any neurological response whatsoever except she may slightly open her eyes to deep painful stimuli. Otherwise no purposeful responses noted whatsoever. Chest x-ray showed adequate placement of the endotracheal tube. Bilateral airspace opacities noted mostly in the left lower lobe with atelectasis ABG today showed a pO2 of 171 pCO2 49 pH of 7.3 renal functioning is worsening. patient is not receiving hemodialysis today. WBC count is 16.5 hemoglobin is 7.8. Reevaluated today on 02/26/21, patient remains in the ICU, intubated and mechanically ventilated. Have not noticed any signs of neurological recovery over the last week, patient remains practically about the same. She is now on assist control rate of 28 tidal volume 400 FiO2 50% and PEEP is 10 ABG showed a pO2 of 128 pCO2 44 pH of 7.3 to and I cut down her FiO2 to 45%. Chest x-ray continues to show bibasilar opacities, improving overall, her electrolytes are normal except for potassium of 5.8 however her BUN is 107 creatinine is 5 and the patient is about to receive dialysis sometime in the next hour or so in the ICU. Her drips include norepinephrine at 0.04 she is also on insulin at 4 units per hour and she is receiving enteral feeding/Nepro. Patient remains off narcotics and sedatives and again no signs of neurological recovery noted please refer to full neurological evaluation. Reevaluated today on 02/27/21, remains in the ICU, intubated and mechanically ventilated, no changes whatsoever noted in the last few days. Patient remains on assist control rate of 28 tidal volume 400 FiO2 50% PEEP of 10 remains on daily hemodialysis ABG today showed a pO2 of 107 pCO2 47 pH of 7.31. Patient is not requiring any sedation, has been off sedation completely for the last 2 days to assess mental status, and her mental status is extremely poor, patient is unresponsive to any stimuli. Her WBC count is 17.2 hemoglobin 7.1. Electrolytes are abnormal with ablated potassium of 6.0 will correct with hemodialysis today. BUN is 88 creatinine is 3.87. No changes in medications over the last 24 hours. Patient is not requiring any sedation but she is requ iring norepinephrine at 0.05 mcg/kg/m, and she is also requiring insulin at 8.5 units per hour. Remains on GI and DVT prophylaxis, remains on Brilinta, remains on cefazolin. Reevaluated today on 02/28/21, remains in the ICU intubated and mechanically ventilated. Patient remains on assist control rate of 28 tidal volume 400 FiO2 50% PEEP of 10. ABG showed a pO2 of 125 pCO2 of 50 pH of 7.33. Patient remains off sedation completely, she is requiring insulin at 4.5 units per hour and she is also on norepinephrine 0.03 mcg/kg/m. Today the patient is opening her eyes, but she is not following any instructions. WBC count is 14.1 hemoglobin 7.2. Normal electrolytes were noted however her BUN is 80 creatinine is 3.91, patient may be undergoing dialysis sometime today. Not much of a changeover operator the last 24 hours overall. Her chest x-ray was done in the last couple of days mostly because from my reviews conversation with the daughter family may be inclined to consider comfort care measures on this patient. Objective - Vital Signs Vital signs: Vital Signs Temp 98.7 F 02/28/21 12:00 Pulse 110 H 02/28/21 12:44 Resp 25 H 02/28/21 12:00 BP 153/74 02/28/21 07:00 Pulse Ox 96 02/28/21 12:00 Intake & Output 02/27/21 02/28/21 02/28/21 18:59 06:59 18:59 Intake Total 3426.415 3235.527 726.598 Output Total 1029 0 50 Balance 182.186 1793.527 676.598 Weight 146.3 kg Intake: IV 306 276 168 PRESSURE BAGS Sodium 36 36 18 chloride 0.9 Sodium Chloride 0.9% 1, 200 240 100 000 ml @ 20 mls/hr IV . Q24H ADRIANA Rx#:[id number] ceFAZolin 2 gm In Sodium 70 50 Chloride 0.9% 50 ml @ 100 mls/hr IVPB Q12HR [facility] Rx #:[id number] Intake, IV Titration 69.773 108.527 48.598 Amount Insulin Regular 100 unit 58.759 41.083 41.65 In Sodium Chloride 0.9% 100 ml @ Per Protocol IV .Q0M ADRIANA Rx#:[id number] Norepinephrine 32 mg In 11.014 67.444 6.948 Sodium Chloride 0.9% 218 ml @ 0.05 MCG/KG/MIN 3. 202 mls/hr IV .Q24H ADRIANA Rx#:[id number] Tube Feeding 840 777 420 Other 90 150 90 Output: Urine 29 0 50 Hemodialysis 1000 Other: Voiding Method Indwelling Catheter Indwelling Catheter Indwelling Catheter ABP, PAP, CO, CI - Last Documented Arterial Blood Pressure 139/52 - Exam GENERAL EXAM: Revealed 64-year-old female obese, unresponsive to any stimuli, intubated and mechanically ventilated. Opens eyes only but no purposeful movement HEAD: Normocephalic/atraumatic. EYES: Eyes seemed to deviate upwards. Pupils are sluggishly reactive. NOSE: Clear with pink turbinates. THROAT: No erythema or exudates. NECK: No masses, no JVD, no thyroid enlargement, no adenopathy. CHEST: No chest wall deformity. Symmetrical expansion. LUNGS: Crackles at the bases no rhonchi and no wheezes. CVS: Regular rate and rhythm, normal S1 and S2, no gallops, no murmurs, no rubs ABDOMEN: Obese soft nontender no megaly no rebound. EXTREMITIES: 2+ bipedal edema. SKIN: No rashes CENTRAL NERVOUS SYSTEM: Unresponsive, opens eyes but does not respond to any other stimuli. - Labs CBC & Chem 7: 02/28/21 08:05 02/28/21 08:05 Labs: Abnormal Lab Results - Last 24 Hours (Table) 02/27/21 02/27/21 02/27/21 Range/Units 14:08 16:03 18:08 WBC (3.8-10.6) k/uL RBC (3.80-5.40) m/uL Hgb (11.4-16.0) gm/dL Hct (34.0-46.0) % MCHC (31.0-37.0) g/dL RDW (11.5-15.5) % Neutrophils # (1.3-7.7) k/uL ABG pH (7.35-7.45) ABG pCO2 (35-45) mmHg ABG pO2 (83-108) mmHg ABG HCO3 (21-25) mmol/L ABG Total CO2 (19-24) mmol/L ABG O2 Saturation (94-97) % Chloride (98-107) mmol/L BUN (7-17) mg/dL Creatinine (0.52-1.04) mg/dL Glucose (74-99) mg/dL POC Glucose (mg/dL) 172 H 183 H 168 H (75-99) mg/dL Calcium (8.4-10.2) mg/dL AST (14-36) U/L Alkaline Phosphatase (38-126) U/L Total Protein (6.3-8.2) g/dL Albumin (3.5-5.0) g/dL 02/27/21 02/27/21 02/28/21 Range/Units 20:57 22:06 00:00 WBC (3.8-10.6) k/uL RBC (3.80-5.40) m/uL Hgb (11.4-16.0) gm/dL Hct (34.0-46.0) % MCHC (31.0-37.0) g/dL RDW (11.5-15.5) % Neutrophils # (1.3-7.7) k/uL ABG pH (7.35-7.45) ABG pCO2 (35-45) mmHg ABG pO2 (83-108) mmHg ABG HCO3 (21-25) mmol/L ABG Total CO2 (19-24) mmol/L ABG O2 Saturation (94-97) % Chloride (98-107) mmol/L BUN (7-17) mg/dL Creatinine (0.52-1.04) mg/dL Glucose (74-99) mg/dL POC Glucose (mg/dL) 168 H 168 H 100 H (75-99) mg/dL Calcium (8.4-10.2) mg/dL AST (14-36) U/L Alkaline Phosphatase (38-126) U/L Total Protein (6.3-8.2) g/dL Albumin (3.5-5.0) g/dL 02/28/21 02/28/21 02/28/21 Range/Units 01:05 02:18 03:17 WBC (3.8-10.6) k/uL RBC (3.80-5.40) m/uL Hgb (11.4-16.0) gm/dL Hct (34.0-46.0) % MCHC (31.0-37.0) g/dL RDW (11.5-15.5) % Neutrophils # (1.3-7.7) k/uL ABG pH (7.35-7.45) ABG pCO2 (35-45) mmHg ABG pO2 (83-108) mmHg ABG HCO3 (21-25) mmol/L ABG Total CO2 (19-24) mmol/L ABG O2 Saturation (94-97) % Chloride (98-107) mmol/L BUN (7-17) mg/dL Creatinine (0.52-1.04) mg/dL Glucose (74-99) mg/dL POC Glucose (mg/dL) 167 H 196 H 217 H (75-99) mg/dL Calcium (8.4-10.2) mg/dL AST (14-36) U/L Alkaline Phosphatase (38-126) U/L Total Protein (6.3-8.2) g/dL Albumin (3.5-5.0) g/dL 02/28/21 02/28/21 02/28/21 Range/Units 04:14 05:13 06:12 WBC (3.8-10.6) k/uL RBC (3.80-5.40) m/uL Hgb (11.4-16.0) gm/dL Hct (34.0-46.0) % MCHC (31.0-37.0) g/dL RDW (11.5-15.5) % Neutrophils # (1.3-7.7) k/uL ABG pH 7.33 L (7.35-7.45) ABG pCO2 50 H (35-45) mmHg ABG pO2 125 H (83-108) mmHg ABG HCO3 26 H (21-25) mmol/L ABG Total CO2 28 H (19-24) mmol/L ABG O2 Saturation 98.9 H (94-97) % Chloride (98-107) mmol/L BUN (7-17) mg/dL Creatinine (0.52-1.04) mg/dL Glucose (74-99) mg/dL POC Glucose (mg/dL) 198 H 136 H (75-99) mg/dL Calcium (8.4-10.2) mg/dL AST (14-36) U/L Alkaline Phosphatase (38-126) U/L Total Protein (6.3-8.2) g/dL Albumin (3.5-5.0) g/dL 02/28/21 02/28/21 02/28/21 Range/Units 06:14 08:04 08:05 WBC 14.1 H (3.8-10.6) k/uL RBC 2.50 L (3.80-5.40) m/uL Hgb 7.2 L (11.4-16.0) gm/dL Hct 23.9 L (34.0-46.0) % MCHC 30.4 L (31.0-37.0) g/dL RDW 16.8 H (11.5-15.5) % Neutrophils # 12.2 H (1.3-7.7) k/uL ABG pH (7.35-7.45) ABG pCO2 (35-45) mmHg ABG pO2 (83-108) mmHg ABG HCO3 (21-25) mmol/L ABG Total CO2 (19-24) mmol/L ABG O2 Saturation (94-97) % Chloride (98-107) mmol/L BUN (7-17) mg/dL Creatinine (0.52-1.04) mg/dL Glucose (74-99) mg/dL POC Glucose (mg/dL) 187 H 172 H (75-99) mg/dL Calcium (8.4-10.2) mg/dL AST (14-36) U/L Alkaline Phosphatase (38-126) U/L Total Protein (6.3-8.2) g/dL Albumin (3.5-5.0) g/dL 02/28/21 02/28/21 Range/Units 08:05 09:45 WBC (3.8-10.6) k/uL RBC (3.80-5.40) m/uL Hgb (11.4-16.0) gm/dL Hct (34.0-46.0) % MCHC (31.0-37.0) g/dL RDW (11.5-15.5) % Neutrophils # (1.3-7.7) k/uL ABG pH (7.35-7.45) ABG pCO2 (35-45) mmHg ABG pO2 (83-108) mmHg ABG HCO3 (21-25) mmol/L ABG Total CO2 (19-24) mmol/L ABG O2 Saturation (94-97) % Chloride 110 H (98-107) mmol/L BUN 80 H (7-17) mg/dL Creatinine 3.91 H (0.52-1.04) mg/dL Glucose 161 H (74-99) mg/dL POC Glucose (mg/dL) 155 H (75-99) mg/dL Calcium 7.5 L (8.4-10.2) mg/dL AST 265 H (14-36) U/L Alkaline Phosphatase 320 H (38-126) U/L Total Protein 5.4 L (6.3-8.2) g/dL Albumin 2.1 L (3.5-5.0) g/dL Microbiology - Last 24 Hours (Table) 02/24/21 06:05 Blood Culture - Preliminary Blood No Growth after 96 hours 02/24/21 15:35 Blood Culture - Preliminary Blood No Growth after 72 hours Assessment and Plan Assessment: Impression: Acute hypoxic respiratory failure secondary to cardiac arrest with prolonged downtime of 34 minutes until return of spontaneous circulation. Intubated on 02/13 , extubated on 02/16 reintubated on 02/17 and he remains intubated and unresponsive. Possible septic shock secondary to MSSA bacteremia patient remains on antibiotic s. Did receive vancomycin she is now on cefazolin had elevated pro calcitonin level. Required pressors for low blood pressure. Remains on norepinephrine Suspect acute metabolic encephalopathy and anoxic brain injury Acute anterior wall myocardial infarction status post LAD the stenting on 02/13 Type 2 diabetes Benign essential hypertension Hypothyroidism Morbid obesity History of coronary artery disease New-onset atrial fibrillation History of marijuana smoking Recommendation: Continue ventilatory support, assist control rate 28 tidal volume of 400 FiO2 50% PEEP is 10 Keep patient off sedation completely Continue dialysis Continue antibiotics for possible cultures, placed on cefazolin. Infectious disease on the case. Patient remains critically ill Continue GI and DVT prophylaxis. Prognosis is guarded, obviously the patient sustained significant anoxic brain injury. Awaiting to get feedback from the daughter about possible comfort care measures family has been updated about her condition yesterday. Critical care time is over 30 minutes. Time with Patient: Greater than 30
[2021-02-28 13:26] LABS: Glucose,Whole Blood 164 mg/dL (75-99)
--- NOTE | 2021-02-28 15:32 | PN ---
PROGRESS NOTE Patient is seen for followup for acute kidney injury. Patient remains on the vent. She was dialyzed yesterday. We had one liter of ultrafiltration. Her potassium is not elevated today. It is at 5 and creatinine is down to 3.9. We will hold dialysis today and plan for a treatment tomorrow. On examination today, patient remains on the vent. No improvement in mentation. Blood pressure this morning was 127/48, heart rate of 117 per minute. She is afebrile. EXAMINATION OF THE HEART: S1 and S2. EXAMINATION OF LUNGS: Bilateral breath sounds are heard. Abdomen is soft. Examination of lower extremities shows significant edema bilaterally, upper and lower extremities. Labs show hemoglobin 7.2, sodium 143, potassium 5.0, chloride 110, BUN 80, serum creatinine 3.9. ASSESSMENT: 1. Acute kidney injury, acute tubular necrosis, hemodialysis-dependent. Patient has been receiving daily treatments. Today her potassium is not elevated and creatinine is at 3.9. We will plan to dialyze her tomorrow and hold treatment today. 2. Volume overload. Continue to increase ultrafiltration as tolerated with hemodialysis. 3. Acute hypoxic respiratory failure, currently on the vent. 4. MSSA bacteremia, possibly secondary to pneumonia. Repeat blood cultures have been negative. 5. Encephalopathy with no improvement in mentation. 6. Hyperkalemia, currently improved. Will plan for dialysis tomorrow. Potassium 5.0 today. Etiology is acute kidney injury and hypercatabolic state. PLAN: Hemodialysis in a.m., as family has not decided about comfort care measures yet. MMODL / IJN: [id number] /
[2021-02-28] MEDS: NOREPINEPHRINE 32 MG in SODIUM CHLORIDE 0.9% 218 ML IV SCH (16:24)
[2021-02-28 17:32] LABS: Glucose,Whole Blood 191 mg/dL (75-99)
[2021-02-28 17:43] LABS: Glucose,Whole Blood 190 mg/dL (75-99)
[2021-02-28] MEDS: INSULIN ASPART (NovoLOG) 100 UNIT/ML VIAL SQ SCH ×2 (17:46→23:49)
[2021-02-28] MEDS: SODIUM CHLORIDE 0.9% 1,000 ML IV SCH ×2 (17:48→20:32)
--- NOTE | 2021-02-28 18:06 | PN ---
PROGRESS NOTE DATE OF SERVICE: 02/28/2021 This 65-year-old woman who was admitted with MSSA bacteremia and likely pneumonia is being closely monitored at this time. The patient is on broad-spectrum IV antibiotics. The patient also had cardiac arrest and ongoing CPR through EMS prior to admission. Anoxic hypoxic encephalopathy was also being considered. Patient mechanical Dr. Gerber is also following the patient closely. The cultures are showing Staph aureus MSSA. The most recent cultures 02/21 was positive and the rest of the cultures are negative from February 24. White count is slightly elevated. Discussion with the family regarding the continuation of the life support system is also underway. The possibility of septic shock at the time was also considered as a possibility. Past medical history reviewed. REVIEW OF SYSTEMS: Could not be taken. CURRENT MEDICATIONS: Reviewed and include: Tylenol, DuoNeb, aspirin, Lipitor, Atropine, cefazolin. Doses and other medications reviewed. PHYSICAL EXAMINATION: Patient is mechanically sedated. Pulse is 113, blood pressure 150/89, respiration 26, temperature 98.7, pulse ox 96% on mechanical ventilation. The vent settings are noted. 400 tidal volume, 45% FiO2 and 8 of PEEP. HEENT: Conjunctivae normal. Neck: No JVD. Cardiovascular: S1, S2 muffled. Respiration: Breath sounds diminished in the bases. Scattered rhonchi. Abdomen: Soft. Nervous system: Mechanically sedated. LABS: WBC 14.3, hemoglobin 7.2. ABGs noted. Creatinine 3.91. ASSESSMENT: 1. Acute MSSA sepsis with septic shock and acute hypoxic respiratory failure secondary to sepsis, on mechanical ventilation. 2. Change in mental status and acute toxic encephalopathy from hypoxic encephalopathy. 3. Prolonged CPR prior to admission. 4. Acute anterior wall myocardial infarction status post LAD stenting on February 13. 5. Acute metabolic acidosis. 6. Acute kidney injury with acute renal failure. 7. Possible pulmonary edema. 8. Leukocytosis. 9. Rib fractures secondary to CPR. 10.Coagulopathy, INR 2.7, possibly secondary to sepsis, present on admission. 11.Hypertension. 12.Hypothyroidism. 13.Diabetes mellitus, type 2. 14.Gastroesophageal reflux disease. 15.History of coronary artery disease. 16.Morbid obesity BMI of 45.8. 17.FULL CODE. RECOMMENDATIONS AND DISCUSSION: This 65-year-old woman who presented with multiple complex medical issues, we will monitor the patient closely. Continue the current medications. Continue with mechanical ventilation. Otherwise prognosis guarded because of multiple complex medical issues. See orders for details. Further recommendations to follow. MMODL / IJN: [id number] / [email or web address]
[2021-02-28] MEDS: ATORVASTATIN 80 MG TAB PO SCH (20:32)
[2021-02-28] MEDS ORDERED: INSULIN DETEMIR (LEVEMIR) 100 UNIT/ML SYR SQ SCH (21:00)
--- NOTE | 2021-02-28 22:11 | P.PN ---
Subjective Progress Note Date: 02/27/21 02/27/2021: Patient continues to be on ventilator. Patient apparently does not appear to be on any sedation. Patient does not follow commands. Severely encephalopathic. No seizure-like activity witnessed by the nurse. 02/19/2021: This is a telemedicine followup performed on this patient today on 02/19/2021. Patient continues to be on propofol 30 g, and also on Nimbex 0.4 g per program per minute. Patient is on weaning down schedule of Nimbex. She has not had any sedation holidays since she was reintubated on 02/17/2021. No seizure-like activity noted. No new concerns. 02/17/2021: Patient apparently developed respiratory distress overnight. Patient's heart rate was going up to 150 and respiration 50/m. BiPAP did not work. Patient was ultimately re-intubated earlier this morning at 6 AM and now on mechanical ventilation. Also on propofol 60 g per 2 g/m. Also on Nimbex 2 mcg/kg/m. Exam limited due to above. 02/16/2021: Patient was seen for a follow-up. Patient was extubated half an hour ago. Patient is off sedation. Appears somewhat sick. But answers and responds appropriately. Please refer to examination below. Objective - Vital Signs Vital signs: Vital Signs Temp 99.2 F 02/27/21 12:00 Pulse 115 H 02/27/21 12:00 Resp 28 H 02/27/21 12:00 BP 121/41 02/26/21 13:33 Pulse Ox 98 02/27/21 12:00 Intake & Output 02/26/21 02/27/21 02/27/21 18:59 06:59 18:59 Intake Total 8875.122 3153.035 566.031 Output Total 1800 60 8 Balance -681.019 2241.035 558.031 Weight 146.3 kg Intake: IV 230 273 145 PRESSURE BAGS Sodium 30 33 15 chloride 0.9 Sodium Chloride 0.9% 1, 200 240 60 000 ml @ 20 mls/hr IV . Q24H [facility] Rx#:[id number] ceFAZolin 2 gm In Sodium 70 Chloride 0.9% 50 ml @ 100 mls/hr IVPB Q12HR [facility] Rx #:[id number] Intake, IV Titration 29.533 121.035 41.031 Amount Insulin Regular 100 unit 29.533 66.358 30.017 In Sodium Chloride 0.9% 100 ml @ Per Protocol IV .Q0M [facility] Rx#:[id number] Norepinephrine 32 mg In 54.677 11.014 Sodium Chloride 0.9% 218 ml @ 0.05 MCG/KG/MIN 3. 202 mls/hr IV .Q24H [facility] Rx#:[id number] Tube Feeding 700 840 350 Hemodialysis 300 Other 90 30 30 Output: Urine 0 60 8 Hemodialysis 1800 Other: Voiding Method Indwelling Catheter Indwelling Catheter Indwelling Catheter ABP, PAP, CO, CI - Last Documented Arterial Blood Pressure 106/47 - Exam 02/27/2021: Patient is intubated, not responding to calling her name. Patient does produce facial grimacing with painful stimuli in the upper limbs but not in the lower limbs. Her pupils are equal, 3-4 mm, round and reacting. Oculocephalics are absent. Corneals are present bilaterally. Patient is breathing over the ventilator. Tone is equal bilaterally. Patient has moderate peripheral edema bilaterally. No obvious seizure activity noted. Tone and bulk of muscles normal. 02/19/2021: Patient intubated, sedated on propofol 30 g per program per minute. Also on Nimbex. Exam is limited. Pupils are equal 3-4 mm, round and reacting bilaterally. Rest of the examination not performed because of on sedation and Nimbex. 02/17/2021: Patient intubated, sedated on high dose propofol 60 g and Nimbex. Exam limited. 02/16/2021: Patient is extubated, appears somewhat restless, turns her head back and forth, but does respond appropriately. Patient is quite alert and awake, slightly encephalopathic. Patient makes eye contact. Patient able to name eyeglasses very well. Her pupils are round and reacting. Extraocular muscles are intact. Face appears symmetric. She appears generalized weak. However she was able to squeeze the hand to 3+ bilaterally, able to lift her arms an tigravity, also able to wiggle her feet bilaterally. Patient nodded "no" for headache. No obvious seizure activity. - Labs CBC & Chem 7: 02/28/21 08:05 02/28/21 08:05 Labs: Abnormal Lab Results - Last 24 Hours (Table) 02/26/21 02/26/21 02/26/21 Range/Units 17:54 20:17 22:33 WBC (3.8-10.6) k/uL RBC (3.80-5.40) m/uL Hgb (11.4-16.0) gm/dL Hct (34.0-46.0) % MCHC (31.0-37.0) g/dL RDW (11.5-15.5) % ABG pH (7.35-7.45) ABG pCO2 (35-45) mmHg ABG Total CO2 (19-24) mmol/L ABG O2 Saturation (94-97) % Potassium (3.5-5.1) mmol/L Chloride (98-107) mmol/L BUN (7-17) mg/dL Creatinine (0.52-1.04) mg/dL Glucose (74-99) mg/dL POC Glucose (mg/dL) 195 H 165 H 156 H (75-99) mg/dL Calcium (8.4-10.2) mg/dL AST (14-36) U/L Alkaline Phosphatase (38-126) U/L C-Reactive Protein (<1.0) mg/dL Total Protein (6.3-8.2) g/dL Albumin (3.5-5.0) g/dL Procalcitonin (0.02-0.09) ng/mL 02/27/21 02/27/21 02/27/21 Range/Units 00:01 01:57 04:00 WBC (3.8-10.6) k/uL RBC (3.80-5.40) m/uL Hgb (11.4-16.0) gm/dL Hct (34.0-46.0) % MCHC (31.0-37.0) g/dL RDW (11.5-15.5) % ABG pH (7.35-7.45) ABG pCO2 (35-45) mmHg ABG Total CO2 (19-24) mmol/L ABG O2 Saturation (94-97) % Potassium (3.5-5.1) mmol/L Chloride (98-107) mmol/L BUN (7-17) mg/dL Creatinine (0.52-1.04) mg/dL Glucose (74-99) mg/dL POC Glucose (mg/dL) 173 H 139 H (75-99) mg/dL Calcium (8.4-10.2) mg/dL AST (14-36) U/L Alkaline Phosphatase (38-126) U/L C-Reactive Protein (<1.0) mg/dL Total Protein (6.3-8.2) g/dL Albumin (3.5-5.0) g/dL Procalcitonin 3.94 H (0.02-0.09) ng/mL 02/27/21 02/27/21 02/27/21 Range/Units 04:00 04:00 04:01 WBC 17.2 H (3.8-10.6) k/uL RBC 2.43 L (3.80-5.40) m/uL Hgb 7.1 L (11.4-16.0) gm/dL Hct 23.3 L (34.0-46.0) % MCHC 30.7 L (31.0-37.0) g/dL RDW 17.2 H (11.5-15.5) % ABG pH (7.35-7.45) ABG pCO2 (35-45) mmHg ABG Total CO2 (19-24) mmol/L ABG O2 Saturation (94-97) % Potassium 6.0 H (3.5-5.1) mmol/L Chloride 111 H (98-107) mmol/L BUN 88 H (7-17) mg/dL Creatinine 3.87 H (0.52-1.04) mg/dL Glucose 195 H (74-99) mg/dL POC Glucose (mg/dL) 209 H (75-99) mg/dL Calcium 7.3 L (8.4-10.2) mg/dL AST 295 H (14-36) U/L Alkaline Phosphatase 310 H (38-126) U/L C-Reactive Protein 18.0 H (<1.0) mg/dL Total Protein 5.2 L (6.3-8.2) g/dL Albumin 2.0 L (3.5-5.0) g/dL Procalcitonin (0.02-0.09) ng/mL 02/27/21 02/27/21 02/27/21 Range/Units 05:44 05:50 08:13 WBC (3.8-10.6) k/uL RBC (3.80-5.40) m/uL Hgb (11.4-16.0) gm/dL Hct (34.0-46.0) % MCHC (31.0-37.0) g/dL RDW (11.5-15.5) % ABG pH 7.31 L (7.35-7.45) ABG pCO2 47 H (35-45) mmHg ABG Total CO2 25 H (19-24) mmol/L ABG O2 Saturation 97.7 H (94-97) % Potassium (3.5-5.1) mmol/L Chloride (98-107) mmol/L BUN (7-17) mg/dL Creatinine (0.52-1.04) mg/dL Glucose (74-99) mg/dL POC Glucose (mg/dL) 202 H 201 H (75-99) mg/dL Calcium (8.4-10.2) mg/dL AST (14-36) U/L Alkaline Phosphatase (38-126) U/L C-Reactive Protein (<1.0) mg/dL Total Protein (6.3-8.2) g/dL Albumin (3.5-5.0) g/dL Procalcitonin (0.02-0.09) ng/mL 02/27/21 02/27/21 02/27/21 Range/Units 10:00 11:27 11:56 WBC (3.8-10.6) k/uL RBC (3.80-5.40) m/uL Hgb (11.4-16.0) gm/dL Hct (34.0-46.0) % MCHC (31.0-37.0) g/dL RDW (11.5-15.5) % ABG pH (7.35-7.45) ABG pCO2 (35-45) mmHg ABG Total CO2 (19-24) mmol/L ABG O2 Saturation (94-97) % Potassium (3.5-5.1) mmol/L Chloride (98-107) mmol/L BUN (7-17) mg/dL Creatinine (0.52-1.04) mg/dL Glucose (74-99) mg/dL POC Glucose (mg/dL) 124 H 121 H 144 H (75-99) mg/dL Calcium (8.4-10.2) mg/dL AST (14-36) U/L Alkaline Phosphatase (38-126) U/L C-Reactive Protein (<1.0) mg/dL Total Protein (6.3-8.2) g/dL Albumin (3.5-5.0) g/dL Procalcitonin (0.02-0.09) ng/mL Microbiology - Last 24 Hours (Table) 02/24/21 06:05 Blood Culture - Preliminary Blood No Growth after 72 hours 02/24/21 15:35 Blood Culture - Preliminary Blood No Growth after 48 hours Assessment and Plan Assessment: * Status post cardiac arrest, with the downtime of 32 minutes. Patient was extubated 02/16/2021 doing quite well, following commands appropriately, and then re-intubated on 02/17/2021 due to respiratory distress. Patient has been intubated since then. * Toxic metabolic encephalopathy, severe degree with possible some component of anoxic encephalopathy. * Acute STEMI, * New onset atrial fibrillation, converted to normal sinus rhythm. * Diabetes * Hypertension * CAD Plan: * Patient encephalopathy has not improved. * Computed tomography scan of head revealed degenerative and nonspecific white matter changes are nonspecific. * EEG was abnormal due to background slowing of mild to moderate degree. This is suggestive of generalized cerebral dysfunction as can be seen with toxic metabolic encephalopathy or from diffuse structural brain abnormality. No epileptiform activity was seen. * Medical management as per IM and critical care * Cardiology also on board. * Patient started on aspirin 81 mg and Brilinta, also on high dose statins Lipitor 80 mg. * DVT prophylaxis with SCDs. * Patient's family to make decision regarding placement of tracheostomy and PEG tube versus comfort care. * Discussed with nursing detail.
--- NOTE | 2021-02-28 22:19 | P.PN ---
Subjective Progress Note Date: 02/28/21 02/28/2021: Patient is off sedation. Family has not made decision yet regarding further care. Per nurse report, she does open eyes but no eye contact. No seizure-like activity. Does not follow commands. 02/27/2021: Patient continues to be on ventilator. Patient apparently does not appear to be on any sedation. Patient does not follow commands. Severely encephalopathic. No seizure-like activity witnessed by the nurse. 02/19/2021: This is a telemedicine followup performed on this patient today on 02/19/2021. Patient continues to be on propofol 30 g, and also on Nimbex 0.4 g per program per minute. Patient is on weaning down schedule of Nimbex. She has not had any sedation holidays since she was reintubated on 02/17/2021. No seizure-like activity noted. No new concerns. 02/17/2021: Patient apparently developed respiratory distress overnight. Patient's heart rate was going up to 150 and respiration 50/m. BiPAP did not work. Patient was ultimately re-intubated earlier this morning at 6 AM and now on mechanical ventilation. Also on propofol 60 g per 2 g/m. Also on Nimbex 2 mcg/kg/m. Exam limited due to above. 02/16/2021: Patient was seen for a follow-up. Patient was extubated half an hour ago. Patient is off sedation. Appears somewhat sick. But answers and responds appropriately. Please refer to examination below. Objective - Vital Signs Vital signs: Vital Signs Temp 99.2 F 02/28/21 20:00 Pulse 115 H 02/28/21 21:00 Resp 23 02/28/21 21:00 BP 153/74 02/28/21 21:00 Pulse Ox 98 02/28/21 21:00 Intake & Output 02/28/21 02/28/21 03/01/21 06:59 18:59 06:59 Intake Total 8105.256 9447.551 309 Output Total 0 80 5 Balance 7749.515 8917.551 304 Intake: IV 276 306 69 PRESSURE BAGS Sodium 36 36 9 chloride 0.9 Sodium Chloride 0.9% 1, 240 220 60 000 ml @ 20 mls/hr IV . Q24H [facility] Rx#:[id number] ceFAZolin 2 gm In Sodium 50 Chloride 0.9% 50 ml @ 100 mls/hr IVPB Q12HR [facility] Rx #:[id number] Intake, IV Titration 108.527 75.551 Amount Insulin Regular 100 unit 41.083 59.125 In Sodium Chloride 0.9% 100 ml @ Per Protocol IV .Q0M [facility] Rx#:[id number] Norepinephrine 32 mg In 67.444 16.426 Sodium Chloride 0.9% 218 ml @ 0.05 MCG/KG/MIN 3. 202 mls/hr IV .Q24H [facility] Rx#:[id number] Tube Feeding 777 840 210 Other 150 120 30 Output: Urine 0 80 5 Other: Voiding Method Indwelling Catheter Indwelling Catheter Indwelling Catheter ABP, PAP, CO, CI - Last Documented Arterial Blood Pressure 133/51 - Exam 02/28/2021: Patient is severely encephalopathic. She opens her eyes to calling her name slightly, but sometimes seems to track to the side towards the caller, but other times appears involuntary and reflexive. Patient has peripheral edema. No obvious seizure activity noted. Tone is equal bilaterally. Patient has positive pupillary reflex, positive corneals. She does breathe over the ventilator. 02/27/2021: Patient is intubated, not responding to calling her name. Patient does produce facial grimacing with painful stimuli in the upper limbs but not in the lower limbs. Her pupils are equal, 3-4 mm, round and reacting. Oculocephalics are absent. Corneals are present bilaterally. Patient is breathing over the ventilator. Tone is equal bilaterally. Patient has moderate peripheral edema bilaterally. No obvious seizure activity noted. Tone and bulk of muscles normal. 02/19/2021: Patient intubated, sedated on propofol 30 g per program per minute. Also on Nimbex. Exam is limited. Pupils are equal 3-4 mm, round and reacting bilaterally. Rest of the examination not performed because of on sedation and Nimbex. 02/17/2021: Patient intubated, sedated on high dose propofol 60 g and Nimbex. Exam limited. 02/16/2021: Patient is extubated, appears somewhat restless, turns her head back and forth, but does respond appropriately. Patient is quite alert and awake, slightly encephalopathic. Patient makes eye contact. Patient able to name eyeglasses very well. Her pupils are round and reacting. Extraocular muscles are intact. Face appears symmetric. She appears generalized weak. However she was able to squeeze the hand to 3+ bilaterally, able to lift her arms antigravity, also able to wiggle her feet bilaterally. Patient nodded "no" for headache. No obvious seizure activity. - Labs CBC & Chem 7: 02/28/21 08:05 02/28/21 08:05 Labs: Abnormal Lab Results - Last 24 Hours (Table) 02/28/21 02/28/21 02/28/21 Range/Units 00:00 01:05 02:18 WBC (3.8-10.6) k/uL RBC (3.80-5.40) m/uL Hgb (11.4-16.0) gm/dL Hct (34.0-46.0) % MCHC (31.0-37.0) g/dL RDW (11.5-15.5) % Neutrophils # (1.3-7.7) k/uL ABG pH (7.35-7.45) ABG pCO2 (35-45) mmHg ABG pO2 (83-108) mmHg ABG HCO3 (21-25) mmol/L ABG Total CO2 (19-24) mmol/L ABG O2 Saturation (94-97) % Chloride (98-107) mmol/L BUN (7-17) mg/dL Creatinine (0.52-1.04) mg/dL Glucose (74-99) mg/dL POC Glucose (mg/dL) 100 H 167 H 196 H (75-99) mg/dL Calcium (8.4-10.2) mg/dL AST (14-36) U/L Alkaline Phosphatase (38-126) U/L Total Protein (6.3-8.2) g/dL Albumin (3.5-5.0) g/dL 02/28/21 02/28/21 02/28/21 Range/Units 03:17 04:14 05:13 WBC (3.8-10.6) k/uL RBC (3.80-5.40) m/uL Hgb (11.4-16.0) gm/dL Hct (34.0-46.0) % MCHC (31.0-37.0) g/dL RDW (11.5-15.5) % Neutrophils # (1.3-7.7) k/uL ABG pH (7.35-7.45) ABG pCO2 (35-45) mmHg ABG pO2 (83-108) mmHg ABG HCO3 (21-25) mmol/L ABG Total CO2 (19-24) mmol/L ABG O2 Saturation (94-97) % Chloride (98-107) mmol/L BUN (7-17) mg/dL Creatinine (0.52-1.04) mg/dL Glucose (74-99) mg/dL POC Glucose (mg/dL) 217 H 198 H 136 H (75-99) mg/dL Calcium (8.4-10.2) mg/dL AST (14-36) U/L Alkaline Phosphatase (38-126) U/L Total Protein (6.3-8.2) g/dL Albumin (3.5-5.0) g/dL 02/28/21 02/28/21 02/28/21 Range/Units 06:12 06:14 08:04 WBC (3.8-10.6) k/uL RBC (3.80-5.40) m/uL Hgb (11.4-16.0) gm/dL Hct (34.0-46.0) % MCHC (31.0-37.0) g/dL RDW (11.5-15.5) % Neutrophils # (1.3-7.7) k/uL ABG pH 7.33 L (7.35-7.45) ABG pCO2 50 H (35-45) mmHg ABG pO2 125 H (83-108) mmHg ABG HCO3 26 H (21-25) mmol/L ABG Total CO2 28 H (19-24) mmol/L ABG O2 Saturation 98.9 H (94-97) % Chloride (98-107) mmol/L BUN (7-17) mg/dL Creatinine (0.52-1.04) mg/dL Glucose (74-99) mg/dL POC Glucose (mg/dL) 187 H 172 H (75-99) mg/dL Calcium (8.4-10.2) mg/dL AST (14-36) U/L Alkaline Phosphatase (38-126) U/L Total Protein (6.3-8.2) g/dL Albumin (3.5-5.0) g/dL 02/28/21 02/28/21 02/28/21 Range/Units 08:05 08:05 09:45 WBC 14.1 H (3.8-10.6) k/uL RBC 2.50 L (3.80-5.40) m/uL Hgb 7.2 L (11.4-16.0) gm/dL Hct 23.9 L (34.0-46.0) % MCHC 30.4 L (31.0-37.0) g/dL RDW 16.8 H (11.5-15.5) % Neutrophils # 12.2 H (1.3-7.7) k/uL ABG pH (7.35-7.45) ABG pCO2 (35-45) mmHg ABG pO2 (83-108) mmHg ABG HCO3 (21-25) mmol/L ABG Total CO2 (19-24) mmol/L ABG O2 Saturation (94-97) % Chloride 110 H (98-107) mmol/L BUN 80 H (7-17) mg/dL Creatinine 3.91 H (0.52-1.04) mg/dL Glucose 161 H (74-99) mg/dL POC Glucose (mg/dL) 155 H (75-99) mg/dL Calcium 7.5 L (8.4-10.2) mg/dL AST 265 H (14-36) U/L Alkaline Phosphatase 320 H (38-126) U/L Total Protein 5.4 L (6.3-8.2) g/dL Albumin 2.1 L (3.5-5.0) g/dL 02/28/21 02/28/21 02/28/21 Range/Units 13:24 17:31 17:42 WBC (3.8-10.6) k/uL RBC (3.80-5.40) m/uL Hgb (11.4-16.0) gm/dL Hct (34.0-46.0) % MCHC (31.0-37.0) g/dL RDW (11.5-15.5) % Neutrophils # (1.3-7.7) k/uL ABG pH (7.35-7.45) ABG pCO2 (35-45) mmHg ABG pO2 (83-108) mmHg ABG HCO3 (21-25) mmol/L ABG Total CO2 (19-24) mmol/L ABG O2 Saturation (94-97) % Chloride (98-107) mmol/L BUN (7-17) mg/dL Creatinine (0.52-1.04) mg/dL Glucose (74-99) mg/dL POC Glucose (mg/dL) 164 H 191 H 190 H (75-99) mg/dL Calcium (8.4-10.2) mg/dL AST (14-36) U/L Alkaline Phosphatase (38-126) U/L Total Protein (6.3-8.2) g/dL Albumin (3.5-5.0) g/dL Microbiology - Last 24 Hours (Table) 02/24/21 15:35 Blood Culture - Preliminary Blood No Growth after 96 hours 02/24/21 06:05 Blood Culture - Preliminary Blood No Growth after 96 hours Assessment and Plan Assessment: * Status post cardiac arrest, with the downtime of 32 minutes. Patient was extubated 02/16/2021 doing quite well, following commands appropriately, and then re-intubated on 02/17/2021 due to respiratory distress. Patient has been intubated since then. * Severe toxic metabolic encephalopathy, septic encephalopathy with septic shock, with possible some component of previous anoxic encephalopathy. * Acute STEMI, * Acute kidney injury with acute renal failure, slightly improving over the last 2 days. * New onset atrial fibrillation, converted to normal sinus rhythm. * Hepatopathy. * Coagulopathy * Morbid obesity * Diabetes * Hypertension * CAD Plan: * Patient encephalopathy has not improved. Patient opens eyes, but does not clearly track, some inconsistent response. Does not make any clear eye contact. * Computed tomography scan of head revealed degenerative and nonspecific white matter changes are nonspecific. * EEG was abnormal due to background slowing of mild to moderate degree. This is suggestive of generalized cerebral dysfunction as can be seen with toxic metabolic encephalopathy or from diffuse structural brain abnormality. No epileptiform activity was seen. * Medical management as per IM and critical care * Cardiology and nephrology also on board. * Patient started on aspirin 81 mg and Brilinta, also on high dose statins Lipitor 80 mg. * DVT prophylaxis with SCDs. * Patient's family to make decision regarding placement of tracheostomy and PEG tube versus comfort care. * Discussed with nursing detail.
--- NOTE | 2021-02-28 22:48 | PN ---
PROGRESS NOTE DATE OF SERVICE: 02/28/2021 REASON FOR FOLLOWUP: MSSA bacteremia and pneumonia. INTERVAL HISTORY: The patient is afebrile. The patient is hemodynamically stable. FiO2 is currently at 50%. No significant purulent secretions through the ET, diarrhea or any other changes reported by the nursing staff. PHYSICAL EXAMINATION: Blood pressure 133/51 with a pulse of , temperature 99.2. She is 98% on 50% FiO2. General description is a middle-aged female intubated on the vent. Respiratory system: Unlabored breathing, decreased intensity of breath sounds. No wheeze. Heart S1, S2. Regular rate and rhythm. Abdomen soft, no tenderness. LABS: Hemoglobin 7.2, white count 14.1, creatinine 3.91. DIAGNOSTIC IMPRESSION AND PLAN: Patient with acute respiratory failure in this patient admitted to hospital with cardiac arrest, myocardial infarction, status post PTCA and stenting. Did have MSSA bacteremia, source possibly pneumonia. Blood culture has been negative. Patient is currently covered with cefazolin with overall poor prognosis as far as mentation is concerned. Possible hospice care per the family; awaiting their decision. Continue with cefazolin and monitor clinical course closely. MMODL / IJN: [id number] /
[2021-02-28 23:46] LABS: Glucose,Whole Blood 199 mg/dL (75-99)
--- NOTE | 2021-03-01 00:47 | P.PN ---
Subjective This is a pleasant 65 years old female with past medical history of Coronary Artery Disease , Diabetes Mellitus, GERD, Hypertension, hypothyroidism. She is a patient of Dr. Brambila Patient presents with unresponsiveness and and cardiac arrest. CPR was ongoing through EMS, patient was found in ventricular fibrillation per EMS, Pt was given 5 epi, 5 shocks and 450mg of Amniodarone. Pt did have ROSC for a few minutes but when arriving to ER no pulse present. In the emergency room patient got intubated and placed on mechanical ventilation. Initial vitals showed temperature 97.3, heart rate 79, breathing rate 16, blood pressure 118/71 and 92/62 and she was saturating 96% on mechanical ventilation Labs were showing leukocytosis of 20.5 K. INR 2.7 PH 7.2, pCO2 47 and pO2 59. Sodium 137, low potassium 2.8, normal creatinine 0.9. Glucose elevated to 65. Liver enzymes slightly elevated with AST 83 and ALT 36. Trending up troponin 0.02, 9.4 and 23.9. Coronavirus chest x-ray: Status post intubation. There may be underlying pulmonary edema or pneumonia. Repeat fracture noted on the left Nondetected. EKG showing ST elevation in anterior septal leads V1 to V4 Patient was taken to emergent cardiac cath and she underwent cardiac cathete rization with PCI to the totally occluded proximal LAD. After the procedure patient was placed on aspirin, Brillinta ,and beta beni, GONZALEZ inhibitor and statin Today patient is still intubated in the ICU, and on mechanical ventilation. She has PEEP of 10, FiO2 of 40%, tidal volume 375, she has sinus rhythm at 90 bpm, she has a Mcneil and OG tube. She has normal saline running at 50 mL per hour 02/15/2021 ICU intubated and sedated with pulmonary/critical care team followed closely Patient failed sedation trial yesterday and today. Neurology team on the case PEG showing no epileptiform discharge Ejection fraction is 50-55% Chest x-ray no change from yesterday Labs reviewed, WBC down to 14 K, INR down to normal at 1.5 Patient remains on aspirin and Brilinta Continue with gentle hydration, lisinopril, metoprolol and Aldactone with cardiology and nephrology followed the patient closely 02/16/2021 Patient remains in the ICU intubated and sedated. She is undergoing sedation holiday today as well with possible extubation that are on. She is developing fever of 100.4, her WBCs 15 K. EEG showing no epileptiform discharge. Chest x-ray showing increased perihilar opacity. There are sputum culture, proteincalcitonin. Patient is kept on aspirin and Brilinta and gentle hydration. 02/17/2021 Yesterday patient got extubated and she was doing relatively well until during the night when her respiratory status Worsened and by the morning she has to be intubated again for tachypnea and tachycardia and now she is again on mechanical ventilation. Also patient is a spiking a fever and 102 most likely secondary to pneumonia and patient was started on cefepime with culture has been requested from blood and sputum. 02/18/2021 Today patient still intubated and sedated, she still on mechanical ventilation. With pulmonary/critical care team monitor her closely and following her She is developing pneumonia with sepsis status progressed into septic shock, blood culture and sputum culture are growing staph aureus pending final culture results patient was started on IV vancomycin as well as cefepime. her blood pressure started dropping and she needed levothroid, her creatinine trending up and she is developing oliguria as per last hour she made only 5 ml/h when i checked with the night nurse. therefore 1 l liter of bolus is provided. her sugar is elevated more than 300 and if this not improving she might need to be started on insulin drip. her leukocytosis is at 14 k, creatinine trending up to 1.2. she still has a fever of 102 today. Remains on aspirin and Brilinta, pulmonary/critical care team and cardiology teams on the case 02/19/2021 Patient remains in critical condition needs mechanical ventilation on Levophed for her septic shock secondary to MSSA septicemia and pneumonia with positive sputum on blood culture Her antibiotics were adjusted today about pulmonary/critical care team into Levaquin while they discontinued cefepime and IV vancomycin. Patient still running high fever at 102. And she is becoming oliguric with acute kidney injury creatinine trending up to 2.7. Nephrology consult was obtained as she might need dialysis down the road if no improvement. Chest x-ray shows slight worsening on the right side or an changed. When I reviewed by myself. Antibiotics has just adjusted as above. Also she is on normal saline at 50 mm, insulin drip and pressors. Also she is on aspirin, Brilinta for her new ostomy 02/20/2021 Patient remains intubated and sedated in the ICU. She still in critical condition. She is currently in septic shock secondary to MSSA pneumonia and bacteremia. She's been covered with broad-spectrum antibiotics of Levaquin and cefepime. Continue with IV fluid normal sign 75 and pressors with levophed and vasopressin Also he is on insulin drip. Labs showed leukocytosis of 15.6. Creatinine trending up to 3.7 and patient is oliguric. Patient is started on hemodialysis today, second hemodialysis tomorrow 02/21/2021 Patients with septic shock secondary to MSSA pneumonia and septicemia status post cardiac arrest on arrival to the emergency room, resuscitated and currently intubated in the ICU. She developed oliguric renal failure undergoing hemodialysis. She was taken off sedation with no much response, therefore neurologist is involved and she is having negative CT of the brain. Plan to repeat EEG tomorrow Other than that she remains critically ill in the ICU and kept on broad-spectrum antibiotics with cefepime and Levaquin, aspirin and Brilinta Today DC'd her Levaquin Continue with insulin and drip 02/22/2021 Patient remains in septic shock and respiratory failure requiring intubation and mechanical ventilation. Several consultants on the case including pulmonary/critical care team, nephrology, cardiology, neurology. She still needs pressors. Patient has been afebrile for more than 48 hours but her blood culture showing persistent staff. She received 1 dose of IV vancomycin on the top of cefepime and Levaquin. Infectious disease team were consulted today. WBC is 15 K, creatinine 3.7 and she is undergoing hemodialysis today and tomorrow as she is anuric. Glucose controlled on insulin drip. Hemoglobin is stable at 8.0. She is on aspirin and Brilinta given her cardiac arrest upon admission. Prognosis remains guarded 02/23/2021 Patient critically air in the ICU with pulmonary/critical care team monitor her closely and help with vent management. It looks patient brain function is not showing good response while off sedation with neurology team on the case and recommended repeat EEG. Other than that she remains on FiO2 of 50%, she is tachypneic every 2 and afebrile. WBC today 14.7, creatinine 4.7. Hemoglobin 7.4. Antibiotics were adjusted to cefazolin today. Patient did not cut hemodialysis yesterday, she will Probably 1 today. Continue with aspirin Brilinta, with tariff inspector team on the case 02/24/2021 Patient is intubated and sedated. However she underwent an still with of sedation with no significant change in her mental status but the septum time she is septic with positive blood culture for staph, sensitive been covered with cefazolin. She still has a fever today of 100.5. Her FiO2 actually went up to 80% today. Distal tachypneic around 30. Chest x-ray showing worsening left lung infiltrate compared to yesterday. Neurology still in the process offices in mental status. Repeat EEG today is pending. She remains on cefazolin, aspirin and Brilinta. She's getting hemodialysis daily with nephrology team of the case 02/25/2021 Patient remains in the ICU intubated on mechanical ventilation while she is off sedation she does not make good progress mentally. Neurologic service following her closely. First EEG was negative, patient had a repeat EEG and result is pending. She still needs pressors. She has infection with staph aureus and her blood and pneumonia. Chest x-ray showing bilateral airspace opacity and left lower lobe opacity near complete collapse, slight improvement. She has a fever today 100.5. Tachypneic as expected and 31. She is tachycardic at 111, Her FiO2 to 60%. Peep 15. Labs reviewed. Hemoglobin 7.4. Creatinine 4.0. WBC 13.[address] Santos gait. No hemodialysis today and resume it tomorrow per factory machine computer operator. Continue cefazolin, insulin drip at 5.5 units per hour, she's on levophed at 0.07 this morning. No IV fluids 02/26/2021 Patient on the ICU on mechanical ventilation. No signs of neurological recovery. EEG showing no epileptiform discharge suspect seizure. Anoxic brain injury is highly suspected as patient with no recovery. At this point conditions needs to be discussed with the family about all of care. Other than that she remains on levophed at 0.04 this morning, no IV fluid. Still on insulin drip at 4 units per hour. Labs reviewed. Hemoglobin 7.6. Chest x-ray no change. Patient remains on cefazolin, aspirin and Brilinta 02/27/2021 Patient remains in the ICU intubated , with pulmonary/critical care to follow closely. Patient remains in critical condition. She was off sedation with no significant improvement in her mental status and significant severe encephalopathy is suspected secondary to her anoxic brain injury. Patient remains hypoxic requiring FiO2 of 50% Labs reviewed with hemoglobin 7.1. Creatinine 3.9 and she is on hemodialysis Continue with insulin drip with glucose controlled. Continue with antibiotics per ID team and currently on cefazolin. Also patient is on aspirin and Brilinta Objective - Vital Signs Vital signs: Vital Signs Temp 99.2 F 02/27/21 12:00 Pulse 115 H 02/27/21 12:00 Resp 28 H 02/27/21 12:00 BP 121/41 02/26/21 13:33 Pulse Ox 98 02/27/21 12:00 Intake & Output 02/26/21 02/27/21 02/27/21 18:59 06:59 18:59 Intake Total 9850.309 4839.035 566.031 Output Total 1800 60 8 Balance -094.997 9000.035 558.031 Weight 146.3 kg Intake: IV 230 273 145 PRESSURE BAGS Sodium 30 33 15 chloride 0.9 Sodium Chloride 0.9% 1, 200 240 60 000 ml @ 20 mls/hr IV . Q24H [facility]RIANA Rx#:[id number] ceFAZolin 2 gm In Sodium 70 Chloride 0.9% 50 ml @ 100 mls/hr IVPB Q12HR [facility] Rx #:[id number] Intake, IV Titration 29.533 121.035 41.031 Amount Insulin Regular 100 unit 29.533 66.358 30.017 In Sodium Chloride 0.9% 100 ml @ Per Protocol IV .Q0M ADRIANA Rx#:[id number] Norepinephrine 32 mg In 54.677 11.014 Sodium Chloride 0.9% 218 ml @ 0.05 MCG/KG/MIN 3. 202 mls/hr IV .Q24H ADRIANA Rx#:[id number] Tube Feeding 700 840 350 Hemodialysis 300 Other 90 30 30 Output: Urine 0 60 8 Hemodialysis 1800 Other: Voiding Method Indwelling Catheter Indwelling Catheter Indwelling Catheter ABP, PAP, CO, CI - Last Documented Arterial Blood Pressure 106/47 - Exam -GENERAL: The patient is sedated and intubated, not in any acute distress. morbidly obese HEENT: Pupils are round and equally reacting to light. EOMI. No scleral icterus. No conjunctival pallor. Normocephalic, atraumatic. No pharyngeal erythema. No thyromegaly. CARDIOVASCULAR: S1 and S2 present. No murmurs, rubs, or gallops. PULMONARY: Chest is clear to auscultation, no wheezing. ABDOMEN: Soft, nontender, nondistended, normoactive bowel sounds. No palpable organomegaly. MUSCULOSKELETAL: No joint swelling or deformity. EXTREMITIES: No cyanosis, clubbing, or pedal edema. NEUROLOGICAL: Gross neurological examination did not reveal any focal deficits. SKIN: No rashes. no petechiae. - Labs CBC & Chem 7: 02/28/21 08:05 02/28/21 08:05 Labs: Abnormal Lab Results - Last 24 Hours (Table) 02/26/21 02/26/21 02/26/21 Range/Units 17:54 20:17 22:33 WBC (3.8-10.6) k/uL RBC (3.80-5.40) m/uL Hgb (11.4-16.0) gm/dL Hct (34.0-46.0) % MCHC (31.0-37.0) g/dL RDW (11.5-15.5) % ABG pH (7.35-7.45) ABG pCO2 (35-45) mmHg ABG Total CO2 (19-24) mmol/L ABG O2 Saturation (94-97) % Potassium (3.5-5.1) mmol/L Chloride (98-107) mmol/L BUN (7-17) mg/dL Creatinine (0.52-1.04) mg/dL Glucose (74-99) mg/dL POC Glucose (mg/dL) 195 H 165 H 156 H (75-99) mg/dL Calcium (8.4-10.2) mg/dL AST (14-36) U/L Alkaline Phosphatase (38-126) U/L C-Reactive Protein (<1.0) mg/dL Total Protein (6.3-8.2) g/dL Albumin (3.5-5.0) g/dL Procalcitonin (0.02-0.09) ng/mL 02/27/21 02/27/21 02/27/21 Range/Units 00:01 01:57 04:00 WBC (3.8-10.6) k/uL RBC (3.80-5.40) m/uL Hgb (11.4-16.0) gm/dL Hct (34.0-46.0) % MCHC (31.0-37.0) g/dL RDW (11.5-15.5) % ABG pH (7.35-7.45) ABG pCO2 (35-45) mmHg ABG Total CO2 (19-24) mmol/L ABG O2 Saturation (94-97) % Potassium (3.5-5.1) mmol/L Chloride (98-107) mmol/L BUN (7-17) mg/dL Creatinine (0.52-1.04) mg/dL Glucose (74-99) mg/dL POC Glucose (mg/dL) 173 H 139 H (75-99) mg/dL Calcium (8.4-10.2) mg/dL AST (14-36) U/L Alkaline Phosphatase (38-126) U/L C-Reactive Protein (<1.0) mg/dL Total Protein (6.3-8.2) g/dL Albumin (3.5-5.0) g/dL Procalcitonin 3.94 H (0.02-0.09) ng/mL 02/27/21 02/27/21 02/27/21 Range/Units 04:00 04:00 04:01 WBC 17.2 H (3.8-10.6) k/uL RBC 2.43 L (3.80-5.40) m/uL Hgb 7.1 L (11.4-16.0) gm/dL Hct 23.3 L (34.0-46.0) % MCHC 30.7 L (31.0-37.0) g/dL RDW 17.2 H (11.5-15.5) % ABG pH (7.35-7.45) ABG pCO2 (35-45) mmHg ABG Total CO2 (19-24) mmol/L ABG O2 Saturation (94-97) % Potassium 6.0 H (3.5-5.1) mmol/L Chloride 111 H (98-107) mmol/L BUN 88 H (7-17) mg/dL Creatinine 3.87 H (0.52-1.04) mg/dL Glucose 195 H (74-99) mg/dL POC Glucose (mg/dL) 209 H (75-99) mg/dL Calcium 7.3 L (8.4-10.2) mg/dL AST 295 H (14-36) U/L Alkaline Phosphatase 310 H (38-126) U/L C-Reactive Protein 18.0 H (<1.0) mg/dL Total Protein 5.2 L (6.3-8.2) g/dL Albumin 2.0 L (3.5-5.0) g/dL Procalcitonin (0.02-0.09) ng/mL 02/27/21 02/27/21 02/27/21 Range/Units 05:44 05:50 08:13 WBC (3.8-10.6) k/uL RBC (3.80-5.40) m/uL Hgb (11.4-16.0) gm/dL Hct (34.0-46.0) % MCHC (31.0-37.0) g/dL RDW (11.5-15.5) % ABG pH 7.31 L (7.35-7.45) ABG pCO2 47 H (35-45) mmHg ABG Total CO2 25 H (19-24) mmol/L ABG O2 Saturation 97.7 H (94-97) % Potassium (3.5-5.1) mmol/L Chloride (98-107) mmol/L BUN (7-17) mg/dL Creatinine (0.52-1.04) mg/dL Glucose (74-99) mg/dL POC Glucose (mg/dL) 202 H 201 H (75-99) mg/dL Calcium (8.4-10.2) mg/dL AST (14-36) U/L Alkaline Phosphatase (38-126) U/L C-Reactive Protein (<1.0) mg/dL Total Protein (6.3-8.2) g/dL Albumin (3.5-5.0) g/dL Procalcitonin (0.02-0.09) ng/mL 02/27/21 02/27/21 02/27/21 Range/Units 10:00 11:27 11:56 WBC (3.8-10.6) k/uL RBC (3.80-5.40) m/uL Hgb (11.4-16.0) gm/dL Hct (34.0-46.0) % MCHC (31.0-37.0) g/dL RDW (11.5-15.5) % ABG pH (7.35-7.45) ABG pCO2 (35-45) mmHg ABG Total CO2 (19-24) mmol/L ABG O2 Saturation (94-97) % Potassium (3.5-5.1) mmol/L Chloride (98-107) mmol/L BUN (7-17) mg/dL Creatinine (0.52-1.04) mg/dL Glucose (74-99) mg/dL POC Glucose (mg/dL) 124 H 121 H 144 H (75-99) mg/dL Calcium (8.4-10.2) mg/dL AST (14-36) U/L Alkaline Phosphatase (38-126) U/L C-Reactive Protein (<1.0) mg/dL Total Protein (6.3-8.2) g/dL Albumin (3.5-5.0) g/dL Procalcitonin (0.02-0.09) ng/mL Microbiology - Last 24 Hours (Table) 02/24/21 06:05 Blood Culture - Preliminary Blood No Growth after 72 hours 02/24/21 15:35 Blood Culture - Preliminary Blood No Growth after 48 hours Assessment and Plan Assessment: Acute anteroseptal STEMI most likely anoxic brain injury with no improvement in the neurological status Cardiac arrest, status post ventricular fibrillation status post CPR and return of circulation Acute hypoxic respiratory failure needing intubation and mechanical ventilation Sepsis secondary to pneumonia with fever and leukocytosis, developing into septic shock secondary to MSSA in the sputum and blood Metabolic acidosis acute kidney injury with oliguria requiring hemodialysis unresponsiveness off sedation concerning for ischemic brain injury Possible pulmonary edema Leukocytosis, secondary to above Left fracture secondary to CPR Coagulopathy with INR 2.7 upon admission, resolved Hypertension Hypothyroidism Diabetes mellitus History of GERD History of coronary artery disease Morbidly obese. BMI 45.8 Plan: This is a 65 years old female who presents with STEMI and cardiac arrest status post CPR and intubation, underwent cardiac cath and PCI to LAD Continue with aspirin, brillinta Continue with Intubation and mechanical ventilation with pulmonary/critical care team consult with possible extubation. Pulmonary team Antibiotics were adjusted to cefepime. Nephrology consult. Continue with hemodialysis per her factory machine computer operator Tube Cutter on the case Neurologist consulted. Infectious disease consult need to discuss plan of care with family about the goals of treatment Labs and medication were reviewed.. Continue same treatment. Continue with symptomatic treatment. Resume home medication. Monitor lytes and vitals. DVT and GI prophylaxis. Further recommendations as per clinical course of the patient DVT prophylaxis: Aspirin and brillinta GI Prophylaxis: Pepcid Prognosis is guardedThanks very poor
[2021-03-01] MEDS: IPRATROPIUM-ALBUTEROL 3 ML NEB INHALATION SCH ×4 (02:18→12:12)
[2021-03-01 05:29] LABS: Anisocytosis Slight; Basophils % (A) 0 %; Eosinophils # (A) 0.2 k/uL (0-0.7); Eosinophils % (A) 2 %; Hypochromasia Marked; Lymphocytes # (A) 1.2 k/uL (1.0-4.8); Lymphocytes % (A) 9 %; MCH 29.3 pg (25.0-35.0); MCHC 30.6 g/dL (31.0-37.0); MCV 95.7 fL (80.0-100.0); Macrocytosis Slight; Mean Platelet Volume 9.2; Monocytes # (A) 0.4 k/uL (0-1.0); Monocytes % (A) 3 %; Neutrophils # (A) 11.3 k/uL (1.3-7.7); Neutrophils % (A) 85 %; Platelet Count 302 k/uL (150-450); RDW 17.7 % (11.5-15.5); WBC 13.3 k/uL (3.8-10.6)
[2021-03-01 05:38] LABS: ALT <6 U/L (4-34); AST 221 U/L (14-36); Albumin 2.1 g/dL (3.5-5.0); Alkaline Phosphatase 284 U/L (38-126); Anion Gap 12 mmol/L; Calcium 7.2 mg/dL (8.4-10.2); Carbon Dioxide 22 mmol/L (22-30); Chloride 108 mmol/L (98-107); Glucose 166 mg/dL (74-99); Potassium 5.5 mmol/L (3.5-5.1); Sodium 142 mmol/L (137-145); Total Bilirubin 0.2 mg/dL (0.2-1.3); Total Protein 5.3 g/dL (6.3-8.2)
[2021-03-01 05:43] LABS: African American GFR (CKD) 12 (>60 ml/min/1.73 sqM); Non-African American GFR(CKD) 10 (>60 ml/min/1.73 sqM)
[2021-03-01 05:46] LABS: Blood Urea Nitrogen 109 mg/dL (7-17)
[2021-03-01] MEDS: INSULIN ASPART (NovoLOG) 100 UNIT/ML VIAL SQ SCH ×2 (06:15→14:24)
[2021-03-01] MEDS: LEVOTHYROXINE 100 MCG TAB PO SCH (06:16)
[2021-03-01 06:32] LABS: ABG Base Excess -3.9 mmol/L; ABG HCO3 23 mmol/L (21-25); ABG PCO2 46 mmHg (35-45); ABG PO2 114 mmHg (83-108); ABG TCO2 24 mmol/L (19-24)
[2021-03-01 06:37] LABS: Allen Test Performed? No
[2021-03-01] MEDS ORDERED: INSULIN DETEMIR (LEVEMIR) 100 UNIT/ML SYR SQ SCH (07:00)
--- NOTE | 2021-03-01 08:04 | XR ---
EXAMINATION TYPE: XR chest 1V portable DATE OF EXAM: 03/01/2021 COMPARISON: 02/26/2021 HISTORY: SOB, Follow Up FINDINGS: Indwelling tubes and catheters are unchanged. No change in bibasilar opacities. Stable appearance of the cardio-mediastinal structures at this time. Pleural effusion unchanged. IMPRESSION: 1. Stable portable chest. Clinical correlation and follow up until resolution is recommended.
--- NOTE | 2021-03-01 09:25 | CDI ---
acute diastolic heart failure Documentation Clarification Form Date: 03/01/2021 09:07:00 AM From: Roxi Aviles CCS, CCDS Admit Date: 02/13/2021 03:34:00 PM Patient Name: Radha Hale Visit Number: [id number] Discharge Date: ATTENTION: The Clinical Documentation Specialists (CDI) and [facility] Coding Staff appreciate your assistance in clarifying documentation. Please respond to the clarification below the line at the bottom and electronically sign. The CDI & [facility] Coding staff will review the response and follow-up if needed. Please note: Queries are made part of the Legal Health Record. If you have any questions, please contact the author of this message via ITS. Dr. Bienvenido Betancourt: CHF is documented in the 02/22 Cardiology Progress Note: " Chest x-ray today correlates for pneumonia, congestive heart failure, and possible ARDS. Her echocardiogram showed normal LV function with ejection fraction of 55-60%." Additional information regarding the type and acuity of CHF is requested. History/Risk Factors per the 02/14 H/P: CAD, DM, GERD, Hypertension, Hypothyroidism. Clinical Indicators: Presented to the ED on 02/13 via EMS in Cardiac Arrest with CPR in progress. Patient was intubated in the ED, was in Ventricular Fibrillation, shocked a total of 5 times & given 450 mg of Amiodarone with ROSC. Admitted with an Acute TX, Cardiac Arrest with V Fib. 02/13 VS: T 97.3, P 79, R 16 - 27 (vent), BP 118/71, 93/57; PO 96 on vent. BMI: 49.0 02/13 LAB: WBC 20.5, PT 26.1, INR 2.7; Blood Gas ABG: pH 7.26, pCO2 47, pO2 59, O2 Sat 87.5; K 2.8, CO2 17, Glucose 265, AST 83, ALT 36, Troponin 0.022, 9.470, 23.900; total Protein 6.2, Albumin 3.4. BNP not done. 02/14 ECHO: Left ventricular size is normal, mild concentric left ventricular hypertrophy. left ventricular systolic function is low normal with EF between 50-55%. 02/20 ECHO: Left ventricular size is normal. There is severe concentric left ventricular hypertrophy. Left ventricular systolic function is normal w/EF 55- 60%. 02/13 CXR: May be underlying pulmonary edema or pneumonia. 02/16 CXR: Correlate for possible mild pulmonary vascular congestion. Continued small left pleural effusion with atelectasis vs consolidation in retrocardiac region. 02/18 CXR: Mild pulmonary vascular congestion which is worsened in the interval. 02/21 CXR: Correlate for CHF vs diffuse interstitial and alveolar pneumonia. 02/22 CXR: Correlate for pneumonia, CHF, ARDS, difficult to exclude effusion. Treatment 02/13: To labels molder for Heart Catheterization and PTCA w/stent placement. Remained intubated, IV Ativan, IV Propofol, IV Heparin, IV Lopressor, IV Kcl, IV Atropine, INH Duoneb. 02/16 Extubated. Reintubated 02/17. 02/19: IV Lasix 80 mg x1. 02/20 IV Lasix 20 mg x1. In your professional opinion, can you please clarify the Acuity and Type of CHF if known? [ ] Acute Systolic Heart Failure [ ] Chronic Systolic Heart Failure [ ] Acute on Chronic Systolic Heart Failure [ ] Acute Diastolic Heart Failure [ ] Chronic Diastolic Heart Failure [ ] Acute on Chronic Diastolic Heart Failure [ ] Acute Systolic & Diastolic Heart Failure [ ] Chronic Systolic & Diastolic Heart Failure [ ] Acute on Chronic Heart Failure Systolic & Diastolic Heart Failure [ ] Heart Failure is ruled out [ ] Other, please specify [ ] Unable to determine (Template Last Revised: April 2020) MTDD
[2021-03-01] MEDS: ENOXAPARIN 30 MG/0.3 ML SYRINGE SQ SCH (09:29)
[2021-03-01] MEDS: CHLORHEXIDINE GLUCONATE 15 ML CUP MUCOUS MEM SCH (09:29)
[2021-03-01] MEDS: PANTOPRAZOLE 40 MG/10 ML VIAL IVP SCH (09:29)
[2021-03-01] MEDS: ASPIRIN 81 MG PO SCH (09:31)
[2021-03-01] MEDS: TICAGRELOR 90 MG TAB PO SCH (09:31)
[2021-03-01] MEDS: NOREPINEPHRINE 32 MG in SODIUM CHLORIDE 0.9% 218 ML IV SCH (09:44)
[2021-03-01 12:58] VITALS: BMI 51.1
[2021-03-01 13:25] LABS: Glucose,Whole Blood 170 mg/dL (75-99)
--- NOTE | 2021-03-01 14:19 | P.PN ---
Subjective Progress Note Date: 03/01/21 Principal diagnosis: Acute hypoxic respiratory failure secondary to auto possible cardiac arrest with prolonged down time, 34 minutes before return of spontaneous circulation. On 02/22/2022 patient seen in follow-up in intensive care unit. She remains unresponsive, she has been off sedation since 02/20/2021. She has not received any Diprivan or narcotics. She remains intubated on assist control mode of ventilation with a rate of 28, tidal volume is 400, FiO2 of 50% and PEEP of 15. This morning's blood gas shows pO2 of 85, pCO2 50, and pH of 7.29 and this was done on the above-mentioned vent settings. She is on small amount of norepinephrine, 11 mics per minute, vasopressin has been discontinued, she is on 0.9 normal saline at a rate of 20 ML per hour, no other drips. She is in sinus mechanism slightly tachycardic with a rate of 105. She has not had recurrence of A. fib. She is on aspirin and Brilinta for a recent history of stenting of the LAD 2. No other anti-coagulants at this time. Her chest x-ray today shows diffuse bilateral infiltrates that are stable in appearance, and consolidative process in the left lower lobe with a small left pleural effusion, patient was started on hemodialysis and she had hemodialysis treatments for the last 2 days. On 02/21/2021 she had 1 L of fluid removed with hemodialysis, and just ultrafiltration on 02/20/2021 with no fluid removed. Urine output is minimal in the order of 5-10 mL per hour, patient is an significantly positive net fluid balance since admission, she has significant third spacing and edema involving her upper and lower extremities and trunk. She is at least 10 kg positive since admission. Low-grade fevers overnight. T-max is 99.6F. Patient remains on cefepime for antibiotic coverage, her blood cultures from 02/17/2021 showed MSSA, follow-up blood cultures sent on 02/20/2021 and 02/21/2021 are showing gram-positive cocci in groups. Final culture is pending. Today's labs show im provement in white count which is down to 15.4, hemoglobin is 8.0, platelet count is 147, sodium is 144, potassium is 3.4, chloride is 112, B1 is 56, and creatinine is 3.74, renal profile is relatively stable, her AST is 132, slightly increased, ALT is within normal limits at 25, alkaline phosphatase is 232, her last pro-calcitonin from yesterday 02/21/2021 was still significantly elevated at 16.9. Patient did receive a dose of vancomycin a few days back, her last Vanco troph was on 02/19/2021 and was at 19.0. Neurologically patient doesn't attempt to open eyes, does not follow any purposeful command, she does have a positive corneal reflex, positive cough, negative gag, negative Babinski. CT of the brain from yesterday on 02/21/2021 showed no acute intracranial hemorrhage or midline shift, mild diffuse age-related cerebral atrophy and chronic small vessel ischemic change without significant interval change. There was worsening paranasal sinus findings possibly related to intubation versus sinusitis. Neurology is following. Reevaluated today on 02/23/21, patient remains intubated and mechanically ventilated, she is on assist control rate of 28 tidal volume 400 FiO2 50% PEEP o f 15. Remains on norepinephrine at 0.03 mcg/kg/m on insulin for 5.5 units per hour she is off sedation completely, she is not requiring any narcotics or sedatives. She is not on any paralytics. ABG showed a pO2 of 124 pCO2 47 pH of 7.30. Patient is undergoing hemodialysis during my evaluation. Chest x-ray showed bilateral infiltrates greater on the left compared to the right, I believe the findings are mostly findings of CHF not true pneumonia although the patient may have aspirated during the code. WBC count is 14.7, hemoglobin is 7.4 electrolytes are normal BUN is 82 creatinine 4.74. Patient is being followed by many consultants including cardiology and nephrology and neurology, and at this point I believe her condition is extremely poor, and I doubt if we are going to notice any neurological recovery. May have to approach family somewhat along the line regarding CODE STATUS and comfort care measures. Reevaluated today on 02/24/21, patient remains in the ICU, intubated and m echanically ventilated. She is on assist control rate of 28 tidal volume 400 FiO2 on the percent and PEEP of 15. ABG is marginal with a pO2 of 95 pCO2 49 pH of 7.33. Chest x-ray is showing worsening left lung edema and or infiltrates. Patient is supposed to be dialyzed today, and I believe that would likely improve her pulmonary status. Her FiO2 had to be increased up to 100% last night. And today we will try to titrated down and maintain O2 saturation above 90%. Renal functioning remains poor with elevated BUN elevated creatinine of 7.06. WBC count is 15.1 hemoglobin is 8.0. Patient remains empirically on antibiotics. She is also on Lovenox/DVT prophylaxis. And she is also on Sheri linta, on Protonix for GI prophylaxis. His been on off norepinephrine intermittently Reevaluated today on 02/25/21, patient remains in the ICU intubated and mechanically ventilator. She is on assist control rate of 28 tidal volume 400 FiO2 60% PEEP is 15. Today after reviewing that ABG I cut down the PEEP to 12 and I cut down the FiO2 to 50%. Patient is requiring norepinephrine at 0.07 mcg/kg/m she is also on insulin at 5.5 units per hour she is on cefazolin, IV fluids at KVO, patient is off all narcotics and sedatives, and yet there is no evidence of any neurological response whatsoever except she may slightly open her eyes to deep painful stimuli. Otherwise no purposeful responses noted whatsoever. Chest x-ray showed adequate placement of the endotracheal tube. Bilateral airspace opacities noted mostly in the left lower lobe with atelectasis ABG today showed a pO2 of 171 pCO2 49 pH of 7.3 renal functioning is worsening. patient is not receiving hemodialysis today. WBC count is 16.5 hemoglobin is 7.8. Reevaluated today on 02/26/21, patient remains in the ICU, intubated and mechanically ventilated. Have not noticed any signs of neurological recovery over the last week, patient remains practically about the same. She is now on assist control rate of 28 tidal volume 400 FiO2 50% and PEEP is 10 ABG showed a pO2 of 128 pCO2 44 pH of 7.3 to and I cut down her FiO2 to 45%. Chest x-ray continues to show bibasilar opacities, improving overall, her electrolytes are normal except for potassium of 5.8 however her BUN is 107 creatinine is 5 and the patient is about to receive dialysis sometime in the next hour or so in the ICU. Her drips include norepinephrine at 0.04 she is also on insulin at 4 units per hour and she is receiving enteral feeding/Nepro. Patient remains off narcotics and sedatives and again no signs of neurological recovery noted please refer to full neurological evaluation. Reevaluated today on 02/27/21, remains in the ICU, intubated and mechanically ventilated, no changes whatsoever noted in the last few days. Patient remains on assist control rate of 28 tidal volume 400 FiO2 50% PEEP of 10 remains on daily hemodialysis ABG today showed a pO2 of 107 pCO2 47 pH of 7.31. Patient is not requiring any sedation, has been off sedation completely for the last 2 days to assess mental status, and her mental status is extremely poor, patient is unresponsive to any stimuli. Her WBC count is 17.2 hemoglobin 7.1. Electrolytes are abnormal with ablated potassium of 6.0 will correct with hemodialysis today. BUN is 88 creatinine is 3.87. No changes in medications over the last 24 hours. Patient is not requiring any sedation but she is requ iring norepinephrine at 0.05 mcg/kg/m, and she is also requiring insulin at 8.5 units per hour. Remains on GI and DVT prophylaxis, remains on Brilinta, remains on cefazolin. Reevaluated today on 02/28/21, remains in the ICU intubated and mechanically ventilated. Patient remains on assist control rate of 28 tidal volume 400 FiO2 50% PEEP of 10. ABG showed a pO2 of 125 pCO2 of 50 pH of 7.33. Patient remains off sedation completely, she is requiring insulin at 4.5 units per hour and she is also on norepinephrine 0.03 mcg/kg/m. Today the patient is opening her eyes, but she is not following any instructions. WBC count is 14.1 hemoglobin 7.2. Normal electrolytes were noted however her BUN is 80 creatinine is 3.91, patient may be undergoing dialysis sometime today. Not much of a spinning frame changer the last 24 hours overall. Her chest x-ray was done in the last couple of days mostly because from my reviews conversation with the daughter family may be inclined to consider comfort care measures on this patient. Reevaluated today on 03/01/21, patient remains intubated and mechanically vent ilated, unresponsive to any stimuli, opens eyes, moving her head back and forth, but not responsive to any verbal stimuli. Patient is on assist control rate 28, tidal volume 400, FiO2 50% and PEEP of 10. After looking at the ABG I changed her rate to 32 FiO2 cut down to 45% and I cut down the PEEP to 8. ABG showed a pO2 of 114 pCO2 46 pH of 7.30. Patient is off sedation completely for the last 4 days, she is on norepinephrine at 0.0 to micrograms per kilo per minute, IV fluids at KVO, still receiving daily dialysis, potassium is 5.5 today BUN is 109 creatinine 4.25. CBC showed a hemoglobin of 7 Objective - Vital Signs Vital signs: Vital Signs Temp 97.8 F 03/01/21 08:00 Pulse 116 H 03/01/21 12:25 Resp 28 H 03/01/21 10:00 BP 157/66 03/01/21 10:00 Pulse Ox 92 L 03/01/21 10:00 Intake & Output 02/28/21 03/01/21 03/01/21 18:59 06:59 18:59 Intake Total 9994.541 5974 487.165 Output Total 80 5 65 Balance 7446.716 4657 422.165 Weight 152.6 kg Intake: IV 306 326 142 PRESSURE BAGS Sodium 36 36 12 chloride 0.9 Sodium Chloride 0.9% 1, 220 240 80 000 ml @ 20 mls/hr IV . Q24H ADRIANA Rx#:[id number] ceFAZolin 2 gm In Sodium 50 50 50 Chloride 0.9% 50 ml @ 100 mls/hr IVPB Q12HR ADRIANA Rx #:[id number] Intake, IV Titration 75.551 35.165 Amount Insulin Regular 100 unit 59.125 In Sodium Chloride 0.9% 100 ml @ Per Protocol IV .Q0M ADRIANA Rx#:[id number] Norepinephrine 32 mg In 16.426 35.165 Sodium Chloride 0.9% 218 ml @ 0.05 MCG/KG/MIN 3. 202 mls/hr IV .Q24H ADRIANA Rx#:[id number] Tube Feeding 840 840 280 Other 120 60 30 Output: Urine 80 5 65 Other: Voiding Method Indwelling Catheter Indwelling Catheter ABP, PAP, CO, CI - Last Documented Arterial Blood Pressure 83/36 - Exam GENERAL EXAM: Revealed 64-year-old female obese, unresponsive to any stimuli, intubated and mechanically ventilated. Opens eyes moving head back and forth. Head: Atraumatic, normocephalic. The tracheal tube and orogastric tube are intact. EYES: PERRLA, EOMI, anicteric. NOSE: Clear with pink turbinates. THROAT: No erythema or exudates. NECK: Obese neckNo masses, no JVD, no thyroid enlargement, no adenopathy. CHEST: No chest wall deformity. Symmetrical expansion. LUNGS: Crackles at the bases no rhonchi and no wheezes. CVS: Regular rate and rhythm, normal S1 and S2, no gallops, no murmurs, no rubs ABDOMEN: Obese soft nontender no megaly no rebound. EXTREMITIES: 2+ bipedal edema. SKIN: No rashes CENTRAL NERVOUS SYSTEM: Unresponsive, opens eyes and moves her head back and forth. No purposeful movement noted. - Labs CBC & Chem 7: 03/01/21 05:15 03/01/21 05:15 Labs: Abnormal Lab Results - Last 24 Hours (Table) 02/28/21 02/28/21 02/28/21 Range/Units 17:31 17:42 23:45 WBC (3.8-10.6) k/uL RBC (3.80-5.40) m/uL Hgb (11.4-16.0) gm/dL Hct (34.0-46.0) % MCHC (31.0-37.0) g/dL RDW (11.5-15.5) % Neutrophils # (1.3-7.7) k/uL ABG pH (7.35-7.45) ABG pCO2 (35-45) mmHg ABG pO2 (83-108) mmHg ABG O2 Saturation (94-97) % Potassium (3.5-5.1) mmol/L Chloride (98-107) mmol/L BUN (7-17) mg/dL Creatinine (0.52-1.04) mg/dL Glucose (74-99) mg/dL POC Glucose (mg/dL) 191 H 190 H 199 H (75-99) mg/dL Calcium (8.4-10.2) mg/dL AST (14-36) U/L Alkaline Phosphatase (38-126) U/L Total Protein (6.3-8.2) g/dL Albumin (3.5-5.0) g/dL 03/01/21 03/01/21 03/01/21 Range/Units 05:15 05:15 05:40 WBC 13.3 H (3.8-10.6) k/uL RBC 2.40 L (3.80-5.40) m/uL Hgb 7.0 L (11.4-16.0) gm/dL Hct 23.0 L (34.0-46.0) % MCHC 30.6 L (31.0-37.0) g/dL RDW 17.7 H (11.5-15.5) % Neutrophils # 11.3 H (1.3-7.7) k/uL ABG pH 7.30 L (7.35-7.45) ABG pCO2 46 H (35-45) mmHg ABG pO2 114 H (83-108) mmHg ABG O2 Saturation 98.0 H (94-97) % Potassium 5.5 H (3.5-5.1) mmol/L Chloride 108 H (98-107) mmol/L BUN 109 H* (7-17) mg/dL Creatinine 4.25 H (0.52-1.04) mg/dL Glucose 166 H (74-99) mg/dL POC Glucose (mg/dL) (75-99) mg/dL Calcium 7.2 L (8.4-10.2) mg/dL AST 221 H (14-36) U/L Alkaline Phosphatase 284 H (38-126) U/L Total Protein 5.3 L (6.3-8.2) g/dL Albumin 2.1 L (3.5-5.0) g/dL 03/01/21 Range/Units 13:23 WBC (3.8-10.6) k/uL RBC (3.80-5.40) m/uL Hgb (11.4-16.0) gm/dL Hct (34.0-46.0) % MCHC (31.0-37.0) g/dL RDW (11.5-15.5) % Neutrophils # (1.3-7.7) k/uL ABG pH (7.35-7.45) ABG pCO2 (35-45) mmHg ABG pO2 (83-108) mmHg ABG O2 Saturation (94-97) % Potassium (3.5-5.1) mmol/L Chloride (98-107) mmol/L BUN (7-17) mg/dL Creatinine (0.52-1.04) mg/dL Glucose (74-99) mg/dL POC Glucose (mg/dL) 170 H (75-99) mg/dL Calcium (8.4-10.2) mg/dL AST (14-36) U/L Alkaline Phosphatase (38-126) U/L Total Protein (6.3-8.2) g/dL Albumin (3.5-5.0) g/dL Microbiology - Last 24 Hours (Table) 02/24/21 06:05 Blood Culture - Preliminary Blood No Growth after 120 hours 02/24/21 15:35 Blood Culture - Preliminary Blood No Growth after 96 hours Assessment and Plan Assessment: Impression: Acute hypoxic respiratory failure secondary to cardiac arrest with prolonged downtime of 34 minutes until return of spontaneous circulation. Intubated on 02/13 , extubated on 02/16 reintubated on 02/17 and he remains intubated and unresponsive. Possible septic shock secondary to MSSA bacteremia patient remains on antibiotics. Did receive vancomycin she is now on cefazolin had elevated pro ca lcitonin level. Required pressors for low blood pressure. Remains on norepinephrine Suspect acute metabolic encephalopathy and anoxic brain injury Acute anterior wall myocardial infarction status post LAD the stenting on 02/13 Type 2 diabetes Benign essential hypertension Hypothyroidism Morbid obesity History of coronary artery disease New-onset atrial fibrillation History of marijuana smoking Recommendation: Continue ventilatory support, animal vent changes were done today. Keep patient off sedation completely Continue dialysis Continue antibiotics for possible cultures, placed on cefazolin. Infectious disease on the case. Patient remains critically ill Continue GI and DVT prophylaxis. Prognosis is guarded, obviously the patient sustained significant anoxic brain injury. Still awaiting feedback from her daughter Katerine whom I talked to and she was almost agreeable to go to comfort care measures, but she would like to discuss her condition with all her family members including her father and brother Hopefully the patient could be transitioned to comfort care measures in the next 24 hours. Awaiting to hear from family. Critical care time is over 30 minutes. Time with Patient: Greater than 30
[2021-03-01] MEDS ORDERED: ONDANSETRON 4 MG/2 ML VIAL IVP PRN (14:54)
[2021-03-01] MEDS ORDERED: MORPHINE SULFATE 4 MG/ML SYRINGE IV PRN (14:54)
[2021-03-01] MEDS ORDERED: LORazepam 2 MG/ML INJ IV PRN (14:54)
[2021-03-01] MEDS ORDERED: ATROPINE OPHTH SOLN 1% 5ML BTL SUBLINGUAL PRN (14:54)
[2021-03-01 14:56] VITALS: RESP 32
[2021-03-01] MEDS ORDERED: MORPHINE SULFATE (100 MG/2 ML) 100 MG in SODIUM CHLORIDE 0.9% 100 ML IV SCH (15:00)
[2021-03-01] MEDS ORDERED: SCOPOLAMINE 1.5MG/72HR PATCH TRANSDERM SCH (15:00)
--- NOTE | 2021-03-01 15:16 | PN ---
PROGRESS NOTE Patient is seen for followup for acute kidney injury. She is currently hemodialysis dependent. The patient has significant edema. She did receive daily dialysis. There were plans for possible comfort care measures. Patient was not dialyzed yesterday. She will be dialyzed again today. Currently patient has no urine output. On examination today, the patient is on the vent. I see that she is opening eyes. It does not look like she has been following commands. PHYSICAL EXAMINATION: Blood pressure this morning 126/49, heart rate 116 per minute. Examination of the heart S1, S2. Examination of the lungs, bilateral breath sounds are heard. Abdomen: Soft, obese. Examination of lower extremities edema 2 to 3+ bilaterally. LAB: Show sodium 142, potassium 5.5, chloride 108, BUN 109, serum creatinine of 4.2. ASSESSMENT: 1. Acute kidney injury, acute tubular necrosis, currently oliguric and dialysis dependent. The patient was receiving daily treatments. She did not get a treatment yesterday. She will be dialyzed today. There were plans for possible comfort care measures. However, if this is not the case, we will continue with daily treatments. This is mainly secondary to significant volume overload. 2. Hyperkalemia associated with acute kidney injury expect improvement post dialysis. 3. Encephalopathy with perhaps some improvement as patient opens eyes but not following commands. She has been off sedation for many days now. 4. Acute hypoxic respiratory failure, currently on the vent. 5. MSSA bacteremia. Repeat cultures from February 24 are negative. The patient is being followed by ID. 6. Anemia with no active bleeding noted, maintained on Aranesp. 7. Volume overload, continue daily treatments for now. 8. Status post cardiac arrest with prolonged down time of about 34 minutes. PLAN: Hemodialysis today and then again in a.m. Increase UF as tolerated. MMODL / IJN: [id number] /
--- NOTE | 2021-03-01 16:34 | PN ---
PROGRESS NOTE DATE OF SERVICE: 03/01/2021 This 65-year-old woman who was admitted with acute MSSA sepsis and septic shock also had some change in mental status. Patient also had prolonged CPR prior to admission. Multiple consultants are following the patient. The patient has renal failure also. Dr. Gerber has seen the patient. The patient continues to be unresponsive to any stimuli. Dr. Gerber had a detailed discussion with the patient's daughter and is awaiting feedback from the family regarding the scope for continuation of treatment. Currently hemoglobin is 7, white count is 13.3, and the blood cultures showed Staph aureus also on multiple cultures. The last culture on 02/24 has been negative. Past medical history reviewed. Review of systems could not be taken. CURRENT MEDICATIONS: Reviewed. They include Tylenol, atropine, Ativan, morphine, scopolamine. PHYSICAL EXAMINATION: Patient is on mechanical ventilation. Pulse is 64, blood pressure respiration 26, temperature normal, pulse ox 98% on mechanical ventilation. HEENT: Conjunctivae normal. NECK: No jugular venous distention. CARDIOVASCULAR: S1, S2 muffled. RESPIRATION: Breath sounds diminished at the bases. A few scattered rhonchi and crackles. ABDOMEN: Soft, nontender. LEGS: No edema. No swelling. NERVOUS SYSTEM: ntd LABS: Hemoglobin 7.2 . Other labs are noted. ASSESSMENT: 1. Acute MSSA sepsis, septic shock and acute hypoxic respiratory failure secondary to sepsis, on mechanical ventilation. 2. Change in mental status and acute toxic encephalopathy from hypoxic encephalopathy. 3. Prolonged CPR prior to admission. 4. Acute anterior wall myocardial infarction, status post LAD stenting on February 13. 5. Acute metabolic acidosis, multifactorial. 6. Acute kidney injury with acute renal failure. 7. Possible pulmonary edema. 8. Leukocytosis. 9. Rib fractures secondary to CPR. 10.Coagulopathy with INR 2.7, possibly secondary to sepsis, present on admission. 11.Hypertension. 12.Hypothyroidism. 13.Diabetes mellitus, type 2. 14.Gastroesophageal reflux disease. 15.History of coronary artery disease. 16.Morbid obesity; BMI 44.8. 17.FULL CODE. RECOMMENDATIONS AND DISCUSSION: I recommend to continue current medications, continue with the monitoring, symptomatic treatment. Otherwise, as mentioned earlier, await input from the family regarding the further course of action. Currently patient is on mechanical ventilation. Closely monitor and continue the antibiotics. Cultures are as mentioned earlier. Prognosis extremely guarded because of the above-mentioned multiple complex medical issues. Discussed with staff. Further recommendations to follow. MMODL / IJN: [id number] / YO
[2021-03-01 16:44] VITALS: BP 107/49; TEMP 98.9
--- NOTE | 2021-03-01 17:00 | PN ---
PROGRESS NOTE DATE OF SERVICE: 03/01/2021 REASON FOR FOLLOWUP: MSSA bacteremia and pneumonia. INTERVAL HISTORY: The patient is a afebrile. The patient is hemodynamically stable. FiO2 is currently 45%. No significant purulent secretion, diarrhea or any changes reported by the nursing staff. PHYSICAL EXAMINATION: Blood pressure 102/45, pulse of 120, temperature 98.7. She is 92% on 45% FIO2. General description is a middle-aged female lying in bed in no distress. Heart S1, S2. Regular rate and rhythm. Abdomen soft, no tenderness. LABS: Hemoglobin is 7, white count 13.3, creatinine 4.25. DIAGNOSTIC IMPRESSION AND PLAN: Patient with MSSA bacteremia secondary to the pneumonia. Repeat blood culture negative. ( ) because of her cardiac arrest and neurological status and possible ( ). Antibiotic can be safely discontinued. Continue supportive care. MERRICKL / JOHNN: [id number] /
[2021-03-01 17:35] VITALS: PULSE 123
--- NOTE | 2021-03-04 19:46 | DS ---
DISCHARGE SUMMARY PRELIMINARY CAUSE OF : Acute MSSA sepsis, septic shock and acute hypoxic respiratory failure secondary to sepsis. OTHER DIAGNOSES: 1. Change in mental status and acute toxic metabolic encephalopathy, hypoxic encephalopathy. 2. Prolonged CPR prior to admission. 3. Acute anterior wall myocardial infarction, status post LAD stenting on February 13. 4. Acute metabolic acidosis, multifactorial. 5. Acute kidney injury with acute renal failure. 6. Possible pulmonary edema. 7. Leukocytosis. 8. Rib fracture secondary CPR. 9. Coagulopathy with INR 2.7, possibly secondary to sepsis, present on admission. 10.Hypertension. 11.Hypothyroidism. 12.Diabetes mellitus, type 2. 13.Gastroesophageal reflux disease. 14.History of coronary artery disease. 15.Morbid obesity. BMI of 44.8. HISTORY OF PRESENT ILLNESS: This 65-year-old woman with a past medical history of multiple medical problems, as mentioned earlier, was admitted with emesis, sepsis and multiple other complex medical issues. The patient had acute respiratory failure. Patient was mechanically ventilated and intubated. The patient had a prolonged cardiac arrest and prolonged down time. The prognosis remained extremely guarded throughout the hospitalization. The patient had emesis and sepsis which were treated in conjunction with Dr. Lerner, Dr. Gerber and multiple other consultants who followed the patient in the ICU, but because of lack of improvement, the case was discussed with the family and the family decided to go with comfort measures. The patient because of the above-mentioned multiple complex medical issues. Please refer to the multiple consultations and progress notes for further details. The prognosis was extremely guarded throughout hospitalization. The patient was followed by Dr. Thierno Brambila in the outpatient setting. MERRICKL / JOHNN: [id number] /
== END 2021-03-01 19:25 | disposition expired | DRG 246 ==
LOC: EC 14:48 → 2SICU 15:34
PROVIDERS: ADMIT Internal Medicine; ATTEND Internal Medicine
PROC: 3E043XZ Introduction of Vasopressor into Central Vein, Percutaneous Approach (ICD-10-PCS; 2021-02-13)
PROC: B2111ZZ Fluoroscopy of Multiple Coronary Arteries using Low Osmolar Contrast (ICD-10-PCS; principal; 2021-02-13 13:20)
PROC: 4A023N7 Measurement of Cardiac Sampling and Pressure, Left Heart, Percutaneous Approach (ICD-10-PCS; principal; 2021-02-13 13:20)
PROC: 027035Z Dilation of Coronary Artery, One Artery with Two Drug-eluting Intraluminal Devices, Percutaneous Approach (ICD-10-PCS; principal; 2021-02-13 13:20)
PROC: 5A1945Z Respiratory Ventilation, 24-96 Consecutive Hours (ICD-10-PCS; 2021-02-13 13:20)
PROC: 0BH17EZ Insertion of Endotracheal Airway into Trachea, Via Natural or Artificial Opening (ICD-10-PCS; 2021-02-13 13:20)
PROC: 0DH67UZ Insertion of Feeding Device into Stomach, Via Natural or Artificial Opening (ICD-10-PCS; 2021-02-15)
PROC: 3E0G76Z Introduction of Nutritional Substance into Upper GI, Via Natural or Artificial Opening (ICD-10-PCS; 2021-02-15)
PROC: 05HF33Z Insertion of Infusion Device into Left Cephalic Vein, Percutaneous Approach (ICD-10-PCS; 2021-02-15)
PROC: 03HY32Z Insertion of Monitoring Device into Upper Artery, Percutaneous Approach (ICD-10-PCS; 2021-02-17)
PROC: 4A133B1 Monitoring of Arterial Pressure, Peripheral, Percutaneous Approach (ICD-10-PCS; 2021-02-17)
PROC: 4A133J1 Monitoring of Arterial Pulse, Peripheral, Percutaneous Approach (ICD-10-PCS; 2021-02-17)
PROC: 02HV33Z Insertion of Infusion Device into Superior Vena Cava, Percutaneous Approach (ICD-10-PCS; 2021-02-17)
PROC: 0BH17EZ Insertion of Endotracheal Airway into Trachea, Via Natural or Artificial Opening (ICD-10-PCS; 2021-02-17)
PROC: 5A1955Z Respiratory Ventilation, Greater than 96 Consecutive Hours (ICD-10-PCS; 2021-02-17)
PROC: 5A09357 Assistance with Respiratory Ventilation, Less than 24 Consecutive Hours, Continuous Positive Airway Pressure (ICD-10-PCS; 2021-02-17)
PROC: 05HQ33Z Insertion of Infusion Device into Left External Jugular Vein, Percutaneous Approach (ICD-10-PCS; 2021-02-20)
PROC: 02HV33Z Insertion of Infusion Device into Superior Vena Cava, Percutaneous Approach (ICD-10-PCS; 2021-02-20)
PROC: 5A1D70Z Performance of Urinary Filtration, Intermittent, Less than 6 Hours Per Day (ICD-10-PCS; 2021-02-20)
DX: I21.09 ST elevation (STEMI) myocardial infarction involving other coronary artery of anterior wall (principal); G92.8 Other toxic encephalopathy; J15.211 Pneumonia due to Methicillin susceptible Staphylococcus aureus; A41.01 Sepsis due to Methicillin susceptible Staphylococcus aureus; R65.21 Severe sepsis with septic shock; J69.0 Pneumonitis due to inhalation of food and vomit; J96.01 Acute respiratory failure with hypoxia; N17.0 Acute kidney failure with tubular necrosis; I50.31 Acute diastolic (congestive) heart failure; G93.1 Anoxic brain damage, not elsewhere classified; D68.9 Coagulation defect, unspecified; E87.2 Acidosis; I47.2 Ventricular tachycardia; J98.11 Atelectasis; M96.89 Other intraoperative and postprocedural complications and disorders of the musculoskeletal system; Z68.42 Body mass index [BMI] 45.0-49.9, adult; I11.0 Hypertensive heart disease with heart failure; Z20.822 Contact with and (suspected) exposure to COVID-19; I49.01 Ventricular fibrillation; Z51.5 Encounter for palliative care; I46.2 Cardiac arrest due to underlying cardiac condition; G93.89 Other specified disorders of brain; E11.65 Type 2 diabetes mellitus with hyperglycemia; E66.01 Morbid (severe) obesity due to excess calories; Z66 Do not resuscitate; Z99.2 Dependence on renal dialysis; I48.91 Unspecified atrial fibrillation; D64.9 Anemia, unspecified; E78.5 Hyperlipidemia, unspecified; E87.6 Hypokalemia; E03.9 Hypothyroidism, unspecified; Z79.4 Long term (current) use of insulin; K21.9 Gastro-esophageal reflux disease without esophagitis; T41.295A Adverse effect of other general anesthetics, initial encounter; E87.5 Hyperkalemia; I25.84 Coronary atherosclerosis due to calcified coronary lesion; Y84.8 Other medical procedures as the cause of abnormal reaction of the patient, or of later complication, without mention of misadventure at the time of the procedure; I25.10 Atherosclerotic heart disease of native coronary artery without angina pectoris; Z91.81 History of falling; R45.1 Restlessness and agitation; Z79.82 Long term (current) use of aspirin; G47.33 Obstructive sleep apnea (adult) (pediatric); Z79.84 Long term (current) use of oral hypoglycemic drugs; Z79.890 Hormone replacement therapy; Z79.899 Other long term (current) drug therapy; Z90.49 Acquired absence of other specified parts of digestive tract; Z98.890 Other specified postprocedural states; Z88.0 Allergy status to penicillin
CPT/HCPCS: 36410; 36415; 36600; 70450; 71045; 76770; 76937; 80048; 80053; 80061; 80202; 80306; 81001; 82140; 82330; 82805; 83036; 83540; 83550; 83735; 84100; 84145; 84484; 85025; 85027; 85610; 85730; 86140; 86704; 86706; 87040; 87070; 87077; 87186; 87205; 87340; 87635; 90935; 93005; 93306; 93308; 93458; 94002; 94003; 94640; 94660; 95819; 95822; 96374; 99291